=== PATIENT | male | born 1935 | race Caucasian/White ===

== ENCOUNTER 2019-03-30 21:35 | Inpatient (IN) | payer OTHER, MEDICARE ==
--- NOTE | 2019-03-30 22:06 | PDOC ---
History of Present Illness - General Chief Complaint: Coffee Ground Emesis Stated Complaint: VOMITTING Time Seen by Provider: 03/30/19 21:59 - History of Present Illness Initial Comments: 03/30/19 22:47 83M with pmh of CABG, ESRD s/p nephrostomy tubes, chronic anemia, Dm, pna, sent from [facility] found producing large amount of coffee ground emesis. EMS weas immediately called. Patient is tetraplegic and trached, non verbal. [place] Vitals: BP 151/97 103 98.2 100% Vent set up A/C mode 12 BPM, TV 400 Peep 5 FiO2 40% Patient is DNR Past History - Past Medical History Allergies/Adverse Reactions: Allergies Allergy/AdvReac Type Severity Reaction Status Date / Time chlorhexidine Allergy Verified 05/17/19 22:30 Home Medications: Ambulatory Orders Finasteride 5 mg GT DAILY 03/31/19 Latanoprost/Pf [Latanoprost 0.005% Eye Drop] 1 drop OP HS 03/31/19 Bimatoprost [Lumigan] 1 drop OU DAILY 04/26/19 Acetylcysteine Po/INH 20% [Mucomyst 20 Oral / INH Use Only*] 400 mg NEB RBID vial 05/06/19 Albuterol 0.083% Nebulizer Jossie [Ventolin 0.083% Nebulizer Soln -] 1 amp NEB RQ4H amp 05/06/19 Amino Acids/Protein Hydrolys [Prosource No Carb Liquid Pkt] 30 ml GT BID@0800, 1730 packet 05/06/19 Ascorbic Acid [Vitamin C -] 500 mg GT BID tablet 05/06/19 Bacitracin - [Bacitracin Topical Ointment -] 1 applic TP BID tube 05/06/19 Buspirone HCl [Buspar -] 5 mg PO TID PRN tablet 05/06/19 Diltiazem [Cardizem -] 60 mg PO BID tablet 05/06/19 FENTANYL 12mcg PATCH [DURAGESIC 12mcg PATCH -] 1 patch TD Q72H #0 patch.td72 MDD 1 05/06/19 Fentanyl Patch Waste [Duragesic Patch Waste] 1 each MC PRN PRN each 05/06/19 Metoclopramide Oral Soln [Reglan Oral Solution -] 5 mg PEG TIDAC udc 05/06/19 Metoprolol Tartrate [Lopressor -] 100 mg PO BID tablet 05/06/19 Multivit-Minerals [Certavite-Antioxidant Liquid] 15 ml PEG DAILY cup 05/06/19 Nystatin Powder [Nystop Powder -] 1 applic TP TID applic 05/06/19 Pantoprazole Suspension [Protonix Packets For Oral Suspension -] 40 mg NGT DAILY packet 05/06/19 Polyvinyl Alcohol [Artificial Tears] 1 drop OU QID drops 05/06/19 Sodium Bicarbonate - 650 mg GT DAILY tablet 05/06/19 Sodium Chloride Inhalation [Normal Saline For Inhalation -] 3 ml IH Q6H PRN vial.neb 05/06/19 Aa/Hydrolyzed Collagen, Whey [Lps 15-30 Liquid] 30 ml GT BID 05/08/19 Acetaminophen Oral Solution [Tylenol Oral Solution -] 650 mg GT Q4H PRN Oxycodone HCl 5 mg GT DAILY 05/08/19 Acetylcysteine Po/INH 20% [Mucomyst 20 Oral / INH Use Only*] 400 mg NEB RBID vial 05/13/19 Amox-Tr/K Cl [Augmentin 500-125mg Tablet -] 1 tab PO BID #14 tab 05/13/19 Furosemide Oral Solution [Lasix Oral Solution -] 40 mg GT BID@0600,1400 udc Heparin - 5,000 unit SQ BID vial 05/13/19 Levalbuterol HCl [Xopenex] 0.31 mg IH Q8H PRN vial.neb 05/13/19 Mupirocin Ointment [Bactroban Ointment (For Decolonization) -] 1 applic NS BID applic 05/13/19 Verapamil HCl [Calan -] 80 mg PEG TID tablet 05/13/19 Anemia: Yes COPD: Yes (trach) Diabetes: Yes HTN: Yes Hypercholesterolemia: Yes Psychiatric Problems: Yes Other medical history: c. diff - Psycho Social/Smoking Cessation Hx Smoking History: Unknown if ever smoked Review of Systems - Review of Systems Able to Perform ROS?: No (trached, non verbal) *Physical Exam - Vital Signs Last Vital Signs Temp Pulse Resp BP Pulse Ox 137 H 36 H 141/93 98 03/30/19 21:40 03/30/19 21:40 03/30/19 21:40 03/30/19 21:40 - Physical Exam General Appearance: Yes: Appropriately Dressed, Moderate Distress HEENT: positive: EOMI, ANDREA, Normal ENT Inspection Neck: positive: Other (trached) Respiratory/Chest: positive: Other (mechanically vented). negative: Chest Tender Cardiovascular: positive: Regular Rhythm, Regular Rate, S1, S2 Gastrointestinal/Abdominal: positive: Protuberent, Distended, Other (Rigid abdomen, PEG tube in place) Musculoskeletal: positive: Normal Inspection. negative: CVA Tenderness Extremity: positive: Normal Capillary Refill Integumentary: positive: Ecchymosis, Bruising Neurologic: positive: Respond to painful stimul, Responsive ED Treatment Course - LABORATORY CBC & Chemistry Diagram: 05/06/19 15:15 05/06/19 15:15 - RADIOLOGY Radiology Studies Ordered: Category Date Time Status CHEST X-RAY PORTABLE* [RAD] Stat Radiology 03/30/19 21:57 Ordered Medical Decision Making - Medical Decision Making 03/30/19 23:01 83M with pmh of CABG, ESRD s/p nephrostomy tubes, chronic anemia, Dm, pna, sent from [facility] found producing large amount of coffee ground emesis. EMS weas immediately called. Patient is tetraplegic and trached, non verbal. Patient is hemodynamically stable, will r/o anemia and assess the need for transfusion. Additionally due to distended abdomen we will scan abd/pelv, as well as chest to r/o aspiration. No suspicion for sepsis at this time, will defer blood culture, abx. 03/31/19 01:24 Small pleural effusions, 4.6 aneurysm of the ascending aorta, 5.0 infrarenal AAA s/p aortoiliac stent graft, moderate ascites extending into b/l inguinal hernias Patient to be admitted to ICU for upper gi bleed and respiratory failure Discharge - Discharge Information Problems reviewed: Yes Clinical Impression/Diagnosis: Coffee ground emesis, COPD (chronic obstructive pulmonary disease), Functional quadriplegia, Ascites Condition: Stable - Admission Yes - Follow up/Referral - Patient Discharge Instructions - Post Discharge Activity
[2019-03-30 22:49] LABS: BASO % 0.4 % (0-2.0); EOS % 1.8 % (0-4.5); HEMATOCRIT 25.4 % (35.4-49); HEMOGLOBIN 7.9 GM/dL (11.7-16.9); LYMPH % 3.7 % (8-40); MCH 31.4 pg (25.7-33.7); MCHC 30.9 g/dl (32.0-35.9); MEAN CELL VOLUME 101.6 fl (80-96); NEUT % 88.1 % (42.8-82.8); PLATELET COUNT 270 K/MM3 (134-434); RDW 20.8 % (11.9-15.9); WHITE BLOOD COUNT 12.4 K/mm3 (4.0-10.0)
[2019-03-30 22:50] LABS: EPI CELLS 0.9 /HPF (0-5/HPF); HYALINE CASTS 19 /lpf (0-8); PH,URINE 7.5 (5.0-8.0); URINE APPEARANCE CLOUDY; URINE BACTERIA 8341.5 /hpf (NEGATIVE); URINE BILIRUBIN NEGATIVE (NEGATIVE); URINE COLOR YELLOW; URINE GLUCOSE (UA) NEGATIVE (NEGATIVE); URINE KETONE NEGATIVE (NEGATIVE); URINE LEUK ESTERASE 3+ (NEGATIVE); URINE NITRITE NEGATIVE (NEGATIVE); URINE PROTEIN 2+ (NEGATIVE); URINE RBC 40 /hpf (0-4); URINE UROBILINOGEN 0.2 mg/dL (0.2-1.0); URINE WBC 213 /hpf (0-5)
[2019-03-30 23:17] LABS: ALBUMIN 1.9 g/dl (3.4-5.0); BILIRUBIN,TOTAL 0.6 mg/dL (0.2-1); BLOOD UREA NITROGEN 47.8 mg/dL (7-18); CALCIUM 8.4 mg/dL (8.5-10.1); CREATININE 1.1 mg/dL (0.55-1.3); POTASSIUM 4.5 mmol/L (3.5-5.1); TOT PROT 8.3 g/dl (6.4-8.2)
[2019-03-31] MEDS ORDERED: PIPERACILLIN/TAZOB 3.375 GM 3.375 GM in DEXTROSE 5%-WATER - 50 ML IVPB ONE ×2 (01:14→09:30)
--- NOTE | 2019-03-31 01:15 | PDOC ---
Documentation entered by Wellington Sauer SCRIBE, acting as scribe for Shahla Zelaya MD. Shahla Zelaya MD: This documentation has been prepared by the Camacho boyd Daniel, SCRIBE, under my direction and personally reviewed by me in its entirety. I confirm that the documentation accurately reflects all work, treatment, procedures, and medical decision making performed by me. Attending Attestation - Resident Resident Name: Brady George - ED Attending Attestation I have performed the following: I have examined & evaluated the patient, The case was reviewed & discussed with the resident, I agree w/resident's findings & plan, Exceptions are as noted - HPI HPI: 03/30/19 23:04 The patient is an 83 year old male with a past medical history of CABG, ESRD s/ p nephrostomy tubes, pneumonia, tracheotomy, PEG tube, diabetes, and anemia here today from [facility] for evaluation of coffee ground emesis. As per EMS, the patient had coffee ground emesis today while in the shelter. Patient is non verbal and unable to contribute to history. Allergies: chlorhexidine PCP: D[facility] - Physicial Exam PE: 03/31/19 00:49 GENERAL: 83-year-old male with an intact trach and multiple medical problems HEENT: Tracheostomy intact NECK: +trach CARDIOVASCULAR: +tachycardic. PULMONARY: No wheezing, rales ABDOMINAL: +hard. +distended. EXTREMITIES: + 3+ pitting edema in all extremities. , Scattered purpura on chronic skin changes noted No cyanosis. No clubbing. No calf tenderness. SKIN: +diffuse ecchymosis. Warm and dry NEUROLOGICAL:Patient is alert and tracks with his eyes Cooperative. Good eye contact. 03/31/19 01:11 - Medical Decision Making 03/31/19 01:14 Patient admitted for UTI, infiltrates Antibiotics started 03/31/19 01:15 His labs showed leukocytosis and also significant anemia with a hemoglobin less than 8 03/31/19 01:22 CAT scan of the abdomen pelvis shows nephrostomy tubes, CAT scan of the abdomen is no small bowel obstruction, ascites and some subcutaneous edema, no free air, liver spleen pancreas are unremarkable -prior graft for aorta noted 03/31/19 01:50 pt needs to be admitted to chronic vent unit or ICU
[2019-03-31] MEDS ORDERED: PIPERACILLIN/TAZOB 3.375 GM 3.375 GM/50 ML BAG IVPB ONE ×3 (01:18→18:35)
--- NOTE | 2019-03-31 03:20 | HP ---
Admitting History and Physical - Primary Care Physician PCP: Kelly Zhang ([facility]) - Admission Chief Complaint: Respiratory Distress, Coffee Ground Emesis History of Present Illness: This is an 83 y/o man from [facility] with a PMHx of CABG, ESRD s/p nephrostomy tubes, Pneumonia, Chronic Respiratory Failure s/p Tracheotomy/ Vent dependent, PEG tube, Diabetes Mellitus, Anemia. Who presents to the ED for evaluation of coffee ground emesis and respiratory distress, per [place] paperwork. Per ED record: As per EMS, the patient had coffee ground emesis today while in the intermediate. Patient is non verbal and unable to contribute to history. ED course was noted for: (1) (2) (3) History Source: Transfer Record Limitations to Obtaining History: Clinical Condition - Past Medical History Cardiovascular: Yes: Aneurysm, CAD, HTN, Hyperlipdemia Pulmonary: Yes: COPD, Pneumonia, Other (trach/vent dependent) Renal/: Yes: Renal Failure Heme/Onc: Yes: Anemia Endocrine: Yes: Diabetes Mellitus - Past Surgical History Past Surgical History: Yes: AAA Repair, CABG Additional Past Surgical History: Trach PEG Nephrostomy Tubes - Advance Directives Advance Directives: Yes: DNR - Smoking History Smoking history: Unknown if ever smoked Have you smoked in the past 12 months: No - Alcohol/Substance Use Hx Alcohol Use: No History of Substance Use: reports: None - Social History Usual Living Arrangement: Yes: [facility] ADL: Support Services History of Recent Travel: No Home Medications - Allergies Allergies/Adverse Reactions: Allergies Allergy/AdvReac Type Severity Reaction Status Date / Time chlorhexidine Allergy Verified 03/30/19 21:38 - Home Medications Home Medications: Ambulatory Orders Acetaminophen 325 mg PO BID 03/31/19 Cyanocobalamin Vit B-12 Inj. [Redisol] 1,000 mcg IM DAILY 03/31/19 Diltiazem [Cardizem -] 30 mg PO QID 03/31/19 Escitalopram Oxalate [Lexapro -] 20 mg PO ONCE 03/31/19 Ferrous Sulfate [Feosol] 300 mg GT ONCE 03/31/19 Finasteride 5 mg PO DAILY 03/31/19 Insulin Lispro [Humalog] 100 unit SQ DAILY 03/31/19 Latanoprost/Pf [Latanoprost 0.005% Eye Drop] 7.5 ml OP ONCE 03/31/19 Lisinopril 5 mg PO ONCE 03/31/19 Metoprolol Tartrate 50 mg PO Q6H 03/31/19 Risperidone 0.5 mg PO TID 03/31/19 Family Medical History Family History: Unable to Obtain Review of Systems Unable to obtain ROS, reason: Clinical Condition Physical Examination Vital Signs: Vital Signs Temperature 99.2 F 03/30/19 22:34 Pulse Rate 137 H 03/31/19 02:15 Respiratory Rate 20 03/31/19 02:15 Blood Pressure 134/89 03/31/19 02:15 O2 Sat by Pulse Oximetry (%) 100 03/31/19 02:15 Constitutional: Yes: Mild Distress, Pallor Eyes: Yes: Conjunctiva Clear (pale), PERRL HENT: Yes: WNL, Atraumatic, Normocephalic Neck: Yes: Supple, Other (trach-vent dependent) Cardiovascular: Yes: Regular Rate and Rhythm, S1, S2 Respiratory: Yes: Diminished, Rhonchi, Tachypnea, Other (trach- vent dependent thick brownish secretions noted around trach) Gastrointestinal: Yes: Normal Bowel Sounds, Abdomen, Obese, Ascites, Other (PEG - intact) ...Rectal Exam: Yes: Guaiac Negative Renal/: Yes: Other (s/p Nephrosotomy tubes with drainage bag) Edema: Yes Edema: LLE: 3+, RLE: 3+ Peripheral Pulses WNL: Yes Integumentary: Yes: Other (purpura) Neurological: Yes: Alert ...Motor Strength: WNL Psychiatric: Yes: Alert Labs: CBC, BMP 03/30/19 22:35 03/30/19 22:35 Imaging - Results Chest X-ray: Image Reviewed Cat Scan: Report Reviewed, Image Reviewed EKG: Image Reviewed Problem List - Problems (1) GI bleed Assessment/Plan: Continue cardiac monitoring Requires ICU 2/2 Trach- Vent dependent Appreciate GI consult Appreciate [employer] consult HGB 7.9, HCT 47.8 PRBC- pending Monitor CBC, BMP closely Stool Occult neg Protonix Code(s): K92.2 - GASTROINTESTINAL HEMORRHAGE, UNSPECIFIED (2) Acute and chronic respiratory failure Assessment/Plan: Chronic Trach/Vent dependent Appreciate Pulmonology consult Monitor Spo2 Duonebs Continue home meds Code(s): J96.20 - ACUTE AND CHR RESP FAILURE, UNSP W HYPOXIA OR HYPERCAPNIA (3) ESRD (end stage renal disease) Assessment/Plan: Chronic Will continue to monitor an treat with interventions accordingly Consider Nephrology consult Avoid Nephrotoxic drugs Code(s): N18.6 - END STAGE RENAL DISEASE (4) Diabetes mellitus Assessment/Plan: Controlled BGMs Hold ISS until feeding is continued Monitor BMP Code(s): E11.9 - TYPE 2 DIABETES MELLITUS WITHOUT COMPLICATIONS (5) Anemia Assessment/Plan: Likely secondary to ESRD vs GIB PRBCs pending Monitor CBC closely Monitor vitals closely Appreciate Hematology consult Ferritin, FE, TIBC Stool Occult- neg Code(s): D64.9 - ANEMIA, UNSPECIFIED (6) Status post tracheostomy Assessment/Plan: Vent Settings, per [place] Appreciate Pulmonology consult Code(s): Z93.0 - TRACHEOSTOMY STATUS (7) COPD (chronic obstructive pulmonary disease) Assessment/Plan: Continue home meds O2 Code(s): J44.9 - CHRONIC OBSTRUCTIVE PULMONARY DISEASE, UNSPECIFIED (8) HTN (hypertension) Assessment/Plan: Stable Monitor BP No current meds, treat accordingly Code(s): I10 - ESSENTIAL (PRIMARY) HYPERTENSION (9) HLD (hyperlipidemia) Code(s): E78.5 - HYPERLIPIDEMIA, UNSPECIFIED Assessment/Plan This is a 83 y/o man from [facility] with a PMHx of CABG, HTN, HLD, ESRD s/p Nephrostomy Tubes, COPD s/p Trach/Vent Dependent, Pneumonia, PEG Placement, DM, Anemia. Admitted to ICU for Sepsis, UTI, GI Bleed, Acute on Chronic Respiratory Failure, ESRD for further evaluation of their emergent condition. Plan: See Problem List FEN Replete lytes prn NPO DVT ppx TEDs Hold AC secondary to GI Bleed Code Status: MOLST, DNR Dispo: Requires Inpatient Care Visit type - Emergency Visit Emergency Visit: Yes ED Registration Date: 03/30/19 Care time: The patient presented to the Emergency Department on the above date and was hospitalized for further evaluation of their emergent condition. - New Patient This patient is new to me today: Yes Date on this admission: 03/31/19 - Critical Care Critical Care patient: Yes Total Critical Care Time (in minutes): 40 Critical Care Statement: The care of this patient involved high complexity decision making to prevent further life threatening deterioration of the patient 's condition and/or to evaluate & treat vital organ system(s) failure or risk of failure.
--- NOTE | 2019-03-31 04:56 | CONSULT ---
Consultation: REQUESTING PROVIDER: CONSULT REQUEST: We have been asked to medically evaluate this patient for ICU admission. HISTORY OF PRESENT ILLNESS: 83 y/o/m from [facility] with PMHx of CABG, HTN, HLD, ESRD s/p Nephrostomy Tubes, COPD s/p Trach/Vent Dependent, Pneumonia, PEG Placement, DM, Anemia presenting for coffee ground emesis from alf. As per alf patient had 4 episodes coffee ground emesis at alf after which EMS was called and patient was brought to the hospital. As per alf patient does have a labile heart rate which fluctuates from the 70s-110s. Patient non-verbal and unable to contribute to history. Patient to be admitted for UTI, pulmonary infiltrates, GI bleed. CT chest, abd, pelvis showing small pleural effusions, 4.6 aneurysm of the ascending aorta, 5.0 infrarenal AAA s/p aortoiliac stent graft, moderate ascites extending into b/l inguinal hernias. REVIEW OF SYSTEMS: unable to obtain 2/2 patient status PHYSICAL EXAMINATION Vital Signs - 24 hr 03/30/19 03/30/19 03/30/19 21:40 22:07 22:34 Temperature 99.2 F Pulse Rate 137 H Pulse Rate [ Right] Respiratory 36 H 37 H Rate Blood Pressure 141/93 Blood Pressure [Right Arm] O2 Sat by Pulse 98 Oximetry (%) 03/31/19 03/31/19 01:59 02:15 Temperature Pulse Rate Pulse Rate [ 137 H Right] Respiratory 32 H 20 Rate Blood Pressure Blood Pressure 134/89 [Right Arm] O2 Sat by Pulse 100 Oximetry (%) GENERAL: Awake, alert HEAD: Normal with no signs of trauma. EYES: EOMI, no scleral icterus EARS, NOSE, THROAT: Dry mucous membranes NECK: trachesotomy in place LUNGS: Diminished breath sounds bilaterally, tracheostomy vent sounds on auscultation. No wheezes, and no crackles. No accessory muscle use HEART: Tachycardic ABDOMEN: distended, hard abdomen. not tender to palpation. PEG tube in place MUSCULOSKELETAL: Normal range of motion at all joints. No bony deformities or tenderness. No CVA tenderness. EXTREMITIES: 2+ pulses, warm. 2+ edema non pitting NEUROLOGICAL: alert, tracks PSYCHIATRIC: Cooperative. Good eye contact SKIN: Warm, dry Laboratory Results - last 24 hr 03/30/19 03/30/1919 22:35 22:35 22:35 WBC 12.4 H RBC 2.50 L Hgb 7.9 L Hct 25.4 L MCV 101.6 H MCH 31.4 MCHC 30.9 L RDW 20.8 H Plt Count 270 MPV 9.0 Absolute Neuts (auto) 10.9 H Neutrophils % 88.1 H Lymphocytes % 3.7 L Monocytes % 6.0 Eosinophils % 1.8 Basophils % 0.4 Nucleated RBC % 0 Retic Count Sodium 147 H Potassium 4.5 Chloride 113 H Carbon Dioxide 26 Anion Gap 8 BUN 47.8 H Creatinine 1.1 Est GFR (CKD-EPI)AfAm 72.07 Est GFR (CKD-EPI)NonAf 62.19 Random Glucose 96 Lactic Acid Calcium 8.4 L Total Bilirubin 0.6 AST 22 ALT 23 Alkaline Phosphatase 223 H Creatine Kinase 26 Troponin I < 0.02 Total Protein 8.3 H Albumin 1.9 L Urine Color Urine Appearance Urine pH Ur Specific [place] Urine Protein Urine Glucose (UA) Urine Ketones Urine Blood Urine Nitrite Urine Bilirubin Urine Urobilinogen Ur Leukocyte Esterase Urine WBC (Auto) Urine RBC (Auto) Urine Casts (Auto) U Epithel Cells (Auto) Urine Bacteria (Auto) Stool Occult Blood Blood Type Antibody Screen 03/30/19 03/30/19 03/30/19 22:35 22:35 22:35 WBC RBC Hgb Hct MCV MCH MCHC RDW Plt Count MPV Absolute Neuts (auto) Neutrophils % Lymphocytes % Monocytes % Eosinophils % Basophils % Nucleated RBC % Retic Count 4.82 H Sodium Potassium Chloride Carbon Dioxide Anion Gap BUN Creatinine Est GFR (CKD-EPI)AfAm Est GFR (CKD-EPI)NonAf Random Glucose Lactic Acid Calcium Total Bilirubin AST ALT Alkaline Phosphatase Creatine Kinase Troponin I Total Protein Albumin Urine Color Urine Appearance Urine pH Ur Specific [place] Urine Protein Urine Glucose (UA) Urine Ketones Urine Blood Urine Nitrite Urine Bilirubin Urine Urobilinogen Ur Leukocyte Esterase Urine WBC (Auto) Urine RBC (Auto) Urine Casts (Auto) U Epithel Cells (Auto) Urine Bacteria (Auto) Stool Occult Blood Negative Blood Type O NEGATIVE Antibody Screen Negative 03/30/19 03/31/19 22:35 01:27 WBC RBC Hgb Hct MCV MCH MCHC RDW Plt Count MPV Absolute Neuts (auto) Neutrophils % Lymphocytes % Monocytes % Eosinophils % Basophils % Nucleated RBC % Retic Count Sodium Potassium Chloride Carbon Dioxide Anion Gap BUN Creatinine Est GFR (CKD-EPI)AfAm Est GFR (CKD-EPI)NonAf Random Glucose Lactic Acid 2.1 H Calcium Total Bilirubin AST ALT Alkaline Phosphatase Creatine Kinase Troponin I Total Protein Albumin Urine Color Yellow Urine Appearance Cloudy Urine pH 7.5 Ur Specific [place] 1.017 Urine Protein 2+ H Urine Glucose (UA) Negative Urine Ketones Negative Urine Blood 2+ H Urine Nitrite Negative Urine Bilirubin Negative Urine Urobilinogen 0.2 Ur Leukocyte Esterase 3+ H Urine WBC (Auto) 213 Urine RBC (Auto) 40 Urine Casts (Auto) 19 U Epithel Cells (Auto) 0.9 Urine Bacteria (Auto) 8341.5 Stool Occult Blood Blood Type Antibody Screen Active Medications Generic Name Dose Route Start Last Admin Trade Name Freq PRN Reason Stop Dose Admin Mupirocin 1 applic 03/31/19 10:00 Bactroban Ointment (For Decolonization) - NS 04/05/19 09:59 BID [facility] ASSESSMENT/PLAN: 83 y/o/m from [facility] with PMHx of CABG, HTN, HLD, ESRD s/p Nephrostomy Tubes, COPD s/p Trach/Vent Dependent, Pneumonia, PEG Placement, DM, Anemia presenting for coffee ground emesis from alf. Patient to be admitted for UTI, pulmonary infiltrates, GI bleed. #Neuro - alert, tracks movement - Continue home medications as per primary team #Cardiac - Hx of CABG, HTN, HLD - Chest CT showing 4.6 aneurysm of the ascending aorta, 5.0 infrarenal AAA s/p aortoiliac stent graft. Can monitor for signs of enlargement #Pulm - hx COPD s/p tracheostomy placement. On vent - Consider ABGs as needed to adjust vent settings appropriately - pleural effusions seen on Chest CT - maintain SpO2 >90% #GI - patient with multiple episodes of coffee ground emesis in [place] as per MI staff - recommend GI consult - Stool for occult blood test negative - monitor H&H with serial CBCs - consider blood transfusion to reach Hgb level of 8 due to cardiac history - H&H - 7.01/13.4 #ID - UA positive for UTI - Given zosyn in ED, will give 2nd dose 8hrs after initial dose - Lactic Acid at 2.1, trend to normal - WBC at 12.4, afebrile. monitor - Consider ID consult #Endo - Hx of DM - BGMs - ISS #Renal - hx of ESRD s/p nephrostomy tubes - BUN/Cr 47.8/1.1 - monitor urine output, BUN/Cr #Prophylaxis - hold chemical AC due to concern for GI bleed #FEN - hold IVF as patient has edema of extremities, pleural effusions on CXR - con consider PEG tube feeds #Disposition - Stable for monitoring on vent floor - Will monitor patient closely, can re-consult in morning if patient's condition is worsening - Patient is DNR Visit type - Emergency Visit Emergency Visit: Yes ED Registration Date: 03/31/19 Care time: The patient presented to the Emergency Department on the above date and was hospitalized for further evaluation of their emergent condition. - New Patient This patient is new to me today: Yes Date on this admission: 03/31/19 - Critical Care Critical Care patient: No ATTENDING PHYSICIAN STATEMENT I saw and evaluated the patient. I reviewed the resident's note and discussed the case with the resident. I agree with the resident's findings and plan as documented. SUBJECTIVE: OBJECTIVE: ASSESSMENT AND PLAN:
[2019-03-31] MEDS ORDERED: METOPROLOL TARTRATE 50 MG TABLET (FP) ONE ×4 (06:11→18:51)
[2019-03-31] MEDS: METOPROLOL TARTRATE 50 MG TABLET (FP) PEG SCH ×3 (06:16→18:30)
[2019-03-31 07:33] LABS: BASO % 0.3 % (0-2.0); EOS % 0.9 % (0-4.5); HEMATOCRIT 22.9 % (35.4-49); HEMOGLOBIN 7.3 GM/dL (11.7-16.9); LYMPH % 3.5 % (8-40); MCH 32.4 pg (25.7-33.7); MCHC 31.9 g/dl (32.0-35.9); MEAN CELL VOLUME 101.5 fl (80-96); MEAN PLT VOLUME 8.8 fl (7.5-11.1); NEUT % 88.3 % (42.8-82.8); PLATELET COUNT 238 K/MM3 (134-434); RBC 2.26 M/mm3 (4.00-5.60); RDW 21.4 % (11.9-15.9); WHITE BLOOD COUNT 12.7 K/mm3 (4.0-10.0)
[2019-03-31 07:56] LABS: BLOOD UREA NITROGEN 49.4 mg/dL (7-18); CALCIUM 7.8 mg/dL (8.5-10.1); CREATININE 1.1 mg/dL (0.55-1.3); MAGNESIUM 2.5 mg/dL (1.8-2.4); PHOSPHOROUS 3.8 mg/dL (2.5-4.9); POTASSIUM 4.1 mmol/L (3.5-5.1)
--- NOTE | 2019-03-31 08:40 | CON.GI ---
Consult Consult Specialty:: Gastroenterology Referred by:: Dr. Waters - History of Present Illness Chief Complaint: Coffee ground emesis History of Present Illness: 83yo male h/o Prostate ca s/p radiation, CAD s/p CABG (05/2018), DM, HTN, ESRD s/ p Nephrostomy Tubes, COPD s/p Trach/Vent Dependent, PEG presenting from senior living with coffee ground emesis. Pt awake/alert, attempts to verbalize though unable to provide history. Notes reviewed and spoke with pts son by phone, pt noted to have episodes of coffee ground emesis at senior living. Pt denies abdominal pain or nausea. No vomiting reported in ED. Brown bm noted per nursing staff. Taking iron supplementation. Per pts son pt had complicated hospital course following CABG at [facility], also had GI and bleeding, underwent endoscopy without obvious source found. No previous records available and unclear Hb baseline. Also states they had difficulty controlled HR in setting of recent onset A fib. CT chest/abd/pelvis: Bilateral pleural effusions, consolidation, moderate to large ascites - History Source History Provided By: Family Member, Medical Record - Past Medical History Cardio/Vascular: Yes: Aneurysm, CAD, HTN, Hyperlipdemia Pulmonary: Yes: COPD, Pneumonia, Other (trach/vent dependent) Renal/: Yes: Renal Failure Endocrine: Yes: Diabetes Mellitus - Past Surgical History Past Surgical History: Yes: AAA Repair, CABG - Alcohol/Substance Use Hx Alcohol Use: No History of Substance Use: reports: None - Smoking History Smoking history: Unknown if ever smoked Have you smoked in the past 12 months: No - Social History ADL: Support Services History of Recent Travel: No Home Medications - Allergies Allergies/Adverse Reactions: Allergies Allergy/AdvReac Type Severity Reaction Status Date / Time chlorhexidine Allergy Verified 03/30/19 21:38 - Home Medications Home Medications: Ambulatory Orders Acetaminophen 325 mg PO BID 03/31/19 Cyanocobalamin Vit B-12 Inj. [Redisol] 1,000 mcg IM DAILY 03/31/19 Diltiazem [Cardizem -] 30 mg PO QID 03/31/19 Escitalopram Oxalate [Lexapro -] 20 mg PO ONCE 03/31/19 Ferrous Sulfate [Feosol] 300 mg GT ONCE 03/31/19 Finasteride 5 mg PO DAILY 03/31/19 Insulin Lispro [Humalog] 100 unit SQ DAILY 03/31/19 Latanoprost/Pf [Latanoprost 0.005% Eye Drop] 7.5 ml OP ONCE 03/31/19 Lisinopril 5 mg PO ONCE 03/31/19 Metoprolol Tartrate 50 mg PO Q6H 03/31/19 Risperidone 0.5 mg PO TID 03/31/19 Family Medical History Family History: Unable to Obtain Review of Systems Unable to obtain ROS, reason: Pt minimally verbal Physical Exam-GI Vital Signs: Vital Signs Temperature 99.2 F 03/30/19 22:34 Pulse Rate 138 H 03/31/19 06:14 Respiratory Rate 24 H 03/31/19 06:14 Blood Pressure 123/72 03/31/19 06:14 O2 Sat by Pulse Oximetry (%) 100 03/31/19 06:14 Constitutional: Yes: No Distress, Calm, Other (tracheostomy in place on vent) Cardiovascular: Yes: Tachycardia Respiratory: Yes: Mechanically Ventilated ...Palpate: Yes: Other (Abd softly distended, nontender, +PEG in place, flushed with greenish secretions, scant coffee grounds material) Labs: CBC, BMP 03/31/19 06:50 03/31/19 06:50 Imaging - Results Cat Scan: Report Reviewed, Image Reviewed Problem List - Problems (1) Coffee ground emesis Assessment/Plan: 83yo male h/o CABG, HTN, ESRD s/p Nephrostomy Tubes, COPD s/p Trach/Vent Dependent, PEG, DM presenting from senior living with coffee ground emesis with macrocytic anemia. CT revealing bilateral pleural effusions, consolidation and ascites. Azotemia noted however brown stool and scant coffee grounds mostly greenish secretions via PEG. Unclear Hb baseline. May have gastritis/gastropathy , PUD, esophagitis, avms in setting of possible ileus/delayed emptying however pt tachycardic with leucocytosis and underlying infection to be excluded. Pt DNR. -No urgency for endoscopy in absence of overt or ongoing GI bleed and considering pts age/comorbidities risks/benefits need to be carefully weighed. Spoke with pts son and discussed risks/benefits of endoscopy, states he would be agreeable to endoscopy if needed to exclude a source of bleeding. -Continue to monitor Hb (try to obtain prior labs if possible to determine baseline) -NPO for now -PPI daily -Try to obtain endoscopy reports from [facility] if possible ( within 6-8 months per pts son) -Check iron studies/ferritin -Continue optimization from cardiorespiratory standpoint, needs HR control and infection excluded -Recommend RUQ US to further assess liver parenchyma and for ascites and consider diagnostic paracentesis though possibly cardiac in origin -Follow up cultures -If overt bleeding with drop in Hb or hemodynamic instability please notify GI for possible more urgent intervention otherwise would reassess and consider EGD once optimized Code(s): K92.0 - HEMATEMESIS
[2019-03-31] MEDS ORDERED: dilTIAZem HCL 30 MG TABLET (FP) NR SCH ×2 (09:15→10:00)
[2019-03-31 09:16] LABS: INR 1.49 (0.83-1.09); PROTHROMBIN TIME (PATIENT) 17.7 SEC (9.7-13.0)
[2019-03-31 09:19] LABS: ACTIVATED PTT 33.6 SECONDS (25.2-36.5)
[2019-03-31] MEDS ORDERED: dilTIAZem HCL 30 MG TABLET (FP) ONE ×4 (09:19→16:10)
[2019-03-31] MEDS ORDERED: LISINOPRIL 5 MG TABLET (FP) ONE ×2 (09:19→09:30)
[2019-03-31] MEDS: LISINOPRIL 5 MG TABLET (FP) PEG SCH (09:30)
[2019-03-31] MEDS: dilTIAZem HCL 30 MG TABLET (FP) NR SCH ×3 (09:42→21:54)
[2019-03-31] MEDS: PIPERACILLIN/TAZOB 3.375 GM 3.375 GM in DEXTROSE 5%-WATER - 50 ML IVPB SCH ×2 (09:42→18:30)
--- NOTE | 2019-03-31 09:42 | PN ---
Progress Note, Physician History of Present Illness: 83 y/o/m from [facility] with PMHx of CABG, HTN, HLD, ESRD s/p Nephrostomy Tubes, COPD s/p Trach/Vent Dependent, Pneumonia, PEG Placement, DM, Anemia [facility] - Current Medication List Current Medications: Active Medications Diltiazem HCl (Cardizem -) 30 mg NR Q6H [facility]SEM Last Admin: 03/31/19 09:42 Dose: Not Given Piperacillin Sod/Tazobactam (Sod 3.375 gm/ Dextrose) 50 mls @ 100 mls/hr IVPB ONCE ONE; Protocol Stop: 03/31/19 09:59 Last Admin: 03/31/19 09:30 Dose: 100 mls/hr Piperacillin Sod/Tazobactam (Sod 3.375 gm/ Dextrose) 50 mls @ 100 mls/hr IVPB Q8H-IV BASSEM; Protocol Stop: 03/31/19 18:29 Last Admin: 03/31/19 09:42 Dose: Not Given Piperacillin Sod/Tazobactam (Sod 3.375 gm/ Dextrose) 50 mls @ 100 mls/hr IVPB Q8H-IV BASSEM; Protocol Lisinopril (Prinivil) 5 mg PEG DAILY [facility] Last Admin: 03/31/19 09:30 Dose: 5 mg Metoprolol Tartrate (Lopressor -) 50 mg PEG Q6HPO [facility] Last Admin: 03/31/19 06:16 Dose: 50 mg Mupirocin (Bactroban Ointment (For Decolonization) -) 1 applic NS BID BASSEM Stop: 04/05/19 09:59 - Objective Vital Signs: Vital Signs Temperature 99.2 F 03/30/19 22:34 Pulse Rate 138 H 03/31/19 06:14 Respiratory Rate 24 H 03/31/19 06:14 Blood Pressure 123/72 03/31/19 06:14 O2 Sat by Pulse Oximetry (%) 100 03/31/19 06:14 Cardiovascular: Yes: Tachycardia, Pulse Irregular, S1, S2 Respiratory: Yes: Mechanically Ventilated, Rhonchi Gastrointestinal: Yes: Normal Bowel Sounds, Soft Edema: Yes Labs: CBC, BMP 03/31/19 06:50 03/31/19 06:50 INR, PTT INR 1.49 (0.83-1.09) H 03/31/19 08:50 Problem List - Problems (1) Coffee ground emesis Assessment/Plan: TRANSFUSE PRBC GI CONSULT FOLLOW LABS Code(s): K92.0 - HEMATEMESIS (2) Anemia Assessment/Plan: ABOVE Code(s): D64.9 - ANEMIA, UNSPECIFIED (3) Sepsis Assessment/Plan: R/O UTI -PNA CULTURES FOLLOW CXR ABX ID CONSULT Code(s): A41.9 - SEPSIS, UNSPECIFIED ORGANISM (4) Acute and chronic respiratory failure Assessment/Plan: NEBS PULM CONSULT VENT Code(s): J96.20 - ACUTE AND CHR RESP FAILURE, UNSP W HYPOXIA OR HYPERCAPNIA (5) COPD (chronic obstructive pulmonary disease) Assessment/Plan: ABOVE Code(s): J44.9 - CHRONIC OBSTRUCTIVE PULMONARY DISEASE, UNSPECIFIED (6) Diabetes mellitus Assessment/Plan: BGM Code(s): E11.9 - TYPE 2 DIABETES MELLITUS WITHOUT COMPLICATIONS (7) HTN (hypertension) Code(s): I10 - ESSENTIAL (PRIMARY) HYPERTENSION
--- NOTE | 2019-03-31 10:12 | EKG ---
Test Reason : Blood Pressure : / mmHG Vent. Rate : 136 BPM Atrial Rate : 136 BPM P-R Int : 152 ms QRS Dur : 156 ms QT Int : 296 ms P-R-T Axes : 000 -47 149 degrees QTc Int : 445 ms a trial tachycardia with 2;1 block LEFT AXIS DEVIATION NON-SPECIFIC INTRA-VENTRICULAR CONDUCTION BLOCK ABNORMAL ECG NO PREVIOUS ECGS AVAILABLE Confirmed by CLARENCE TELLO MD ([id number]) on 03/31/2019 10:11:36 AM Referred By: Confirmed By:CLARENCE TELLO MD
--- NOTE | 2019-03-31 10:40 | PN ---
Progress Note (short form) - Note Progress Note: ID consult dictated imp/reccd 83 yo man chronic resp failure trach , recently admitted 03/17 to [facility]- details not known- vre noted sent for coffee ground emesis noted to be anemic and tachycardic no hypotension lactic acid 2.1 wbc 12.4 no fever alert follows commands- is able to move his hands and feet has bilateral PCN tubes further details not known ct scans with ascites/anasarca/bilateral pleural effusions with consolidation/ atelectasis of the lower lobes I doubt he has infection but given perisistent tachycardia will continue zosyn pending cultures blood transfusion has been ordered GI eval- he has an elevated retic count contact isolation for VRE
--- NOTE | 2019-03-31 12:49 | PN ---
Teaching Attending Note Name of Resident: Sabrina Schultz ATTENDING PHYSICIAN STATEMENT I saw and evaluated the patient. I reviewed the resident's note and discussed the case with the resident. I agree with the resident's findings and plan as documented. SUBJECTIVE: Pt seen and examined in the ED. Remains tachycardic in rapid atrial flutter, about to receive PRBC transfusion. OBJECTIVE: Vital Signs Period Temp Pulse Resp BP Sys/Kang Pulse Ox Last 24 Hr 98.5 F-99.2 F 137-140 12-37 103-141/65-93 98-100 Intake & Output 03/28/19 03/29/19 03/30/19 03/31/19 23:59 23:59 23:59 23:59 Output Total 200 Balance -200 Weight 79.379 kg Gen: vented, awake Heart: tachycardic, regular Lung: decreased breath sounds at the bases Abd: soft, nontender, bilateral nephrostomy tubes Ext: no edema CBC, BMP 03/31/19 06:50 03/31/19 06:50 Active Medications Diltiazem HCl (Cardizem -) 30 mg NR Q6H [facility] Last Admin: 03/31/19 09:42 Dose: Not Given Piperacillin Sod/Tazobactam (Sod 3.375 gm/ Dextrose) 50 mls @ 100 mls/hr IVPB Q8H-IV BASSEM; Protocol Stop: 03/31/19 18:29 Last Admin: 03/31/19 09:42 Dose: Not Given Lisinopril (Prinivil) 5 mg PEG DAILY [facility] Last Admin: 03/31/19 09:30 Dose: 5 mg Metoprolol Tartrate (Lopressor -) 50 mg PEG Q6HPO [facility] Last Admin: 03/31/19 06:16 Dose: 50 mg Mupirocin (Bactroban Ointment (For Decolonization) -) 1 applic NS BID [facility] Stop: 04/05/19 09:59 ASSESSMENT AND PLAN: Chronic Respiratory Failure r/o UTI/Pneumonia/Sepsis Lactic Acidosis Atrial Flutter with RVR r/o GI Bleed Anemia CAD s/p CABG COPD HTN Hyperlipidemia - continue antibiotics - f/u cultures - transfuse PRBC - protonix - monitor H/H - rate control - hold anticoagulation - IVF - hold feeds - will need ICU monitoring if heart rates remain rapid
[2019-03-31] MEDS ORDERED: DIGOXIN 0.5 MG/2 ML AMPUL IVPUSH ONE (13:19)
--- NOTE | 2019-03-31 16:37 | CON.CARD ---
Consult Consult Specialty:: Cardiology Referred by:: kamron Pratt Reason for Consultation:: Aflutter - History of Present Illness Chief Complaint: coffee ground emesis History of Present Illness: 83 year old male with a pmhx of prostate CA s/p radiation, CAD s/p CABG 05/2018, dm, htn, esrd, copd, and s/p Trach/vent/peg sent from [facility] for coffee ground emesis. Patient cannot give history. Hgb 7.3 EKG: atach/flutter with VR 136bpm, NIVCD CT chest/abd/pelvis: Bilateral pleural effusions, consolidation, moderate to large ascites - History Source History Provided By: Medical Record - Past Medical History Cardio/Vascular: Yes: Aneurysm, CAD, HTN, Hyperlipdemia Pulmonary: Yes: COPD, Pneumonia, Other (trach/vent dependent) Renal/: Yes: Renal Failure Endocrine: Yes: Diabetes Mellitus - Past Surgical History Past Surgical History: Yes: AAA Repair, CABG - Alcohol/Substance Use Hx Alcohol Use: No History of Substance Use: reports: None - Smoking History Smoking history: Unknown if ever smoked Have you smoked in the past 12 months: No - Social History ADL: Support Services History of Recent Travel: No Home Medications - Allergies Allergies/Adverse Reactions: Allergies Allergy/AdvReac Type Severity Reaction Status Date / Time chlorhexidine Allergy Verified 03/30/19 21:38 - Home Medications Home Medications: Ambulatory Orders Acetaminophen 325 mg PO BID 03/31/19 Cyanocobalamin Vit B-12 Inj. [Redisol] 1,000 mcg IM DAILY 03/31/19 Diltiazem [Cardizem -] 30 mg PO QID 03/31/19 Escitalopram Oxalate [Lexapro -] 20 mg PO ONCE 03/31/19 Ferrous Sulfate [Feosol] 300 mg GT ONCE 03/31/19 Finasteride 5 mg PO DAILY 03/31/19 Insulin Lispro [Humalog] 100 unit SQ DAILY 03/31/19 Latanoprost/Pf [Latanoprost 0.005% Eye Drop] 7.5 ml OP ONCE 03/31/19 Lisinopril 5 mg PO ONCE 03/31/19 Metoprolol Tartrate 50 mg PO Q6H 03/31/19 Risperidone 0.5 mg PO TID 03/31/19 Vital Signs: Vital Signs Temperature 98.3 F 03/31/19 12:45 Pulse Rate 139 H 03/31/19 12:45 Respiratory Rate 23 H 03/31/19 14:10 Blood Pressure 111/72 03/31/19 12:45 O2 Sat by Pulse Oximetry (%) 100 03/31/19 11:07 Constitutional: Yes: Other (trach/vent) Neck: Yes: Supple Respiratory: Yes: Diminished Gastrointestinal: Yes: Soft Cardiovascular: Yes: Regular Rate and Rhythm JVD: No Carotid Bruit: No Heart Sounds: Yes: S1, S2 Edema: LLE: 1+, RLE: 1+ - Other Data Labs, Other Data: CBC, BMP 03/31/19 06:50 03/31/19 06:50 INR, PTT INR 1.49 (0.83-1.09) H 03/31/19 08:50 Troponin, BNP 03/30/19 22:35 Troponin I < 0.02 Troponin, BNP 03/30/19 22:35 Troponin I < 0.02 Imaging - Results Chest X-ray: Report Reviewed EKG: Image Reviewed Assessment/Plan 83 year old male with a pmhx of prostate CA s/p radiation, CAD s/p CABG 05/2018, dm, htn, esrd, copd, and s/p Trach/vent/peg sent from [facility] for coffee ground emesis. Patient cannot give history. Hgb 7.3 WBC 12 EKG: atach/flutter with VR 136bpm, NIVCD CT chest/abd/pelvis: Bilateral pleural effusions, consolidation, moderate to large ascites 4.6cm Throacic anuerysm 1) CV -No intervention for TAA 4.6cm. BP control and beta filippo -Abx as per primary team. HR uncontrolled in setting of anemia and possible infection. Tx underlying infection if indicated. F/u GI regarding anemia and any GI work up indicated. Restart home metoprolol and diltiazem. HR now controlled around 90bpm. If becomes uncontrolled on regimen will adjust home meds. As per chart arrhythmia occured in past but patient not on AC. Would not start AC yet, but if no contraindication found by primary team and as per GI in the future than consider AC in future.
[2019-03-31] MEDS: MUPIROCIN 2% TOPICAL OINTMENT FOR DECOLONIZATION NS SCH (21:55)
[2019-03-31] MEDS ORDERED: PNEUMOC 13-VAL CONJ-DIP CRM/PF 0.5 ML DISP.SYRIN IM ONE (22:16)
[2019-04-01] MEDS ORDERED: PIPERACILLIN/TAZOBACTAM 3.375 GM VIAL IVPB ONE ×2 (01:33→17:59)
[2019-04-01] MEDS ORDERED: DEXTROSE 5%-WATER - 50 ML IVPB ONE (01:33)
[2019-04-01] MEDS ORDERED: PIPERACILLIN/TAZOB 3.375 GM 3.375 GM in DEXTROSE 5%-WATER - 50 ML IVPB SCH (02:00)
[2019-04-01] MEDS: dilTIAZem HCL 30 MG TABLET (FP) NR SCH ×4 (02:56→21:27)
[2019-04-01] MEDS: METOPROLOL TARTRATE 50 MG TABLET (FP) PEG SCH ×4 (06:12→18:32)
--- NOTE | 2019-04-01 07:14 | PN ---
Physical Exam: SUBJECTIVE: Patient seen and examined. Unable to talk due to trach but able to nod and shake head in answer in questions. Spoke with son over the phone who states that patient was recently in a LTAC and needed blood transfusions every 10 days or so. Patient's heart rate is now controlled ~91. OBJECTIVE: Vital Signs Period Temp Pulse Resp BP Sys/Kang Pulse Ox Last 24 Hr 98.3 F-98.5 F 89-140 10-24 103-137/63-83 99-100 GENERAL: Awake, alert HEAD: Normal with no signs of trauma. EYES: EOMI, no scleral icterus ENT: Dry mucous membranes NECK: trachesotomy in place LUNGS: Diminished breath sounds bilaterally. No wheezes, and no crackles. No accessory muscle use HEART: RRR, no murmur noted ABDOMEN: distended, tense abdomen. not tender to palpation. PEG tube in place EXTREMITIES: 2+ pulses, warm. 2+ edema non pitting NEUROLOGICAL: alert, tracks with eye movement, able to answer questions by nodding/shaking head PSYCHIATRIC: Cooperative. Good eye contact SKIN: Warm, dry Laboratory Results - last 24 hr 03/30/19 03/31/19 03/31/19 22:35 06:50 06:50 WBC 12.7 H RBC 2.26 L Hgb 7.3 L Hct 22.9 L MCV 101.5 H MCH 32.4 MCHC 31.9 L RDW 21.4 H Plt Count 238 MPV 8.8 Absolute Neuts (auto) 11.2 H Neutrophils % 88.3 H Lymphocytes % 3.5 L Monocytes % 7.0 Eosinophils % 0.9 Basophils % 0.3 Nucleated RBC % 0 PT with INR INR PTT (Actin FS) Sodium Potassium Chloride Carbon Dioxide Anion Gap BUN Creatinine Est GFR (CKD-EPI)AfAm Est GFR (CKD-EPI)NonAf POC Glucometer Random Glucose Lactic Acid Calcium Phosphorus Magnesium Blood Type O NEGATIVE O NEGATIVE Antibody Screen Negative Crossmatch See Detail 03/31/19 03/31/19 03/31/19 06:50 06:55 08:50 WBC RBC Hgb Hct MCV MCH MCHC RDW Plt Count MPV Absolute Neuts (auto) Neutrophils % Lymphocytes % Monocytes % Eosinophils % Basophils % Nucleated RBC % PT with INR 17.70 H INR 1.49 H PTT (Actin FS) 33.6 Sodium 146 H Potassium 4.1 Chloride 113 H Carbon Dioxide 25 Anion Gap 8 BUN 49.4 H Creatinine 1.1 Est GFR (CKD-EPI)AfAm 72.07 Est GFR (CKD-EPI)NonAf 62.19 POC Glucometer Random Glucose 89 Lactic Acid 1.3 Calcium 7.8 L Phosphorus 3.8 Magnesium 2.5 H Blood Type Antibody Screen Crossmatch 03/31/19 21:41 WBC RBC Hgb Hct MCV MCH MCHC RDW Plt Count MPV Absolute Neuts (auto) Neutrophils % Lymphocytes % Monocytes % Eosinophils % Basophils % Nucleated RBC % PT with INR INR PTT (Actin FS) Sodium Potassium Chloride Carbon Dioxide Anion Gap BUN Creatinine Est GFR (CKD-EPI)AfAm Est GFR (CKD-EPI)NonAf POC Glucometer 88 Random Glucose Lactic Acid Calcium Phosphorus Magnesium Blood Type Antibody Screen Crossmatch Active Medications Generic Name Dose Route Start Last Admin Trade Name Freq PRN Reason Stop Dose Admin Diltiazem HCl 30 mg 03/31/19 09:15 04/01/19 02:56 Cardizem - NR 30 mg Q6H [facility] Administration Piperacillin Sod/Tazobactam 50 mls @ 100 mls/hr 04/01/19 02:00 04/01/19 01:41 Sod 3.375 gm/ Dextrose IVPB 04/01/19 18:29 100 mls/hr Q8H-IV [facility] Administration Protocol Piperacillin Sod/Tazobactam 50 mls @ 100 mls/hr 04/02/19 02:00 Sod 3.375 gm/ Dextrose IVPB Q8H-IV [facility] Protocol Lisinopril 5 mg 03/31/19 10:00 03/31/19 09:30 Prinivil PEG 5 mg DAILY [facility] Administration Metoprolol Tartrate 50 mg 03/31/19 06:00 04/01/19 06:12 Lopressor - PEG 50 mg Q6HPO [facility] Administration Mupirocin 1 applic 03/31/19 22:00 03/31/19 21:55 Bactroban Ointment (For Decolonization) - NS 04/05/19 21:59 1 applic BID [facility] Administration ASSESSMENT/PLAN: 83 y/o/m from [facility] with PMHx of CABG, HTN, HLD, ESRD s/p Nephrostomy Tubes, COPD s/p Trach/Vent Dependent, Pneumonia, PEG Placement, DM, Anemia presenting for coffee ground emesis from [facility]. Patient to be admitted for UTI, pulmonary infiltrates, GI bleed. #Neuro - alert, tracks movement, able to shake and nod head in answer to questions - Continue home medications as per primary team #Cardiac - Hx of CABG, HTN, HLD - Chest CT showing 4.6 aneurysm of the ascending aorta, 5.0 infrarenal AAA s/p aortoiliac stent graft. Can monitor for signs of enlargement - As per Cardio: No intervention for TAA 4.6cm. BP control and beta filippo - Heart rate control with home meds, Lopressor 50mg Q6hr, Diltiazem 30mg Q6hr #Pulm - hx COPD s/p tracheostomy placement. On vent - Consider ABGs as needed to adjust vent settings appropriately - pleural effusions seen on Chest CT - maintain SpO2 >90% #GI - patient with multiple episodes of coffee ground emesis in [place] as per [place] staff - Stool for occult blood test negative - monitor H&H with serial CBCs - H&H - 9.3/28.2, goal Hgb of 8 - Transfused 2 units PRBCs - As per GI - No urgency for endoscopy in absence of overt or ongoing GI bleed and considering pts age/comorbidities risks/benefits need to be carefully weighed. Spoke with pts son and discussed risks/benefits of endoscopy, states he would be agreeable to endoscopy if needed to exclude a source of bleeding. - RUQ U/S showing biliary sludge with small calculi, moderate ascites, hepatomegaly, possible right nephrolithiasis w/no evidence of hydronephrosis #ID - UA positive for UTI - Zosyn 3.375 IV Q8hr - Lactic Acid at 2.1 on admission, now normalized - WBC at 12.2, afebrile. monitor - ID on board, recs appreciated #Endo - Hx of DM - BGMs - ISS #Renal - hx of ESRD s/p nephrostomy tubes - BUN/Cr 40.8/1.0 - monitor urine output, BUN/Cr #Prophylaxis - hold chemical AC due to concern for GI bleed #FEN - hold IVF due to volume overloaded status - NPO for now, clear with GI before starting feeds #Disposition - Stable for monitoring on vent floor - Patient is DNR, MOLST form in chart Visit type - Emergency Visit Emergency Visit: Yes ED Registration Date: 03/31/19 Care time: The patient presented to the Emergency Department on the above date and was hospitalized for further evaluation of their emergent condition. - New Patient This patient is new to me today: No - Critical Care Critical Care patient: Yes Total Critical Care Time (in minutes): 36 Critical Care Statement: The care of this patient involved high complexity decision making to prevent further life threatening deterioration of the patient's condition and/or to evaluate & treat vital organ system(s) failure or risk of failure. ATTENDING PHYSICIAN STATEMENT I saw and evaluated the patient. I reviewed the resident's note and discussed the case with the resident. I agree with the resident's findings and plan as documented. SUBJECTIVE: OBJECTIVE: ASSESSMENT AND PLAN:
[2019-04-01 07:43] LABS: BASO % 0.5 % (0-2.0); EOS % 1.6 % (0-4.5); HEMATOCRIT 28.2 % (35.4-49); HEMOGLOBIN 9.3 GM/dL (11.7-16.9); LYMPH % 3.8 % (8-40); MCH 31.9 pg (25.7-33.7); MEAN CELL VOLUME 96.8 fl (80-96); MEAN PLT VOLUME 8.6 fl (7.5-11.1); MONO % 6.1 % (3.8-10.2); PLATELET COUNT 219 K/MM3 (134-434); RBC 2.91 M/mm3 (4.00-5.60); RDW 22.2 % (11.9-15.9); WHITE BLOOD COUNT 12.2 K/mm3 (4.0-10.0)
[2019-04-01 08:15] LABS: IRON SERUM 35 ug/dL (50-175); TOTAL IRON BINDING CAPACITY 184 ug/dL (250-450)
[2019-04-01 08:31] LABS: ALBUMIN 1.7 g/dl (3.4-5.0); BILIRUBIN,TOTAL 1.2 mg/dL (0.2-1); BLOOD UREA NITROGEN 40.8 mg/dL (7-18); CALCIUM 8.2 mg/dL (8.5-10.1); POTASSIUM 4.1 mmol/L (3.5-5.1); TOT PROT 7.3 g/dl (6.4-8.2)
--- NOTE | 2019-04-01 09:57 | PN ---
Progress Note, Physician Chief Complaint: EVENTS AND NOTES REVIEWED PATIENT IN ICU VENTED AWAKE - Current Medication List Current Medications: Active Medications Diltiazem HCl (Cardizem -) 30 mg NR Q6H [facility] Last Admin: 04/01/19 09:26 Dose: 30 mg Piperacillin Sod/Tazobactam (Sod 3.375 gm/ Dextrose) 50 mls @ 100 mls/hr IVPB Q8H-IV [facility]; Protocol Lisinopril (Prinivil) 5 mg PEG DAILY [facility] Last Admin: 03/31/19 09:30 Dose: 5 mg Metoprolol Tartrate (Lopressor -) 50 mg PEG Q6HPO [facility] Last Admin: 04/01/19 06:12 Dose: 50 mg Mupirocin (Bactroban Ointment (For Decolonization) -) 1 applic NS BID [facility] Stop: 04/05/19 21:59 Last Admin: 03/31/19 21:55 Dose: 1 applic - Objective Vital Signs: Vital Signs Temperature 98.2 F 04/01/19 07:00 Pulse Rate 90 04/01/19 09:00 Respiratory Rate 16 04/01/19 09:00 Blood Pressure 136/82 04/01/19 09:00 O2 Sat by Pulse Oximetry (%) 100 04/01/19 09:00 Constitutional: Yes: Mild Distress Cardiovascular: Yes: Pulse Irregular Respiratory: Yes: Mechanically Ventilated Gastrointestinal: Yes: Soft Genitourinary: Yes: Incontinence Musculoskeletal: Yes: Muscle Weakness Neurological: Yes: Pre-Existing Deficit Labs: CBC, BMP 04/01/19 07:20 04/01/19 07:20 INR, PTT INR 1.49 (0.83-1.09) H 03/31/19 08:50 Problem List - Problems (1) Acute and chronic respiratory failure Code(s): J96.20 - ACUTE AND CHR RESP FAILURE, UNSP W HYPOXIA OR HYPERCAPNIA (2) Anemia Code(s): D64.9 - ANEMIA, UNSPECIFIED (3) COPD (chronic obstructive pulmonary disease) Code(s): J44.9 - CHRONIC OBSTRUCTIVE PULMONARY DISEASE, UNSPECIFIED (4) Coffee ground emesis Code(s): K92.0 - HEMATEMESIS (5) Diabetes mellitus Code(s): E11.9 - TYPE 2 DIABETES MELLITUS WITHOUT COMPLICATIONS (6) ESRD (end stage renal disease) Code(s): N18.6 - END STAGE RENAL DISEASE (7) GI bleed Code(s): K92.2 - GASTROINTESTINAL HEMORRHAGE, UNSPECIFIED (8) HLD (hyperlipidemia) Code(s): E78.5 - HYPERLIPIDEMIA, UNSPECIFIED (9) HTN (hypertension) Code(s): I10 - ESSENTIAL (PRIMARY) HYPERTENSION (10) Sepsis Code(s): A41.9 - SEPSIS, UNSPECIFIED ORGANISM (11) Status post tracheostomy Code(s): Z93.0 - TRACHEOSTOMY STATUS Assessment/Plan VENT SUPPORT IN ICU PULM/CARDIO EVAL APPRECIATED PROTONIX IV GI EVAL APPRECIATED MONITOR LABS/H/H TRANSFUSE PRBC NEEDED DVT VENODYNES IV ABX CHECK CULTURES
[2019-04-01] MEDS ORDERED: PT OWN MED DRAWER 7, Y5N ONE (11:02)
[2019-04-01] MEDS: MUPIROCIN 2% TOPICAL OINTMENT FOR DECOLONIZATION NS SCH ×2 (11:03→21:28)
[2019-04-01] MEDS: LISINOPRIL 5 MG TABLET (FP) PEG SCH (11:03)
--- NOTE | 2019-04-01 11:29 | PN ---
Teaching Attending Note Name of Resident: Sabrina Schultz ATTENDING PHYSICIAN STATEMENT I saw and evaluated the patient. I reviewed the resident's note and discussed the case with the resident. I agree with the resident's findings and plan as documented. SUBJECTIVE: Pt seen and examined in the ICU. Vented, awake. Heart rates improved. OBJECTIVE: Vital Signs Period Temp Pulse Resp BP Sys/Kang Pulse Ox Last 24 Hr 98.1 F-98.4 F 89-139 10-24 111-137/63-83 100-100 Intake & Output 03/29/19 03/30/19 03/31/19 04/01/19 23:59 23:59 23:59 23:59 Intake Total 700 50 Output Total 750 100 Balance -50 -50 Weight 79.379 kg 79.379 kg 105.404 kg Gen: vented, awake Heart: RRR Lung: decreased breath sounds at the bases Abd: soft, nontender Ext: + edema CBC, BMP 04/01/19 07:20 04/01/19 07:20 Active Medications Diltiazem HCl (Cardizem -) 30 mg NR Q6H [facility] Last Admin: 04/01/19 09:26 Dose: 30 mg Piperacillin Sod/Tazobactam (Sod 3.375 gm/ Dextrose) 50 mls @ 100 mls/hr IVPB Q8H-IV [facility]; Protocol Lisinopril (Prinivil) 5 mg PEG DAILY [facility] Last Admin: 04/01/19 11:03 Dose: 5 mg Metoprolol Tartrate (Lopressor -) 50 mg PEG Q6HPO [facility] Last Admin: 04/01/19 06:12 Dose: 50 mg Mupirocin (Bactroban Ointment (For Decolonization) -) 1 applic NS BID [facility] Stop: 04/05/19 21:59 Last Admin: 04/01/19 11:03 Dose: 1 applic ASSESSMENT AND PLAN: Chronic Respiratory Failure r/o UTI/Pneumonia/Sepsis Lactic Acidosis Atrial Flutter with RVR r/o GI Bleed Anemia CAD s/p CABG COPD HTN Hyperlipidemia - continue antibiotics - f/u cultures - protonix - monitor H/H - rate control - holding anticoagulation - holding feeds - GI f/u - heart rates improved, can monitor on vent floor
--- NOTE | 2019-04-01 15:04 | PN ---
Progress Note, Physician Chief Complaint: Vent/trach Aflutter rate controlled on tele History of Present Illness: 83 year old male with a pmhx of prostate CA s/p radiation, CAD s/p CABG 05/2018, dm, htn, esrd, copd, and s/p Trach/vent/peg sent from assisted for coffee ground emesis. Patient cannot give history. Hgb 7.3 EKG: atach/flutter with VR 136bpm, NIVCD CT chest/abd/pelvis: Bilateral pleural effusions, consolidation, moderate to large ascites - Current Medication List Current Medications: Active Medications Diltiazem HCl (Cardizem -) 30 mg NR Q6H [facility] Last Admin: 04/01/19 09:26 Dose: 30 mg Piperacillin Sod/Tazobactam (Sod 3.375 gm/ Dextrose) 50 mls @ 100 mls/hr IVPB Q8H-IV [facility]; Protocol Lisinopril (Prinivil) 5 mg PEG DAILY [facility] Last Admin: 04/01/19 11:03 Dose: 5 mg Metoprolol Tartrate (Lopressor -) 50 mg PEG Q6HPO [facility] Last Admin: 04/01/19 12:23 Dose: 50 mg Mupirocin (Bactroban Ointment (For Decolonization) -) 1 applic NS BID [facility] Stop: 04/05/19 21:59 Last Admin: 04/01/19 11:03 Dose: 1 applic - Objective Vital Signs: Vital Signs Temperature 98.0 F 04/01/19 14:00 Pulse Rate 92 H 04/01/19 14:00 Respiratory Rate 32 H 04/01/19 14:00 Blood Pressure 121/76 04/01/19 14:00 O2 Sat by Pulse Oximetry (%) 100 04/01/19 09:00 Neck: Yes: Supple Cardiovascular: Yes: Regular Rate and Rhythm, S1, S2 Respiratory: Yes: Diminished Gastrointestinal: Yes: Soft Edema: LLE: 1+, RLE: 1+ Labs: CBC, BMP 04/01/19 07:20 04/01/19 07:20 INR, PTT INR 1.49 (0.83-1.09) H 03/31/19 08:50 Assessment/Plan 83 year old male with a pmhx of prostate CA s/p radiation, CAD s/p CABG 05/2018, dm, htn, esrd, copd, and s/p Trach/vent/peg sent from assisted for coffee ground emesis. Patient cannot give history. Hgb 7.3 WBC 12 EKG: atach/flutter with VR 136bpm, NIVCD CT chest/abd/pelvis: Bilateral pleural effusions, consolidation, moderate to large ascites 4.6cm Throacic anuerysm 1) CV -No intervention for TAA 4.6cm. BP control and beta filippo -Abx as per primary team. HR is well controlled on home diltiazem and metoprolol F/u GI regarding anemia and any GI work up indicated. As per chart arrhythmia occured in past but patient not on AC. Would not start AC yet, but if no contraindication found by primary team and as per GI in the future than consider AC in future. Will sign off at this time.
[2019-04-01] MEDS ORDERED: PHYTONADIONE 10 MG/1 ML AMP SQ ONE (16:03)
--- NOTE | 2019-04-01 17:03 | PN.GI ---
GI Progress Note Subjective: No overt bleeding since admission No acute events heart rate improved Abdominal US revealed moderate ascites 2 U PRBC transfused - Objective Vital Signs: Vital Signs Temperature 98.0 F 04/01/19 14:00 Pulse Rate 92 H 04/01/19 14:00 Respiratory Rate 19 04/01/19 16:29 Blood Pressure 121/76 04/01/19 14:00 O2 Sat by Pulse Oximetry (%) 100 04/01/19 09:00 Constitutional: Calm Eyes: No: Sclera Icterus Cardiovascular: Yes: Pulse Irregular Respiratory: Yes: Diminished (at bases bilaterally) Gastrointestinal Inspection: Yes: Scars (mid upper abdominal surgical scar), Other (G-tube in place in LUQ with some excoriated skin on the caudad border of the external bolster.). No: Distention ...Auscultate: Yes: Normoactive Bowel Sounds ...Palpate: Yes: Soft. No: Tenderness (No grimacing upon palpation) ...Percussion: No: Tympanitic Edema: Yes Edema: LLE: 2+, RLE: 2+ Neurological: Yes: Alert Labs: CBC, BMP 04/01/19 07:20 04/01/19 07:20 INR, PTT INR 1.49 (0.83-1.09) H 03/31/19 08:50 Problem List - Problems (1) Coffee ground emesis Assessment/Plan: No further vomiting. No melena or gross rectal bleeding Had long discussion w/ his daughter this evening via telephone. Explained that while there could have been other causes of the coffee ground vomiting and anemia including infection / sepsis , we Discussed upper endoscopy to evaluate for potential upper GI source, prior to anticoagulation being initiated. We discussed potential risks of the procedure like but not limited to bleeding, perforation requiring surgery to repair, infection, sedation medication effects all of which could be potentially life threatening. She went on to explain that just prior to CABG, in 05/09, he had GI work-up to evaluate for bleeding. This included EGD and colonoscopy. She stated that she would discuss things with her brother and come to a decision regarding this. For now: Protonix 40mg IVPB daily ordered Monitor for overt bleeding Resume tube feeds per primary team Macrocytosis: no prexisting liver disease. Consider hematology evaluation Consider IR guided diagnostic paracentesis with fluid sent for cell count with diff, culture, cytology, albumin, total protein. Would need hepatic panel drawn same day as paracentesis Vitamin K 10mg SC x 1 ordered Will await decision regarding EGD Code(s): K92.0 - HEMATEMESIS
[2019-04-01] MEDS ORDERED: PIPERACILLIN/TAZOB 3.375 GM 3.375 GM in DEXTROSE 5%-WATER - 50 ML IVPB ONE (17:55)
[2019-04-01] MEDS ORDERED: DEXTROSE 5%-WATER - 100 ML IVPB ONE (18:00)
[2019-04-01] MEDS ORDERED: DEXTROSE 50%-WATER - 25 GM/50 ML VIAL IVPUSH ONE (21:28)
[2019-04-02] MEDS: METOPROLOL TARTRATE 50 MG TABLET (FP) PEG SCH ×6 (01:04→23:59)
[2019-04-02] MEDS ORDERED: DEXTROSE 5%-WATER - 50 ML IVPB ONE ×2 (01:13→10:34)
[2019-04-02] MEDS ORDERED: PIPERACILLIN/TAZOBACTAM 3.375 GM VIAL IVPB ONE ×2 (01:13→10:33)
[2019-04-02] MEDS: PIPERACILLIN/TAZOB 3.375 GM 3.375 GM in DEXTROSE 5%-WATER - 50 ML IVPB SCH ×2 (01:26→10:49)
[2019-04-02] MEDS ORDERED: DEXTROSE 50%-WATER - 25 GM/50 ML VIAL IVPUSH ONE (02:21)
[2019-04-02] MEDS ORDERED: SODIUM CHLORIDE FOR INHALATION 3 ML VIAL.NEB IH PRN (02:23)
[2019-04-02] MEDS ORDERED: DEXTROSE 50%-WATER - 25 GM/50 ML VIAL ONE (02:50)
[2019-04-02] MEDS: dilTIAZem HCL 30 MG TABLET (FP) NR SCH ×3 (06:48→17:41)
[2019-04-02 08:53] LABS: HEMATOCRIT 30.2 % (35.4-49); HEMOGLOBIN 9.8 GM/dL (11.7-16.9); MCHC 32.4 g/dl (32.0-35.9); MEAN CELL VOLUME 95.8 fl (80-96); MEAN PLT VOLUME 8.4 fl (7.5-11.1); PLATELET COUNT 230 K/MM3 (134-434); RBC 3.16 M/mm3 (4.00-5.60); RDW 21.9 % (11.9-15.9); WHITE BLOOD COUNT 13.4 K/mm3 (4.0-10.0)
[2019-04-02 09:13] LABS: ALBUMIN 1.8 g/dl (3.4-5.0); BLOOD UREA NITROGEN 36.5 mg/dL (7-18); MAGNESIUM 2.4 mg/dL (1.8-2.4); POTASSIUM 3.6 mmol/L (3.5-5.1); TOT PROT 7.2 g/dl (6.4-8.2)
[2019-04-02] MEDS ORDERED: PIPERACILLIN/TAZOB 3.375 GM 3.375 GM in DEXTROSE 5%-WATER - 50 ML IVPB SCH (10:00)
[2019-04-02] MEDS: LISINOPRIL 5 MG TABLET (FP) PEG SCH (10:48)
[2019-04-02] MEDS ORDERED: PT OWN MED DRAWER 7, Y5N ONE (12:01)
--- NOTE | 2019-04-02 12:19 | PN ---
Progress Note, Physician History of Present Illness: pulmonary awake alert on vent support,ac mode,-resp distress - Current Medication List Current Medications: Active Medications Diltiazem HCl (Cardizem -) 30 mg NR Q6HPO [facility] Last Admin: 04/02/19 12:14 Dose: 30 mg Piperacillin Sod/Tazobactam (Sod 3.375 gm/ Dextrose) 50 mls @ 100 mls/hr IVPB Q8H-IV [facility]; Protocol Last Admin: 04/02/19 10:49 Dose: 100 mls/hr Lisinopril (Prinivil) 5 mg PEG DAILY [facility] Last Admin: 04/02/19 10:48 Dose: 5 mg Metoprolol Tartrate (Lopressor -) 50 mg PEG Q6HPO [facility] Last Admin: 04/02/19 12:13 Dose: 50 mg Sodium Chloride (Normal Saline For Inhalation -) 3 ml IH Q6H PRN PRN Reason: COUGH - Objective Vital Signs: Vital Signs Temperature 98.3 F 04/02/19 10:43 Pulse Rate 92 H 04/02/19 10:43 Respiratory Rate 22 H 04/02/19 10:43 Blood Pressure 148/89 04/02/19 10:43 O2 Sat by Pulse Oximetry (%) 100 04/01/19 19:57 Constitutional: Yes: Well Nourished, Calm Eyes: Yes: WNL HENT: Yes: WNL Neck: Yes: WNL Cardiovascular: Yes: Pulse Irregular, S1, S2 Respiratory: Yes: Diminished Gastrointestinal: Yes: Normal Bowel Sounds, Abdomen, Obese, Ascites Extremities: Yes: WNL Edema: Yes Labs: CBC, BMP 04/02/19 08:05 04/02/19 08:05 INR, PTT INR 1.49 (0.83-1.09) H 03/31/19 08:50 Assessment/Plan ASSESSMENT AND PLAN: Chronic Respiratory Failure r/o UTI/Pneumonia/Sepsis Lactic Acidosis Atrial Flutter with RVR r/o GI Bleed Anemia CAD s/p CABG COPD HTN Hyperlipidemia Ascites - antibiotics - normal tranfusion threshold - protonix - monitor H/H - rate control - hold anticoagulation - IVF - paracentesis DR MENA
--- NOTE | 2019-04-02 12:36 | PN ---
Progress Note, Physician Chief Complaint: patient seen and examined - Current Medication List Current Medications: Active Medications Diltiazem HCl (Cardizem -) 30 mg NR Q6HPO [facility] Last Admin: 04/02/19 12:14 Dose: 30 mg Piperacillin Sod/Tazobactam (Sod 3.375 gm/ Dextrose) 50 mls @ 100 mls/hr IVPB Q8H-IV [facility]; Protocol Last Admin: 04/02/19 10:49 Dose: 100 mls/hr Lisinopril (Prinivil) 5 mg PEG DAILY [facility] Last Admin: 04/02/19 10:48 Dose: 5 mg Metoprolol Tartrate (Lopressor -) 50 mg PEG Q6HPO [facility] Last Admin: 04/02/19 12:13 Dose: 50 mg Sodium Chloride (Normal Saline For Inhalation -) 3 ml IH Q6H PRN PRN Reason: COUGH - Objective Vital Signs: Vital Signs Temperature 98.3 F 04/02/19 10:43 Pulse Rate 92 H 04/02/19 10:43 Respiratory Rate 22 H 04/02/19 10:43 Blood Pressure 148/89 04/02/19 10:43 O2 Sat by Pulse Oximetry (%) 100 04/01/19 19:57 Labs: CBC, BMP 04/02/19 08:05 04/02/19 08:05 INR, PTT INR 1.49 (0.83-1.09) H 03/31/19 08:50
--- NOTE | 2019-04-02 12:41 | PN ---
Progress Note, Physician Chief Complaint: patinent seen and examined - Current Medication List Current Medications: Active Medications Diltiazem HCl (Cardizem -) 30 mg NR Q6HPO [facility] Last Admin: 04/02/19 12:14 Dose: 30 mg Piperacillin Sod/Tazobactam (Sod 3.375 gm/ Dextrose) 50 mls @ 100 mls/hr IVPB Q8H-IV [facility]; Protocol Last Admin: 04/02/19 10:49 Dose: 100 mls/hr Lisinopril (Prinivil) 5 mg PEG DAILY [facility] Last Admin: 04/02/19 10:48 Dose: 5 mg Metoprolol Tartrate (Lopressor -) 50 mg PEG Q6HPO [facility] Last Admin: 04/02/19 12:13 Dose: 50 mg Sodium Chloride (Normal Saline For Inhalation -) 3 ml IH Q6H PRN PRN Reason: COUGH - Objective Vital Signs: Vital Signs Temperature 98.3 F 04/02/19 10:43 Pulse Rate 92 H 04/02/19 10:43 Respiratory Rate 22 H 04/02/19 10:43 Blood Pressure 148/89 04/02/19 10:43 O2 Sat by Pulse Oximetry (%) 100 04/01/19 19:57 Constitutional: Yes: Calm Neck: Yes: Other (trach) Cardiovascular: Yes: Regular Rate and Rhythm, S1, S2 Respiratory: Yes: Mechanically Ventilated Gastrointestinal: Yes: Normal Bowel Sounds, Soft Genitourinary: Yes: Other (nephrostomy tube) Labs: CBC, BMP 04/02/19 08:05 04/02/19 08:05 INR, PTT INR 1.49 (0.83-1.09) H 03/31/19 08:50 Problem List - Problems (1) Acute and chronic respiratory failure Assessment/Plan: iv abx pleural effusion and bibasilar consolidatin on chest CT Code(s): J96.20 - ACUTE AND CHR RESP FAILURE, UNSP W HYPOXIA OR HYPERCAPNIA (2) UTI (urinary tract infection) Assessment/Plan: Microbiology 03/31/19 02:17 Urine - Urine Nephrostomy Tube Left Urine Culture - Preliminary Klebsiella Pneumoniae - Esbl ID eval contact isolation Code(s): N39.0 - URINARY TRACT INFECTION, SITE NOT SPECIFIED (3) Ascites Assessment/Plan: to get paracentesis and send fluid for cytology and LDh, fluid analysis also vitamin K ordered repeat coags Code(s): R18.8 - OTHER ASCITES (4) Atrial flutter Assessment/Plan: control on metoprolol and diltiazem Code(s): I48.92 - UNSPECIFIED ATRIAL FLUTTER
--- NOTE | 2019-04-02 13:24 | PN ---
Progress Note (short form) - Note Progress Note: alert trach to vent tachycardia improved with transfusion Vital Signs Period Temp Pulse Resp BP Sys/Kang Pulse Ox Last 24 Hr 98 F-98.3 F 92-101 16-32 115-148/69-90 100-100 cor-rrr lungs decreased bs at bases abd soft, +ascites ext traced edema CBC, BMP 04/02/19 08:05 04/02/19 08:05 Microbiology 03/31/19 02:17 Urine - Urine Nephrostomy Tube Left Urine Culture - Preliminary Klebsiella Pneumoniae - Esbl 03/31/19 01:27 Blood - Peripheral Venous Blood Culture - Preliminary NO GROWTH OBTAINED AFTER 48 HOURS, INCUBATION TO CONTINUE FOR 3 DAYS. 03/31/19 01:27 Blood - Peripheral Venous Blood Culture - Preliminary NO GROWTH OBTAINED AFTER 48 HOURS, INCUBATION TO CONTINUE FOR 3 DAYS. has bilateral PCN tubes ct scans with ascites/anasarca/bilateral pleural effusions with consolidation/ atelectasis of the lower lobes a/p anemia ascites chronic respiratory failure doubt infection nephrostomy urine with CRE- STRICT CONTACT ISOLATION with dedicated equiment will d/c antibioitics at this time contact isolation for CRE
[2019-04-02 20:55] LABS: BF WBC & OTHER NUCLEATED CELLS 184 /mm3; BODY FLUID MACROPHAGES 66 %; BODY FLUID MESOTHELIAL 10 %
[2019-04-03] MEDS: METOPROLOL TARTRATE 50 MG TABLET (FP) PEG SCH ×4 (06:30→23:07)
[2019-04-03] MEDS: dilTIAZem HCL 30 MG TABLET (FP) NR SCH ×5 (06:31→23:07)
--- NOTE | 2019-04-03 08:57 | PN ---
Progress Note (short form) - Note Progress Note: Abdomen soft, nontender, active bowel sounds. Chemistries pending on ascitic fluid. Note albumin of 1.8 with elevated globulins; also 2+ proteinuria, macrocytic anemia -> raise suspicion of hematologic malignancy. SPEP and serum VIGNESH ordered.
[2019-04-03] MEDS: LISINOPRIL 5 MG TABLET (FP) PEG SCH (11:01)
[2019-04-03] MEDS ORDERED: DEXTROSE 50%-WATER - 25 GM/50 ML VIAL IVPUSH ONE ×2 (12:12→18:32)
--- NOTE | 2019-04-03 12:32 | PN ---
Progress Note, Physician - Current Medication List Current Medications: Active Medications Dextrose (D50w (Vial) -) 25 gm IVPUSH NOW ONE Stop: 04/03/19 12:13 Diltiazem HCl (Cardizem -) 30 mg NR Q6HPO [facility] Last Admin: 04/03/19 06:31 Dose: 30 mg Lisinopril (Prinivil) 5 mg PEG DAILY [facility] Last Admin: 04/03/19 11:01 Dose: 5 mg Metoprolol Tartrate (Lopressor -) 50 mg PEG Q6HPO [facility] Last Admin: 04/03/19 11:01 Dose: 50 mg Sodium Chloride (Normal Saline For Inhalation -) 3 ml IH Q6H PRN PRN Reason: COUGH - Objective Vital Signs: Vital Signs Temperature 97.7 F 04/03/19 05:00 Pulse Rate 90 04/03/19 08:09 Respiratory Rate 25 H 04/03/19 11:48 Blood Pressure 132/78 04/03/19 05:00 O2 Sat by Pulse Oximetry (%) 99 04/03/19 08:09 Cardiovascular: Yes: S1, S2 Respiratory: Yes: Mechanically Ventilated Gastrointestinal: Yes: Normal Bowel Sounds, Soft Labs: CBC, BMP 04/02/19 08:05 04/02/19 08:05 INR, PTT INR 1.49 (0.83-1.09) H 03/31/19 08:50 Problem List - Problems (1) Ascites Assessment/Plan: paracentesis GI Noted Chemistries pending on ascitic fluid. Note albumin of 1.8 with elevated globulins; also 2+ proteinuria, macrocytic anemia -> raise suspicion of hematologic malignancy. SPEP and serum VIGNESH ordered. Code(s): R18.8 - OTHER ASCITES (2) Anemia Assessment/Plan: -Gi consult noted -Hem consult Code(s): D64.9 - ANEMIA, UNSPECIFIED (3) Sepsis Assessment/Plan: 03/31/19 02:17 Urine - Urine Nephrostomy Tube Left Urine Culture - Preliminary Klebsiella Pneumoniae - Esbl ID eval noted--Off Abx contact isolation Code(s): A41.9 - SEPSIS, UNSPECIFIED ORGANISM (4) Acute and chronic respiratory failure Assessment/Plan: off iv abx per id pleural effusion and bibasilar consolidatin on chest CT pulm on case Code(s): J96.20 - ACUTE AND CHR RESP FAILURE, UNSP W HYPOXIA OR HYPERCAPNIA (5) COPD (chronic obstructive pulmonary disease) Code(s): J44.9 - CHRONIC OBSTRUCTIVE PULMONARY DISEASE, UNSPECIFIED (6) Diabetes mellitus Code(s): E11.9 - TYPE 2 DIABETES MELLITUS WITHOUT COMPLICATIONS (7) HTN (hypertension) Assessment/Plan: Vital Signs Period Temp Pulse Resp BP Sys/Kang Pulse Ox Last 24 Hr 97.7 F-98.2 F 90-95 20-26 130-140/78-81 99-100 Code(s): I10 - ESSENTIAL (PRIMARY) HYPERTENSION (8) Atrial flutter Assessment/Plan: control on metoprolol and diltiazem Code(s): I48.92 - UNSPECIFIED ATRIAL FLUTTER
--- NOTE | 2019-04-03 12:38 | PN ---
Progress Note, Physician History of Present Illness: pulmonary awake,alert,on vent support ac mode,-resp distress - Current Medication List Current Medications: Active Medications Dextrose (D50w (Vial) -) 25 gm IVPUSH NOW ONE Stop: 04/03/19 12:13 Diltiazem HCl (Cardizem -) 30 mg NR Q6HPO [facility] Lisinopril (Prinivil) 5 mg PEG DAILY [facility] Last Admin: 04/03/19 11:01 Dose: 5 mg Metoprolol Tartrate (Lopressor -) 50 mg PEG Q6HPO [facility] Last Admin: 04/03/19 11:01 Dose: 50 mg Sodium Chloride (Normal Saline For Inhalation -) 3 ml IH Q6H PRN PRN Reason: COUGH - Objective Vital Signs: Vital Signs Temperature 97.7 F 04/03/19 05:00 Pulse Rate 90 04/03/19 08:09 Respiratory Rate 25 H 04/03/19 11:48 Blood Pressure 132/78 04/03/19 05:00 O2 Sat by Pulse Oximetry (%) 99 04/03/19 08:09 Constitutional: Yes: Well Nourished, Calm Eyes: Yes: WNL HENT: Yes: WNL Neck: Yes: WNL (trach) Cardiovascular: Yes: Pulse Irregular, S1, S2 Respiratory: Yes: Diminished Gastrointestinal: Yes: Soft, Abdomen, Obese Extremities: Yes: WNL Edema: No Labs: Problem List - Problems (1) Acute and chronic respiratory failure Code(s): J96.20 - ACUTE AND CHR RESP FAILURE, UNSP W HYPOXIA OR HYPERCAPNIA (2) Anemia Code(s): D64.9 - ANEMIA, UNSPECIFIED (3) Ascites Code(s): R18.8 - OTHER ASCITES (4) Atrial flutter Code(s): I48.92 - UNSPECIFIED ATRIAL FLUTTER (5) COPD (chronic obstructive pulmonary disease) Code(s): J44.9 - CHRONIC OBSTRUCTIVE PULMONARY DISEASE, UNSPECIFIED (6) GI bleed Code(s): K92.2 - GASTROINTESTINAL HEMORRHAGE, UNSPECIFIED (7) HLD (hyperlipidemia) Code(s): E78.5 - HYPERLIPIDEMIA, UNSPECIFIED (8) HTN (hypertension) Code(s): I10 - ESSENTIAL (PRIMARY) HYPERTENSION (9) Status post tracheostomy Code(s): Z93.0 - TRACHEOSTOMY STATUS Assessment/Plan ASSESSMENT AND PLAN: Chronic Respiratory Failure r/o UTI/Pneumonia/Sepsis Lactic Acidosis Atrial Flutter with RVR r/o GI Bleed Anemia CAD s/p CABG COPD HTN Hyperlipidemia Ascites - antibiotics - normal tranfusion threshold - protonix - monitor H/H - rate control - hold anticoagulation - IVF DR MENA
[2019-04-03] MEDS ORDERED: DEXTROSE 50%-WATER - 25 GM/50 ML VIAL ONE (12:45)
--- NOTE | 2019-04-03 16:56 | CONSULT ---
Consult Consult Specialty:: Hematology Reason for Consultation:: R/O Hematologic Malignancy - History of Present Illness History of Present Illness: 83 year old gentleman with a pmhx of prostate CA s/p radiation, CAD s/p CABG 2018, dm, htn, esrd, copd, and s/p Trach/vent/peg sent from alf for coffee ground emesis. Patient unable to provide medical history. Hematology was consulted for possible hematologic malignancies - History Source History Provided By: Medical Record Limitations to Obtaining History: Clinical Condition - Past Medical History Cardio/Vascular: Yes: Aneurysm, CAD, HTN, Hyperlipdemia Pulmonary: Yes: COPD, Pneumonia, Other (trach/vent dependent) Renal/: Yes: Renal Failure Endocrine: Yes: Diabetes Mellitus - Past Surgical History Past Surgical History: Yes: AAA Repair, CABG - Alcohol/Substance Use Hx Alcohol Use: No History of Substance Use: reports: None - Smoking History Smoking history: Unknown if ever smoked Have you smoked in the past 12 months: No - Social History ADL: Support Services History of Recent Travel: No Home Medications - Allergies Allergies/Adverse Reactions: Allergies Allergy/AdvReac Type Severity Reaction Status Date / Time chlorhexidine Allergy Verified 03/30/19 21:38 - Home Medications Home Medications: Ambulatory Orders Acetaminophen 325 mg PO BID 03/31/19 Cyanocobalamin Vit B-12 Inj. [Redisol] 1,000 mcg IM DAILY 03/31/19 Diltiazem [Cardizem -] 30 mg PO QID 03/31/19 Escitalopram Oxalate [Lexapro -] 20 mg PO ONCE 03/31/19 Ferrous Sulfate [Feosol] 300 mg GT ONCE 03/31/19 Finasteride 5 mg PO DAILY 03/31/19 Insulin Lispro [Humalog] 100 unit SQ DAILY 03/31/19 Latanoprost/Pf [Latanoprost 0.005% Eye Drop] 7.5 ml OP ONCE 03/31/19 Lisinopril 5 mg PO ONCE 03/31/19 Metoprolol Tartrate 50 mg PO Q6H 03/31/19 Risperidone 0.5 mg PO TID 03/31/19 Physical Exam Vital Signs: Vital Signs Temperature 98.2 F 04/03/19 15:28 Pulse Rate 92 H 04/03/19 12:50 Respiratory Rate 24 H 04/03/19 12:50 Blood Pressure 160/80 04/03/19 12:50 O2 Sat by Pulse Oximetry (%) 100 04/03/19 09:00 Constitutional: Yes: No Distress Eyes: Yes: WNL, Conjunctiva Clear HENT: Yes: WNL Neck: Yes: WNL Cardiovascular: Yes: WNL Respiratory: Yes: WNL Gastrointestinal: Yes: Normal Bowel Sounds Integumentary: Yes: WNL, Bruising Neurological: Yes: Alert Labs: CBC, BMP 04/02/19 08:05 04/02/19 08:05 Assessment/Plan 83 y/o gentleman with a pmhx of prostate CA s/p radiation, CAD s/p CABG 05/2018, dm, htn, esrd, copd, and s/p Trach/vent/peg sent from alf for coffee ground emesis. Patient unable to provide history. Team suspicious for hematologic malignancies Recommend: 1) SPEP/UPEP ordered by team. Consider adding FLC , Beta 2 microglobulin 2) Given several red blood cell transfusions unlikely that lab determinations will be accurate now, but in the future VitB12, MMA, Folic Acid, Iron profile should be determined as well 3) May consider bone marrow examination in the future if no vitamin deficits are present 4) Thank you for this consult
[2019-04-04] MEDS: dilTIAZem HCL 30 MG TABLET (FP) NR SCH ×4 (07:06→23:11)
[2019-04-04] MEDS: METOPROLOL TARTRATE 50 MG TABLET (FP) PEG SCH ×4 (07:06→23:11)
[2019-04-04] MEDS ORDERED: PT OWN MED DRAWER 7, Y5N ONE (10:02)
[2019-04-04] MEDS: LISINOPRIL 5 MG TABLET (FP) PEG SCH (10:45)
--- NOTE | 2019-04-04 11:01 | PN ---
Progress Note, Physician - Current Medication List Current Medications: Active Medications Diltiazem HCl (Cardizem -) 30 mg NR Q6HPO [facility] Last Admin: 04/04/19 07:06 Dose: 30 mg Lisinopril (Prinivil) 5 mg PEG DAILY [facility] Last Admin: 04/04/19 10:45 Dose: 5 mg Metoprolol Tartrate (Lopressor -) 50 mg PEG Q6HPO [facility] Last Admin: 04/04/19 07:06 Dose: 50 mg Sodium Chloride (Normal Saline For Inhalation -) 3 ml IH Q6H PRN PRN Reason: COUGH - Objective Vital Signs: Vital Signs Temperature 97.5 F L 04/03/19 23:15 Pulse Rate 78 04/04/19 08:05 Respiratory Rate 18 04/04/19 08:05 Blood Pressure 160/78 04/03/19 23:15 O2 Sat by Pulse Oximetry (%) 98 04/04/19 08:05 Cardiovascular: Yes: S1, S2 Respiratory: Yes: Mechanically Ventilated Gastrointestinal: Yes: Normal Bowel Sounds, Soft Labs: CBC, BMP 04/02/19 08:05 04/02/19 08:05 INR, PTT INR 1.49 (0.83-1.09) H 03/31/19 08:50 Problem List - Problems (1) Ascites Assessment/Plan: paracentesis GI Noted Chemistries pending on ascitic fluid. Note albumin of 1.8 with elevated globulins; also 2+ proteinuria, macrocytic anemia -> raise suspicion of hematologic malignancy. SPEP and serum VIGNESH ordered. Hem noted Code(s): R18.8 - OTHER ASCITES (2) Anemia Assessment/Plan: -Gi consult noted -Hem consult Code(s): D64.9 - ANEMIA, UNSPECIFIED (3) Sepsis Assessment/Plan: 03/31/19 02:17 Urine - Urine Nephrostomy Tube Left Urine Culture - Preliminary Klebsiella Pneumoniae - Esbl ID eval noted--Off Abx contact isolation Code(s): A41.9 - SEPSIS, UNSPECIFIED ORGANISM (4) Acute and chronic respiratory failure Assessment/Plan: off iv abx per id pleural effusion and bibasilar consolidatin on chest CT pulm on case Code(s): J96.20 - ACUTE AND CHR RESP FAILURE, UNSP W HYPOXIA OR HYPERCAPNIA (5) COPD (chronic obstructive pulmonary disease) Assessment/Plan: ABOVE Code(s): J44.9 - CHRONIC OBSTRUCTIVE PULMONARY DISEASE, UNSPECIFIED (6) Diabetes mellitus Assessment/Plan: BGM Code(s): E11.9 - TYPE 2 DIABETES MELLITUS WITHOUT COMPLICATIONS (7) HTN (hypertension) Assessment/Plan: Vital Signs Period Temp Pulse Resp BP Sys/Kang Pulse Ox Last 24 Hr 97.7 F-98.2 F 90-95 20-26 130-140/78-81 99-100 Code(s): I10 - ESSENTIAL (PRIMARY) HYPERTENSION (8) Atrial flutter Assessment/Plan: controlled on metoprolol and diltiazem Code(s): I48.92 - UNSPECIFIED ATRIAL FLUTTER
--- NOTE | 2019-04-04 14:23 | PN ---
Progress Note, Physician History of Present Illness: pulmonary alert,comfortable on vent support,ac mode ,-resp distress - Current Medication List Current Medications: Active Medications Diltiazem HCl (Cardizem -) 30 mg NR Q6HPO [facility] Last Admin: 04/04/19 12:32 Dose: 30 mg Lisinopril (Prinivil) 5 mg PEG DAILY [facility] Last Admin: 04/04/19 10:45 Dose: 5 mg Metoprolol Tartrate (Lopressor -) 50 mg PEG Q6HPO [facility] Last Admin: 04/04/19 12:32 Dose: 50 mg Sodium Chloride (Normal Saline For Inhalation -) 3 ml IH Q6H PRN PRN Reason: COUGH - Objective Vital Signs: Vital Signs Temperature 97.5 F L 04/03/19 23:15 Pulse Rate 92 H 04/04/19 12:30 Respiratory Rate 26 H 04/04/19 12:30 Blood Pressure 128/70 04/04/19 12:30 O2 Sat by Pulse Oximetry (%) 100 04/04/19 12:10 Constitutional: Yes: Well Nourished, Calm Eyes: Yes: WNL HENT: Yes: WNL Neck: Yes: Supple (trach) Cardiovascular: Yes: Regular Rate and Rhythm, S1, S2 Respiratory: Yes: Rhonchi (few rhonchi) Gastrointestinal: Yes: Soft, Abdomen, Obese Extremities: Yes: WNL Labs: CBC, BMP 04/02/19 08:05 04/02/19 08:05 INR, PTT INR 1.49 (0.83-1.09) H 03/31/19 08:50 Problem List - Problems (1) Acute and chronic respiratory failure Code(s): J96.20 - ACUTE AND CHR RESP FAILURE, UNSP W HYPOXIA OR HYPERCAPNIA (2) Anemia Code(s): D64.9 - ANEMIA, UNSPECIFIED (3) Ascites Code(s): R18.8 - OTHER ASCITES (4) Atrial flutter Code(s): I48.92 - UNSPECIFIED ATRIAL FLUTTER (5) COPD (chronic obstructive pulmonary disease) Code(s): J44.9 - CHRONIC OBSTRUCTIVE PULMONARY DISEASE, UNSPECIFIED (6) GI bleed Code(s): K92.2 - GASTROINTESTINAL HEMORRHAGE, UNSPECIFIED (7) HLD (hyperlipidemia) Code(s): E78.5 - HYPERLIPIDEMIA, UNSPECIFIED (8) HTN (hypertension) Code(s): I10 - ESSENTIAL (PRIMARY) HYPERTENSION (9) Status post tracheostomy Code(s): Z93.0 - TRACHEOSTOMY STATUS Assessment/Plan ASSESSMENT AND PLAN: Chronic Respiratory Failure r/o UTI/Pneumonia/Sepsis Lactic Acidosis Atrial Flutter with RVR r/o GI Bleed Anemia CAD s/p CABG COPD HTN Hyperlipidemia Ascites - antibiotics completed - normal tranfusion threshold - protonix - monitor H/H - rate control DR MENA
--- NOTE | 2019-04-04 16:58 | PN ---
Progress Note (short form) - Note Progress Note: Consult Specialty:: Hematology Reason for Consultation:: R/O Hematologic Malignancy - History of Present Illness 83 year old gentleman with a pmhx of prostate CA s/p radiation, CAD s/p CABG 2018, dm, htn, esrd, copd, and s/p Trach/vent/peg sent from senior care for coffee ground emesis. Patient unable to provide medical history. Hematology was consulted for possible hematologic malignancies Visit 04/04: Looks better. Denies pain or discomfort - History Source History Provided By: Medical Record Limitations to Obtaining History: Clinical Condition - Past Medical History Cardio/Vascular: Yes: Aneurysm, CAD, HTN, Hyperlipdemia Pulmonary: Yes: COPD, Pneumonia, Other (trach/vent dependent) Renal/: Yes: Renal Failure Endocrine: Yes: Diabetes Mellitus - Past Surgical History Past Surgical History: Yes: AAA Repair, CABG - Alcohol/Substance Use Hx Alcohol Use: No History of Substance Use: reports: None - Smoking History Smoking history: Unknown if ever smoked Have you smoked in the past 12 months: No - Social History ADL: Support Services History of Recent Travel: No Home Medications - Allergies Allergies/Adverse Reactions: Allergies Allergy/AdvReac Type Severity Reaction Status Date / Time chlorhexidine Allergy Verified 03/30/19 21:38 Current Medications Diltiazem HCl (Cardizem -) 30 mg NR Q6HPO [facility] Last Admin: 04/04/19 12:32 Dose: 30 mg Lisinopril (Prinivil) 5 mg PEG DAILY [facility] Last Admin: 04/04/19 10:45 Dose: 5 mg Metoprolol Tartrate (Lopressor -) 50 mg PEG Q6HPO [facility] Last Admin: 04/04/19 12:32 Dose: 50 mg Sodium Chloride (Normal Saline For Inhalation -) 3 ml IH Q6H PRN PRN Reason: COUGH Physical Exam Last Vital Signs Temp Pulse Resp BP Pulse Ox 97.3 F L 86 22 H 107/63 98 04/04/19 15:07 04/04/19 15:45 04/04/19 15:45 04/04/19 15:07 04/04/19 15:45 Constitutional: Yes: No Distress Eyes: Yes: WNL, Conjunctiva Clear HENT: Yes: WNL Neck: Yes: WNL Cardiovascular: Yes: WNL Respiratory: Yes: WNL Gastrointestinal: Yes: Normal Bowel Sounds Integumentary: Yes: WNL, Bruising Neurological: Yes: Alert Labs: 04/02/19 08:05 04/02/19 08:05 Assessment/Plan 83 y/o gentleman with a pmhx of prostate CA s/p radiation, CAD s/p CABG 05/2018, dm, htn, esrd, copd, and s/p Trach/vent/peg sent from senior care for coffee ground emesis. Patient unable to provide history. Team suspicious for hematologic malignancies Recommend: 1) SPEP/UPEP ordered by team. Consider adding FLC , Beta 2 microglobulin 2) Given several red blood cell transfusions unlikely that lab determinations will be accurate now, but in the future VitB12, MMA, Folic Acid, Iron profile should be determined as well 3) May consider bone marrow examination in the future if no vitamin deficits are present
[2019-04-05] MEDS: dilTIAZem HCL 30 MG TABLET (FP) NR SCH ×4 (06:18→23:43)
[2019-04-05] MEDS: METOPROLOL TARTRATE 50 MG TABLET (FP) PEG SCH ×4 (06:18→23:43)
[2019-04-05] MEDS: LISINOPRIL 5 MG TABLET (FP) PEG SCH (10:36)
[2019-04-05] MEDS ORDERED: MINERAL OIL ENEMA 133 ML ENEMA PR ONE (11:49)
--- NOTE | 2019-04-05 11:58 | PN ---
Progress Note, Physician Chief Complaint: patient vomitted earlier today TF held small BM yesterday and prior to that no BM for 3 days per nursing records - Current Medication List Current Medications: Active Medications Diltiazem HCl (Cardizem -) 30 mg NR Q6HPO [facility] Last Admin: 04/05/19 06:18 Dose: 30 mg Lisinopril (Prinivil) 5 mg PEG DAILY [facility] Last Admin: 04/05/19 10:36 Dose: 5 mg Metoprolol Tartrate (Lopressor -) 50 mg PEG Q6HPO [facility] Last Admin: 04/05/19 06:18 Dose: 50 mg Sodium Chloride (Normal Saline For Inhalation -) 3 ml IH Q6H PRN PRN Reason: COUGH - Objective Vital Signs: Vital Signs Temperature 98.4 F 04/05/19 06:00 Pulse Rate 101 H 04/05/19 08:39 Respiratory Rate 22 H 04/05/19 08:39 Blood Pressure 140/90 04/05/19 06:00 O2 Sat by Pulse Oximetry (%) 100 04/05/19 08:39 Constitutional: Yes: Calm Cardiovascular: Yes: Regular Rate and Rhythm, S1, S2 Respiratory: Yes: Mechanically Ventilated Gastrointestinal: Yes: Normal Bowel Sounds, Soft Edema: Yes Labs: CBC, BMP 04/02/19 08:05 04/02/19 08:05 INR, PTT INR 1.49 (0.83-1.09) H 03/31/19 08:50 Problem List - Problems (1) Acute and chronic respiratory failure Assessment/Plan: iv abx completed on vent support dvt ppx Code(s): J96.20 - ACUTE AND CHR RESP FAILURE, UNSP W HYPOXIA OR HYPERCAPNIA (2) UTI (urinary tract infection) Assessment/Plan: Microbiology 03/31/19 02:17 Urine - Urine Nephrostomy Tube Left Urine Culture - Preliminary Klebsiella Pneumoniae - Esbl ID eval noted contact isolation Code(s): N39.0 - URINARY TRACT INFECTION, SITE NOT SPECIFIED (3) Ascites Assessment/Plan: 4 litres of fluid removed- s/p paracentesis- fluid analysis pending Code(s): R18.8 - OTHER ASCITES (4) Atrial flutter Assessment/Plan: control on metoprolol and diltiazem Code(s): I48.92 - UNSPECIFIED ATRIAL FLUTTER (5) Constipation Assessment/Plan: enema TF held for now till Code(s): K59.00 - CONSTIPATION, UNSPECIFIED
--- NOTE | 2019-04-05 12:30 | PN ---
Progress Note (short form) - Note Progress Note: PULMONARY Vented, awake. No fevers recorded. Vital Signs Period Temp Pulse Resp BP Sys/Kang Pulse Ox Last 24 Hr 97.3 F-99.2 F 86-110 20-26 107-150/61-90 98-100 Gen: vented, awake Heart: RRR Lung: decreased breath sounds at the bases Abd: soft, nontender Ext: + edema CBC, BMP 04/02/19 08:05 04/02/19 08:05 Active Medications Diltiazem HCl (Cardizem -) 30 mg NR Q6HPO [facility] Last Admin: 04/05/19 06:18 Dose: 30 mg Lisinopril (Prinivil) 5 mg PEG DAILY [facility] Last Admin: 04/05/19 10:36 Dose: 5 mg Metoprolol Tartrate (Lopressor -) 50 mg PEG Q6HPO [facility] Last Admin: 04/05/19 06:18 Dose: 50 mg Sodium Chloride (Normal Saline For Inhalation -) 3 ml IH Q6H PRN PRN Reason: COUGH A/P Chronic Respiratory Failure r/o UTI/Pneumonia/Sepsis Lactic Acidosis Atrial Flutter with RVR r/o GI Bleed Anemia CAD s/p CABG COPD HTN Hyperlipidemia Ascites - antibiotics completed - protonix - monitor H/H - rate control - enteral feeds as tolerated - DVT/GI prophylaxis
--- NOTE | 2019-04-05 13:04 | PN ---
Progress Note (short form) - Note Progress Note: PT vomited this am so TF held Only small bm yesterday, may be constipated IV abx complete Vital Signs Temp 98.4 F 04/05/19 06:00 Pulse 101 H 04/05/19 08:39 Resp 22 H 04/05/19 12:29 BP 140/90 04/05/19 06:00 Pulse Ox 100 04/05/19 08:39 NAD soft NT ND, PEG c/d/i CBC, BMP 04/02/19 08:05 04/02/19 08:05 Receiving mineral oil enema per PMD Can trial Miralax per PEG for constipation
[2019-04-05] MEDS ORDERED: PT OWN MED DRAWER 7, Y5N ONE ×3 (13:53→23:40)
[2019-04-05 15:07] LABS: BODY FLUID ALBUMIN 1.5 g/dL (Not Estab.)
[2019-04-05] MEDS ORDERED: BISACODYL 10 MG SUPP.RECT PR ONE (23:51)
--- NOTE | 2019-04-06 01:49 | RAPID ---
Physical Examination Vital Signs: Vital Signs Temperature 98.5 F 04/05/19 22:00 Pulse Rate 100 H 04/05/19 22:00 Respiratory Rate 24 H 04/06/19 00:37 Blood Pressure 144/80 04/05/19 22:00 O2 Sat by Pulse Oximetry (%) 99 04/05/19 09:00 Labs: CBC, BMP 04/02/19 08:05 04/02/19 08:05 Rapid Response - Rapid Response Assessment: Rapid response called to 5S at 01:45. Rapid response team arrived and per nurse , pt was tachycardic at 148. Pt is nonverbal. Vital signs: HR: 120 BP: 130/94 Temp: 98.9 PE: Heart: Tachycardic, S1, S2 Lungs: CTAB Abd: Edematous, mildly guarded Ext: 2+ edema up to waist >>Give 1 push 20mg cardizem >>Order CBC, CMP, Mg, Phos, trop, EKG, and KUB to r/o SBO CBC, BMP 04/06/19 02:20 04/06/19 02:20 Trop: neg x1 KUB: possible bowel obstruction or ileus. BL pleural effusions and possible pna >>Care deferred to Diego Mendoza, DELICIA
[2019-04-06] MEDS ORDERED: dilTIAZem HCL 25 MG/5 ML - 5 ML VIAL IVPUSH ONE (02:00)
[2019-04-06] MEDS ORDERED: ONDANSETRON 4 MG/2 ML VIAL IVPUSH PRN (02:10)
[2019-04-06 02:36] LABS: BASO % 0.1 % (0-2.0); EOS % 0.1 % (0-4.5); HEMATOCRIT 31.8 % (35.4-49); LYMPH % 2.3 % (8-40); MCH 31.3 pg (25.7-33.7); MCHC 31.4 g/dl (32.0-35.9); MEAN CELL VOLUME 99.6 fl (80-96); MEAN PLT VOLUME 8.9 fl (7.5-11.1); MONO % 4.2 % (3.8-10.2); NEUT % 93.3 % (42.8-82.8); PLATELET COUNT 191 K/MM3 (134-434); RBC 3.19 M/mm3 (4.00-5.60); RDW 21.9 % (11.9-15.9); WHITE BLOOD COUNT 28.9 K/mm3 (4.0-10.0)
[2019-04-06 03:09] LABS: ALBUMIN 1.7 g/dl (3.4-5.0); BILIRUBIN,TOTAL 1.1 mg/dL (0.2-1); BLOOD UREA NITROGEN 26.2 mg/dL (7-18); CALCIUM 8.2 mg/dL (8.5-10.1); CREATININE 0.9 mg/dL (0.55-1.3); MAGNESIUM 2.1 mg/dL (1.8-2.4); PHOSPHOROUS 2.6 mg/dL (2.5-4.9); POTASSIUM 3.7 mmol/L (3.5-5.1); TOT PROT 7.5 g/dl (6.4-8.2)
[2019-04-06 03:45] LABS: ANISOCYTOSIS 2+; MACROCYTOSIS 0
--- NOTE | 2019-04-06 05:34 | HOSP ---
Subjective - Review of Symptoms Events since last encounter: RN called hospitalist service as patient vomited x1 greenich color with abd distention, patient had also voimt x1 in AM, tube feeding on hold since 3 pm, fleet enema was given at 3pm no BM noted. KUB was ordered STAT, Ducalox suppository ordered. RN called Rapid response 01:45 as patient was tachycardic at 148. Pt is nonverbal, trach at basline. Vital signs: HR: 120 BP: 130/94 Temp: 98.9 GEN: NAD Heart: Tachycardic, S1, S2 Lungs: right side wheezing Abd: slight distended, Bs + Ext: 2+ edema b/l LE Trop: neg x1 KUB: possible bowel obstruction or ileus. BL pleural effusions and possible pna wbc: 28.9, Na+:151 A/P # Ileus vs obstruction # ? Aspiration pneumonia - patient had BM X1 -- resident gave x1 push 20mg cardizem with cardiac monitoring -- pending CT abd STAT r/o obstruction -- repeat cbc, bmp -- will start zosyn -- follow up ID CBC, BMP 04/06/19 02:20 04/06/19 02:20 Physical Examination Vital Signs: Vital Signs Temperature 98.9 F 04/06/19 02:00 Pulse Rate 148 H 04/06/19 02:00 Respiratory Rate 25 H 04/06/19 04:33 Blood Pressure 130/94 04/06/19 02:00 O2 Sat by Pulse Oximetry (%) 98 04/05/19 21:00 Labs: CBC, BMP 04/06/19 02:20 04/06/19 02:20
[2019-04-06] MEDS: dilTIAZem HCL 30 MG TABLET (FP) NR SCH ×4 (06:20→23:26)
[2019-04-06] MEDS: METOPROLOL TARTRATE 50 MG TABLET (FP) PEG SCH ×4 (06:20→23:26)
--- NOTE | 2019-04-06 09:00 | PN ---
Progress Note, Physician - Current Medication List Current Medications: Active Medications Diltiazem HCl (Cardizem -) 30 mg NR Q6HPO [facility] Last Admin: 04/06/19 06:20 Dose: 30 mg Piperacillin Sod/Tazobactam (Sod 3.375 gm/ Dextrose) 50 mls @ 100 mls/hr IVPB Q8H-IV [facility]; Protocol Potassium Chloride/Dextrose/Sod Cl (D5-1/2ns+20 Meq Kcl -) 20 meq in 1,000 mls @ 83 mls/hr IV ASDIR [facility] Lisinopril (Prinivil) 5 mg PEG DAILY [facility] Last Admin: 04/05/19 10:36 Dose: 5 mg Metoprolol Tartrate (Lopressor -) 50 mg PEG Q6HPO [facility] Last Admin: 04/06/19 06:20 Dose: 50 mg Ondansetron HCl (Zofran Injection) 4 mg IVPUSH Q6H PRN PRN Reason: NAUSEA AND/OR VOMITING Sodium Chloride (Normal Saline For Inhalation -) 3 ml IH Q6H PRN PRN Reason: COUGH - Objective Vital Signs: Vital Signs Temperature 99.4 F 04/06/19 06:00 Pulse Rate 118 H 04/06/19 06:00 Respiratory Rate 22 H 04/06/19 06:00 Blood Pressure 143/92 04/06/19 06:00 O2 Sat by Pulse Oximetry (%) 98 04/05/19 21:00 Cardiovascular: Yes: Pulse Irregular, S1, S2 Respiratory: Yes: Mechanically Ventilated, Rhonchi Gastrointestinal: Yes: Soft, Distention Labs: INR, PTT INR 1.49 (0.83-1.09) H 03/31/19 08:50 Problem List - Problems (1) Ascites Assessment/Plan: paracentesis GI Noted Chemistries pending on ascitic fluid. Note albumin of 1.8 with elevated globulins; also 2+ proteinuria, macrocytic anemia -> raise suspicion of hematologic malignancy. SPEP and serum VIGNESH ordered. Hem noted Now more Distension-R/O SBO CT Abd-Pelv GI f/u NPO Code(s): R18.8 - OTHER ASCITES (2) Anemia Assessment/Plan: -Gi consult noted -Hem consult noted Code(s): D64.9 - ANEMIA, UNSPECIFIED (3) Sepsis Assessment/Plan: 03/31/19 02:17 Urine - Urine Nephrostomy Tube Left Urine Culture - Preliminary Klebsiella Pneumoniae - Esbl ID eval noted--Follow up for rising wbc--28 contact isolation Code(s): A41.9 - SEPSIS, UNSPECIFIED ORGANISM (4) Acute and chronic respiratory failure Assessment/Plan: off iv abx per id pleural effusion and bibasilar consolidatin on chest CT pulm on case Code(s): J96.20 - ACUTE AND CHR RESP FAILURE, UNSP W HYPOXIA OR HYPERCAPNIA (5) COPD (chronic obstructive pulmonary disease) Assessment/Plan: ABOVE Code(s): J44.9 - CHRONIC OBSTRUCTIVE PULMONARY DISEASE, UNSPECIFIED (6) Diabetes mellitus Assessment/Plan: BGM Code(s): E11.9 - TYPE 2 DIABETES MELLITUS WITHOUT COMPLICATIONS (7) HTN (hypertension) Assessment/Plan: Vital Signs Period Temp Pulse Resp BP Sys/Kang Pulse Ox Last 24 Hr 97.7 F-98.2 F 90-95 20-26 130-140/78-81 99-100 Code(s): I10 - ESSENTIAL (PRIMARY) HYPERTENSION (8) Atrial flutter Assessment/Plan: controlled on metoprolol and diltiazem--tachy last night-given cardizem maybe due to vomiting cardio follow up ekg Code(s): I48.92 - UNSPECIFIED ATRIAL FLUTTER (9) SBO (small bowel obstruction) Assessment/Plan: CT SCAN GI npo \ivf Code(s): K56.609 - UNSP INTESTNL OBST, UNSP TO PARTIAL VERSUS COMPLETE OBST
[2019-04-06 09:39] LABS: ALBUMIN 1.6 g/dl (3.4-5.0); BILIRUBIN,TOTAL 1.2 mg/dL (0.2-1); BLOOD UREA NITROGEN 26.8 mg/dL (7-18); CALCIUM 8.3 mg/dL (8.5-10.1); CREATININE 0.9 mg/dL (0.55-1.3); POTASSIUM 3.8 mmol/L (3.5-5.1); TOT PROT 7.2 g/dl (6.4-8.2)
--- NOTE | 2019-04-06 10:03 | PN ---
Progress Note, Physician Chief Complaint: asked to see patient for episode of tachycardia last night vomiting, pallor History of Present Illness: 83 year old male with a pmhx of prostate CA s/p radiation, CAD s/p CABG 05/2018, dm, htn, esrd, copd, and s/p Trach/vent/peg sent from retirement for coffee ground emesis. Patient cannot give history. EKG: atach/flutter with VR 136bpm, NIVCD CT chest/abd/pelvis: Bilateral pleural effusions, consolidation, moderate to large ascites 4.6cm Throacic anuerysm had episode of vomiting and tachycardia last night. ECG showed aflutter with 2:1 block, given IV dilt. CXR done result pending. HR now controlled. - Current Medication List Current Medications: Active Medications Diltiazem HCl (Cardizem -) 30 mg NR Q6HPO [facility] Last Admin: 04/06/19 06:20 Dose: 30 mg Piperacillin Sod/Tazobactam (Sod 3.375 gm/ Dextrose) 50 mls @ 100 mls/hr IVPB Q8H-IV [facility]; Protocol Potassium Chloride/Dextrose/Sod Cl (D5-1/2ns+20 Meq Kcl -) 20 meq in 1,000 mls @ 83 mls/hr IV ASDIR [facility] Lisinopril (Prinivil) 5 mg PEG DAILY [facility] Last Admin: 04/05/19 10:36 Dose: 5 mg Metoprolol Tartrate (Lopressor -) 50 mg PEG Q6HPO [facility] Last Admin: 04/06/19 06:20 Dose: 50 mg Ondansetron HCl (Zofran Injection) 4 mg IVPUSH Q6H PRN PRN Reason: NAUSEA AND/OR VOMITING Sodium Chloride (Normal Saline For Inhalation -) 3 ml IH Q6H PRN PRN Reason: COUGH - Objective Vital Signs: Vital Signs Temperature 99.1 F 04/06/19 09:12 Pulse Rate 100 H 04/06/19 09:12 Respiratory Rate 20 04/06/19 09:12 Blood Pressure 156/93 04/06/19 09:12 O2 Sat by Pulse Oximetry (%) 98 04/05/19 21:00 Constitutional: Yes: No Distress Eyes: Yes: EOM Intact HENT: Yes: Normocephalic Neck: Yes: Trachea Midline (+tracheostomy) Cardiovascular: Yes: Pulse Irregular, S1, S2 Respiratory: Yes: Mechanically Ventilated Gastrointestinal: Yes: Normal Bowel Sounds, Soft Musculoskeletal: Yes: WNL Extremities: Yes: WNL Edema: No Labs: CBC, BMP 04/06/19 07:48 04/06/19 07:48 INR, PTT INR 1.49 (0.83-1.09) H 03/31/19 08:50 Assessment/Plan 83 year old male with a pmhx of prostate CA s/p radiation, CAD s/p CABG 05/2018, dm, htn, esrd, copd, and s/p Trach/vent/peg sent from retirement for coffee ground emesis. Patient cannot give history. EKG: atach/flutter with VR 136bpm, NIVCD CT chest/abd/pelvis: Bilateral pleural effusions, consolidation, moderate to large ascites 4.6cm Throacic anuerysm had episode of vomiting and tachycardia 04/06/19. no evidence of obstruction. 1) CV -No intervention for TAA 4.6cm. BP control and beta filippo -Abx as per primary team. -he is in rate controlled atach/aflutter. -would start Eliquis if there are no GI contraindications. -not a cardiac workup candidate. -likely tachycardia was due to vomiting and likely aspiration with brief hypoxia. -continue current regimen. -call us as needed.
[2019-04-06] MEDS: D5-1/2NS+20 MEQ KCL - 20 MEQ/1,000 ML INFUS.BAG IV SCH (10:14)
--- NOTE | 2019-04-06 10:18 | EKG ---
Test Reason : Blood Pressure : / mmHG Vent. Rate : 099 BPM Atrial Rate : 099 BPM P-R Int : 182 ms QRS Dur : 116 ms QT Int : 388 ms P-R-T Axes : 267 -43 169 degrees QTc Int : 497 ms ATRIAL TACHYCARDIA LEFT AXIS DEVIATION POSSIBLE ANTERIOR INFARCT , AGE UNDETERMINED T WAVE ABNORMALITY, CONSIDER LATERAL ISCHEMIA ABNORMAL ECG Confirmed by Ross Rousseau MD ([id number]) on 04/06/2019 10:18:17 AM Referred By: Rey SOTELO Confirmed By:Ross Rousseau MD
[2019-04-06] MEDS: LISINOPRIL 5 MG TABLET (FP) PEG SCH (10:54)
[2019-04-06 11:10] LABS: HEMATOCRIT 30.6 % (35.4-49); HEMOGLOBIN 9.6 GM/dL (11.7-16.9); MCH 30.7 pg (25.7-33.7); MCHC 31.4 g/dl (32.0-35.9); MEAN CELL VOLUME 97.8 fl (80-96); PLATELET COUNT 170 K/MM3 (134-434); RBC 3.13 M/mm3 (4.00-5.60); RDW 21.7 % (11.9-15.9)
--- NOTE | 2019-04-06 11:27 | PN ---
Progress Note (short form) - Note Progress Note: PULMONARY Overnight events noted. Vented, awake. No fevers recorded. Vital Signs Period Temp Pulse Resp BP Sys/Kang Pulse Ox Last 24 Hr 97.8 F-99.4 F 100-148 16-25 130-156/79-94 98 Gen: vented, awake Heart: RRR Lung: decreased breath sounds at the bases Abd: soft, nontender Ext: + edema CBC, BMP 04/06/19 10:28 04/06/19 07:48 Active Medications Diltiazem HCl (Cardizem -) 30 mg NR Q6HPO [facility] Last Admin: 04/06/19 06:20 Dose: 30 mg Piperacillin Sod/Tazobactam (Sod 3.375 gm/ Dextrose) 50 mls @ 100 mls/hr IVPB Q8H-IV [facility]; Protocol Potassium Chloride/Dextrose/Sod Cl (D5-1/2ns+20 Meq Kcl -) 20 meq in 1,000 mls @ 83 mls/hr IV ASDIR [facility] Last Admin: 04/06/19 10:14 Dose: 83 mls/hr Lisinopril (Prinivil) 5 mg PEG DAILY [facility] Last Admin: 04/06/19 10:54 Dose: 5 mg Metoprolol Tartrate (Lopressor -) 50 mg PEG Q6HPO [facility] Last Admin: 04/06/19 06:20 Dose: 50 mg Ondansetron HCl (Zofran Injection) 4 mg IVPUSH Q6H PRN PRN Reason: NAUSEA AND/OR VOMITING Sodium Chloride (Normal Saline For Inhalation -) 3 ml IH Q6H PRN PRN Reason: COUGH A/P Chronic Respiratory Failure r/o UTI/Pneumonia/Sepsis Lactic Acidosis Atrial Flutter with RVR r/o GI Bleed Anemia CAD s/p CABG COPD HTN Hyperlipidemia Ascites - continue antibiotics - protonix - monitor H/H - rate control - anticoagulation if no contraindications - enteral feeds as tolerated - DVT/GI prophylaxis
[2019-04-06] MEDS ORDERED: PT OWN MED DRAWER 7, Y5N ONE ×3 (11:54→21:13)
--- NOTE | 2019-04-06 15:56 | PN ---
Progress Note (short form) - Note Progress Note: off antibiotics since 04/02 developed vomiting yesterday with tachycardia noted today to have elevated WBC ct abd/pelvis pending history of prostate cancer Vital Signs Period Temp Pulse Resp BP Sys/Kang Pulse Ox Last 24 Hr 98.5 F-99.4 F 96-148 16-25 128-156/73-94 98 he is alert trach to vent cor-rrr lungs decreased bs at bases abd soft, mildly distended +GT ext no edema +bilateral PCN CBC, BMP 04/06/19 10:28 04/06/19 07:48 Microbiology 04/02/19 14:54 Peritoneal Fluid Gram Stain - Final 04/02/19 14:54 Peritoneal Fluid Body Fluid Culture - Final NO GROWTH OF AEROBIC ORGANISMS AFTER 48 HOURS INCUBATION 04/02/19 14:54 Peritoneal Fluid Anaerobic Culture - Final NO ANAEROBES WERE ISOLATED 04/02/19 14:54 Peritoneal Fluid AFB Smear Concentration - Preliminary 04/02/19 14:54 Peritoneal Fluid Mycobacterial Culture - Preliminary 03/31/19 01:27 Blood - Peripheral Venous Blood Culture - Final NO GROWTH AFTER 5 DAYS INCUBATION 03/31/19 01:27 Blood - Peripheral Venous Blood Culture - Final NO GROWTH AFTER 5 DAYS INCUBATION 04/02/19 14:54 Peritoneal Fluid ROB Preparation - Preliminary 04/02/19 14:54 Peritoneal Fluid Fungal Culture - Preliminary 03/31/19 02:17 Urine - Urine Nephrostomy Tube Left Urine Culture - Final Klebsiella Pneumoniae - Esbl a/p leukocytosis- no fevers- f/u ct scan of abd/pelvis repeat blood cultures stat ?reactive to vomiting ?aspiration, colonized with resistant klebsiella (CRE) zosyn/gentamicin contact isolation for VRE overall prognosis is poor
[2019-04-06] MEDS ORDERED: SODIUM CHLORIDE IVPB ONE (16:05)
[2019-04-06] MEDS ORDERED: GENTAMICIN IVPB ONE (16:05)
--- NOTE | 2019-04-06 17:07 | PN ---
Progress Note (short form) - Note Progress Note: Patient seen and examined Awake Last Vital Signs Temp Pulse Resp BP Pulse Ox 99 F 99 H 20 156/78 98 04/06/19 15:00 04/06/19 15:00 04/06/19 15:00 04/06/19 15:00 04/05/19 21:00 HEENT: TREVA, EOM Intact Oropharynx: No thrush, No mucositis, oxygen Neck: trach - oxygen Cor: RSR, No murmurs, No gallops Lungs: diminished Abd: distended , ascites,PEG Ext:LE edema edema Skin: petechiae CBC, BMP 04/06/19 10:28 04/06/19 07:48 Current Medications Generic Name Dose Route Start Last Admin Trade Name Freq PRN Reason Stop Dose Admin Diltiazem HCl 30 mg 04/03/19 12:32 04/06/19 11:58 Cardizem - NR 30 mg Q6HPO [facility] Administration Piperacillin Sod/Tazobactam 50 mls @ 100 mls/hr 04/06/19 18:00 Sod 3.375 gm/ Dextrose IVPB Q8H-IV [facility] Protocol Potassium Chloride/Dextrose/Sod Cl 20 meq in 1,000 mls @ 83 mls/hr 04/06/19 08 :45 04/06/19 10:14 D5-1/2ns+20 Meq Kcl - IV 83 mls/hr ASDIR [facility] Administration Gentamicin Sulfate 140 mg/ 103.5 mls @ 100 mls/hr 04/06/19 16:05 Sodium Chloride IVPB 04/06/19 17:07 ONCE ONE Protocol Lisinopril 5 mg 04/02/19 10:00 04/06/19 10:54 Prinivil PEG 5 mg DAILY [facility] Administration Metoprolol Tartrate 50 mg 04/02/19 01:00 04/06/19 11:58 Lopressor - PEG 50 mg Q6HPO [facility] Administration Ondansetron HCl 4 mg 04/06/19 02:10 Zofran Injection IVPUSH Q6H PRN NAUSEA AND/OR VOMITING Sodium Chloride 3 ml 04/02/19 02:23 Normal Saline For Inhalation - IH Q6H PRN COUGH Microbiology 04/02/19 14:54 Peritoneal Fluid Gram Stain - Final 04/02/19 14:54 Peritoneal Fluid Body Fluid Culture - Final NO GROWTH OF AEROBIC ORGANISMS AFTER 48 HOURS INCUBATION 04/02/19 14:54 Peritoneal Fluid Anaerobic Culture - Final NO ANAEROBES WERE ISOLATED 04/02/19 14:54 Peritoneal Fluid AFB Smear Concentration - Preliminary 04/02/19 14:54 Peritoneal Fluid Mycobacterial Culture - Preliminary 03/31/19 01:27 Blood - Peripheral Venous Blood Culture - Final NO GROWTH AFTER 5 DAYS INCUBATION 03/31/19 01:27 Blood - Peripheral Venous Blood Culture - Final NO GROWTH AFTER 5 DAYS INCUBATION 04/02/19 14:54 Peritoneal Fluid ROB Preparation - Preliminary 04/02/19 14:54 Peritoneal Fluid Fungal Culture - Preliminary 03/31/19 02:17 Urine - Urine Nephrostomy Tube Left Urine Culture - Final Klebsiella Pneumoniae - Esbl Impression: Chronic respiratory failure Pneumonia ESBL UTI Anemia COPD Low iron and TIBC compatible with chronic disease anemia, although cannot exclude componenat of blood loss Polyclonal gammopathy
[2019-04-06] MEDS ORDERED: PIPERACILLIN/TAZOBACTAM 3.375 GM VIAL IVPB ONE (17:35)
[2019-04-06] MEDS ORDERED: DEXTROSE 5%-WATER - 50 ML IVPB ONE (17:35)
[2019-04-06] MEDS: PIPERACILLIN/TAZOB 3.375 GM 3.375 GM in DEXTROSE 5%-WATER - 50 ML IVPB SCH (17:36)
[2019-04-07] MEDS ORDERED: DEXTROSE 5%-WATER - 50 ML IVPB ONE ×3 (00:56→15:50)
[2019-04-07] MEDS ORDERED: PIPERACILLIN/TAZOBACTAM 3.375 GM VIAL IVPB ONE ×3 (00:56→15:50)
[2019-04-07] MEDS: PIPERACILLIN/TAZOB 3.375 GM 3.375 GM in DEXTROSE 5%-WATER - 50 ML IVPB SCH ×3 (01:06→17:27)
[2019-04-07] MEDS: D5-1/2NS+20 MEQ KCL - 20 MEQ/1,000 ML INFUS.BAG IV SCH ×3 (01:06→17:27)
[2019-04-07] MEDS: dilTIAZem HCL 30 MG TABLET (FP) NR SCH ×4 (06:21→23:58)
[2019-04-07] MEDS: METOPROLOL TARTRATE 50 MG TABLET (FP) PEG SCH ×4 (06:21→23:58)
--- NOTE | 2019-04-07 09:40 | CONS ---
INFECTIOUS DISEASE CONSULTATION DATE OF CONSULTATION: DATE OF DICTATION: 04/06/2019 HISTORY OF PRESENT ILLNESS: This is an 83-year-old man who I saw on March 31. He had been admitted, but overnight on March 30, I saw him in the emergency room with coffee-ground emesis from the [facility]. He had a history of chronic respiratory failure and was recently admitted on the to [facility]. At that point, no details were known. He was noted to be anemic and tachycardic. There was no hypotension. He had a lactic acid of 2.1 and a white count of 12.4 and no fevers. He was alert. He had bilateral percutaneous nephrostomy tubes. Further details were not known. He had CAT scans of his abdomen and pelvis done that showed ascites, anasarca, bilateral pleural effusions, with consolidation and atelectasis of the lower lobes. ALLERGIES: He is allergic to CHLORHEXIDINE. PAST MEDICAL HISTORY: Notable for aortic aneurysm, coronary artery disease, hypertension, hyperlipidemia, chronic respiratory failure, he has a tracheostomy , COPD, pneumonia, he is ventilator dependent, history of CKD, anemia, and diabetes. SURGICAL HISTORY: Notable for aneurysm repair and CABG. There is no referral to his bilateral nephrostomy tubes. He has a history of prostate cancer, as well. He has a tracheostomy and a PEG. ADVANCE DIRECTIVE: He is DNR. SOCIAL HISTORY: Not available. He is currently living at the [facility]. MEDICATIONS: On the time of admission included vitamin B12, Cardizem, Lexapro, iron, finasteride, lisinopril, metoprolol, and risperidone. FAMILY HISTORY: Not obtainable. REVIEW OF SYSTEMS: Not obtainable. PHYSICAL EXAMINATION: General: Awake and alert. There is no distress. Vital Signs: He had no fever , tracheostomy to ventilator. HEENT: He is normocephalic. His eyes are anicteric. Neck: Supple. Abdomen: Soft. He has a G-tube site which is clean. He has bilateral percutaneous tubes, draining clear urine. Extremities: Without edema. LABORATORIES: Notable on admission for a white count of 12.7, hemoglobin 7.3, platelets of 238. His BUN and Cr were 47 and 1.1. He was admitted to the ICU for the tachycardia. His blood cultures were negative. There are no clear signs of pneumonia. He was started on broad spectrum. At that point, given the persistent tachycardia, continued the Zosyn, pending cultures. Blood transfusion had been ordered and he was being evaluated by GI. 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 Further recommendations to follow. CELIO DAO M.D. RIAN/[id number] MTDD
--- NOTE | 2019-04-07 09:49 | PN ---
Progress Note, Physician - Current Medication List Current Medications: Active Medications Diltiazem HCl (Cardizem -) 30 mg NR Q6HPO [facility] Last Admin: 04/07/19 06:21 Dose: 30 mg Piperacillin Sod/Tazobactam (Sod 3.375 gm/ Dextrose) 50 mls @ 100 mls/hr IVPB Q8H-IV [facility]; Protocol Last Admin: 04/07/19 01:06 Dose: 100 mls/hr Potassium Chloride/Dextrose/Sod Cl (D5-1/2ns+20 Meq Kcl -) 20 meq in 1,000 mls @ 83 mls/hr IV ASDIR [facility] Last Admin: 04/07/19 01:06 Dose: 83 mls/hr Lisinopril (Prinivil) 5 mg PEG DAILY [facility] Last Admin: 04/06/19 10:54 Dose: 5 mg Metoprolol Tartrate (Lopressor -) 50 mg PEG Q6HPO [facility] Last Admin: 04/07/19 06:21 Dose: 50 mg Ondansetron HCl (Zofran Injection) 4 mg IVPUSH Q6H PRN PRN Reason: NAUSEA AND/OR VOMITING Sodium Chloride (Normal Saline For Inhalation -) 3 ml IH Q6H PRN PRN Reason: COUGH - Objective Vital Signs: Vital Signs Temperature 98.8 F 04/07/19 06:00 Pulse Rate 96 H 04/07/19 06:00 Respiratory Rate 22 H 04/07/19 06:00 Blood Pressure 137/62 04/07/19 06:00 O2 Sat by Pulse Oximetry (%) 100 04/06/19 21:00 Cardiovascular: Yes: S1, S2 Respiratory: Yes: Mechanically Ventilated, Rhonchi Gastrointestinal: Yes: Normal Bowel Sounds, Soft, Distention Edema: No Labs: CBC, BMP 04/06/19 10:28 04/06/19 07:48 INR, PTT INR 1.49 (0.83-1.09) H 03/31/19 08:50 Problem List - Problems (1) Ascites Assessment/Plan: paracentesis GI Noted Chemistries pending on ascitic fluid. Note albumin of 1.8 with elevated globulins; also 2+ proteinuria, macrocytic anemia -> raise suspicion of hematologic malignancy. SPEP and serum VIGNESH ordered. Hem noted Now more Distension-R/O SBO CT Abd-Pelv--no obstruction GI f/u noted diet per GI Code(s): R18.8 - OTHER ASCITES (2) Anemia Assessment/Plan: -Gi consult noted -Hem consult noted Code(s): D64.9 - ANEMIA, UNSPECIFIED (3) Sepsis Assessment/Plan: 03/31/19 02:17 Urine - Urine Nephrostomy Tube Left Urine Culture - Preliminary Klebsiella Pneumoniae - Esbl ID eval noted--Follow up for rising wbc--28--25--follow up noted-observe off abx contact isolation Code(s): A41.9 - SEPSIS, UNSPECIFIED ORGANISM (4) Acute and chronic respiratory failure Assessment/Plan: off iv abx per id pleural effusion and bibasilar consolidatin on chest CT pulm on case Code(s): J96.20 - ACUTE AND CHR RESP FAILURE, UNSP W HYPOXIA OR HYPERCAPNIA (5) COPD (chronic obstructive pulmonary disease) Assessment/Plan: ABOVE Code(s): J44.9 - CHRONIC OBSTRUCTIVE PULMONARY DISEASE, UNSPECIFIED (6) Diabetes mellitus Assessment/Plan: BGM Code(s): E11.9 - TYPE 2 DIABETES MELLITUS WITHOUT COMPLICATIONS (7) HTN (hypertension) Assessment/Plan: Vital Signs Period Temp Pulse Resp BP Sys/Kang Pulse Ox Last 24 Hr 97.7 F-98.2 F 90-95 20-26 130-140/78-81 99-100 Code(s): I10 - ESSENTIAL (PRIMARY) HYPERTENSION (8) Atrial flutter Assessment/Plan: controlled on metoprolol and diltiazem--tachy last night-given cardizem maybe due to vomiting cardio follow up noted--monitor ekg Code(s): I48.92 - UNSPECIFIED ATRIAL FLUTTER (9) SBO (small bowel obstruction) Assessment/Plan: CT SCAN noted-no obstruction GI npo--per gI \ivf Code(s): K56.609 - UNSP INTESTNL OBST, UNSP TO PARTIAL VERSUS COMPLETE OBST
[2019-04-07 10:32] LABS: BASO % 0.2 % (0-2.0); EOS % 0.6 % (0-4.5); HEMATOCRIT 27.8 % (35.4-49); HEMOGLOBIN 8.8 GM/dL (11.7-16.9); LYMPH % 2.3 % (8-40); MCH 31.3 pg (25.7-33.7); MCHC 31.8 g/dl (32.0-35.9); MEAN CELL VOLUME 98.4 fl (80-96); MEAN PLT VOLUME 9.5 fl (7.5-11.1); MONO % 3.8 % (3.8-10.2); NEUT % 93.1 % (42.8-82.8); PLATELET COUNT 161 K/MM3 (134-434); RBC 2.83 M/mm3 (4.00-5.60); RDW 21.2 % (11.9-15.9)
[2019-04-07] MEDS: LISINOPRIL 5 MG TABLET (FP) PEG SCH (10:53)
[2019-04-07 11:04] LABS: ALBUMIN 1.4 g/dl (3.4-5.0); BLOOD UREA NITROGEN 25.8 mg/dL (7-18); CALCIUM 7.6 mg/dL (8.5-10.1); CREATININE 0.9 mg/dL (0.55-1.3); POTASSIUM 4.1 mmol/L (3.5-5.1); TOT PROT 6.3 g/dl (6.4-8.2)
--- NOTE | 2019-04-07 11:44 | PN.GI ---
GI Progress Note Subjective: Pt seen/examined at bedside, nonverbal, nods yes/no, denies pain or nausea currently. No further vomiting per nursing staff. Small bm noted. - Objective Vital Signs: Vital Signs Temperature 98.8 F 04/07/19 06:00 Pulse Rate 96 H 04/07/19 06:00 Respiratory Rate 22 H 04/07/19 06:00 Blood Pressure 137/62 04/07/19 06:00 O2 Sat by Pulse Oximetry (%) 100 04/06/19 21:00 Constitutional: No Distress, Calm Cardiovascular: Yes: WNL, Regular Rate and Rhythm Respiratory: Yes: Mechanically Ventilated ...Palpate: Yes: Other (Abd softly distended, no tenderness elicited, PEG in place) Labs: CBC, BMP 04/07/19 10:00 04/07/19 10:00 INR, PTT INR 1.49 (0.83-1.09) H 03/31/19 08:50 Problem List - Problems (1) Coffee ground emesis Assessment/Plan: 83yo male h/o CABG, HTN, ESRD s/p Nephrostomy Tubes, COPD s/p Trach/Vent Dependent, PEG, DM presenting from alf with coffee ground emesis with macrocytic anemia. CT revealing bilateral pleural effusions, consolidation and ascites. No acute findings on repeat scan, no evidence of obstruction. No further vomiting. Hb stable with no overt bleeding. Anemia likely multifactorial , appears more consistent with AOCD though cannot exclude component of iron deficiency. -Detailed discussion taken place with pts daughter regarding risks/benefits of endoscopic evaluation, as was also explained by Dr. Cee. Discussed risks/ benefits including not limited to bleeding, infection, cardiorespiratory compromise, and potential for missed lesions if endoscop not pursued and potential risk for bleeding without identifying source if anticoagulation initiated. -At this pts daughter would like to avoid endoscopy though if signs of bleeding would be willing to re-consider. -Await endoscopy reports from [facility] to confirm findings -PPI daily -Could start trickle feeds and advance as tolerated -Recommend continued optimization from cardiorespiratory standpoint -Antibiotics per ID -Anticoagulation per cardiology as risks/benefits need to be weighed with no plan for endoscopy currently as discussed with pts daughter -Attempted to contact Dr. Waters to discuss above, await call back Code(s): K92.0 - HEMATEMESIS (2) Ascites Assessment/Plan: No evidence of SBP, not consistent with portal HTN. Total protein elevated suggestive of cardiac etiology. Cytology pending (spoke with lab). Code(s): R18.8 - OTHER ASCITES
[2019-04-07 12:19] LABS: ANISOCYTOSIS 3+; MACROCYTOSIS 0; PLATELET ESTIMATE NORMAL; TARGET CELLS 1+
--- NOTE | 2019-04-07 14:01 | PN ---
Progress Note, Physician History of Present Illness: PULMONARY COMFORTABLE,NO DISTRESS,ON VENT SUPPORT AC MODE - Current Medication List Current Medications: Active Medications Diltiazem HCl (Cardizem -) 30 mg NR Q6HPO [facility] Last Admin: 04/07/19 11:42 Dose: 30 mg Piperacillin Sod/Tazobactam (Sod 3.375 gm/ Dextrose) 50 mls @ 100 mls/hr IVPB Q8H-IV [facility]; Protocol Last Admin: 04/07/19 10:52 Dose: 100 mls/hr Potassium Chloride/Dextrose/Sod Cl (D5-1/2ns+20 Meq Kcl -) 20 meq in 1,000 mls @ 83 mls/hr IV ASDIR [facility] Last Admin: 04/07/19 10:54 Dose: Not Given Lisinopril (Prinivil) 5 mg PEG DAILY [facility] Last Admin: 04/07/19 10:53 Dose: 5 mg Metoprolol Tartrate (Lopressor -) 50 mg PEG Q6HPO [facility] Last Admin: 04/07/19 11:42 Dose: 50 mg Ondansetron HCl (Zofran Injection) 4 mg IVPUSH Q6H PRN PRN Reason: NAUSEA AND/OR VOMITING Pantoprazole Sodium (Protonix Iv) 40 mg IVPUSH DAILY [facility] Sodium Chloride (Normal Saline For Inhalation -) 3 ml IH Q6H PRN PRN Reason: COUGH - Objective Vital Signs: Vital Signs Temperature 98.8 F 04/07/19 06:00 Pulse Rate 96 H 04/07/19 10:00 Respiratory Rate 18 04/07/19 10:00 Blood Pressure 130/70 04/07/19 10:00 O2 Sat by Pulse Oximetry (%) 100 04/07/19 09:00 Constitutional: Yes: Well Nourished, Calm Eyes: Yes: WNL HENT: Yes: WNL Neck: Yes: Supple Cardiovascular: Yes: Regular Rate and Rhythm, S1, S2 Respiratory: Yes: Rhonchi (FEW SCATTERED RHONCHI) Gastrointestinal: Yes: Normal Bowel Sounds, Soft Extremities: Yes: WNL Edema: Yes Labs: CBC, BMP 04/07/19 10:00 04/07/19 10:00 INR, PTT INR 1.49 (0.83-1.09) H 03/31/19 08:50 Problem List - Problems (1) Acute and chronic respiratory failure Code(s): J96.20 - ACUTE AND CHR RESP FAILURE, UNSP W HYPOXIA OR HYPERCAPNIA (2) Anemia Code(s): D64.9 - ANEMIA, UNSPECIFIED (3) Ascites Code(s): R18.8 - OTHER ASCITES (4) Atrial flutter Code(s): I48.92 - UNSPECIFIED ATRIAL FLUTTER (5) COPD (chronic obstructive pulmonary disease) Code(s): J44.9 - CHRONIC OBSTRUCTIVE PULMONARY DISEASE, UNSPECIFIED (6) GI bleed Code(s): K92.2 - GASTROINTESTINAL HEMORRHAGE, UNSPECIFIED (7) HLD (hyperlipidemia) Code(s): E78.5 - HYPERLIPIDEMIA, UNSPECIFIED (8) HTN (hypertension) Code(s): I10 - ESSENTIAL (PRIMARY) HYPERTENSION (9) Status post tracheostomy Code(s): Z93.0 - TRACHEOSTOMY STATUS Assessment/Plan ASSESSMENT AND PLAN: Chronic Respiratory Failure r/o UTI/Pneumonia/Sepsis Lactic Acidosis Atrial Flutter with RVR r/o GI Bleed Anemia CAD s/p CABG COPD HTN Hyperlipidemia Ascites - antibiotics - normal transfusion threshold - protonix - monitor H/H - rate control DR MENA
--- NOTE | 2019-04-07 17:03 | PATH ---
Cytology Non-Gynecological Report Patient Name: TOMI BUSTOS [facility]. Rec. #: [id number] /Age/Gender: 1935 (Age: 83) / M Account: [id number] Location: [address] [place] [address] Taken: 04/02/2019 Received: 04/05/2019 Reported: 04/07/2019 Physicians: Raisa Villalpando M.D. Specimen(s) Received A: ABDOMINAL FLUID B: ABDOMINAL FLUID Clinical History Ascites Final Diagnosis A-B. ABDOMINAL FLUID, PARACENTESIS: SATISFACTORY FOR EVALUATION. NO MALIGNANT CELLS IDENTIFIED. MESOTHELIAL CELLS AND MACROPHAGES PRESENT. Comment: Findings are best represented on the cell block material. Recommend correlation with clinical findings and follow up as clinically indicated. Electronically Signed Regina Escobar M.D. Gross Description A. Approximately 60 cc of yellow fluid received fixed in 50% alcohol. One cytofunnel prepared and Pap stained. One cellblock prepared. B. Approximately 1100 cc of yellow fluid received fresh. One cytofunnel prepared and Pap stained. One cellblock prepared.
--- NOTE | 2019-04-07 17:40 | PN ---
Progress Note (short form) - Note Progress Note: off antibiotics since 04/02 developed vomiting yesterday with tachycardia no vomiting today alert, no distress Vital Signs Period Temp Pulse Resp BP Sys/Kang Pulse Ox Last 24 Hr 98.8 F-99.0 F 96-98 18-23 127-137/62-72 100-100 trach to vent cor-rrr lungs decreased bs at bases abd soft,nt ext no edema +GT CBC, BMP 04/07/19 10:00 04/07/19 10:00 Microbiology 04/02/19 14:54 Peritoneal Fluid Gram Stain - Final 04/02/19 14:54 Peritoneal Fluid Body Fluid Culture - Final NO GROWTH OF AEROBIC ORGANISMS AFTER 48 HOURS INCUBATION 04/02/19 14:54 Peritoneal Fluid Anaerobic Culture - Final NO ANAEROBES WERE ISOLATED 04/02/19 14:54 Peritoneal Fluid AFB Smear Concentration - Preliminary 04/02/19 14:54 Peritoneal Fluid Mycobacterial Culture - Preliminary 03/31/19 01:27 Blood - Peripheral Venous Blood Culture - Final NO GROWTH AFTER 5 DAYS INCUBATION 03/31/19 01:27 Blood - Peripheral Venous Blood Culture - Final NO GROWTH AFTER 5 DAYS INCUBATION 04/02/19 14:54 Peritoneal Fluid ROB Preparation - Preliminary 04/02/19 14:54 Peritoneal Fluid Fungal Culture - Preliminary 03/31/19 02:17 Urine - Urine Nephrostomy Tube Left Urine Culture - Final Klebsiella Pneumoniae - Esbl ct scan bilateral effusions, lower lobe consolidations, ascites, no hydronephrosis a/p leukocytosis- no fevers- repeat blood cultures stat, sputum culture ?reactive to vomiting ?aspiration, colonized with resistant klebsiella (CRE) in urine zosyn/gentamicin to continue contact isolation for VRE overall prognosis is poor
[2019-04-07] MEDS ORDERED: GENTAMICIN INJECTION 300 MG in SODIUM CHLORIDE 100 ML IVPB SCH (22:00)
[2019-04-07] MEDS ORDERED: GENTAMICIN SO4 80 MG/2 ML VIAL IVPB SCH (22:00)
[2019-04-08] MEDS ORDERED: PIPERACILLIN/TAZOBACTAM 3.375 GM VIAL IVPB ONE ×2 (02:32→09:01)
[2019-04-08] MEDS ORDERED: DEXTROSE 5%-WATER - 50 ML IVPB ONE ×2 (02:32→09:01)
[2019-04-08] MEDS: PIPERACILLIN/TAZOB 3.375 GM 3.375 GM in DEXTROSE 5%-WATER - 50 ML IVPB SCH ×2 (02:46→09:51)
[2019-04-08] MEDS: dilTIAZem HCL 30 MG TABLET (FP) NR SCH ×4 (06:31→23:36)
[2019-04-08] MEDS: METOPROLOL TARTRATE 50 MG TABLET (FP) PEG SCH ×4 (06:31→23:35)
[2019-04-08] MEDS: D5-1/2NS+20 MEQ KCL - 20 MEQ/1,000 ML INFUS.BAG IV SCH ×2 (06:32→11:17)
--- NOTE | 2019-04-08 08:30 | PN ---
Progress Note, Physician - Current Medication List Current Medications: Active Medications Diltiazem HCl (Cardizem -) 30 mg NR Q6HPO [facility] Last Admin: 04/08/19 06:31 Dose: 30 mg Piperacillin Sod/Tazobactam (Sod 3.375 gm/ Dextrose) 50 mls @ 100 mls/hr IVPB Q8H-IV [facility]; Protocol Last Admin: 04/08/19 02:46 Dose: 100 mls/hr Potassium Chloride/Dextrose/Sod Cl (D5-1/2ns+20 Meq Kcl -) 20 meq in 1,000 mls @ 83 mls/hr IV ASDIR [facility] Last Admin: 04/08/19 06:32 Dose: 83 mls/hr Gentamicin Sulfate 300 mg/ (Sodium Chloride) 107.5 mls @ 107.5 mls/hr IVPB HS [facility] Lisinopril (Prinivil) 5 mg PEG DAILY [facility] Last Admin: 04/07/19 10:53 Dose: 5 mg Metoprolol Tartrate (Lopressor -) 50 mg PEG Q6HPO [facility] Last Admin: 04/08/19 06:31 Dose: 50 mg Ondansetron HCl (Zofran Injection) 4 mg IVPUSH Q6H PRN PRN Reason: NAUSEA AND/OR VOMITING Pantoprazole Sodium (Protonix Iv) 40 mg IVPUSH DAILY [facility] Sodium Chloride (Normal Saline For Inhalation -) 3 ml IH Q6H PRN PRN Reason: COUGH - Objective Vital Signs: Vital Signs Temperature 98.8 F 04/07/19 06:00 Pulse Rate 98 H 04/08/19 05:30 Respiratory Rate 24 H 04/08/19 05:30 Blood Pressure 100/70 04/08/19 05:30 O2 Sat by Pulse Oximetry (%) 98 04/07/19 21:00 Cardiovascular: Yes: Regular Rate and Rhythm Respiratory: Yes: Regular, CTA Bilaterally Gastrointestinal: Yes: Normal Bowel Sounds, Soft. No: Tenderness Labs: CBC, BMP 04/07/19 10:00 04/07/19 10:00 INR, PTT INR 1.49 (0.83-1.09) H 03/31/19 08:50 Problem List - Problems (1) Ascites Assessment/Plan: paracentesis GI Noted Chemistries pending on ascitic fluid. Note albumin of 1.8 with elevated globulins; also 2+ proteinuria, macrocytic anemia -> raise suspicion of hematologic malignancy. SPEP and serum VIGNESH ordered. Hem noted Now more Distension-R/O SBO CT Abd-Pelv--no obstruction GI f/u noted diet per GI Code(s): R18.8 - OTHER ASCITES (2) Anemia Assessment/Plan: -Gi consult noted -Hem consult noted Code(s): D64.9 - ANEMIA, UNSPECIFIED (3) Sepsis Assessment/Plan: 03/31/19 02:17 Urine - Urine Nephrostomy Tube Left Urine Culture - Preliminary Klebsiella Pneumoniae - Esbl ID eval noted--Follow up for rising wbc--28--25--follow up noted-observe on abx contact isolation Orders 04/08/19 22:00 Gentamicin Injection [Garamycin Injection -] 300 mg Sodium Chloride [Normal Saline 100 ml Mini Bag] 100 ml IVPB HS Orders 04/06/19 18:00 Piperacillin/Tazob 3.375 gm [Zosyn -] 3.375 gm Dextrose 5%-Water - [D5w 50 ml Mini Bag] 50 ml IVPB Q8H-IV Code(s): A41.9 - SEPSIS, UNSPECIFIED ORGANISM (4) Acute and chronic respiratory failure Assessment/Plan: off iv abx per id pleural effusion and bibasilar consolidatin on chest CT pulm on case Code(s): J96.20 - ACUTE AND CHR RESP FAILURE, UNSP W HYPOXIA OR HYPERCAPNIA (5) COPD (chronic obstructive pulmonary disease) Assessment/Plan: ABOVE Code(s): J44.9 - CHRONIC OBSTRUCTIVE PULMONARY DISEASE, UNSPECIFIED (6) Diabetes mellitus Assessment/Plan: BGM Code(s): E11.9 - TYPE 2 DIABETES MELLITUS WITHOUT COMPLICATIONS (7) HTN (hypertension) Assessment/Plan: Vital Signs Period Temp Pulse Resp BP Sys/Kang Pulse Ox Last 24 Hr 97.7 F-98.2 F 90-95 20-26 130-140/78-81 99-100 Code(s): I10 - ESSENTIAL (PRIMARY) HYPERTENSION (8) Atrial flutter Assessment/Plan: controlled on metoprolol and diltiazem--tac cardio follow up noted--monitor Code(s): I48.92 - UNSPECIFIED ATRIAL FLUTTER (9) SBO (small bowel obstruction) Assessment/Plan: CT SCAN noted-no obstruction GI npo--per gI \ivf Code(s): K56.609 - UNSP INTESTNL OBST, UNSP TO PARTIAL VERSUS COMPLETE OBST
[2019-04-08] MEDS: PANTOPRAZOLE SODIUM 40 MG VIAL IVPUSH SCH (09:50)
[2019-04-08] MEDS: LISINOPRIL 5 MG TABLET (FP) PEG SCH (10:10)
--- NOTE | 2019-04-08 12:19 | PN ---
Progress Note (short form) - Note Progress Note: PULMONARY Vented, awake. No fevers recorded. Vital Signs Period Temp Pulse Resp BP Sys/Kang Pulse Ox Last 24 Hr 89-100 18-30 100-134/66-70 98-99 Gen: vented, awake Heart: RRR Lung: decreased breath sounds at the bases Abd: soft, nontender Ext: + edema CBC, BMP 04/07/19 10:00 04/07/19 10:00 Active Medications Diltiazem HCl (Cardizem -) 30 mg NR Q6HPO [facility] Last Admin: 04/08/19 11:16 Dose: 30 mg Piperacillin Sod/Tazobactam (Sod 3.375 gm/ Dextrose) 50 mls @ 100 mls/hr IVPB Q8H-IV [facility]; Protocol Last Admin: 04/08/19 09:51 Dose: 100 mls/hr Potassium Chloride/Dextrose/Sod Cl (D5-1/2ns+20 Meq Kcl -) 20 meq in 1,000 mls @ 83 mls/hr IV ASDIR [facility] Last Admin: 04/08/19 11:17 Dose: Not Given Gentamicin Sulfate 300 mg/ (Sodium Chloride) 107.5 mls @ 107.5 mls/hr IVPB HS [facility] Lisinopril (Prinivil) 5 mg PEG DAILY [facility] Last Admin: 04/08/19 10:10 Dose: 5 mg Metoprolol Tartrate (Lopressor -) 50 mg PEG Q6HPO [facility] Last Admin: 04/08/19 11:16 Dose: 50 mg Ondansetron HCl (Zofran Injection) 4 mg IVPUSH Q6H PRN PRN Reason: NAUSEA AND/OR VOMITING Pantoprazole Sodium (Protonix Iv) 40 mg IVPUSH DAILY [facility] Last Admin: 04/08/19 09:50 Dose: 40 mg Sodium Chloride (Normal Saline For Inhalation -) 3 ml IH Q6H PRN PRN Reason: COUGH A/P Chronic Respiratory Failure r/o UTI/Pneumonia/Sepsis Lactic Acidosis Atrial Flutter with RVR Anemia CAD s/p CABG COPD HTN Hyperlipidemia Ascites - continue antibiotics - protonix - monitor H/H - rate control - anticoagulation if no contraindications - enteral feeds as tolerated - DVT/GI prophylaxis
--- NOTE | 2019-04-08 14:50 | PN ---
Progress Note (short form) - Note Progress Note: afebrile no vomiting Vital Signs Period Temp Pulse Resp BP Sys/Kang Pulse Ox Last 24 Hr 89-100 18-30 100-130/68-80 98-100 cor-rrr lungs decreased bsa t bases abd soft,+gt bilateral PCN ext no edema CBC, BMP 04/07/19 10:00 04/07/19 10:00 Microbiology 04/08/19 07:50 Sputum - Endotrachea Suction/Ventilator Gram Stain - Final 04/06/19 19:30 Blood - Peripheral Venous Blood Culture - Preliminary NO GROWTH OBTAINED AFTER 24 HOURS, INCUBATION TO CONTINUE FOR 4 DAYS. 04/06/19 19:30 Blood - Peripheral Venous Blood Culture - Preliminary NO GROWTH OBTAINED AFTER 24 HOURS, INCUBATION TO CONTINUE FOR 4 DAYS. 04/02/19 14:54 Peritoneal Fluid Gram Stain - Final 04/02/19 14:54 Peritoneal Fluid Body Fluid Culture - Final NO GROWTH OF AEROBIC ORGANISMS AFTER 48 HOURS INCUBATION 04/02/19 14:54 Peritoneal Fluid Anaerobic Culture - Final NO ANAEROBES WERE ISOLATED 04/02/19 14:54 Peritoneal Fluid AFB Smear Concentration - Preliminary 04/02/19 14:54 Peritoneal Fluid Mycobacterial Culture - Preliminary 03/31/19 01:27 Blood - Peripheral Venous Blood Culture - Final NO GROWTH AFTER 5 DAYS INCUBATION 03/31/19 01:27 Blood - Peripheral Venous Blood Culture - Final NO GROWTH AFTER 5 DAYS INCUBATION 04/02/19 14:54 Peritoneal Fluid ROB Preparation - Preliminary 04/02/19 14:54 Peritoneal Fluid Fungal Culture - Preliminary 03/31/19 02:17 Urine - Urine Nephrostomy Tube Left Urine Culture - Final Klebsiella Pneumoniae - Esbl-CRE ct scan bilateral effusions, lower lobe consolidations, ascites, no hydronephrosis a/p ?aspiration pneumonia ?aspiration, colonized with resistant klebsiella (CRE) in urine zosyn/gentamicin to continue -day #3 check labs in am contact isolation for VRE overall prognosis is poor
[2019-04-08] MEDS ORDERED: DEXTROSE 5%-WATER 100 ML IVPB ONE (16:51)
[2019-04-08] MEDS ORDERED: PIPERACILLIN/TAZOBACTAM 4.5 GM VIAL IVPB ONE (16:51)
[2019-04-08] MEDS: PIPERACILLIN/TAZOB 4.5 GM 4.5 GM in DEXTROSE 5%-WATER 100 ML IVPB SCH (17:45)
--- NOTE | 2019-04-08 20:23 | PN.GI ---
GI Progress Note Subjective: No acute events Awake on vent Nods head no when asked about abdominal pain No vomiting reported today - Objective Vital Signs: Vital Signs Temperature 98.8 F 04/07/19 06:00 Pulse Rate 96 H 04/08/19 17:59 Respiratory Rate 22 H 04/08/19 17:59 Blood Pressure 124/74 04/08/19 17:59 O2 Sat by Pulse Oximetry (%) 100 04/08/19 09:00 Constitutional: Calm Eyes: No: Sclera Icterus Cardiovascular: Yes: Regular Rate and Rhythm Respiratory: Yes: Diminished (at bases bilaterally) Gastrointestinal Inspection: Yes: Scars (midline vertical surgical scar, G-Tube in midabdomen, no grimacing upon palpation) ...Auscultate: Yes: Normoactive Bowel Sounds Edema: Yes (B/L LE edema) Labs: CBC, BMP 04/07/19 10:00 04/07/19 10:00 INR, PTT INR 1.49 (0.83-1.09) H 03/31/19 08:50 Problem List - Problems (1) Coffee ground emesis Assessment/Plan: No further vomiting. Last GI note from Dr. Salazar did not say NPO, stated to resume tube feeds at low rate and advance as tolerated Awaiting previous endoscopic records from [facility] Code(s): K92.0 - HEMATEMESIS
[2019-04-08] MEDS: GENTAMICIN INJECTION 300 MG in SODIUM CHLORIDE 100 ML IVPB SCH (21:58)
[2019-04-09] MEDS ORDERED: PIPERACILLIN/TAZOBACTAM 4.5 GM VIAL IVPB ONE ×3 (01:53→17:30)
[2019-04-09] MEDS ORDERED: DEXTROSE 5%-WATER 100 ML IVPB ONE ×3 (01:53→17:30)
[2019-04-09] MEDS: D5-1/2NS+20 MEQ KCL - 20 MEQ/1,000 ML INFUS.BAG IV SCH ×2 (02:37→10:54)
[2019-04-09] MEDS: PIPERACILLIN/TAZOB 4.5 GM 4.5 GM in DEXTROSE 5%-WATER 100 ML IVPB SCH ×3 (02:37→17:58)
[2019-04-09] MEDS: dilTIAZem HCL 30 MG TABLET (FP) NR SCH ×3 (06:01→17:59)
[2019-04-09] MEDS: METOPROLOL TARTRATE 50 MG TABLET (FP) PEG SCH ×3 (06:02→17:59)
[2019-04-09 08:33] LABS: BASO % 0.1 % (0-2.0); EOS % 0.7 % (0-4.5); HEMATOCRIT 29.6 % (35.4-49); HEMOGLOBIN 9.3 GM/dL (11.7-16.9); LYMPH % 2.8 % (8-40); MCH 31.1 pg (25.7-33.7); MCHC 31.3 g/dl (32.0-35.9); MEAN CELL VOLUME 99.4 fl (80-96); MEAN PLT VOLUME 9.5 fl (7.5-11.1); MONO % 4.3 % (3.8-10.2); NEUT % 92.1 % (42.8-82.8); PLATELET COUNT 175 K/MM3 (134-434); RBC 2.98 M/mm3 (4.00-5.60); RDW 20.8 % (11.9-15.9); WHITE BLOOD COUNT 19.1 K/mm3 (4.0-10.0)
[2019-04-09 08:45] LABS: BLOOD UREA NITROGEN 21.4 mg/dL (7-18); CALCIUM 7.6 mg/dL (8.5-10.1); POTASSIUM 4.2 mmol/L (3.5-5.1)
--- NOTE | 2019-04-09 09:31 | PN ---
Progress Note, Physician Chief Complaint: Acute on Chronic Respiratory Failure UTI Ascites History of Present Illness: Previous notes and events reviewed awake and alert NAD no further reports of vomiting able to answer yes/no questions denies chest pain - Current Medication List Current Medications: Active Medications Diltiazem HCl (Cardizem -) 30 mg NR Q6HPO [facility] Last Admin: 04/09/19 06:01 Dose: 30 mg Potassium Chloride/Dextrose/Sod Cl (D5-1/2ns+20 Meq Kcl -) 20 meq in 1,000 mls @ 83 mls/hr IV ASDIR [facility] Last Admin: 04/09/19 02:37 Dose: 83 mls/hr Gentamicin Sulfate 300 mg/ (Sodium Chloride) 107.5 mls @ 107.5 mls/hr IVPB HS [facility] Last Admin: 04/08/19 21:58 Dose: 107.5 mls/hr Piperacillin Sod/Tazobactam (Sod 4.5 gm/ Dextrose) 100 mls @ 200 mls/hr IVPB Q8H-IV [facility]; Protocol Last Admin: 04/09/19 02:37 Dose: 200 mls/hr Lisinopril (Prinivil) 5 mg PEG DAILY [facility] Last Admin: 04/08/19 10:10 Dose: 5 mg Metoprolol Tartrate (Lopressor -) 50 mg PEG Q6HPO [facility] Last Admin: 04/09/19 06:02 Dose: 50 mg Ondansetron HCl (Zofran Injection) 4 mg IVPUSH Q6H PRN PRN Reason: NAUSEA AND/OR VOMITING Pantoprazole Sodium (Protonix Iv) 40 mg IVPUSH DAILY [facility] Last Admin: 04/08/19 09:50 Dose: 40 mg Sodium Chloride (Normal Saline For Inhalation -) 3 ml IH Q6H PRN PRN Reason: COUGH - Objective Vital Signs: Vital Signs Temperature 98.8 F 04/07/19 06:00 Pulse Rate 92 H 04/09/19 08:26 Respiratory Rate 22 H 04/09/19 08:24 Blood Pressure 110/60 04/09/19 05:20 O2 Sat by Pulse Oximetry (%) 99 04/09/19 08:26 Constitutional: Yes: No Distress, Calm Eyes: Yes: Conjunctiva Clear HENT: Yes: Atraumatic Neck: Yes: Other (trach) Cardiovascular: Yes: Tachycardia Respiratory: Yes: Regular, Mechanically Ventilated, Wheezes Gastrointestinal: Yes: Normal Bowel Sounds, Soft, Other (G tube) Genitourinary: Yes: Other (B/L nephrostomy tube) Musculoskeletal: Yes: Muscle Weakness Edema: Yes (b/l upper extremity) Edema: LLE: 2+, RLE: 2+ Integumentary: Yes: Pressure Ulcer Neurological: Yes: Alert, Pre-Existing Deficit Psychiatric: Yes: Alert Labs: CBC, BMP 04/09/19 07:40 04/09/19 06:00 INR, PTT INR 1.49 (0.83-1.09) H 03/31/19 08:50 Microbiology 04/08/19 07:50 Sputum - Endotrachea Suction/Ventilator Gram Stain - Final 04/08/19 07:50 Sputum - Endotrachea Suction/Ventilator Sputum Culture - Preliminary Presumptive Ps Aeruginosa Presumptive Mrsa (Pbp2a Pos) 04/06/19 19:30 Blood - Peripheral Venous Blood Culture - Preliminary NO GROWTH OBTAINED AFTER 48 HOURS, INCUBATION TO CONTINUE FOR 3 DAYS. 04/06/19 19:30 Blood - Peripheral Venous Blood Culture - Preliminary NO GROWTH OBTAINED AFTER 48 HOURS, INCUBATION TO CONTINUE FOR 3 DAYS. 04/02/19 14:54 Peritoneal Fluid Gram Stain - Final 04/02/19 14:54 Peritoneal Fluid Body Fluid Culture - Final NO GROWTH OF AEROBIC ORGANISMS AFTER 48 HOURS INCUBATION 04/02/19 14:54 Peritoneal Fluid Anaerobic Culture - Final NO ANAEROBES WERE ISOLATED 04/02/19 14:54 Peritoneal Fluid AFB Smear Concentration - Preliminary 04/02/19 14:54 Peritoneal Fluid Mycobacterial Culture - Preliminary 03/31/19 01:27 Blood - Peripheral Venous Blood Culture - Final NO GROWTH AFTER 5 DAYS INCUBATION 03/31/19 01:27 Blood - Peripheral Venous Blood Culture - Final NO GROWTH AFTER 5 DAYS INCUBATION 04/02/19 14:54 Peritoneal Fluid ROB Preparation - Preliminary 04/02/19 14:54 Peritoneal Fluid Fungal Culture - Preliminary 03/31/19 02:17 Urine - Urine Nephrostomy Tube Left Urine Culture - Final Klebsiella Pneumoniae - Esbl Problem List - Problems (1) Acute and chronic respiratory failure Assessment/Plan: -Pulm on board -Mechanically Ventilated -keep SpO2 >90% -CXR shows cardiomegaly, left basilar compressive atelectasis, left pleural effusion, right pleural effusion -Sputum Culture positive for MRSA Code(s): J96.20 - ACUTE AND CHR RESP FAILURE, UNSP W HYPOXIA OR HYPERCAPNIA (2) Anemia Assessment/Plan: -Hg 9.3 -monitor Hg daily and transfuse for Hg <7.0 to avoid fluid overload -GI and Hematology on board -Anemia profile shows low Iron, low TIBC, high Ferritin Code(s): D64.9 - ANEMIA, UNSPECIFIED (3) Atrial flutter Assessment/Plan: -Metoprolol and Cardizem -Cardiology on board Code(s): I48.92 - UNSPECIFIED ATRIAL FLUTTER (4) COPD (chronic obstructive pulmonary disease) Assessment/Plan: -Pulm on board -Mechanically Ventilated -keep SpO2 >90% -CXR shows cardiomegaly, left basilar compressive atelectasis, left pleural effusion, right pleural effusion Code(s): J44.9 - CHRONIC OBSTRUCTIVE PULMONARY DISEASE, UNSPECIFIED (5) Diabetes mellitus Assessment/Plan: -[facility] ACHS -ISS Code(s): E11.9 - TYPE 2 DIABETES MELLITUS WITHOUT COMPLICATIONS (6) GI bleed Assessment/Plan: -Hg 9.3 -GI on board -no reports of hematemesis or melena -Pantoprazole -as per GI note patient family states patient had EGD within year, no reports to review Code(s): K92.2 - GASTROINTESTINAL HEMORRHAGE, UNSPECIFIED (7) HTN (hypertension) Assessment/Plan: -Lisinopril Code(s): I10 - ESSENTIAL (PRIMARY) HYPERTENSION (8) SBO (small bowel obstruction) Assessment/Plan: -CTAP shows no evidence of bowel obstruction -GI on board Code(s): K56.609 - UNSP INTESTNL OBST, UNSP TO PARTIAL VERSUS COMPLETE OBST (9) Ascites Assessment/Plan: -s/p paracentesis -Ascites Fluid specimen noted albumin 1.8 with elevated globulins, 2+ proteinuria, macrocytic anemia raise suspicion for hematologic malingnancy -Hematology on board Code(s): R18.8 - OTHER ASCITES (10) Sepsis Assessment/Plan: -ID on board -Leukocytosis -afebrile -Sputum Culture positive for MRSA -BC neg -UC positive ESBL, Klebsiella -Gentamicin and Zosyn -CXR shows cardiomegaly, left basilar compressive atelectasis, left pleural effusion, right pleural effusion Code(s): A41.9 - SEPSIS, UNSPECIFIED ORGANISM Assessment/Plan see problem list dvt ppx
[2019-04-09] MEDS: PANTOPRAZOLE SODIUM 40 MG VIAL IVPUSH SCH (10:54)
[2019-04-09] MEDS: LISINOPRIL 5 MG TABLET (FP) PEG SCH (10:54)
--- NOTE | 2019-04-09 11:30 | PN ---
Progress Note (short form) - Note Progress Note: Vented, awake in NAD. No fevers recorded. Intake & Output 04/06/19 04/07/19 04/08/19 04/09/19 23:59 23:59 23:59 23:59 Intake Total 1810 100 0 1000 Output Total 500 725 575 250 Balance 8129 -843 -953 750 Last Vital Signs Temp Pulse Resp BP Pulse Ox 98.8 F 92 H 22 H 110/60 99 04/07/19 06:00 04/09/19 08:26 04/09/19 08:24 04/09/19 05:20 04/09/19 08:26 Active Medications Diltiazem HCl (Cardizem -) 30 mg NR Q6HPO [facility] Last Admin: 04/09/19 06:01 Dose: 30 mg Potassium Chloride/Dextrose/Sod Cl (D5-1/2ns+20 Meq Kcl -) 20 meq in 1,000 mls @ 83 mls/hr IV ASDIR [facility] Last Admin: 04/09/19 10:54 Dose: 83 mls/hr Gentamicin Sulfate 300 mg/ (Sodium Chloride) 107.5 mls @ 107.5 mls/hr IVPB HS [facility] Last Admin: 04/08/19 21:58 Dose: 107.5 mls/hr Piperacillin Sod/Tazobactam (Sod 4.5 gm/ Dextrose) 100 mls @ 200 mls/hr IVPB Q8H-IV [facility]; Protocol Last Admin: 04/09/19 10:54 Dose: 200 mls/hr Insulin Aspart (Novolog Vial Sliding Scale -) 1 vial SQ ACHS [facility]; Protocol Lisinopril (Prinivil) 5 mg PEG DAILY [facility] Last Admin: 04/09/19 10:54 Dose: 5 mg Metoprolol Tartrate (Lopressor -) 50 mg PEG Q6HPO [facility] Last Admin: 04/09/19 06:02 Dose: 50 mg Ondansetron HCl (Zofran Injection) 4 mg IVPUSH Q6H PRN PRN Reason: NAUSEA AND/OR VOMITING Pantoprazole Sodium (Protonix Iv) 40 mg IVPUSH DAILY [facility] Last Admin: 04/09/19 10:54 Dose: 40 mg Sodium Chloride (Normal Saline For Inhalation -) 3 ml IH Q6H PRN PRN Reason: COUGH Gen: vented, awake Heart: RRR Lung: decreased breath sounds at the bases Abd: soft, nontender Ext: + edema Laboratory Results - last 24 hr 04/08/19 04/08/19 04/08/19 12:53 17:48 23:00 WBC RBC Hgb Hct MCV MCH MCHC RDW Plt Count MPV Absolute Neuts (auto) Neutrophils % Lymphocytes % Monocytes % Eosinophils % Basophils % Nucleated RBC % Sodium Potassium Chloride Carbon Dioxide Anion Gap BUN Creatinine Est GFR (CKD-EPI)AfAm Est GFR (CKD-EPI)NonAf POC Glucometer 97 95 86 Random Glucose Calcium 04/09/19 04/09/19 04/09/19 06:00 06:04 07:40 WBC 19.1 H RBC 2.98 L Hgb 9.3 L Hct 29.6 L MCV 99.4 H MCH 31.1 MCHC 31.3 L RDW 20.8 H Plt Count 175 MPV 9.5 Absolute Neuts (auto) 17.6 H Neutrophils % 92.1 H Lymphocytes % 2.8 L D Monocytes % 4.3 Eosinophils % 0.7 Basophils % 0.1 Nucleated RBC % 0 Sodium 147 H Potassium 4.2 Chloride 116 H Carbon Dioxide 25 Anion Gap 5 L BUN 21.4 H Creatinine 1.0 Est GFR (CKD-EPI)AfAm 80.88 Est GFR (CKD-EPI)NonAf 69.78 POC Glucometer 101 Random Glucose 92 Calcium 7.6 L A/P Chronic Respiratory Failure r/o UTI/Pneumonia/Sepsis Lactic Acidosis Atrial Flutter with RVR Anemia CAD s/p CABG COPD HTN Hyperlipidemia Ascites - continue antibiotics - protonix - monitor H/H - rate control - anticoagulation if no contraindications - enteral feeds as tolerated - DVT/GI prophylaxis Dr Castro
[2019-04-09 11:34] LABS: ANISOCYTOSIS 1+; MACROCYTOSIS 1+; PLATELET ESTIMATE NORMAL
[2019-04-09] MEDS: INSULIN SLIDING SCALE (NOVOLOG) 1 VIAL SQ SCH ×3 (12:22→22:18)
[2019-04-09] MEDS ORDERED: PT OWN MED DRAWER 7, Y5N ONE (22:19)
[2019-04-09] MEDS: GENTAMICIN INJECTION 300 MG in SODIUM CHLORIDE 100 ML IVPB SCH (22:22)
[2019-04-10] MEDS ORDERED: PIPERACILLIN/TAZOBACTAM 4.5 GM VIAL IVPB ONE ×3 (00:58→17:40)
[2019-04-10] MEDS ORDERED: PT OWN MED DRAWER 7, Y5N ONE ×7 (00:58→21:32)
[2019-04-10] MEDS ORDERED: DEXTROSE 5%-WATER 100 ML IVPB ONE ×3 (00:58→17:40)
[2019-04-10] MEDS: METOPROLOL TARTRATE 50 MG TABLET (FP) PEG SCH ×5 (01:04→23:06)
[2019-04-10] MEDS: dilTIAZem HCL 30 MG TABLET (FP) NR SCH ×5 (01:04→23:03)
[2019-04-10] MEDS: PIPERACILLIN/TAZOB 4.5 GM 4.5 GM in DEXTROSE 5%-WATER 100 ML IVPB SCH ×3 (01:10→17:48)
[2019-04-10] MEDS: D5-1/2NS+20 MEQ KCL - 20 MEQ/1,000 ML INFUS.BAG IV SCH ×2 (03:30→12:20)
[2019-04-10] MEDS: INSULIN SLIDING SCALE (NOVOLOG) 1 VIAL SQ SCH ×4 (07:50→22:56)
[2019-04-10 08:58] LABS: HEMATOCRIT 26.6 % (35.4-49); HEMOGLOBIN 8.3 GM/dL (11.7-16.9); MCH 30.9 pg (25.7-33.7); MEAN CELL VOLUME 99.5 fl (80-96); MEAN PLT VOLUME 9.6 fl (7.5-11.1); PLATELET COUNT 172 K/MM3 (134-434); RBC 2.68 M/mm3 (4.00-5.60); RDW 21.2 % (11.9-15.9); WHITE BLOOD COUNT 19.7 K/mm3 (4.0-10.0)
[2019-04-10 09:36] LABS: ALBUMIN 1.2 g/dl (3.4-5.0); BILIRUBIN,TOTAL 0.6 mg/dL (0.2-1); CALCIUM 7.2 mg/dL (8.5-10.1); POTASSIUM 4.1 mmol/L (3.5-5.1); TOT PROT 5.8 g/dl (6.4-8.2)
--- NOTE | 2019-04-10 11:51 | PN ---
Progress Note, Physician Chief Complaint: Acute on Chronic Respiratory Failure UTI Ascites - Current Medication List Current Medications: Active Medications Diltiazem HCl (Cardizem -) 30 mg NR Q6HPO [facility] Last Admin: 04/10/19 05:54 Dose: 30 mg Potassium Chloride/Dextrose/Sod Cl (D5-1/2ns+20 Meq Kcl -) 20 meq in 1,000 mls @ 83 mls/hr IV ASDIR [facility] Last Admin: 04/10/19 03:30 Dose: 83 mls/hr Gentamicin Sulfate 300 mg/ (Sodium Chloride) 107.5 mls @ 107.5 mls/hr IVPB HS [facility] Last Admin: 04/09/19 22:22 Dose: 107.5 mls/hr Piperacillin Sod/Tazobactam (Sod 4.5 gm/ Dextrose) 100 mls @ 200 mls/hr IVPB Q8H-IV [facility]; Protocol Last Admin: 04/10/19 01:10 Dose: 200 mls/hr Insulin Aspart (Novolog Vial Sliding Scale -) 1 vial SQ ACHS [facility]; Protocol Last Admin: 04/10/19 07:50 Dose: Not Given Lisinopril (Prinivil) 5 mg PEG DAILY [facility] Last Admin: 04/09/19 10:54 Dose: 5 mg Metoprolol Tartrate (Lopressor -) 50 mg PEG Q6HPO [facility] Last Admin: 04/10/19 05:54 Dose: 50 mg Ondansetron HCl (Zofran Injection) 4 mg IVPUSH Q6H PRN PRN Reason: NAUSEA AND/OR VOMITING Pantoprazole Sodium (Protonix Iv) 40 mg IVPUSH DAILY [facility] Last Admin: 04/09/19 10:54 Dose: 40 mg Sodium Chloride (Normal Saline For Inhalation -) 3 ml IH Q6H PRN PRN Reason: COUGH Last Admin: 04/10/19 04:00 Dose: 3 ml - Objective Vital Signs: Vital Signs Temperature 98.7 F 04/10/19 09:00 Pulse Rate 90 04/10/19 09:00 Respiratory Rate 22 H 04/10/19 09:00 Blood Pressure 110/65 04/10/19 09:00 O2 Sat by Pulse Oximetry (%) 100 04/10/19 09:00 Constitutional: Yes: Well Nourished, No Distress, Calm Cardiovascular: Yes: Regular Rate and Rhythm Respiratory: Yes: Mechanically Ventilated, Rhonchi (diffuse) Gastrointestinal: Yes: WNL Musculoskeletal: Yes: Muscle Weakness Extremities: Yes: WNL Edema: Yes Edema: LLE: 2+, RLE: 2+ Peripheral Pulses WNL: Yes Neurological: Yes: Alert, Pre-Existing Deficit Psychiatric: Yes: Alert Labs: CBC, BMP 04/10/19 08:03 04/10/19 08:03 INR, PTT INR 1.49 (0.83-1.09) H 03/31/19 08:50 Assessment/Plan (1) Acute and chronic respiratory failure Assessment/Plan: -Pulm on board -Mechanically Ventilated -keep SpO2 >90% -CXR shows cardiomegaly, left basilar compressive atelectasis, left pleural effusion, right pleural effusion -Sputum Culture positive for MRSA Code(s): J96.20 - ACUTE AND CHR RESP FAILURE, UNSP W HYPOXIA OR HYPERCAPNIA (2) Anemia Assessment/Plan: -monitor Hg daily and transfuse for Hg <7.0 to avoid fluid overload -GI and Hematology on board -Anemia profile shows low Iron, low TIBC, high Ferritin Code(s): D64.9 - ANEMIA, UNSPECIFIED (3) Atrial flutter Assessment/Plan: -Metoprolol and Cardizem -Cardiology on board Code(s): I48.92 - UNSPECIFIED ATRIAL FLUTTER (4) COPD (chronic obstructive pulmonary disease) Assessment/Plan: -Pulm on board -Mechanically Ventilated -keep SpO2 >90% -CXR shows cardiomegaly, left basilar compressive atelectasis, left pleural effusion, right pleural effusion Code(s): J44.9 - CHRONIC OBSTRUCTIVE PULMONARY DISEASE, UNSPECIFIED (5) Diabetes mellitus Assessment/Plan: -[facility] ACHS -ISS Code(s): E11.9 - TYPE 2 DIABETES MELLITUS WITHOUT COMPLICATIONS (6) GI bleed Assessment/Plan: -GI on board -no reports of hematemesis or melena -Pantoprazole -as per GI note patient family states patient had EGD within year, no reports to review Code(s): K92.2 - GASTROINTESTINAL HEMORRHAGE, UNSPECIFIED (7) HTN (hypertension) Assessment/Plan: -Lisinopril Code(s): I10 - ESSENTIAL (PRIMARY) HYPERTENSION (8) SBO (small bowel obstruction) Assessment/Plan: -CTAP shows no evidence of bowel obstruction -GI on board Code(s): K56.609 - UNSP INTESTNL OBST, UNSP TO PARTIAL VERSUS COMPLETE OBST (9) Ascites Assessment/Plan: -s/p paracentesis -Ascites Fluid specimen noted albumin 1.8 with elevated globulins, 2+ proteinuria, macrocytic anemia raise suspicion for hematologic malingnancy -Hematology on board Code(s): R18.8 - OTHER ASCITES (10) Sepsis Assessment/Plan: -ID on board -Leukocytosis -afebrile -Sputum Culture positive for MRSA -BC neg -UC positive ESBL, Klebsiella -Gentamicin and Zosyn -CXR shows cardiomegaly, left basilar compressive atelectasis, left pleural effusion, right pleural effusion Code(s): A41.9 - SEPSIS, UNSPECIFIED ORGANISM Assessment/Plan see problem list dvt ppx
[2019-04-10] MEDS: PANTOPRAZOLE SODIUM 40 MG VIAL IVPUSH SCH (12:20)
[2019-04-10] MEDS: LISINOPRIL 5 MG TABLET (FP) PEG SCH (12:20)
--- NOTE | 2019-04-10 14:00 | PN ---
Progress Note (short form) - Note Progress Note: PULMONARY Vented, awake. No fevers recorded. Vital Signs Period Temp Pulse Resp BP Sys/Kang Pulse Ox Last 24 Hr 98.4 F-98.7 F 88-96 17-33 105-145/60-81 99-100 Gen: vented, awake Heart: RRR Lung: decreased breath sounds at the bases Abd: soft, nontender Ext: + edema CBC, BMP 04/10/19 08:03 04/10/19 08:03 Active Medications Diltiazem HCl (Cardizem -) 30 mg NR Q6HPO [facility] Last Admin: 04/10/19 13:51 Dose: 30 mg Potassium Chloride/Dextrose/Sod Cl (D5-1/2ns+20 Meq Kcl -) 20 meq in 1,000 mls @ 83 mls/hr IV ASDIR [facility] Last Admin: 04/10/19 12:20 Dose: 83 mls/hr Gentamicin Sulfate 300 mg/ (Sodium Chloride) 107.5 mls @ 107.5 mls/hr IVPB HS [facility] Last Admin: 04/09/19 22:22 Dose: 107.5 mls/hr Piperacillin Sod/Tazobactam (Sod 4.5 gm/ Dextrose) 100 mls @ 200 mls/hr IVPB Q8H-IV [facility]; Protocol Last Admin: 04/10/19 12:20 Dose: 200 mls/hr Insulin Aspart (Novolog Vial Sliding Scale -) 1 vial SQ ACHS [facility]; Protocol Last Admin: 04/10/19 12:35 Dose: Not Given Lisinopril (Prinivil) 5 mg PEG DAILY [facility] Last Admin: 04/10/19 12:20 Dose: 5 mg Metoprolol Tartrate (Lopressor -) 50 mg PEG Q6HPO [facility] Last Admin: 04/10/19 13:51 Dose: 50 mg Ondansetron HCl (Zofran Injection) 4 mg IVPUSH Q6H PRN PRN Reason: NAUSEA AND/OR VOMITING Pantoprazole Sodium (Protonix Iv) 40 mg IVPUSH DAILY [facility] Last Admin: 04/10/19 12:20 Dose: 40 mg Sodium Chloride (Normal Saline For Inhalation -) 3 ml IH Q6H PRN PRN Reason: COUGH Last Admin: 04/10/19 04:00 Dose: 3 ml A/P Chronic Respiratory Failure r/o UTI/Pneumonia/Sepsis Lactic Acidosis Atrial Flutter with RVR Anemia CAD s/p CABG COPD HTN Hyperlipidemia Ascites - continue antibiotics - protonix - monitor H/H - rate control - anticoagulation if no contraindications - enteral feeds as tolerated - DVT/GI prophylaxis
[2019-04-10] MEDS: GENTAMICIN INJECTION 300 MG in SODIUM CHLORIDE 100 ML IVPB SCH (22:56)
[2019-04-11] MEDS ORDERED: DEXTROSE 5%-WATER 100 ML IVPB ONE ×3 (01:22→17:06)
[2019-04-11] MEDS ORDERED: PIPERACILLIN/TAZOBACTAM 4.5 GM VIAL IVPB ONE ×3 (01:22→17:06)
[2019-04-11] MEDS: PIPERACILLIN/TAZOB 4.5 GM 4.5 GM in DEXTROSE 5%-WATER 100 ML IVPB SCH ×3 (01:34→17:24)
[2019-04-11] MEDS: D5-1/2NS+20 MEQ KCL - 20 MEQ/1,000 ML INFUS.BAG IV SCH ×2 (02:45→10:59)
[2019-04-11] MEDS: dilTIAZem HCL 30 MG TABLET (FP) NR SCH ×4 (06:26→23:10)
[2019-04-11] MEDS: METOPROLOL TARTRATE 50 MG TABLET (FP) PEG SCH ×4 (06:27→23:10)
[2019-04-11] MEDS: INSULIN SLIDING SCALE (NOVOLOG) 1 VIAL SQ SCH ×4 (06:43→23:40)
[2019-04-11] MEDS ORDERED: PT OWN MED DRAWER 7, Y5N ONE (07:23)
--- NOTE | 2019-04-11 10:05 | PN ---
Progress Note, Physician Chief Complaint: Acute on Chronic Respiratory Failure UTI Ascites History of Present Illness: NAD mechanical vent - Current Medication List Current Medications: Active Medications Diltiazem HCl (Cardizem -) 30 mg NR Q6HPO [facility] Last Admin: 04/11/19 06:26 Dose: 30 mg Potassium Chloride/Dextrose/Sod Cl (D5-1/2ns+20 Meq Kcl -) 20 meq in 1,000 mls @ 83 mls/hr IV ASDIR [facility] Last Admin: 04/11/19 02:45 Dose: 83 mls/hr Gentamicin Sulfate 300 mg/ (Sodium Chloride) 107.5 mls @ 107.5 mls/hr IVPB HS [facility] Last Admin: 04/10/19 22:56 Dose: 107.5 mls/hr Piperacillin Sod/Tazobactam (Sod 4.5 gm/ Dextrose) 100 mls @ 200 mls/hr IVPB Q8H-IV [facility]; Protocol Last Admin: 04/11/19 01:34 Dose: 200 mls/hr Insulin Aspart (Novolog Vial Sliding Scale -) 1 vial SQ ACHS [facility]; Protocol Last Admin: 04/11/19 06:43 Dose: Not Given Lisinopril (Prinivil) 5 mg PEG DAILY [facility] Last Admin: 04/10/19 12:20 Dose: 5 mg Metoprolol Tartrate (Lopressor -) 50 mg PEG Q6HPO [facility] Last Admin: 04/11/19 06:27 Dose: 50 mg Ondansetron HCl (Zofran Injection) 4 mg IVPUSH Q6H PRN PRN Reason: NAUSEA AND/OR VOMITING Pantoprazole Sodium (Protonix Iv) 40 mg IVPUSH DAILY [facility] Last Admin: 04/10/19 12:20 Dose: 40 mg Sodium Chloride (Normal Saline For Inhalation -) 3 ml IH Q6H PRN PRN Reason: COUGH Last Admin: 04/10/19 04:00 Dose: 3 ml - Objective Vital Signs: Vital Signs Temperature 98.5 F 04/10/19 22:30 Pulse Rate 92 H 04/10/19 22:30 Respiratory Rate 22 H 04/11/19 04:30 Blood Pressure 110/70 04/10/19 22:30 O2 Sat by Pulse Oximetry (%) 100 04/10/19 21:00 Constitutional: Yes: Well Nourished, No Distress, Calm Cardiovascular: Yes: Regular Rate and Rhythm Respiratory: Yes: Mechanically Ventilated, Rhonchi (diffuse) Gastrointestinal: Yes: Normal Bowel Sounds, Soft Genitourinary: Yes: Incontinence Musculoskeletal: Yes: Other (generalized atrophy) Extremities: Yes: WNL Edema: No Peripheral Pulses WNL: Yes Neurological: Yes: Pre-Existing Deficit Labs: CBC, BMP 04/10/19 08:03 04/10/19 08:03 INR, PTT INR 1.49 (0.83-1.09) H 03/31/19 08:50 Assessment/Plan (1) Acute and chronic respiratory failure Assessment/Plan: -Pulm on board -Mechanically Ventilated -keep SpO2 >90% -CXR shows cardiomegaly, left basilar compressive atelectasis, left pleural effusion, right pleural effusion -Sputum Culture positive for MRSA Code(s): J96.20 - ACUTE AND CHR RESP FAILURE, UNSP W HYPOXIA OR HYPERCAPNIA (2) Anemia Assessment/Plan: -monitor Hg daily and transfuse for Hg <7.0 to avoid fluid overload -GI and Hematology on board -Anemia profile shows low Iron, low TIBC, high Ferritin Code(s): D64.9 - ANEMIA, UNSPECIFIED (3) Atrial flutter Assessment/Plan: -Metoprolol and Cardizem -Cardiology on board Code(s): I48.92 - UNSPECIFIED ATRIAL FLUTTER (4) COPD (chronic obstructive pulmonary disease) Assessment/Plan: -Pulm on board -Mechanically Ventilated -keep SpO2 >90% -CXR shows cardiomegaly, left basilar compressive atelectasis, left pleural effusion, right pleural effusion Code(s): J44.9 - CHRONIC OBSTRUCTIVE PULMONARY DISEASE, UNSPECIFIED (5) Diabetes mellitus Assessment/Plan: -[facility] ACHS -ISS Code(s): E11.9 - TYPE 2 DIABETES MELLITUS WITHOUT COMPLICATIONS (6) GI bleed Assessment/Plan: -GI on board -no reports of hematemesis or melena -Pantoprazole -as per GI note patient family states patient had EGD within year, no reports to review Code(s): K92.2 - GASTROINTESTINAL HEMORRHAGE, UNSPECIFIED (7) HTN (hypertension) Assessment/Plan: -Lisinopril Code(s): I10 - ESSENTIAL (PRIMARY) HYPERTENSION (8) SBO (small bowel obstruction) Assessment/Plan: -CTAP shows no evidence of bowel obstruction -GI on board Code(s): K56.609 - UNSP INTESTNL OBST, UNSP TO PARTIAL VERSUS COMPLETE OBST (9) Ascites Assessment/Plan: -s/p paracentesis -Ascites Fluid specimen noted albumin 1.8 with elevated globulins, 2+ proteinuria, macrocytic anemia raise suspicion for hematologic malingnancy -Hematology on board Code(s): R18.8 - OTHER ASCITES (10) Sepsis Assessment/Plan: -ID on board -Leukocytosis -afebrile -Sputum Culture positive for MRSA -BC neg -UC positive ESBL, Klebsiella -Gentamicin and Zosyn -CXR shows cardiomegaly, left basilar compressive atelectasis, left pleural effusion, right pleural effusion Code(s): A41.9 - SEPSIS, UNSPECIFIED ORGANISM Assessment/Plan see problem list dvt ppx
[2019-04-11] MEDS: PANTOPRAZOLE SODIUM 40 MG VIAL IVPUSH SCH (11:00)
[2019-04-11] MEDS: LISINOPRIL 5 MG TABLET (FP) PEG SCH (11:00)
[2019-04-11 11:17] LABS: BASO % 0.2 % (0-2.0); EOS % 1.9 % (0-4.5); HEMATOCRIT 28.5 % (35.4-49); HEMOGLOBIN 8.6 GM/dL (11.7-16.9); LYMPH % 3.3 % (8-40); MCH 30.8 pg (25.7-33.7); MCHC 30.3 g/dl (32.0-35.9); MEAN CELL VOLUME 101.6 fl (80-96); MEAN PLT VOLUME 9.3 fl (7.5-11.1); MONO % 4.2 % (3.8-10.2); NEUT % 90.4 % (42.8-82.8); PLATELET COUNT 191 K/MM3 (134-434); RDW 20.8 % (11.9-15.9)
[2019-04-11 11:41] LABS: ALBUMIN 1.2 g/dl (3.4-5.0); BILIRUBIN,TOTAL 0.6 mg/dL (0.2-1); BLOOD UREA NITROGEN 19.3 mg/dL (7-18); CALCIUM 7.3 mg/dL (8.5-10.1); TOT PROT 6.2 g/dl (6.4-8.2)
--- NOTE | 2019-04-11 12:24 | PN ---
Progress Note (short form) - Note Progress Note: PULMONARY Vented, awake. No fevers recorded. Vital Signs Period Temp Pulse Resp BP Sys/Kang Pulse Ox Last 24 Hr 98.4 F-98.7 F 87-98 20-24 110-139/62-83 100-100 Gen: vented, awake Heart: RRR Lung: decreased breath sounds at the bases Abd: soft, nontender Ext: + edema CBC, BMP 04/11/19 10:30 04/11/19 10:30 Active Medications Diltiazem HCl (Cardizem -) 30 mg NR Q6HPO [facility] Last Admin: 04/11/19 11:01 Dose: 30 mg Potassium Chloride/Dextrose/Sod Cl (D5-1/2ns+20 Meq Kcl -) 20 meq in 1,000 mls @ 83 mls/hr IV ASDIR [facility] Last Admin: 04/11/19 10:59 Dose: 83 mls/hr Gentamicin Sulfate 300 mg/ (Sodium Chloride) 107.5 mls @ 107.5 mls/hr IVPB HS [facility] Last Admin: 04/10/19 22:56 Dose: 107.5 mls/hr Piperacillin Sod/Tazobactam (Sod 4.5 gm/ Dextrose) 100 mls @ 200 mls/hr IVPB Q8H-IV [facility]; Protocol Last Admin: 04/11/19 10:59 Dose: 200 mls/hr Insulin Aspart (Novolog Vial Sliding Scale -) 1 vial SQ ACHS [facility]; Protocol Last Admin: 04/11/19 10:59 Dose: Not Given Lisinopril (Prinivil) 5 mg PEG DAILY [facility] Last Admin: 04/11/19 11:00 Dose: 5 mg Metoprolol Tartrate (Lopressor -) 50 mg PEG Q6HPO [facility] Last Admin: 04/11/19 11:04 Dose: 50 mg Ondansetron HCl (Zofran Injection) 4 mg IVPUSH Q6H PRN PRN Reason: NAUSEA AND/OR VOMITING Pantoprazole Sodium (Protonix Iv) 40 mg IVPUSH DAILY [facility] Last Admin: 04/11/19 11:00 Dose: 40 mg Sodium Chloride (Normal Saline For Inhalation -) 3 ml IH Q6H PRN PRN Reason: COUGH Last Admin: 04/10/19 04:00 Dose: 3 ml A/P Chronic Respiratory Failure r/o UTI/Pneumonia/Sepsis Lactic Acidosis Atrial Flutter with RVR Anemia CAD s/p CABG COPD HTN Hyperlipidemia Ascites - continue antibiotics - protonix - monitor H/H - rate control - anticoagulation if no contraindications - enteral feeds as tolerated - DVT/GI prophylaxis
[2019-04-11 12:25] LABS: ANISOCYTOSIS 1+; MACROCYTOSIS 0; PLATELET ESTIMATE NORMAL
[2019-04-11] MEDS: GENTAMICIN INJECTION 300 MG in SODIUM CHLORIDE 100 ML IVPB SCH (23:08)
[2019-04-12] MEDS ORDERED: DEXTROSE 5%-WATER 100 ML IVPB ONE ×3 (02:31→17:30)
[2019-04-12] MEDS ORDERED: PIPERACILLIN/TAZOBACTAM 4.5 GM VIAL IVPB ONE ×3 (02:31→17:30)
[2019-04-12] MEDS: PIPERACILLIN/TAZOB 4.5 GM 4.5 GM in DEXTROSE 5%-WATER 100 ML IVPB SCH ×3 (02:39→17:52)
[2019-04-12] MEDS ORDERED: PT OWN MED DRAWER 7, Y5N ONE (05:44)
[2019-04-12] MEDS: dilTIAZem HCL 30 MG TABLET (FP) NR SCH ×3 (05:48→17:52)
[2019-04-12] MEDS: METOPROLOL TARTRATE 50 MG TABLET (FP) PEG SCH ×3 (05:48→17:52)
[2019-04-12] MEDS: INSULIN SLIDING SCALE (NOVOLOG) 1 VIAL SQ SCH ×4 (06:09→22:35)
[2019-04-12 07:46] LABS: BASO % 0.2 % (0-2.0); EOS % 1.8 % (0-4.5); HEMATOCRIT 28.7 % (35.4-49); HEMOGLOBIN 8.9 GM/dL (11.7-16.9); LYMPH % 3.6 % (8-40); MCH 31.4 pg (25.7-33.7); MCHC 31.1 g/dl (32.0-35.9); MEAN CELL VOLUME 100.8 fl (80-96); MEAN PLT VOLUME 9.6 fl (7.5-11.1); NEUT % 89.4 % (42.8-82.8); PLATELET COUNT 213 K/MM3 (134-434); RBC 2.85 M/mm3 (4.00-5.60); RDW 20.8 % (11.9-15.9); WHITE BLOOD COUNT 15.3 K/mm3 (4.0-10.0)
[2019-04-12 08:05] LABS: ALBUMIN 1.3 g/dl (3.4-5.0); BILIRUBIN,TOTAL 0.9 mg/dL (0.2-1); BLOOD UREA NITROGEN 21.7 mg/dL (7-18); CALCIUM 7.8 mg/dL (8.5-10.1); CREATININE 1.1 mg/dL (0.55-1.3); POTASSIUM 3.9 mmol/L (3.5-5.1); TOT PROT 6.3 g/dl (6.4-8.2)
--- NOTE | 2019-04-12 10:03 | PN ---
Progress Note, Physician Chief Complaint: Acute on Chronic Respiratory Failure UTI Ascites History of Present Illness: Previous notes and events reviewed awake and alert mechanically ventilated NAD abdomen appears more distended erythema noted to flank of bilateral nephrostomy R>L~re-consult ID Leukocytosis trending down WBC 17.0 - Current Medication List Current Medications: Active Medications Diltiazem HCl (Cardizem -) 30 mg NR Q6HPO [facility] Last Admin: 04/12/19 05:48 Dose: 30 mg Gentamicin Sulfate 300 mg/ (Sodium Chloride) 107.5 mls @ 107.5 mls/hr IVPB HS [facility] Last Admin: 04/11/19 23:08 Dose: 107.5 mls/hr Piperacillin Sod/Tazobactam (Sod 4.5 gm/ Dextrose) 100 mls @ 200 mls/hr IVPB Q8H-IV [facility]; Protocol Last Admin: 04/12/19 02:39 Dose: 200 mls/hr Insulin Aspart (Novolog Vial Sliding Scale -) 1 vial SQ ACHS [facility]; Protocol Last Admin: 04/12/19 06:09 Dose: Not Given Lisinopril (Prinivil) 5 mg PEG DAILY [facility] Last Admin: 04/11/19 11:00 Dose: 5 mg Metoprolol Tartrate (Lopressor -) 50 mg PEG Q6HPO [facility] Last Admin: 04/12/19 05:48 Dose: 50 mg Ondansetron HCl (Zofran Injection) 4 mg IVPUSH Q6H PRN PRN Reason: NAUSEA AND/OR VOMITING Pantoprazole Sodium (Protonix Iv) 40 mg IVPUSH DAILY [facility] Last Admin: 04/11/19 11:00 Dose: 40 mg Sodium Chloride (Normal Saline For Inhalation -) 3 ml IH Q6H PRN PRN Reason: COUGH Last Admin: 04/10/19 04:00 Dose: 3 ml - Objective Vital Signs: Vital Signs Temperature 98.5 F 04/12/19 06:00 Pulse Rate 93 H 04/12/19 06:00 Respiratory Rate 24 H 04/12/19 08:18 Blood Pressure 110/60 04/12/19 06:00 O2 Sat by Pulse Oximetry (%) 100 04/11/19 21:00 Constitutional: Yes: No Distress, Calm Eyes: Yes: Conjunctiva Clear HENT: Yes: Atraumatic Neck: Yes: Other (trach) Cardiovascular: Yes: Regular Rate and Rhythm Respiratory: Yes: Regular, Mechanically Ventilated, Rhonchi Gastrointestinal: Yes: Normal Bowel Sounds, Soft, Ascites Genitourinary: Yes: Huebr Present, Other (B/L nephrostomy tube) Musculoskeletal: Yes: Muscle Weakness Extremities: Yes: WNL Edema: Yes Edema: LUE: 2+, RUE: 2+, LLE: 2+, RLE: 2+ Integumentary: Yes: Bruising (b/l upper extremity), Erythema (B/L flank R>L), Pressure Ulcer Neurological: Yes: Alert, Pre-Existing Deficit Psychiatric: Yes: Alert Labs: CBC, BMP 04/12/19 06:45 04/12/19 06:45 INR, PTT INR 1.49 (0.83-1.09) H 03/31/19 08:50 Microbiology 04/06/19 19:30 Blood - Peripheral Venous Blood Culture - Final NO GROWTH AFTER 5 DAYS INCUBATION 04/06/19 19:30 Blood - Peripheral Venous Blood Culture - Final NO GROWTH AFTER 5 DAYS INCUBATION 04/08/19 07:50 Sputum - Endotrachea Suction/Ventilator Gram Stain - Final 04/08/19 07:50 Sputum - Endotrachea Suction/Ventilator Sputum Culture - Final Pseudomonas Aeruginosa Mr S Aureus 04/02/19 14:54 Peritoneal Fluid Gram Stain - Final 04/02/19 14:54 Peritoneal Fluid Body Fluid Culture - Final NO GROWTH OF AEROBIC ORGANISMS AFTER 48 HOURS INCUBATION 04/02/19 14:54 Peritoneal Fluid Anaerobic Culture - Final NO ANAEROBES WERE ISOLATED 04/02/19 14:54 Peritoneal Fluid AFB Smear Concentration - Preliminary 04/02/19 14:54 Peritoneal Fluid Mycobacterial Culture - Preliminary 03/31/19 01:27 Blood - Peripheral Venous Blood Culture - Final NO GROWTH AFTER 5 DAYS INCUBATION 03/31/19 01:27 Blood - Peripheral Venous Blood Culture - Final NO GROWTH AFTER 5 DAYS INCUBATION 04/02/19 14:54 Peritoneal Fluid ROB Preparation - Preliminary 04/02/19 14:54 Peritoneal Fluid Fungal Culture - Preliminary 03/31/19 02:17 Urine - Urine Nephrostomy Tube Left Urine Culture - Final Klebsiella Pneumoniae - Esbl Problem List - Problems (1) Acute and chronic respiratory failure Assessment/Plan: -Pulm on board -Mechanically Ventilated -keep SpO2 >90% -CXR shows cardiomegaly, left basilar compressive atelectasis, left pleural effusion, right pleural effusion -Sputum Culture positive for MRSA Code(s): J96.20 - ACUTE AND CHR RESP FAILURE, UNSP W HYPOXIA OR HYPERCAPNIA (2) Anemia Assessment/Plan: -Hg 8.9 -monitor Hg daily and transfuse for Hg <7.0 to avoid fluid overload -GI and Hematology on board -Anemia profile shows low Iron, low TIBC, high Ferritin Code(s): D64.9 - ANEMIA, UNSPECIFIED (3) Atrial flutter Assessment/Plan: -Metoprolol and Cardizem -Cardiology on board Code(s): I48.92 - UNSPECIFIED ATRIAL FLUTTER (4) COPD (chronic obstructive pulmonary disease) Assessment/Plan: -Pulm on board -Mechanically Ventilated -keep SpO2 >90% -CXR shows cardiomegaly, left basilar compressive atelectasis, left pleural effusion, right pleural effusion Code(s): J44.9 - CHRONIC OBSTRUCTIVE PULMONARY DISEASE, UNSPECIFIED (5) Diabetes mellitus Assessment/Plan: -BGM ACHS -ISS Code(s): E11.9 - TYPE 2 DIABETES MELLITUS WITHOUT COMPLICATIONS (6) GI bleed Assessment/Plan: -Hg 8.9 -GI on board -no reports of hematemesis or melena -Pantoprazole -as per GI note patient family states patient had EGD within year, no reports to review Code(s): K92.2 - GASTROINTESTINAL HEMORRHAGE, UNSPECIFIED (7) HTN (hypertension) Assessment/Plan: -Lisinopril Code(s): I10 - ESSENTIAL (PRIMARY) HYPERTENSION (8) SBO (small bowel obstruction) Assessment/Plan: -CTAP shows no evidence of bowel obstruction -GI on board Code(s): K56.609 - UNSP INTESTNL OBST, UNSP TO PARTIAL VERSUS COMPLETE OBST (9) Ascites Assessment/Plan: -s/p paracentesis -Ascites Fluid specimen noted albumin 1.8 with elevated globulins, 2+ proteinuria, macrocytic anemia raise suspicion for hematologic malingnancy -Hematology on board -re-order Abdominal US -reconsult IR for possible paracentesis Code(s): R18.8 - OTHER ASCITES (10) Sepsis Assessment/Plan: -ID on board -Leukocytosis -afebrile -Sputum Culture positive for MRSA -BC neg -UC positive ESBL, Klebsiella -Gentamicin and Zosyn -CXR shows cardiomegaly, left basilar compressive atelectasis, left pleural effusion, right pleural effusion -LA 2.1~1.3 Code(s): A41.9 - SEPSIS, UNSPECIFIED ORGANISM Assessment/Plan see problem list dvt ppx
[2019-04-12 10:33] LABS: ANISOCYTOSIS 2+; MACROCYTOSIS 0; PLATELET ESTIMATE NORMAL
--- NOTE | 2019-04-12 11:07 | PN ---
Progress Note (short form) - Note Progress Note: Vented. Awake on AC Mode. No fevers recorded. No acute events overnight. Intake & Output 04/09/19 04/10/19 04/11/19 04/12/19 23:59 23:59 23:59 23:59 Intake Total 1432 1250 835 0 Output Total 615 650 500 100 Balance 817 600 335 -100 Last Vital Signs Temp Pulse Resp BP Pulse Ox 98.5 F 93 H 24 H 110/60 100 04/12/19 06:00 04/12/19 06:00 04/12/19 08:18 04/12/19 06:00 04/11/19 21:00 Active Medications Diltiazem HCl (Cardizem -) 30 mg NR Q6HPO [facility] Last Admin: 04/12/19 05:48 Dose: 30 mg Gentamicin Sulfate 300 mg/ (Sodium Chloride) 107.5 mls @ 107.5 mls/hr IVPB HS [facility] Last Admin: 04/11/19 23:08 Dose: 107.5 mls/hr Piperacillin Sod/Tazobactam (Sod 4.5 gm/ Dextrose) 100 mls @ 200 mls/hr IVPB Q8H-IV [facility]; Protocol Last Admin: 04/12/19 02:39 Dose: 200 mls/hr Insulin Aspart (Novolog Vial Sliding Scale -) 1 vial SQ ACHS [facility]; Protocol Last Admin: 04/12/19 06:09 Dose: Not Given Lisinopril (Prinivil) 5 mg PEG DAILY [facility] Last Admin: 04/11/19 11:00 Dose: 5 mg Metoprolol Tartrate (Lopressor -) 50 mg PEG Q6HPO [facility] Last Admin: 04/12/19 05:48 Dose: 50 mg Ondansetron HCl (Zofran Injection) 4 mg IVPUSH Q6H PRN PRN Reason: NAUSEA AND/OR VOMITING Pantoprazole Sodium (Protonix Iv) 40 mg IVPUSH DAILY [facility] Last Admin: 04/11/19 11:00 Dose: 40 mg Sodium Chloride (Normal Saline For Inhalation -) 3 ml IH Q6H PRN PRN Reason: COUGH Last Admin: 04/10/19 04:00 Dose: 3 ml Gen: vented, awake Heart: RRR Lung: decreased breath sounds at the bases Abd: soft, nontender Ext: + edema Laboratory Results - last 24 hr 04/11/19 04/11/19 04/11/19 10:30 10:30 16:34 WBC 17.0 H RBC 2.80 L Hgb 8.6 L Hct 28.5 L MCV 101.6 H MCH 30.8 MCHC 30.3 L RDW 20.8 H Plt Count 191 MPV 9.3 Absolute Neuts (auto) 15.4 H Neutrophils % 90.4 H Neutrophils % (Manual) 92.1 H Band Neutrophils % 0.0 Lymphocytes % 3.3 L Lymphocytes % (Manual) 3.9 L D Monocytes % 4.2 Monocytes % (Manual) 3 L Eosinophils % 1.9 D Eosinophils % (Manual) 0.0 D Basophils % 0.2 Basophils % (Manual) 0.0 Myelocytes % (Man) 0 Promyelocytes % (Man) 0 Blast Cells % (Manual) 0 Nucleated RBC % 0 Metamyelocytes 0 Hypochromia 1+ Platelet Estimate Normal Polychromasia 0 Poikilocytosis 0 Basophilic Stippling Anisocytosis 1+ Microcytosis 1+ Macrocytosis 0 Spherocytes 1+ Sodium 145 Potassium 4.0 Chloride 114 H Carbon Dioxide 26 Anion Gap 5 L BUN 19.3 H Creatinine 1.0 Est GFR (CKD-EPI)AfAm 80.88 Est GFR (CKD-EPI)NonAf 69.78 POC Glucometer 72 Random Glucose 103 Calcium 7.3 L Total Bilirubin 0.6 AST 39 H ALT 28 Alkaline Phosphatase 190 H Total Protein 6.2 L Albumin 1.2 L 04/11/19 04/12/19 04/12/19 23:13 05:56 06:45 WBC 15.3 H RBC 2.85 L Hgb 8.9 L Hct 28.7 L MCV 100.8 H MCH 31.4 MCHC 31.1 L RDW 20.8 H Plt Count 213 MPV 9.6 Absolute Neuts (auto) 13.7 H Neutrophils % 89.4 H Neutrophils % (Manual) 91.0 H Band Neutrophils % 0.0 Lymphocytes % 3.6 L Lymphocytes % (Manual) 2.0 L D Monocytes % 5.0 Monocytes % (Manual) 2 L Eosinophils % 1.8 Eosinophils % (Manual) 3.0 D Basophils % 0.2 Basophils % (Manual) 0.0 Myelocytes % (Man) 1 D Promyelocytes % (Man) 1 D Blast Cells % (Manual) 0 Nucleated RBC % 0 Metamyelocytes 0 Hypochromia 1+ Platelet Estimate Normal Polychromasia 1+ Poikilocytosis 0 Basophilic Stippling 1+ Anisocytosis 2+ Microcytosis 2+ Macrocytosis 0 Spherocytes Sodium Potassium Chloride Carbon Dioxide Anion Gap BUN Creatinine Est GFR (CKD-EPI)AfAm Est GFR (CKD-EPI)NonAf POC Glucometer 82 85 Random Glucose Calcium Total Bilirubin AST ALT Alkaline Phosphatase Total Protein Albumin 04/12/19 06:45 WBC RBC Hgb Hct MCV MCH MCHC RDW Plt Count MPV Absolute Neuts (auto) Neutrophils % Neutrophils % (Manual) Band Neutrophils % Lymphocytes % Lymphocytes % (Manual) Monocytes % Monocytes % (Manual) Eosinophils % Eosinophils % (Manual) Basophils % Basophils % (Manual) Myelocytes % (Man) Promyelocytes % (Man) Blast Cells % (Manual) Nucleated RBC % Metamyelocytes Hypochromia Platelet Estimate Polychromasia Poikilocytosis Basophilic Stippling Anisocytosis Microcytosis Macrocytosis Spherocytes Sodium 145 Potassium 3.9 Chloride 113 H Carbon Dioxide 23 Anion Gap 9 BUN 21.7 H Creatinine 1.1 Est GFR (CKD-EPI)AfAm 72.07 Est GFR (CKD-EPI)NonAf 62.19 POC Glucometer Random Glucose 81 Calcium 7.8 L Total Bilirubin 0.9 AST 38 H ALT 28 Alkaline Phosphatase 189 H Total Protein 6.3 L Albumin 1.3 L A/P Chronic Respiratory Failure r/o UTI/Pneumonia/Sepsis Lactic Acidosis Atrial Flutter with RVR Anemia CAD s/p CABG COPD HTN Hyperlipidemia Ascites - ABX Per ID - protonix - monitor H/H - Rate control - Resume anticoagulation if no contraindications and cleared - enteral feeds as tolerated - DVT/GI prophylaxis Dr Castro
[2019-04-12] MEDS: PANTOPRAZOLE SODIUM 40 MG VIAL IVPUSH SCH (11:34)
[2019-04-12] MEDS: LISINOPRIL 5 MG TABLET (FP) PEG SCH (11:34)
[2019-04-12] MEDS ORDERED: dilTIAZem HCL 25 MG/5 ML - 5 ML VIAL IVPUSH ONE (20:01)
--- NOTE | 2019-04-12 20:01 | RAPID ---
Physical Examination Vital Signs: Vital Signs Temperature 98.2 F 04/12/19 18:00 Pulse Rate 94 H 04/12/19 18:00 Respiratory Rate 20 04/12/19 18:00 Blood Pressure 125/67 04/12/19 18:00 O2 Sat by Pulse Oximetry (%) 100 04/12/19 12:08 Labs: CBC, BMP 04/12/19 06:45 04/12/19 06:45 Rapid Response - Rapid Response Assessment: rapid response called overhead Vitals on arrival: 131/89, pulse 143 EKG performed showing aflutter/ afib - pt appears overloaded, crackles b/l , very edematous -cardiac enzymes, BMP, Mg ordered -CXR - cardizem 10 mg IVP administered, rate improved ~90 bpm. rpt EKG shows Afib rate 109 - will stagger timing of lopressor/ cardizem , with hopes of better rate control - cardiac re-consultation appreciated - on review, organism in sputum culture is resistant to gentamycin, please address - consider other sources for break through Afib - if tach / Afib RVR persist consider tele monitoring
[2019-04-12 21:12] LABS: ALBUMIN 1.4 g/dl (3.4-5.0); ALK PHOS 196 U/L (45-117); ANION GAP 8 MMOL/L (8-16); BILIRUBIN,TOTAL 0.7 mg/dL (0.2-1); CALCIUM 7.5 mg/dL (8.5-10.1); CHLORIDE 115 mmol/L (98-107); CO2 22 mmol/L (21-32); CREATININE 1.1 mg/dL (0.55-1.3); GLUCOSE,RANDOM 82 mg/dL (74-106); SGOT/AST 32 U/L (15-37); SGPT/ALT 26 U/L (13-61); SODIUM 145 mmol/L (136-145); TOT PROT 6.6 g/dl (6.4-8.2)
[2019-04-12] MEDS ORDERED: INSULIN (NOVOLOG) ASPART 100 UNITS/ML 10ML VIAL ONE (22:06)
[2019-04-12] MEDS: SODIUM CHLORIDE IVPB SCH (22:35)
[2019-04-12] MEDS: GENTAMICIN IVPB SCH (22:35)
[2019-04-13] MEDS ORDERED: PIPERACILLIN/TAZOBACTAM 4.5 GM VIAL IVPB ONE ×3 (01:17→17:09)
[2019-04-13] MEDS ORDERED: DEXTROSE 5%-WATER 100 ML IVPB ONE ×3 (01:17→17:09)
[2019-04-13] MEDS: METOPROLOL TARTRATE 50 MG TABLET (FP) PEG SCH ×4 (01:42→17:07)
[2019-04-13] MEDS: dilTIAZem HCL 30 MG TABLET (FP) NR SCH ×4 (01:42→17:07)
[2019-04-13] MEDS: PIPERACILLIN/TAZOB 4.5 GM 4.5 GM in DEXTROSE 5%-WATER 100 ML IVPB SCH ×3 (01:43→18:00)
[2019-04-13] MEDS ORDERED: dilTIAZem HCL 30 MG TABLET (FP) NR ONE (04:44)
[2019-04-13] MEDS: INSULIN SLIDING SCALE (NOVOLOG) 1 VIAL SQ SCH ×4 (06:07→22:50)
[2019-04-13 07:50] LABS: HEMATOCRIT 24.9 % (35.4-49); HEMOGLOBIN 7.8 GM/dL (11.7-16.9); MCHC 31.2 g/dl (32.0-35.9); MEAN CELL VOLUME 99.4 fl (80-96); MEAN PLT VOLUME 9.1 fl (7.5-11.1); PLATELET COUNT 236 K/MM3 (134-434); RBC 2.51 M/mm3 (4.00-5.60); WHITE BLOOD COUNT 17.2 K/mm3 (4.0-10.0)
[2019-04-13 08:17] LABS: ALBUMIN 1.3 g/dl (3.4-5.0); BILIRUBIN,TOTAL 0.7 mg/dL (0.2-1); BLOOD UREA NITROGEN 30.3 mg/dL (7-18); CALCIUM 7.4 mg/dL (8.5-10.1); CREATININE 1.2 mg/dL (0.55-1.3); TOT PROT 6.6 g/dl (6.4-8.2)
[2019-04-13] MEDS: LISINOPRIL 5 MG TABLET (FP) PEG SCH (09:44)
--- NOTE | 2019-04-13 09:51 | PN ---
Progress Note, Physician Chief Complaint: called to see patient for RVR. 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 Now having melena. History of Present Illness: 83 year old male with a pmhx of prostate CA s/p radiation, CAD s/p CABG 05/2018, dm, htn, esrd, copd, and s/p Trach/vent/peg sent from assisted for coffee ground emesis. Patient cannot give history. EKG: atach/flutter with VR 136bpm, NIVCD CT chest/abd/pelvis: Bilateral pleural effusions, consolidation, moderate to large ascites 4.6cm Throacic anuerysm had episode of vomiting and tachycardia last night. ECG showed aflutter with 2:1 block, given IV dilt. CXR done result pending. HR now elevated last night, again this AM. - Current Medication List Current Medications: Active Medications Diltiazem HCl (Cardizem -) 30 mg NR Q6HPO [facility] Last Admin: 04/13/19 05:09 Dose: Not Given Piperacillin Sod/Tazobactam (Sod 4.5 gm/ Dextrose) 100 mls @ 200 mls/hr IVPB Q8H-IV [facility]; Protocol Last Admin: 04/13/19 01:43 Dose: 200 mls/hr Gentamicin Sulfate 300 mg/ (Sodium Chloride) 257.5 mls @ 128.75 mls/hr IVPB HS [facility] Last Admin: 04/12/19 22:35 Dose: 128.75 mls/hr Insulin Aspart (Novolog Vial Sliding Scale -) 1 vial SQ ACHS [facility]; Protocol Last Admin: 04/13/19 06:07 Dose: Not Given Lisinopril (Prinivil) 5 mg PEG DAILY [facility] Last Admin: 04/12/19 11:34 Dose: 5 mg Metoprolol Tartrate (Lopressor -) 50 mg PEG Q6HPO [facility] Last Admin: 04/13/19 06:12 Dose: 50 mg Ondansetron HCl (Zofran Injection) 4 mg IVPUSH Q6H PRN PRN Reason: NAUSEA AND/OR VOMITING Pantoprazole Sodium (Protonix Iv) 40 mg IVPUSH DAILY [facility] Last Admin: 04/12/19 11:34 Dose: 40 mg Sodium Chloride (Normal Saline For Inhalation -) 3 ml IH Q6H PRN PRN Reason: COUGH Last Admin: 04/10/19 04:00 Dose: 3 ml - Objective Vital Signs: Vital Signs Temperature 98.1 F 04/13/19 06:00 Pulse Rate 112 H 04/13/19 06:00 Respiratory Rate 23 H 04/13/19 08:28 Blood Pressure 155/53 L 04/13/19 06:00 O2 Sat by Pulse Oximetry (%) 100 04/12/19 21:00 Constitutional: Yes: Calm Eyes: Yes: EOM Intact HENT: Yes: Normocephalic Neck: Yes: Trachea Midline (tracheostomy) Cardiovascular: Yes: Pulse Irregular Respiratory: Yes: Mechanically Ventilated Gastrointestinal: Yes: Soft Extremities: Yes: WNL Edema: No Labs: CBC, BMP 04/13/19 07:10 04/13/19 07:10 INR, PTT INR 1.49 (0.83-1.09) H 03/31/19 08:50 Assessment/Plan 83 year old male with a pmhx of prostate CA s/p radiation, CAD s/p CABG 05/2018, dm, htn, esrd, copd, and s/p Trach/vent/peg sent from assisted for coffee ground emesis. Patient cannot give history. EKG: atach/flutter with VR 136bpm, NIVCD CT chest/abd/pelvis: Bilateral pleural effusions, consolidation, moderate to large ascites 4.6cm Throacic anuerysm had episode of vomiting and tachycardia 04/06/19. no evidence of obstruction. 1) CV -No intervention for TAA 4.6cm. BP control and beta filippo -Abx as per primary team. -he is in rapid atach/aflutter. -Would defer AC at this time H/H seems to be dropping. Transfuse PRN. -not a cardiac workup candidate. -likely tachycardia was due to aspiration/secretions with hypoxia, sepsis and melena. Would continue current BB and dilt. Hold ACEI. -will follow with you.
--- NOTE | 2019-04-13 10:03 | PN ---
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 Ordered 1U PRBC for transfusion. ICU consult placed. - Current Medication List Current Medications: Active Medications Diltiazem HCl (Cardizem -) 30 mg NR Q6HPO [facility] Last Admin: 04/13/19 05:09 Dose: Not Given Piperacillin Sod/Tazobactam (Sod 4.5 gm/ Dextrose) 100 mls @ 200 mls/hr IVPB Q8H-IV [facility]; Protocol Last Admin: 04/13/19 01:43 Dose: 200 mls/hr Gentamicin Sulfate 300 mg/ (Sodium Chloride) 257.5 mls @ 128.75 mls/hr IVPB HS [facility] Last Admin: 04/12/19 22:35 Dose: 128.75 mls/hr Insulin Aspart (Novolog Vial Sliding Scale -) 1 vial SQ ACHS [facility]; Protocol Last Admin: 04/13/19 06:07 Dose: Not Given Lisinopril (Prinivil) 5 mg PEG DAILY [facility] Last Admin: 04/12/19 11:34 Dose: 5 mg Metoprolol Tartrate (Lopressor -) 50 mg PEG Q6HPO [facility] 234 [facility] Last Admin: 04/13/19 06:12 Dose: 50 mg Ondansetron HCl (Zofran Injection) 4 mg IVPUSH Q6H PRN PRN Reason: NAUSEA AND/OR VOMITING Pantoprazole Sodium (Protonix Iv) 40 mg IVPUSH DAILY [facility] Last Admin: 04/12/19 11:34 Dose: 40 mg Sodium Chloride (Normal Saline For Inhalation -) 3 ml IH Q6H PRN PRN Reason: COUGH Last Admin: 04/10/19 04:00 Dose: 3 ml - Objective Vital Signs: Vital Signs Temperature 98.1 F 04/13/19 06:00 Pulse Rate 112 H 04/13/19 06:00 Respiratory Rate 23 H 04/13/19 08:28 Blood Pressure 155/53 L 04/13/19 06:00 O2 Sat by Pulse Oximetry (%) 100 04/12/19 21:00 Constitutional: Yes: No Distress, Calm Eyes: Yes: Conjunctiva Clear HENT: Yes: Atraumatic Neck: Yes: Other (neck) Cardiovascular: Yes: Tachycardia, Pulse Irregular Respiratory: Yes: Regular, Diminished, Mechanically Ventilated Gastrointestinal: Yes: Normal Bowel Sounds, Soft, Ascites, Other (G tube) Genitourinary: Yes: Other (nephrostomy tube b/l) Musculoskeletal: Yes: Muscle Weakness Extremities: Yes: WNL Edema: Yes (upper extremity edema) Edema: LLE: 2+, RLE: 2+ Neurological: Yes: Alert, Pre-Existing Deficit Psychiatric: Yes: Alert Labs: CBC, BMP 04/13/19 07:10 04/13/19 07:10 INR, PTT INR 1.49 (0.83-1.09) H 03/31/19 08:50 Microbiology 04/06/19 19:30 Blood - Peripheral Venous Blood Culture - Final NO GROWTH AFTER 5 DAYS INCUBATION 04/06/19 19:30 Blood - Peripheral Venous Blood Culture - Final NO GROWTH AFTER 5 DAYS INCUBATION 04/08/19 07:50 Sputum - Endotrachea Suction/Ventilator Gram Stain - Final 04/08/19 07:50 Sputum - Endotrachea Suction/Ventilator Sputum Culture - Final Pseudomonas Aeruginosa Mr S Aureus 04/02/19 14:54 Peritoneal Fluid Gram Stain - Final 04/02/19 14:54 Peritoneal Fluid Body Fluid Culture - Final NO GROWTH OF AEROBIC ORGANISMS AFTER 48 HOURS INCUBATION 04/02/19 14:54 Peritoneal Fluid Anaerobic Culture - Final NO ANAEROBES WERE ISOLATED 04/02/19 14:54 Peritoneal Fluid AFB Smear Concentration - Preliminary 04/02/19 14:54 Peritoneal Fluid Mycobacterial Culture - Preliminary 03/31/19 01:27 Blood - Peripheral Venous Blood Culture - Final NO GROWTH AFTER 5 DAYS INCUBATION 03/31/19 01:27 Blood - Peripheral Venous Blood Culture - Final NO GROWTH AFTER 5 DAYS INCUBATION 04/02/19 14:54 Peritoneal Fluid ROB Preparation - Preliminary 04/02/19 14:54 Peritoneal Fluid Fungal Culture - Preliminary 03/31/19 02:17 Urine - Urine Nephrostomy Tube Left Urine Culture - Final Klebsiella Pneumoniae - Esbl Problem List - Problems (1) Acute and chronic respiratory failure Assessment/Plan: -Pulm on board -Mechanically Ventilated -keep SpO2 >90% -CXR shows cardiomegaly, left basilar compressive atelectasis, left pleural effusion, right pleural effusion -Sputum Culture positive for MRSA Code(s): J96.20 - ACUTE AND CHR RESP FAILURE, UNSP W HYPOXIA OR HYPERCAPNIA (2) Anemia Assessment/Plan: -Hg 7.8 -1U PRBC ordered for transfusion -monitor Hg daily and transfuse for Hg <7.0 to avoid fluid overload -GI and Hematology on board -Anemia profile shows low Iron, low TIBC, high Ferritin Code(s): D64.9 - ANEMIA, UNSPECIFIED (3) Atrial flutter Assessment/Plan: -Metoprolol and Cardizem -Cardiology on board -HR 130s, recalled cardiology Code(s): I48.92 - UNSPECIFIED ATRIAL FLUTTER (4) COPD (chronic obstructive pulmonary disease) Assessment/Plan: -Pulm on board -Mechanically Ventilated -keep SpO2 >90% -CXR shows cardiomegaly, left basilar compressive atelectasis, left pleural effusion, right pleural effusion Code(s): J44.9 - CHRONIC OBSTRUCTIVE PULMONARY DISEASE, UNSPECIFIED (5) Diabetes mellitus Assessment/Plan: -BGM ACHS -ISS Code(s): E11.9 - TYPE 2 DIABETES MELLITUS WITHOUT COMPLICATIONS (6) GI bleed Assessment/Plan: -Hg 7.8 -GI on board -episode of Melena -1U PRBC ordered for transfusion -Pantoprazole -as per GI note patient family states patient had EGD within year, no reports to review -ICU consult placed Code(s): K92.2 - GASTROINTESTINAL HEMORRHAGE, UNSPECIFIED (7) HTN (hypertension) Assessment/Plan: -Lisinopril Code(s): I10 - ESSENTIAL (PRIMARY) HYPERTENSION (8) SBO (small bowel obstruction) Assessment/Plan: -CTAP shows no evidence of bowel obstruction -GI on board Code(s): K56.609 - UNSP INTESTNL OBST, UNSP TO PARTIAL VERSUS COMPLETE OBST (9) Ascites Assessment/Plan: -s/p paracentesis -Ascites Fluid specimen noted albumin 1.8 with elevated globulins, 2+ proteinuria, macrocytic anemia raise suspicion for hematologic malingnancy -Hematology on board -re-order Abdominal US -reconsult IR for possible paracentesis Code(s): R18.8 - OTHER ASCITES (10) Sepsis Assessment/Plan: -ID on board -Leukocytosis -afebrile -Sputum Culture positive for MRSA -BC neg -UC positive ESBL, Klebsiella -Gentamicin and Zosyn -CXR shows cardiomegaly, left basilar compressive atelectasis, left pleural effusion, right pleural effusion -LA 2.1~1.3 Code(s): A41.9 - SEPSIS, UNSPECIFIED ORGANISM Assessment/Plan see problem list dvt ppx
--- NOTE | 2019-04-13 10:44 | PN.GI ---
GI Progress Note Subjective: Called to reevaluate. Rapid response called last night as he went into RVR. Melena was noted as well. Per nurse this morning, he has had liquid black bowel movements this morning. Hgb 7.8 this morning. Patient with a small bore IV in hand currently. Plan is for transfer to ICU, IV access and transfusion of blood. Tube feeds have been continued. - Objective Vital Signs: Vital Signs Temperature 98.1 F 04/13/19 06:00 Pulse Rate 140 H 04/13/19 10:00 Respiratory Rate 20 04/13/19 09:30 Blood Pressure 116/60 04/13/19 09:30 O2 Sat by Pulse Oximetry (%) 100 04/12/19 21:00 Constitutional: Calm, Other (opens eyes, non verbal) Eyes: No: Sclera Icterus Cardiovascular: Yes: Tachycardia, Pulse Irregular Respiratory: Yes: Diminished (at bases bilaterally) Gastrointestinal Inspection: Yes: Distention, Other (G Tube lavaged. Tube feeds , no blood) ...Auscultate: Yes: Normoactive Bowel Sounds ...Palpate: Yes: Soft. No: Tenderness (No grimacing upon palpation) ...Percussion: No: Tympanitic Edema: Yes Neurological: Yes: Other (Opens eyes) Labs: CBC, BMP 04/13/19 07:10 04/13/19 07:10 INR, PTT INR 1.49 (0.83-1.09) H 03/31/19 08:50 Problem List - Problems (1) Melena Assessment/Plan: Discussed clinical situation with Ms. Kilpatrick's daughter Beulah. Explained that once Mr. Kilpatrick has adequate IV access and is resuscitated, heart rate better controlled, upper endoscopy can be performed to exclude a source of significant upper GI bleeding. Discussed potential risks of the procedure like but not limited to bleeding, perforation requiiring surgery to repair, infection, sedation medication effects all of which could be potentially life threatening. She has agreed to the procedure if it was felt to be clinically necessary. She does not want DNR suspended during the procedure. For now: Transfer to ICU Hold tube feeds Change to PPI drip Check repeat coags and correct coagulopathy Adequate IV access Transfuse as needed to keep hgb 8 Code(s): K92.1 - MELENA
[2019-04-13] MEDS ORDERED: METOPROLOL TARTRATE 5 MG/5 ML VIAL IVPUSH ONE (11:11)
--- NOTE | 2019-04-13 11:13 | PN ---
<Kassandra Concepcion - Last Filed: 04/13/19 12:44> Physical Exam: SUBJECTIVE: Patient seen and examined OBJECTIVE: Vital Signs Period Temp Pulse Resp BP Sys/Kang Pulse Ox Last 24 Hr 97.5 F-98.2 F 92-140 18-35 96-155/48-77 100-100 GENERAL: The patient is awake, alert, and fully oriented, in no acute distress. HEAD: Normal with no signs of trauma. EYES: PERRL, extraocular movements intact, sclera anicteric, conjunctiva clear. No ptosis. ENT: Ears normal, nares patent, oropharynx clear without exudates, moist mucous membranes. NECK: Trachea midline, full range of motion, supple. LUNGS: Breath sounds equal, clear to auscultation bilaterally, no wheezes, no crackles, no accessory muscle use. HEART: Regular rate and rhythm, S1, S2 without murmur, rub or gallop. ABDOMEN: Soft, nontender, nondistended, normoactive bowel sounds, no guarding, no rebound, no hepatosplenomegaly, no masses. EXTREMITIES: 2+ pulses, warm, well-perfused, no edema. NEUROLOGICAL: Cranial nerves II through XII grossly intact. Normal speech, gait not observed. PSYCH: Normal mood, normal affect. SKIN: Warm, dry, normal turgor, no rashes or lesions noted Laboratory Results - last 24 hr 04/12/19 04/12/19 04/12/19 11:44 17:56 20:25 WBC RBC Hgb Hct MCV MCH MCHC RDW Plt Count MPV Sodium 145 Potassium 4.0 Chloride 115 H Carbon Dioxide 22 Anion Gap 8 BUN 27.0 H Creatinine 1.1 Est GFR (CKD-EPI)AfAm 72.07 Est GFR (CKD-EPI)NonAf 62.19 POC Glucometer 82 84 Random Glucose 82 Calcium 7.5 L Magnesium 2.0 Total Bilirubin 0.7 AST 32 ALT 26 Alkaline Phosphatase 196 H Creatine Kinase 12 L Troponin I < 0.02 Total Protein 6.6 Albumin 1.4 L 04/12/19 04/13/19 04/13/19 22:12 05:43 07:10 WBC 17.2 H RBC 2.51 L Hgb 7.8 L Hct 24.9 L MCV 99.4 H MCH 31.0 MCHC 31.2 L RDW 21.0 H Plt Count 236 MPV 9.1 Sodium Potassium Chloride Carbon Dioxide Anion Gap BUN Creatinine Est GFR (CKD-EPI)AfAm Est GFR (CKD-EPI)NonAf POC Glucometer 100 92 Random Glucose Calcium Magnesium Total Bilirubin AST ALT Alkaline Phosphatase Creatine Kinase Troponin I Total Protein Albumin 04/13/19 07:10 WBC RBC Hgb Hct MCV MCH MCHC RDW Plt Count MPV Sodium 144 Potassium 4.0 Chloride 114 H Carbon Dioxide 23 Anion Gap 7 L BUN 30.3 H Creatinine 1.2 Est GFR (CKD-EPI)AfAm 64.88 Est GFR (CKD-EPI)NonAf 55.98 POC Glucometer Random Glucose 85 Calcium 7.4 L Magnesium Total Bilirubin 0.7 AST 28 ALT 25 Alkaline Phosphatase 189 H Creatine Kinase Troponin I Total Protein 6.6 Albumin 1.3 L Active Medications Generic Name Dose Route Start Last Admin Trade Name Freq PRN Reason Stop Dose Admin Diltiazem HCl 30 mg 04/13/19 04:31 04/13/19 05:09 Cardizem - NR Not Given Q6HPO [facility] Piperacillin Sod/Tazobactam 100 mls @ 200 mls/hr 04/08/19 18:00 04/13/19 01: 43 Sod 4.5 gm/ Dextrose IVPB 200 mls/hr Q8H-IV [facility] Administration Protocol Gentamicin Sulfate 300 mg/ 257.5 mls @ 128.75 mls/hr 04/12/19 13:41 04/12/19 22:35 Sodium Chloride IVPB 128.75 mls/hr HS [facility] Administration Sodium Chloride 1,000 mls @ 75 mls/hr 04/13/19 11:15 Normal Saline - IV ASDIR [facility] Insulin Aspart 1 vial 04/09/19 11:00 04/13/19 06:07 Novolog Vial Sliding Scale - SQ Not Given ACHS [facility] Protocol Lisinopril 5 mg 04/02/19 10:00 04/13/19 09:44 Prinivil PEG Not Given DAILY [facility] Metoprolol Tartrate 50 mg 04/02/19 01:00 04/13/19 06:12 Lopressor - PEG 50 mg Q6HPO [facility] Administration Ondansetron HCl 4 mg 04/06/19 02:10 Zofran Injection IVPUSH Q6H PRN NAUSEA AND/OR VOMITING Pantoprazole Sodium 40 mg 04/08/19 10:00 04/12/19 11:34 Protonix Iv IVPUSH 40 mg DAILY [facility] Administration Sodium Chloride 3 ml 04/02/19 02:23 04/10/19 04:00 Normal Saline For Inhalation - IH 3 ml Q6H PRN Administration COUGH ASSESSMENT/PLAN: 83 y/o male with PMH of CABG, ESRD s/p nephrostomy tubes, Pneumonia, Chronic Respiratory Failure s/p Tracheotomy/ Vent dependent, PEG tube, Diabetes Mellitus , Anemia who initally presented to the hospital with complaints of coffee ground emesis, is now back in ICU for due to tachycardia secondary to GI bleed #Neuro alert; no issues c/w home medications #Cardio PMH of CABG, Afib -patient remains tachycardic in the 140's; will give cardizem/lopressor pushes pending hemodynamics -will hold BP meds in light of soft pressures and GI bleed -transfusion threshold if Hgb <8 given cardiac history -central line placed given hemodynamic instability and no IV access #Endocrine Diabetes Mellitus -ISS ACHS -BGMS ACHS #GI patient currently having melena -GI on board -PPI drip -transfusion threshold Hgb <8 -NS @75mls -will need endoscopy once hemodynamically stable #Heme patient currently having episodes of melena with most recent Hgb of 7.8 -type and screen then transfuse -serial CBC's q6H -NS@75mls #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 I reviewed the resident's note and discussed the case with the resident. I agree with the resident's findings and plan as documented. SUBJECTIVE: OBJECTIVE: ASSESSMENT AND PLAN: <JuanComfort I - Last Filed: 04/13/19 12:49> Physical Exam: SUBJECTIVE: Patient seen and examined OBJECTIVE: Vital Signs Period Temp Pulse Resp BP Sys/Kang Pulse Ox Last 24 Hr 97.5 F-98.2 F 92-140 18-35 96-155/48-77 100-100 GENERAL: The patient is awake, alert, and fully oriented, in no acute distress. HEAD: Normal with no signs of trauma. EYES: PERRL, extraocular movements intact, sclera anicteric, conjunctiva clear. No ptosis. ENT: Ears normal, nares patent, oropharynx clear without exudates, moist mucous membranes. NECK: Trachea midline, full range of motion, supple. LUNGS: Breath sounds equal, clear to auscultation bilaterally, no wheezes, no crackles, no accessory muscle use. HEART: Regular rate and rhythm, S1, S2 without murmur, rub or gallop. ABDOMEN: Soft, nontender, nondistended, normoactive bowel sounds, no guarding, no rebound, no hepatosplenomegaly, no masses. EXTREMITIES: 2+ pulses, warm, well-perfused, no edema. NEUROLOGICAL: Cranial nerves II through XII grossly intact. Normal speech, gait not observed. PSYCH: Normal mood, normal affect. SKIN: Warm, dry, normal turgor, no rashes or lesions noted Laboratory Results - last 24 hr 04/12/19 04/12/19 04/12/19 11:44 17:56 20:25 WBC RBC Hgb Hct MCV MCH MCHC RDW Plt Count MPV Sodium 145 Potassium 4.0 Chloride 115 H Carbon Dioxide 22 Anion Gap 8 BUN 27.0 H Creatinine 1.1 Est GFR (CKD-EPI)AfAm 72.07 Est GFR (CKD-EPI)NonAf 62.19 POC Glucometer 82 84 Random Glucose 82 Calcium 7.5 L Magnesium 2.0 Total Bilirubin 0.7 AST 32 ALT 26 Alkaline Phosphatase 196 H Creatine Kinase 12 L Troponin I < 0.02 Total Protein 6.6 Albumin 1.4 L 04/12/19 04/13/19 04/13/19 22:12 05:43 07:10 WBC 17.2 H RBC 2.51 L Hgb 7.8 L Hct 24.9 L MCV 99.4 H MCH 31.0 MCHC 31.2 L RDW 21.0 H Plt Count 236 MPV 9.1 Sodium Potassium Chloride Carbon Dioxide Anion Gap BUN Creatinine Est GFR (CKD-EPI)AfAm Est GFR (CKD-EPI)NonAf POC Glucometer 100 92 Random Glucose Calcium Magnesium Total Bilirubin AST ALT Alkaline Phosphatase Creatine Kinase Troponin I Total Protein Albumin 04/13/19 07:10 WBC RBC Hgb Hct MCV MCH MCHC RDW Plt Count MPV Sodium 144 Potassium 4.0 Chloride 114 H Carbon Dioxide 23 Anion Gap 7 L BUN 30.3 H Creatinine 1.2 Est GFR (CKD-EPI)AfAm 64.88 Est GFR (CKD-EPI)NonAf 55.98 POC Glucometer Random Glucose 85 Calcium 7.4 L Magnesium Total Bilirubin 0.7 AST 28 ALT 25 Alkaline Phosphatase 189 H Creatine Kinase Troponin I Total Protein 6.6 Albumin 1.3 L Active Medications Generic Name Dose Route Start Last Admin Trade Name Freq PRN Reason Stop Dose Admin Diltiazem HCl 30 mg 04/13/19 04:31 04/13/19 05:09 Cardizem - NR Not Given Q6HPO [facility] Piperacillin Sod/Tazobactam 100 mls @ 200 mls/hr 04/08/19 18:00 04/13/19 01: 43 Sod 4.5 gm/ Dextrose IVPB 200 mls/hr Q8H-IV [facility] Administration Protocol Gentamicin Sulfate 300 mg/ 257.5 mls @ 128.75 mls/hr 04/12/19 13:41 04/12/19 22:35 Sodium Chloride IVPB 128.75 mls/hr HS [facility] Administration Sodium Chloride 1,000 mls @ 75 mls/hr 04/13/19 11:15 Normal Saline - IV ASDIR [facility] Insulin Aspart 1 vial 04/09/19 11:00 04/13/19 06:07 Novolog Vial Sliding Scale - SQ Not Given ACHS [facility] Protocol Lisinopril 5 mg 04/02/19 10:00 04/13/19 09:44 Prinivil PEG Not Given DAILY [facility] Metoprolol Tartrate 50 mg 04/02/19 01:00 04/13/19 06:12 Lopressor - PEG 50 mg Q6HPO [facility] Administration Metoprolol Tartrate 10 mg 04/13/19 11:11 Lopressor Injection - IVPUSH 04/13/19 11:12 ONCE ONE Ondansetron HCl 4 mg 04/06/19 02:10 Zofran Injection IVPUSH Q6H PRN NAUSEA AND/OR VOMITING Pantoprazole Sodium 40 mg 04/08/19 10:00 04/12/19 11:34 Protonix Iv IVPUSH 40 mg DAILY [facility] Administration Sodium Chloride 3 ml 04/02/19 02:23 04/10/19 04:00 Normal Saline For Inhalation - IH 3 ml Q6H PRN Administration COUGH ASSESSMENT/PLAN: ATTENDING PHYSICIAN STATEMENT I saw and evaluated the patient. I reviewed the resident's note and discussed the case with the resident. I agree with the resident's findings and plan as documented. SUBJECTIVE: OBJECTIVE: ASSESSMENT AND PLAN:
[2019-04-13] MEDS ORDERED: ACETAMINOPHEN 1000 MG/100 ML VIAL (NON FORMULARY) IVPB ONE (11:22)
[2019-04-13] MEDS ORDERED: MORPHINE SULFATE 2 MG/ML VIAL IM ONE (11:40)
[2019-04-13] MEDS ORDERED: MIDAZOLAM HCL 2 MG/2 ML SINGLE DOSE VIAL ONE (11:51)
--- NOTE | 2019-04-13 12:17 | PN ---
Teaching Attending Note Name of Resident: Lynette Martinez ATTENDING PHYSICIAN STATEMENT I saw and evaluated the patient. I reviewed the resident's note and discussed the case with the resident. I agree with the resident's findings and plan as documented. SUBJECTIVE: Pt seen and examined in the ICU. Transferred down for rapid atrial fibrillation and melena. Pt unable to provide further history at this time. No fevers recorded. OBJECTIVE: Vital Signs Period Temp Pulse Resp BP Sys/Kang Pulse Ox Last 24 Hr 97.5 F-98.2 F 94-140 18-35 96-155/48-77 100-100 Intake & Output 04/10/19 04/11/19 04/12/19 04/13/19 23:59 23:59 23:59 23:59 Intake Total 1250 835 0 360 Output Total 650 500 700 10 Balance 600 335 -700 350 Gen: vented, awake Heart: tachycardic, irregular Lung: scattered rhonchi Abd: soft, nontender Ext: no edema CBC, BMP 04/13/19 07:10 04/13/19 07:10 Active Medications Diltiazem HCl (Cardizem -) 30 mg NR Q6HPO [facility] Last Admin: 04/13/19 05:09 Dose: Not Given Piperacillin Sod/Tazobactam (Sod 4.5 gm/ Dextrose) 100 mls @ 200 mls/hr IVPB Q8H-IV [facility]; Protocol Last Admin: 04/13/19 01:43 Dose: 200 mls/hr Gentamicin Sulfate 300 mg/ (Sodium Chloride) 257.5 mls @ 128.75 mls/hr IVPB HS [facility] Last Admin: 04/12/19 22:35 Dose: 128.75 mls/hr Sodium Chloride (Normal Saline -) 1,000 mls @ 75 mls/hr IV ASDIR [facility] Insulin Aspart (Novolog Vial Sliding Scale -) 1 vial SQ ACHS [facility]; Protocol Last Admin: 04/13/19 06:07 Dose: Not Given Lisinopril (Prinivil) 5 mg PEG DAILY [facility] Last Admin: 04/13/19 09:44 Dose: Not Given Metoprolol Tartrate (Lopressor -) 50 mg PEG Q6HPO [facility] Last Admin: 04/13/19 06:12 Dose: 50 mg Ondansetron HCl (Zofran Injection) 4 mg IVPUSH Q6H PRN PRN Reason: NAUSEA AND/OR VOMITING Pantoprazole Sodium (Protonix Iv) 40 mg IVPUSH DAILY [facility] Last Admin: 04/12/19 11:34 Dose: 40 mg Sodium Chloride (Normal Saline For Inhalation -) 3 ml IH Q6H PRN PRN Reason: COUGH Last Admin: 04/10/19 04:00 Dose: 3 ml ASSESSMENT AND PLAN: Atrial Flutter with RVR GI Bleed Anemia Chronic Respiratory Failure UTI/Pneumonia/Sepsis Lactic Acidosis CAD s/p CABG COPD HTN Hyperlipidemia Ascites - continue antibiotics - protonix - monitor H/H - transfuse as needed - rate control - holding anticoagulation - GI eval - NPO - DVT/GI prophylaxis - continue ICU monitoring for now
--- NOTE | 2019-04-13 12:32 | PROC ---
<Cordelia Holman - Last Filed: 04/13/19 12:30> Central Line Insertion Indication: Poor Venous Access Risks and Benefits Explained: Yes Consent on Chart: Yes Central Line: Triple Lumen Catheter Anesthesia: 1% Lidocaine Sterile Technique: Yes Ultrasound Guided Assistance: Yes Position: Left Internal Jugular Post Insertion: Yes: Bilateral Breath Sounds Sterile Dressing Applied: Yes <Evert Moreno MD - Last Filed: 04/13/19 13:14> Procedure Note Procedure: I supervised and was present during the entire procedure. Evert Moreno MD
[2019-04-13] MEDS: SODIUM CHLORIDE 1,000 ML IV SCH (12:47)
[2019-04-13] MEDS ORDERED: MIDAZOLAM HCL 2 MG/2 ML SINGLE DOSE VIAL IVPUSH ONE (12:49)
--- NOTE | 2019-04-13 12:50 | PN ---
Physical Exam: SUBJECTIVE: Patient seen and examined OBJECTIVE: Vital Signs Period Temp Pulse Resp BP Sys/Kang Pulse Ox Last 24 Hr 97.5 F-98.2 F 94-141 18-35 96-155/48-86 100-100 GENERAL: The patient is awake, agitated in mild acute distress. EYES: PEERLA: EOMI ENT: michael mucous membranes; no obvious bleeding form orifice NECK: trach in place; no surrounding erythema LUNGS: rhonchi appreciated bibasilar . HEART: tahcycardic, S1, S2 ABDOMEN: 2 nephrosotomy tubes R (uncovered; no erythema/pus/blood) L surgical dressing in place- G tube in place, cystostomy tube (paraumbilical) YASH: melanotic stool present . EXTREMITIES: 2+ pulses, warm, well-perfused, no edema. NEUROLOGICAL: awake, alert- nonverbal at baseline; responding with head nods ; moving all extremities PSYCH: Normal mood, normal affect. SKIN: 4x6 stage 4 decubital ulcer no obvious pus , with uribe base- no surrounding erythema Laboratory Results - last 24 hr 04/12/19 04/12/19 04/12/19 17:56 20:25 22:12 WBC RBC Hgb Hct MCV MCH MCHC RDW Plt Count MPV Sodium 145 Potassium 4.0 Chloride 115 H Carbon Dioxide 22 Anion Gap 8 BUN 27.0 H Creatinine 1.1 Est GFR (CKD-EPI)AfAm 72.07 Est GFR (CKD-EPI)NonAf 62.19 POC Glucometer 84 100 Random Glucose 82 Calcium 7.5 L Magnesium 2.0 Total Bilirubin 0.7 AST 32 ALT 26 Alkaline Phosphatase 196 H Creatine Kinase 12 L Troponin I < 0.02 Total Protein 6.6 Albumin 1.4 L 04/13/19 04/13/19 04/13/19 05:43 07:10 07:10 WBC 17.2 H RBC 2.51 L Hgb 7.8 L Hct 24.9 L MCV 99.4 H MCH 31.0 MCHC 31.2 L RDW 21.0 H Plt Count 236 MPV 9.1 Sodium 144 Potassium 4.0 Chloride 114 H Carbon Dioxide 23 Anion Gap 7 L BUN 30.3 H Creatinine 1.2 Est GFR (CKD-EPI)AfAm 64.88 Est GFR (CKD-EPI)NonAf 55.98 POC Glucometer 92 Random Glucose 85 Calcium 7.4 L Magnesium Total Bilirubin 0.7 AST 28 ALT 25 Alkaline Phosphatase 189 H Creatine Kinase Troponin I Total Protein 6.6 Albumin 1.3 L Active Medications Generic Name Dose Route Start Last Admin Trade Name Freq PRN Reason Stop Dose Admin Diltiazem HCl 30 mg 04/13/19 04:31 04/13/19 12:48 Cardizem - NR Not Given Q6HPO [facility] Piperacillin Sod/Tazobactam 100 mls @ 200 mls/hr 04/08/19 18:00 04/13/19 12:43 Sod 4.5 gm/ Dextrose IVPB 200 mls/hr Q8H-IV [facility] Administration Protocol Gentamicin Sulfate 300 mg/ 257.5 mls @ 128.75 mls/hr 04/12/19 13:41 04/12/19 22:35 Sodium Chloride IVPB 128.75 mls/hr HS [facility] Administration Sodium Chloride 1,000 mls @ 75 mls/hr 04/13/19 11:15 04/13/19 12:47 Normal Saline - IV 75 mls/hr ASDIR [facility] Administration Pantoprazole Sodium 80 mg/ 100 mls @ 10 mls/hr 04/13/19 12:45 Sodium Chloride IVPB Q10H [facility] 8 MG/HR Insulin Aspart 1 vial 04/09/19 11:00 04/13/19 06:07 Novolog Vial Sliding Scale - SQ Not Given ACHS [facility] Protocol Lisinopril 5 mg 04/02/19 10:00 04/13/19 09:44 Prinivil PEG Not Given DAILY [facility] Metoprolol Tartrate 50 mg 04/02/19 01:00 04/13/19 12:48 Lopressor - PEG Not Given Q6HPO [facility] Midazolam HCl 2 mg 04/13/19 12:49 Versed - IVPUSH 04/13/19 12:50 ONCE ONE Ondansetron HCl 4 mg 04/06/19 02:10 Zofran Injection IVPUSH Q6H PRN NAUSEA AND/OR VOMITING Sodium Chloride 3 ml 04/02/19 02:23 04/10/19 04:00 Normal Saline For Inhalation - IH 3 ml Q6H PRN Administration COUGH ASSESSMENT/PLAN: 83 y/o male with PMH of CABG, ESRD s/p nephrostomy tubes, Pneumonia, Chronic Respiratory Failure s/p Tracheotomy/ Vent dependent, PEG tube, Diabetes Mellitus, Anemia who initally presented to the hospital with complaints of coffee ground emesis, is now back in ICU for due to tachycardia secondary to GI bleed #Neuro alert; no issues c/w home medications #Cardio PMH of CABG, Afib -patient remains tachycardic in the 140's; will give cardizem/lopressor pushes pending hemodynamics -will hold BP meds in light of soft pressures and GI bleed -transfusion threshold if Hgb <8 given cardiac history -central line placed given hemodynamic instability and no IV access #Endocrine Diabetes Mellitus -ISS ACHS -BGMS ACHS #GI patient currently having melena -GI on board -PPI drip -transfusion threshold Hgb <8 -NS @75mls -will need endoscopy once hemodynamically stable #Heme patient currently having episodes of melena with most recent Hgb of 7.8 -type and screen then transfuse -serial CBC's q6H -NS@75mls #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 in sputum; - c/w zosyn and gentamycin #Pulm Chronic Respiratory Failure; pneumonia -vent dependent; CXR B/L effusions L>R w/ atelectasis -sputum cx growing MRSA -c/w zosyn and gentamycin -monitor 02 sats F/E/N NS @75mls/hr monitor electrolytes NPO in light of GI bleed dvt ppx: SCDS in light of GI bleed Problem List - Problems (1) Acute and chronic respiratory failure Code(s): J96.20 - ACUTE AND CHR RESP FAILURE, UNSP W HYPOXIA OR HYPERCAPNIA (2) Anemia Code(s): D64.9 - ANEMIA, UNSPECIFIED (3) Atrial flutter Code(s): I48.92 - UNSPECIFIED ATRIAL FLUTTER (4) Diabetes mellitus Code(s): E11.9 - TYPE 2 DIABETES MELLITUS WITHOUT COMPLICATIONS (5) GI bleed Code(s): K92.2 - GASTROINTESTINAL HEMORRHAGE, UNSPECIFIED (6) HTN (hypertension) Code(s): I10 - ESSENTIAL (PRIMARY) HYPERTENSION Visit type - Emergency Visit Emergency Visit: Yes ED Registration Date: 03/31/19 Care time: The patient presented to the Emergency Department on the above date and was hospitalized for further evaluation of their emergent condition. - New Patient This patient is new to me today: Yes Date on this admission: 04/13/19 - Critical Care Critical Care patient: Yes Total Critical Care Time (in minutes): 35 Critical Care Statement: The care of this patient involved high complexity decision making to prevent further life threatening deterioration of the patient's condition and/or to evaluate & treat vital organ system(s) failure or risk of failure. ATTENDING PHYSICIAN STATEMENT I saw and evaluated the patient. I reviewed the resident's note and discussed the case with the resident. I agree with the resident's findings and plan as documented. SUBJECTIVE: OBJECTIVE: ASSESSMENT AND PLAN:
[2019-04-13] MEDS: PANTOPRAZOLE SODIUM 40 MG VIAL IVPUSH SCH (13:00)
[2019-04-13] MEDS ORDERED: METOPROLOL TARTRATE 5 MG/5 ML VIAL IVPUSH PRN (13:01)
[2019-04-13 13:27] LABS: INR 1.76 (0.83-1.09); PROTHROMBIN TIME (PATIENT) 20.9 SEC (9.7-13.0)
[2019-04-13 13:30] LABS: ACTIVATED PTT 38.3 SECONDS (25.2-36.5)
--- NOTE | 2019-04-13 13:42 | PN ---
Progress Note (short form) - Note Progress Note: Patient just typed and crossed. copious liquid dark brown BM, strongly guaiac + . no gross blood. Sons were present at bedside. Consent obtained for procedure. Want DNR upheld Advised nurse to send stool for C. Diff Advised ICU resident to correct coagulopathy with FFP in setting of suspected bleeding Awaiting PRBC's PPI drip Timing of procedure to be based on clinical course. Problem List - Problems (1) Melena Code(s): K92.1 - MELENA
[2019-04-13] MEDS ORDERED: PT OWN MED DRAWER 7, Y5N ONE (14:26)
[2019-04-13] MEDS: PANTOPRAZOLE SODIUM 80 MG in SODIUM CHLORIDE 100 ML IVPB SCH ×2 (14:30→23:11)
[2019-04-13] MEDS: GENTAMICIN IVPB SCH (21:21)
[2019-04-13] MEDS: SODIUM CHLORIDE IVPB SCH (21:21)
[2019-04-13] MEDS ORDERED: PANTOPRAZOLE SODIUM 40 MG VIAL IVPUSH SCH (22:00)
[2019-04-14] MEDS: dilTIAZem HCL 30 MG TABLET (FP) NR SCH ×4 (00:02→18:27)
[2019-04-14] MEDS: METOPROLOL TARTRATE 50 MG TABLET (FP) PEG SCH ×4 (00:02→18:27)
[2019-04-14] MEDS ORDERED: DEXTROSE 5%-WATER 100 ML IVPB ONE ×3 (01:58→17:35)
[2019-04-14] MEDS ORDERED: PIPERACILLIN/TAZOBACTAM 4.5 GM VIAL IVPB ONE ×3 (01:58→17:35)
[2019-04-14] MEDS: PIPERACILLIN/TAZOB 4.5 GM 4.5 GM in DEXTROSE 5%-WATER 100 ML IVPB SCH ×3 (02:17→17:37)
[2019-04-14] MEDS: METOPROLOL TARTRATE 5 MG/5 ML VIAL IVPUSH PRN ×3 (03:31→22:06)
[2019-04-14 05:51] LABS: INR 1.39 (0.83-1.09); PROTHROMBIN TIME (PATIENT) 16.4 SEC (9.7-13.0)
[2019-04-14 06:02] LABS: HEMATOCRIT 18.9 % (35.4-49); MCH 30.9 pg (25.7-33.7); MCHC 32.1 g/dl (32.0-35.9); MEAN CELL VOLUME 96.3 fl (80-96); MEAN PLT VOLUME 8.6 fl (7.5-11.1); PLATELET COUNT 192 K/MM3 (134-434); RBC 1.96 M/mm3 (4.00-5.60); RDW 20.1 % (11.9-15.9); WHITE BLOOD COUNT 14.2 K/mm3 (4.0-10.0)
[2019-04-14 06:25] LABS: HEMOGLOBIN 6.1 GM/dL (11.7-16.9)
[2019-04-14 06:48] LABS: ALBUMIN 1.2 g/dl (3.4-5.0); BILIRUBIN,TOTAL 0.7 mg/dL (0.2-1); CALCIUM 7.1 mg/dL (8.5-10.1); CREATININE 1.1 mg/dL (0.55-1.3); MAGNESIUM 1.8 mg/dL (1.8-2.4); PHOSPHOROUS 2.6 mg/dL (2.5-4.9); POTASSIUM 3.7 mmol/L (3.5-5.1); TOT PROT 5.4 g/dl (6.4-8.2)
[2019-04-14] MEDS: INSULIN SLIDING SCALE (NOVOLOG) 1 VIAL SQ SCH ×4 (07:45→22:50)
[2019-04-14] MEDS ORDERED: PT OWN MED DRAWER 7, Y5N ONE ×3 (08:07→18:44)
--- NOTE | 2019-04-14 09:56 | PN ---
Progress Note (short form) - Note Progress Note: transferred to ICU for GI bleed febrile to 102 continues to have melena sputum culture with pseudomonas and MRSA Vital Signs Period Temp Pulse Resp BP Sys/Kang Pulse Ox Last 24 Hr 89-100 18-30 100-130/68-80 98-100 cor-rrr lungs decreased bsa t bases abd soft,+gt bilateral PCN ext no edema CBC, BMP 04/14/19 05:00 04/14/19 05:00 Microbiology 04/13/19 13:50 Stool Clostridioides difficile Antigen - Final 04/13/19 13:50 Stool Clostridioides difficile Toxin Assay - Final 04/06/19 19:30 Blood - Peripheral Venous Blood Culture - Final NO GROWTH AFTER 5 DAYS INCUBATION 04/06/19 19:30 Blood - Peripheral Venous Blood Culture - Final NO GROWTH AFTER 5 DAYS INCUBATION 04/08/19 07:50 Sputum - Endotrachea Suction/Ventilator Gram Stain - Final 04/08/19 07:50 Sputum - Endotrachea Suction/Ventilator Sputum Culture - Final Pseudomonas Aeruginosa Mr S Aureus 04/02/19 14:54 Peritoneal Fluid Gram Stain - Final 04/02/19 14:54 Peritoneal Fluid Body Fluid Culture - Final NO GROWTH OF AEROBIC ORGANISMS AFTER 48 HOURS INCUBATION 04/02/19 14:54 Peritoneal Fluid Anaerobic Culture - Final NO ANAEROBES WERE ISOLATED 04/02/19 14:54 Peritoneal Fluid AFB Smear Concentration - Preliminary 04/02/19 14:54 Peritoneal Fluid Mycobacterial Culture - Preliminary 03/31/19 01:27 Blood - Peripheral Venous Blood Culture - Final NO GROWTH AFTER 5 DAYS INCUBATION 03/31/19 01:27 Blood - Peripheral Venous Blood Culture - Final NO GROWTH AFTER 5 DAYS INCUBATION 04/02/19 14:54 Peritoneal Fluid ROB Preparation - Preliminary 04/02/19 14:54 Peritoneal Fluid Fungal Culture - Preliminary 03/31/19 02:17 Urine - Urine Nephrostomy Tube Left Urine Culture - Final Klebsiella Pneumoniae - Esbl ct scan bilateral effusions, lower lobe consolidations, ascites, no hydronephrosis a/p GI bleed- per GI ?aspiration pneumonia ?aspiration, colonized with resistant klebsiella (CRE) in urine has completed 7 days of gentamicin - will d/c continue zosyn reculture for fever 102 add vancomycin contact isolation for CRE overall prognosis is poor d/w ICU resident
--- NOTE | 2019-04-14 10:07 | PN ---
Teaching Attending Note Name of Resident: Lynette Martinez ATTENDING PHYSICIAN STATEMENT I saw and evaluated the patient. I reviewed the resident's note and discussed the case with the resident. I agree with the resident's findings and plan as documented. SUBJECTIVE: Pt seen and examined in the ICU. Vented, continues to have dark bowel movements. Anemic this AM. Heart rates variable. OBJECTIVE: Vital Signs Period Temp Pulse Resp BP Sys/Kang Pulse Ox Last 24 Hr 97.5 F-99.0 F 92-142 18-230 88-127/60-86 100-100 Intake & Output 04/11/19 04/12/19 04/13/19 04/14/19 23:59 23:59 23:59 23:59 Intake Total 835 0 1310 350 Output Total 500 700 320 100 Balance 335 -700 990 250 Weight 97.25 kg Gen: vented, arousable Heart: tachycardic, irregular Lung: decreased breath sounds at the bases Abd: soft, nontender Ext: no edema CBC, BMP 04/14/19 05:00 04/14/19 05:00 Active Medications Diltiazem HCl (Cardizem -) 30 mg NR Q6HPO [facility] Last Admin: 04/14/19 06:30 Dose: Not Given Piperacillin Sod/Tazobactam (Sod 4.5 gm/ Dextrose) 100 mls @ 200 mls/hr IVPB Q8H-IV [facility]; Protocol Last Admin: 04/14/19 02:17 Dose: 200 mls/hr Sodium Chloride (Normal Saline -) 1,000 mls @ 75 mls/hr IV ASDIR [facility] Last Admin: 04/13/19 12:47 Dose: 75 mls/hr Pantoprazole Sodium 80 mg/ (Sodium Chloride) 100 mls @ 10 mls/hr IVPB Q10H [facility] Last Admin: 04/13/19 23:11 Dose: 10 mls/hr Vancomycin HCl 1,250 mg/ (Dextrose) 250 mls @ 250 mls/2 hr IVPB DAILY [facility]; Protocol Insulin Aspart (Novolog Vial Sliding Scale -) 1 vial SQ ACHS [facility]; Protocol Last Admin: 04/14/19 07:45 Dose: Not Given Lisinopril (Prinivil) 5 mg PEG DAILY [facility] Last Admin: 04/13/19 09:44 Dose: Not Given Metoprolol Tartrate (Lopressor -) 50 mg PEG Q6HPO [facility] Last Admin: 04/14/19 06:30 Dose: Not Given Metoprolol Tartrate (Lopressor Injection -) 10 mg IVPUSH Q4H PRN PRN Reason: TACHYCARDIA Last Admin: 04/14/19 03:31 Dose: 10 mg Ondansetron HCl (Zofran Injection) 4 mg IVPUSH Q6H PRN PRN Reason: NAUSEA AND/OR VOMITING Sodium Chloride (Normal Saline For Inhalation -) 3 ml IH Q6H PRN PRN Reason: COUGH Last Admin: 04/10/19 04:00 Dose: 3 ml ASSESSMENT AND PLAN: Atrial Flutter with RVR GI Bleed Acute Blood Loss Anemia Chronic Respiratory Failure UTI/Pneumonia/Sepsis Lactic Acidosis CAD s/p CABG COPD HTN Hyperlipidemia Ascites - continue antibiotics - protonix gtt - monitor H/H - transfuse as needed - rate control - holding anticoagulation - GI f/u - NPO - DVT/GI prophylaxis - continue ICU monitoring for now
--- NOTE | 2019-04-14 10:25 | PN.GI ---
GI Progress Note Subjective: GI NOte ( covering Dr Vazquez): Hb down to 6. Melena overnight. G tube lavaged repeatedly and only bile stained fluid is obtained. No beckie blood. - Objective Vital Signs: Vital Signs Temperature 97.5 F L 04/14/19 06:00 Pulse Rate 130 H 04/14/19 06:00 Respiratory Rate 21 H 04/14/19 09:00 Blood Pressure 99/69 04/14/19 06:00 O2 Sat by Pulse Oximetry (%) 100 04/14/19 09:00 Laboratory Tests 04/12/19 04/13/19 04/14/19 06:45 07:10 05:00 Hgb 8.9 L 7.8 L 6.1 L* Laboratory Tests 03/31/19 04/13/19 04/14/19 08:50 12:00 05:00 PT with INR 17.70 H 20.90 H 16.40 H INR 1.49 H 1.76 H 1.39 H Constitutional: Other (Ventilated, noncommunicative) ...Auscultate: Yes: Normoactive Bowel Sounds ...Palpate: Yes: Soft, Other (nontender) Labs: CBC, BMP 04/14/19 05:00 04/14/19 05:00 INR, PTT INR 1.39 (0.83-1.09) H 04/14/19 05:00 Assessment/Plan Impression: - GI bleeding of undetermined etiology. Lack of blood in aspirated suggest it is distal to the reach of a routine upper endoscopy. Plan: -- Transfuse 2 units PRBCs -- Correct coagulopathy wth more FFP -- Will give Vitamin K -- If bleeding become more brisk will order CTA. If the G tube aspirate reveals blood then will undertake EGD/ Will discuss enteroscopy with Dr Vazquez when Ankit is adequately resuscitated Problem List - Problems (1) Acute and chronic respiratory failure Code(s): J96.20 - ACUTE AND CHR RESP FAILURE, UNSP W HYPOXIA OR HYPERCAPNIA (2) COPD (chronic obstructive pulmonary disease) Code(s): J44.9 - CHRONIC OBSTRUCTIVE PULMONARY DISEASE, UNSPECIFIED (3) Coffee ground emesis Code(s): K92.0 - HEMATEMESIS (4) GI bleed Code(s): K92.2 - GASTROINTESTINAL HEMORRHAGE, UNSPECIFIED (5) Melena Code(s): K92.1 - MELENA
[2019-04-14] MEDS: PANTOPRAZOLE SODIUM 80 MG in SODIUM CHLORIDE 100 ML IVPB SCH ×2 (10:37→20:45)
[2019-04-14] MEDS: LISINOPRIL 5 MG TABLET (FP) PEG SCH (10:38)
--- NOTE | 2019-04-14 11:17 | PN ---
Physical Exam: SUBJECTIVE: Patient seen and examined. Still with black, liquid stools overnight, up to about 200mls. Draining Urine up to 250mls from R nephrostomy tube, left no drainage. Received 1 dose of iv labetalol this am. Had maintained HR <120s. Appears to have had a temperature up to 102.2 on the machine not noted in chart. OBJECTIVE: Vital Signs Period Temp Pulse Resp BP Sys/Kang Pulse Ox Last 24 Hr 97.5 F-99.0 F 92-142 18-28 88-116/60-85 100-100 Vital Signs Temp 97.8 F 04/14/19 08:00 Pulse 141 H 04/14/19 11:15 Resp 24 H 04/14/19 10:00 BP 116/81 04/14/19 11:15 Pulse Ox 100 04/14/19 09:00 Intake & Output 04/13/19 04/14/19 04/14/19 23:59 11:59 23:59 Intake Total 950 350 Output Total 310 100 Balance 640 250 Weight 97.25 kg Intake: IV 150 Normal Saline - 1,000 ml 150 @ 75 mls/hr IV ASDIR [facility] Rx#:[id number] IVPB 450 350 Packed Cells 350 Output: Urine 310 100 Left Nephrostomy 10 Right Nephrostomy 300 100 Other: Voiding Method Indwelling Catheter Indwelling Catheter Bowel Movement No Yes # Bowel Movements 2 Weight Measurement Method Built in [facility] GENERAL: The patient is awake, alert, non verbal, in some distress while being changed in the am EYES: Spontaneous eye opening ENT: Trach to vent-Ac NECK: Trach to vent-Ac LUNGS: Rnonchi HEART: Tachycardic S1, S2 ABDOMEN: Gtube, b/l nephrostomy tubes, R draining clear urine EXTREMITIES: 2+ pulses, warm, well-perfused, no edema. NEUROLOGICAL: Non verbal moves extremities KIMI: 4x 6cm saccral ulcer, clean base, no erythema CBC, BMP 04/14/19 05:00 04/14/19 05:00 Laboratory Results - last 24 hr 04/13/19 04/13/19 04/13/19 12:00 12:00 12:57 WBC RBC Hgb Hct MCV MCH MCHC RDW Plt Count MPV PT with INR 20.90 H INR 1.76 H PTT (Actin FS) 38.3 H Sodium Potassium Chloride Carbon Dioxide Anion Gap BUN Creatinine Est GFR (CKD-EPI)AfAm Est GFR (CKD-EPI)NonAf POC Glucometer 87 Random Glucose Calcium Phosphorus Magnesium Total Bilirubin AST ALT Alkaline Phosphatase Total Protein Albumin Stool Occult Blood Blood Type O NEGATIVE Antibody Screen Negative Crossmatch See Detail 04/13/19 04/13/19 04/14/19 12:57 22:03 05:00 WBC 14.2 H RBC 1.96 L Hgb 6.1 L* Hct 18.9 L D MCV 96.3 H MCH 30.9 MCHC 32.1 RDW 20.1 H Plt Count 192 MPV 8.6 PT with INR INR PTT (Actin FS) Sodium Potassium Chloride Carbon Dioxide Anion Gap BUN Creatinine Est GFR (CKD-EPI)AfAm Est GFR (CKD-EPI)NonAf POC Glucometer 77 Random Glucose Calcium Phosphorus Magnesium Total Bilirubin AST ALT Alkaline Phosphatase Total Protein Albumin Stool Occult Blood Positive Blood Type Antibody Screen Crossmatch 04/14/19 04/14/19 04/14/19 05:00 05:00 11:01 WBC RBC Hgb Hct MCV MCH MCHC RDW Plt Count MPV PT with INR 16.40 H INR 1.39 H PTT (Actin FS) Sodium 145 Potassium 3.7 Chloride 116 H Carbon Dioxide 24 Anion Gap 5 L BUN 38.0 H Creatinine 1.1 Est GFR (CKD-EPI)AfAm 72.07 Est GFR (CKD-EPI)NonAf 62.19 POC Glucometer 77 Random Glucose 79 Calcium 7.1 L Phosphorus 2.6 Magnesium 1.8 Total Bilirubin 0.7 AST 19 ALT 19 Alkaline Phosphatase 142 H Total Protein 5.4 L Albumin 1.2 L Stool Occult Blood Blood Type Antibody Screen Crossmatch Active Medications Generic Name Dose Route Start Last Admin Trade Name Freq PRN Reason Stop Dose Admin Diltiazem HCl 30 mg 04/13/19 04:31 04/14/19 11:14 Cardizem - NR Not Given Q6HPO BASSEM Piperacillin Sod/Tazobactam 100 mls @ 200 mls/hr 04/08/19 18:00 04/14/19 10:37 Sod 4.5 gm/ Dextrose IVPB 200 mls/hr Q8H-IV BASSEM Administration Protocol Sodium Chloride 1,000 mls @ 75 mls/hr 04/13/19 11:15 04/13/19 12:47 Normal Saline - IV 75 mls/hr ASDIR BASSEM Administration Pantoprazole Sodium 80 mg/ 100 mls @ 10 mls/hr 04/13/19 12:45 04/14/19 10:37 Sodium Chloride IVPB 10 mls/hr Q10H BASSEM Administration 8 MG/HR Vancomycin HCl 1,250 mg/ 250 mls @ 250 mls/2 hr 04/14/19 11:00 Dextrose IVPB DAILY BASSEM Protocol Insulin Aspart 1 vial 04/09/19 11:00 04/14/19 11:03 Novolog Vial Sliding Scale - SQ Not Given ACHS [facility] Protocol Lisinopril 5 mg 04/02/19 10:00 04/14/19 10:38 Prinivil PEG Not Given DAILY [facility] Metoprolol Tartrate 50 mg 04/02/19 01:00 04/14/19 06:30 Lopressor - PEG Not Given Q6HPO BASSEM Metoprolol Tartrate 10 mg 04/13/19 13:12 04/14/19 11:15 Lopressor Injection - IVPUSH 10 mg Q4H PRN Administration TACHYCARDIA Ondansetron HCl 4 mg 04/06/19 02:10 Zofran Injection IVPUSH Q6H PRN NAUSEA AND/OR VOMITING Sodium Chloride 3 ml 04/02/19 02:23 04/10/19 04:00 Normal Saline For Inhalation - IH 3 ml Q6H PRN Administration COUGH Current Medications Diltiazem HCl (Cardizem -) 30 mg NR Q6HPO BASSEM Last Admin: 04/14/19 11:14 Dose: Not Given Piperacillin Sod/Tazobactam (Sod 4.5 gm/ Dextrose) 100 mls @ 200 mls/hr IVPB Q8H-IV BASSEM; Protocol Last Admin: 04/14/19 10:37 Dose: 200 mls/hr Sodium Chloride (Normal Saline -) 1,000 mls @ 75 mls/hr IV ASDIR BASSEM Last Admin: 04/13/19 12:47 Dose: 75 mls/hr Pantoprazole Sodium 80 mg/ (Sodium Chloride) 100 mls @ 10 mls/hr IVPB Q10H BASSEM Last Admin: 04/14/19 10:37 Dose: 10 mls/hr Vancomycin HCl 1,250 mg/ (Dextrose) 250 mls @ 250 mls/2 hr IVPB DAILY BASSEM; Prot ocol Insulin Aspart (Novolog Vial Sliding Scale -) 1 vial SQ ACHS [facility]; Protocol Last Admin: 04/14/19 11:03 Dose: Not Given Lisinopril (Prinivil) 5 mg PEG DAILY [facility] Last Admin: 04/14/19 10:38 Dose: Not Given Metoprolol Tartrate (Lopressor -) 50 mg PEG Q6HPO [facility] Last Admin: 04/14/19 06:30 Dose: Not Given Metoprolol Tartrate (Lopressor Injection -) 10 mg IVPUSH Q4H PRN PRN Reason: TACHYCARDIA Last Admin: 04/14/19 11:15 Dose: 10 mg Ondansetron HCl (Zofran Injection) 4 mg IVPUSH Q6H PRN PRN Reason: NAUSEA AND/OR VOMITING Sodium Chloride (Normal Saline For Inhalation -) 3 ml IH Q6H PRN PRN Reason: COUGH Last Admin: 04/10/19 04:00 Dose: 3 ml Records obtained from [facility] on 04/14/19 shows: Medlist-05/28/18 ASA-81mg Dilt 180mg daily Eliquis 5mg bid Fish oil 1200/360mg Lasix-40mg daily Klor-Con 20meq- 0.5tablet Labetalol 200mg bid preservision AREDs-Vit A,C, E, Zinc-Cu Ramipril 10mg bid ASSESSMENT/PLAN: 83 y/o male with PMH of CABG, ESRD s/p nephrostomy tubes, Pneumonia, Chronic Respiratory Failure s/p Tracheotomy/ Vent dependent, PEG tube, Diabetes Mellitus, Anemia who initally presented to the hospital with complaints of coffee ground emesis, is now back in ICU for due to tachycardia secondary to GI bleed #Neuro alert; no issues NPO for GI bleed #Cardio PMH of CABG, Afib -GT meds on hold as PO due to GI bleed -Cont lopressor pushes for tachycardia HR>120/hr 5mg), 10mg for tachycardia>140/hr -BP meds ion hold (NPO) -transfusion threshold if Hgb <8 given cardiac history #Endocrine Diabetes Mellitus -ISS ACHS -BGMS ACHS #GI patient currently having melena -GI on board -PPI drip -transfusion threshold Hgb <8 -NS @75mls -will need endoscopy once hemodynamically stable #Heme Received 1PRBC and 1 FFP yesterday Still with black stool Dr Ortiz aspirated GT which showed greenish tinged flyuid, no beckie blood noted, (per Dr Ortiz, bleeding may either be a trickle or distal to GT point and may not benefit from endoscopy at this time) Hgb back down to 6.1, will receive 2PRBCs and 1 FFP post transfusion CBC pending #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 in sputum; Presumed temp to 102.2 (not in chart), blood cultures pending, Vanc/zosyn [address] Sanders #Pulm On trach to vent Chronic Respiratory Failure; pneumonia vent dependent; CXR B/L effusions L>R w/ atelectasis sputum cx growing MRSA zosyn and gentamycin d/cd (per Dr Sanders, pt is colonized) monitor 02 sats F/E/N Cont transfusion monitor electrolytes NPO in light of GI bleed dvt ppx: SCDS in light of GI bleed Dispo: For stabilization of hemodynamics, to reevaluate after transfusions Visit type - Emergency Visit Emergency Visit: Yes ED Registration Date: 03/31/19 Care time: The patient presented to the Emergency Department on the above date and was hospitalized for further evaluation of their emergent condition. - New Patient This patient is new to me today: No - Critical Care Critical Care patient: Yes Total Critical Care Time (in minutes): 40 Critical Care Statement: The care of this patient involved high complexity decision making to prevent further life threatening deterioration of the patient's condition and/or to evaluate & treat vital organ system(s) failure or risk of failure. - Discharge Referral Referred to [facility] Med P.C.: No ATTENDING PHYSICIAN STATEMENT I saw and evaluated the patient. I reviewed the resident's note and discussed the case with the resident. I agree with the resident's findings and plan as documented. SUBJECTIVE: OBJECTIVE: ASSESSMENT AND PLAN:
[2019-04-14] MEDS ORDERED: METOPROLOL TARTRATE 5 MG/5 ML VIAL IVPUSH PRN (13:12)
[2019-04-14] MEDS: SODIUM CHLORIDE 1,000 ML IV SCH (13:27)
[2019-04-14] MEDS: VANCOMYCIN HCL 1,250 MG in DEXTROSE 5%-WATER - 250 ML IVPB SCH (13:27)
[2019-04-14] MEDS ORDERED: PHYTONADIONE 10 MG/1 ML AMP IVPB ONE (14:00)
[2019-04-14] MEDS ORDERED: MORPHINE SULFATE 2 MG/ML VIAL ONE (14:09)
[2019-04-14] MEDS: MORPHINE SULFATE 2 MG/ML VIAL IVPUSH PRN (14:11)
--- NOTE | 2019-04-14 14:34 | PN ---
Progress Note, Physician Chief Complaint: Acute on Chronic Respiratory Failure UTI Ascites History of Present Illness: NAD mechanical vent Daughter at bedside - Current Medication List Current Medications: Active Medications Diltiazem HCl (Cardizem -) 30 mg NR Q6HPO BASSEM Last Admin: 04/14/19 11:14 Dose: Not Given Piperacillin Sod/Tazobactam (Sod 4.5 gm/ Dextrose) 100 mls @ 200 mls/hr IVPB Q8H-IV BASSEM; Protocol Last Admin: 04/14/19 10:37 Dose: 200 mls/hr Sodium Chloride (Normal Saline -) 1,000 mls @ 75 mls/hr IV ASDIR BASSEM Last Admin: 04/14/19 13:27 Dose: 75 mls/hr Pantoprazole Sodium 80 mg/ (Sodium Chloride) 100 mls @ 10 mls/hr IVPB Q10H BASSEM Last Admin: 04/14/19 10:37 Dose: 10 mls/hr Vancomycin HCl 1,250 mg/ (Dextrose) 250 mls @ 250 mls/2 hr IVPB DAILY [facility]; Protocol Last Admin: 04/14/19 13:27 Dose: 250 mls/2 hr Insulin Aspart (Novolog Vial Sliding Scale -) 1 vial SQ ACHS [facility]; Protocol Last Admin: 04/14/19 11:03 Dose: Not Given Lisinopril (Prinivil) 5 mg PEG DAILY [facility] Last Admin: 04/14/19 10:38 Dose: Not Given Metoprolol Tartrate (Lopressor -) 50 mg PEG Q6HPO [facility] Last Admin: 04/14/19 12:39 Dose: Not Given Metoprolol Tartrate (Lopressor Injection -) 5 mg IVPUSH Q4H PRN PRN Reason: HYPERTENSION Metoprolol Tartrate (Lopressor Injection -) 10 mg IVPUSH Q4H PRN PRN Reason: TACHYCARDIA Morphine Sulfate (Morphine Sulfate) 2 mg IVPUSH Q4H PRN PRN Reason: PAIN LEVEL 6-10 Last Admin: 04/14/19 14:11 Dose: 2 mg Ondansetron HCl (Zofran Injection) 4 mg IVPUSH Q6H PRN PRN Reason: NAUSEA AND/OR VOMITING Sodium Chloride (Normal Saline For Inhalation -) 3 ml IH Q6H PRN PRN Reason: COUGH Last Admin: 04/10/19 04:00 Dose: 3 ml - Objective Vital Signs: Vital Signs Temperature 97.8 F 04/14/19 08:00 Pulse Rate 141 H 04/14/19 11:15 Respiratory Rate 26 H 04/14/19 13:00 Blood Pressure 116/81 04/14/19 11:15 O2 Sat by Pulse Oximetry (%) 100 04/14/19 09:00 Constitutional: Yes: Well Nourished, No Distress, Calm Cardiovascular: Yes: Regular Rate and Rhythm Respiratory: Yes: Mechanically Ventilated, Rhonchi (diffuse) Gastrointestinal: Yes: Normal Bowel Sounds, Soft, Distention Genitourinary: Yes: Huber Present Musculoskeletal: Yes: Other (generalized atrophy) Extremities: Yes: WNL Edema: Yes Edema: LLE: 1+, RLE: 1+ Peripheral Pulses WNL: Yes Neurological: Yes: Alert, Pre-Existing Deficit Psychiatric: Yes: Alert Labs: CBC, BMP 04/14/19 05:00 04/14/19 05:00 INR, PTT INR 1.39 (0.83-1.09) H 04/14/19 05:00 Assessment/Plan (1) Acute and chronic respiratory failure Assessment/Plan: -Pulm on board -Mechanically Ventilated -keep SpO2 >90% -CXR shows cardiomegaly, left basilar compressive atelectasis, left pleural effusion, right pleural effusion -Sputum Culture positive for MRSA Code(s): J96.20 - ACUTE AND CHR RESP FAILURE, UNSP W HYPOXIA OR HYPERCAPNIA (2) Anemia Assessment/Plan: -received 1 unit of PRBC+ 1 unit FFP, awaitng 2nd unit of PRBC today -monitor Hg daily and transfuse for Hg <7.0 to avoid fluid overload -GI and Hematology on board Code(s): D64.9 - ANEMIA, UNSPECIFIED (3) Atrial flutter Assessment/Plan: -Metoprolol and Cardizem -Cardiology on board Code(s): I48.92 - UNSPECIFIED ATRIAL FLUTTER (4) COPD (chronic obstructive pulmonary disease) Assessment/Plan: -Pulm on board -Mechanically Ventilated -keep SpO2 >90% -CXR shows cardiomegaly, left basilar compressive atelectasis, left pleural effusion, right pleural effusion Code(s): J44.9 - CHRONIC OBSTRUCTIVE PULMONARY DISEASE, UNSPECIFIED (5) Diabetes mellitus Assessment/Plan: -BGM ACHS -ISS Code(s): E11.9 - TYPE 2 DIABETES MELLITUS WITHOUT COMPLICATIONS (6) GI bleed Assessment/Plan: -GI on board -no reports of hematemesis or melena -Pantoprazole -GT aspiration shows no bleeding -GI to decide whether to do EGD or colonoscopy Code(s): K92.2 - GASTROINTESTINAL HEMORRHAGE, UNSPECIFIED (7) HTN (hypertension) Assessment/Plan: -Lisinopril Code(s): I10 - ESSENTIAL (PRIMARY) HYPERTENSION (8) SBO (small bowel obstruction) Assessment/Plan: -CTAP shows no evidence of bowel obstruction -GI on board Code(s): K56.609 - UNSP INTESTNL OBST, UNSP TO PARTIAL VERSUS COMPLETE OBST (9) Ascites Assessment/Plan: -s/p paracentesis -Ascites Fluid specimen noted albumin 1.8 with elevated globulins, 2+ proteinuria, macrocytic anemia raise suspicion for hematologic malingnancy -Hematology on board Code(s): R18.8 - OTHER ASCITES (10) Sepsis Assessment/Plan: -ID on board -Leukocytosis -afebrile -Sputum Culture positive for MRSA -BC neg -UC positive ESBL, Klebsiella -Vanco and Zosyn -CXR shows cardiomegaly, left basilar compressive atelectasis, left pleural effusion, right pleural effusion Code(s): A41.9 - SEPSIS, UNSPECIFIED ORGANISM Assessment/Plan see problem list dvt ppx
--- NOTE | 2019-04-14 16:46 | PN ---
Progress Note (short form) - Note Progress Note: Per records from [facility] -Echocardiogram 06/10/2018 -EF of 45-50% mild AVR, MVR and TVR boderline reduction in right ventricular systolic function -pt had respiratory arrest due to mucus plug s/p tacheostomy and PEG on 06/11 ad 06/25 admitted for purulent drainage from sternal wound. course complicated with MRSA and pseudomonas aeruginosa bacteremia. 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
[2019-04-14 16:57] LABS: INR 1.47 (0.83-1.09); PROTHROMBIN TIME (PATIENT) 17.4 SEC (9.7-13.0)
[2019-04-14] MEDS ORDERED: DEXTROSE 50%-WATER - 25 GM/50 ML VIAL IVPUSH ONE (16:57)
[2019-04-14] MEDS ORDERED: DEXTROSE 50%-WATER 25 GM/50 ML DISP.SYRIN ONE (17:35)
[2019-04-14] MEDS: DEXTROSE 5%-LACTATED RINGERS 1,000 ML IV SCH (17:42)
[2019-04-14 20:08] LABS: BASO % 0.3 % (0-2.0); EOS % 1.4 % (0-4.5); HEMATOCRIT 22.5 % (35.4-49); HEMOGLOBIN 7.2 GM/dL (11.7-16.9); LYMPH % 5.2 % (8-40); MCH 29.8 pg (25.7-33.7); MCHC 32.2 g/dl (32.0-35.9); MEAN CELL VOLUME 92.4 fl (80-96); MEAN PLT VOLUME 8.4 fl (7.5-11.1); MONO % 4.5 % (3.8-10.2); NEUT % 88.6 % (42.8-82.8); PLATELET COUNT 176 K/MM3 (134-434); RBC 2.43 M/mm3 (4.00-5.60); RDW 20.4 % (11.9-15.9); WHITE BLOOD COUNT 15.4 K/mm3 (4.0-10.0)
[2019-04-14 20:22] LABS: INR 1.44 (0.83-1.09); PROTHROMBIN TIME (PATIENT) 17.1 SEC (9.7-13.0)
[2019-04-14 21:53] LABS: ANISOCYTOSIS 1+; PLATELET ESTIMATE ADEQUATE
--- NOTE | 2019-04-14 22:23 | PN ---
Progress Note (short form) - Note Progress Note: Pt refused 2PRBCs and 1FFP with iv vitamin K 10mg and Hgb went from 6.1>>7.2 Pt passed significant amounts of black colored liquid stools earlier in the day. When I aspirated the GT it showed reddish colored fluid with clots. Plan: 2PRBCs re-ordered D/W Pt's daughter Beulah- still waqnted blood given but updates in am as to whether or not there was appropriate response, willing to discuss with GI tomorrow about next steps forward D/W Dr Ortiz- due to clots in the tube, CTA will not be appropriate, will continue resuscitation overnight for GI eval tomorrow for possible endoscopy
--- NOTE | 2019-04-14 23:29 | PN ---
Progress Note (short form) - Note Progress Note: GI NOte; Contacted by resident that blood clots were obtained on G tube lavage. The Hb is 7.2 and vital sins are stable. A small black BM was noted on my arrival. Abd: G tube lavaged=no clots, only a small volume diluted blood was obtained at present. I contacted Ankit's daughter to discuss his situation. She wants full measures to be undertaken. Will resuscitate with blood tonight and reassess in the AM Problem List - Problems (1) Acute and chronic respiratory failure Code(s): J96.20 - ACUTE AND CHR RESP FAILURE, UNSP W HYPOXIA OR HYPERCAPNIA (2) COPD (chronic obstructive pulmonary disease) Code(s): J44.9 - CHRONIC OBSTRUCTIVE PULMONARY DISEASE, UNSPECIFIED (3) Coffee ground emesis Code(s): K92.0 - HEMATEMESIS (4) GI bleed Code(s): K92.2 - GASTROINTESTINAL HEMORRHAGE, UNSPECIFIED (5) Melena Code(s): K92.1 - MELENA
[2019-04-15] MEDS ORDERED: OCTREOTIDE ACETATE 50 MCG/1 ML - 1 ML VIAL IVPUSH ONE
[2019-04-15] MEDS: OCTREOTIDE ACETATE 200 MCG, OCTREOTIDE ACETATE 1,000 MCG in DEXTROSE 5%-WATER - 496 ML IVPB SCH ×2 (00:17→23:22)
[2019-04-15] MEDS: dilTIAZem HCL 30 MG TABLET (FP) NR SCH ×4 (00:18→19:01)
[2019-04-15] MEDS: METOPROLOL TARTRATE 50 MG TABLET (FP) PEG SCH ×4 (00:18→17:02)
[2019-04-15] MEDS ORDERED: DEXTROSE 5%-WATER 100 ML IVPB ONE ×3 (01:12→17:08)
[2019-04-15] MEDS ORDERED: PIPERACILLIN/TAZOBACTAM 4.5 GM VIAL IVPB ONE ×3 (01:12→17:08)
[2019-04-15] MEDS: PIPERACILLIN/TAZOB 4.5 GM 4.5 GM in DEXTROSE 5%-WATER 100 ML IVPB SCH ×3 (01:30→17:27)
[2019-04-15] MEDS: METOPROLOL TARTRATE 5 MG/5 ML VIAL IVPUSH PRN ×6 (02:16→23:01)
[2019-04-15] MEDS: INSULIN SLIDING SCALE (NOVOLOG) 1 VIAL SQ SCH ×4 (06:55→21:15)
[2019-04-15 07:08] LABS: BASO % 0.2 % (0-2.0); EOS % 1.9 % (0-4.5); HEMATOCRIT 26.7 % (35.4-49); HEMOGLOBIN 8.9 GM/dL (11.7-16.9); LYMPH % 4.5 % (8-40); MCHC 33.5 g/dl (32.0-35.9); MEAN CELL VOLUME 89.6 fl (80-96); MEAN PLT VOLUME 8.7 fl (7.5-11.1); MONO % 4.1 % (3.8-10.2); NEUT % 89.3 % (42.8-82.8); PLATELET COUNT 160 K/MM3 (134-434); RBC 2.98 M/mm3 (4.00-5.60); RDW 18.6 % (11.9-15.9); WHITE BLOOD COUNT 14.7 K/mm3 (4.0-10.0)
[2019-04-15 07:15] LABS: ALBUMIN 1.3 g/dl (3.4-5.0); BILIRUBIN,TOTAL 1.8 mg/dL (0.2-1); BLOOD UREA NITROGEN 38.2 mg/dL (7-18); CALCIUM 7.2 mg/dL (8.5-10.1); CREATININE 1.2 mg/dL (0.55-1.3); MAGNESIUM 1.9 mg/dL (1.8-2.4); PHOSPHOROUS 2.8 mg/dL (2.5-4.9); POTASSIUM 3.7 mmol/L (3.5-5.1); TOT PROT 5.6 g/dl (6.4-8.2)
[2019-04-15 07:28] LABS: INR 1.36 (0.83-1.09); PROTHROMBIN TIME (PATIENT) 16.1 SEC (9.7-13.0)
[2019-04-15] MEDS ORDERED: PT OWN MED DRAWER 7, Y5N ONE (08:08)
[2019-04-15] MEDS ORDERED: EPINEPHrine 1:10,000 (P-F SYR) 1 MG/10 ML DISP.SYRIN IVPUSH ONE (09:40)
[2019-04-15 09:49] LABS: ANISOCYTOSIS 1+; MACROCYTOSIS 0; PLATELET ESTIMATE NORMAL
--- NOTE | 2019-04-15 10:02 | PN ---
Physical Exam: SUBJECTIVE: Patient seen and examined in the morning. Overnight patient was continuing to have melena, and was transfused 2 units of PRBC. In the morning patient was having a large episode of melena and was taken to endoscopy. On cardiac monitoring patient has episodes of sinus tachycardia throughout the night, with no episodes of SVT, Vfib, Vtach. OBJECTIVE: Vital Signs Period Temp Pulse Resp BP Sys/Kang Pulse Ox Last 24 Hr 97.2 F-97.8 F 94-143 14-30 99-125/60-86 100-100 GENERAL: The patient is awake, alert. HEAD: Normal with no signs of trauma. NECK: Tracheostomy in plac.e LUNGS: Breath sounds equal, clear to auscultation bilaterally. HEART: Tachycardic, s1 s2 present, no murmurs. ABDOMEN: Soft, nontender, nondistended, normoactive bowel sounds, gastrostomy tube in place with no erythema around site. Nephrostomy tubes in place with no erythema. EXTREMITIES: 2+ pulses, warm, well-perfused, no edema. SKIN: 4x 6cm saccral ulcer, clean base, no erythema Laboratory Results - last 24 hr 04/13/19 04/14/19 04/14/19 12:00 11:01 15:45 WBC RBC Hgb Hct MCV MCH MCHC RDW Plt Count MPV Absolute Neuts (auto) Total Counted Neutrophils % Neutrophils % (Manual) Band Neutrophils % Lymphocytes % Lymphocytes % (Manual) Monocytes % Monocytes % (Manual) Eosinophils % Basophils % Nucleated RBC % Metamyelocytes Hypochromia Platelet Estimate Platelet Comment Polychromasia Anisocytosis Microcytosis PT with INR 17.40 H INR 1.47 H Sodium Potassium Chloride Carbon Dioxide Anion Gap BUN Creatinine Est GFR (CKD-EPI)AfAm Est GFR (CKD-EPI)NonAf POC Glucometer 77 Random Glucose Calcium Phosphorus Magnesium Total Bilirubin AST ALT Alkaline Phosphatase Total Protein Albumin Blood Type O NEGATIVE Antibody Screen Negative Crossmatch See Detail 04/14/19 04/14/19 04/14/19 16:53 19:45 19:45 WBC 15.4 H RBC 2.43 L Hgb 7.2 L Hct 22.5 L D MCV 92.4 MCH 29.8 MCHC 32.2 RDW 20.4 H Plt Count 176 MPV 8.4 Absolute Neuts (auto) 13.6 H Total Counted 100 Neutrophils % 88.6 H Neutrophils % (Manual) 85.0 H Band Neutrophils % 1.0 Lymphocytes % 5.2 L D Lymphocytes % (Manual) 5.0 L D Monocytes % 4.5 Monocytes % (Manual) 6 D Eosinophils % 1.4 Basophils % 0.3 Nucleated RBC % 0 Metamyelocytes 3 H D Hypochromia 1+ Platelet Estimate Adequate Platelet Comment No clumping noted Polychromasia 1+ Anisocytosis 1+ Microcytosis 1+ PT with INR 17.10 H INR 1.44 H Sodium Potassium Chloride Carbon Dioxide Anion Gap BUN Creatinine Est GFR (CKD-EPI)AfAm Est GFR (CKD-EPI)NonAf POC Glucometer 71 Random Glucose Calcium Phosphorus Magnesium Total Bilirubin AST ALT Alkaline Phosphatase Total Protein Albumin Blood Type Antibody Screen Crossmatch 04/14/19 04/15/19 04/15/19 22:18 06:10 06:10 WBC 14.7 H RBC 2.98 L Hgb 8.9 L Hct 26.7 L D MCV 89.6 MCH 30.0 MCHC 33.5 RDW 18.6 H Plt Count 160 MPV 8.7 Absolute Neuts (auto) 13.2 H Total Counted Neutrophils % 89.3 H Neutrophils % (Manual) Band Neutrophils % Lymphocytes % 4.5 L Lymphocytes % (Manual) Monocytes % 4.1 Monocytes % (Manual) Eosinophils % 1.9 Basophils % 0.2 Nucleated RBC % 0 Metamyelocytes Hypochromia Platelet Estimate Platelet Comment Polychromasia Anisocytosis Microcytosis PT with INR INR Sodium 147 H Potassium 3.7 Chloride 118 H Carbon Dioxide 22 Anion Gap 6 L BUN 38.2 H Creatinine 1.2 Est GFR (CKD-EPI)AfAm 64.88 Est GFR (CKD-EPI)NonAf 55.98 POC Glucometer 76 Random Glucose 88 Calcium 7.2 L Phosphorus 2.8 Magnesium 1.9 Total Bilirubin 1.8 H AST 24 ALT 15 Alkaline Phosphatase 131 H Total Protein 5.6 L Albumin 1.3 L Blood Type Antibody Screen Crossmatch 04/15/19 04/15/19 06:10 06:48 WBC RBC Hgb Hct MCV MCH MCHC RDW Plt Count MPV Absolute Neuts (auto) Total Counted Neutrophils % Neutrophils % (Manual) Band Neutrophils % Lymphocytes % Lymphocytes % (Manual) Monocytes % Monocytes % (Manual) Eosinophils % Basophils % Nucleated RBC % Metamyelocytes Hypochromia Platelet Estimate Platelet Comment Polychromasia Anisocytosis Microcytosis PT with INR 16.10 H INR 1.36 H Sodium Potassium Chloride Carbon Dioxide Anion Gap BUN Creatinine Est GFR (CKD-EPI)AfAm Est GFR (CKD-EPI)NonAf POC Glucometer 94 Random Glucose Calcium Phosphorus Magnesium Total Bilirubin AST ALT Alkaline Phosphatase Total Protein Albumin Blood Type Antibody Screen Crossmatch Active Medications Generic Name Dose Route Start Last Admin Trade Name Freq PRN Reason Stop Dose Admin Diltiazem HCl 30 mg 04/13/19 04:31 04/15/19 06:54 Cardizem - NR Not Given Q6HPO BASSEM Piperacillin Sod/Tazobactam 100 mls @ 200 mls/hr 04/08/19 18:00 04/15/19 08:59 Sod 4.5 gm/ Dextrose IVPB 200 mls/hr Q8H-IV BASSEM Administration Protocol Pantoprazole Sodium 80 mg/ 100 mls @ 10 mls/hr 04/13/19 12:45 04/14/19 20:45 Sodium Chloride IVPB 10 mls/hr Q10H BASSEM Administration 8 MG/HR Vancomycin HCl 1,250 mg/ 250 mls @ 250 mls/2 hr 04/14/19 11:00 04/14/19 13:27 Dextrose IVPB 250 mls/2 hr DAILY BASSEM Administration Protocol Dextrose/Lactated Ringer's 1,000 mls @ 42 mls/hr 04/14/19 17:15 04/14/19 17:42 D5-Lr - IV 42 mls/hr ASDIR BASSEM Administration Octreotide Acetate 200 mcg/ 500 mls @ 20.833 mls/hr 04/15/19 00:15 04/15/19 00:17 Octreotide Acetate 1,000 mcg/ IVPB 20.833 mls/hr Dextrose ASDIR BASSEM Administration Insulin Aspart 1 vial 04/09/19 11:00 04/15/19 06:55 Novolog Vial Sliding Scale - SQ Not Given ACHS BASSEM Protocol Lisinopril 5 mg 04/02/19 10:00 04/14/19 10:38 Prinivil PEG Not Given DAILY BASSEM Metoprolol Tartrate 50 mg 04/02/19 01:00 04/15/19 06:55 Lopressor - PEG Not Given Q6HPO BASSEM Metoprolol Tartrate 5 mg 04/14/19 13:38 04/15/19 08:23 Lopressor Injection - IVPUSH 5 mg Q4H PRN Administration HYPERTENSION Metoprolol Tartrate 10 mg 04/14/19 13:38 04/15/19 04:49 Lopressor Injection - IVPUSH 10 mg Q4H PRN Administration TACHYCARDIA Morphine Sulfate 2 mg 04/14/19 14:03 04/14/19 14:11 Morphine Sulfate IVPUSH 2 mg Q4H PRN Administration PAIN LEVEL 6-10 Ondansetron HCl 4 mg 04/06/19 02:10 Zofran Injection IVPUSH Q6H PRN NAUSEA AND/OR VOMITING Sodium Chloride 3 ml 04/02/19 02:23 04/10/19 04:00 Normal Saline For Inhalation - IH 3 ml Q6H PRN Administration COUGH ASSESSMENT/PLAN: 83 M with PMH of CABG, ESRD s/p nephrosotomy tubes, PNA, Chronic respiratory failure s/p tracheotomy, PEG tube, DM, anemia who is under care of ICU for tachycardia 2/2 to ongoing GI bleed. Neuro -Patient is alert. Will continue to monitor Cardiovascular -Patient has PMH of CABG, Afib. -Has been tachycardic likely 2/2 to anemia and having home medications held -Lopressor 10mg Q4H PRN for tachycardia >140, 5 mg if tachycarida: 120-139. -Transfusion threshold < 8 Pulm -Tracheostomy to vent; Vent settings VC/AC: VT of 400, RR 12, PEEP 5, FiO2 of 40 -Sputum culture growing MRSA -Vanc/Zoysn GI -Patient having multiple episodes of melena. Had BRBPR in the afternoon. Hemodynamically stable. -Was taken for endoscopy in the morning. Endoscopy did not show clear source of bleed -Patient was stable for CTA Abdomen/Pelvis. Imaging showed no extravasation and IR procedure was not performed. -GI consulted, appreciate recs Endocrine -Patient has hx of DM -ISS -BGMS ACHS Heme -Patient has been anemic throughout stay -Continues to have episodes of melena -Hgb of 8.9 in the AM after 2 units of PRBC. -GT aspirated which showed clots but no beckie blood ID -Patient has MRSA in sputum, and colonized with Klebsiella in urine -Started on Vanc/Zoysn by ID -ID consulted, appreciate recs F: D5/LR @42 ml/hr E: Monitor CMP N: NPO in GI bleed DVT: SCDs Dispo: ICU continuing following Visit type - Emergency Visit Emergency Visit: Yes ED Registration Date: 03/31/19 Care time: The patient presented to the Emergency Department on the above date and was hospitalized for further evaluation of their emergent condition. - New Patient This patient is new to me today: Yes Date on this admission: 04/15/19 - Critical Care Critical Care patient: Yes Total Critical Care Time (in minutes): 45 Critical Care Statement: The care of this patient involved high complexity decision making to prevent further life threatening deterioration of the patient's condition and/or to evaluate & treat vital organ system(s) failure or risk of failure. ATTENDING PHYSICIAN STATEMENT I saw and evaluated the patient. I reviewed the resident's note and discussed the case with the resident. I agree with the resident's findings and plan as documented. SUBJECTIVE: OBJECTIVE: ASSESSMENT AND PLAN:
[2019-04-15] MEDS ORDERED: EPINEPHrine 1:10,000 (P-F SYR) 1 MG/10 ML DISP.SYRIN ONE ×2 (10:12→11:00)
--- NOTE | 2019-04-15 11:18 | PN ---
Progress Note, Physician Chief Complaint: Acute on Chronic Respiratory Failure UTI Ascites History of Present Illness: NAD mechanical vent H/H much improved returned from EGD- source of bleeding still unidentifiable + melena/hematochezia Family frustrated of not being able to understand the source of emerging chronic and acute issues, mainly bleeding Has had bleeding from bladder in the past at [facility]-records reviewed Had rectal bleed in 04/2018, went to [facility] in [place], await records Awaiting records from [facility] and [facility] - Current Medication List Current Medications: Active Medications Diltiazem HCl (Cardizem -) 30 mg NR Q6HPO BASSEM Last Admin: 04/15/19 06:54 Dose: Not Given Piperacillin Sod/Tazobactam (Sod 4.5 gm/ Dextrose) 100 mls @ 200 mls/hr IVPB Q8H-IV BASSEM; Protocol Last Admin: 04/15/19 08:59 Dose: 200 mls/hr Pantoprazole Sodium 80 mg/ (Sodium Chloride) 100 mls @ 10 mls/hr IVPB Q10H BASSEM Last Admin: 04/14/19 20:45 Dose: 10 mls/hr Vancomycin HCl 1,250 mg/ (Dextrose) 250 mls @ 250 mls/2 hr IVPB DAILY BASSEM; Protocol Last Admin: 04/14/19 13:27 Dose: 250 mls/2 hr Dextrose/Lactated Ringer's (D5-Lr -) 1,000 mls @ 42 mls/hr IV ASDIR BASSEM Last Admin: 04/14/19 17:42 Dose: 42 mls/hr Octreotide Acetate 200 mcg/Octreotide Acetate 1,000 mcg/Dextrose 500 mls @ 20.833 mls/hr IVPB ASDIR BASSEM Last Admin: 04/15/19 00:17 Dose: 20.833 mls/hr Insulin Aspart (Novolog Vial Sliding Scale -) 1 vial SQ ACHS BASSEM; Protocol Last Admin: 04/15/19 06:55 Dose: Not Given Lisinopril (Prinivil) 5 mg PEG DAILY BASSEM Last Admin: 04/14/19 10:38 Dose: Not Given Metoprolol Tartrate (Lopressor -) 50 mg PEG Q6HPO BASSEM Last Admin: 04/15/19 06:55 Dose: Not Given Metoprolol Tartrate (Lopressor Injection -) 5 mg IVPUSH Q4H PRN PRN Reason: HYPERTENSION Last Admin: 04/15/19 08:23 Dose: 5 mg Metoprolol Tartrate (Lopressor Injection -) 10 mg IVPUSH Q4H PRN PRN Reason: TACHYCARDIA Last Admin: 04/15/19 04:49 Dose: 10 mg Morphine Sulfate (Morphine Sulfate) 2 mg IVPUSH Q4H PRN PRN Reason: PAIN LEVEL 6-10 Last Admin: 04/14/19 14:11 Dose: 2 mg Ondansetron HCl (Zofran Injection) 4 mg IVPUSH Q6H PRN PRN Reason: NAUSEA AND/OR VOMITING Sodium Chloride (Normal Saline For Inhalation -) 3 ml IH Q6H PRN PRN Reason: COUGH Last Admin: 04/10/19 04:00 Dose: 3 ml - Objective Vital Signs: Vital Signs Temperature 98.4 F 04/15/19 11:10 Pulse Rate 118 H 04/15/19 11:10 Respiratory Rate 25 H 04/15/19 11:10 Blood Pressure 106/65 04/15/19 11:10 O2 Sat by Pulse Oximetry (%) 100 04/15/19 09:00 Constitutional: Yes: Well Nourished, No Distress, Calm Cardiovascular: Yes: Regular Rate and Rhythm Respiratory: Yes: Mechanically Ventilated, Rhonchi (diffuse) Gastrointestinal: Yes: Normal Bowel Sounds, Soft, Distention, Melena Genitourinary: Yes: Huber Present Musculoskeletal: Yes: Other (generalized atrophy) Extremities: Yes: WNL Edema: Yes Edema: LUE: 1+, RUE: 1+ Peripheral Pulses WNL: Yes Neurological: Yes: Alert, Pre-Existing Deficit Labs: CBC, BMP 04/15/19 06:10 04/15/19 06:10 INR, PTT INR 1.36 (0.83-1.09) H 04/15/19 06:10 Assessment/Plan (1) Acute and chronic respiratory failure Assessment/Plan: -Pulm on board -Mechanically Ventilated -keep SpO2 >90% -CXR shows cardiomegaly, left basilar compressive atelectasis, left pleural effusion, right pleural effusion -Sputum Culture positive for MRSA Code(s): J96.20 - ACUTE AND CHR RESP FAILURE, UNSP W HYPOXIA OR HYPERCAPNIA (2) Anemia Assessment/Plan: -Another 3 units of PRBC today -monitor Hg daily and transfuse for Hg <7.0 to avoid fluid overload -GI and Hematology on board Code(s): D64.9 - ANEMIA, UNSPECIFIED (3) Atrial flutter Assessment/Plan: -Metoprolol and Cardizem -Cardiology on board Code(s): I48.92 - UNSPECIFIED ATRIAL FLUTTER (4) COPD (chronic obstructive pulmonary disease) Assessment/Plan: -Pulm on board -Mechanically Ventilated -keep SpO2 >90% -CXR shows cardiomegaly, left basilar compressive atelectasis, left pleural effusion, right pleural effusion Code(s): J44.9 - CHRONIC OBSTRUCTIVE PULMONARY DISEASE, UNSPECIFIED (5) Diabetes mellitus Assessment/Plan: -BGM ACHS -ISS Code(s): E11.9 - TYPE 2 DIABETES MELLITUS WITHOUT COMPLICATIONS (6) GI bleed Assessment/Plan: -GI on board -+melena -Pantoprazole + octreotide drip -GT + bleeding -EGD-unable to identify the source of bleeding -CTA Abd/pelvis Code(s): K92.2 - GASTROINTESTINAL HEMORRHAGE, UNSPECIFIED (7) HTN (hypertension) Assessment/Plan: -Lisinopril Code(s): I10 - ESSENTIAL (PRIMARY) HYPERTENSION (8) SBO (small bowel obstruction) Assessment/Plan: -CTAP shows no evidence of bowel obstruction -GI on board Code(s): K56.609 - UNSP INTESTNL OBST, UNSP TO PARTIAL VERSUS COMPLETE OBST (9) Ascites Assessment/Plan: -s/p paracentesis -Ascites Fluid specimen noted albumin 1.8 with elevated globulins, 2+ proteinuria, macrocytic anemia raise suspicion for hematologic malingnancy -Hematology on board Code(s): R18.8 - OTHER ASCITES (10) Sepsis Assessment/Plan: -ID on board -Leukocytosis -afebrile -Sputum Culture positive for MRSA -BC neg -UC positive ESBL, Klebsiella -Vanco and Zosyn -CXR shows cardiomegaly, left basilar compressive atelectasis, left pleural effusion, right pleural effusion Code(s): A41.9 - SEPSIS, UNSPECIFIED ORGANISM Assessment/Plan see problem list dvt ppx
--- NOTE | 2019-04-15 11:32 | PN ---
Teaching Attending Note Name of Resident: Kenroy Johnson ATTENDING PHYSICIAN STATEMENT I saw and evaluated the patient. I reviewed the resident's note and discussed the case with the resident. I agree with the resident's findings and plan as documented. SUBJECTIVE: Pt seen and examined in the ICU. s/p EGD showing blood but without obvious source of bleeding s/p epinephrine injections. OBJECTIVE: Vital Signs Period Temp Pulse Resp BP Sys/Kang Pulse Ox Last 24 Hr 97.2 F-98.4 F 94-143 14-30 99-125/60-86 100-100 Intake & Output 04/12/19 04/13/19 04/14/19 04/15/19 23:59 23:59 23:59 23:59 Intake Total 0 1310 1936 964 Output Total 700 320 250 450 Balance -208 722 3488 514 Weight 97.25 kg 98.157 kg Gen: vented, awake Heart: tachycardic, regular Lung: decreased breath sounds at the bases Abd: soft, nontender Ext: + edema CBC, BMP 04/15/19 06:10 04/15/19 06:10 Active Medications Diltiazem HCl (Cardizem -) 30 mg NR Q6HPO BASSEM Last Admin: 04/15/19 06:54 Dose: Not Given Piperacillin Sod/Tazobactam (Sod 4.5 gm/ Dextrose) 100 mls @ 200 mls/hr IVPB Q8H-IV BASSEM; Protocol Last Admin: 04/15/19 08:59 Dose: 200 mls/hr Pantoprazole Sodium 80 mg/ (Sodium Chloride) 100 mls @ 10 mls/hr IVPB Q10H BASSEM Last Admin: 04/14/19 20:45 Dose: 10 mls/hr Vancomycin HCl 1,250 mg/ (Dextrose) 250 mls @ 250 mls/2 hr IVPB DAILY BASSEM; Protocol Last Admin: 04/14/19 13:27 Dose: 250 mls/2 hr Dextrose/Lactated Ringer's (D5-Lr -) 1,000 mls @ 42 mls/hr IV ASDIR BASSEM Last Admin: 04/14/19 17:42 Dose: 42 mls/hr Octreotide Acetate 200 mcg/Octreotide Acetate 1,000 mcg/Dextrose 500 mls @ 20.833 mls/hr IVPB ASDIR BASSEM Last Admin: 04/15/19 00:17 Dose: 20.833 mls/hr Insulin Aspart (Novolog Vial Sliding Scale -) 1 vial SQ ACHS [facility]; Protocol Last Admin: 04/15/19 06:55 Dose: Not Given Lisinopril (Prinivil) 5 mg PEG DAILY [facility] Last Admin: 04/14/19 10:38 Dose: Not Given Metoprolol Tartrate (Lopressor -) 50 mg PEG Q6HPO [facility] Last Admin: 04/15/19 06:55 Dose: Not Given Metoprolol Tartrate (Lopressor Injection -) 5 mg IVPUSH Q4H PRN PRN Reason: HYPERTENSION Last Admin: 04/15/19 08:23 Dose: 5 mg Metoprolol Tartrate (Lopressor Injection -) 10 mg IVPUSH Q4H PRN PRN Reason: TACHYCARDIA Last Admin: 04/15/19 04:49 Dose: 10 mg Morphine Sulfate (Morphine Sulfate) 2 mg IVPUSH Q4H PRN PRN Reason: PAIN LEVEL 6-10 Last Admin: 04/14/19 14:11 Dose: 2 mg Ondansetron HCl (Zofran Injection) 4 mg IVPUSH Q6H PRN PRN Reason: NAUSEA AND/OR VOMITING Sodium Chloride (Normal Saline For Inhalation -) 3 ml IH Q6H PRN PRN Reason: COUGH Last Admin: 04/10/19 04:00 Dose: 3 ml ASSESSMENT AND PLAN: Atrial Flutter with RVR GI Bleed Acute Blood Loss Anemia Chronic Respiratory Failure UTI/Pneumonia/Sepsis Lactic Acidosis CAD s/p CABG COPD HTN Hyperlipidemia Ascites - continue antibiotics - protonix, octreotide gtts - monitor H/H - transfuse as needed - rate control - holding anticoagulation - CTA A/P - NPO - DVT/GI prophylaxis - continue ICU monitoring
--- NOTE | 2019-04-15 11:34 | PN ---
Progress Note (short form) - Note Progress Note: EGD complete. Report to beplaced in physical chart and will be scanned into [employer]. Findings discussed with family, ICU resident and Dr. Zhang. Problem List - Problems (1) Abigail Code(s): K92.1 Alis SOL
[2019-04-15] MEDS: LISINOPRIL 5 MG TABLET (FP) PEG SCH (11:58)
[2019-04-15] MEDS: PANTOPRAZOLE SODIUM 80 MG in SODIUM CHLORIDE 100 ML IVPB SCH ×3 (11:58→23:23)
[2019-04-15] MEDS: VANCOMYCIN HCL 1,250 MG in DEXTROSE 5%-WATER - 250 ML IVPB SCH (12:00)
[2019-04-15 13:24] LABS: HEMATOCRIT 30.8 % (35.4-49); HEMOGLOBIN 10.2 GM/dL (11.7-16.9); MCH 29.4 pg (25.7-33.7); MCHC 32.9 g/dl (32.0-35.9); MEAN CELL VOLUME 89.3 fl (80-96); MEAN PLT VOLUME 8.5 fl (7.5-11.1); PLATELET COUNT 171 K/MM3 (134-434); RBC 3.45 M/mm3 (4.00-5.60); RDW 17.9 % (11.9-15.9); WHITE BLOOD COUNT 19.5 K/mm3 (4.0-10.0)
--- NOTE | 2019-04-15 13:43 | PN ---
Progress Note (short form) - Note Progress Note: s/p egd today apparently with continued bleeding CTA scheduled for later today Vital Signs Period Temp Pulse Resp BP Sys/Kang Pulse Ox Last 24 Hr 97.2 F-98.4 F 102-143 14-30 99-125/60-91 100-100 trach to vent awake cor-rrr lungs decreased bs at bases abd soft, distended, +GT ext multiple ecchymoses bilateral PCN CBC, BMP 04/15/19 13:10 04/15/19 06:10 ct scan bilateral effusions, lower lobe consolidations, ascites, no hydronephrosis Microbiology 04/13/19 13:50 Stool Clostridioides difficile Antigen - Final 04/13/19 13:50 Stool Clostridioides difficile Toxin Assay - Final 04/06/19 19:30 Blood - Peripheral Venous Blood Culture - Final NO GROWTH AFTER 5 DAYS INCUBATION 04/06/19 19:30 Blood - Peripheral Venous Blood Culture - Final NO GROWTH AFTER 5 DAYS INCUBATION 04/08/19 07:50 Sputum - Endotrachea Suction/Ventilator Gram Stain - Final 04/08/19 07:50 Sputum - Endotrachea Suction/Ventilator Sputum Culture - Final Pseudomonas Aeruginosa Mr S Aureus 04/02/19 14:54 Peritoneal Fluid Gram Stain - Final 04/02/19 14:54 Peritoneal Fluid Body Fluid Culture - Final NO GROWTH OF AEROBIC ORGANISMS AFTER 48 HOURS INCUBATION 04/02/19 14:54 Peritoneal Fluid Anaerobic Culture - Final NO ANAEROBES WERE ISOLATED 04/02/19 14:54 Peritoneal Fluid AFB Smear Concentration - Preliminary 04/02/19 14:54 Peritoneal Fluid Mycobacterial Culture - Preliminary 03/31/19 01:27 Blood - Peripheral Venous Blood Culture - Final NO GROWTH AFTER 5 DAYS INCUBATION 03/31/19 01:27 Blood - Peripheral Venous Blood Culture - Final NO GROWTH AFTER 5 DAYS INCUBATION 04/02/19 14:54 Peritoneal Fluid ROB Preparation - Preliminary 04/02/19 14:54 Peritoneal Fluid Fungal Culture - Preliminary 03/31/19 02:17 Urine - Urine Nephrostomy Tube Left Urine Culture - Final Klebsiella Pneumoniae - Esbl a/p GI bleed- per GI ?aspiration pneumonia ?aspiration, colonized with resistant klebsiella (CRE) in urine has completed 7 days of gentamicin - now off continue zosyn/vancomycin contact isolation for CRE overall prognosis is poor d/w son at bedside
--- NOTE | 2019-04-15 15:22 | PN ---
Physical Exam: SUBJECTIVE: Patient seen and examined had EGD today and CTA cont to bleed family at bed side OBJECTIVE: Vital Signs Period Temp Pulse Resp BP Sys/Kang Pulse Ox Last 24 Hr 97.2 F-98.4 F 102-143 14-30 100-125/65-91 100-100 GENERAL: awake, alert.follow commands HEAD:NC/AT NECK: Tracheostomy in plac. LUNGS:decrease breath sound at the bases HEART: Tachycardic, s1 s2 present, no murmurs. ABDOMEN: Soft, diffuse tenderness , mild distended , normoactive bowel sounds, gastrostomy tube in place clean and dry . Nephrostomy tubes in place with no erythema. EXTREMITIES: 2+ pulses, warm, well-perfused, no edema. SKIN: 4x 6cm saccral ulcer, clean base, no erythema diffuse pupura all over Laboratory Results - last 24 hr 04/13/19 04/14/19 04/14/19 12:00 15:45 16:53 WBC RBC Hgb Hct MCV MCH MCHC RDW Plt Count MPV Absolute Neuts (auto) Total Counted Neutrophils % Neutrophils % (Manual) Band Neutrophils % Lymphocytes % Lymphocytes % (Manual) Monocytes % Monocytes % (Manual) Eosinophils % Eosinophils % (Manual) Basophils % Basophils % (Manual) Myelocytes % (Man) Promyelocytes % (Man) Blast Cells % (Manual) Nucleated RBC % Metamyelocytes Hypochromia Platelet Estimate Platelet Comment Polychromasia Poikilocytosis Anisocytosis Microcytosis Macrocytosis Schistocytes PT with INR 17.40 H INR 1.47 H Sodium Potassium Chloride Carbon Dioxide Anion Gap BUN Creatinine Est GFR (CKD-EPI)AfAm Est GFR (CKD-EPI)NonAf POC Glucometer 71 Random Glucose Calcium Phosphorus Magnesium Total Bilirubin AST ALT Alkaline Phosphatase Total Protein Albumin Blood Type O NEGATIVE Antibody Screen Negative Crossmatch See Detail 04/14/19 04/14/19 04/14/19 19:45 19:45 22:18 WBC 15.4 H RBC 2.43 L Hgb 7.2 L Hct 22.5 L D MCV 92.4 MCH 29.8 MCHC 32.2 RDW 20.4 H Plt Count 176 MPV 8.4 Absolute Neuts (auto) 13.6 H Total Counted 100 Neutrophils % 88.6 H Neutrophils % (Manual) 85.0 H Band Neutrophils % 1.0 Lymphocytes % 5.2 L D Lymphocytes % (Manual) 5.0 L D Monocytes % 4.5 Monocytes % (Manual) 6 D Eosinophils % 1.4 Eosinophils % (Manual) Basophils % 0.3 Basophils % (Manual) Myelocytes % (Man) Promyelocytes % (Man) Blast Cells % (Manual) Nucleated RBC % 0 Metamyelocytes 3 H D Hypochromia 1+ Platelet Estimate Adequate Platelet Comment No clumping noted Polychromasia 1+ Poikilocytosis Anisocytosis 1+ Microcytosis 1+ Macrocytosis Schistocytes PT with INR 17.10 H INR 1.44 H Sodium Potassium Chloride Carbon Dioxide Anion Gap BUN Creatinine Est GFR (CKD-EPI)AfAm Est GFR (CKD-EPI)NonAf POC Glucometer 76 Random Glucose Calcium Phosphorus Magnesium Total Bilirubin AST ALT Alkaline Phosphatase Total Protein Albumin Blood Type Antibody Screen Crossmatch 04/15/19 04/15/19 04/15/19 06:10 06:10 06:10 WBC 14.7 H RBC 2.98 L Hgb 8.9 L Hct 26.7 L D MCV 89.6 MCH 30.0 MCHC 33.5 RDW 18.6 H Plt Count 160 MPV 8.7 Absolute Neuts (auto) 13.2 H Total Counted Neutrophils % 89.3 H Neutrophils % (Manual) 80.0 Band Neutrophils % 8.0 Lymphocytes % 4.5 L Lymphocytes % (Manual) 5.0 L Monocytes % 4.1 Monocytes % (Manual) 4 Eosinophils % 1.9 Eosinophils % (Manual) 1.0 Basophils % 0.2 Basophils % (Manual) 0.0 Myelocytes % (Man) 1 Promyelocytes % (Man) 0 D Blast Cells % (Manual) 0 Nucleated RBC % 0 Metamyelocytes 1 D Hypochromia 1+ Platelet Estimate Normal Platelet Comment Polychromasia 1+ Poikilocytosis 1+ Anisocytosis 1+ Microcytosis 1+ Macrocytosis 0 Schistocytes 1+ PT with INR 16.10 H INR 1.36 H Sodium 147 H Potassium 3.7 Chloride 118 H Carbon Dioxide 22 Anion Gap 6 L BUN 38.2 H Creatinine 1.2 Est GFR (CKD-EPI)AfAm 64.88 Est GFR (CKD-EPI)NonAf 55.98 POC Glucometer Random Glucose 88 Calcium 7.2 L Phosphorus 2.8 Magnesium 1.9 Total Bilirubin 1.8 H AST 24 ALT 15 Alkaline Phosphatase 131 H Total Protein 5.6 L Albumin 1.3 L Blood Type Antibody Screen Crossmatch 04/15/19 04/15/19 04/15/19 06:48 12:44 13:10 WBC 19.5 H RBC 3.45 L Hgb 10.2 L Hct 30.8 L D MCV 89.3 MCH 29.4 MCHC 32.9 RDW 17.9 H Plt Count 171 MPV 8.5 Absolute Neuts (auto) Total Counted Neutrophils % Neutrophils % (Manual) Band Neutrophils % Lymphocytes % Lymphocytes % (Manual) Monocytes % Monocytes % (Manual) Eosinophils % Eosinophils % (Manual) Basophils % Basophils % (Manual) Myelocytes % (Man) Promyelocytes % (Man) Blast Cells % (Manual) Nucleated RBC % Metamyelocytes Hypochromia Platelet Estimate Platelet Comment Polychromasia Poikilocytosis Anisocytosis Microcytosis Macrocytosis Schistocytes PT with INR INR Sodium Potassium Chloride Carbon Dioxide Anion Gap BUN Creatinine Est GFR (CKD-EPI)AfAm Est GFR (CKD-EPI)NonAf POC Glucometer 94 180 Random Glucose Calcium Phosphorus Magnesium Total Bilirubin AST ALT Alkaline Phosphatase Total Protein Albumin Blood Type Antibody Screen Crossmatch Active Medications Generic Name Dose Route Start Last Admin Trade Name Freq PRN Reason Stop Dose Admin Diltiazem HCl 30 mg 04/13/19 04:31 04/15/19 12:01 Cardizem - NR Not Given Q6HPO [facility] Piperacillin Sod/Tazobactam 100 mls @ 200 mls/hr 04/08/19 18:00 04/15/19 08: 59 Sod 4.5 gm/ Dextrose IVPB 200 mls/hr Q8H-IV [facility] Administration Protocol Pantoprazole Sodium 80 mg/ 100 mls @ 10 mls/hr 04/13/19 12:45 04/15/19 11:58 Sodium Chloride IVPB 10 mls/hr Q10H [facility] Administration 8 MG/HR Vancomycin HCl 1,250 mg/ 250 mls @ 250 mls/2 hr 04/14/19 11:00 04/15/19 12:00 Dextrose IVPB 250 mls/2 hr DAILY [facility] Administration Protocol Dextrose/Lactated Ringer's 1,000 mls @ 42 mls/hr 04/14/19 17:15 04/14/19 17: 42 D5-Lr - IV 42 mls/hr ASDIR [facility] Administration Octreotide Acetate 200 mcg/ 500 mls @ 20.833 mls/hr 04/15/19 00:15 04/15/19 00:17 Octreotide Acetate 1,000 mcg/ IVPB 20.833 mls/hr Dextrose ASDIR [facility] Administration Insulin Aspart 1 vial 04/09/19 11:00 04/15/19 12:48 Novolog Vial Sliding Scale - SQ Not Given ACHS [facility] Protocol Lisinopril 5 mg 04/02/19 10:00 04/15/19 11:58 Prinivil PEG Not Given DAILY [facility] Metoprolol Tartrate 50 mg 04/02/19 01:00 04/15/19 12:01 Lopressor - PEG Not Given Q6HPO [facility] Metoprolol Tartrate 5 mg 04/14/19 13:38 04/15/19 12:39 Lopressor Injection - IVPUSH 5 mg Q4H PRN Administration HYPERTENSION Metoprolol Tartrate 10 mg 04/14/19 13:38 04/15/19 04:49 Lopressor Injection - IVPUSH 10 mg Q4H PRN Administration TACHYCARDIA Morphine Sulfate 2 mg 04/14/19 14:03 04/14/19 14:11 Morphine Sulfate IVPUSH 2 mg Q4H PRN Administration PAIN LEVEL 6-10 Ondansetron HCl 4 mg 04/06/19 02:10 Zofran Injection IVPUSH Q6H PRN NAUSEA AND/OR VOMITING Sodium Chloride 3 ml 04/02/19 02:23 04/10/19 04:00 Normal Saline For Inhalation - IH 3 ml Q6H PRN Administration COUGH CBC, BMP 04/15/19 13:10 04/15/19 06:10 Microbiology 04/13/19 13:50 Stool Clostridioides difficile Antigen - Final 04/13/19 13:50 Stool Clostridioides difficile Toxin Assay - Final 04/06/19 19:30 Blood - Peripheral Venous Blood Culture - Final NO GROWTH AFTER 5 DAYS INCUBATION 04/06/19 19:30 Blood - Peripheral Venous Blood Culture - Final NO GROWTH AFTER 5 DAYS INCUBATION 04/08/19 07:50 Sputum - Endotrachea Suction/Ventilator Gram Stain - Final 04/08/19 07:50 Sputum - Endotrachea Suction/Ventilator Sputum Culture - Final Pseudomonas Aeruginosa Mr S Aureus 04/02/19 14:54 Peritoneal Fluid Gram Stain - Final 04/02/19 14:54 Peritoneal Fluid Body Fluid Culture - Final NO GROWTH OF AEROBIC ORGANISMS AFTER 48 HOURS INCUBATION 04/02/19 14:54 Peritoneal Fluid Anaerobic Culture - Final NO ANAEROBES WERE ISOLATED 04/02/19 14:54 Peritoneal Fluid AFB Smear Concentration - Preliminary 04/02/19 14:54 Peritoneal Fluid Mycobacterial Culture - Preliminary 03/31/19 01:27 Blood - Peripheral Venous Blood Culture - Final NO GROWTH AFTER 5 DAYS INCUBATION 03/31/19 01:27 Blood - Peripheral Venous Blood Culture - Final NO GROWTH AFTER 5 DAYS INCUBATION 04/02/19 14:54 Peritoneal Fluid ROB Preparation - Preliminary 04/02/19 14:54 Peritoneal Fluid Fungal Culture - Preliminary 03/31/19 02:17 Urine - Urine Nephrostomy Tube Left Urine Culture - Final Klebsiella Pneumoniae - Esbl ASSESSMENT/PLAN: we were consulted to R/O DIC #Atrial Flutter with RVR #GI Bleed #Acute Blood Loss Anemia #Chronic Respiratory Failure #UTI/Pneumonia/Sepsis #Lactic Acidosis #CAD s/p CABG #COPD #HTN #Hyperlipidemia #Ascites # hypernatremia # leucocytosis * continue antibiotics * protonix gtt, octeriotide gtt , monitor H/H, transfuse as needed maintain HgB > 9 * holding anticoagulation * GI f/u, NPO * DVT/GI prophylaxis * PT, PTT, fibrinogen , fibrin degradation products , peripheral smear , left , cmp * CTA abdomen with no active bleeding * follow EGD reports Visit type - Emergency Visit Emergency Visit: Yes ED Registration Date: 03/31/19 Care time: The patient presented to the Emergency Department on the above date and was hospitalized for further evaluation of their emergent condition. - New Patient This patient is new to me today: No - Critical Care Critical Care patient: Yes Total Critical Care Time (in minutes): 45 Critical Care Statement: The care of this patient involved high complexity decision making to prevent further life threatening deterioration of the patient 's condition and/or to evaluate & treat vital organ system(s) failure or risk of failure. - Discharge Referral Referred to [facility] No ATTENDING PHYSICIAN STATEMENT I saw and evaluated the patient. I reviewed the resident's note and discussed the case with the resident. I agree with the resident's findings and plan as documented. SUBJECTIVE: OBJECTIVE: ASSESSMENT AND PLAN:
[2019-04-15] MEDS: DEXTROSE 5%-LACTATED RINGERS 1,000 ML IV SCH (17:57)
--- NOTE | 2019-04-15 19:07 | PN ---
Progress Note (short form) - Note Progress Note: Consult Specialty:: Hematology Reason for Consultation:: R/O Hematologic Malignancy - History of Present Illness 83 year old gentleman with a pmhx of prostate CA s/p radiation, CAD s/p CABG 2018, dm, htn, esrd, copd, and s/p Trach/vent/peg sent from long-term for coffee ground emesis. Patient unable to provide medical history. Hematology was consulted for possible hematologic malignancies Visit 04/15: + Trach, + PEG. Denies pain with his head when asked - History Source History Provided By: Medical Record Limitations to Obtaining History: Clinical Condition - Past Medical History Cardio/Vascular: Yes: Aneurysm, CAD, HTN, Hyperlipdemia Pulmonary: Yes: COPD, Pneumonia, Other (trach/vent dependent) Renal/: Yes: Renal Failure Endocrine: Yes: Diabetes Mellitus - Past Surgical History Past Surgical History: Yes: AAA Repair, CABG - Alcohol/Substance Use Hx Alcohol Use: No History of Substance Use: reports: None - Smoking History Smoking history: Unknown if ever smoked Have you smoked in the past 12 months: No - Social History ADL: Support Services History of Recent Travel: No Home Medications - Allergies Allergies/Adverse Reactions: Allergies Allergy/AdvReac Type Severity Reaction Status Date / Time chlorhexidine Allergy Verified 03/30/19 21:38 Current Medications Diltiazem HCl (Cardizem -) 30 mg NR Q6HPO [facility] Last Admin: 04/04/19 12:32 Dose: 30 mg Lisinopril (Prinivil) 5 mg PEG DAILY [facility] Last Admin: 04/04/19 10:45 Dose: 5 mg Metoprolol Tartrate (Lopressor -) 50 mg PEG Q6HPO [facility] Last Admin: 04/04/19 12:32 Dose: 50 mg Sodium Chloride (Normal Saline For Inhalation -) 3 ml IH Q6H PRN PRN Reason: COUGH Physical Exam Last Vital Signs Temp Pulse Resp BP Pulse Ox 97.5 F L 136 H 18 113/74 100 04/15/19 18:00 04/15/19 19:01 04/15/19 18:00 04/15/19 19:01 04/15/19 09:00 Constitutional: Yes: No Distress Eyes: Yes: WNL, Conjunctiva Clear HENT: Yes: WNL Neck: Yes: WNL Cardiovascular: Yes: WNL Respiratory: Yes: WNL Gastrointestinal: Yes: Normal Bowel Sounds Integumentary: Yes: WNL, Bruising Neurological: Yes: Alert Labs: 04/15/19 13:10 04/15/19 06:10 Current Medications Diltiazem HCl (Cardizem -) 30 mg NR Q6HPO [facility] Last Admin: 04/15/19 19:01 Dose: Not Given Piperacillin Sod/Tazobactam (Sod 4.5 gm/ Dextrose) 100 mls @ 200 mls/hr IVPB Q8H-IV [facility]; Protocol Last Admin: 04/15/19 17:27 Dose: 200 mls/hr Pantoprazole Sodium 80 mg/ (Sodium Chloride) 100 mls @ 10 mls/hr IVPB Q10H [facility] Last Admin: 04/15/19 15:51 Dose: 10 mls/hr Vancomycin HCl 1,250 mg/ (Dextrose) 250 mls @ 250 mls/2 hr IVPB DAILY [facility]; Protocol Last Admin: 04/15/19 12:00 Dose: 250 mls/2 hr Dextrose/Lactated Ringer's (D5-Lr -) 1,000 mls @ 42 mls/hr IV ASDIR [facility] Last Admin: 04/15/19 17:57 Dose: 42 mls/hr Octreotide Acetate 200 mcg/Octreotide Acetate 1,000 mcg/Dextrose 500 mls @ 20.833 mls/hr IVPB ASDIR [facility] Last Admin: 04/15/19 00:17 Dose: 20.833 mls/hr Insulin Aspart (Novolog Vial Sliding Scale -) 1 vial SQ ACHS [facility]; Protocol Last Admin: 04/15/19 17:02 Dose: Not Given Lisinopril (Prinivil) 5 mg PEG DAILY [facility] Last Admin: 04/15/19 11:58 Dose: Not Given Metoprolol Tartrate (Lopressor -) 50 mg PEG Q6HPO [facility] Last Admin: 04/15/19 17:02 Dose: Not Given Metoprolol Tartrate (Lopressor Injection -) 5 mg IVPUSH Q4H PRN PRN Reason: HYPERTENSION Last Admin: 04/15/19 19:01 Dose: 5 mg Metoprolol Tartrate (Lopressor Injection -) 10 mg IVPUSH Q4H PRN PRN Reason: TACHYCARDIA Last Admin: 04/15/19 04:49 Dose: 10 mg Morphine Sulfate (Morphine Sulfate) 2 mg IVPUSH Q4H PRN PRN Reason: PAIN LEVEL 6-10 Last Admin: 04/14/19 14:11 Dose: 2 mg Ondansetron HCl (Zofran Injection) 4 mg IVPUSH Q6H PRN PRN Reason: NAUSEA AND/OR VOMITING Sodium Chloride (Normal Saline For Inhalation -) 3 ml IH Q6H PRN PRN Reason: COUGH Last Admin: 04/10/19 04:00 Dose: 3 ml Assessment/Plan 83 y/o gentleman with a pmhx of prostate CA s/p radiation, CAD s/p CABG 05/2018, dm, htn, esrd, copd, and s/p Trach/vent/peg sent from long-term for coffee ground emesis. Patient unable to provide history. Team suspicious for DIC Recommend: 1) PT/INR, PTT, D-Dimer, FDP and Fibrinogen. Consider peripheral blood smear 2) Protnix drip. Octreotide drip. H/H monitor. Hb above 9 3) GI F/U 4) CT Abdomen negative
[2019-04-16] MEDS: METOPROLOL TARTRATE 50 MG TABLET (FP) PEG SCH ×4 (00:07→17:27)
[2019-04-16] MEDS: dilTIAZem HCL 30 MG TABLET (FP) NR SCH ×4 (00:07→17:27)
[2019-04-16] MEDS ORDERED: DEXTROSE 5%-WATER 100 ML IVPB ONE ×3 (02:06→18:25)
[2019-04-16] MEDS ORDERED: PIPERACILLIN/TAZOBACTAM 4.5 GM VIAL IVPB ONE ×3 (02:06→18:25)
[2019-04-16] MEDS: PIPERACILLIN/TAZOB 4.5 GM 4.5 GM in DEXTROSE 5%-WATER 100 ML IVPB SCH ×3 (02:30→18:32)
[2019-04-16] MEDS: METOPROLOL TARTRATE 5 MG/5 ML VIAL IVPUSH PRN ×4 (05:43→21:51)
[2019-04-16] MEDS: DEXTROSE 5%-LACTATED RINGERS 1,000 ML IV SCH ×2 (05:45→14:00)
[2019-04-16 06:32] LABS: BASO % 0.4 % (0-2.0); EOS % 1.2 % (0-4.5); HEMATOCRIT 26.2 % (35.4-49); HEMOGLOBIN 8.7 GM/dL (11.7-16.9); LYMPH % 4.2 % (8-40); MCH 29.7 pg (25.7-33.7); MCHC 33.2 g/dl (32.0-35.9); MEAN CELL VOLUME 89.6 fl (80-96); MEAN PLT VOLUME 8.8 fl (7.5-11.1); MONO % 4.5 % (3.8-10.2); NEUT % 89.7 % (42.8-82.8); PLATELET COUNT 167 K/MM3 (134-434); RBC 2.92 M/mm3 (4.00-5.60); RDW 18.7 % (11.9-15.9); WHITE BLOOD COUNT 15.9 K/mm3 (4.0-10.0)
[2019-04-16 06:43] LABS: INR 1.27 (0.83-1.09)
[2019-04-16 06:46] LABS: ACTIVATED PTT 34.4 SECONDS (25.2-36.5)
[2019-04-16 07:06] LABS: ALBUMIN 1.4 g/dl (3.4-5.0); BILIRUBIN,TOTAL 1.2 mg/dL (0.2-1); BLOOD UREA NITROGEN 40.1 mg/dL (7-18); CALCIUM 7.4 mg/dL (8.5-10.1); CREATININE 1.4 mg/dL (0.55-1.3); MAGNESIUM 1.8 mg/dL (1.8-2.4); PHOSPHOROUS 3.4 mg/dL (2.5-4.9); POTASSIUM 3.7 mmol/L (3.5-5.1); TOT PROT 5.8 g/dl (6.4-8.2)
[2019-04-16] MEDS: INSULIN SLIDING SCALE (NOVOLOG) 1 VIAL SQ SCH ×4 (07:09→22:05)
[2019-04-16] MEDS ORDERED: INSULIN (NOVOLOG) ASPART 100 UNITS/ML 10ML VIAL ONE ×2 (07:43→13:34)
[2019-04-16] MEDS ORDERED: dilTIAZem HCL 50 MG/10 ML - 10 ML VIAL IVPUSH ONE (07:52)
[2019-04-16] MEDS: PANTOPRAZOLE SODIUM 80 MG in SODIUM CHLORIDE 100 ML IVPB SCH ×4 (08:09→21:51)
[2019-04-16] MEDS: MORPHINE SULFATE 2 MG/ML VIAL IVPUSH PRN (08:15)
--- NOTE | 2019-04-16 09:43 | PN.GI ---
GI Progress Note Subjective: Blood mixed BM this morning Received 2 U PRBC yesterday, 1 during EGD - Objective Vital Signs: Vital Signs Temperature 97.7 F 04/16/19 05:11 Pulse Rate 102 H 04/16/19 06:34 Respiratory Rate 20 04/16/19 08:15 Blood Pressure 132/101 H 04/16/19 06:34 O2 Sat by Pulse Oximetry (%) 100 04/15/19 09:00 Constitutional: Calm Cardiovascular: Yes: Pulse Irregular Respiratory: Yes: Diminished (at bases bilaterally) Gastrointestinal Inspection: Yes: Distention ...Auscultate: Yes: Normoactive Bowel Sounds ...Percussion: No: Tympanitic ...Rectal Exam: Yes: Other (blood tinged BM) Labs: CBC, BMP 04/16/19 05:30 04/16/19 05:30 INR, PTT INR 1.27 (0.83-1.09) H 04/16/19 05:30 Fibrinogen 295.0 mg/dL (238-498) 04/16/19 05:30 Problem List - Problems (1) Melena Assessment/Plan: Discussed clinical course with his daughter Beulah this morning via telephone. Discussed 2nd look upper endoscopy in setting of suspected continued bleeding. She was amenable to this, however, wanted to discuss things with her sibling For now: NPO Monitor vitals Keep Hbg >8 PPI drip Patient needs IV access. Central line was dislodged yesterday Code(s): K92.1 - MELENA
--- NOTE | 2019-04-16 09:44 | PN ---
Progress Note, Physician - Current Medication List Current Medications: Active Medications Diltiazem HCl (Cardizem -) 30 mg NR Q6HPO [facility] Last Admin: 04/16/19 05:40 Dose: Not Given Piperacillin Sod/Tazobactam (Sod 4.5 gm/ Dextrose) 100 mls @ 200 mls/hr IVPB Q8H-IV [facility]; Protocol Last Admin: 04/16/19 02:30 Dose: 200 mls/hr Pantoprazole Sodium 80 mg/ (Sodium Chloride) 100 mls @ 10 mls/hr IVPB Q10H [facility] Last Admin: 04/16/19 08:09 Dose: 10 mls/hr Vancomycin HCl 1,250 mg/ (Dextrose) 250 mls @ 250 mls/2 hr IVPB DAILY [facility]; Protocol Last Admin: 04/15/19 12:00 Dose: 250 mls/2 hr Dextrose/Lactated Ringer's (D5-Lr -) 1,000 mls @ 42 mls/hr IV ASDIR [facility] Last Admin: 04/16/19 05:45 Dose: 42 mls/hr Octreotide Acetate 200 mcg/Octreotide Acetate 1,000 mcg/Dextrose 500 mls @ 20.833 mls/hr IVPB ASDIR [facility] Last Admin: 04/15/19 23:22 Dose: 20.833 mls/hr Insulin Aspart (Novolog Vial Sliding Scale -) 1 vial SQ ACHS [facility]; Protocol Last Admin: 04/16/19 07:09 Dose: Not Given Lisinopril (Prinivil) 5 mg PEG DAILY [facility] Last Admin: 04/15/19 11:58 Dose: Not Given Metoprolol Tartrate (Lopressor -) 50 mg PEG Q6HPO [facility] Last Admin: 04/16/19 05:40 Dose: Not Given Metoprolol Tartrate (Lopressor Injection -) 5 mg IVPUSH Q4H PRN PRN Reason: HYPERTENSION Last Admin: 04/16/19 05:43 Dose: 5 mg Metoprolol Tartrate (Lopressor Injection -) 10 mg IVPUSH Q4H PRN PRN Reason: TACHYCARDIA Last Admin: 04/15/19 23:01 Dose: 10 mg Morphine Sulfate (Morphine Sulfate) 2 mg IVPUSH Q4H PRN PRN Reason: PAIN LEVEL 6-10 Last Admin: 04/16/19 08:15 Dose: 2 mg Ondansetron HCl (Zofran Injection) 4 mg IVPUSH Q6H PRN PRN Reason: NAUSEA AND/OR VOMITING Sodium Chloride (Normal Saline For Inhalation -) 3 ml IH Q6H PRN PRN Reason: COUGH Last Admin: 04/10/19 04:00 Dose: 3 ml - Objective Vital Signs: Vital Signs Temperature 97.7 F 04/16/19 05:11 Pulse Rate 102 H 04/16/19 06:34 Respiratory Rate 20 04/16/19 08:15 Blood Pressure 132/101 H 04/16/19 06:34 O2 Sat by Pulse Oximetry (%) 100 04/15/19 09:00 Cardiovascular: Yes: S1 Respiratory: Yes: Rhonchi, Other (trach) Gastrointestinal: Yes: Normal Bowel Sounds, Soft, Distention, Melena Neurological: Yes: Alert Labs: CBC, BMP 04/16/19 05:30 04/16/19 05:30 INR, PTT INR 1.27 (0.83-1.09) H 04/16/19 05:30 Fibrinogen 295.0 mg/dL (238-498) 04/16/19 05:30 Problem List - Problems (1) Ascites Code(s): R18.8 - OTHER ASCITES (2) Anemia Code(s): D64.9 - ANEMIA, UNSPECIFIED (3) Sepsis Code(s): A41.9 - SEPSIS, UNSPECIFIED ORGANISM (4) Acute and chronic respiratory failure Code(s): J96.20 - ACUTE AND CHR RESP FAILURE, UNSP W HYPOXIA OR HYPERCAPNIA (5) COPD (chronic obstructive pulmonary disease) Code(s): J44.9 - CHRONIC OBSTRUCTIVE PULMONARY DISEASE, UNSPECIFIED (6) Diabetes mellitus Code(s): E11.9 - TYPE 2 DIABETES MELLITUS WITHOUT COMPLICATIONS (7) HTN (hypertension) Code(s): I10 - ESSENTIAL (PRIMARY) HYPERTENSION (8) Atrial flutter Code(s): I48.92 - UNSPECIFIED ATRIAL FLUTTER (9) SBO (small bowel obstruction) Code(s): K56.609 - UNSP INTESTNL OBST, UNSP TO PARTIAL VERSUS COMPLETE OBST Assessment/Plan (1) Acute and chronic respiratory failure Assessment/Plan: -Pulm on board -Mechanically Ventilated -keep SpO2 >90% -CXR shows cardiomegaly, left basilar compressive atelectasis, left pleural effusion, right pleural effusion -Sputum Culture positive for MRSA Code(s): J96.20 - ACUTE AND CHR RESP FAILURE, UNSP W HYPOXIA OR HYPERCAPNIA (2) Anemia Assessment/Plan: -Another 2 units of PRBC today -monitor Hg daily and transfuse for Hg <7.0 to avoid fluid overload -GI and Hematology on board -noted -on ppi drip -on octreotide drip Code(s): D64.9 - ANEMIA, UNSPECIFIED (3) Atrial flutter Assessment/Plan: -Metoprolol and Cardizem -Cardiology on board -no AC due to bleeding Code(s): I48.92 - UNSPECIFIED ATRIAL FLUTTER (4) COPD (chronic obstructive pulmonary disease) Assessment/Plan: -Pulm on board -Mechanically Ventilated -keep SpO2 >90% -CXR shows cardiomegaly, left basilar compressive atelectasis, left pleural effusion, right pleural effusion Code(s): J44.9 - CHRONIC OBSTRUCTIVE PULMONARY DISEASE, UNSPECIFIED (5) Diabetes mellitus Assessment/Plan: -BGM ACHS -ISS Code(s): E11.9 - TYPE 2 DIABETES MELLITUS WITHOUT COMPLICATIONS (6) GI bleed Assessment/Plan: -GI on board -+melena -Pantoprazole + octreotide drip -GT + bleeding -EGD-unable to identify the source of bleeding -CTA Abd/pelvis Code(s): K92.2 - GASTROINTESTINAL HEMORRHAGE, UNSPECIFIED (7) HTN (hypertension) Assessment/Plan: -Lisinopril Code(s): I10 - ESSENTIAL (PRIMARY) HYPERTENSION (8) SBO (small bowel obstruction) Assessment/Plan: -CTAP shows no evidence of bowel obstruction -GI on board Code(s): K56.609 - UNSP INTESTNL OBST, UNSP TO PARTIAL VERSUS COMPLETE OBST (9) Ascites Assessment/Plan: -s/p paracentesis -Ascites Fluid specimen noted albumin 1.8 with elevated globulins, 2+ proteinuria, macrocytic anemia raise suspicion for hematologic malingnancy -Hematology on board Code(s): R18.8 - OTHER ASCITES (10) Sepsis Assessment/Plan: -ID on board -Leukocytosis -afebrile -Sputum Culture positive for MRSA -BC neg -UC positive ESBL, Klebsiella -Vanco and Zosyn -CXR shows cardiomegaly, left basilar compressive atelectasis, left pleural effusion, right pleural effusion Code(s): A41.9 - SEPSIS, UNSPECIFIED ORGANISM
[2019-04-16 10:24] LABS: ANISOCYTOSIS 1+; MACROCYTOSIS 0; PLATELET ESTIMATE NORMAL
[2019-04-16] MEDS: LISINOPRIL 5 MG TABLET (FP) PEG SCH (10:29)
[2019-04-16] MEDS ORDERED: MIDAZOLAM HCL 2 MG/2 ML SINGLE DOSE VIAL IVPUSH ONE ×2 (10:59→13:00)
[2019-04-16] MEDS ORDERED: PT OWN MED DRAWER 7, Y5N ONE (11:15)
--- NOTE | 2019-04-16 11:15 | PN ---
Teaching Attending Note Name of Resident: Cordelia Holman ATTENDING PHYSICIAN STATEMENT I saw and evaluated the patient. I reviewed the resident's note and discussed the case with the resident. I agree with the resident's findings and plan as documented. SUBJECTIVE: Patient seen and examined in the ICU. Awake and responsive. AC Mode of vent. Bloody BM overnight and 2 units of pRBCs were ordered. OBJECTIVE: Intake & Output 04/13/19 04/14/19 04/15/19 04/16/19 23:59 23:59 23:59 23:59 Intake Total 1310 1936 2174 504 Output Total 320 250 550 100 Balance 990 1686 1624 404 Weight 214 lb 6.4 oz 216 lb 6.4 oz 218 lb Last Vital Signs Temp Pulse Resp BP Pulse Ox 97.4 F L 96 H 26 H 106/93 100 04/16/19 09:30 04/16/19 09:30 04/16/19 10:00 04/16/19 09:30 04/16/19 10:00 Active Medications Diltiazem HCl (Cardizem -) 30 mg NR Q6HPO BASSEM Last Admin: 04/16/19 05:40 Dose: Not Given Piperacillin Sod/Tazobactam (Sod 4.5 gm/ Dextrose) 100 mls @ 200 mls/hr IVPB Q8H-IV [facility]; Protocol Last Admin: 04/16/19 09:45 Dose: 200 mls/hr Pantoprazole Sodium 80 mg/ (Sodium Chloride) 100 mls @ 10 mls/hr IVPB Q10H [facility] Last Admin: 04/16/19 08:09 Dose: 10 mls/hr Vancomycin HCl 1,250 mg/ (Dextrose) 250 mls @ 250 mls/2 hr IVPB DAILY [facility]; Protocol Last Admin: 04/15/19 12:00 Dose: 250 mls/2 hr Dextrose/Lactated Ringer's (D5-Lr -) 1,000 mls @ 42 mls/hr IV ASDIR BASSEM Last Admin: 04/16/19 05:45 Dose: 42 mls/hr Octreotide Acetate 200 mcg/Octreotide Acetate 1,000 mcg/Dextrose 500 mls @ 20.833 mls/hr IVPB ASDIR BASSEM Last Admin: 04/15/19 23:22 Dose: 20.833 mls/hr Insulin Aspart (Novolog Vial Sliding Scale -) 1 vial SQ ACHS [facility]; Protocol Last Admin: 04/16/19 07:09 Dose: Not Given Lisinopril (Prinivil) 5 mg PEG DAILY [facility] Last Admin: 04/15/19 11:58 Dose: Not Given Metoprolol Tartrate (Lopressor -) 50 mg PEG Q6HPO [facility] Last Admin: 04/16/19 05:40 Dose: Not Given Metoprolol Tartrate (Lopressor Injection -) 5 mg IVPUSH Q4H PRN PRN Reason: HYPERTENSION Last Admin: 04/16/19 05:43 Dose: 5 mg Metoprolol Tartrate (Lopressor Injection -) 10 mg IVPUSH Q4H PRN PRN Reason: TACHYCARDIA Last Admin: 04/15/19 23:01 Dose: 10 mg Morphine Sulfate (Morphine Sulfate) 2 mg IVPUSH Q4H PRN PRN Reason: PAIN LEVEL 6-10 Last Admin: 04/16/19 08:15 Dose: 2 mg Ondansetron HCl (Zofran Injection) 4 mg IVPUSH Q6H PRN PRN Reason: NAUSEA AND/OR VOMITING Sodium Chloride (Normal Saline For Inhalation -) 3 ml IH Q6H PRN PRN Reason: COUGH Last Admin: 04/10/19 04:00 Dose: 3 ml Gen: vented, awake Heart: tachycardic, regular Lung: decreased breath sounds at the bases Abd: soft, nontender Ext: + edema Laboratory Results - last 24 hr 04/15/19 04/15/19 04/15/19 06:10 12:44 13:10 WBC 19.5 H RBC 3.45 L Hgb 10.2 L Hct 30.8 L D MCV 89.3 MCH 29.4 MCHC 32.9 RDW 17.9 H Plt Count 171 MPV 8.5 Absolute Neuts (auto) Neutrophils % Neutrophils % (Manual) Band Neutrophils % Lymphocytes % Lymphocytes % (Manual) Monocytes % Monocytes % (Manual) Eosinophils % Eosinophils % (Manual) Basophils % Basophils % (Manual) Myelocytes % (Man) Promyelocytes % (Man) Blast Cells % (Manual) Nucleated RBC % Metamyelocytes Hypochromia Platelet Estimate Polychromasia Anisocytosis Microcytosis Macrocytosis PT with INR INR PTT (Actin FS) Fibrinogen Sodium Potassium Chloride Carbon Dioxide Anion Gap BUN Creatinine Est GFR (CKD-EPI)AfAm Est GFR (CKD-EPI)NonAf POC Glucometer 180 Random Glucose Calcium Phosphorus Magnesium Total Bilirubin AST ALT Alkaline Phosphatase Total Protein Albumin Hep A IgM Ab Confirm Negative Hep Bs Antigen Negative Hep B Core IgM Ab Negative Hepatitis C Ab (EIA) <0.1 Blood Type Antibody Screen Crossmatch 04/15/19 04/16/19 04/16/19 21:13 05:30 05:30 WBC RBC Hgb Hct MCV MCH MCHC RDW Plt Count MPV Absolute Neuts (auto) Neutrophils % Neutrophils % (Manual) Band Neutrophils % Lymphocytes % Lymphocytes % (Manual) Monocytes % Monocytes % (Manual) Eosinophils % Eosinophils % (Manual) Basophils % Basophils % (Manual) Myelocytes % (Man) Promyelocytes % (Man) Blast Cells % (Manual) Nucleated RBC % Metamyelocytes Hypochromia Platelet Estimate Polychromasia Anisocytosis Microcytosis Macrocytosis PT with INR 15.00 H INR 1.27 H PTT (Actin FS) 34.4 Fibrinogen 295.0 Sodium Potassium Chloride Carbon Dioxide Anion Gap BUN Creatinine Est GFR (CKD-EPI)AfAm Est GFR (CKD-EPI)NonAf POC Glucometer 150 Random Glucose Calcium Phosphorus Magnesium Total Bilirubin AST ALT Alkaline Phosphatase Total Protein Albumin Hep A IgM Ab Confirm Hep Bs Antigen Hep B Core IgM Ab Hepatitis C Ab (EIA) Blood Type Antibody Screen Crossmatch 04/16/19 04/16/19 04/16/19 05:30 05:30 05:30 WBC 15.9 H RBC 2.92 L Hgb 8.7 L Hct 26.2 L MCV 89.6 MCH 29.7 MCHC 33.2 RDW 18.7 H Plt Count 167 MPV 8.8 Absolute Neuts (auto) 14.3 H Neutrophils % 89.7 H Neutrophils % (Manual) 91.0 H Band Neutrophils % 1.0 Lymphocytes % 4.2 L Lymphocytes % (Manual) 1.0 L D Monocytes % 4.5 Monocytes % (Manual) 3 L Eosinophils % 1.2 Eosinophils % (Manual) 1.0 Basophils % 0.4 Basophils % (Manual) 1.0 D Myelocytes % (Man) 1 Promyelocytes % (Man) 0 Blast Cells % (Manual) 0 Nucleated RBC % 0 Metamyelocytes 1 Hypochromia 0 Platelet Estimate Normal Polychromasia 1+ Anisocytosis 1+ Microcytosis 1+ Macrocytosis 0 PT with INR INR PTT (Actin FS) Fibrinogen Sodium 145 Potassium 3.7 Chloride 117 H Carbon Dioxide 20 L Anion Gap 8 BUN 40.1 H Creatinine 1.4 H Est GFR (CKD-EPI)AfAm 53.85 Est GFR (CKD-EPI)NonAf 46.46 POC Glucometer Random Glucose 138 H Calcium 7.4 L Phosphorus 3.4 Magnesium 1.8 Total Bilirubin 1.2 H AST 20 ALT 16 Alkaline Phosphatase 107 Total Protein 5.8 L Albumin 1.4 L Hep A IgM Ab Confirm Hep Bs Antigen Hep B Core IgM Ab Hepatitis C Ab (EIA) Blood Type O NEGATIVE Antibody Screen Negative Crossmatch See Detail 04/16/19 05:41 WBC RBC Hgb Hct MCV MCH MCHC RDW Plt Count MPV Absolute Neuts (auto) Neutrophils % Neutrophils % (Manual) Band Neutrophils % Lymphocytes % Lymphocytes % (Manual) Monocytes % Monocytes % (Manual) Eosinophils % Eosinophils % (Manual) Basophils % Basophils % (Manual) Myelocytes % (Man) Promyelocytes % (Man) Blast Cells % (Manual) Nucleated RBC % Metamyelocytes Hypochromia Platelet Estimate Polychromasia Anisocytosis Microcytosis Macrocytosis PT with INR INR PTT (Actin FS) Fibrinogen Sodium Potassium Chloride Carbon Dioxide Anion Gap BUN Creatinine Est GFR (CKD-EPI)AfAm Est GFR (CKD-EPI)NonAf POC Glucometer 145 Random Glucose Calcium Phosphorus Magnesium Total Bilirubin AST ALT Alkaline Phosphatase Total Protein Albumin Hep A IgM Ab Confirm Hep Bs Antigen Hep B Core IgM Ab Hepatitis C Ab (EIA) Blood Type Antibody Screen Crossmatch ASSESSMENT AND PLAN: Atrial Flutter with RVR GI Bleed Acute Blood Loss Anemia Chronic Respiratory Failure UTI/Pneumonia/Sepsis Lactic Acidosis CAD s/p CABG COPD HTN Hyperlipidemia Ascites - ABX Per ID - protonix - monitor H/H - Normal transfusion thresholds - rate control - holding anticoagulation - NPO - DVT/GI prophylaxis - Will need IV Access - continue ICU monitoring for tenuous overall status Dr Castro
[2019-04-16] MEDS ORDERED: MIDAZOLAM HCL 2 MG/2 ML SINGLE DOSE VIAL ONE ×2 (11:37→15:00)
--- NOTE | 2019-04-16 11:42 | PN ---
Progress Note (short form) - Note Progress Note: 83 multiple medical problems, s/p EGD. Bleeding source not found. Continued bloody BM per ICU documentation. CVC placement in progress. Vital Signs Period Temp Pulse Resp BP Sys/Kang Pulse Ox Last 24 Hr 97.3 F-97.7 F 96-136 14-32 105-136/49-112 100-100 CBC, BMP 04/16/19 05:30 04/16/19 05:30 Intake & Output 04/15/19 04/16/19 04/16/19 23:59 07:59 15:59 Intake Total 910 504 Output Total 100 100 Balance 810 404 Weight 218 lb - No anesthetic complications - Pending plan for repeat EGD - Care per ICU staff
--- NOTE | 2019-04-16 12:35 | PROC ---
Central Line Insertion Indication: Poor Venous Access Risks and Benefits Explained: Yes Consent on Chart: Yes Central Line: Triple Lumen Catheter Anesthesia: 1% Lidocaine Sterile Technique: Yes Ultrasound Guided Assistance: Yes Position: Left Internal Jugular Post Insertion: Yes: Chest X-Ray Ordered Sterile Dressing Applied: Yes
--- NOTE | 2019-04-16 13:06 | CONSULT ---
Admitting History and Physical - Admission History of Present Illness: This is an 83 y/o man from [facility] with a PMHx of CABG, ESRD s/p nephrostomy tubes, Pneumonia, Chronic Respiratory Failure s/p Tracheotomy/ Vent dependent, PEG tube, Diabetes Mellitus, Anemia, who presented to the ED for evaluation of coffee ground emesis and respiratory distress. Passy Thais evaluation has been ordered. Upon review of paper medicatal chart from [facility] and [facility], pt with h/o Dysphagia. Pt was using PMV and had started pleasure PO trials months ago at [facility] but this needed to be terminated as he was unstable sec to recurrent infections. PMV trials again started at [facility], with fair tolerance but intermittent increase in HR and desaturation, especially with attempt to wean. Info obtained from RT at [facility] and family members. PO trials /swallowing evaluation not attempted. RT reported voice was good and pt tolerated PMV. Pt has size 6 Shiley tracheostomy tube. - Past Medical History Cardiovascular: Yes: Aneurysm, CAD, HTN, Hyperlipdemia Pulmonary: Yes: COPD, Pneumonia, Other (trach/vent dependent) Renal/: Yes: Renal Failure Heme/Onc: Yes: Anemia Endocrine: Yes: Diabetes Mellitus - Past Surgical History Past Surgical History: Yes: AAA Repair, CABG Additional Past Surgical History: Trach PEG Nephrostomy Tubes - Advance Directives Advance Directives: Yes: DNR - Smoking History Smoking history: Unknown if ever smoked Have you smoked in the past 12 months: No - Alcohol/Substance Use Hx Alcohol Use: No History of Substance Use: reports: None - Social History ADL: Support Services History of Recent Travel: No History - Admission Reason For Visit: URINARY TRACT INFECTION, GENERALIZES EDEMA, UPPER - General Mental Status: Alert and Oriented, Awake and Alert, Able to Follow Commands Attention: Intact - Hearing Hearing: Normal Speech Evaluation - Communication Primary Language: FIJIAN - Swallow Evaluation/Bedside Assessment Current Nutritional Intake: NPO Facial Symmetry at Rest: Symmetrical Facial Symmetry on Retraction: Symmetrical Facial Movement: Controlled Against Resistance Opening: Normal Against Resistance Closing: Normal Pucker Lips: Normal Lingual Movement: Normal, Symmetric Lingual Speed of Movement: Normal Lingual Movement Strgth Against Opposition: Normal Lingual Movement Characteristics: Normal Recommendations - Speech Evaluation, Impression/Plan Impression: Pt pending EGD today. Chart reviewed. Pt/family interviewed. PMV deferred until Friday, if medically stable. Recommendations: Passy [place] Valve, Other (Plan is for PMV, to enable verbal communication and facilitate weaning from ventilator, if possible. Possibly donaldo garcia to follow.)
--- NOTE | 2019-04-16 13:37 | PN ---
Progress Note (short form) - Note Progress Note: cta no bleeding noted now with central line Vital Signs Period Temp Pulse Resp BP Sys/Kang Pulse Ox Last 24 Hr 97.3 F-97.7 F 90-136 14-32 101-136/49-112 97-100 alert trach to vent cor-rrr lungs decreased bs at bases abd soft,nt +GT ext no edema CBC, BMP 04/16/19 05:30 04/16/19 05:30 Microbiology 04/13/19 13:50 Stool Clostridioides difficile Antigen - Final 04/13/19 13:50 Stool Clostridioides difficile Toxin Assay - Final 04/06/19 19:30 Blood - Peripheral Venous Blood Culture - Final NO GROWTH AFTER 5 DAYS INCUBATION 04/06/19 19:30 Blood - Peripheral Venous Blood Culture - Final NO GROWTH AFTER 5 DAYS INCUBATION 04/08/19 07:50 Sputum - Endotrachea Suction/Ventilator Gram Stain - Final 04/08/19 07:50 Sputum - Endotrachea Suction/Ventilator Sputum Culture - Final Pseudomonas Aeruginosa Mr S Aureus 04/02/19 14:54 Peritoneal Fluid Gram Stain - Final 04/02/19 14:54 Peritoneal Fluid Body Fluid Culture - Final NO GROWTH OF AEROBIC ORGANISMS AFTER 48 HOURS INCUBATION 04/02/19 14:54 Peritoneal Fluid Anaerobic Culture - Final NO ANAEROBES WERE ISOLATED 04/02/19 14:54 Peritoneal Fluid AFB Smear Concentration - Preliminary 04/02/19 14:54 Peritoneal Fluid Mycobacterial Culture - Preliminary 03/31/19 01:27 Blood - Peripheral Venous Blood Culture - Final NO GROWTH AFTER 5 DAYS INCUBATION 03/31/19 01:27 Blood - Peripheral Venous Blood Culture - Final NO GROWTH AFTER 5 DAYS INCUBATION 04/02/19 14:54 Peritoneal Fluid ROB Preparation - Preliminary 04/02/19 14:54 Peritoneal Fluid Fungal Culture - Preliminary 03/31/19 02:17 Urine - Urine Nephrostomy Tube Left Urine Culture - Final Klebsiella Pneumoniae - Esbl cxray dense retrocardiac area a/p GI bleed- per GI ?aspiration pneumonia ?aspiration, 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
[2019-04-16] MEDS: VANCOMYCIN HCL 1,250 MG in DEXTROSE 5%-WATER - 250 ML IVPB SCH (13:45)
[2019-04-16] MEDS: OCTREOTIDE ACETATE 200 MCG, OCTREOTIDE ACETATE 1,000 MCG in DEXTROSE 5%-WATER - 496 ML IVPB SCH (14:00)
--- NOTE | 2019-04-16 14:51 | PN ---
Physical Exam: SUBJECTIVE: Patient seen and examined. Lying in bed, trached to vent. Central line placed today. Receiving 2 units pRBC's d/t hgb drop 10.2--> 8.7. OBJECTIVE: Vital Signs Period Temp Pulse Resp BP Sys/Kang Pulse Ox Last 24 Hr 97.3 F-97.7 F 90-136 14-32 101-136/49-112 97-100 GENERAL: Lying in bed NAD HEENT: NCAT. Conjunctiva clear. Left IJ central line in place. Trached to vent. LUNGS: clear to auscultation + vent sounds HEART: RRR, S1, S2 without murmurs ABDOMEN: Soft NTND. G- tube, b/l nephrostomy tubes in place; all C/D/I no signs of infection EXTREMITIES: 2+ pulses palpated b/l, 1+ edema LE's SKIN: 4x 6cm sacral ulcer present. Base is clean, non-erythematous. Multiple healing ecchymoses present to upper extremities. Laboratory Results - last 24 hr 04/15/19 04/15/19 04/15/19 06:10 06:10 21:13 WBC RBC Hgb Hct MCV MCH MCHC RDW Plt Count MPV Absolute Neuts (auto) Neutrophils % Neutrophils % (Manual) Band Neutrophils % Lymphocytes % Lymphocytes % (Manual) Monocytes % Monocytes % (Manual) Eosinophils % Eosinophils % (Manual) Basophils % Basophils % (Manual) Myelocytes % (Man) Promyelocytes % (Man) Blast Cells % (Manual) Nucleated RBC % Metamyelocytes Hypochromia Platelet Estimate Polychromasia Anisocytosis Microcytosis Macrocytosis PT with INR INR PTT (Actin FS) Fibrinogen Sodium Potassium Chloride Carbon Dioxide Anion Gap BUN Creatinine Est GFR (CKD-EPI)AfAm Est GFR (CKD-EPI)NonAf POC Glucometer 150 Random Glucose Calcium Ionized Calcium 4.7 Phosphorus Magnesium Total Bilirubin AST ALT Alkaline Phosphatase Total Protein Albumin Hep A IgM Ab Confirm Negative Hep Bs Antigen Negative Hep B Core IgM Ab Negative Hepatitis C Ab (EIA) <0.1 Blood Type Antibody Screen Crossmatch 04/16/19 04/16/19 04/16/19 05:30 05:30 05:30 WBC RBC Hgb Hct MCV MCH MCHC RDW Plt Count MPV Absolute Neuts (auto) Neutrophils % Neutrophils % (Manual) Band Neutrophils % Lymphocytes % Lymphocytes % (Manual) Monocytes % Monocytes % (Manual) Eosinophils % Eosinophils % (Manual) Basophils % Basophils % (Manual) Myelocytes % (Man) Promyelocytes % (Man) Blast Cells % (Manual) Nucleated RBC % Metamyelocytes Hypochromia Platelet Estimate Polychromasia Anisocytosis Microcytosis Macrocytosis PT with INR 15.00 H INR 1.27 H PTT (Actin FS) 34.4 Fibrinogen 295.0 Sodium Potassium Chloride Carbon Dioxide Anion Gap BUN Creatinine Est GFR (CKD-EPI)AfAm Est GFR (CKD-EPI)NonAf POC Glucometer Random Glucose Calcium Ionized Calcium Phosphorus Magnesium Total Bilirubin AST ALT Alkaline Phosphatase Total Protein Albumin Hep A IgM Ab Confirm Hep Bs Antigen Hep B Core IgM Ab Hepatitis C Ab (EIA) Blood Type O NEGATIVE Antibody Screen Negative Crossmatch See Detail 04/16/19 04/16/19 04/16/19 05:30 05:30 05:41 WBC 15.9 H RBC 2.92 L Hgb 8.7 L Hct 26.2 L MCV 89.6 MCH 29.7 MCHC 33.2 RDW 18.7 H Plt Count 167 MPV 8.8 Absolute Neuts (auto) 14.3 H Neutrophils % 89.7 H Neutrophils % (Manual) 91.0 H Band Neutrophils % 1.0 Lymphocytes % 4.2 L Lymphocytes % (Manual) 1.0 L D Monocytes % 4.5 Monocytes % (Manual) 3 L Eosinophils % 1.2 Eosinophils % (Manual) 1.0 Basophils % 0.4 Basophils % (Manual) 1.0 D Myelocytes % (Man) 1 Promyelocytes % (Man) 0 Blast Cells % (Manual) 0 Nucleated RBC % 0 Metamyelocytes 1 Hypochromia 0 Platelet Estimate Normal Polychromasia 1+ Anisocytosis 1+ Microcytosis 1+ Macrocytosis 0 PT with INR INR PTT (Actin FS) Fibrinogen Sodium 145 Potassium 3.7 Chloride 117 H Carbon Dioxide 20 L Anion Gap 8 BUN 40.1 H Creatinine 1.4 H Est GFR (CKD-EPI)AfAm 53.85 Est GFR (CKD-EPI)NonAf 46.46 POC Glucometer 145 Random Glucose 138 H Calcium 7.4 L Ionized Calcium Phosphorus 3.4 Magnesium 1.8 Total Bilirubin 1.2 H AST 20 ALT 16 Alkaline Phosphatase 107 Total Protein 5.8 L Albumin 1.4 L Hep A IgM Ab Confirm Hep Bs Antigen Hep B Core IgM Ab Hepatitis C Ab (EIA) Blood Type Antibody Screen Crossmatch Active Medications Generic Name Dose Route Start Last Admin Trade Name Freq PRN Reason Stop Dose Admin Diltiazem HCl 30 mg 04/13/19 04:31 04/16/19 05:40 Cardizem - NR Not Given Q6HPO BASSEM Piperacillin Sod/Tazobactam 100 mls @ 200 mls/hr 04/08/19 18:00 04/16/19 09: 45 Sod 4.5 gm/ Dextrose IVPB 200 mls/hr Q8H-IV BASSEM Administration Protocol Pantoprazole Sodium 80 mg/ 100 mls @ 10 mls/hr 04/13/19 12:45 04/16/19 11:30 Sodium Chloride IVPB 10 mls/hr Q10H BASSEM Administration 8 MG/HR Vancomycin HCl 1,250 mg/ 250 mls @ 250 mls/2 hr 04/14/19 11:00 04/15/19 12:00 Dextrose IVPB 250 mls/2 hr DAILY BASSEM Administration Protocol Dextrose/Lactated Ringer's 1,000 mls @ 42 mls/hr 04/14/19 17:15 04/16/19 05: 45 D5-Lr - IV 42 mls/hr ASDIR BASSEM Administration Octreotide Acetate 200 mcg/ 500 mls @ 20.833 mls/hr 04/15/19 00:15 04/15/19 23:22 Octreotide Acetate 1,000 mcg/ IVPB 20.833 mls/hr Dextrose ASDIR BASSEM Administration Insulin Aspart 1 vial 04/09/19 11:00 04/16/19 07:09 Novolog Vial Sliding Scale - SQ Not Given ACHS BASSEM Protocol Lisinopril 5 mg 04/02/19 10:00 04/16/19 10:29 Prinivil PEG Not Given DAILY BASSEM Metoprolol Tartrate 50 mg 04/02/19 01:00 04/16/19 05:40 Lopressor - PEG Not Given Q6HPO BASSEM Metoprolol Tartrate 5 mg 04/14/19 13:38 04/16/19 05:43 Lopressor Injection - IVPUSH 5 mg Q4H PRN Administration HYPERTENSION Metoprolol Tartrate 10 mg 04/14/19 13:38 04/15/19 23:01 Lopressor Injection - IVPUSH 10 mg Q4H PRN Administration TACHYCARDIA Morphine Sulfate 2 mg 04/14/19 14:03 04/16/19 08:15 Morphine Sulfate IVPUSH 2 mg Q4H PRN Administration PAIN LEVEL 6-10 Ondansetron HCl 4 mg 04/06/19 02:10 Zofran Injection IVPUSH Q6H PRN NAUSEA AND/OR VOMITING Sodium Chloride 3 ml 04/02/19 02:23 04/10/19 04:00 Normal Saline For Inhalation - IH 3 ml Q6H PRN Administration COUGH ASSESSMENT/PLAN: 83 M with PMH of CABG, ESRD with b/l nephrosotomy tubes, PNA, chronic respiratory failure s/p trach, PEG tube, DM, anemia who is under ICU management for tachycardia 2/2 to ongoing GI bleed. Neuro -Alert -No sedation Cardiovascular -Hx of CABG, Afib. -Tachycardic, likely in setting of GI bleed -continue lopressor 10mg Q4H PRN for tachycardia >140, 5 mg if tachy 120-139bpm -c/w cardizem, lisinopril via G-tube -Maintain hgb >8, transfuse prn; receiving 2 units pRBCs today, f/u cbc post- transfusion -cardio following Pulm -Tracheostomy to vent; Vent settings VC/AC: VT of 400, RR 12, PEEP 5, FiO2 40% -Sputum culture + for MRSA -Continue abx Vanc (day #3) & Zoysn (day #10) GI -This morning had bloody bowel movement; hgb 8.7; transfusing 2 units prbc -EGD difficult to visualize, GI to repeat EGD today -CTA a/p: no extravasation, no IR procedure performed S/p paracentesis for ascitic fluid -C/w Octreotide drip, ppi -Zofran prn -GI following Endocrine -Patient has hx of DM -ISS -BGMS ACHS Heme -Anemia -F/u post transfusion cbc -trend H&H; transfusion threshold <8 Renal -Cr 1.4 today -C/w IVF -trend Cr ID -Sputum + MRSA, urine cx + Klebsiella ESBL -S/p 7 days gentamicin -Continue Vanc/Zosyn-- f/u vanc trough -Continue contact isolation for CRE -ID following patient PPX -SCD's; hold chemical AC in setting of GI bleed -PPI drip, octreotide drip F: gentle hydration D5/LR @42 ml/hr E: trend CMP replete lytes prn N: NPO in setting of GI bleed-- evaluated by speech & swallow, Passy Thais evaluation ordered #Dispo Continue to monitor under ICU care Visit type - Emergency Visit Emergency Visit: No - New Patient This patient is new to me today: No - Critical Care Critical Care patient: Yes Total Critical Care Time (in minutes): 36 Critical Care Statement: The care of this patient involved high complexity decision making to prevent further life threatening deterioration of the patient 's condition and/or to evaluate & treat vital organ system(s) failure or risk of failure. ATTENDING PHYSICIAN STATEMENT I saw and evaluated the patient. I reviewed the resident's note and discussed the case with the resident. I agree with the resident's findings and plan as documented. SUBJECTIVE: OBJECTIVE: ASSESSMENT AND PLAN:
--- NOTE | 2019-04-16 15:00 | PN ---
Physical Exam: SUBJECTIVE: Patient seen and examined for another EGD today CTA did not show source of bleeding cont to bleed 2 units PRBC today giving OBJECTIVE: Vital Signs Period Temp Pulse Resp BP Sys/Kang Pulse Ox Last 24 Hr 97.3 F-97.7 F 90-136 14-32 101-136/49-112 97-100 GENERAL: awake, alert.follow commands HEAD:NC/AT NECK: Tracheostomy in plac. LUNGS:decrease breath sound at the bases HEART: Tachycardic, s1 s2 present, no murmurs. ABDOMEN: Soft, diffuse tenderness , mild distended , normoactive bowel sounds, gastrostomy tube in place clean and dry . Nephrostomy tubes in place with no erythema. EXTREMITIES: 2+ pulses, warm, well-perfused, no edema. SKIN: 4x 6cm saccral ulcer, clean base, no erythema diffuse pupura all over Laboratory Results - last 24 hr 04/13/19 04/15/19 04/15/19 12:00 06:10 06:10 WBC RBC Hgb Hct MCV MCH MCHC RDW Plt Count MPV Absolute Neuts (auto) Neutrophils % Neutrophils % (Manual) Band Neutrophils % Lymphocytes % Lymphocytes % (Manual) Monocytes % Monocytes % (Manual) Eosinophils % Eosinophils % (Manual) Basophils % Basophils % (Manual) Myelocytes % (Man) Promyelocytes % (Man) Blast Cells % (Manual) Nucleated RBC % Metamyelocytes Hypochromia Platelet Estimate Polychromasia Anisocytosis Microcytosis Macrocytosis PT with INR INR PTT (Actin FS) Fibrinogen Sodium Potassium Chloride Carbon Dioxide Anion Gap BUN Creatinine Est GFR (CKD-EPI)AfAm Est GFR (CKD-EPI)NonAf POC Glucometer Random Glucose Calcium Ionized Calcium 4.7 Phosphorus Magnesium Total Bilirubin AST ALT Alkaline Phosphatase Total Protein Albumin Hep A IgM Ab Confirm Negative Hep Bs Antigen Negative Hep B Core IgM Ab Negative Hepatitis C Ab (EIA) <0.1 Blood Type O NEGATIVE Antibody Screen Negative Crossmatch See Detail 04/15/19 04/16/19 04/16/19 21:13 05:30 05:30 WBC RBC Hgb Hct MCV MCH MCHC RDW Plt Count MPV Absolute Neuts (auto) Neutrophils % Neutrophils % (Manual) Band Neutrophils % Lymphocytes % Lymphocytes % (Manual) Monocytes % Monocytes % (Manual) Eosinophils % Eosinophils % (Manual) Basophils % Basophils % (Manual) Myelocytes % (Man) Promyelocytes % (Man) Blast Cells % (Manual) Nucleated RBC % Metamyelocytes Hypochromia Platelet Estimate Polychromasia Anisocytosis Microcytosis Macrocytosis PT with INR 15.00 H INR 1.27 H PTT (Actin FS) 34.4 Fibrinogen 295.0 Sodium Potassium Chloride Carbon Dioxide Anion Gap BUN Creatinine Est GFR (CKD-EPI)AfAm Est GFR (CKD-EPI)NonAf POC Glucometer 150 Random Glucose Calcium Ionized Calcium Phosphorus Magnesium Total Bilirubin AST ALT Alkaline Phosphatase Total Protein Albumin Hep A IgM Ab Confirm Hep Bs Antigen Hep B Core IgM Ab Hepatitis C Ab (EIA) Blood Type Antibody Screen Crossmatch 04/16/19 04/16/19 04/16/19 05:30 05:30 05:30 WBC 15.9 H RBC 2.92 L Hgb 8.7 L Hct 26.2 L MCV 89.6 MCH 29.7 MCHC 33.2 RDW 18.7 H Plt Count 167 MPV 8.8 Absolute Neuts (auto) 14.3 H Neutrophils % 89.7 H Neutrophils % (Manual) 91.0 H Band Neutrophils % 1.0 Lymphocytes % 4.2 L Lymphocytes % (Manual) 1.0 L D Monocytes % 4.5 Monocytes % (Manual) 3 L Eosinophils % 1.2 Eosinophils % (Manual) 1.0 Basophils % 0.4 Basophils % (Manual) 1.0 D Myelocytes % (Man) 1 Promyelocytes % (Man) 0 Blast Cells % (Manual) 0 Nucleated RBC % 0 Metamyelocytes 1 Hypochromia 0 Platelet Estimate Normal Polychromasia 1+ Anisocytosis 1+ Microcytosis 1+ Macrocytosis 0 PT with INR INR PTT (Actin FS) Fibrinogen Sodium 145 Potassium 3.7 Chloride 117 H Carbon Dioxide 20 L Anion Gap 8 BUN 40.1 H Creatinine 1.4 H Est GFR (CKD-EPI)AfAm 53.85 Est GFR (CKD-EPI)NonAf 46.46 POC Glucometer Random Glucose 138 H Calcium 7.4 L Ionized Calcium Phosphorus 3.4 Magnesium 1.8 Total Bilirubin 1.2 H AST 20 ALT 16 Alkaline Phosphatase 107 Total Protein 5.8 L Albumin 1.4 L Hep A IgM Ab Confirm Hep Bs Antigen Hep B Core IgM Ab Hepatitis C Ab (EIA) Blood Type O NEGATIVE Antibody Screen Negative Crossmatch See Detail 04/16/19 05:41 WBC RBC Hgb Hct MCV MCH MCHC RDW Plt Count MPV Absolute Neuts (auto) Neutrophils % Neutrophils % (Manual) Band Neutrophils % Lymphocytes % Lymphocytes % (Manual) Monocytes % Monocytes % (Manual) Eosinophils % Eosinophils % (Manual) Basophils % Basophils % (Manual) Myelocytes % (Man) Promyelocytes % (Man) Blast Cells % (Manual) Nucleated RBC % Metamyelocytes Hypochromia Platelet Estimate Polychromasia Anisocytosis Microcytosis Macrocytosis PT with INR INR PTT (Actin FS) Fibrinogen Sodium Potassium Chloride Carbon Dioxide Anion Gap BUN Creatinine Est GFR (CKD-EPI)AfAm Est GFR (CKD-EPI)NonAf POC Glucometer 145 Random Glucose Calcium Ionized Calcium Phosphorus Magnesium Total Bilirubin AST ALT Alkaline Phosphatase Total Protein Albumin Hep A IgM Ab Confirm Hep Bs Antigen Hep B Core IgM Ab Hepatitis C Ab (EIA) Blood Type Antibody Screen Crossmatch Active Medications Generic Name Dose Route Start Last Admin Trade Name Freq PRN Reason Stop Dose Admin Diltiazem HCl 30 mg 04/13/19 04:31 04/16/19 05:40 Cardizem - NR Not Given Q6HPO [facility] Piperacillin Sod/Tazobactam 100 mls @ 200 mls/hr 04/08/19 18:00 04/16/19 09: 45 Sod 4.5 gm/ Dextrose IVPB 200 mls/hr Q8H-IV [facility] Administration Protocol Pantoprazole Sodium 80 mg/ 100 mls @ 10 mls/hr 04/13/19 12:45 04/16/19 11:30 Sodium Chloride IVPB 10 mls/hr Q10H [facility] Administration 8 MG/HR Vancomycin HCl 1,250 mg/ 250 mls @ 250 mls/2 hr 04/14/19 11:00 04/15/19 12:00 Dextrose IVPB 250 mls/2 hr DAILY [facility] Administration Protocol Dextrose/Lactated Ringer's 1,000 mls @ 42 mls/hr 04/14/19 17:15 04/16/19 05: 45 D5-Lr - IV 42 mls/hr ASDIR [facility] Administration Octreotide Acetate 200 mcg/ 500 mls @ 20.833 mls/hr 04/15/19 00:15 04/15/19 23:22 Octreotide Acetate 1,000 mcg/ IVPB 20.833 mls/hr Dextrose ASDIR [facility] Administration Insulin Aspart 1 vial 04/09/19 11:00 04/16/19 07:09 Novolog Vial Sliding Scale - SQ Not Given ACHS [facility] Protocol Lisinopril 5 mg 04/02/19 10:00 04/16/19 10:29 Prinivil PEG Not Given DAILY [facility] Metoprolol Tartrate 50 mg 04/02/19 01:00 04/16/19 05:40 Lopressor - PEG Not Given Q6HPO [facility] Metoprolol Tartrate 5 mg 04/14/19 13:38 04/16/19 05:43 Lopressor Injection - IVPUSH 5 mg Q4H PRN Administration HYPERTENSION Metoprolol Tartrate 10 mg 04/14/19 13:38 04/15/19 23:01 Lopressor Injection - IVPUSH 10 mg Q4H PRN Administration TACHYCARDIA Morphine Sulfate 2 mg 04/14/19 14:03 04/16/19 08:15 Morphine Sulfate IVPUSH 2 mg Q4H PRN Administration PAIN LEVEL 6-10 Ondansetron HCl 4 mg 04/06/19 02:10 Zofran Injection IVPUSH Q6H PRN NAUSEA AND/OR VOMITING Sodium Chloride 3 ml 04/02/19 02:23 04/10/19 04:00 Normal Saline For Inhalation - IH 3 ml Q6H PRN Administration COUGH CBC, BMP 04/16/19 05:30 04/16/19 05:30 ASSESSMENT/PLAN: #Atrial Flutter with RVR #GI Bleed #Acute Blood Loss Anemia #Chronic Respiratory Failure #UTI/Pneumonia/Sepsis #Lactic Acidosis #CAD s/p CABG #COPD #HTN #Hyperlipidemia #Ascites # hypernatremia # leucocytosis * continue antibiotics * protonix gtt, octeriotide gtt , monitor H/H, transfuse as needed maintain HgB > 9 * holding anticoagulation * GI f/u, NPO * DVT/GI prophylaxis * PT, PTT, fibrinogen , fibrin degradation products , peripheral smear , left , cmp * CTA abdomen with no active bleeding * follow EGD reports Visit type - Emergency Visit Emergency Visit: Yes ED Registration Date: 03/31/19 Care time: The patient presented to the Emergency Department on the above date and was hospitalized for further evaluation of their emergent condition. - New Patient This patient is new to me today: No - Critical Care Critical Care patient: Yes Total Critical Care Time (in minutes): 45 Critical Care Statement: The care of this patient involved high complexity decision making to prevent further life threatening deterioration of the patient 's condition and/or to evaluate & treat vital organ system(s) failure or risk of failure. ATTENDING PHYSICIAN STATEMENT I saw and evaluated the patient. I reviewed the resident's note and discussed the case with the resident. I agree with the resident's findings and plan as documented. SUBJECTIVE: OBJECTIVE: ASSESSMENT AND PLAN:
--- NOTE | 2019-04-16 15:53 | PN ---
Progress Note (short form) - Note Progress Note: Repeat EGD complete. Report left in procedural section of physical chart and will be scanned into [facility]. No active bleeding noted this time. Problem List - Problems (1) Melena Code(s): K92.1 - MELENA
--- NOTE | 2019-04-16 16:50 | PN ---
Progress Note, Physician Chief Complaint: Tachycardia History of Present Illness: This is an 83 year old male with a pmhx of prostate CA s/p radiation, CAD s/p CABG 05/2018, dm, htn, esrd, copd, and s/p Trach/vent/peg sent from halfway for coffee ground emesis. Patient cannot give history. EKG: atach/flutter with VR 136bpm, NIVCD CT chest/abd/pelvis: Bilateral pleural effusions, consolidation, moderate to large ascites 4.6cm Throacic anuerysm Noted to have episodes of vomiting and tachycardia ECG showed aflutter with 2:1 block, given IV dilt. 83 year old male with a pmhx of prostate CA s/p radiation, CAD s/p CABG 05/2018, dm, htn, esrd, copd, and s/p Trach/vent/peg sent from halfway for coffee ground emesis. Patient cannot give history. EKG: atach/flutter with VR 136bpm, NIVCD . - Current Medication List Current Medications: Active Medications Diltiazem HCl (Cardizem -) 30 mg NR Q6HPO [facility] Last Admin: 04/16/19 05:40 Dose: Not Given Piperacillin Sod/Tazobactam (Sod 4.5 gm/ Dextrose) 100 mls @ 200 mls/hr IVPB Q8H-IV [facility]; Protocol Last Admin: 04/16/19 09:45 Dose: 200 mls/hr Pantoprazole Sodium 80 mg/ (Sodium Chloride) 100 mls @ 10 mls/hr IVPB Q10H [facility] Last Admin: 04/16/19 11:30 Dose: 10 mls/hr Vancomycin HCl 1,250 mg/ (Dextrose) 250 mls @ 250 mls/2 hr IVPB DAILY [facility]; Protocol Last Admin: 04/15/19 12:00 Dose: 250 mls/2 hr Dextrose/Lactated Ringer's (D5-Lr -) 1,000 mls @ 42 mls/hr IV ASDIR [facility] Last Admin: 04/16/19 05:45 Dose: 42 mls/hr Octreotide Acetate 200 mcg/Octreotide Acetate 1,000 mcg/Dextrose 500 mls @ 20.833 mls/hr IVPB ASDIR [facility] Last Admin: 04/15/19 23:22 Dose: 20.833 mls/hr Insulin Aspart (Novolog Vial Sliding Scale -) 1 vial SQ ACHS [facility]; Protocol Last Admin: 04/16/19 07:09 Dose: Not Given Lisinopril (Prinivil) 5 mg PEG DAILY [facility] Last Admin: 04/16/19 10:29 Dose: Not Given Metoprolol Tartrate (Lopressor -) 50 mg PEG Q6HPO [facility] Last Admin: 04/16/19 05:40 Dose: Not Given Metoprolol Tartrate (Lopressor Injection -) 5 mg IVPUSH Q4H PRN PRN Reason: HYPERTENSION Last Admin: 04/16/19 05:43 Dose: 5 mg Metoprolol Tartrate (Lopressor Injection -) 10 mg IVPUSH Q4H PRN PRN Reason: TACHYCARDIA Last Admin: 04/15/19 23:01 Dose: 10 mg Morphine Sulfate (Morphine Sulfate) 2 mg IVPUSH Q4H PRN PRN Reason: PAIN LEVEL 6-10 Last Admin: 04/16/19 08:15 Dose: 2 mg Ondansetron HCl (Zofran Injection) 4 mg IVPUSH Q6H PRN PRN Reason: NAUSEA AND/OR VOMITING Sodium Chloride (Normal Saline For Inhalation -) 3 ml IH Q6H PRN PRN Reason: COUGH Last Admin: 04/10/19 04:00 Dose: 3 ml - Objective Vital Signs: Vital Signs Temperature 98 F 04/16/19 14:30 Pulse Rate 120 H 04/16/19 14:45 Respiratory Rate 23 H 04/16/19 16:10 Blood Pressure 127/100 04/16/19 14:45 O2 Sat by Pulse Oximetry (%) 97 04/16/19 10:40 Constitutional: Yes: Mild Distress HENT: Yes: WNL Neck: Yes: WNL Cardiovascular: Yes: Tachycardia, S1 Respiratory: Yes: Other (Trach) Gastrointestinal: Yes: Soft (PEG) Edema: No Neurological: Yes: Alert Labs: CBC, BMP 04/16/19 05:30 04/16/19 05:30 INR, PTT INR 1.27 (0.83-1.09) H 04/16/19 05:30 Fibrinogen 295.0 mg/dL (238-498) 04/16/19 05:30 Assessment/Plan 83 year old male with a pmhx of prostate CA s/p radiation, CAD s/p CABG 05/2018, dm, htn, esrd, copd, and s/p Trach/vent/peg sent from halfway for coffee ground emesis. GIB. EKG: atach/flutter with VR 136bpm, NIVCD CT chest/abd/pelvis: Bilateral pleural effusions, consolidation, moderate to large ascites 4.6cm Throacic anuerysm had episode of vomiting and tachycardia 04/06/19. no evidence of obstruction. Evidence of ongoing GI bleeding. 1) CV -No intervention for TAA 4.6cm. BP control and beta filippo -Abx as per primary team. -he is in rapid atach/aflutter. -No AC given GI bleending -Continue rate control with Dilt and metoprolol -Heart rates may improve after PRBC Tx
[2019-04-16 17:42] LABS: HEMATOCRIT 27.9 % (35.4-49); HEMOGLOBIN 9.1 GM/dL (11.7-16.9); MCHC 32.8 g/dl (32.0-35.9); MEAN CELL VOLUME 91.5 fl (80-96); MEAN PLT VOLUME 8.6 fl (7.5-11.1); PLATELET COUNT 158 K/MM3 (134-434); RBC 3.05 M/mm3 (4.00-5.60); RDW 17.6 % (11.9-15.9); WHITE BLOOD COUNT 15.1 K/mm3 (4.0-10.0)
[2019-04-17] MEDS ORDERED: PIPERACILLIN/TAZOBACTAM 4.5 GM VIAL IVPB ONE ×2 (00:01→09:35)
[2019-04-17] MEDS ORDERED: DEXTROSE 5%-WATER 100 ML IVPB ONE ×2 (00:01→09:35)
[2019-04-17] MEDS: dilTIAZem HCL 30 MG TABLET (FP) NR SCH ×4 (00:11→17:36)
[2019-04-17] MEDS: METOPROLOL TARTRATE 50 MG TABLET (FP) PEG SCH ×4 (00:11→17:36)
[2019-04-17] MEDS: PIPERACILLIN/TAZOB 4.5 GM 4.5 GM in DEXTROSE 5%-WATER 100 ML IVPB SCH (01:06)
[2019-04-17] MEDS: MORPHINE SULFATE 2 MG/ML VIAL IVPUSH PRN (01:33)
[2019-04-17] MEDS: METOPROLOL TARTRATE 5 MG/5 ML VIAL IVPUSH PRN ×3 (02:04→21:52)
[2019-04-17] MEDS: INSULIN SLIDING SCALE (NOVOLOG) 1 VIAL SQ SCH ×4 (07:00→21:10)
[2019-04-17 07:28] LABS: BASO % 0.4 % (0-2.0); EOS % 1.9 % (0-4.5); HEMATOCRIT 28.8 % (35.4-49); HEMOGLOBIN 9.6 GM/dL (11.7-16.9); LYMPH % 4.5 % (8-40); MCH 30.2 pg (25.7-33.7); MCHC 33.2 g/dl (32.0-35.9); MEAN CELL VOLUME 91.1 fl (80-96); MONO % 3.4 % (3.8-10.2); NEUT % 89.8 % (42.8-82.8); PLATELET COUNT 167 K/MM3 (134-434); RBC 3.17 M/mm3 (4.00-5.60); RDW 17.5 % (11.9-15.9); WHITE BLOOD COUNT 15.1 K/mm3 (4.0-10.0)
--- NOTE | 2019-04-17 07:48 | PN ---
Progress Note (short form) - Note Progress Note: PULM/CCM Patient seen and examined in the ICU. CA+OX3, Resting comfortably trached on AC mode of vent. Hgb stable 9.1 --> 9.6 s/p repeat EGD yesterday. Pt is Tachycardic --> 140's but in NAD. Active Medications Dextrose/Lactated Ringer's (D5-Lr -) 1,000 mls @ 42 mls/hr IV ASDIR [facility] Last Admin: 04/16/19 14:00 Dose: 42 mls/hr Potassium Chloride (Potassium Chloride 10 Meq Premix Ivpb -) 10 meq in 100 mls @ 100 mls/hr IVPB Q60M [facility] Stop: 04/17/19 12:44 Vancomycin HCl 1,000 mg/ (Dextrose) 250 mls @ 200 mls/hr IVPB Q24H [facility]; Protocol Piperacillin Sod/Tazobactam (Sod 3.375 gm/ Dextrose) 50 mls @ 100 mls/hr IVPB Q8H-IV [facility]; Protocol Insulin Aspart (Novolog Vial Sliding Scale -) 1 vial SQ ACHS [facility]; Protocol Last Admin: 04/17/19 07:00 Dose: Not Given Lisinopril (Prinivil) 5 mg PEG DAILY [facility] Last Admin: 04/16/19 10:29 Dose: Not Given Metoprolol Tartrate (Lopressor -) 50 mg PEG Q6HPO [facility] Last Admin: 04/17/19 05:52 Dose: Not Given Metoprolol Tartrate (Lopressor Injection -) 5 mg IVPUSH Q4H PRN PRN Reason: HYPERTENSION Last Admin: 04/17/19 02:04 Dose: 5 mg Metoprolol Tartrate (Lopressor Injection -) 10 mg IVPUSH Q4H PRN PRN Reason: TACHYCARDIA Last Admin: 04/15/19 23:01 Dose: 10 mg Morphine Sulfate (Morphine Sulfate) 2 mg IVPUSH Q4H PRN PRN Reason: PAIN LEVEL 6-10 Last Admin: 04/17/19 01:33 Dose: 2 mg Ondansetron HCl (Zofran Injection) 4 mg IVPUSH Q6H PRN PRN Reason: NAUSEA AND/OR VOMITING Pantoprazole Sodium (Protonix Iv) 40 mg IVPUSH BID [facility] Sodium Chloride (Normal Saline For Inhalation -) 3 ml IH Q6H PRN PRN Reason: COUGH Last Admin: 04/10/19 04:00 Dose: 3 ml Vital Signs Period Temp Pulse Resp BP Sys/Kang Pulse Ox Last 24 Hr 97 F-98 F 88-142 8-27 95-141/57-102 97-100 Intake & Output 04/14/19 04/15/19 04/16/19 04/17/19 23:59 23:59 23:59 23:59 Intake Total 1936 2174 1650 Output Total 250 550 250 0 Balance 1686 1624 1400 0 Weight 97.25 kg 98.157 kg 98.883 kg Gen: vented, awake Heart: tachycardic, regular Lung: decreased breath sounds at the bases Abd: +BS, PEG, S/S N/T X4Q Ext: + edema CBC, BMP 04/17/19 06:00 04/17/19 06:00 Microbiology 04/13/19 13:50 Stool Clostridioides difficile Antigen - Final 04/13/19 13:50 Stool Clostridioides difficile Toxin Assay - Final 04/06/19 19:30 Blood - Peripheral Venous Blood Culture - Final NO GROWTH AFTER 5 DAYS INCUBATION 04/06/19 19:30 Blood - Peripheral Venous Blood Culture - Final NO GROWTH AFTER 5 DAYS INCUBATION 04/08/19 07:50 Sputum - Endotrachea Suction/Ventilator Gram Stain - Final 04/08/19 07:50 Sputum - Endotrachea Suction/Ventilator Sputum Culture - Final Pseudomonas Aeruginosa Mr S Aureus 04/02/19 14:54 Peritoneal Fluid Gram Stain - Final 04/02/19 14:54 Peritoneal Fluid Body Fluid Culture - Final NO GROWTH OF AEROBIC ORGANISMS AFTER 48 HOURS INCUBATION 04/02/19 14:54 Peritoneal Fluid Anaerobic Culture - Final NO ANAEROBES WERE ISOLATED 04/02/19 14:54 Peritoneal Fluid AFB Smear Concentration - Preliminary 04/02/19 14:54 Peritoneal Fluid Mycobacterial Culture - Preliminary 03/31/19 01:27 Blood - Peripheral Venous Blood Culture - Final NO GROWTH AFTER 5 DAYS INCUBATION 03/31/19 01:27 Blood - Peripheral Venous Blood Culture - Final NO GROWTH AFTER 5 DAYS INCUBATION 04/02/19 14:54 Peritoneal Fluid ROB Preparation - Preliminary 04/02/19 14:54 Peritoneal Fluid Fungal Culture - Preliminary 03/31/19 02:17 Urine - Urine Nephrostomy Tube Left Urine Culture - Final Klebsiella Pneumoniae - Esbl CXR 04/17: A single view of the chest is been submitted. Since the prior study of 04/16/2019 at 1313 hours the tracheostomy tube, previous mediastinal hardware and congestive changes are again noted. The bibasilar findings remain stable on the right and have increased on the left. The patient is rotated to the left. Correlation recommended CTAP 04/15: No evidence of active extravasation of contrast media into the GI tract as discussed above. Endovascular repair of the abdominal aorta as delineated above with occlusion of the MALIK. SMA and celiac are patent with extensive atherosclerotic changes as discussed above which was also noted in iliofemoral systems bilaterally. Moderate ascites. Atelectasis/infiltration present at the bases more prominent on the left with bilateral pleural effusions larger on the left as discussed above. Bilateral nephrostomy tubes with direct access into the renal pelvis bilaterally as discussed above. Probable renal cysts. Gastrostomy tube was discussed above. ASSESS: Atrial Flutter with RVR GI Bleed Acute Blood Loss Anemia Chronic Respiratory Failure UTI/Pneumonia/Sepsis Lactic Acidosis CAD s/p CABG COPD HTN Hyperlipidemia Ascites PLAN: - NPO - protonix - octreotide - monitor H/H - Normal transfusion thresholds - rate control - holding anticoagulation - ABX Per ID - DVT/GI prophylaxis - continue ICU monitoring for tenuous overall status - [facility] ICU PULM/[facility] [id number]
[2019-04-17 07:50] LABS: ALBUMIN 1.2 g/dl (3.4-5.0); BILIRUBIN,TOTAL 0.9 mg/dL (0.2-1); BLOOD UREA NITROGEN 37.2 mg/dL (7-18); CALCIUM 7.1 mg/dL (8.5-10.1); CREATININE 1.6 mg/dL (0.55-1.3); MAGNESIUM 1.8 mg/dL (1.8-2.4); PHOSPHOROUS 3.1 mg/dL (2.5-4.9); POTASSIUM 3.3 mmol/L (3.5-5.1); TOT PROT 5.6 g/dl (6.4-8.2)
[2019-04-17 08:03] LABS: INR 1.25 (0.83-1.09); PROTHROMBIN TIME (PATIENT) 14.8 SEC (9.7-13.0)
[2019-04-17 08:05] LABS: ACTIVATED PTT 36.1 SECONDS (25.2-36.5)
[2019-04-17] MEDS: PANTOPRAZOLE SODIUM 80 MG in SODIUM CHLORIDE 100 ML IVPB SCH (09:14)
--- NOTE | 2019-04-17 09:14 | PN ---
Progress Note, Physician Chief Complaint: AWAKE ALERT PATIENT IS TACHYCARDIC 140'S EVENTS AND NOTES REVIEWED EXAMINED WITH DR Jay Jay LI FROM [facility] - Current Medication List Current Medications: Active Medications Diltiazem HCl (Cardizem -) 30 mg NR Q6HPO [facility] Last Admin: 04/17/19 05:52 Dose: Not Given Piperacillin Sod/Tazobactam (Sod 4.5 gm/ Dextrose) 100 mls @ 200 mls/hr IVPB Q8H-IV [facility]; Protocol Last Admin: 04/17/19 01:06 Dose: 200 mls/hr Pantoprazole Sodium 80 mg/ (Sodium Chloride) 100 mls @ 10 mls/hr IVPB Q10H [facility] Last Admin: 04/16/19 21:51 Dose: 10 mls/hr Vancomycin HCl 1,250 mg/ (Dextrose) 250 mls @ 250 mls/2 hr IVPB DAILY [facility]; Protocol Last Admin: 04/16/19 13:45 Dose: 250 mls/2 hr Dextrose/Lactated Ringer's (D5-Lr -) 1,000 mls @ 42 mls/hr IV ASDIR [facility] Last Admin: 04/16/19 14:00 Dose: 42 mls/hr Octreotide Acetate 200 mcg/Octreotide Acetate 1,000 mcg/Dextrose 500 mls @ 20.833 mls/hr IVPB ASDIR [facility] Last Admin: 04/16/19 14:00 Dose: 20.833 mls/hr Insulin Aspart (Novolog Vial Sliding Scale -) 1 vial SQ ACHS [facility]; Protocol Last Admin: 04/16/19 22:05 Dose: Not Given Lisinopril (Prinivil) 5 mg PEG DAILY [facility] Last Admin: 04/16/19 10:29 Dose: Not Given Metoprolol Tartrate (Lopressor -) 50 mg PEG Q6HPO [facility] Last Admin: 04/17/19 05:52 Dose: Not Given Metoprolol Tartrate (Lopressor Injection -) 5 mg IVPUSH Q4H PRN PRN Reason: HYPERTENSION Last Admin: 04/17/19 02:04 Dose: 5 mg Metoprolol Tartrate (Lopressor Injection -) 10 mg IVPUSH Q4H PRN PRN Reason: TACHYCARDIA Last Admin: 04/15/19 23:01 Dose: 10 mg Morphine Sulfate (Morphine Sulfate) 2 mg IVPUSH Q4H PRN PRN Reason: PAIN LEVEL 6-10 Last Admin: 04/17/19 01:33 Dose: 2 mg Ondansetron HCl (Zofran Injection) 4 mg IVPUSH Q6H PRN PRN Reason: NAUSEA AND/OR VOMITING Sodium Chloride (Normal Saline For Inhalation -) 3 ml IH Q6H PRN PRN Reason: COUGH Last Admin: 04/10/19 04:00 Dose: 3 ml - Objective Vital Signs: Vital Signs Temperature 97 F L 04/17/19 09:00 Pulse Rate 142 H 04/17/19 09:00 Respiratory Rate 16 04/17/19 09:00 Blood Pressure 100/78 04/17/19 09:00 O2 Sat by Pulse Oximetry (%) 100 04/17/19 08:23 Constitutional: Yes: Mild Distress Neck: Yes: Other (TRACHEOSTOMY) Cardiovascular: Yes: Tachycardia Respiratory: Yes: Mechanically Ventilated Gastrointestinal: Yes: Soft, Ascites, Distention Genitourinary: Yes: Incontinence Edema: Yes Integumentary: Yes: Bruising, Erythema, Rash Wound/Incision: Yes: Open to air Neurological: Yes: Pre-Existing Deficit ...Motor Strength: LUE, LLE, RUE, RLE Psychiatric: Yes: Other Labs: CBC, BMP 04/17/19 06:00 04/17/19 06:00 INR, PTT INR 1.25 (0.83-1.09) H 04/17/19 06:00 Fibrinogen 295.0 mg/dL (238-498) 04/16/19 05:30 Problem List - Problems (1) Acute and chronic respiratory failure Code(s): J96.20 - ACUTE AND CHR RESP FAILURE, UNSP W HYPOXIA OR HYPERCAPNIA (2) Anemia Code(s): D64.9 - ANEMIA, UNSPECIFIED (3) COPD (chronic obstructive pulmonary disease) Code(s): J44.9 - CHRONIC OBSTRUCTIVE PULMONARY DISEASE, UNSPECIFIED (4) Coffee ground emesis Code(s): K92.0 - HEMATEMESIS (5) Diabetes mellitus Code(s): E11.9 - TYPE 2 DIABETES MELLITUS WITHOUT COMPLICATIONS (6) ESRD (end stage renal disease) Code(s): N18.6 - END STAGE RENAL DISEASE (7) GI bleed Code(s): K92.2 - GASTROINTESTINAL HEMORRHAGE, UNSPECIFIED (8) HLD (hyperlipidemia) Code(s): E78.5 - HYPERLIPIDEMIA, UNSPECIFIED (9) HTN (hypertension) Code(s): I10 - ESSENTIAL (PRIMARY) HYPERTENSION (10) Sepsis Code(s): A41.9 - SEPSIS, UNSPECIFIED ORGANISM (11) Status post tracheostomy Code(s): Z93.0 - TRACHEOSTOMY STATUS (12) Atrial flutter Code(s): I48.92 - UNSPECIFIED ATRIAL FLUTTER Assessment/Plan S/P EGD WITH DUEDENAL BULB BLEED DISCUSSED WITH GI DR LI ON PPI AND OCTREOTIDE TACHYCARDIA WORKUP IN PROGRESS, CHECKING EKG/ABG/CARDIAC ENZYMES MONITOR LABS, REPLETE KCL, TRANSFUSE NEEDED PRBC KEEP HEMOGLOBIN ABOVE 8. CARDIZEM AND TROPONIN IV FOR RATE CONTROL CAN ADD AMIODARONE VS DIGOXIN IF BLOOD PRESSURE IS TO LOW TRACHEOSOTMY ON VENT CHECKING ABG
[2019-04-17] MEDS ORDERED: KCL 10 MEQ IVPB 10 MEQ/100 ML INFUS.BAG IVPB SCH (09:30)
--- NOTE | 2019-04-17 09:32 | PN.GI ---
GI Progress Note Subjective: 1 dark BM overnight Hgb 9.6 this AM. No transfusions given - Objective Vital Signs: Vital Signs Temperature 97 F L 04/17/19 09:00 Pulse Rate 142 H 04/17/19 09:00 Respiratory Rate 16 04/17/19 09:00 Blood Pressure 100/78 04/17/19 09:00 O2 Sat by Pulse Oximetry (%) 100 04/17/19 08:23 Constitutional: Calm Eyes: No: Sclera Icterus Cardiovascular: Yes: Tachycardia Gastrointestinal Inspection: Yes: Distention ...Auscultate: Yes: Normoactive Bowel Sounds ...Palpate: Yes: Soft. No: Hepatomegaly, Splenomegaly, Tenderness ...Percussion: No: Tympanitic Edema: Yes Edema: LLE: Trace, RLE: Trace Neurological: Yes: Alert Labs: CBC, BMP 04/17/19 06:00 04/17/19 06:00 INR, PTT INR 1.25 (0.83-1.09) H 04/17/19 06:00 Fibrinogen 295.0 mg/dL (238-498) 04/16/19 05:30 Hepatic Panel Total Bilirubin 0.9 mg/dL (0.2-1) 04/17/19 06:00 AST 17 U/L (15-37) 04/17/19 06:00 ALT 15 U/L (13-61) 04/17/19 06:00 Alkaline Phosphatase 97 U/L (45-117) 04/17/19 06:00 Albumin 1.2 g/dl (3.4-5.0) L 04/17/19 06:00 Problem List - Problems (1) Melena Assessment/Plan: Repeat EGD yesterday failed to reveal an active bleeding source. There was clotted blood in the fundus of the stomach that was cleared, howeber no obvious bleeding source seen in proximal stomach. The duodenal bulb, in which active bleeding was seen during initial EGD, appeared normal. ? if diffuse mucosal oozing or intermittent dieulafoy bleed. Continue to monitor: CBC BID If no further bleeding today, resume tube feeds in AM Change PPI drip to 40mg IVPB BID Discontinue Octreotide Left messages yesterday to discuss EGD findings with Mr. Kilpatrick's daughter and son Code(s): K92.1 - MELENA
[2019-04-17] MEDS: KCL 10 MEQ IVPB 10 MEQ/100 ML INFUS.BAG IVPB SCH ×3 (09:50→12:32)
[2019-04-17] MEDS: dilTIAZem HCL 50 MG/10 ML - 10 ML VIAL IVPUSH PRN ×4 (09:53→21:59)
--- NOTE | 2019-04-17 09:56 | PN ---
Progress Note (short form) - Note Progress Note: remains tachycardic trach to vent repeat egd yesterday noted Vital Signs Period Temp Pulse Resp BP Sys/Kang Pulse Ox Last 24 Hr 97 F-98 F 88-142 8-27 95-141/57-102 97-100 cor-rrr lungs decreased bs at bases abd soft,nt +GT ext trace edema CBC, BMP 04/17/19 06:00 04/17/19 06:00 cxray dense retrocardiac area Laboratory Tests 04/16/19 13:30 Vancomycin Pre-Dose 18.1 Microbiology 04/13/19 13:50 Stool Clostridioides difficile Antigen - Final 04/13/19 13:50 Stool Clostridioides difficile Toxin Assay - Final 04/06/19 19:30 Blood - Peripheral Venous Blood Culture - Final NO GROWTH AFTER 5 DAYS INCUBATION 04/06/19 19:30 Blood - Peripheral Venous Blood Culture - Final NO GROWTH AFTER 5 DAYS INCUBATION 04/08/19 07:50 Sputum - Endotrachea Suction/Ventilator Gram Stain - Final 04/08/19 07:50 Sputum - Endotrachea Suction/Ventilator Sputum Culture - Final Pseudomonas Aeruginosa Mr S Aureus 04/02/19 14:54 Peritoneal Fluid Gram Stain - Final 04/02/19 14:54 Peritoneal Fluid Body Fluid Culture - Final NO GROWTH OF AEROBIC ORGANISMS AFTER 48 HOURS INCUBATION 04/02/19 14:54 Peritoneal Fluid Anaerobic Culture - Final NO ANAEROBES WERE ISOLATED 04/02/19 14:54 Peritoneal Fluid AFB Smear Concentration - Preliminary 04/02/19 14:54 Peritoneal Fluid Mycobacterial Culture - Preliminary 03/31/19 01:27 Blood - Peripheral Venous Blood Culture - Final NO GROWTH AFTER 5 DAYS INCUBATION 03/31/19 01:27 Blood - Peripheral Venous Blood Culture - Final NO GROWTH AFTER 5 DAYS INCUBATION 04/02/19 14:54 Peritoneal Fluid ROB Preparation - Preliminary 04/02/19 14:54 Peritoneal Fluid Fungal Culture - Preliminary 03/31/19 02:17 Urine - Urine Nephrostomy Tube Left Urine Culture - Final Klebsiella Pneumoniae - Esbl a/p GI bleed- per GI chronic respiratory failure ?aspiration pneumonia ?aspiration, 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
[2019-04-17] MEDS: LISINOPRIL 5 MG TABLET (FP) PEG SCH (10:13)
--- NOTE | 2019-04-17 10:29 | PN ---
Progress Note (short form) - Note Progress Note: remains tachycardic trach to vent repeat egd-- no active bleed AFVSS cor-rrr lungs decreased bs at bases abd soft,nt +GT ext trace edema labs/meds reviewed a/p GI bleed- per GI chronic respiratory failure ?aspiration pneumonia ?aspiration, colonized with resistant klebsiella (CRE) in urine worsening renal function Platelts/PT/PTT/fibrinogen-- within normal limits. Doubt DIC overall prognosis is poor
[2019-04-17] MEDS ORDERED: PIPERACILLIN/TAZOBACTAM 3.375 GM VIAL IVPB ONE ×3 (10:49→20:54)
[2019-04-17] MEDS ORDERED: DEXTROSE 5%-WATER - 50 ML IVPB ONE ×3 (10:49→20:55)
[2019-04-17] MEDS: PIPERACILLIN/TAZOB 3.375 GM 3.375 GM in DEXTROSE 5%-WATER - 50 ML IVPB SCH ×2 (10:50→17:36)
[2019-04-17] MEDS: PANTOPRAZOLE SODIUM 40 MG VIAL IVPUSH SCH ×2 (11:00→21:10)
[2019-04-17 12:02] LABS: ANISOCYTOSIS 1+; MACROCYTOSIS 1+; PLATELET ESTIMATE NORMAL
--- NOTE | 2019-04-17 13:28 | EKG ---
Test Reason : Blood Pressure : / mmHG Vent. Rate : 142 BPM Atrial Rate : 284 BPM P-R Int : 000 ms QRS Dur : 110 ms QT Int : 306 ms P-R-T Axes : 000 -55 163 degrees QTc Int : 470 ms ATRIAL FLUTTER WITH VARIABLE A-V BLOCK WITH PREMATURE VENTRICULAR OR ABERRANTLY CONDUCTED COMPLEXES LEFT AXIS DEVIATION POSSIBLE ANTERIOR INFARCT , AGE UNDETERMINED ABNORMAL ECG WHEN COMPARED WITH ECG OF 12-APR-2019 20:26, NO SIGNIFICANT CHANGE WAS FOUND Confirmed by MD BAMBI, PHU ([id number]) on 04/17/2019 1:28:39 PM Referred By: Rey SOTELO Confirmed By:PHU LACY MD
[2019-04-17] MEDS ORDERED: VANCOMYCIN 1 GRAM (PRE-DOCKED) 1,000 MG/250 ML BAG IVPB SCH (13:30)
[2019-04-17] MEDS: DEXTROSE 5%-LACTATED RINGERS 1,000 ML IV SCH (17:36)
--- NOTE | 2019-04-17 19:12 | PN ---
Progress Note, Physician Chief Complaint: The patient is awake and alert, ventilated through trach. No acute distress. Tele shows atrial flutter with variable AV block, VR around 100 bpm. History of Present Illness: 83 year old male with a PMHx of HTN, DM, CAD s/p CABG 05/2018, ESRD, COPD, prostate cancer, s/p radiation, and s/p trach/vent/peg admitted from shelter for coffee ground emesis. EGD 04/16/19 showed no source of active bleeding. But clotted blood seen in fundus. EKG: atach/flutter with VR 136bpm, NIVCD CT chest/abd/pelvis: Bilateral pleural effusions, consolidation, moderate to large ascites 4.6cm Throacic anuerysm - Current Medication List Current Medications: Active Medications Diltiazem HCl (Cardizem -) 30 mg NR Q6HPO [facility] Last Admin: 04/17/19 17:36 Dose: Not Given Diltiazem HCl (Cardizem Injection -) 5 mg IVPUSH Q4H PRN PRN Reason: TACHYCARDIA Last Admin: 04/17/19 18:52 Dose: 5 mg Dextrose/Lactated Ringer's (D5-Lr -) 1,000 mls @ 42 mls/hr IV ASDIR [facility] Last Admin: 04/17/19 17:36 Dose: 42 mls/hr Vancomycin HCl (Vancomycin (Pre-Docked)) 1,000 mg in 250 mls @ 166.667 mls/hr IVPB Q24H [facility]; Protocol Last Admin: 04/17/19 14:11 Dose: Not Given Piperacillin Sod/Tazobactam (Sod 3.375 gm/ Dextrose) 50 mls @ 100 mls/hr IVPB Q8H-IV [facility]; Protocol Last Admin: 04/17/19 17:36 Dose: 100 mls/hr Insulin Aspart (Novolog Vial Sliding Scale -) 1 vial SQ ACHS [facility]; Protocol Last Admin: 04/17/19 17:06 Dose: Not Given Lisinopril (Prinivil) 5 mg PEG DAILY [facility] Last Admin: 04/17/19 10:13 Dose: Not Given Metoprolol Tartrate (Lopressor -) 50 mg PEG Q6HPO [facility] Last Admin: 04/17/19 17:36 Dose: Not Given Metoprolol Tartrate (Lopressor Injection -) 5 mg IVPUSH Q4H PRN PRN Reason: HYPERTENSION Last Admin: 04/17/19 15:38 Dose: 5 mg Metoprolol Tartrate (Lopressor Injection -) 10 mg IVPUSH Q4H PRN PRN Reason: TACHYCARDIA Last Admin: 04/15/19 23:01 Dose: 10 mg Ondansetron HCl (Zofran Injection) 4 mg IVPUSH Q6H PRN PRN Reason: NAUSEA AND/OR VOMITING Pantoprazole Sodium (Protonix Iv) 40 mg IVPUSH BID [facility] Last Admin: 04/17/19 11:00 Dose: 40 mg Sodium Chloride (Normal Saline For Inhalation -) 3 ml IH Q6H PRN PRN Reason: COUGH Last Admin: 04/10/19 04:00 Dose: 3 ml - Objective Vital Signs: Vital Signs Temperature 98.4 F 04/17/19 17:00 Pulse Rate 118 H 04/17/19 18:59 Respiratory Rate 22 H 04/17/19 18:59 Blood Pressure 109/97 04/17/19 18:59 O2 Sat by Pulse Oximetry (%) 100 04/17/19 11:00 General: Well developed. Chronic ill and frail. No acute distress. Head: Normocephalic. Atraumatic, Eyes: PERRLA, EOMI. Sclerae anicteric. Conjunctivae clear. Neck: Trach in place. Heart: Normal S1, S2: Irregular rhythm and rate. Lungs: Symmetrical coarse BS with rhonchi. Abdomen: Soft. Bowel sound positive. Non tender. No masses. Extremities: + edema. No clubbing or cyanosis. PD 2+, equal bilaterally. Labs: CBC, BMP 04/17/19 06:00 04/17/19 06:00 INR, PTT INR 1.25 (0.83-1.09) H 04/17/19 06:00 Fibrinogen 295.0 mg/dL (238-498) 04/16/19 05:30 Assessment/Plan 83 year old male with a PMHx of HTN, DM, CAD s/p CABG 05/2018, ESRD, COPD, prostate cancer, s/p radiation, and s/p trach/vent/peg admitted from shelter for coffee ground emesis. EGD 04/16/19 showed no source of active bleeding. But clotted blood seen in fundus. EKG: atach/flutter with VR 136bpm, NIVCD CT chest/abd/pelvis: Bilateral pleural effusions, consolidation, moderate to large ascites 4.6cm Throacic anuerysm 1) Atrial flutter with variable AV block: VR control improving. -Add digoxin 0.125 mg every other day. First dose 0.25 mg today. -No AC given GI bleending 2) No intervention for TAA 4.6cm. BP control and beta filippo 3) Abx as per primary team.
[2019-04-18] MEDS: dilTIAZem HCL 30 MG TABLET (FP) NR SCH ×4 (00:11→17:11)
[2019-04-18] MEDS: METOPROLOL TARTRATE 50 MG TABLET (FP) PEG SCH ×4 (00:11→17:11)
[2019-04-18] MEDS ORDERED: PIPERACILLIN/TAZOBACTAM 3.375 GM VIAL IVPB ONE ×3 (02:32→16:43)
[2019-04-18] MEDS ORDERED: DEXTROSE 5%-WATER - 50 ML IVPB ONE ×3 (02:33→16:43)
[2019-04-18] MEDS: dilTIAZem HCL 50 MG/10 ML - 10 ML VIAL IVPUSH PRN ×2 (02:36→11:35)
[2019-04-18] MEDS: PIPERACILLIN/TAZOB 3.375 GM 3.375 GM in DEXTROSE 5%-WATER - 50 ML IVPB SCH ×3 (02:46→17:10)
[2019-04-18] MEDS: METOPROLOL TARTRATE 5 MG/5 ML VIAL IVPUSH PRN (03:42)
[2019-04-18] MEDS: INSULIN SLIDING SCALE (NOVOLOG) 1 VIAL SQ SCH ×4 (06:01→22:46)
[2019-04-18 06:08] LABS: HEMATOCRIT 27.9 % (35.4-49); HEMOGLOBIN 9.2 GM/dL (11.7-16.9); MCH 30.1 pg (25.7-33.7); MEAN CELL VOLUME 91.1 fl (80-96); MEAN PLT VOLUME 8.8 fl (7.5-11.1); PLATELET COUNT 164 K/MM3 (134-434); RBC 3.06 M/mm3 (4.00-5.60); RDW 18.3 % (11.9-15.9); WHITE BLOOD COUNT 23.7 K/mm3 (4.0-10.0)
[2019-04-18 06:18] LABS: INR 1.43 (0.83-1.09); PROTHROMBIN TIME (PATIENT) 16.9 SEC (9.7-13.0)
[2019-04-18 06:19] LABS: BLOOD UREA NITROGEN 35.3 mg/dL (7-18); CALCIUM 7.2 mg/dL (8.5-10.1); CREATININE 1.6 mg/dL (0.55-1.3); MAGNESIUM 1.7 mg/dL (1.8-2.4); PHOSPHOROUS 2.9 mg/dL (2.5-4.9); POTASSIUM 3.3 mmol/L (3.5-5.1)
--- NOTE | 2019-04-18 09:17 | PN ---
Progress Note (short form) - Note Progress Note: tachycardic improved Vital Signs Period Temp Pulse Resp BP Sys/Kang Pulse Ox Last 24 Hr 96.8 F-98.4 F 94-144 14-30 90-130/59-97 99-100 cor-rrr lungs decreased bs at bases abd soft,nt ext +edema, +ecchymosis, +skin tears CBC, BMP 04/18/19 05:20 04/18/19 05:20 Microbiology 04/13/19 13:50 Stool Clostridioides difficile Antigen - Final 04/13/19 13:50 Stool Clostridioides difficile Toxin Assay - Final 04/06/19 19:30 Blood - Peripheral Venous Blood Culture - Final NO GROWTH AFTER 5 DAYS INCUBATION 04/06/19 19:30 Blood - Peripheral Venous Blood Culture - Final NO GROWTH AFTER 5 DAYS INCUBATION 04/08/19 07:50 Sputum - Endotrachea Suction/Ventilator Gram Stain - Final 04/08/19 07:50 Sputum - Endotrachea Suction/Ventilator Sputum Culture - Final Pseudomonas Aeruginosa Mr S Aureus 04/02/19 14:54 Peritoneal Fluid Gram Stain - Final 04/02/19 14:54 Peritoneal Fluid Body Fluid Culture - Final NO GROWTH OF AEROBIC ORGANISMS AFTER 48 HOURS INCUBATION 04/02/19 14:54 Peritoneal Fluid Anaerobic Culture - Final NO ANAEROBES WERE ISOLATED 04/02/19 14:54 Peritoneal Fluid AFB Smear Concentration - Preliminary 04/02/19 14:54 Peritoneal Fluid Mycobacterial Culture - Preliminary 03/31/19 01:27 Blood - Peripheral Venous Blood Culture - Final NO GROWTH AFTER 5 DAYS INCUBATION 03/31/19 01:27 Blood - Peripheral Venous Blood Culture - Final NO GROWTH AFTER 5 DAYS INCUBATION 04/02/19 14:54 Peritoneal Fluid ROB Preparation - Preliminary 04/02/19 14:54 Peritoneal Fluid Fungal Culture - Preliminary 03/31/19 02:17 Urine - Urine Nephrostomy Tube Left Urine Culture - Final Klebsiella Pneumoniae - Esbl vanco trough 25 a/p GI bleed- per GI chronic respiratory failure ?aspiration pneumonia ?aspiration, colonized with resistant klebsiella (CRE) in urine has completed 7 days of gentamicin - now off hold vanco, check trough in am continue zosyn contact isolation for CRE overall prognosis is poor
--- NOTE | 2019-04-18 09:25 | PN.GI ---
GI Progress Note Subjective: No acute events No BM overnight Patient awake, denies abdominal pain - Objective Vital Signs: Vital Signs Temperature 98 F 04/18/19 04:00 Pulse Rate 106 H 04/18/19 08:15 Respiratory Rate 20 04/18/19 08:15 Blood Pressure 106/61 04/18/19 08:00 O2 Sat by Pulse Oximetry (%) 100 04/18/19 08:15 Constitutional: Calm Eyes: No: Sclera Icterus Cardiovascular: Yes: Tachycardia Respiratory: Yes: Diminished Gastrointestinal Inspection: Yes: Distention ...Auscultate: Yes: Normoactive Bowel Sounds ...Palpate: Yes: Soft. No: Tenderness Edema: Yes Labs: CBC, BMP 04/18/19 05:20 04/18/19 05:20 INR, PTT INR 1.43 (0.83-1.09) H 04/18/19 05:20 Fibrinogen 295.0 mg/dL (238-498) 04/16/19 05:30 Problem List - Problems (1) Melena Assessment/Plan: No further overt bleeding Octreotide has been discontinued Protonix 40mg IVPB BID Correction of lytes per PMD Monitor H/H and for signs of overt bleeding Resume tube feeds Code(s): K92.1 - MELENA
[2019-04-18] MEDS: PANTOPRAZOLE SODIUM 40 MG VIAL IVPUSH SCH (09:33)
[2019-04-18] MEDS: LISINOPRIL 5 MG TABLET (FP) PEG SCH ×2 (09:35→11:14)
--- NOTE | 2019-04-18 09:43 | PN ---
Progress Note, Physician Chief Complaint: AWAKE ALERT EVENTS REVIEWED - Current Medication List Current Medications: Active Medications Diltiazem HCl (Cardizem -) 30 mg NR Q6HPO [facility] Last Admin: 04/18/19 05:36 Dose: Not Given Diltiazem HCl (Cardizem Injection -) 5 mg IVPUSH Q4H PRN PRN Reason: TACHYCARDIA Last Admin: 04/18/19 02:36 Dose: 5 mg Escitalopram Oxalate (Lexapro -) 20 mg PO DAILY [facility] Ferrous Sulfate (Feosol) 300 mg GT BID [facility] Finasteride (Proscar -) 5 mg PO DAILY [facility] Dextrose/Lactated Ringer's (D5-Lr -) 1,000 mls @ 42 mls/hr IV ASDIR [facility] Last Admin: 04/17/19 17:36 Dose: 42 mls/hr Piperacillin Sod/Tazobactam (Sod 3.375 gm/ Dextrose) 50 mls @ 100 mls/hr IVPB Q8H-IV [facility]; Protocol Last Admin: 04/18/19 09:33 Dose: 100 mls/hr Insulin Aspart (Novolog Vial Sliding Scale -) 1 vial SQ ACHS [facility]; Protocol Last Admin: 04/18/19 06:01 Dose: Not Given Lisinopril (Prinivil) 5 mg PEG DAILY [facility] Last Admin: 04/18/19 09:35 Dose: Not Given Metoprolol Tartrate (Lopressor -) 50 mg PEG Q6HPO [facility] Last Admin: 04/18/19 05:36 Dose: Not Given Metoprolol Tartrate (Lopressor Injection -) 5 mg IVPUSH Q4H PRN PRN Reason: HYPERTENSION Last Admin: 04/18/19 03:42 Dose: 5 mg Metoprolol Tartrate (Lopressor Injection -) 10 mg IVPUSH Q4H PRN PRN Reason: TACHYCARDIA Last Admin: 04/15/19 23:01 Dose: 10 mg Ondansetron HCl (Zofran Injection) 4 mg IVPUSH Q6H PRN PRN Reason: NAUSEA AND/OR VOMITING Pantoprazole Sodium (Protonix Iv) 40 mg IVPUSH BID [facility] Last Admin: 04/18/19 09:33 Dose: 40 mg Pantoprazole Sodium (Protonix -) 40 mg PO BID [facility] Sodium Chloride (Normal Saline For Inhalation -) 3 ml IH Q6H PRN PRN Reason: COUGH Last Admin: 04/10/19 04:00 Dose: 3 ml - Objective Vital Signs: Vital Signs Temperature 98 F 04/18/19 04:00 Pulse Rate 106 H 04/18/19 08:15 Respiratory Rate 20 04/18/19 08:15 Blood Pressure 106/61 04/18/19 08:00 O2 Sat by Pulse Oximetry (%) 100 04/18/19 08:15 Constitutional: Yes: Mild Distress HENT: Yes: Other (TRACHEOSTOMY) Cardiovascular: Yes: Tachycardia, Pulse Irregular Respiratory: Yes: Mechanically Ventilated Gastrointestinal: Yes: Soft, Other (PEG PLACED) Genitourinary: Yes: Incontinence Musculoskeletal: Yes: Muscle Weakness Edema: Yes Neurological: Yes: Pre-Existing Deficit ...Motor Strength: LLE, RLE Psychiatric: Yes: Other Labs: CBC, BMP 04/18/19 05:20 04/18/19 05:20 INR, PTT INR 1.43 (0.83-1.09) H 04/18/19 05:20 Fibrinogen 295.0 mg/dL (238-498) 04/16/19 05:30 Problem List - Problems (1) Acute and chronic respiratory failure Code(s): J96.20 - ACUTE AND CHR RESP FAILURE, UNSP W HYPOXIA OR HYPERCAPNIA (2) Anemia Code(s): D64.9 - ANEMIA, UNSPECIFIED (3) COPD (chronic obstructive pulmonary disease) Code(s): J44.9 - CHRONIC OBSTRUCTIVE PULMONARY DISEASE, UNSPECIFIED (4) Coffee ground emesis Code(s): K92.0 - HEMATEMESIS (5) Diabetes mellitus Code(s): E11.9 - TYPE 2 DIABETES MELLITUS WITHOUT COMPLICATIONS (6) ESRD (end stage renal disease) Code(s): N18.6 - END STAGE RENAL DISEASE (7) GI bleed Code(s): K92.2 - GASTROINTESTINAL HEMORRHAGE, UNSPECIFIED (8) HLD (hyperlipidemia) Code(s): E78.5 - HYPERLIPIDEMIA, UNSPECIFIED (9) HTN (hypertension) Code(s): I10 - ESSENTIAL (PRIMARY) HYPERTENSION (10) Sepsis Code(s): A41.9 - SEPSIS, UNSPECIFIED ORGANISM (11) Status post tracheostomy Code(s): Z93.0 - TRACHEOSTOMY STATUS (12) Atrial flutter Code(s): I48.92 - UNSPECIFIED ATRIAL FLUTTER Assessment/Plan PEG FUNCTIONING TUBE FEEDS RESTARTED MEDS CHANGED TO PEG IV ABX PRESSURE SUPPORT VENT SUPPORT VIA TRACHEOSTOMY LABS REVIEWED KCL REPLETED CARDIZEM/LOPRESSOR PEG FOR RATE CONTROL
[2019-04-18] MEDS ORDERED: POTASSIUM CHLORIDE ORAL LIQUID 20 MEQ/15 ML PO ONE (10:30)
[2019-04-18] MEDS: FINASTERIDE 5 MG TABLET (FP) PO SCH (11:14)
[2019-04-18] MEDS: FERROUS SO4 300 MG/5 ML ORAL SOLN UNIT DOSE CUPS GT SCH ×2 (11:14→21:12)
[2019-04-18] MEDS: ESCITALOPRAM OXALATE 20 MG TABLET PO SCH (11:15)
[2019-04-18] MEDS: PANTOPRAZOLE 40 MG TABLET PO SCH ×2 (11:15→21:11)
--- NOTE | 2019-04-18 12:31 | PN ---
Progress Note (short form) - Note Progress Note: Progress Note Pulm/CCM I saw and examined the pt in the ICU. Awake and responsive , comfortable, no c/ o pain. No melena as yet today. Hgb stable. Tachycardia improved with cardizem. Tube feeds restarted. Active Medications Active Medications Amino Acids (Prosource No Carb Liquid Pkt) 30 ml GT BID@0800,1730 [facility] Diltiazem HCl (Cardizem -) 30 mg NR Q6HPO [facility] Last Admin: 04/18/19 11:14 Dose: 30 mg Diltiazem HCl (Cardizem Injection -) 5 mg IVPUSH Q4H PRN PRN Reason: TACHYCARDIA Last Admin: 04/18/19 11:35 Dose: 5 mg Escitalopram Oxalate (Lexapro -) 20 mg PO DAILY [facility] Last Admin: 04/18/19 11:15 Dose: 20 mg Ferrous Sulfate (Feosol) 300 mg GT BID [facility] Last Admin: 04/18/19 11:14 Dose: 300 mg Finasteride (Proscar -) 5 mg PO DAILY [facility] Last Admin: 04/18/19 11:14 Dose: 5 mg Dextrose/Lactated Ringer's (D5-Lr -) 1,000 mls @ 42 mls/hr IV ASDIR [facility] Last Admin: 04/17/19 17:36 Dose: 42 mls/hr Piperacillin Sod/Tazobactam (Sod 3.375 gm/ Dextrose) 50 mls @ 100 mls/hr IVPB Q8H-IV [facility]; Protocol Last Admin: 04/18/19 09:33 Dose: 100 mls/hr Insulin Aspart (Novolog Vial Sliding Scale -) 1 vial SQ ACHS [facility]; Protocol Last Admin: 04/18/19 12:00 Dose: Not Given Lisinopril (Prinivil) 5 mg PEG DAILY [facility] Last Admin: 04/18/19 11:14 Dose: 5 mg Metoprolol Tartrate (Lopressor -) 50 mg PEG Q6HPO [facility] Last Admin: 04/18/19 11:15 Dose: 50 mg Metoprolol Tartrate (Lopressor Injection -) 5 mg IVPUSH Q4H PRN PRN Reason: HYPERTENSION Last Admin: 04/18/19 03:42 Dose: 5 mg Metoprolol Tartrate (Lopressor Injection -) 10 mg IVPUSH Q4H PRN PRN Reason: TACHYCARDIA Last Admin: 04/15/19 23:01 Dose: 10 mg Ondansetron HCl (Zofran Injection) 4 mg IVPUSH Q6H PRN PRN Reason: NAUSEA AND/OR VOMITING Pantoprazole Sodium (Protonix -) 40 mg PO BID [facility] Last Admin: 04/18/19 11:15 Dose: Not Given Potassium Chloride (Potassium Chloride Oral Liquid) 20 meq PO DAILY [facility] Sodium Chloride (Normal Saline For Inhalation -) 3 ml IH Q6H PRN PRN Reason: COUGH Last Admin: 04/10/19 04:00 Dose: 3 ml Vital Signs Period Temp Pulse Resp BP Sys/Kang Pulse Ox Last 24 Hr 97 F-98 F 88-142 8-27 95-141/57-102 97-100 Intake & Output 04/14/19 04/15/19 04/16/19 04/17/19 23:59 23:59 23:59 23:59 Intake Total 1936 2174 1650 Output Total 250 550 250 0 Balance 1686 1624 1400 0 Weight 97.25 kg 98.157 kg 98.883 kg Gen: vented, awake Heart: tachycardic, regular Lung: decreased breath sounds at the bases Abd: +BS, PEG, S/S N/T X4Q Ext: + edema, weeping, ecchymoses and skin tears : Nephrostomy tube to bag drainage intact Vital Signs Period Temp Pulse Resp BP Sys/Kang Pulse Ox Last 24 Hr 97.4 F-98.4 F 94-144 14-30 90-130/59-97 99-100 Intake & Output 04/15/19 04/16/19 04/17/19 04/18/19 23:59 23:59 23:59 23:59 Intake Total 2174 1650 1028 344 Output Total 550 250 400 300 Balance 1624 1400 628 44 Weight 98.157 kg 98.883 kg 98.883 kg CBC, BMP 04/18/19 05:20 04/18/19 05:20 Microbiology 04/13/19 13:50 Stool Clostridioides difficile Antigen - Final 04/13/19 13:50 Stool Clostridioides difficile Toxin Assay - Final 04/06/19 19:30 Blood - Peripheral Venous Blood Culture - Final NO GROWTH AFTER 5 DAYS INCUBATION 04/06/19 19:30 Blood - Peripheral Venous Blood Culture - Final NO GROWTH AFTER 5 DAYS INCUBATION 04/08/19 07:50 Sputum - Endotrachea Suction/Ventilator Gram Stain - Final 04/08/19 07:50 Sputum - Endotrachea Suction/Ventilator Sputum Culture - Final Pseudomonas Aeruginosa Mr S Aureus 04/02/19 14:54 Peritoneal Fluid Gram Stain - Final 04/02/19 14:54 Peritoneal Fluid Body Fluid Culture - Final NO GROWTH OF AEROBIC ORGANISMS AFTER 48 HOURS INCUBATION 04/02/19 14:54 Peritoneal Fluid Anaerobic Culture - Final NO ANAEROBES WERE ISOLATED 04/02/19 14:54 Peritoneal Fluid AFB Smear Concentration - Preliminary 04/02/19 14:54 Peritoneal Fluid Mycobacterial Culture - Preliminary 03/31/19 01:27 Blood - Peripheral Venous Blood Culture - Final NO GROWTH AFTER 5 DAYS INCUBATION 03/31/19 01:27 Blood - Peripheral Venous Blood Culture - Final NO GROWTH AFTER 5 DAYS INCUBATION 04/02/19 14:54 Peritoneal Fluid ROB Preparation - Preliminary 04/02/19 14:54 Peritoneal Fluid Fungal Culture - Preliminary 03/31/19 02:17 Urine - Urine Nephrostomy Tube Left Urine Culture - Final Klebsiella Pneumoniae - Esbl CXR 04/17: A single view of the chest is been submitted. Since the prior study of 04/16/2019 at 1313 hours the tracheostomy tube, previous mediastinal hardware and congestive changes are again noted. The bibasilar findings remain stable on the right and have increased on the left. The patient is rotated to the left. Correlation recommended CTAP 04/15: No evidence of active extravasation of contrast media into the GI tract as discussed above. Endovascular repair of the abdominal aorta as delineated above with occlusion of the MALIK. SMA and celiac are patent with extensive atherosclerotic changes as discussed above which was also noted in iliofemoral systems bilaterally. Moderate ascites. Atelectasis/infiltration present at the bases more prominent on the left with bilateral pleural effusions larger on the left as discussed above. Bilateral nephrostomy tubes with direct access into the renal pelvis bilaterally as discussed above. Probable renal cysts. Gastrostomy tube was discussed above. ASSESS: Atrial Flutter with RVR GI Bleed Acute Blood Loss Anemia Chronic Respiratory Failure UTI/Pneumonia/Sepsis Lactic Acidosis CAD s/p CABG COPD HTN Hyperlipidemia Ascites PLAN: - Restart tube feeds - Cont protonix - monitor H/H - Normal transfusion thresholds - rate control with Cardizem - holding anticoagulation - ABX Per ID - DVT/GI prophylaxis - continue ICU monitoring for tenuous overall status - DNR Gauri Delgado, ACNP-BC PULM/CCM Additional CC's: Agustin Castro
[2019-04-18] MEDS: DEXTROSE 5%-LACTATED RINGERS 1,000 ML IV SCH (17:10)
[2019-04-18] MEDS: AMINO ACIDS/PROTEIN HYDROLYS 30 ML LIQUID.PKT GT SCH (17:12)
[2019-04-18] MEDS ORDERED: ARTIFICIAL TEARS (POLYVINYL ALCOHOL) OPTH DROPS OU STA (18:46)
[2019-04-18] MEDS ORDERED: PT OWN MED DRAWER 7, Y5N ONE (20:21)
[2019-04-18] MEDS: ARTIFICIAL TEARS (POLYVINYL ALCOHOL) OPTH DROPS OU SCH (21:12)
[2019-04-19] MEDS: dilTIAZem HCL 30 MG TABLET (FP) NR SCH ×2 (00:15→06:45)
[2019-04-19] MEDS: METOPROLOL TARTRATE 50 MG TABLET (FP) PEG SCH ×4 (00:55→17:12)
[2019-04-19] MEDS ORDERED: DEXTROSE 5%-WATER - 50 ML IVPB ONE ×3 (02:00→16:41)
[2019-04-19] MEDS ORDERED: PIPERACILLIN/TAZOBACTAM 3.375 GM VIAL IVPB ONE ×3 (02:00→16:41)
[2019-04-19] MEDS: PIPERACILLIN/TAZOB 3.375 GM 3.375 GM in DEXTROSE 5%-WATER - 50 ML IVPB SCH ×3 (02:11→17:00)
[2019-04-19] MEDS: INSULIN SLIDING SCALE (NOVOLOG) 1 VIAL SQ SCH ×4 (06:46→21:56)
[2019-04-19 08:05] LABS: BASO % 0.3 % (0-2.0); EOS % 1.4 % (0-4.5); HEMATOCRIT 27.8 % (35.4-49); LYMPH % 3.3 % (8-40); MCH 30.1 pg (25.7-33.7); MCHC 32.3 g/dl (32.0-35.9); MEAN CELL VOLUME 93.3 fl (80-96); MEAN PLT VOLUME 9.2 fl (7.5-11.1); MONO % 4.4 % (3.8-10.2); NEUT % 90.6 % (42.8-82.8); PLATELET COUNT 169 K/MM3 (134-434); RBC 2.98 M/mm3 (4.00-5.60); RDW 18.5 % (11.9-15.9); WHITE BLOOD COUNT 17.9 K/mm3 (4.0-10.0)
[2019-04-19] MEDS ORDERED: PT OWN MED DRAWER 7, Y5N ONE ×4 (08:27→23:28)
[2019-04-19 08:34] LABS: ALBUMIN 1.2 g/dl (3.4-5.0); BILIRUBIN,TOTAL 0.7 mg/dL (0.2-1); BLOOD UREA NITROGEN 36.5 mg/dL (7-18); CALCIUM 7.4 mg/dL (8.5-10.1); CREATININE 1.7 mg/dL (0.55-1.3); MAGNESIUM 1.8 mg/dL (1.8-2.4); POTASSIUM 3.5 mmol/L (3.5-5.1)
[2019-04-19] MEDS: AMINO ACIDS/PROTEIN HYDROLYS 30 ML LIQUID.PKT GT SCH ×2 (08:35→16:51)
[2019-04-19] MEDS: ARTIFICIAL TEARS (POLYVINYL ALCOHOL) OPTH DROPS OU SCH ×4 (09:00→21:56)
[2019-04-19] MEDS: ESCITALOPRAM OXALATE 20 MG TABLET PO SCH (09:01)
[2019-04-19] MEDS: FINASTERIDE 5 MG TABLET (FP) PO SCH (09:01)
[2019-04-19] MEDS: POTASSIUM CHLORIDE ORAL LIQUID 20 MEQ/15 ML PO SCH (09:01)
[2019-04-19] MEDS: LISINOPRIL 5 MG TABLET (FP) PEG SCH (09:01)
[2019-04-19] MEDS: PANTOPRAZOLE SODIUM 40 MG VIAL IVPUSH SCH ×2 (09:01→21:56)
[2019-04-19] MEDS: FERROUS SO4 300 MG/5 ML ORAL SOLN UNIT DOSE CUPS GT SCH ×2 (09:26→21:56)
--- NOTE | 2019-04-19 09:40 | PN ---
Progress Note, MANAGER ANIMAL - Note Progress Note: Selected Entries 04/19/19 04/19/19 04/19/19 02:00 04:00 06:00 Breakfast Temperature 97.4 F L 97.2 F L 97.4 F L 04/19/19 08:00 Breakfast NPO Temperature 97.4 F L Laboratory Tests 04/17/19 04/18/19 04/19/19 06:00 05:20 07:30 WBC 15.1 H 23.7 H 17.9 H EGD 04/16/19 showed no source of active bleeding. But clotted blood seen in fundus. CT chest/abd/pelvis: Bilateral pleural effusions, consolidation, moderate to large ascites 4.6cm Throacic anuerysm
[2019-04-19] MEDS ORDERED: DEXTROSE 5%-LACTATED RINGERS 1,000 ML IV SCH (10:47)
--- NOTE | 2019-04-19 10:57 | PN ---
Progress Note (short form) - Note Progress Note: Last BM last evening, dark brown. Tolerating TF's. Still with mild tachycardia, no change. Abd with PEG in place, thickened abd wall but no tenderness. Hgb stable (9.2 g/dl yesterday; 9.0 today). No evidence for rebleeding and doing well with TF's off of Octreotide and on oral PPI Continue with current plans.
--- NOTE | 2019-04-19 11:14 | PN ---
Progress Note (short form) - Note Progress Note: alert trach to vent Vital Signs Period Temp Pulse Resp BP Sys/Kang Pulse Ox Last 24 Hr 97.2 F-97.9 F 72-107 12-30 95-106/54-71 98-98 cor-rrr lungs decreased bs at bases abd soft,nt ext +edema, skin tears, ecchymosis CBC, BMP 04/19/19 07:30 04/19/19 07:30 Microbiology 04/13/19 13:50 Stool Clostridioides difficile Antigen - Final 04/13/19 13:50 Stool Clostridioides difficile Toxin Assay - Final 04/06/19 19:30 Blood - Peripheral Venous Blood Culture - Final NO GROWTH AFTER 5 DAYS INCUBATION 04/06/19 19:30 Blood - Peripheral Venous Blood Culture - Final NO GROWTH AFTER 5 DAYS INCUBATION 04/08/19 07:50 Sputum - Endotrachea Suction/Ventilator Gram Stain - Final 04/08/19 07:50 Sputum - Endotrachea Suction/Ventilator Sputum Culture - Final Pseudomonas Aeruginosa Mr S Aureus 04/02/19 14:54 Peritoneal Fluid Gram Stain - Final 04/02/19 14:54 Peritoneal Fluid Body Fluid Culture - Final NO GROWTH OF AEROBIC ORGANISMS AFTER 48 HOURS INCUBATION 04/02/19 14:54 Peritoneal Fluid Anaerobic Culture - Final NO ANAEROBES WERE ISOLATED 04/02/19 14:54 Peritoneal Fluid AFB Smear Concentration - Preliminary 04/02/19 14:54 Peritoneal Fluid Mycobacterial Culture - Preliminary 03/31/19 01:27 Blood - Peripheral Venous Blood Culture - Final NO GROWTH AFTER 5 DAYS INCUBATION 03/31/19 01:27 Blood - Peripheral Venous Blood Culture - Final NO GROWTH AFTER 5 DAYS INCUBATION 04/02/19 14:54 Peritoneal Fluid ROB Preparation - Preliminary 04/02/19 14:54 Peritoneal Fluid Fungal Culture - Preliminary 03/31/19 02:17 Urine - Urine Nephrostomy Tube Left Urine Culture - Final Klebsiella Pneumoniae - Esbl a/p GI bleed- per GI chronic respiratory failure ?aspiration pneumonia ?aspiration, colonized with resistant klebsiella (CRE) in urine has completed 7 days of gentamicin - now off hold vancomycin- trough is high-19 continue zosyn elevated creatinine- management per icu team contact isolation for CRE overall prognosis is poor
--- NOTE | 2019-04-19 11:20 | PN ---
Progress Note, Physician Chief Complaint: Acute on Chronic Respiratory Failure UTI Ascites History of Present Illness: mechanical vent H/H much improved returned from EGD- source of bleeding still unidentifiable + melena/hematochezia Family frustrated of not being able to understand the source of emerging chronic and acute issues, mainly bleeding Has had bleeding from bladder in the past at [facility]-records reviewed Had rectal bleed in 04/2018, went to [facility] in [place], await records Awaiting records from [facility] and [facility] 04/19/19: No more overt bleeding Awake and alert Daughter Kari at bedside Trial of PMV today and Palliative care consult. - Current Medication List Current Medications: Active Medications Amino Acids (Prosource No Carb Liquid Pkt) 30 ml GT BID@0800,1730 [facility] Last Admin: 04/19/19 08:35 Dose: 30 ml Artificial Tears (Artificial Tears) 1 drop OU QID [facility] Last Admin: 04/19/19 09:00 Dose: 1 drop Diltiazem HCl (Cardizem Injection -) 5 mg IVPUSH Q4H PRN PRN Reason: TACHYCARDIA Last Admin: 04/18/19 11:35 Dose: 5 mg Diltiazem HCl (Cardizem -) 30 mg PO Q6HPO [facility] Escitalopram Oxalate (Lexapro -) 20 mg PO DAILY [facility] Last Admin: 04/19/19 09:01 Dose: 20 mg Ferrous Sulfate (Feosol) 300 mg GT BID [facility] Last Admin: 04/19/19 09:26 Dose: 300 mg Finasteride (Proscar -) 5 mg PO DAILY [facility] Last Admin: 04/19/19 09:01 Dose: 5 mg Piperacillin Sod/Tazobactam (Sod 3.375 gm/ Dextrose) 50 mls @ 100 mls/hr IVPB Q8H-IV [facility]; Protocol Last Admin: 04/19/19 09:01 Dose: 100 mls/hr Dextrose/Lactated Ringer's (D5-Lr -) 1,000 mls @ 75 mls/hr IV ASDIR [facility] Last Admin: 04/19/19 10:59 Dose: 75 mls/hr Insulin Aspart (Novolog Vial Sliding Scale -) 1 vial SQ ACHS [facility]; Protocol Last Admin: 04/19/19 10:58 Dose: Not Given Metoprolol Tartrate (Lopressor -) 50 mg PEG Q6HPO [facility] Last Admin: 04/19/19 06:45 Dose: Not Given Metoprolol Tartrate (Lopressor Injection -) 5 mg IVPUSH Q4H PRN PRN Reason: HYPERTENSION Last Admin: 04/18/19 03:42 Dose: 5 mg Metoprolol Tartrate (Lopressor Injection -) 10 mg IVPUSH Q4H PRN PRN Reason: TACHYCARDIA Last Admin: 04/15/19 23:01 Dose: 10 mg Ondansetron HCl (Zofran Injection) 4 mg IVPUSH Q6H PRN PRN Reason: NAUSEA AND/OR VOMITING Pantoprazole Sodium (Protonix Iv) 40 mg IVPUSH BID [facility] Last Admin: 04/19/19 09:01 Dose: 40 mg Potassium Chloride (Potassium Chloride Oral Liquid) 20 meq PO DAILY [facility] Last Admin: 04/19/19 09:01 Dose: 20 meq Sodium Chloride (Normal Saline For Inhalation -) 3 ml IH Q6H PRN PRN Reason: COUGH Last Admin: 04/10/19 04:00 Dose: 3 ml - Objective Vital Signs: Vital Signs Temperature 97.3 F L 04/19/19 10:00 Pulse Rate 93 H 04/19/19 10:00 Respiratory Rate 16 04/19/19 10:00 Blood Pressure 95/71 04/19/19 10:00 O2 Sat by Pulse Oximetry (%) 98 04/19/19 08:00 Constitutional: Yes: Well Nourished, No Distress, Calm Cardiovascular: Yes: Regular Rate and Rhythm Respiratory: Yes: Mechanically Ventilated, Rhonchi Gastrointestinal: Yes: Normal Bowel Sounds, Soft Genitourinary: Yes: WNL Musculoskeletal: Yes: WNL Extremities: Yes: WNL Edema: Yes Peripheral Pulses WNL: No Integumentary: Yes: Pressure Ulcer (sacral) Wound/Incision: Yes: Dressing Dry and Intact Neurological: Yes: Alert, Oriented Psychiatric: Yes: Alert, Oriented Labs: CBC, BMP 04/19/19 07:30 04/19/19 07:30 INR, PTT INR 1.43 (0.83-1.09) H 04/18/19 05:20 Fibrinogen 295.0 mg/dL (238-498) 04/16/19 05:30 Assessment/Plan (1) Acute and chronic respiratory failure Assessment/Plan: -Pulm on board -Mechanically Ventilated -keep SpO2 >90% -CXR shows cardiomegaly, left basilar compressive atelectasis, left pleural effusion, right pleural effusion -Sputum Culture positive for MRSA Code(s): J96.20 - ACUTE AND CHR RESP FAILURE, UNSP W HYPOXIA OR HYPERCAPNIA (2) Anemia Assessment/Plan: -monitor Hg daily and transfuse for Hg <7.0 to avoid fluid overload -GI and Hematology on board Code(s): D64.9 - ANEMIA, UNSPECIFIED (3) Atrial flutter Assessment/Plan: -Metoprolol and Cardizem -Cardiology on board -Rate controlled now Code(s): I48.92 - UNSPECIFIED ATRIAL FLUTTER (4) COPD (chronic obstructive pulmonary disease) Assessment/Plan: -Pulm on board -Mechanically Ventilated -keep SpO2 >90% -CXR shows cardiomegaly, left basilar compressive atelectasis, left pleural effusion, right pleural effusion Code(s): J44.9 - CHRONIC OBSTRUCTIVE PULMONARY DISEASE, UNSPECIFIED (5) Diabetes mellitus Assessment/Plan: -BGM ACHS -ISS Code(s): E11.9 - TYPE 2 DIABETES MELLITUS WITHOUT COMPLICATIONS (6) GI bleed Assessment/Plan: -GI on board -Pantoprazole + octreotide drip discontinued -Tolerating Protonix IVP BID -EGD-unable to identify the source of bleeding -CTA Abd/pelvis was negative Code(s): K92.2 - GASTROINTESTINAL HEMORRHAGE, UNSPECIFIED (7) HTN (hypertension) Assessment/Plan: -Metoprolol + Cardizem Code(s): I10 - ESSENTIAL (PRIMARY) HYPERTENSION (8) SBO (small bowel obstruction) Assessment/Plan: -CTAP shows no evidence of bowel obstruction -GI on board Code(s): K56.609 - UNSP INTESTNL OBST, UNSP TO PARTIAL VERSUS COMPLETE OBST (9) Ascites Assessment/Plan: -s/p paracentesis -Ascites Fluid specimen noted albumin 1.8 with elevated globulins, 2+ proteinuria, macrocytic anemia raise suspicion for hematologic malingnancy -Hematology on board Code(s): R18.8 - OTHER ASCITES (10) Sepsis Assessment/Plan: -ID on board -Leukocytosis -afebrile -Sputum Culture positive for MRSA -BC neg -UC positive ESBL, Klebsiella -Continue Zosyn -CXR shows cardiomegaly, left basilar compressive atelectasis, left pleural effusion, right pleural effusion Code(s): A41.9 - SEPSIS, UNSPECIFIED ORGANISM Assessment/Plan see problem list dvt ppx
--- NOTE | 2019-04-19 12:26 | PN ---
Teaching Attending Note Name of Resident: Josy Price ATTENDING PHYSICIAN STATEMENT I saw and evaluated the patient. I reviewed the resident's note and discussed the case with the resident. I agree with the resident's findings and plan as documented. SUBJECTIVE: Patient seen and examined in the ICU. Awake and responsive. Some dark stool noted overnight. Tolerating enteral feeds. Tachycardia improved with Cardizem. Intake & Output 04/16/19 04/17/19 04/18/19 04/19/19 23:59 23:59 23:59 23:59 Intake Total 1650 1028 1154 1135 Output Total 250 400 400 125 Balance 1400 429 257 1631 Weight 218 lb 218 lb 214 lb 8.156 oz Last Vital Signs Temp Pulse Resp BP Pulse Ox 97.3 F L 93 H 16 95/71 98 04/19/19 10:00 04/19/19 10:00 04/19/19 10:00 04/19/19 10:00 04/19/19 08:00 Active Medications Amino Acids (Prosource No Carb Liquid Pkt) 30 ml GT BID@0800,1730 [facility] Last Admin: 04/19/19 08:35 Dose: 30 ml Artificial Tears (Artificial Tears) 1 drop OU QID [facility] Last Admin: 04/19/19 09:00 Dose: 1 drop Diltiazem HCl (Cardizem Injection -) 5 mg IVPUSH Q4H PRN PRN Reason: TACHYCARDIA Last Admin: 04/18/19 11:35 Dose: 5 mg Diltiazem HCl (Cardizem -) 30 mg PO Q6HPO [facility] Escitalopram Oxalate (Lexapro -) 20 mg PO DAILY [facility] Last Admin: 04/19/19 09:01 Dose: 20 mg Ferrous Sulfate (Feosol) 300 mg GT BID [facility] Last Admin: 04/19/19 09:26 Dose: 300 mg Finasteride (Proscar -) 5 mg PO DAILY [facility] Last Admin: 04/19/19 09:01 Dose: 5 mg Piperacillin Sod/Tazobactam (Sod 3.375 gm/ Dextrose) 50 mls @ 100 mls/hr IVPB Q8H-IV [facility]; Protocol Last Admin: 04/19/19 09:01 Dose: 100 mls/hr Dextrose/Lactated Ringer's (D5-Lr -) 1,000 mls @ 75 mls/hr IV ASDIR [facility] Last Admin: 04/19/19 10:59 Dose: 75 mls/hr Insulin Aspart (Novolog Vial Sliding Scale -) 1 vial SQ ACHS [facility]; Protocol Last Admin: 04/19/19 10:58 Dose: Not Given Metoprolol Tartrate (Lopressor -) 50 mg PEG Q6HPO [facility] Last Admin: 04/19/19 06:45 Dose: Not Given Metoprolol Tartrate (Lopressor Injection -) 5 mg IVPUSH Q4H PRN PRN Reason: HYPERTENSION Last Admin: 04/18/19 03:42 Dose: 5 mg Metoprolol Tartrate (Lopressor Injection -) 10 mg IVPUSH Q4H PRN PRN Reason: TACHYCARDIA Last Admin: 04/15/19 23:01 Dose: 10 mg Ondansetron HCl (Zofran Injection) 4 mg IVPUSH Q6H PRN PRN Reason: NAUSEA AND/OR VOMITING Pantoprazole Sodium (Protonix Iv) 40 mg IVPUSH BID [facility] Last Admin: 04/19/19 09:01 Dose: 40 mg Potassium Chloride (Potassium Chloride Oral Liquid) 20 meq PO DAILY [facility] Last Admin: 04/19/19 09:01 Dose: 20 meq Sodium Chloride (Normal Saline For Inhalation -) 3 ml IH Q6H PRN PRN Reason: COUGH Last Admin: 04/10/19 04:00 Dose: 3 ml Gen: vented, awake Heart: S1S2, regular Lung: Bilateral scattered rhonchi, decreased breath sounds at the bases Abd: +BS, PEG, S/S N/T X4Q Ext: + edema, weeping, ecchymoses and skin tears : Nephrostomy tube to bag drainage intact ASSESS: Atrial Flutter with RVR GI Bleed Acute Blood Loss Anemia Chronic Respiratory Failure UTI/Pneumonia/Sepsis Lactic Acidosis CAD s/p CABG COPD HTN Hyperlipidemia Ascites PLAN: Tube feeds as tolerated AC Mode of vent PPI Normal transfusion thresholds Rate control with Cardizem Holding anticoagulation ABX Per ID DVT/GI prophylaxis DNR Vent floor monitoring Dr Castro
[2019-04-19] MEDS: dilTIAZem HCL 30 MG TABLET (FP) PO SCH ×3 (12:39→23:36)
--- NOTE | 2019-04-19 12:45 | PN ---
Physical Exam: SUBJECTIVE: Patient seen and examined Pt developed aflutter with RVR 2 days ago. rhythm resolved with cardizem 1 episode of small black stools yesterday tube feeds restarted yesterday as well. OBJECTIVE: Vital Signs Period Temp Pulse Resp BP Sys/Kang Pulse Ox Last 24 Hr 97.2 F-97.9 F 72-94 12-30 95-110/54-74 98-98 O GEN: alert, can communicate. non-verbal HEENT: NC/AT, EOMI, PERRLA. No facial asymmetry. Moist mucous membranes. tracheostomy CV: S1/S2, RRR, no m/r/g LUNG: coarse breath sounds on inspiration. GI: distended abdomen. PEG tube in place.non-tender to palpation EXTREMITIES: 2+ distal pulses. SKIN: warm, dry, normal turgor PSYCH: normal mood and affect NEURO: Moving all extremities Laboratory Results - last 24 hr 04/18/19 04/18/19 04/19/19 17:29 22:30 06:38 WBC RBC Hgb Hct MCV MCH MCHC RDW Plt Count MPV Absolute Neuts (auto) Neutrophils % Lymphocytes % Monocytes % Eosinophils % Basophils % Nucleated RBC % Sodium Potassium Chloride Carbon Dioxide Anion Gap BUN Creatinine Est GFR (CKD-EPI)AfAm Est GFR (CKD-EPI)NonAf POC Glucometer 117 118 104 Random Glucose Calcium Phosphorus Magnesium Total Bilirubin AST ALT Alkaline Phosphatase Total Protein Albumin Vancomycin Pre-Dose 04/19/19 04/19/19 04/19/19 07:30 07:30 07:30 WBC 17.9 H RBC 2.98 L Hgb 9.0 L Hct 27.8 L MCV 93.3 MCH 30.1 MCHC 32.3 RDW 18.5 H Plt Count 169 MPV 9.2 Absolute Neuts (auto) 16.2 H Neutrophils % 90.6 H Lymphocytes % 3.3 L D Monocytes % 4.4 Eosinophils % 1.4 Basophils % 0.3 Nucleated RBC % 0 Sodium 147 H Potassium 3.5 Chloride 118 H Carbon Dioxide 21 Anion Gap 7 L BUN 36.5 H Creatinine 1.7 H Est GFR (CKD-EPI)AfAm 42.58 Est GFR (CKD-EPI)NonAf 36.74 POC Glucometer Random Glucose 106 Calcium 7.4 L Phosphorus 3.0 Magnesium 1.8 Total Bilirubin 0.7 AST 20 ALT 15 Alkaline Phosphatase 106 Total Protein 6.0 L Albumin 1.2 L Vancomycin Pre-Dose 19.5 04/19/19 10:51 WBC RBC Hgb Hct MCV MCH MCHC RDW Plt Count MPV Absolute Neuts (auto) Neutrophils % Lymphocytes % Monocytes % Eosinophils % Basophils % Nucleated RBC % Sodium Potassium Chloride Carbon Dioxide Anion Gap BUN Creatinine Est GFR (CKD-EPI)AfAm Est GFR (CKD-EPI)NonAf POC Glucometer 113 Random Glucose Calcium Phosphorus Magnesium Total Bilirubin AST ALT Alkaline Phosphatase Total Protein Albumin Vancomycin Pre-Dose Active Medications Generic Name Dose Route Start Last Admin Trade Name Freq PRN Reason Stop Dose Admin Amino Acids 30 ml 04/18/19 17:30 04/19/19 08:35 Prosource No Carb Liquid Pkt GT 30 ml BID@0800,1730 [facility] Administration Artificial Tears 1 drop 04/18/19 22:00 04/19/19 09:00 Artificial Tears OU 1 drop QID [facility] Administration Diltiazem HCl 5 mg 04/17/19 09:40 04/18/19 11:35 Cardizem Injection - IVPUSH 5 mg Q4H PRN Administration TACHYCARDIA Diltiazem HCl 30 mg 04/19/19 12:00 04/19/19 12:39 Cardizem - PO Not Given Q6HPO [facility] Escitalopram Oxalate 20 mg 04/18/19 10:00 04/19/19 09:01 Lexapro - PO 20 mg DAILY [facility] Administration Ferrous Sulfate 300 mg 04/18/19 10:00 04/19/19 09:26 Feosol GT 300 mg BID [facility] Administration Finasteride 5 mg 04/18/19 10:00 04/19/19 09:01 Proscar - PO 5 mg DAILY [facility] Administration Piperacillin Sod/Tazobactam 50 mls @ 100 mls/hr 04/17/19 10:45 04/19/19 09:01 Sod 3.375 gm/ Dextrose IVPB 100 mls/hr Q8H-IV [facility] Administration Protocol Dextrose/Lactated Ringer's 1,000 mls @ 75 mls/hr 04/19/19 10:47 04/19/19 10: 59 D5-Lr - IV 75 mls/hr ASDIR [facility] Administration Insulin Aspart 1 vial 04/09/19 11:00 04/19/19 10:58 Novolog Vial Sliding Scale - SQ Not Given ACHS [facility] Protocol Metoprolol Tartrate 50 mg 04/02/19 01:00 04/19/19 12:39 Lopressor - PEG Not Given Q6HPO [facility] Metoprolol Tartrate 5 mg 04/14/19 13:38 04/18/19 03:42 Lopressor Injection - IVPUSH 5 mg Q4H PRN Administration HYPERTENSION Metoprolol Tartrate 10 mg 04/14/19 13:38 04/15/19 23:01 Lopressor Injection - IVPUSH 10 mg Q4H PRN Administration TACHYCARDIA Ondansetron HCl 4 mg 04/06/19 02:10 Zofran Injection IVPUSH Q6H PRN NAUSEA AND/OR VOMITING Pantoprazole Sodium 40 mg 04/19/19 10:00 04/19/19 09:01 Protonix Iv IVPUSH 40 mg BID [facility] Administration Potassium Chloride 20 meq 04/19/19 10:00 04/19/19 09:01 Potassium Chloride Oral Liquid PO 20 meq DAILY [facility] Administration Sodium Chloride 3 ml 04/02/19 02:23 04/10/19 04:00 Normal Saline For Inhalation - IH 3 ml Q6H PRN Administration COUGH ASSESSMENT/PLAN: 83 M with PMH of CABG, ESRD with b/l nephrosotomy tubes, PNA, chronic respiratory failure s/p trach, PEG tube, DM, anemia who is under ICU management for tachycardia 2/2 to ongoing GI bleed. Neuro -Alert can follow commands Cardiovascular -Hx of CABG, Afib. -Tachycardic, likely in setting of GI bleed - episode of A.flutter with RVR requiring cardizem IV -continue on cardizem PO for rate control Pulm -Tracheostomy to vent; -Sputum culture + for MRSA -Continue antibiotics GI -had 1 small bloody bowel movement yesterday (dark stools) -repeat EGD from 04/16 showed clotted blood in the fundus and no evidence of bleeding site or ulcer -CTA a/p: moderate ascites and renal cysts S/p paracentesis for ascitic fluid -per GI d/c octreotide. give protonix 40mg IV -Zofran prn -GI following Endocrine -Patient has hx of DM -ISS -BGMS ACHS Heme -current Hb 9.o -maintain Hgb above 8 -trend H&H; transfusion threshold <8 Renal -Cr 1.7 today has been increasing - Give fluids (LR) -d/c Lisinopril ID -Sputum + MRSA, urine cx + Klebsiella ESBL -gentamicin treatment completed. -Continue Vanc/Zosyn-- f/u vanc trough -Continue contact isolation for CRE -ID following patient PPX -SCD's; hold chemical AC in setting of GI bleed F: gentle hydration with LR E: trend CMP replete lytes prn N: enteral feeds resumed #Dispo transfer to med-surg Visit type - Emergency Visit Emergency Visit: Yes ED Registration Date: 03/31/19 Care time: The patient presented to the Emergency Department on the above date and was hospitalized for further evaluation of their emergent condition. - New Patient This patient is new to me today: No - Critical Care Critical Care patient: No - Discharge Referral Referred to [facility] Med P.C.: No ATTENDING PHYSICIAN STATEMENT I saw and evaluated the patient. I reviewed the resident's note and discussed the case with the resident. I agree with the resident's findings and plan as documented. SUBJECTIVE: OBJECTIVE: ASSESSMENT AND PLAN:
[2019-04-19] MEDS: LACTATED RINGERS SOLUTION 1,000 ML/1,000 ML INFUS.BAG IV SCH ×2 (13:34→23:55)
--- NOTE | 2019-04-19 13:52 | PN ---
Progress Note, [employer] [facility] - Note Progress Note: PMV evaluation and swallowing evaluation performed. Voicing (vocal quality,volume, coordination of pulmonary with phonation and articulation) improved significantly during session. Pt was better able to cough and expectorate secretions with practice. Swallow reflex was reduced in excursion. Stasis/aspiration could not be r/o reliably at bedside. O2 sat was 100% for 1/2 I was there and then pt continued to use PMV with family /palliative care once I left. PMV daily, as tolerated, increasing time as able to improve communication,voice , volume, pulmonary control and function, swallowing and to facilitate weaning from Ventilator/PEG MBS once using PMV for a couple of days.
--- NOTE | 2019-04-19 14:05 | PN ---
Progress Note, Physician Chief Complaint: Fluid overload, Tachy History of Present Illness: 83 year old male with a PMHx of HTN, DM, CAD s/p CABG 05/2018, ESRD, COPD, prostate cancer, s/p radiation, and s/p trach/vent/peg admitted [facility] [place] [facility] for coffee ground emesis. EGD 04/16/19 showed no source of active bleeding. But clotted blood seen in fundus. EKG: atach/flutter with VR 136bpm, NIVCD CT chest/abd/pelvis: Bilateral pleural effusions, consolidation, moderate to large ascites 4.6cm Throacic anuerysm - Current Medication List Current Medications: Active Medications Amino Acids (Prosource No Carb Liquid Pkt) 30 ml GT BID@0800,1730 [facility] Last Admin: 04/19/19 08:35 Dose: 30 ml Artificial Tears (Artificial Tears) 1 drop OU QID [facility] Last Admin: 04/19/19 09:00 Dose: 1 drop Diltiazem HCl (Cardizem Injection -) 5 mg IVPUSH Q4H PRN PRN Reason: TACHYCARDIA Last Admin: 04/18/19 11:35 Dose: 5 mg Diltiazem HCl (Cardizem -) 30 mg PO Q6HPO [facility] Last Admin: 04/19/19 12:39 Dose: Not Given Escitalopram Oxalate (Lexapro -) 20 mg PO DAILY [facility] Last Admin: 04/19/19 09:01 Dose: 20 mg Ferrous Sulfate (Feosol) 300 mg GT BID [facility] Last Admin: 04/19/19 09:26 Dose: 300 mg Finasteride (Proscar -) 5 mg PO DAILY [facility] Last Admin: 04/19/19 09:01 Dose: 5 mg Piperacillin Sod/Tazobactam (Sod 3.375 gm/ Dextrose) 50 mls @ 100 mls/hr IVPB Q8H-IV [facility]; Protocol Last Admin: 04/19/19 09:01 Dose: 100 mls/hr Lactated Ringer's (Lactated Ringers Solution) 1,000 ml in 1,000 mls @ 100 mls/ hr IV ASDIR [facility] Last Admin: 04/19/19 13:34 Dose: 100 mls/hr Insulin Aspart (Novolog Vial Sliding Scale -) 1 vial SQ ACHS [facility]; Protocol Last Admin: 04/19/19 10:58 Dose: Not Given Metoprolol Tartrate (Lopressor -) 50 mg PEG Q6HPO [facility] Last Admin: 04/19/19 12:39 Dose: Not Given Metoprolol Tartrate (Lopressor Injection -) 5 mg IVPUSH Q4H PRN PRN Reason: HYPERTENSION Last Admin: 04/18/19 03:42 Dose: 5 mg Metoprolol Tartrate (Lopressor Injection -) 10 mg IVPUSH Q4H PRN PRN Reason: TACHYCARDIA Last Admin: 04/15/19 23:01 Dose: 10 mg Ondansetron HCl (Zofran Injection) 4 mg IVPUSH Q6H PRN PRN Reason: NAUSEA AND/OR VOMITING Pantoprazole Sodium (Protonix Iv) 40 mg IVPUSH BID [facility] Last Admin: 04/19/19 09:01 Dose: 40 mg Potassium Chloride (Potassium Chloride Oral Liquid) 20 meq PO DAILY [facility] Last Admin: 04/19/19 09:01 Dose: 20 meq Sodium Chloride (Normal Saline For Inhalation -) 3 ml IH Q6H PRN PRN Reason: COUGH Last Admin: 04/10/19 04:00 Dose: 3 ml - Objective Vital Signs: Vital Signs Temperature 97.5 F L 04/19/19 12:00 Pulse Rate 94 H 04/19/19 12:00 Respiratory Rate 17 04/19/19 12:00 Blood Pressure 110/74 04/19/19 12:00 O2 Sat by Pulse Oximetry (%) 98 04/19/19 08:00 Constitutional: Yes: No Distress, Calm Eyes: Yes: EOM Intact HENT: Yes: WNL, Atraumatic, Normocephalic Neck: Yes: WNL, Supple, Trachea Midline Cardiovascular: Yes: Pulse Irregular, S1, S2 (Tracheostomy) Respiratory: Yes: Regular Gastrointestinal: Yes: WNL, Normal Bowel Sounds, Soft ...Rectal Exam: Yes: Deferred Musculoskeletal: Yes: WNL Edema: Yes Edema: LLE: 1+, RLE: 1+ Peripheral Pulses WNL: No Peripheral Pulses: Left Radial: 1+, Right Radial: 1+, Left Doralis Pedis: 1+, Right Dorsalis Pedis: 1+, Left Femoral: 1+, Right Femoral: 1+ Integumentary: Yes: WNL Neurological: Yes: WNL, Alert, Oriented Psychiatric: Yes: WNL, Alert, Oriented Labs: CBC, BMP 04/19/19 07:30 04/19/19 07:30 INR, PTT INR 1.43 (0.83-1.09) H 04/18/19 05:20 Fibrinogen 295.0 mg/dL (238-498) 04/16/19 05:30 Assessment/Plan 83 year old male with a PMHx of HTN, DM, CAD s/p CABG 05/2018, ESRD, COPD, prostate cancer, s/p radiation, and s/p trach/vent/peg admitted [place] [facility] for coffee ground emesis. EGD 04/16/19 showed no source of active bleeding. But clotted blood seen in fundus. EKG: atach/flutter with VR 136bpm, NIVCD CT chest/abd/pelvis: Bilateral pleural effusions, consolidation, moderate to large ascites 4.6cm Throacic anuerysm Please apply compression stockings. Iv lasix 40mg BID. Increase metropolol if BP ALLOWS. SAT/FLUID RESTRICTIONS.
[2019-04-20] MEDS ORDERED: PIPERACILLIN/TAZOBACTAM 3.375 GM VIAL IVPB ONE ×2 (02:37→08:50)
[2019-04-20] MEDS ORDERED: DEXTROSE 5%-WATER - 50 ML IVPB ONE ×2 (02:38→08:50)
[2019-04-20] MEDS: METOPROLOL TARTRATE 5 MG/5 ML VIAL IVPUSH PRN (02:40)
[2019-04-20] MEDS: PIPERACILLIN/TAZOB 3.375 GM 3.375 GM in DEXTROSE 5%-WATER - 50 ML IVPB SCH ×2 (02:41→09:05)
[2019-04-20] MEDS: dilTIAZem HCL 30 MG TABLET (FP) PO SCH ×4 (05:54→23:44)
[2019-04-20] MEDS: METOPROLOL TARTRATE 50 MG TABLET (FP) PEG SCH ×5 (05:54→23:43)
[2019-04-20] MEDS: INSULIN SLIDING SCALE (NOVOLOG) 1 VIAL SQ SCH ×4 (06:07→21:15)
[2019-04-20] MEDS ORDERED: DEXTROSE 5%-LACTATED RINGERS 1,000 ML IV SCH ×2 (06:15→21:15)
--- NOTE | 2019-04-20 08:34 | PN ---
Progress Note, Physician Chief Complaint: MAITE, SEEN IN ICU PATIENT IS COMMUNICATING WITH WRITING AND HEAD GESTURES. EVENTS AND NOTES REVIEWED - Current Medication List Current Medications: Active Medications Amino Acids (Prosource No Carb Liquid Pkt) 30 ml GT BID@0800,1730 [facility] Last Admin: 04/19/19 16:51 Dose: 30 ml Artificial Tears (Artificial Tears) 1 drop OU QID [facility] Last Admin: 04/19/19 21:56 Dose: 1 drop Diltiazem HCl (Cardizem Injection -) 5 mg IVPUSH Q4H PRN PRN Reason: TACHYCARDIA Last Admin: 04/18/19 11:35 Dose: 5 mg Diltiazem HCl (Cardizem -) 30 mg PO Q6HPO [facility] Last Admin: 04/20/19 05:54 Dose: 30 mg Escitalopram Oxalate (Lexapro -) 20 mg PO DAILY [facility] Last Admin: 04/19/19 09:01 Dose: 20 mg Ferrous Sulfate (Feosol) 300 mg GT BID [facility] Last Admin: 04/19/19 21:56 Dose: 300 mg Finasteride (Proscar -) 5 mg PO DAILY [facility] Last Admin: 04/19/19 09:01 Dose: 5 mg Piperacillin Sod/Tazobactam (Sod 3.375 gm/ Dextrose) 50 mls @ 100 mls/hr IVPB Q8H-IV [facility]; Protocol Last Admin: 04/20/19 02:41 Dose: 100 mls/hr Dextrose/Lactated Ringer's (D5-Lr -) 1,000 mls @ 75 mls/hr IV ASDIR [facility] Insulin Aspart (Novolog Vial Sliding Scale -) 1 vial SQ ACHS [facility]; Protocol Last Admin: 04/20/19 06:07 Dose: Not Given Metoprolol Tartrate (Lopressor -) 50 mg PEG Q6HPO [facility] Last Admin: 04/20/19 05:54 Dose: 50 mg Metoprolol Tartrate (Lopressor Injection -) 5 mg IVPUSH Q4H PRN PRN Reason: HYPERTENSION Last Admin: 04/20/19 02:40 Dose: 5 mg Metoprolol Tartrate (Lopressor Injection -) 10 mg IVPUSH Q4H PRN PRN Reason: TACHYCARDIA Last Admin: 04/15/19 23:01 Dose: 10 mg Ondansetron HCl (Zofran Injection) 4 mg IVPUSH Q6H PRN PRN Reason: NAUSEA AND/OR VOMITING Pantoprazole Sodium (Protonix Iv) 40 mg IVPUSH BID [facility] Last Admin: 04/19/19 21:56 Dose: 40 mg Potassium Chloride (Potassium Chloride Oral Liquid) 20 meq PO DAILY [facility] Last Admin: 04/19/19 09:01 Dose: 20 meq Sodium Chloride (Normal Saline For Inhalation -) 3 ml IH Q6H PRN PRN Reason: COUGH Last Admin: 04/10/19 04:00 Dose: 3 ml - Objective Vital Signs: Vital Signs Temperature 97.5 F L 04/20/19 06:00 Pulse Rate 93 H 04/20/19 08:00 Respiratory Rate 31 H 04/20/19 08:14 Blood Pressure 105/76 04/20/19 08:00 O2 Sat by Pulse Oximetry (%) 99 04/19/19 20:32 Constitutional: Yes: Mild Distress Cardiovascular: Yes: Pulse Irregular Respiratory: Yes: Diminished, Mechanically Ventilated (TRACHEOSTOMY) Gastrointestinal: Yes: Soft Genitourinary: Yes: Huber Present Musculoskeletal: Yes: Muscle Weakness Integumentary: Yes: Bruising, Erythema, Pressure Ulcer, Venous Stasis Changes Wound/Incision: Yes: Open to air, Dressing Dry and Intact, Excoriated, Unapproximated Neurological: Yes: Pre-Existing Deficit ...Motor Strength: LLE, RLE Psychiatric: Yes: Other Labs: INR, PTT INR 1.43 (0.83-1.09) H 04/18/19 05:20 Fibrinogen 295.0 mg/dL (238-498) 04/16/19 05:30 Problem List - Problems (1) Acute and chronic respiratory failure Code(s): J96.20 - ACUTE AND CHR RESP FAILURE, UNSP W HYPOXIA OR HYPERCAPNIA (2) Anemia Code(s): D64.9 - ANEMIA, UNSPECIFIED (3) COPD (chronic obstructive pulmonary disease) Code(s): J44.9 - CHRONIC OBSTRUCTIVE PULMONARY DISEASE, UNSPECIFIED (4) Coffee ground emesis Code(s): K92.0 - HEMATEMESIS (5) Diabetes mellitus Code(s): E11.9 - TYPE 2 DIABETES MELLITUS WITHOUT COMPLICATIONS (6) ESRD (end stage renal disease) Code(s): N18.6 - END STAGE RENAL DISEASE (7) GI bleed Code(s): K92.2 - GASTROINTESTINAL HEMORRHAGE, UNSPECIFIED (8) HLD (hyperlipidemia) Code(s): E78.5 - HYPERLIPIDEMIA, UNSPECIFIED (9) HTN (hypertension) Code(s): I10 - ESSENTIAL (PRIMARY) HYPERTENSION (10) Sepsis Code(s): A41.9 - SEPSIS, UNSPECIFIED ORGANISM (11) Status post tracheostomy Code(s): Z93.0 - TRACHEOSTOMY STATUS (12) Atrial flutter Code(s): I48.92 - UNSPECIFIED ATRIAL FLUTTER Assessment/Plan PEG FUNCTIONING TUBE FEEDS RESTARTED TODAY DECREASE H20 VIA PEG TO 25CC/HR MEDS CHANGED TO PEG IV ABX PRESSURE SUPPORT VENT SUPPORT VIA TRACHEOSTOMY LABS REVIEWED KCL REPLETED CARDIZEM/LOPRESSOR PEG FOR RATE CONTROL FAMILY TO DISCUSS WITH PALLIATIVE CARE AND PATIENT ABOUT ADVANCED DIRECTIVES.
[2019-04-20 08:40] LABS: HEMATOCRIT 28.2 % (35.4-49); HEMOGLOBIN 9.1 GM/dL (11.7-16.9); MCH 30.1 pg (25.7-33.7); MCHC 32.2 g/dl (32.0-35.9); MEAN CELL VOLUME 93.3 fl (80-96); MEAN PLT VOLUME 9.2 fl (7.5-11.1); PLATELET COUNT 177 K/MM3 (134-434); RBC 3.03 M/mm3 (4.00-5.60); WHITE BLOOD COUNT 15.4 K/mm3 (4.0-10.0)
[2019-04-20] MEDS ORDERED: PT OWN MED DRAWER 7, Y5N ONE (08:49)
[2019-04-20] MEDS: AMINO ACIDS/PROTEIN HYDROLYS 30 ML LIQUID.PKT GT SCH (08:52)
[2019-04-20 08:57] LABS: ALBUMIN 1.2 g/dl (3.4-5.0); BILIRUBIN,TOTAL 0.8 mg/dL (0.2-1); BLOOD UREA NITROGEN 36.8 mg/dL (7-18); CALCIUM 7.3 mg/dL (8.5-10.1); CREATININE 1.7 mg/dL (0.55-1.3); MAGNESIUM 1.8 mg/dL (1.8-2.4); PHOSPHOROUS 3.3 mg/dL (2.5-4.9); POTASSIUM 3.7 mmol/L (3.5-5.1); TOT PROT 6.2 g/dl (6.4-8.2)
[2019-04-20] MEDS: FINASTERIDE 5 MG TABLET (FP) PO SCH (09:05)
[2019-04-20] MEDS: POTASSIUM CHLORIDE ORAL LIQUID 20 MEQ/15 ML PO SCH (09:05)
[2019-04-20] MEDS: PANTOPRAZOLE SODIUM 40 MG VIAL IVPUSH SCH (09:05)
[2019-04-20] MEDS: ESCITALOPRAM OXALATE 20 MG TABLET PO SCH (09:05)
[2019-04-20] MEDS: FERROUS SO4 300 MG/5 ML ORAL SOLN UNIT DOSE CUPS GT SCH ×2 (09:05→23:45)
--- NOTE | 2019-04-20 09:50 | PN ---
Progress Note, Physician History of Present Illness: seen and examined today in nad. no overnight events. no new complaints. - Current Medication List Current Medications: Active Medications Amino Acids (Prosource No Carb Liquid Pkt) 30 ml GT BID@0800,1730 [facility] Last Admin: 04/20/19 08:52 Dose: 30 ml Artificial Tears (Artificial Tears) 1 drop OU QID [facility] Last Admin: 04/19/19 21:56 Dose: 1 drop Diltiazem HCl (Cardizem Injection -) 5 mg IVPUSH Q4H PRN PRN Reason: TACHYCARDIA Last Admin: 04/18/19 11:35 Dose: 5 mg Diltiazem HCl (Cardizem -) 30 mg PO Q6HPO [facility] Last Admin: 04/20/19 05:54 Dose: 30 mg Escitalopram Oxalate (Lexapro -) 20 mg PO DAILY [facility] Last Admin: 04/20/19 09:05 Dose: 20 mg Ferrous Sulfate (Feosol) 300 mg GT BID [facility] Last Admin: 04/20/19 09:05 Dose: 300 mg Finasteride (Proscar -) 5 mg PO DAILY [facility] Last Admin: 04/20/19 09:05 Dose: 5 mg Piperacillin Sod/Tazobactam (Sod 3.375 gm/ Dextrose) 50 mls @ 100 mls/hr IVPB Q8H-IV [facility]; Protocol Last Admin: 04/20/19 09:05 Dose: 100 mls/hr Insulin Aspart (Novolog Vial Sliding Scale -) 1 vial SQ ACHS [facility]; Protocol Last Admin: 04/20/19 06:07 Dose: Not Given Metoprolol Tartrate (Lopressor -) 50 mg PEG Q6HPO [facility] Last Admin: 04/20/19 05:54 Dose: 50 mg Metoprolol Tartrate (Lopressor Injection -) 5 mg IVPUSH Q4H PRN PRN Reason: HYPERTENSION Last Admin: 04/20/19 02:40 Dose: 5 mg Metoprolol Tartrate (Lopressor Injection -) 10 mg IVPUSH Q4H PRN PRN Reason: TACHYCARDIA Last Admin: 04/15/19 23:01 Dose: 10 mg Ondansetron HCl (Zofran Injection) 4 mg IVPUSH Q6H PRN PRN Reason: NAUSEA AND/OR VOMITING Pantoprazole Sodium (Protonix Iv) 40 mg IVPUSH BID [facility] Last Admin: 04/20/19 09:05 Dose: 40 mg Potassium Chloride (Potassium Chloride Oral Liquid) 20 meq PO DAILY [facility] Last Admin: 04/20/19 09:05 Dose: 20 meq Sodium Chloride (Normal Saline For Inhalation -) 3 ml IH Q6H PRN PRN Reason: COUGH Last Admin: 04/10/19 04:00 Dose: 3 ml - Objective Vital Signs: Vital Signs Temperature 97.5 F L 04/20/19 06:00 Pulse Rate 93 H 04/20/19 08:00 Respiratory Rate 13 04/20/19 08:34 Blood Pressure 105/76 04/20/19 08:00 O2 Sat by Pulse Oximetry (%) 100 04/20/19 08:34 Constitutional: Yes: No Distress, Calm Eyes: Yes: Conjunctiva Clear, EOM Intact HENT: Yes: Atraumatic, Normocephalic Neck: Yes: Supple, Trachea Midline Cardiovascular: Yes: S1, S2. No: Pulse Irregular, Bruit, JVD, Gallop, Murmur, Rub, S3, S4, Varicosities Respiratory: Yes: Regular, Mechanically Ventilated. No: Rales, Rhonchi, Wheezes Gastrointestinal: Yes: Normal Bowel Sounds, Soft. No: Distention, Tenderness Extremities: Yes: WNL Edema: No Peripheral Pulses WNL: Yes Peripheral Pulses: Left Doralis Pedis: 2+, Right Dorsalis Pedis: 2+ Neurological: Yes: Alert Psychiatric: Yes: Alert Labs: CBC, BMP 04/20/19 06:00 04/20/19 06:00 INR, PTT INR 1.43 (0.83-1.09) H 04/18/19 05:20 Fibrinogen 295.0 mg/dL (238-498) 04/16/19 05:30 - ....Imaging Chest X-ray: Report Reviewed, Image Reviewed EKG: Report Reviewed, Image Reviewed Other: Report Reviewed, Image Reviewed (tele-HR currently adequate, paflutter) Assessment/Plan 83 year old male with a PMHx of HTN, DM, CAD s/p CABG 05/2018, ESRD, COPD, prostate cancer, s/p radiation, and s/p trach/vent/peg admitted from half-way for coffee ground emesis. EGD 04/16/19 showed no source of active bleeding. But clotted blood seen in fundus. EKG: atach/flutter with VR 136bpm, NIVCD CT chest/abd/pelvis: Bilateral pleural effusions, consolidation, moderate to large ascites 4.6cm Throacic anuerysm Arrhythmia -HR currently well controlled -cont current diltiazem and metoprolol -not on AC due to bleed
--- NOTE | 2019-04-20 10:38 | PN ---
Teaching Attending Note Name of Resident: Josy Price ATTENDING PHYSICIAN STATEMENT I saw and evaluated the patient. I reviewed the resident's note and discussed the case with the resident. I agree with the resident's findings and plan as documented. SUBJECTIVE: Patient seen and examined in the ICU. Awake and responsive. AC Mode of vent. Tolerating enteral feeds. CVC appears dislodged. Intake & Output 04/17/19 04/18/19 04/19/19 04/20/19 23:59 23:59 23:59 23:59 Intake Total 1028 1154 3270.5 1975 Output Total 400 400 195 450 Balance 908 778 5291.5 1525 Weight 218 lb 214 lb 8.156 oz 222 lb 9 oz Last Vital Signs Temp Pulse Resp BP Pulse Ox 97.5 F L 93 H 13 105/76 100 04/20/19 09:58 04/20/19 08:00 04/20/19 08:34 04/20/19 08:00 04/20/19 08:34 Active Medications Amino Acids (Prosource No Carb Liquid Pkt) 30 ml GT BID@0800,1730 [facility] Last Admin: 04/20/19 08:52 Dose: 30 ml Artificial Tears (Artificial Tears) 1 drop OU QID [facility] Last Admin: 04/19/19 21:56 Dose: 1 drop Diltiazem HCl (Cardizem Injection -) 5 mg IVPUSH Q4H PRN PRN Reason: TACHYCARDIA Last Admin: 04/18/19 11:35 Dose: 5 mg Diltiazem HCl (Cardizem -) 30 mg PO Q6HPO [facility] Last Admin: 04/20/19 05:54 Dose: 30 mg Escitalopram Oxalate (Lexapro -) 20 mg PO DAILY [facility] Last Admin: 04/20/19 09:05 Dose: 20 mg Ferrous Sulfate (Feosol) 300 mg GT BID [facility] Last Admin: 04/20/19 09:05 Dose: 300 mg Finasteride (Proscar -) 5 mg PO DAILY [facility] Last Admin: 04/20/19 09:05 Dose: 5 mg Piperacillin Sod/Tazobactam (Sod 3.375 gm/ Dextrose) 50 mls @ 100 mls/hr IVPB Q8H-IV [facility]; Protocol Last Admin: 04/20/19 09:05 Dose: 100 mls/hr Insulin Aspart (Novolog Vial Sliding Scale -) 1 vial SQ ACHS [facility]; Protocol Last Admin: 04/20/19 06:07 Dose: Not Given Metoprolol Tartrate (Lopressor -) 50 mg PEG Q6HPO [facility] Last Admin: 04/20/19 05:54 Dose: 50 mg Metoprolol Tartrate (Lopressor Injection -) 5 mg IVPUSH Q4H PRN PRN Reason: HYPERTENSION Last Admin: 04/20/19 02:40 Dose: 5 mg Metoprolol Tartrate (Lopressor Injection -) 10 mg IVPUSH Q4H PRN PRN Reason: TACHYCARDIA Last Admin: 04/15/19 23:01 Dose: 10 mg Ondansetron HCl (Zofran Injection) 4 mg IVPUSH Q6H PRN PRN Reason: NAUSEA AND/OR VOMITING Pantoprazole Sodium (Protonix Iv) 40 mg IVPUSH BID [facility] Last Admin: 04/20/19 09:05 Dose: 40 mg Potassium Chloride (Potassium Chloride Oral Liquid) 20 meq PO DAILY [facility] Last Admin: 04/20/19 09:05 Dose: 20 meq Sodium Chloride (Normal Saline For Inhalation -) 3 ml IH Q6H PRN PRN Reason: COUGH Last Admin: 04/10/19 04:00 Dose: 3 ml Gen: vented, awake Heart: S1S2, regular Lung: Bilateral scattered rhonchi, decreased breath sounds at the bases Abd: +BS, PEG, S/S N/T X4Q Ext: + edema, weeping, ecchymoses and skin tears : Nephrostomy tube to bag drainage intact Laboratory Results - last 24 hr 04/16/19 04/16/19 04/19/19 05:30 05:30 10:51 WBC RBC Hgb Hct MCV MCH MCHC RDW Plt Count MPV Fibrin Degrad Products 5 H Sodium Potassium Chloride Carbon Dioxide Anion Gap BUN Creatinine Est GFR (CKD-EPI)AfAm Est GFR (CKD-EPI)NonAf POC Glucometer 113 Random Glucose Calcium Phosphorus Magnesium Total Bilirubin AST ALT Alkaline Phosphatase Total Protein Albumin Random Vancomycin Blood Type O NEGATIVE Antibody Screen Negative Crossmatch See Detail 04/19/19 04/19/19 04/20/19 16:56 21:53 05:51 WBC RBC Hgb Hct MCV MCH MCHC RDW Plt Count MPV Fibrin Degrad Products Sodium Potassium Chloride Carbon Dioxide Anion Gap BUN Creatinine Est GFR (CKD-EPI)AfAm Est GFR (CKD-EPI)NonAf POC Glucometer 94 96 76 Random Glucose Calcium Phosphorus Magnesium Total Bilirubin AST ALT Alkaline Phosphatase Total Protein Albumin Random Vancomycin Blood Type Antibody Screen Crossmatch 04/20/19 04/20/19 04/20/19 06:00 06:00 06:00 WBC 15.4 H RBC 3.03 L Hgb 9.1 L Hct 28.2 L MCV 93.3 MCH 30.1 MCHC 32.2 RDW 20.0 H Plt Count 177 MPV 9.2 Fibrin Degrad Products Sodium 143 Potassium 3.7 Chloride 114 H Carbon Dioxide 22 Anion Gap 8 BUN 36.8 H Creatinine 1.7 H Est GFR (CKD-EPI)AfAm 42.58 Est GFR (CKD-EPI)NonAf 36.74 POC Glucometer Random Glucose 77 Calcium 7.3 L Phosphorus 3.3 Magnesium 1.8 Total Bilirubin 0.8 AST 19 ALT 14 Alkaline Phosphatase 111 Total Protein 6.2 L Albumin 1.2 L Random Vancomycin 18.9 Blood Type Antibody Screen Crossmatch ASSESS: Atrial Flutter with RVR GI Bleed Acute Blood Loss Anemia Chronic Respiratory Failure UTI/Pneumonia/Sepsis Lactic Acidosis CAD s/p CABG COPD HTN Hyperlipidemia Ascites PLAN: Tube feeds as tolerated AC Mode of vent PPI Normal transfusion thresholds Rate control with Cardizem Holding anticoagulation ABX Per ID DVT/GI prophylaxis DNR Obtain peripheral access Vent floor monitoring Dr Castro
--- NOTE | 2019-04-20 11:02 | PN ---
Progress Note, [employer] - Note Progress Note: Pt tolerated [place] speaking valve for first time yesterday for 2 1/2 hours , speaking to family,stadd, palliative care nurse. PMV not used yet this morning. Suggest daily use, increasing time throughout the day. Pt may need to use and then take breaks, putting it on again, as tolerated. Pt was able to cough and expectorate phlegm yesterday. PMV hattie enable communication, improve upper airway function, swallowing function and expedite weaning from vemtilator. MBS on 04/22, once PMV used daily
[2019-04-20] MEDS ORDERED: MULTIVITAMINS (DAILY MVI) TABLET (FP) PO SCH (11:30)
[2019-04-20] MEDS ORDERED: MULTIVIT-MINERALS ORAL LIQUID GT SCH (11:45)
--- NOTE | 2019-04-20 11:46 | PN ---
Physical Exam: SUBJECTIVE: Patient seen and examined 1 episode of non-bloody emesis yesterdAY no bloody stools reported OBJECTIVE: Vital Signs Period Temp Pulse Resp BP Sys/Kang Pulse Ox Last 24 Hr 96.8 F-97.9 F 93-144 04-20 103-142/68-106 98-100 GENERAL: The patient is awake and alert. HEAD: Normal with no signs of trauma. EYES: PERRL, extraocular movements intact, sclera anicteric, conjunctiva clear. No ptosis. ENT: Ears normal, nares patent, oropharynx clear without exudates, moist mucous membranes. NECK: trach +vent LUNGS: +rhonchi HEART: Regular rate and rhythm, S1, S2 without murmur, rub or gallop. ABDOMEN: mildly distended. BS+ no tenderness to palpation EXTREMITIES: 1+ peripheral pulses, warm, +edema bilaterally NEUROLOGICAL: Cranial nerves II through XII grossly intact. PSYCH: Normal mood, normal affect. SKIN: Warm, dry, multiple areas of ecchymosis (since admission) Laboratory Results - last 24 hr 04/16/19 04/16/19 04/19/19 05:30 05:30 16:56 WBC RBC Hgb Hct MCV MCH MCHC RDW Plt Count MPV Fibrin Degrad Products 5 H Sodium Potassium Chloride Carbon Dioxide Anion Gap BUN Creatinine Est GFR (CKD-EPI)AfAm Est GFR (CKD-EPI)NonAf POC Glucometer 94 Random Glucose Calcium Phosphorus Magnesium Total Bilirubin AST ALT Alkaline Phosphatase Total Protein Albumin Random Vancomycin Blood Type O NEGATIVE Antibody Screen Negative Crossmatch See Detail 04/19/19 04/20/19 04/20/19 21:53 05:51 06:00 WBC RBC Hgb Hct MCV MCH MCHC RDW Plt Count MPV Fibrin Degrad Products Sodium Potassium Chloride Carbon Dioxide Anion Gap BUN Creatinine Est GFR (CKD-EPI)AfAm Est GFR (CKD-EPI)NonAf POC Glucometer 96 76 Random Glucose Calcium Phosphorus Magnesium Total Bilirubin AST ALT Alkaline Phosphatase Total Protein Albumin Random Vancomycin 18.9 Blood Type Antibody Screen Crossmatch 04/20/19 04/20/19 06:00 06:00 WBC 15.4 H RBC 3.03 L Hgb 9.1 L Hct 28.2 L MCV 93.3 MCH 30.1 MCHC 32.2 RDW 20.0 H Plt Count 177 MPV 9.2 Fibrin Degrad Products Sodium 143 Potassium 3.7 Chloride 114 H Carbon Dioxide 22 Anion Gap 8 BUN 36.8 H Creatinine 1.7 H Est GFR (CKD-EPI)AfAm 42.58 Est GFR (CKD-EPI)NonAf 36.74 POC Glucometer Random Glucose 77 Calcium 7.3 L Phosphorus 3.3 Magnesium 1.8 Total Bilirubin 0.8 AST 19 ALT 14 Alkaline Phosphatase 111 Total Protein 6.2 L Albumin 1.2 L Random Vancomycin Blood Type Antibody Screen Crossmatch Active Medications Generic Name Dose Route Start Last Admin Trade Name Freq PRN Reason Stop Dose Admin Artificial Tears 1 drop 04/18/19 22:00 04/19/19 21:56 Artificial Tears OU 1 drop QID [facility] Administration Diltiazem HCl 5 mg 04/17/19 09:40 04/18/19 11:35 Cardizem Injection - IVPUSH 5 mg Q4H PRN Administration TACHYCARDIA Diltiazem HCl 30 mg 04/19/19 12:00 04/20/19 05:54 Cardizem - PO 30 mg Q6HPO [facility] Administration Escitalopram Oxalate 20 mg 04/18/19 10:00 04/20/19 09:05 Lexapro - PO 20 mg DAILY [facility] Administration Ferrous Sulfate 300 mg 04/18/19 10:00 04/20/19 09:05 Feosol GT 300 mg BID [facility] Administration Finasteride 5 mg 04/18/19 10:00 04/20/19 09:05 Proscar - PO 5 mg DAILY [facility] Administration Piperacillin Sod/Tazobactam 50 mls @ 100 mls/hr 04/17/19 10:45 04/20/19 09:05 Sod 3.375 gm/ Dextrose IVPB 100 mls/hr Q8H-IV [facility] Administration Protocol Insulin Aspart 1 vial 04/09/19 11:00 04/20/19 06:07 Novolog Vial Sliding Scale - SQ Not Given ACHS [facility] Protocol Metoprolol Tartrate 50 mg 04/02/19 01:00 04/20/19 05:54 Lopressor - PEG 50 mg Q6HPO [facility] Administration Metoprolol Tartrate 5 mg 04/14/19 13:38 04/20/19 02:40 Lopressor Injection - IVPUSH 5 mg Q4H PRN Administration HYPERTENSION Metoprolol Tartrate 10 mg 04/14/19 13:38 04/15/19 23:01 Lopressor Injection - IVPUSH 10 mg Q4H PRN Administration TACHYCARDIA Multivitamins/Minerals/Vitamin C 1 tab 04/20/19 11:30 Tab-A-Vit - PO DAILY [facility] Ondansetron HCl 4 mg 04/06/19 02:10 Zofran Injection IVPUSH Q6H PRN NAUSEA AND/OR VOMITING Pantoprazole Sodium 40 mg 04/19/19 10:00 04/20/19 09:05 Protonix Iv IVPUSH 40 mg BID [facility] Administration Potassium Chloride 20 meq 04/19/19 10:00 04/20/19 09:05 Potassium Chloride Oral Liquid PO 20 meq DAILY [facility] Administration Sodium Chloride 3 ml 04/02/19 02:23 04/10/19 04:00 Normal Saline For Inhalation - IH 3 ml Q6H PRN Administration COUGH ASSESSMENT/PLAN: 83 M with PMH of CABG, ESRD with b/l nephrosotomy tubes, PNA, chronic respiratory failure s/p trach, PEG tube, DM, anemia who is under ICU management for tachycardia 2/2 to ongoing GI bleed. Neuro -Alert can follow commands Cardiovascular -Hx of CABG, Afib. -Tachycardic, likely in setting of GI bleed - episode of A.flutter with RVR requiring cardizem IV -continue on cardizem PO for rate control -Echo recommended by cardiology Pulm -Tracheostomy to vent; -Sputum culture + for MRSA -Continue antibiotics GI -repeat EGD from 04/16 showed clotted blood in the fundus and no evidence of bleeding site or ulcer -CTA a/p: moderate ascites and renal cysts S/p paracentesis for ascitic fluid -per GI d/c octreotide. give protonix 40mg IV -Zofran prn -GI recommends abdominal x-ray to evaluate for SBO and CT with oral contrast through G-tube if x-ray is positive. Endocrine -Patient has hx of DM -ISS -BGMS ACHS Heme -current Hb 9.1 -maintain Hgb above 8 -trend H&H; transfusion threshold <8 Renal -Cr 1.7 the same as yesterday - Give fluids (LR) -d/c Lisinopril ID -Sputum + MRSA, urine cx + Klebsiella ESBL -gentamicin treatment completed. -Continue Vanc/Zosyn-- f/u vanc trough -Continue contact isolation for CRE -ID following patient PPX -SCD's; hold chemical AC in setting of GI bleed F: d/c LR E: trend CMP replete lytes prn N: enteral feeds resumed #Dispo transfer to med-surg Visit type - Emergency Visit Emergency Visit: Yes ED Registration Date: 03/31/19 Care time: The patient presented to the Emergency Department on the above date and was hospitalized for further evaluation of their emergent condition. - New Patient This patient is new to me today: No - Critical Care Critical Care patient: No - Discharge Referral Referred to [facility] Med [facility] No ATTENDING PHYSICIAN STATEMENT I saw and evaluated the patient. I reviewed the resident's note and discussed the case with the resident. I agree with the resident's findings and plan as documented. SUBJECTIVE: OBJECTIVE: ASSESSMENT AND PLAN:
[2019-04-20] MEDS: ARTIFICIAL TEARS (POLYVINYL ALCOHOL) OPTH DROPS OU SCH ×4 (12:18→21:12)
--- NOTE | 2019-04-20 12:33 | PN.GI ---
GI Progress Note Subjective: No bleeding reported Vomiting yesterday with 300cc residual reported. Tube feeds held No evidence of gastric outlet obstruction on the two upper endoscopies that he had - Objective Vital Signs: Vital Signs Temperature 97.5 F L 04/20/19 09:58 Pulse Rate 88 04/20/19 12:09 Respiratory Rate 26 H 04/20/19 12:09 Blood Pressure 120/75 04/20/19 12:09 O2 Sat by Pulse Oximetry (%) 100 04/20/19 10:00 Constitutional: Calm Eyes: No: Sclera Icterus Cardiovascular: Yes: Regular Rate and Rhythm Respiratory: Yes: Diminished (at bases bilaterally) Gastrointestinal Inspection: Yes: Distention ...Auscultate: Yes: Normoactive Bowel Sounds ...Palpate: No: Tenderness ...Percussion: Yes: Tympanitic (Mild tympany. G tube removed from toomy syringe. Some air expelled from tube. bilious residual in tube.) Edema: Yes Neurological: Yes: Alert Labs: CBC, BMP 04/20/19 06:00 04/20/19 06:00 INR, PTT INR 1.43 (0.83-1.09) H 04/18/19 05:20 Fibrinogen 295.0 mg/dL (238-498) 04/16/19 05:30 Problem List - Problems (1) Melena Assessment/Plan: No further bleeding Protonix 40mg IVPB daily Code(s): K92.1 - MELENA (2) Vomiting Assessment/Plan: Ordered FUA to evaluate for ileus / SBO pattern. If so, repeat CT scan of the abdomen with PO contrast through G-Tube to assess further If no evidence of obstruction, trial of reglan 5mg IVPB q 8 hours for 4 doses if no contraindication Code(s): R11.10 - VOMITING, UNSPECIFIED
--- NOTE | 2019-04-20 13:29 | ECHO ---
Version: 1 Name: TOMI BUSTOS Exam: Adult Echocardiogram Study Date: 04/20/2019, 11:14 AM Age: 83 Years MMode/2D Measurements & Calculations IVSd: 1.53 cm LVIDs: 3.1 cm LVIDd: 4.0 cm LVPWd: 0.97 cm ACS: 1.00 cm Ao root diam: 4.7 cm LA dimension: 4.5 cm Doppler Measurements & Calculations Lat Peak E' Hawk: 9.8 cm/sec Med Peak E' Hawk: 6.8 cm/sec MR max P.4 mmHg Ao max P.3 mmHg LV V1 mean: 39.4 cm/sec Ao mean P.6 mmHg LV V1 mean P.72 mmHg Ao V2 max: 135.0 cm/sec AI P1/2t: 563.5 msec PI end-d hawk: 122.2 cm/sec TR max hawk: 304.4 cm/sec TR max P.1 mmHg Procedure Images were not obtained from all of the standard acoustic windows due to the limited scope of the s tudy. Left Ventricle The left ventricular size, thickness and function are normal. Ejection Fraction = 55%. Right Ventricle The right ventricle is normal in size and function. Atria The left atrium is moderately dilated. The right atrium is moderately dilated. Mitral Valve There is moderate mitral annular calcification. There is mild mitral regurgitation. Tricuspid Valve The tricuspid valve is not well visualized, but is grossly normal. There is mild tricuspid regurgita tion. Aortic Valve There is moderate to severe aortic sclerosis.;. Pulmonic Valve The pulmonic valve is not well visualized. Great Vessels Mild aortic root dilatation. Moderately dilated ascending aorta. Pericardium/Pleura There is no pericardial effusion. Summary Statements Images were not obtained from all of the standard acoustic windows due to the limited scope of the s tudy. The left ventricular size, thickness and function are normal Ejection Fraction = 55%. The right ventricle is normal in size and function. The left atrium is moderately dilated. The right atrium is moderately dilated. There is moderate mitral annular calcification. There is mild mitral regurgitation. The tricuspid valve is not well visualized, but is grossly normal. There is mild tricuspid regurgitation. There is moderate to severe aortic sclerosis.; The pulmonic valve is not well visualized. Mild aortic root dilatation. Moderately dilated ascending aorta. There is no pericardial effusion. Wesley Donald 04/20/2019, 1:29 PM Ordering Physician: Lynette Martinez I Performed By: Fannie Phillips
--- NOTE | 2019-04-20 13:50 | PN ---
Progress Note (short form) - Note Progress Note: alert trach to vent day #14 zosyn no melena noted Vital Signs Period Temp Pulse Resp BP Sys/Kang Pulse Ox Last 24 Hr 96.8 F-97.9 F 88-144 12- 103-142/68-106 98-100 cor-rrr llungs decreased bs at bases abd soft,nt +GT ext multiple skin tears and ecchymoses CBC, BMP 04/20/19 06:00 04/20/19 06:00 Microbiology 04/13/19 13:50 Stool Clostridioides difficile Antigen - Final 04/13/19 13:50 Stool Clostridioides difficile Toxin Assay - Final 04/06/19 19:30 Blood - Peripheral Venous Blood Culture - Final NO GROWTH AFTER 5 DAYS INCUBATION 04/06/19 19:30 Blood - Peripheral Venous Blood Culture - Final NO GROWTH AFTER 5 DAYS INCUBATION 04/08/19 07:50 Sputum - Endotrachea Suction/Ventilator Gram Stain - Final 04/08/19 07:50 Sputum - Endotrachea Suction/Ventilator Sputum Culture - Final Pseudomonas Aeruginosa Mr S Aureus 04/02/19 14:54 Peritoneal Fluid Gram Stain - Final 04/02/19 14:54 Peritoneal Fluid Body Fluid Culture - Final NO GROWTH OF AEROBIC ORGANISMS AFTER 48 HOURS INCUBATION 04/02/19 14:54 Peritoneal Fluid Anaerobic Culture - Final NO ANAEROBES WERE ISOLATED 04/02/19 14:54 Peritoneal Fluid AFB Smear Concentration - Preliminary 04/02/19 14:54 Peritoneal Fluid Mycobacterial Culture - Preliminary 03/31/19 01:27 Blood - Peripheral Venous Blood Culture - Final NO GROWTH AFTER 5 DAYS INCUBATION 03/31/19 01:27 Blood - Peripheral Venous Blood Culture - Final NO GROWTH AFTER 5 DAYS INCUBATION 04/02/19 14:54 Peritoneal Fluid ROB Preparation - Preliminary 04/02/19 14:54 Peritoneal Fluid Fungal Culture - Preliminary 03/31/19 02:17 Urine - Urine Nephrostomy Tube Left Urine Culture - Final Klebsiella Pneumoniae - Esbl a/p GI bleed- per GI chronic respiratory failure ?aspiration pneumonia ?aspiration, 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
[2019-04-20] MEDS ORDERED: LACTATED RINGERS SOLUTION 1,000 ML/1,000 ML INFUS.BAG IV SCH (19:15)
[2019-04-21] MEDS ORDERED: dilTIAZem HCL 50 MG/10 ML - 10 ML VIAL IVPUSH PRN (01:16)
[2019-04-21] MEDS ORDERED: ONDANSETRON 4 MG/2 ML VIAL IVPUSH PRN (01:16)
[2019-04-21] MEDS ORDERED: METOPROLOL TARTRATE 5 MG/5 ML VIAL IVPUSH PRN ×2 (01:16)
[2019-04-21] MEDS: METOPROLOL TARTRATE 50 MG TABLET (FP) PEG SCH ×4 (06:37→23:08)
[2019-04-21] MEDS: dilTIAZem HCL 30 MG TABLET (FP) PO SCH ×5 (06:37→23:08)
[2019-04-21] MEDS: INSULIN SLIDING SCALE (NOVOLOG) 1 VIAL SQ SCH ×4 (06:46→23:01)
[2019-04-21 09:03] LABS: BASO % 0.4 % (0-2.0); EOS % 1.1 % (0-4.5); HEMATOCRIT 27.9 % (35.4-49); HEMOGLOBIN 8.9 GM/dL (11.7-16.9); LYMPH % 4.7 % (8-40); MCH 30.1 pg (25.7-33.7); MCHC 32.1 g/dl (32.0-35.9); MEAN CELL VOLUME 93.8 fl (80-96); MEAN PLT VOLUME 9.3 fl (7.5-11.1); MONO % 5.7 % (3.8-10.2); NEUT % 88.1 % (42.8-82.8); PLATELET COUNT 195 K/MM3 (134-434); RBC 2.97 M/mm3 (4.00-5.60); RDW 19.6 % (11.9-15.9); WHITE BLOOD COUNT 12.1 K/mm3 (4.0-10.0)
[2019-04-21 09:21] LABS: ALBUMIN 1.2 g/dl (3.4-5.0); BILIRUBIN,TOTAL 0.9 mg/dL (0.2-1); BLOOD UREA NITROGEN 38.6 mg/dL (7-18); CALCIUM 7.5 mg/dL (8.5-10.1); CREATININE 1.8 mg/dL (0.55-1.3); MAGNESIUM 1.8 mg/dL (1.8-2.4); PHOSPHOROUS 3.4 mg/dL (2.5-4.9); POTASSIUM 3.6 mmol/L (3.5-5.1); TOT PROT 6.3 g/dl (6.4-8.2)
[2019-04-21] MEDS ORDERED: ESCITALOPRAM OXALATE 20 MG TABLET PO SCH (10:00)
[2019-04-21] MEDS ORDERED: PT OWN MED DRAWER 7, Y5N ONE (10:13)
[2019-04-21] MEDS: FERROUS SO4 300 MG/5 ML ORAL SOLN UNIT DOSE CUPS GT SCH ×2 (10:42→22:58)
[2019-04-21] MEDS: PANTOPRAZOLE SODIUM 40 MG VIAL IVPUSH SCH (10:43)
[2019-04-21] MEDS: POTASSIUM CHLORIDE ORAL LIQUID 20 MEQ/15 ML PO SCH (10:43)
[2019-04-21] MEDS: FINASTERIDE 5 MG TABLET (FP) PO SCH (10:43)
[2019-04-21] MEDS: ARTIFICIAL TEARS (POLYVINYL ALCOHOL) OPTH DROPS OU SCH ×4 (10:44→22:58)
--- NOTE | 2019-04-21 11:52 | PN ---
Progress Note (short form) - Note Progress Note: Vented. Awake on AC Mode. No fevers recorded. No acute events overnight. Intake & Output 04/18/19 04/19/19 04/20/19 04/21/19 23:59 23:59 23:59 23:59 Intake Total 1154 3270.5 2745 750 Output Total 400 195 450 Balance 754 3075.5 2295 750 Weight 218 lb 214 lb 8.156 oz 222 lb 9 oz Last Vital Signs Temp Pulse Resp BP Pulse Ox 98.9 F 99 H 20 115/68 99 04/21/19 10:00 04/21/19 10:00 04/21/19 10:00 04/21/19 10:00 04/21/19 09:00 Active Medications Artificial Tears (Artificial Tears) 1 drop OU QID [facility] Last Admin: 04/21/19 10:44 Dose: 1 drop Diltiazem HCl (Cardizem -) 30 mg PO Q6HPO [facility] Last Admin: 04/21/19 06:37 Dose: 30 mg Diltiazem HCl (Cardizem Injection -) 5 mg IVPUSH Q4H PRN PRN Reason: TACHYCARDIA Escitalopram Oxalate (Lexapro -) 20 mg PO DAILY [facility] Last Admin: 04/21/19 10:43 Dose: 20 mg Ferrous Sulfate (Feosol) 300 mg GT BID [facility] Last Admin: 04/21/19 10:42 Dose: 300 mg Finasteride (Proscar -) 5 mg PO DAILY [facility] Last Admin: 04/21/19 10:43 Dose: 5 mg Insulin Aspart (Novolog Vial Sliding Scale -) 1 vial SQ [facility]; Protocol Last Admin: 04/21/19 11:18 Dose: Not Given Metoprolol Tartrate (Lopressor -) 50 mg PEG Q6HPO [facility] Last Admin: 04/21/19 06:37 Dose: 50 mg Metoprolol Tartrate (Lopressor Injection -) 5 mg IVPUSH Q4H PRN PRN Reason: HYPERTENSION Metoprolol Tartrate (Lopressor Injection -) 10 mg IVPUSH Q4H PRN PRN Reason: TACHYCARDIA Multivitamins/Minerals (Certavite-Antioxidant Liquid) 15 ml PEG DAILY [facility] Ondansetron HCl (Zofran Injection) 4 mg IVPUSH Q6H PRN PRN Reason: NAUSEA AND/OR VOMITING Pantoprazole Sodium (Protonix Iv) 40 mg IVPUSH DAILY [facility] Last Admin: 04/21/19 10:43 Dose: 40 mg Potassium Chloride (Potassium Chloride Oral Liquid) 20 meq PO DAILY [facility] Last Admin: 04/21/19 10:43 Dose: 20 meq Sodium Chloride (Normal Saline For Inhalation -) 3 ml IH Q6H PRN PRN Reason: COUGH Gen: vented, awake Heart: RRR Lung: decreased breath sounds at the bases Abd: soft, nontender Ext: + edema Laboratory Results - last 24 hr 04/20/19 04/20/19 04/20/19 12:07 17:26 21:15 WBC RBC Hgb Hct MCV MCH MCHC RDW Plt Count MPV Absolute Neuts (auto) Neutrophils % Lymphocytes % Monocytes % Eosinophils % Basophils % Nucleated RBC % Sodium Potassium Chloride Carbon Dioxide Anion Gap BUN Creatinine Est GFR (CKD-EPI)AfAm Est GFR (CKD-EPI)NonAf POC Glucometer 110 97 99 Random Glucose Calcium Phosphorus Magnesium Total Bilirubin AST ALT Alkaline Phosphatase Total Protein Albumin 04/21/19 04/21/19 04/21/19 06:40 06:45 06:45 WBC 12.1 H RBC 2.97 L Hgb 8.9 L Hct 27.9 L MCV 93.8 MCH 30.1 MCHC 32.1 RDW 19.6 H Plt Count 195 MPV 9.3 Absolute Neuts (auto) 10.6 H Neutrophils % 88.1 H Lymphocytes % 4.7 L D Monocytes % 5.7 Eosinophils % 1.1 Basophils % 0.4 Nucleated RBC % 0 Sodium 147 H Potassium 3.6 Chloride 116 H Carbon Dioxide 21 Anion Gap 10 BUN 38.6 H Creatinine 1.8 H Est GFR (CKD-EPI)AfAm 39.74 Est GFR (CKD-EPI)NonAf 34.29 POC Glucometer 90 Random Glucose 80 Calcium 7.5 L Phosphorus 3.4 Magnesium 1.8 Total Bilirubin 0.9 AST 19 ALT 15 Alkaline Phosphatase 106 Total Protein 6.3 L Albumin 1.2 L 04/21/19 11:13 WBC RBC Hgb Hct MCV MCH MCHC RDW Plt Count MPV Absolute Neuts (auto) Neutrophils % Lymphocytes % Monocytes % Eosinophils % Basophils % Nucleated RBC % Sodium Potassium Chloride Carbon Dioxide Anion Gap BUN Creatinine Est GFR (CKD-EPI)AfAm Est GFR (CKD-EPI)NonAf POC Glucometer 90 Random Glucose Calcium Phosphorus Magnesium Total Bilirubin AST ALT Alkaline Phosphatase Total Protein Albumin A/P Acute on Chronic Respiratory Failure Suspected UTI/Pneumonia/Sepsis Lactic Acidosis Atrial Flutter with RVR Anemia CAD s/p CABG COPD HTN Hyperlipidemia Ascites - Off ABX Per ID - protonix - monitor H/H - Rate control - enteral feeds as tolerated - DVT/GI prophylaxis Dr Castro
[2019-04-21] MEDS ORDERED: METOCLOPRAMIDE HCL INJECTION 10 MG/2 ML VIAL IVPB PRN (11:59)
--- NOTE | 2019-04-21 12:12 | PN.GI ---
GI Progress Note Subjective: Patient examined No acute events CT scan failed to reveal SBO No vomiting overnight - Objective Vital Signs: Vital Signs Temperature 98.9 F 04/21/19 10:00 Pulse Rate 99 H 04/21/19 10:00 Respiratory Rate 28 H 04/21/19 11:54 Blood Pressure 115/68 04/21/19 10:00 O2 Sat by Pulse Oximetry (%) 99 04/21/19 09:00 Constitutional: Calm Eyes: No: Sclera Icterus Cardiovascular: Yes: Tachycardia Respiratory: Yes: Diminished (at bases bilaterally) Gastrointestinal Inspection: Yes: Distention (protuberant abdomen), Other ...Auscultate: Yes: Normoactive Bowel Sounds ...Palpate: Yes: Soft, Splenomegaly. No: Hepatomegaly, Tenderness ...Percussion: No: Tympanitic Edema: Yes Labs: CBC, BMP 04/21/19 06:45 04/21/19 06:45 INR, PTT INR 1.43 (0.83-1.09) H 04/18/19 05:20 Fibrinogen 295.0 mg/dL (238-498) 04/16/19 05:30 Hepatic Panel Total Bilirubin 0.9 mg/dL (0.2-1) 04/21/19 06:45 AST 19 U/L (15-37) 04/21/19 06:45 ALT 15 U/L (13-61) 04/21/19 06:45 Alkaline Phosphatase 106 U/L (45-117) 04/21/19 06:45 Albumin 1.2 g/dl (3.4-5.0) L 04/21/19 06:45 Problem List - Problems (1) Melena Assessment/Plan: No further bleeding. Bilious output from PEG Code(s): K92.1 - MELENA (2) Vomiting Assessment/Plan: Suctioned PEG out today, about 200cc bilious drainage. No SBO on CT scan. Ordered reglan 5mg IVPB q 8 hours, stopped SSRI while on reglan Resume low rate feeds Correction of lytes and fluid management per PMD Code(s): R11.10 - VOMITING, UNSPECIFIED
--- NOTE | 2019-04-21 14:20 | PN ---
Progress Note, Physician History of Present Illness: pt seen and examined today in nad. mechanically ventilated, alert, able to respond to questions. no new complaints. - Current Medication List Current Medications: Active Medications Artificial Tears (Artificial Tears) 1 drop OU QID [facility] Last Admin: 04/21/19 10:44 Dose: 1 drop Diltiazem HCl (Cardizem -) 30 mg PO Q6HPO [facility] Last Admin: 04/21/19 06:37 Dose: 30 mg Diltiazem HCl (Cardizem Injection -) 5 mg IVPUSH Q4H PRN PRN Reason: TACHYCARDIA Ferrous Sulfate (Feosol) 300 mg GT BID [facility] Last Admin: 04/21/19 10:42 Dose: 300 mg Finasteride (Proscar -) 5 mg PO DAILY [facility] Last Admin: 04/21/19 10:43 Dose: 5 mg Insulin Aspart (Novolog Vial Sliding Scale -) 1 vial SQ ACHS [facility]; Protocol Last Admin: 04/21/19 11:18 Dose: Not Given Metoclopramide HCl (Reglan Injection -) 5 mg IVPB Q8H PRN PRN Reason: NAUSEA AND/OR VOMITING Metoprolol Tartrate (Lopressor -) 50 mg PEG Q6HPO [facility] Last Admin: 04/21/19 06:37 Dose: 50 mg Metoprolol Tartrate (Lopressor Injection -) 5 mg IVPUSH Q4H PRN PRN Reason: HYPERTENSION Metoprolol Tartrate (Lopressor Injection -) 10 mg IVPUSH Q4H PRN PRN Reason: TACHYCARDIA Multivitamins/Minerals (Certavite-Antioxidant Liquid) 15 ml PEG DAILY [facility] Ondansetron HCl (Zofran Injection) 4 mg IVPUSH Q6H PRN PRN Reason: NAUSEA AND/OR VOMITING Pantoprazole Sodium (Protonix Iv) 40 mg IVPUSH DAILY [facility] Last Admin: 04/21/19 10:43 Dose: 40 mg Potassium Chloride (Potassium Chloride Oral Liquid) 20 meq PO DAILY [facility] Last Admin: 04/21/19 10:43 Dose: 20 meq Sodium Chloride (Normal Saline For Inhalation -) 3 ml IH Q6H PRN PRN Reason: COUGH - Objective Vital Signs: Vital Signs Temperature 98.9 F 04/21/19 10:00 Pulse Rate 99 H 04/21/19 10:00 Respiratory Rate 28 H 01/01/20 11:54 Blood Pressure 115/68 01/01/20 10:00 O2 Sat by Pulse Oximetry (%) 99 04/21/19 09:00 Constitutional: Yes: No Distress, Calm Eyes: Yes: Conjunctiva Clear, EOM Intact Cardiovascular: Yes: Regular Rate and Rhythm, S1, S2. No: Bradycardia, Tachycardia, Pulse Irregular, Bruit, JVD, Gallop, Murmur, Rub, S3, S4, Varicosities Respiratory: Yes: Regular, Diminished, Mechanically Ventilated. No: Rales, Rhonchi, SOB, Wheezes Gastrointestinal: Yes: Normal Bowel Sounds Edema: No Neurological: Yes: Alert Psychiatric: Yes: Alert Labs: CBC, BMP 04/21/19 06:45 04/21/19 06:45 INR, PTT INR 1.43 (0.83-1.09) H 04/18/19 05:20 Fibrinogen 295.0 mg/dL (238-498) 04/16/19 05:30 - ....Imaging Chest X-ray: Report Reviewed, Image Reviewed EKG: Report Reviewed, Image Reviewed Other: Report Reviewed, Image Reviewed Assessment/Plan 83 year old male with a PMHx of HTN, DM, CAD s/p CABG, ESRD, COPD, prostate cancer, s/p radiation, and s/p trach/vent/peg admitted from [facility] for coffee ground emesis. EGD 04/16/19 showed no source of active bleeding. But clotted blood seen in fundus. EKG: atach/flutter with VR 136bpm, NIVCD CT chest/abd/pelvis: Bilateral pleural effusions, consolidation, moderate to large ascites 4.6cm Throacic anuerysm Arrhythmia-aflutter vs atach -HR has remained adequately controlled on current regimen -cont current meds with diltiazem and metoprolol via PEG at current doses -not a candidate for AC due to bleed -echo 04/20/19 showed normal LVEF, mild valvular abnl, and stable moderately dilated TAA -BP adequately controlled No additional inpatient cardiac work up is needed at this time. Will see as needed. Please call with any questions.
[2019-04-21] MEDS: MULTIVIT-MINERALS ORAL LIQUID PEG SCH (14:35)
--- NOTE | 2019-04-21 14:46 | PN ---
Progress Note, Physician Chief Complaint: AWAKE, SEEN IN [facility] [place] PATIENT IS COMMUNICATING WITH WRITING AND HEAD GESTURES. EVENTS AND NOTES REVIEWED - Current Medication List Current Medications: Active Medications Artificial Tears (Artificial Tears) 1 drop OU QID [facility] Last Admin: 04/21/19 14:35 Dose: 1 drop Diltiazem HCl (Cardizem -) 30 mg PO Q6HPO [facility] Last Admin: 04/21/19 14:35 Dose: 30 mg Diltiazem HCl (Cardizem Injection -) 5 mg IVPUSH Q4H PRN PRN Reason: TACHYCARDIA Ferrous Sulfate (Feosol) 300 mg GT BID [facility] Last Admin: 04/21/19 10:42 Dose: 300 mg Finasteride (Proscar -) 5 mg PO DAILY [facility] Last Admin: 04/21/19 10:43 Dose: 5 mg Insulin Aspart (Novolog Vial Sliding Scale -) 1 vial SQ [facility]; Protocol Last Admin: 04/21/19 11:18 Dose: Not Given Metoclopramide HCl (Reglan Injection -) 5 mg IVPB Q8H PRN PRN Reason: NAUSEA AND/OR VOMITING Metoprolol Tartrate (Lopressor -) 50 mg PEG Q6HPO [facility] Last Admin: 04/21/19 14:34 Dose: 50 mg Metoprolol Tartrate (Lopressor Injection -) 5 mg IVPUSH Q4H PRN PRN Reason: HYPERTENSION Metoprolol Tartrate (Lopressor Injection -) 10 mg IVPUSH Q4H PRN PRN Reason: TACHYCARDIA Multivitamins/Minerals (Certavite-Antioxidant Liquid) 15 ml PEG DAILY [facility] Last Admin: 04/21/19 14:35 Dose: Not Given Ondansetron HCl (Zofran Injection) 4 mg IVPUSH Q6H PRN PRN Reason: NAUSEA AND/OR VOMITING Pantoprazole Sodium (Protonix Iv) 40 mg IVPUSH DAILY [facility] Last Admin: 04/21/19 10:43 Dose: 40 mg Potassium Chloride (Potassium Chloride Oral Liquid) 20 meq PO DAILY [facility] Last Admin: 04/21/19 10:43 Dose: 20 meq Sodium Chloride (Normal Saline For Inhalation -) 3 ml IH Q6H PRN PRN Reason: COUGH - Objective Vital Signs: Vital Signs Temperature 98.9 F 04/21/19 10:00 Pulse Rate 99 H 04/21/19 10:00 Respiratory Rate 28 H 04/21/19 11:54 Blood Pressure 115/68 04/21/19 10:00 O2 Sat by Pulse Oximetry (%) 99 04/21/19 09:00 Constitutional: Yes: Mild Distress Cardiovascular: Yes: Pulse Irregular Respiratory: Yes: Mechanically Ventilated Gastrointestinal: Yes: Soft Genitourinary: Yes: Huber Present Integumentary: Yes: Bruising, Erythema, Petechiae Wound/Incision: Yes: Dressing Dry and Intact Neurological: Yes: Pre-Existing Deficit Labs: CBC, BMP 04/21/19 06:45 04/21/19 06:45 INR, PTT INR 1.43 (0.83-1.09) H 04/18/19 05:20 Fibrinogen 295.0 mg/dL (238-498) 04/16/19 05:30 Problem List - Problems (1) Acute and chronic respiratory failure Code(s): J96.20 - ACUTE AND CHR RESP FAILURE, UNSP W HYPOXIA OR HYPERCAPNIA (2) Anemia Code(s): D64.9 - ANEMIA, UNSPECIFIED (3) COPD (chronic obstructive pulmonary disease) Code(s): J44.9 - CHRONIC OBSTRUCTIVE PULMONARY DISEASE, UNSPECIFIED (4) Coffee ground emesis Code(s): K92.0 - HEMATEMESIS (5) Diabetes mellitus Code(s): E11.9 - TYPE 2 DIABETES MELLITUS WITHOUT COMPLICATIONS (6) ESRD (end stage renal disease) Code(s): N18.6 - END STAGE RENAL DISEASE (7) GI bleed Code(s): K92.2 - GASTROINTESTINAL HEMORRHAGE, UNSPECIFIED (8) HLD (hyperlipidemia) Code(s): E78.5 - HYPERLIPIDEMIA, UNSPECIFIED (9) HTN (hypertension) Code(s): I10 - ESSENTIAL (PRIMARY) HYPERTENSION (10) Sepsis Code(s): A41.9 - SEPSIS, UNSPECIFIED ORGANISM (11) Status post tracheostomy Code(s): Z93.0 - TRACHEOSTOMY STATUS (12) Atrial flutter Code(s): I48.92 - UNSPECIFIED ATRIAL FLUTTER Assessment/Plan PEG FUNCTIONING TUBE FEEDS RESTARTED TODAY DECREASE H20 VIA PEG TO 25CC/HR MEDS CHANGED TO PEG IV ABX PRESSURE SUPPORT VENT SUPPORT VIA TRACHEOSTOMY LABS REVIEWED CARDIZEM/LOPRESSOR PEG FOR RATE CONTROL FAMILY TO DISCUSS WITH PALLIATIVE CARE AND PATIENT ABOUT ADVANCED DIRECTIVES.
[2019-04-22] MEDS: METOPROLOL TARTRATE 50 MG TABLET (FP) PEG SCH ×3 (06:10→18:12)
[2019-04-22] MEDS: dilTIAZem HCL 30 MG TABLET (FP) PO SCH ×3 (06:10→18:11)
[2019-04-22] MEDS: INSULIN SLIDING SCALE (NOVOLOG) 1 VIAL SQ SCH ×4 (06:10→21:49)
[2019-04-22] MEDS ORDERED: INSULIN (NOVOLOG) ASPART 100 UNITS/ML 10ML VIAL ONE ×2 (06:37→20:53)
[2019-04-22] MEDS ORDERED: INSULIN (LEVEMIR) 100 UNITS/ML UNITS SQ ONE (06:37)
[2019-04-22 08:05] LABS: HEMATOCRIT 28.3 % (35.4-49); HEMOGLOBIN 9.2 GM/dL (11.7-16.9); MCH 30.5 pg (25.7-33.7); MCHC 32.4 g/dl (32.0-35.9); MEAN CELL VOLUME 94.1 fl (80-96); MEAN PLT VOLUME 9.1 fl (7.5-11.1); PLATELET COUNT 220 K/MM3 (134-434); RBC 3.01 M/mm3 (4.00-5.60); RDW 20.3 % (11.9-15.9); WHITE BLOOD COUNT 14.7 K/mm3 (4.0-10.0)
[2019-04-22 08:30] LABS: BLOOD UREA NITROGEN 39.4 mg/dL (7-18); CALCIUM 7.7 mg/dL (8.5-10.1); CREATININE 1.9 mg/dL (0.55-1.3); POTASSIUM 3.6 mmol/L (3.5-5.1)
[2019-04-22] MEDS: PANTOPRAZOLE SODIUM 40 MG VIAL IVPUSH SCH (10:34)
[2019-04-22] MEDS: FINASTERIDE 5 MG TABLET (FP) PO SCH (10:34)
[2019-04-22] MEDS: POTASSIUM CHLORIDE ORAL LIQUID 20 MEQ/15 ML PO SCH (10:34)
[2019-04-22] MEDS: FERROUS SO4 300 MG/5 ML ORAL SOLN UNIT DOSE CUPS GT SCH ×2 (10:34→21:49)
[2019-04-22] MEDS: ARTIFICIAL TEARS (POLYVINYL ALCOHOL) OPTH DROPS OU SCH ×4 (10:36→21:48)
--- NOTE | 2019-04-22 11:10 | PN ---
Progress Note, Physician Chief Complaint: Acute on Chronic Respiratory Failure UTI Ascites History of Present Illness: mechanical vent H/H stable returned from EGD- source of bleeding still unidentifiable + melena/hematochezia Family frustrated of not being able to understand the source of emerging chronic and acute issues, mainly bleeding Has had bleeding from bladder in the past at [facility]-records reviewed Had rectal bleed in 04/2018, went to [facility] in [place], await records Awaiting records from [facility] and [facility] 04/22/18: Awake and alert Started on reglan SSRI discontinued due to interaction PEG residual 50 cc this AM - Current Medication List Current Medications: Active Medications Artificial Tears (Artificial Tears) 1 drop OU QID [facility] Last Admin: 04/22/19 10:36 Dose: 1 drop Diltiazem HCl (Cardizem -) 30 mg PO Q6HPO [facility] Last Admin: 04/22/19 06:10 Dose: 30 mg Diltiazem HCl (Cardizem Injection -) 5 mg IVPUSH Q4H PRN PRN Reason: TACHYCARDIA Ferrous Sulfate (Feosol) 300 mg GT BID [facility] Last Admin: 04/22/19 10:34 Dose: 300 mg Finasteride (Proscar -) 5 mg PO DAILY [facility] Last Admin: 04/22/19 10:34 Dose: 5 mg Insulin Aspart (Novolog Vial Sliding Scale -) 1 vial SQ ACHS [facility]; Protocol Last Admin: 04/22/19 06:10 Dose: Not Given Metoclopramide HCl (Reglan Injection -) 5 mg IVPB Q8H PRN PRN Reason: NAUSEA AND/OR VOMITING Metoprolol Tartrate (Lopressor -) 50 mg PEG Q6HPO [facility] Last Admin: 04/22/19 06:10 Dose: 50 mg Metoprolol Tartrate (Lopressor Injection -) 5 mg IVPUSH Q4H PRN PRN Reason: HYPERTENSION Metoprolol Tartrate (Lopressor Injection -) 10 mg IVPUSH Q4H PRN PRN Reason: TACHYCARDIA Multivitamins/Minerals (Certavite-Antioxidant Liquid) 15 ml PEG DAILY [facility] Last Admin: 04/21/19 14:35 Dose: Not Given Ondansetron HCl (Zofran Injection) 4 mg IVPUSH Q6H PRN PRN Reason: NAUSEA AND/OR VOMITING Pantoprazole Sodium (Protonix Iv) 40 mg IVPUSH DAILY [facility] Last Admin: 04/22/19 10:34 Dose: 40 mg Potassium Chloride (Potassium Chloride Oral Liquid) 20 meq PO DAILY [facility] Last Admin: 04/22/19 10:34 Dose: 20 meq Sodium Chloride (Normal Saline For Inhalation -) 3 ml IH Q6H PRN PRN Reason: COUGH - Objective Vital Signs: Vital Signs Temperature 97.9 F 04/22/19 06:00 Pulse Rate 96 H 04/22/19 06:00 Respiratory Rate 23 H 04/22/19 08:14 Blood Pressure 106/64 04/22/19 06:00 O2 Sat by Pulse Oximetry (%) 98 04/22/19 01:06 Constitutional: Yes: Well Nourished, No Distress, Calm Cardiovascular: Yes: Regular Rate and Rhythm Respiratory: Yes: Regular Gastrointestinal: Yes: Normal Bowel Sounds, Soft Genitourinary: Yes: Huber Present Musculoskeletal: Yes: Muscle Weakness Extremities: Yes: WNL Edema: Yes Edema: LUE: 2+, RUE: 2+ Peripheral Pulses WNL: Yes Integumentary: Yes: Pressure Ulcer (Stage 4 sacral ulcer) Wound/Incision: Yes: Dressing Dry and Intact Neurological: Yes: Alert, Oriented Psychiatric: Yes: Alert, Oriented Labs: CBC, BMP 04/22/19 06:45 04/22/19 06:45 INR, PTT INR 1.43 (0.83-1.09) H 04/18/19 05:20 Fibrinogen 295.0 mg/dL (238-498) 04/16/19 05:30 Problem List - Problems (1) PÉREZ (acute kidney injury) Assessment/Plan: -Nephrology consult -monitor trend Problems reviewed: Yes Code(s): N17.9 - ACUTE KIDNEY FAILURE, UNSPECIFIED Assessment/Plan (1) Acute and chronic respiratory failure Assessment/Plan: -Pulm on board -Mechanically Ventilated -keep SpO2 >90% -CXR shows cardiomegaly, left basilar compressive atelectasis, left pleural effusion, right pleural effusion -Sputum Culture positive for MRSA -Encourage use of passy berta valve daily Code(s): J96.20 - ACUTE AND CHR RESP FAILURE, UNSP W HYPOXIA OR HYPERCAPNIA (2) Anemia Assessment/Plan: -monitor Hg daily and transfuse for Hg <7.0 to avoid fluid overload -GI and Hematology on board Code(s): D64.9 - ANEMIA, UNSPECIFIED (3) Atrial flutter Assessment/Plan: -Metoprolol and Cardizem -Cardiology on board -Rate controlled now Code(s): I48.92 - UNSPECIFIED ATRIAL FLUTTER (4) COPD (chronic obstructive pulmonary disease) Assessment/Plan: -Pulm on board -Mechanically Ventilated -keep SpO2 >90% Code(s): J44.9 - CHRONIC OBSTRUCTIVE PULMONARY DISEASE, UNSPECIFIED (5) Diabetes mellitus Assessment/Plan: -BGM ACHS -ISS Code(s): E11.9 - TYPE 2 DIABETES MELLITUS WITHOUT COMPLICATIONS (6) GI bleed Assessment/Plan: -GI on board -Pantoprazole IVP daily -EGD-unable to identify the source of bleeding -CT Abd/pelvis was negative for SBO Code(s): K92.2 - GASTROINTESTINAL HEMORRHAGE, UNSPECIFIED (7) HTN (hypertension) Assessment/Plan: -Metoprolol + Cardizem Code(s): I10 - ESSENTIAL (PRIMARY) HYPERTENSION (8) SBO (small bowel obstruction) Assessment/Plan: -CTAP shows no evidence of bowel obstruction -GI on board Code(s): K56.609 - UNSP INTESTNL OBST, UNSP TO PARTIAL VERSUS COMPLETE OBST (9) Ascites Assessment/Plan: -s/p paracentesis tis admission -Ascites Fluid specimen noted albumin 1.8 with elevated globulins, 2+ proteinuria, macrocytic anemia raise suspicion for hematologic malingnancy -Hematology on board Code(s): R18.8 - OTHER ASCITES (10) Sepsis Assessment/Plan: -ID on board -Leukocytosis -afebrile -Sputum Culture positive for MRSA -BC neg -UC positive ESBL, Klebsiella -Completed course of Zosyn -Off IV abx Code(s): A41.9 - SEPSIS, UNSPECIFIED ORGANISM Assessment/Plan see problem list dvt ppx
--- NOTE | 2019-04-22 11:11 | PN ---
Progress Note (short form) - Note Progress Note: PULMONARY Vented, awake. No fevers recorded. Vital Signs Period Temp Pulse Resp BP Sys/Kang Pulse Ox Last 24 Hr 97.3 F-98.1 F 88-96 17-28 96-133/61-72 98-100 Gen: vented, awake Heart: RRR Lung: decreased breath sounds at the bases Abd: soft, nontender Ext: + edema CBC, BMP 04/22/19 06:45 04/22/19 06:45 Active Medications Artificial Tears (Artificial Tears) 1 drop OU QID [facility] Last Admin: 04/22/19 10:36 Dose: 1 drop Diltiazem HCl (Cardizem -) 30 mg PO Q6HPO [facility] Last Admin: 04/22/19 06:10 Dose: 30 mg Diltiazem HCl (Cardizem Injection -) 5 mg IVPUSH Q4H PRN PRN Reason: TACHYCARDIA Ferrous Sulfate (Feosol) 300 mg GT BID [facility] Last Admin: 04/22/19 10:34 Dose: 300 mg Finasteride (Proscar -) 5 mg PO DAILY [facility] Last Admin: 04/22/19 10:34 Dose: 5 mg Insulin Aspart (Novolog Vial Sliding Scale -) 1 vial SQ ACHS [facility]; Protocol Last Admin: 04/22/19 06:10 Dose: Not Given Metoclopramide HCl (Reglan Injection -) 5 mg IVPB Q8H PRN PRN Reason: NAUSEA AND/OR VOMITING Metoprolol Tartrate (Lopressor -) 50 mg PEG Q6HPO [facility] Last Admin: 04/22/19 06:10 Dose: 50 mg Metoprolol Tartrate (Lopressor Injection -) 5 mg IVPUSH Q4H PRN PRN Reason: HYPERTENSION Metoprolol Tartrate (Lopressor Injection -) 10 mg IVPUSH Q4H PRN PRN Reason: TACHYCARDIA Multivitamins/Minerals (Certavite-Antioxidant Liquid) 15 ml PEG DAILY [facility] Last Admin: 04/21/19 14:35 Dose: Not Given Ondansetron HCl (Zofran Injection) 4 mg IVPUSH Q6H PRN PRN Reason: NAUSEA AND/OR VOMITING Pantoprazole Sodium (Protonix Iv) 40 mg IVPUSH DAILY [facility] Last Admin: 04/22/19 10:34 Dose: 40 mg Potassium Chloride (Potassium Chloride Oral Liquid) 20 meq PO DAILY [facility] Last Admin: 04/22/19 10:34 Dose: 20 meq Sodium Chloride (Normal Saline For Inhalation -) 3 ml IH Q6H PRN PRN Reason: COUGH A/P Chronic Respiratory Failure UTI/Pneumonia/Sepsis Lactic Acidosis Atrial Flutter with RVR Anemia CAD s/p CABG COPD HTN Hyperlipidemia Ascites - completed antibiotics - protonix - monitor H/H - rate control - enteral feeds as tolerated - DVT/GI prophylaxis
--- NOTE | 2019-04-22 12:02 | CONSULT ---
Consult - text type - Consultation Consultation Note: Renal consult for acute kidney injury This is a 83 year old gentleman with history of respiratory failure on vent via trach, prostate cancer s/p radiation therapy, CAD s/p CABG, hypertension, DM who presented [place] with coffee ground emesis who has developed acute kidney injury during the hospital admission. Cr on admission was 1.1 and now has peaked to 1.9. s/p contrast exposure on 04/15 for CTA. Also noted to have slight hypotension during that same time period as well. no other nephrotoxic exposures noted. Making urine via penis > nephrostomy tubes. CT done on 04-20 showed no hydronephrosis. Pt is awake and alert but not able to provide history. PMHx: as above Allergies: NKDA Family Hx: [place] Social Hx: No T/A/D ROS: unable to obtain because of clinical status Home Medications Medication Instructions Recorded Acetaminophen 325 mg PO BID 03/31/19 Cyanocobalamin Vit B-12 Inj. 1,000 mcg IM DAILY 03/31/19 [Redisol] Diltiazem [Cardizem -] 30 mg PO QID 03/31/19 Escitalopram Oxalate [Lexapro -] 20 mg PO ONCE 03/31/19 Ferrous Sulfate [Feosol] 300 mg GT ONCE 03/31/19 Finasteride 5 mg PO DAILY 03/31/19 Insulin Lispro [Humalog] 100 unit SQ DAILY 03/31/19 Latanoprost/Pf [Latanoprost 0.005% 7.5 ml OP ONCE 03/31/19 Eye Drop] Lisinopril 5 mg PO ONCE 03/31/19 Metoprolol Tartrate 50 mg PO Q6H 03/31/19 Risperidone 0.5 mg PO TID 03/31/19 Vital Signs Temperature 97.9 F 04/22/19 06:00 Pulse Rate 96 H 04/22/19 06:00 Respiratory Rate 23 H 04/22/19 08:14 Blood Pressure 106/64 04/22/19 06:00 O2 Sat by Pulse Oximetry (%) 98 04/22/19 01:06 Intake & Output 04/19/19 04/20/19 04/21/19 04/22/19 23:59 23:59 23:59 23:59 Intake Total 3270.5 2745 750 Output Total 195 450 Balance 3075.5 2295 750 Weight 97.3 kg 100.953 kg NAD awake and alert neck supple RRR CTA soft NT/ND + upper and lower extremity edema CBC, BMP 04/22/19 06:45 04/22/19 06:45 Current Medications Artificial Tears (Artificial Tears) 1 drop OU QID [facility] Last Admin: 04/22/19 10:36 Dose: 1 drop Diltiazem HCl (Cardizem -) 30 mg PO Q6HPO [facility] Last Admin: 04/22/19 06:10 Dose: 30 mg Diltiazem HCl (Cardizem Injection -) 5 mg IVPUSH Q4H PRN PRN Reason: TACHYCARDIA Ferrous Sulfate (Feosol) 300 mg GT BID [facility] Last Admin: 04/22/19 10:34 Dose: 300 mg Finasteride (Proscar -) 5 mg PO DAILY [facility] Last Admin: 04/22/19 10:34 Dose: 5 mg Insulin Aspart (Novolog Vial Sliding Scale -) 1 vial SQ ACHS [facility]; Protocol Last Admin: 04/22/19 06:10 Dose: Not Given Metoclopramide HCl (Reglan Injection -) 5 mg IVPB Q8H PRN PRN Reason: NAUSEA AND/OR VOMITING Metoprolol Tartrate (Lopressor -) 50 mg PEG Q6HPO [facility] Last Admin: 04/22/19 06:10 Dose: 50 mg Metoprolol Tartrate (Lopressor Injection -) 5 mg IVPUSH Q4H PRN PRN Reason: HYPERTENSION Metoprolol Tartrate (Lopressor Injection -) 10 mg IVPUSH Q4H PRN PRN Reason: TACHYCARDIA Multivitamins/Minerals (Certavite-Antioxidant Liquid) 15 ml PEG DAILY [facility] Last Admin: 04/21/19 14:35 Dose: Not Given Ondansetron HCl (Zofran Injection) 4 mg IVPUSH Q6H PRN PRN Reason: NAUSEA AND/OR VOMITING Pantoprazole Sodium (Protonix Iv) 40 mg IVPUSH DAILY [facility] Last Admin: 04/22/19 10:34 Dose: 40 mg Potassium Chloride (Potassium Chloride Oral Liquid) 20 meq PO DAILY [facility] Last Admin: 04/22/19 10:34 Dose: 20 meq Sodium Chloride (Normal Saline For Inhalation -) 3 ml IH Q6H PRN PRN Reason: COUGH 83 year old gentleman with history of respiratory failure on vent via trach, prostate cancer s/p radiation therapy, CAD s/p CABG, hypertension, DM who presented [place] with coffee ground emesis who has developed acute kidney injury during the hospital admission. 1. Acute kidney injury secondary to pre-renal injury vs. contrast nephropathy vs. obstructive nephropathy vs. AIN 2. Hypernatremia 3. Acute on chornic anemia with suspected GI bleed 4. Chronic respiratory failure on vent 5. Leukocytoiss 6. BPH/Prostate cancer Check urine studies for FeNa, UPCR, Eosinophils No need for Renal US as CT of Abd/Pelvis from 04-20 showed no obstruction Would not start IVF given volume overload restart oral feeds and free water when possible if Renal function stable can start low dose diuretics to mange edema continue proscar continue vent support Trend H/H, no acute indication for transfusion Thank you Andrew Finney DO
--- NOTE | 2019-04-22 12:40 | PN ---
Progress Note, [employer] - Note Progress Note: Selected Entries 04/21/19 04/21/19 04/21/19 06:00 10:00 15:14 Supper NPO Temperature 98.5 F 98.9 F 97.7 F 04/21/19 04/21/19 04/21/19 17:30 18:00 22:00 Supper NPO Temperature 97.4 F L 97.3 F L 04/22/19 04/22/19 04/22/19 02:00 06:00 10:00 Supper Temperature 98.1 F 97.9 F 98 F Laboratory Tests 04/18/19 04/19/19 04/20/19 05:20 07:30 06:00 WBC 23.7 H 17.9 H 15.4 H 04/21/19 04/22/19 06:45 06:45 WBC 12.1 H 14.7 H Pt tolerated PMV for 2+ hours on 04/19 and . PMV only used for 5 min yesterday with RR documented as 44. I wonder if PEEP was turned off? Vent recycles with PEEP on with PMV, wich results in artificial reading of rapid RR. Was pt SOB? PMV not placed yet today. Discussed with today's RR who will attempt PMV again. Plan is for daily PMV, as tolerated, increasing time thropughout the day. MBS
[2019-04-22] MEDS: MULTIVIT-MINERALS ORAL LIQUID PEG SCH (14:00)
[2019-04-22 15:26] LABS: EPI CELLS 13.3 /HPF (0-5/HPF); HYALINE CASTS 61 /lpf (0-8); URINE APPEARANCE TURBID; URINE BACTERIA 207.6 /hpf (NEGATIVE); URINE BILIRUBIN NEGATIVE (NEGATIVE); URINE COLOR YELLOW; URINE GLUCOSE (UA) NEGATIVE (NEGATIVE); URINE KETONE NEGATIVE (NEGATIVE); URINE LEUK ESTERASE 3+ (NEGATIVE); URINE NITRITE NEGATIVE (NEGATIVE); URINE PROTEIN 2+ (NEGATIVE); URINE UROBILINOGEN 0.2 mg/dL (0.2-1.0); URINE WBC 2939 /hpf (0-5)
[2019-04-22] MEDS: SODIUM CHLORIDE FOR INHALATION 3 ML VIAL.NEB IH PRN (22:10)
[2019-04-23] MEDS: METOPROLOL TARTRATE 50 MG TABLET (FP) PEG SCH ×5 (00:06→23:04)
[2019-04-23] MEDS: dilTIAZem HCL 30 MG TABLET (FP) PO SCH ×5 (00:06→23:04)
[2019-04-23] MEDS: INSULIN SLIDING SCALE (NOVOLOG) 1 VIAL SQ SCH ×4 (06:40→23:13)
[2019-04-23 06:58] LABS: HEMATOCRIT 28.1 % (35.4-49); HEMOGLOBIN 9.1 GM/dL (11.7-16.9); MCH 30.5 pg (25.7-33.7); MCHC 32.2 g/dl (32.0-35.9); MEAN CELL VOLUME 94.6 fl (80-96); PLATELET COUNT 210 K/MM3 (134-434); RBC 2.97 M/mm3 (4.00-5.60); RDW 21.9 % (11.9-15.9); WHITE BLOOD COUNT 13.8 K/mm3 (4.0-10.0)
[2019-04-23 08:08] LABS: MAGNESIUM 1.8 mg/dL (1.8-2.4); PHOSPHOROUS 3.9 mg/dL (2.5-4.9)
--- NOTE | 2019-04-23 09:00 | PN ---
Progress Note, Physician - Current Medication List Current Medications: Active Medications Artificial Tears (Artificial Tears) 1 drop OU QID [facility] Last Admin: 04/22/19 21:48 Dose: 1 drop Diltiazem HCl (Cardizem -) 30 mg PO Q6HPO [facility] Last Admin: 04/23/19 06:40 Dose: 30 mg Diltiazem HCl (Cardizem Injection -) 5 mg IVPUSH Q4H PRN PRN Reason: TACHYCARDIA Ferrous Sulfate (Feosol) 300 mg GT BID [facility] Last Admin: 04/22/19 21:49 Dose: 300 mg Finasteride (Proscar -) 5 mg PO DAILY [facility] Last Admin: 04/22/19 10:34 Dose: 5 mg Insulin Aspart (Novolog Vial Sliding Scale -) 1 vial SQ [facility]; Protocol Last Admin: 04/23/19 06:40 Dose: Not Given Metoclopramide HCl (Reglan Injection -) 5 mg IVPB Q8H PRN PRN Reason: NAUSEA AND/OR VOMITING Metoprolol Tartrate (Lopressor -) 50 mg PEG Q6HPO [facility] Last Admin: 04/23/19 06:40 Dose: 50 mg Metoprolol Tartrate (Lopressor Injection -) 5 mg IVPUSH Q4H PRN PRN Reason: HYPERTENSION Metoprolol Tartrate (Lopressor Injection -) 10 mg IVPUSH Q4H PRN PRN Reason: TACHYCARDIA Multivitamins/Minerals (Certavite-Antioxidant Liquid) 15 ml PEG DAILY [facility] Last Admin: 04/22/19 14:00 Dose: 15 ml Ondansetron HCl (Zofran Injection) 4 mg IVPUSH Q6H PRN PRN Reason: NAUSEA AND/OR VOMITING Pantoprazole Sodium (Protonix Iv) 40 mg IVPUSH DAILY [facility] Last Admin: 04/22/19 10:34 Dose: 40 mg Potassium Chloride (Potassium Chloride Oral Liquid) 20 meq PO DAILY [facility] Last Admin: 04/22/19 10:34 Dose: 20 meq Sodium Chloride (Normal Saline For Inhalation -) 3 ml IH Q6H PRN PRN Reason: COUGH Last Admin: 04/22/19 22:10 Dose: 3 ml - Objective Vital Signs: Vital Signs Temperature 97.9 F 04/23/19 06:51 Pulse Rate 90 04/23/19 06:51 Respiratory Rate 31 H 04/23/19 08:07 Blood Pressure 110/65 04/23/19 06:51 O2 Sat by Pulse Oximetry (%) 100 04/22/19 21:00 Cardiovascular: Yes: Pulse Irregular, S1, S2 Respiratory: Yes: Mechanically Ventilated Gastrointestinal: Yes: Normal Bowel Sounds, Soft Labs: CBC, BMP 04/23/19 06:30 INR, PTT INR 1.43 (0.83-1.09) H 04/18/19 05:20 Fibrinogen 295.0 mg/dL (238-498) 04/16/19 05:30 Problem List - Problems (1) Ascites Code(s): R18.8 - OTHER ASCITES (2) Anemia Code(s): D64.9 - ANEMIA, UNSPECIFIED (3) Sepsis Code(s): A41.9 - SEPSIS, UNSPECIFIED ORGANISM (4) Acute and chronic respiratory failure Code(s): J96.20 - ACUTE AND CHR RESP FAILURE, UNSP W HYPOXIA OR HYPERCAPNIA (5) COPD (chronic obstructive pulmonary disease) Code(s): J44.9 - CHRONIC OBSTRUCTIVE PULMONARY DISEASE, UNSPECIFIED (6) Diabetes mellitus Code(s): E11.9 - TYPE 2 DIABETES MELLITUS WITHOUT COMPLICATIONS (7) HTN (hypertension) Code(s): I10 - ESSENTIAL (PRIMARY) HYPERTENSION (8) Atrial flutter Code(s): I48.92 - UNSPECIFIED ATRIAL FLUTTER (9) SBO (small bowel obstruction) Code(s): K56.609 - UNSP INTESTNL OBST, UNSP TO PARTIAL VERSUS COMPLETE OBST Assessment/Plan - Problems (1) PÉREZ (acute kidney injury) Assessment/Plan: -Nephrology consult -monitor trend Problems reviewed: Yes Code(s): N17.9 - ACUTE KIDNEY FAILURE, UNSPECIFIED Assessment/Plan (1) Acute and chronic respiratory failure Assessment/Plan: -Pulm on board -Mechanically Ventilated -keep SpO2 >90% -CXR shows cardiomegaly, left basilar compressive atelectasis, left pleural effusion, right pleural effusion -Sputum Culture positive for MRSA -Encourage use of passy berta valve daily Code(s): J96.20 - ACUTE AND CHR RESP FAILURE, UNSP W HYPOXIA OR HYPERCAPNIA (2) Anemia Assessment/Plan: -monitor Hg daily and transfuse for Hg <7.0 to avoid fluid overload -GI and Hematology on board Code(s): D64.9 - ANEMIA, UNSPECIFIED (3) Atrial flutter Assessment/Plan: -Metoprolol and Cardizem -Cardiology on board -Rate controlled now Code(s): I48.92 - UNSPECIFIED ATRIAL FLUTTER (4) COPD (chronic obstructive pulmonary disease) Assessment/Plan: -Pulm on board -Mechanically Ventilated -keep SpO2 >90% Code(s): J44.9 - CHRONIC OBSTRUCTIVE PULMONARY DISEASE, UNSPECIFIED (5) Diabetes mellitus Assessment/Plan: -BGM ACHS -ISS Code(s): E11.9 - TYPE 2 DIABETES MELLITUS WITHOUT COMPLICATIONS (6) GI bleed Assessment/Plan: -GI on board -Pantoprazole IVP daily -EGD-unable to identify the source of bleeding -CT Abd/pelvis was negative for SBO Code(s): K92.2 - GASTROINTESTINAL HEMORRHAGE, UNSPECIFIED (7) HTN (hypertension) Assessment/Plan: -Metoprolol + Cardizem Code(s): I10 - ESSENTIAL (PRIMARY) HYPERTENSION (8) SBO (small bowel obstruction) Assessment/Plan: -CTAP shows no evidence of bowel obstruction -GI on board Code(s): K56.609 - UNSP INTESTNL OBST, UNSP TO PARTIAL VERSUS COMPLETE OBST (9) Ascites Assessment/Plan: -s/p paracentesis tis admission -Ascites Fluid specimen noted albumin 1.8 with elevated globulins, 2+ proteinuria, macrocytic anemia raise suspicion for hematologic malingnancy -Hematology on board Code(s): R18.8 - OTHER ASCITES (10) Sepsis Assessment/Plan: -ID on board -Leukocytosis -afebrile -Sputum Culture positive for MRSA -BC neg -UC positive ESBL, Klebsiella -Completed course of Zosyn -Off IV abx Code(s): A41.9 - SEPSIS, UNSPECIFIED ORGANISM
[2019-04-23 09:13] LABS: BLOOD UREA NITROGEN 38.2 mg/dL (7-18); CALCIUM 7.4 mg/dL (8.5-10.1); POTASSIUM 3.6 mmol/L (3.5-5.1)
[2019-04-23] MEDS: FERROUS SO4 300 MG/5 ML ORAL SOLN UNIT DOSE CUPS GT SCH ×2 (11:26→23:04)
[2019-04-23] MEDS: FINASTERIDE 5 MG TABLET (FP) PO SCH (11:26)
[2019-04-23] MEDS: POTASSIUM CHLORIDE ORAL LIQUID 20 MEQ/15 ML PO SCH (11:26)
[2019-04-23] MEDS: PANTOPRAZOLE SODIUM 40 MG VIAL IVPUSH SCH (11:27)
[2019-04-23] MEDS: ARTIFICIAL TEARS (POLYVINYL ALCOHOL) OPTH DROPS OU SCH ×4 (11:28→23:03)
--- NOTE | 2019-04-23 12:18 | PN ---
Progress Note, [employer]OCIATE - Note Progress Note: PMV tolerated for over 3 hours yesterday per report, Vomited today. PMV/MBS deferred.
--- NOTE | 2019-04-23 13:17 | PN ---
Progress Note (short form) - Note Progress Note: PULMONARY 12/400/40/5 mvv a/c mode Vented, awake. Afebrile VSS Gen: vented, awake Heart: RRR Lung: decreased breath sounds at the bases Abd: soft, nontender Ext: + edema meds/notes/images/micro noted A/P Chronic Respiratory Failure UTI/Pneumonia/Sepsis Lactic Acidosis Atrial Flutter with RVR Anemia CAD s/p CABG COPD HTN Hyperlipidemia Ascites - completed antibiotics - protonix - monitor H/H - rate control - enteral feeds as tolerated - DVT/GI prophylaxis Homar MCLEOD MD
[2019-04-23] MEDS: MULTIVIT-MINERALS ORAL LIQUID PEG SCH (13:41)
--- NOTE | 2019-04-23 14:45 | PN ---
Progress Note (short form) - Note Progress Note: Renal follow up for ÉPREZ Seen and examined at the bedside awake and alert no overnight events Vital Signs Temperature 98.1 F 04/23/19 10:00 Pulse Rate 92 H 04/23/19 10:00 Respiratory Rate 23 H 04/23/19 12:25 Blood Pressure 117/69 04/23/19 10:00 O2 Sat by Pulse Oximetry (%) 100 04/22/19 21:00 Intake & Output 04/20/19 04/21/19 04/22/19 04/23/19 23:59 23:59 23:59 23:59 Intake Total 2745 750 450 0 Output Total 450 100 75 Balance 2295 750 350 -75 Weight 100.953 kg NAD awake and alert neck supple RRR CTA soft NT/ND + upper and lower extremity edema CBC, BMP 04/23/19 06:30 04/23/19 08:25 Current Medications Artificial Tears (Artificial Tears) 1 drop OU QID [facility] Last Admin: 04/23/19 13:54 Dose: 1 drop Diltiazem HCl (Cardizem -) 30 mg PO Q6HPO [facility] Last Admin: 04/23/19 13:55 Dose: 30 mg Diltiazem HCl (Cardizem Injection -) 5 mg IVPUSH Q4H PRN PRN Reason: TACHYCARDIA Ferrous Sulfate (Feosol) 300 mg GT BID [facility] Last Admin: 04/23/19 11:26 Dose: 300 mg Finasteride (Proscar -) 5 mg PO DAILY [facility] Last Admin: 04/23/19 11:26 Dose: 5 mg Insulin Aspart (Novolog Vial Sliding Scale -) 1 vial SQ [facility]; Protocol Last Admin: 04/23/19 13:41 Dose: Not Given Metoclopramide HCl (Reglan Injection -) 5 mg IVPB Q8H PRN PRN Reason: NAUSEA AND/OR VOMITING Metoprolol Tartrate (Lopressor -) 50 mg PEG Q6HPO [facility] Last Admin: 04/23/19 11:26 Dose: 50 mg Metoprolol Tartrate (Lopressor Injection -) 5 mg IVPUSH Q4H PRN PRN Reason: HYPERTENSION Metoprolol Tartrate (Lopressor Injection -) 10 mg IVPUSH Q4H PRN PRN Reason: TACHYCARDIA Multivitamins/Minerals (Certavite-Antioxidant Liquid) 15 ml PEG DAILY [facility] Last Admin: 04/23/19 13:41 Dose: 15 ml Ondansetron HCl (Zofran Injection) 4 mg IVPUSH Q6H PRN PRN Reason: NAUSEA AND/OR VOMITING Pantoprazole Sodium (Protonix Iv) 40 mg IVPUSH DAILY [facility] Last Admin: 04/23/19 11:27 Dose: 40 mg Potassium Chloride (Potassium Chloride Oral Liquid) 20 meq PO DAILY [facility] Last Admin: 04/23/19 11:26 Dose: 20 meq Sodium Chloride (Normal Saline For Inhalation -) 3 ml IH Q6H PRN PRN Reason: COUGH Last Admin: 04/22/19 22:10 Dose: 3 ml 83 year old gentleman with history of respiratory failure on vent via trach, prostate cancer s/p radiation therapy, CAD s/p CABG, hypertension, DM who [place] with coffee ground emesis who has developed acute kidney injury during the hospital admission. 1. Acute kidney injury secondary to pre-renal injury vs. contrast nephropathy 2. Hypernatremia 3. Acute on chornic anemia with suspected GI bleed 4. Chronic respiratory failure on vent 5. Leukocytoiss 6. BPH/Prostate cancer Urine studies show FeNa of 0.6% consistent with pre-renal vs. contrast nephropathy. Pt remains total body volume overloaded, defer IVF for now. No need for Renal US as CT of Abd/Pelvis from - showed no obstruction restart oral feeds and free water when possible may need to consider starting diuretics in nexst 24-48 hour for edema management. continue proscar continue vent support Thank you Andrew Finney DO
[2019-04-23 20:47] LABS: BASO % 0.4 % (0-2.0); HEMATOCRIT 28.4 % (35.4-49); LYMPH % 5.5 % (8-40); MCH 30.4 pg (25.7-33.7); MCHC 31.5 g/dl (32.0-35.9); MEAN CELL VOLUME 96.3 fl (80-96); MEAN PLT VOLUME 8.9 fl (7.5-11.1); MONO % 5.8 % (3.8-10.2); NEUT % 87.3 % (42.8-82.8); PLATELET COUNT 206 K/MM3 (134-434); RBC 2.95 M/mm3 (4.00-5.60); RDW 21.7 % (11.9-15.9)
[2019-04-23 21:32] LABS: ANISOCYTOSIS 1+
--- NOTE | 2019-04-23 21:59 | HOSP ---
Subjective - Review of Symptoms Events since last encounter: Hospitalist Encounter Was notified by the RN that the patient had an episode of coffee ground emesis noted on the patient's gown at 16:00 today. Per the RN the tube feeding was stopped, Pt placed on NPO. GI was paged, the PMD was made aware, the RN is awaiting a call back from GI. The night RN had concern's regarding patient's BB medication being given IV on M/S floor. Advised the RN to page the covering GI regarding resuming medications via PEG since patient has had no further episodes of coffee ground emesis. Subjective: Arrived to bedside, patient is alert and oriented to baseline, trach on ventilator, not in any acute respiratory distress. Patient denied any complaints via mouthing NO. PE performed see EMR. Per RN, Dr Hall called back and patient can have meds via PEG. Plan: Hold Tube Feedings, per GI recommendation Continue meds via Peg Continue current regimen Gastrointestinal: Yes: Vomiting (coffee ground emesis) Physical Examination Vital Signs: Vital Signs Temperature 98.3 F 04/23/19 18:00 Pulse Rate 90 04/23/19 20:41 Respiratory Rate 23 H 04/23/19 20:40 Blood Pressure 140/81 04/23/19 18:00 O2 Sat by Pulse Oximetry (%) 100 04/23/19 20:41 Constitutional: Yes: No Distress, Calm Eyes: Yes: Conjunctiva Clear, PERRL HENT: Yes: WNL, Atraumatic, Normocephalic Neck: Yes: Supple (trach- vent dependent), Other Cardiovascular: Yes: Pulse Irregular, S1, S2 (trach vent) Respiratory: Yes: Diminished, Other (trach- vent dependent) Gastrointestinal: Yes: Normal Bowel Sounds, Soft, Abdomen, Obese Renal/: Yes: Huber Present Breast(s): Yes: WNL Edema: Yes Integumentary: Yes: Pressure Ulcer, Rash Wound/Incision: Yes: Open to air Neurological: Yes: Alert, Confusion Psychiatric: Yes: Alert Labs: CBC, BMP 04/23/19 20:31 04/23/19 08:25
[2019-04-24] MEDS: INSULIN SLIDING SCALE (NOVOLOG) 1 VIAL SQ SCH ×4 (06:37→23:19)
[2019-04-24] MEDS: METOPROLOL TARTRATE 50 MG TABLET (FP) PEG SCH ×4 (06:44→23:44)
[2019-04-24] MEDS: dilTIAZem HCL 30 MG TABLET (FP) PO SCH ×4 (06:44→23:43)
[2019-04-24] MEDS ORDERED: PT OWN MED DRAWER 7, Y5N ONE ×3 (06:50→21:29)
[2019-04-24 09:05] LABS: ALBUMIN 1.2 g/dl (3.4-5.0); BILIRUBIN,TOTAL 1.3 mg/dL (0.2-1); BLOOD UREA NITROGEN 39.1 mg/dL (7-18); CALCIUM 7.5 mg/dL (8.5-10.1); CREATININE 2.1 mg/dL (0.55-1.3); MAGNESIUM 1.8 mg/dL (1.8-2.4); PHOSPHOROUS 3.8 mg/dL (2.5-4.9); TOT PROT 6.7 g/dl (6.4-8.2)
[2019-04-24] MEDS: POTASSIUM CHLORIDE ORAL LIQUID 20 MEQ/15 ML PO SCH (10:37)
[2019-04-24] MEDS: MULTIVIT-MINERALS ORAL LIQUID PEG SCH (10:37)
[2019-04-24] MEDS: FERROUS SO4 300 MG/5 ML ORAL SOLN UNIT DOSE CUPS GT SCH (10:37)
[2019-04-24] MEDS: PANTOPRAZOLE SODIUM 40 MG VIAL IVPUSH SCH (10:38)
[2019-04-24] MEDS: FINASTERIDE 5 MG TABLET (FP) PO SCH (10:38)
[2019-04-24] MEDS: ARTIFICIAL TEARS (POLYVINYL ALCOHOL) OPTH DROPS OU SCH ×4 (10:39→21:34)
[2019-04-24] MEDS ORDERED: SODIUM CHLORIDE 250 ML IV ONE (10:45)
[2019-04-24] MEDS ORDERED: FUROSEMIDE 40 MG/4 ML INJECTABLE VIAL IVPUSH ONE (10:53)
--- NOTE | 2019-04-24 10:58 | PN ---
Progress Note (short form) - Note Progress Note: Renal follow up for PÉREZ Seen and examined at the bedside awake and alert note to have coffree ground emesis last night respiratory status stable making urine from penis, not much from nephrosotmy tubes Vital Signs Temperature 97.4 F L 04/24/19 10:00 Pulse Rate 91 H 04/24/19 10:00 Respiratory Rate 22 H 04/24/19 10:00 Blood Pressure 103/63 04/24/19 10:00 O2 Sat by Pulse Oximetry (%) 100 04/23/19 21:00 Intake & Output 04/21/19 04/22/19 04/23/19 04/24/19 23:59 23:59 23:59 23:59 Intake Total 750 450 0 Output Total 100 875 Balance 750 350 -875 NAD awake and alert neck supple RRR CTA soft NT/ND + upper and lower extremity edema CBC, BMP 04/23/19 20:31 04/24/19 05:55 Current Medications Artificial Tears (Artificial Tears) 1 drop OU QID [facility] Last Admin: 04/24/19 10:39 Dose: 1 drop Diltiazem HCl (Cardizem -) 30 mg PO Q6HPO [facility] Last Admin: 04/24/19 06:44 Dose: 30 mg Diltiazem HCl (Cardizem Injection -) 5 mg IVPUSH Q4H PRN PRN Reason: TACHYCARDIA Ferrous Sulfate (Feosol) 300 mg GT BID [facility] Last Admin: 04/24/19 10:37 Dose: 300 mg Finasteride (Proscar -) 5 mg PO DAILY [facility] Last Admin: 04/24/19 10:38 Dose: 5 mg Furosemide (Lasix Injection -) 40 mg IVPUSH ONCE ONE Stop: 04/24/19 10:54 Sodium Chloride (Normal Saline -) 250 mls @ 250 mls/hr IV ONCE ONE Stop: 04/24/19 11:44 Dextrose/Sodium Chloride (D5-Ns -) 1,000 mls @ 80 mls/hr IV [facility] Insulin Aspart (Novolog Vial Sliding Scale -) 1 vial SQ ACHS [facility]; Protocol Last Admin: 04/24/19 06:37 Dose: Not Given Metoclopramide HCl (Reglan Injection -) 5 mg IVPB Q8H PRN PRN Reason: NAUSEA AND/OR VOMITING Metoprolol Tartrate (Lopressor -) 50 mg PEG Q6HPO [facility] Last Admin: 04/24/19 06:44 Dose: 50 mg Metoprolol Tartrate (Lopressor Injection -) 5 mg IVPUSH Q4H PRN PRN Reason: HYPERTENSION Metoprolol Tartrate (Lopressor Injection -) 10 mg IVPUSH Q4H PRN PRN Reason: TACHYCARDIA Multivitamins/Minerals (Certavite-Antioxidant Liquid) 15 ml PEG DAILY [facility] Last Admin: 04/24/19 10:37 Dose: 15 ml Ondansetron HCl (Zofran Injection) 4 mg IVPUSH Q6H PRN PRN Reason: NAUSEA AND/OR VOMITING Pantoprazole Sodium (Protonix Iv) 40 mg IVPUSH DAILY [facility] Last Admin: 04/24/19 10:38 Dose: 40 mg Potassium Chloride (Potassium Chloride Oral Liquid) 20 meq PO DAILY [facility] Last Admin: 04/24/19 10:37 Dose: 20 meq Sodium Bicarbonate (Sodium Bicarbonate -) 650 mg GT DAILY [facility] Sodium Chloride (Normal Saline For Inhalation -) 3 ml IH Q6H PRN PRN Reason: COUGH Last Admin: 04/22/19 22:10 Dose: 3 ml 83 year old gentleman with history of respiratory failure on vent via trach, prostate cancer s/p radiation therapy, CAD s/p CABG, hypertension, DM who presented [place] with coffee ground emesis who has developed acute kidney injury during the hospital admission. 1. Acute kidney injury secondary to pre-renal injury vs. contrast nephropathy 2. Hypernatremia 3. Acute on chornic anemia with suspected GI bleed 4. Chronic respiratory failure on vent 5. Leukocytoiss 6. BPH/Prostate cancer Urine studies show FeNa of 0.6% consistent with pre-renal vs. contrast nephropathy. Pt remains total body volume overloaded. Will give lasix 40mg IV x 1 today nephrostomy tubes w/o good output but doubt obstruction as his renal function is not worsening can consider US in 1-2 days restart oral feeds and free water when possible check CBC today continue proscar continue vent support Thank you Andrew Finney DO
[2019-04-24] MEDS: SODIUM BICARBONATE 650 MG TABLET GT SCH (11:14)
[2019-04-24] MEDS ORDERED: DEXTROSE 5%-NORMAL SALINE 1,000 ML IV SCH (11:45)
--- NOTE | 2019-04-24 12:13 | PN ---
Progress Note (short form) - Note Progress Note: Vented. Awake on AC Mode. No fevers recorded. No acute events overnight. Intake & Output 04/21/19 04/22/19 04/23/19 04/24/19 23:59 23:59 23:59 23:59 Intake Total 750 450 0 Output Total 100 875 Balance 750 350 -875 Last Vital Signs Temp Pulse Resp BP Pulse Ox 97.4 F L 91 H 22 H 103/63 100 04/24/19 10:00 04/24/19 10:00 04/24/19 10:00 04/24/19 10:00 04/23/19 21:00 Active Medications Artificial Tears (Artificial Tears) 1 drop OU QID [facility] Last Admin: 04/24/19 10:39 Dose: 1 drop Diltiazem HCl (Cardizem -) 30 mg PO Q6HPO [facility] Last Admin: 04/24/19 06:44 Dose: 30 mg Diltiazem HCl (Cardizem Injection -) 5 mg IVPUSH Q4H PRN PRN Reason: TACHYCARDIA Ferrous Sulfate (Feosol) 300 mg GT BID [facility] Last Admin: 04/24/19 10:37 Dose: 300 mg Finasteride (Proscar -) 5 mg PO DAILY [facility] Last Admin: 04/24/19 10:38 Dose: 5 mg Dextrose/Sodium Chloride (D5-Ns -) 1,000 mls @ 80 mls/hr IV ASDIR [facility] Last Admin: 04/24/19 11:16 Dose: 80 mls/hr Insulin Aspart (Novolog Vial Sliding Scale -) 1 vial SQ ACHS [facility]; Protocol Last Admin: 04/24/19 06:37 Dose: Not Given Metoclopramide HCl (Reglan Injection -) 5 mg IVPB Q8H PRN PRN Reason: NAUSEA AND/OR VOMITING Metoprolol Tartrate (Lopressor -) 50 mg PEG Q6HPO [facility] Last Admin: 04/24/19 11:14 Dose: 50 mg Metoprolol Tartrate (Lopressor Injection -) 5 mg IVPUSH Q4H PRN PRN Reason: HYPERTENSION Metoprolol Tartrate (Lopressor Injection -) 10 mg IVPUSH Q4H PRN PRN Reason: TACHYCARDIA Multivitamins/Minerals (Certavite-Antioxidant Liquid) 15 ml PEG DAILY [facility] Last Admin: 04/24/19 10:37 Dose: 15 ml Ondansetron HCl (Zofran Injection) 4 mg IVPUSH Q6H PRN PRN Reason: NAUSEA AND/OR VOMITING Pantoprazole Sodium (Protonix Iv) 40 mg IVPUSH DAILY [facility] Last Admin: 04/24/19 10:38 Dose: 40 mg Potassium Chloride (Potassium Chloride Oral Liquid) 20 meq PO DAILY [facility] Last Admin: 04/24/19 10:37 Dose: 20 meq Sodium Bicarbonate (Sodium Bicarbonate -) 650 mg GT DAILY [facility] Last Admin: 04/24/19 11:14 Dose: 650 mg Sodium Chloride (Normal Saline For Inhalation -) 3 ml IH Q6H PRN PRN Reason: COUGH Last Admin: 04/22/19 22:10 Dose: 3 ml Gen: vented, awake Heart: RRR Lung: decreased breath sounds at the bases Abd: soft, nontender Ext: + edema Laboratory Results - last 24 hr 04/22/19 04/23/19 04/23/19 14:00 13:39 17:57 WBC RBC Hgb Hct MCV MCH MCHC RDW Plt Count MPV Absolute Neuts (auto) Neutrophils % Lymphocytes % Monocytes % Eosinophils % Basophils % Nucleated RBC % Anisocytosis Sodium Potassium Chloride Carbon Dioxide Anion Gap BUN Creatinine Est GFR (CKD-EPI)AfAm Est GFR (CKD-EPI)NonAf POC Glucometer 111 116 Random Glucose Calcium Phosphorus Magnesium Total Bilirubin AST ALT Alkaline Phosphatase Total Protein Albumin Urine Eosinophils None seen 04/23/19 04/23/19 04/24/19 20:31 23:02 05:53 WBC 13.0 H RBC 2.95 L Hgb 9.0 L Hct 28.4 L MCV 96.3 H MCH 30.4 MCHC 31.5 L RDW 21.7 H Plt Count 206 MPV 8.9 Absolute Neuts (auto) 11.3 H Neutrophils % 87.3 H Lymphocytes % 5.5 L Monocytes % 5.8 Eosinophils % 1.0 Basophils % 0.4 Nucleated RBC % 0 Anisocytosis 1+ Sodium Potassium Chloride Carbon Dioxide Anion Gap BUN Creatinine Est GFR (CKD-EPI)AfAm Est GFR (CKD-EPI)NonAf POC Glucometer 96 88 Random Glucose Calcium Phosphorus Magnesium Total Bilirubin AST ALT Alkaline Phosphatase Total Protein Albumin Urine Eosinophils 04/24/19 04/24/19 05:55 08:11 WBC RBC Hgb Hct MCV MCH MCHC RDW Plt Count MPV Absolute Neuts (auto) Neutrophils % Lymphocytes % Monocytes % Eosinophils % Basophils % Nucleated RBC % Anisocytosis Sodium 144 Potassium 4.0 Chloride 116 H Carbon Dioxide 18 L Anion Gap 10 BUN 39.1 H Creatinine 2.1 H Est GFR (CKD-EPI)AfAm 32.98 Est GFR (CKD-EPI)NonAf 28.46 POC Glucometer 79 Random Glucose 75 Calcium 7.5 L Phosphorus 3.8 Magnesium 1.8 Total Bilirubin 1.3 H AST 23 ALT 14 Alkaline Phosphatase 124 H Total Protein 6.7 Albumin 1.2 L Urine Eosinophils A/P Acute on Chronic Respiratory Failure Suspected UTI/Pneumonia/Sepsis Lactic Acidosis Atrial Flutter with RVR Anemia CAD s/p CABG COPD HTN Hyperlipidemia Ascites - Off ABX Per ID - protonix - monitor H/H - Rate control - enteral feeds as tolerated - DVT/GI prophylaxis Dr Castro
--- NOTE | 2019-04-24 12:19 | PN ---
Progress Note (short form) - Note Progress Note: Pt apparently vomited again last evening. Tube feedings were held. No vomiting today; Hgb stable. Will d/c Feosol as that may be contributing to nausea/vomiting. Will begin tube feedings at low rate, increase as tolerated.
--- NOTE | 2019-04-24 12:30 | PN ---
Progress Note, Physician Chief Complaint: AWAK EVENTS AND NOTES REVIEWED TUBE FEEDS HELD DUE TO VOMITING BGM LOW - Current Medication List Current Medications: Active Medications Artificial Tears (Artificial Tears) 1 drop OU QID [facility] Last Admin: 04/24/19 10:39 Dose: 1 drop Diltiazem HCl (Cardizem -) 30 mg PO Q6HPO [facility] Last Admin: 04/24/19 06:44 Dose: 30 mg Diltiazem HCl (Cardizem Injection -) 5 mg IVPUSH Q4H PRN PRN Reason: TACHYCARDIA Finasteride (Proscar -) 5 mg PO DAILY [facility] Last Admin: 04/24/19 10:38 Dose: 5 mg Dextrose/Sodium Chloride (D5-Ns -) 1,000 mls @ 80 mls/hr IV ASDIR [facility] Last Admin: 04/24/19 11:16 Dose: 80 mls/hr Insulin Aspart (Novolog Vial Sliding Scale -) [address] [facility]; Protocol Last Admin: 04/24/19 06:37 Dose: Not Given Metoclopramide HCl (Reglan Injection -) 5 mg IVPB Q8H PRN PRN Reason: NAUSEA AND/OR VOMITING Metoprolol Tartrate (Lopressor -) 50 mg PEG Q6HPO [facility] Last Admin: 04/24/19 11:14 Dose: 50 mg Metoprolol Tartrate (Lopressor Injection -) 5 mg IVPUSH Q4H PRN PRN Reason: HYPERTENSION Metoprolol Tartrate (Lopressor Injection -) 10 mg IVPUSH Q4H PRN PRN Reason: TACHYCARDIA Multivitamins/Minerals (Certavite-Antioxidant Liquid) 15 ml PEG DAILY [facility] Last Admin: 04/24/19 10:37 Dose: 15 ml Ondansetron HCl (Zofran Injection) 4 mg IVPUSH Q6H PRN PRN Reason: NAUSEA AND/OR VOMITING Pantoprazole Sodium (Protonix Iv) 40 mg IVPUSH DAILY [facility] Last Admin: 04/24/19 10:38 Dose: 40 mg Potassium Chloride (Potassium Chloride Oral Liquid) 20 meq PO DAILY [facility] Last Admin: 04/24/19 10:37 Dose: 20 meq Sodium Bicarbonate (Sodium Bicarbonate -) 650 mg GT DAILY [facility] Last Admin: 04/24/19 11:14 Dose: 650 mg Sodium Chloride (Normal Saline For Inhalation -) 3 ml IH Q6H PRN PRN Reason: COUGH Last Admin: 04/22/19 22:10 Dose: 3 ml - Objective Vital Signs: Vital Signs Temperature 97.4 F L 04/24/19 10:00 Pulse Rate 91 H 04/24/19 10:00 Respiratory Rate 22 H 04/24/19 10:00 Blood Pressure 103/63 04/24/19 10:00 O2 Sat by Pulse Oximetry (%) 100 04/23/19 21:00 Constitutional: Yes: Mild Distress Cardiovascular: Yes: Tachycardia, Pulse Irregular Respiratory: Yes: Mechanically Ventilated Gastrointestinal: Yes: Normal Bowel Sounds, Distention Genitourinary: Yes: Huber Present Musculoskeletal: Yes: Muscle Weakness Extremities: Yes: Erythema Edema: Yes Integumentary: Yes: Pressure Ulcer, Rash, Venous Stasis Changes Wound/Incision: Yes: Open to air Neurological: Yes: Confusion, Pre-Existing Deficit, Weakness ...Motor Strength: LLE, RLE Labs: CBC, BMP 04/23/19 20:31 04/24/19 05:55 INR, PTT INR 1.43 (0.83-1.09) H 04/18/19 05:20 Fibrinogen 295.0 mg/dL (238-498) 04/16/19 05:30 Problem List - Problems (1) Acute and chronic respiratory failure Code(s): J96.20 - ACUTE AND CHR RESP FAILURE, UNSP W HYPOXIA OR HYPERCAPNIA (2) Anemia Code(s): D64.9 - ANEMIA, UNSPECIFIED (3) COPD (chronic obstructive pulmonary disease) Code(s): J44.9 - CHRONIC OBSTRUCTIVE PULMONARY DISEASE, UNSPECIFIED (4) Coffee ground emesis Code(s): K92.0 - HEMATEMESIS (5) Diabetes mellitus Code(s): E11.9 - TYPE 2 DIABETES MELLITUS WITHOUT COMPLICATIONS (6) ESRD (end stage renal disease) Code(s): N18.6 - END STAGE RENAL DISEASE (7) GI bleed Code(s): K92.2 - GASTROINTESTINAL HEMORRHAGE, UNSPECIFIED (8) HLD (hyperlipidemia) Code(s): E78.5 - HYPERLIPIDEMIA, UNSPECIFIED (9) HTN (hypertension) Code(s): I10 - ESSENTIAL (PRIMARY) HYPERTENSION (10) Sepsis Code(s): A41.9 - SEPSIS, UNSPECIFIED ORGANISM (11) Status post tracheostomy Code(s): Z93.0 - TRACHEOSTOMY STATUS (12) Atrial flutter Code(s): I48.92 - UNSPECIFIED ATRIAL FLUTTER Assessment/Plan RESTARTING TUBE FEEDS SLOWLY PER GI IVF 80 CC/HR X 1 LITER TRASNFUSE NEEDED IV ABX PER ID VENT DEPENDENT CAN NOT WEAN OFF AT THIS TIME PULMONARY FOLLOWING UP TRANSFER TO SNF WITH DNR/DNI PARAMETER OUTLINED SHOULD BE A DISCUSSION ON ADVANCED DIRECTIVES WITH FAMILY AND FUTURE HOSPITALIZATIONS
[2019-04-24 12:45] LABS: HEMATOCRIT 27.3 % (35.4-49); HEMOGLOBIN 8.5 GM/dL (11.7-16.9); MCH 30.2 pg (25.7-33.7); MCHC 31.2 g/dl (32.0-35.9); MEAN CELL VOLUME 96.9 fl (80-96); MEAN PLT VOLUME 9.7 fl (7.5-11.1); PLATELET COUNT 191 K/MM3 (134-434); RBC 2.81 M/mm3 (4.00-5.60); RDW 22.2 % (11.9-15.9); WHITE BLOOD COUNT 11.7 K/mm3 (4.0-10.0)
[2019-04-25] MEDS: METOPROLOL TARTRATE 50 MG TABLET (FP) PEG SCH ×3 (05:35→17:55)
[2019-04-25] MEDS: dilTIAZem HCL 30 MG TABLET (FP) PO SCH ×3 (05:36→17:55)
[2019-04-25] MEDS: INSULIN SLIDING SCALE (NOVOLOG) 1 VIAL SQ SCH ×4 (06:05→22:07)
--- NOTE | 2019-04-25 08:41 | PN ---
Progress Note, Physician Chief Complaint: CENTRAL LINE FROM LEFT SIDE OF NECK REMOVED DUE TO NON-FUNCTIONING DRAWS AND IV ACCESS STOPPED NO FEVER OR CHILLS - Current Medication List Current Medications: Active Medications Artificial Tears (Artificial Tears) 1 drop OU QID [facility] Last Admin: 04/24/19 21:34 Dose: 1 drop Diltiazem HCl (Cardizem -) 30 mg PO Q6HPO [facility] Last Admin: 04/25/19 05:36 Dose: 30 mg Diltiazem HCl (Cardizem Injection -) 5 mg IVPUSH Q4H PRN PRN Reason: TACHYCARDIA Finasteride (Proscar -) 5 mg PO DAILY [facility] Last Admin: 04/24/19 10:38 Dose: 5 mg Dextrose/Sodium Chloride (D5-Ns -) 1,000 mls @ 80 mls/hr IV ASDIR [facility] Last Admin: 04/24/19 11:16 Dose: 80 mls/hr Insulin Aspart (Novolog Vial Sliding Scale -) 1 vial SQ ACHS [facility]; Protocol Last Admin: 04/25/19 06:05 Dose: Not Given Metoclopramide HCl (Reglan Injection -) 5 mg IVPB Q8H PRN PRN Reason: NAUSEA AND/OR VOMITING Metoprolol Tartrate (Lopressor -) 50 mg PEG Q6HPO [facility] Last Admin: 04/25/19 05:35 Dose: 50 mg Metoprolol Tartrate (Lopressor Injection -) 5 mg IVPUSH Q4H PRN PRN Reason: HYPERTENSION Metoprolol Tartrate (Lopressor Injection -) 10 mg IVPUSH Q4H PRN PRN Reason: TACHYCARDIA Multivitamins/Minerals (Certavite-Antioxidant Liquid) 15 ml PEG DAILY [facility] Last Admin: 04/24/19 10:37 Dose: 15 ml Ondansetron HCl (Zofran Injection) 4 mg IVPUSH Q6H PRN PRN Reason: NAUSEA AND/OR VOMITING Pantoprazole Sodium (Protonix Iv) 40 mg IVPUSH DAILY [facility] Last Admin: 04/24/19 10:38 Dose: 40 mg Potassium Chloride (Potassium Chloride Oral Liquid) 20 meq PO DAILY [facility] Last Admin: 04/24/19 10:37 Dose: 20 meq Sodium Bicarbonate (Sodium Bicarbonate -) 650 mg GT DAILY [facility] Last Admin: 04/24/19 11:14 Dose: 650 mg Sodium Chloride (Normal Saline For Inhalation -) 3 ml IH Q6H PRN PRN Reason: COUGH Last Admin: 04/22/19 22:10 Dose: 3 ml - Objective Vital Signs: Vital Signs Temperature 98.5 F 04/24/19 18:20 Pulse Rate 92 H 04/24/19 18:20 Respiratory Rate 20 04/25/19 04:35 Blood Pressure 108/68 04/24/19 22:00 O2 Sat by Pulse Oximetry (%) 100 04/24/19 21:00 Constitutional: Yes: Mild Distress Cardiovascular: Yes: Pulse Irregular Respiratory: Yes: Mechanically Ventilated Gastrointestinal: Yes: Other (GTUBE FUNCTIONING) Genitourinary: Yes: Huber Present Musculoskeletal: Yes: Muscle Weakness Edema: Yes Integumentary: Yes: Petechiae, Rash, Venous Stasis Changes Neurological: Yes: Pre-Existing Deficit Labs: CBC, BMP 04/24/19 11:10 04/24/19 05:55 INR, PTT INR 1.43 (0.83-1.09) H 04/18/19 05:20 Fibrinogen 295.0 mg/dL (238-498) 04/16/19 05:30 Problem List - Problems (1) Acute and chronic respiratory failure Code(s): J96.20 - ACUTE AND CHR RESP FAILURE, UNSP W HYPOXIA OR HYPERCAPNIA (2) Anemia Code(s): D64.9 - ANEMIA, UNSPECIFIED (3) COPD (chronic obstructive pulmonary disease) Code(s): J44.9 - CHRONIC OBSTRUCTIVE PULMONARY DISEASE, UNSPECIFIED (4) Coffee ground emesis Code(s): K92.0 - HEMATEMESIS (5) Diabetes mellitus Code(s): E11.9 - TYPE 2 DIABETES MELLITUS WITHOUT COMPLICATIONS (6) ESRD (end stage renal disease) Code(s): N18.6 - END STAGE RENAL DISEASE (7) GI bleed Code(s): K92.2 - GASTROINTESTINAL HEMORRHAGE, UNSPECIFIED (8) HLD (hyperlipidemia) Code(s): E78.5 - HYPERLIPIDEMIA, UNSPECIFIED (9) HTN (hypertension) Code(s): I10 - ESSENTIAL (PRIMARY) HYPERTENSION (10) Sepsis Code(s): A41.9 - SEPSIS, UNSPECIFIED ORGANISM (11) Status post tracheostomy Code(s): Z93.0 - TRACHEOSTOMY STATUS (12) Atrial flutter Code(s): I48.92 - UNSPECIFIED ATRIAL FLUTTER Assessment/Plan DC PLANNING TO [facility] TLC REMOVED GTUBE FUNCTIONING MONITOR LABS REPLETE MAGNESIUM
--- NOTE | 2019-04-25 08:46 | PN ---
Progress Note (short form) - Note Progress Note: Tolerating tube feedings at 30 ml/hr (total of 1080 kcal/day). Will increase feedings to 45 ml/hr (1620 kcal/day). Would like to go a bit higher; 50-60 ml/hr should be adequate (50 -> 1800 kcal/day, 60 -> 2160 kcal/day )
[2019-04-25 09:11] LABS: BASO % 0.1 % (0-2.0); HEMATOCRIT 28.4 % (35.4-49); HEMOGLOBIN 9.1 GM/dL (11.7-16.9); LYMPH % 4.5 % (8-40); MCH 30.9 pg (25.7-33.7); MCHC 31.9 g/dl (32.0-35.9); MEAN CELL VOLUME 96.6 fl (80-96); MEAN PLT VOLUME 9.7 fl (7.5-11.1); NEUT % 89.4 % (42.8-82.8); PLATELET COUNT 167 K/MM3 (134-434); RBC 2.94 M/mm3 (4.00-5.60); RDW 23.8 % (11.9-15.9); WHITE BLOOD COUNT 11.2 K/mm3 (4.0-10.0)
[2019-04-25 09:41] LABS: CALCIUM 7.3 mg/dL (8.5-10.1); CREATININE 2.1 mg/dL (0.55-1.3); MAGNESIUM 1.7 mg/dL (1.8-2.4); PHOSPHOROUS 3.2 mg/dL (2.5-4.9); POTASSIUM 4.1 mmol/L (3.5-5.1)
[2019-04-25] MEDS: FINASTERIDE 5 MG TABLET (FP) PO SCH (11:11)
[2019-04-25] MEDS: POTASSIUM CHLORIDE ORAL LIQUID 20 MEQ/15 ML PO SCH (11:11)
[2019-04-25] MEDS: PANTOPRAZOLE SOD 40 MG SUSPENSION PACKET NGT SCH (11:12)
[2019-04-25] MEDS: SODIUM BICARBONATE 650 MG TABLET GT SCH (11:12)
[2019-04-25] MEDS: MULTIVIT-MINERALS ORAL LIQUID PEG SCH (11:13)
[2019-04-25] MEDS: ARTIFICIAL TEARS (POLYVINYL ALCOHOL) OPTH DROPS OU SCH ×4 (11:14→22:07)
[2019-04-25] MEDS ORDERED: MAGNESIUM OXIDE 400 MG TABLET (FP) GT ONE (11:17)
--- NOTE | 2019-04-25 11:19 | PN ---
Progress Note (short form) - Note Progress Note: Renal follow up for PÉREZ Seen and examined at the bedside sleeping no overnight events making urine Vital Signs Temperature 98.5 F 04/24/19 18:20 Pulse Rate 92 H 04/24/19 18:20 Respiratory Rate 17 04/25/19 09:03 Blood Pressure 108/68 04/24/19 22:00 O2 Sat by Pulse Oximetry (%) 100 04/24/19 21:00 Intake & Output 04/22/19 04/23/19 04/24/19 04/25/19 23:59 23:59 23:59 23:59 Intake Total 450 0 1230 0 Output Total 100 875 50 35 Balance 350 -875 1180 -35 NAD awake and alert neck supple RRR CTA soft NT/ND + upper and lower extremity edema CBC, BMP 04/25/19 08:19 04/25/19 08:19 Current Medications Artificial Tears (Artificial Tears) 1 drop OU QID [facility] Last Admin: 04/25/19 11:14 Dose: 1 drop Diltiazem HCl (Cardizem -) 30 mg PO Q6HPO [facility] Last Admin: 04/25/19 11:13 Dose: 30 mg Finasteride (Proscar -) 5 mg PO DAILY [facility] Last Admin: 04/25/19 11:11 Dose: 5 mg Furosemide (Lasix -) 20 mg GT DAILY [facility] Insulin Aspart (Novolog Vial Sliding Scale -) 1 vial SQ ACHS [facility]; Protocol Last Admin: 04/25/19 06:05 Dose: Not Given Magnesium Oxide (Mag-Ox -) 400 mg GT ONCE ONE Stop: 04/25/19 11:18 Metoprolol Tartrate (Lopressor -) 50 mg PEG Q6HPO [facility] Last Admin: 04/25/19 11:11 Dose: 50 mg Metoprolol Tartrate (Lopressor Injection -) 5 mg IVPUSH Q4H PRN PRN Reason: HYPERTENSION Metoprolol Tartrate (Lopressor Injection -) 10 mg IVPUSH Q4H PRN PRN Reason: TACHYCARDIA Multivitamins/Minerals (Certavite-Antioxidant Liquid) 15 ml PEG DAILY [facility] Last Admin: 04/25/19 11:13 Dose: 15 ml Pantoprazole Sodium (Protonix Packets For Oral Suspension -) 40 mg NGT DAILY [facility] Last Admin: 04/25/19 11:12 Dose: 40 mg Potassium Chloride (Potassium Chloride Oral Liquid) 20 meq PO DAILY [facility] Last Admin: 04/25/19 11:11 Dose: 20 meq Sodium Bicarbonate (Sodium Bicarbonate -) 650 mg GT DAILY [facility] Last Admin: 04/25/19 11:12 Dose: 650 mg Sodium Chloride (Normal Saline For Inhalation -) 3 ml IH Q6H PRN PRN Reason: COUGH Last Admin: 04/22/19 22:10 Dose: 3 ml 83 year old gentleman with history of respiratory failure on vent via trach, prostate cancer s/p radiation therapy, CAD s/p CABG, hypertension, DM who presented from [place] with coffee ground emesis who has developed acute kidney injury during the hospital admission. 1. Acute kidney injury secondary to pre-renal injury vs. contrast nephropathy 2. Hypernatremia 3. Acute on chornic anemia with suspected GI bleed 4. Chronic respiratory failure on vent 5. Leukocytoiss 6. BPH/Prostate cancer Renal function stable, no overt electrolyte abnormalities Urine studies show FeNa of 0.6% consistent with pre-renal vs. contrast nephropathy. Start PO Lasix 20mg daily for edema management nephrostomy tubes w/o good output but doubt obstruction as his renal function is not worsening check Renal US Continue oral feeds and free water continue proscar continue vent support Thank you Andrew Finney DO
--- NOTE | 2019-04-25 11:30 | PN ---
Progress Note (short form) - Note Progress Note: Vented. Awake on AC Mode. No fevers recorded. No acute events overnight. TLC removed. Intake & Output 04/22/19 04/23/19 04/24/19 04/25/19 23:59 23:59 23:59 23:59 Intake Total 450 0 1230 0 Output Total 100 875 50 35 Balance 350 -875 1180 -35 Last Vital Signs Temp Pulse Resp BP Pulse Ox 98.5 F 92 H 17 108/68 100 04/24/19 18:20 04/24/19 18:20 04/25/19 09:03 04/24/19 22:00 04/24/19 21:00 Active Medications Artificial Tears (Artificial Tears) 1 drop OU QID [facility] Last Admin: 04/25/19 11:14 Dose: 1 drop Diltiazem HCl (Cardizem -) 30 mg PO Q6HPO [facility] Last Admin: 04/25/19 11:13 Dose: 30 mg Finasteride (Proscar -) 5 mg PO DAILY [facility] Last Admin: 04/25/19 11:11 Dose: 5 mg Furosemide (Lasix -) 20 mg GT DAILY [facility] Insulin Aspart (Novolog Vial Sliding Scale -) 1 vial SQ [facility]; Protocol Last Admin: 04/25/19 06:05 Dose: Not Given Metoprolol Tartrate (Lopressor -) 50 mg PEG Q6HPO [facility] Last Admin: 04/25/19 11:11 Dose: 50 mg Metoprolol Tartrate (Lopressor Injection -) 5 mg IVPUSH Q4H PRN PRN Reason: HYPERTENSION Metoprolol Tartrate (Lopressor Injection -) 10 mg IVPUSH Q4H PRN PRN Reason: TACHYCARDIA Multivitamins/Minerals (Certavite-Antioxidant Liquid) 15 ml PEG DAILY [facility] Last Admin: 04/25/19 11:13 Dose: 15 ml Pantoprazole Sodium (Protonix Packets For Oral Suspension -) 40 mg NGT DAILY [facility] Last Admin: 04/25/19 11:12 Dose: 40 mg Potassium Chloride (Potassium Chloride Oral Liquid) 20 meq PO DAILY [facility] Last Admin: 04/25/19 11:11 Dose: 20 meq Sodium Bicarbonate (Sodium Bicarbonate -) 650 mg GT DAILY [facility] Last Admin: 04/25/19 11:12 Dose: 650 mg Sodium Chloride (Normal Saline For Inhalation -) 3 ml IH Q6H PRN PRN Reason: COUGH Last Admin: 04/22/19 22:10 Dose: 3 ml Gen: vented, awake Heart: RRR Lung: decreased breath sounds at the bases Abd: soft, nontender Ext: + edema Laboratory Results - last 24 hr 04/22/19 04/24/19 04/24/19 14:00 11:10 12:23 WBC 11.7 H RBC 2.81 L Hgb 8.5 L Hct 27.3 L MCV 96.9 H MCH 30.2 MCHC 31.2 L RDW 22.2 H Plt Count 191 MPV 9.7 Absolute Neuts (auto) Neutrophils % Lymphocytes % Monocytes % Eosinophils % Basophils % Nucleated RBC % Sodium Potassium Chloride Carbon Dioxide Anion Gap BUN Creatinine Est GFR (CKD-EPI)AfAm Est GFR (CKD-EPI)NonAf POC Glucometer 87 Random Glucose Calcium Phosphorus Magnesium Urine Eosinophils None seen 04/24/19 04/24/19 04/24/19 16:44 21:13 23:23 WBC RBC Hgb Hct MCV MCH MCHC RDW Plt Count MPV Absolute Neuts (auto) Neutrophils % Lymphocytes % Monocytes % Eosinophils % Basophils % Nucleated RBC % Sodium Potassium Chloride Carbon Dioxide Anion Gap BUN Creatinine Est GFR (CKD-EPI)AfAm Est GFR (CKD-EPI)NonAf POC Glucometer 82 83 78 Random Glucose Calcium Phosphorus Magnesium Urine Eosinophils 04/24/19 04/25/19 04/25/19 23:24 05:07 08:19 WBC RBC Hgb Hct MCV MCH MCHC RDW Plt Count MPV Absolute Neuts (auto) Neutrophils % Lymphocytes % Monocytes % Eosinophils % Basophils % Nucleated RBC % Sodium 144 Potassium 4.1 Chloride 115 H Carbon Dioxide 19 L Anion Gap 10 BUN 35.0 H Creatinine 2.1 H Est GFR (CKD-EPI)AfAm 32.98 Est GFR (CKD-EPI)NonAf 28.46 POC Glucometer 84 92 Random Glucose 87 Calcium 7.3 L Phosphorus 3.2 Magnesium 1.7 L Urine Eosinophils 04/25/19 04/25/19 08:19 11:21 WBC 11.2 H RBC 2.94 L Hgb 9.1 L Hct 28.4 L MCV 96.6 H MCH 30.9 MCHC 31.9 L RDW 23.8 H Plt Count 167 MPV 9.7 Absolute Neuts (auto) 10.1 H Neutrophils % 89.4 H Lymphocytes % 4.5 L Monocytes % 5.0 Eosinophils % 1.0 Basophils % 0.1 Nucleated RBC % 0 Sodium Potassium Chloride Carbon Dioxide Anion Gap BUN Creatinine Est GFR (CKD-EPI)AfAm Est GFR (CKD-EPI)NonAf POC Glucometer 94 Random Glucose Calcium Phosphorus Magnesium Urine Eosinophils A/P Acute on Chronic Respiratory Failure Suspected UTI/Pneumonia/Sepsis Lactic Acidosis Atrial Flutter with RVR Anemia CAD s/p CABG COPD HTN Hyperlipidemia Ascites - Off ABX Per ID - protonix - monitor H/H - Rate control - enteral feeds as tolerated - DVT/GI prophylaxis - DC planning Dr Castro
[2019-04-25] MEDS: FUROSEMIDE 20 MG TABLET (FP) GT SCH (12:14)
[2019-04-25] MEDS: DEXTROSE 5%-WATER - 1,000 ML IV SCH (16:57)
[2019-04-26] MEDS: METOPROLOL TARTRATE 50 MG TABLET (FP) PEG SCH ×5 (00:05→23:26)
[2019-04-26] MEDS: dilTIAZem HCL 30 MG TABLET (FP) PO SCH ×5 (00:05→23:26)
[2019-04-26] MEDS: DEXTROSE 5%-WATER - 1,000 ML IV SCH (06:28)
[2019-04-26] MEDS: INSULIN SLIDING SCALE (NOVOLOG) 1 VIAL SQ SCH ×4 (06:29→23:25)
--- NOTE | 2019-04-26 10:48 | PN ---
Progress Note, Physician Chief Complaint: Acute on Chronic Respiratory Failure UTI Ascites History of Present Illness: mechanical vent H/H stable returned from EGD- source of bleeding still unidentifiable + melena/hematochezia Family frustrated of not being able to understand the source of emerging chronic and acute issues, mainly bleeding Has had bleeding from bladder in the past at [facility]-records reviewed Had rectal bleed in 04/2018, went to [facility] in [place], await records Awaiting records from [facility] and [facility] 04/22/18: Awake and alert Started on reglan SSRI discontinued due to interaction PEG residual 50 cc this AM 04/26/19 Vomited yesterday Tube feeds held GI aware Was on IV reglan, was dc'd? - Current Medication List Current Medications: Active Medications Artificial Tears (Artificial Tears) 1 drop OU QID [facility] Last Admin: 04/25/19 22:07 Dose: 1 drop Diltiazem HCl (Cardizem -) 30 mg PO Q6HPO [facility] Last Admin: 04/26/19 06:28 Dose: 30 mg Finasteride (Proscar -) 5 mg PO DAILY [facility] Last Admin: 04/25/19 11:11 Dose: 5 mg Furosemide (Lasix -) 20 mg GT DAILY [facility] Last Admin: 04/25/19 12:14 Dose: 20 mg Dextrose (D5w -) 1,000 mls @ 80 mls/hr IV ASDIR [facility] Last Admin: 04/26/19 06:28 Dose: 80 mls/hr Insulin Aspart (Novolog Vial Sliding Scale -) 1 vial SQ [facility]; Protocol Last Admin: 04/26/19 06:29 Dose: Not Given Metoclopramide HCl (Reglan Oral Solution -) 10 mg PEG AC [facility] Metoprolol Tartrate (Lopressor -) 50 mg PEG Q6HPO [facility] Last Admin: 04/26/19 06:28 Dose: 50 mg Metoprolol Tartrate (Lopressor Injection -) 5 mg IVPUSH Q4H PRN PRN Reason: HYPERTENSION Metoprolol Tartrate (Lopressor Injection -) 10 mg IVPUSH Q4H PRN PRN Reason: TACHYCARDIA Multivitamins/Minerals (Certavite-Antioxidant Liquid) 15 ml PEG DAILY [facility] Last Admin: 04/25/19 11:13 Dose: 15 ml Pantoprazole Sodium (Protonix Packets For Oral Suspension -) 40 mg NGT DAILY [facility] Last Admin: 04/25/19 11:12 Dose: 40 mg Potassium Chloride (Potassium Chloride Oral Liquid) 20 meq PO DAILY [facility] Last Admin: 04/25/19 11:11 Dose: 20 meq Sodium Bicarbonate (Sodium Bicarbonate -) 650 mg GT DAILY [facility] Last Admin: 04/25/19 11:12 Dose: 650 mg Sodium Chloride (Normal Saline For Inhalation -) 3 ml IH Q6H PRN PRN Reason: COUGH Last Admin: 04/22/19 22:10 Dose: 3 ml - Objective Vital Signs: Vital Signs Temperature 97.6 F 04/26/19 06:00 Pulse Rate 67 04/26/19 08:18 Respiratory Rate 26 H 04/26/19 08:18 Blood Pressure 130/72 04/26/19 06:00 O2 Sat by Pulse Oximetry (%) 98 04/26/19 08:18 Constitutional: Yes: Well Nourished, No Distress, Calm Cardiovascular: Yes: Regular Rate and Rhythm Respiratory: Yes: Mechanically Ventilated, Rhonchi (diffuse) Gastrointestinal: Yes: Normal Bowel Sounds, Soft Musculoskeletal: Yes: Muscle Weakness Extremities: Yes: WNL Edema: Yes (generalized) Peripheral Pulses WNL: Yes Neurological: Yes: Alert, Oriented Psychiatric: Yes: Alert, Oriented Labs: INR, PTT INR 1.43 (0.83-1.09) H 04/18/19 05:20 Fibrinogen 295.0 mg/dL (238-498) 04/16/19 05:30 Problem List - Problems (1) PÉREZ (acute kidney injury) Assessment/Plan: -Nephrology consult -monitor trend -Cr stable -Renal U/S reviewed Problems reviewed: Yes Code(s): N17.9 - ACUTE KIDNEY FAILURE, UNSPECIFIED (2) Vomiting Assessment/Plan: -Start Reglan 10 mg AC -GI to re-evaluate -abd xray reviewed Problems reviewed: Yes Code(s): R11.10 - VOMITING, UNSPECIFIED Assessment/Plan (1) Acute and chronic respiratory failure Assessment/Plan: -Pulm on board -Mechanically Ventilated -keep SpO2 >90% -CXR shows cardiomegaly, left basilar compressive atelectasis, left pleural effusion, right pleural effusion -Sputum Culture positive for MRSA -Encourage use of passy berta valve daily Code(s): J96.20 - ACUTE AND CHR RESP FAILURE, UNSP W HYPOXIA OR HYPERCAPNIA (2) Anemia Assessment/Plan: -Stable -monitor Hg weekly outpatient and transfuse for Hg <7.0 to avoid fluid overload -GI and Hematology on board Code(s): D64.9 - ANEMIA, UNSPECIFIED (3) Atrial flutter Assessment/Plan: -Metoprolol and Cardizem -Cardiology on board -Rate controlled now Code(s): I48.92 - UNSPECIFIED ATRIAL FLUTTER (4) COPD (chronic obstructive pulmonary disease) Assessment/Plan: -Pulm on board -Mechanically Ventilated -keep SpO2 >90% Code(s): J44.9 - CHRONIC OBSTRUCTIVE PULMONARY DISEASE, UNSPECIFIED (5) Diabetes mellitus Assessment/Plan: -BGM ACHS -ISS Code(s): E11.9 - TYPE 2 DIABETES MELLITUS WITHOUT COMPLICATIONS (6) GI bleed Assessment/Plan: -GI on board -Pantoprazole GT -EGD-unable to identify the source of bleeding -CT Abd/pelvis was negative for SBO Code(s): K92.2 - GASTROINTESTINAL HEMORRHAGE, UNSPECIFIED (7) HTN (hypertension) Assessment/Plan: -Metoprolol + Cardizem Code(s): I10 - ESSENTIAL (PRIMARY) HYPERTENSION (8) SBO (small bowel obstruction) Assessment/Plan: -CTAP shows no evidence of bowel obstruction -GI on board Code(s): K56.609 - UNSP INTESTNL OBST, UNSP TO PARTIAL VERSUS COMPLETE OBST (9) Ascites Assessment/Plan: -s/p paracentesis tis admission -Ascites Fluid specimen noted albumin 1.8 with elevated globulins, 2+ proteinuria, macrocytic anemia raise suspicion for hematologic malingnancy -Hematology on board Code(s): R18.8 - OTHER ASCITES (10) Sepsis Assessment/Plan: -ID on board -Leukocytosis -afebrile -Sputum Culture positive for MRSA -BC neg -UC positive ESBL, Klebsiella -Completed course of Zosyn -Off IV abx Code(s): A41.9 - SEPSIS, UNSPECIFIED ORGANISM Assessment/Plan see problem list dvt ppx
[2019-04-26 10:50] LABS: BASO % 0.2 % (0-2.0); EOS % 1.5 % (0-4.5); HEMATOCRIT 26.9 % (35.4-49); HEMOGLOBIN 8.8 GM/dL (11.7-16.9); LYMPH % 6.6 % (8-40); MCH 31.4 pg (25.7-33.7); MCHC 32.6 g/dl (32.0-35.9); MEAN CELL VOLUME 96.1 fl (80-96); MEAN PLT VOLUME 9.2 fl (7.5-11.1); NEUT % 83.7 % (42.8-82.8); PLATELET COUNT 171 K/MM3 (134-434); RDW 23.8 % (11.9-15.9); WHITE BLOOD COUNT 8.7 K/mm3 (4.0-10.0)
[2019-04-26] MEDS ORDERED: METOCLOPRAMIDE HCL 5 MG/5 ML UNIT DOSE CUP PEG SCH (11:00)
--- NOTE | 2019-04-26 11:01 | PN ---
Progress Note (short form) - Note Progress Note: Vented. Awake on AC Mode. No fevers recorded. No acute events overnight. Intake & Output 04/23/19 04/24/19 04/25/19 04/26/19 23:59 23:59 23:59 23:59 Intake Total 0 1230 380 900 Output Total 875 50 35 Balance -875 1180 345 900 Last Vital Signs Temp Pulse Resp BP Pulse Ox 97.6 F 67 26 H 130/72 98 04/26/19 06:00 04/26/19 08:18 04/26/19 08:18 04/26/19 06:00 04/26/19 08:18 Active Medications Artificial Tears (Artificial Tears) 1 drop OU QID [facility] Last Admin: 04/25/19 22:07 Dose: 1 drop Diltiazem HCl (Cardizem -) 30 mg PO Q6HPO [facility] Last Admin: 04/26/19 06:28 Dose: 30 mg Finasteride (Proscar -) 5 mg PO DAILY [facility] Last Admin: 04/25/19 11:11 Dose: 5 mg Furosemide (Lasix -) 20 mg GT DAILY [facility] Last Admin: 04/25/19 12:14 Dose: 20 mg Dextrose (D5w -) 1,000 mls @ 80 mls/hr IV ASDIR [facility] Last Admin: 04/26/19 06:28 Dose: 80 mls/hr Insulin Aspart (Novolog Vial Sliding Scale -) 1 vial SQ ACHS [facility]; Protocol Last Admin: 04/26/19 06:29 Dose: Not Given Metoclopramide HCl (Reglan Oral Solution -) 10 mg PEG TIDAC [facility] Metoprolol Tartrate (Lopressor -) 50 mg PEG Q6HPO [facility] Last Admin: 04/26/19 06:28 Dose: 50 mg Metoprolol Tartrate (Lopressor Injection -) 5 mg IVPUSH Q4H PRN PRN Reason: HYPERTENSION Metoprolol Tartrate (Lopressor Injection -) 10 mg IVPUSH Q4H PRN PRN Reason: TACHYCARDIA Multivitamins/Minerals (Certavite-Antioxidant Liquid) 15 ml PEG DAILY [facility] Last Admin: 04/25/19 11:13 Dose: 15 ml Pantoprazole Sodium (Protonix Packets For Oral Suspension -) 40 mg NGT DAILY [facility] Last Admin: 04/25/19 11:12 Dose: 40 mg Potassium Chloride (Potassium Chloride Oral Liquid) 20 meq PO DAILY [facility] Last Admin: 04/25/19 11:11 Dose: 20 meq Sodium Bicarbonate (Sodium Bicarbonate -) 650 mg GT DAILY [facility] Last Admin: 04/25/19 11:12 Dose: 650 mg Sodium Chloride (Normal Saline For Inhalation -) 3 ml IH Q6H PRN PRN Reason: COUGH Last Admin: 04/22/19 22:10 Dose: 3 ml Gen: vented, awake Heart: RRR Lung: decreased breath sounds at the bases Abd: soft, nontender Ext: + edema Laboratory Results - last 24 hr 04/25/19 04/25/19 04/25/19 11:21 17:41 22:03 WBC RBC Hgb Hct MCV MCH MCHC RDW Plt Count MPV Absolute Neuts (auto) Neutrophils % Lymphocytes % Monocytes % Eosinophils % Basophils % Nucleated RBC % POC Glucometer 94 104 106 04/26/19 04/26/19 05:34 08:47 WBC 8.7 RBC 2.80 L Hgb 8.8 L Hct 26.9 L MCV 96.1 H MCH 31.4 MCHC 32.6 RDW 23.8 H Plt Count 171 MPV 9.2 Absolute Neuts (auto) 7.3 Neutrophils % 83.7 H Lymphocytes % 6.6 L D Monocytes % 8.0 Eosinophils % 1.5 Basophils % 0.2 Nucleated RBC % 0 POC Glucometer 116 A/P Acute on Chronic Respiratory Failure Suspected UTI/Pneumonia/Sepsis Lactic Acidosis Atrial Flutter with RVR Anemia CAD s/p CABG COPD HTN Hyperlipidemia Ascites - Off ABX Per ID - protonix - monitor H/H - Rate control - enteral feeds as tolerated - DVT/GI prophylaxis - DC planning Dr Castro
[2019-04-26] MEDS ORDERED: METOPROLOL TARTRATE 5 MG/5 ML VIAL IVPB PRN ×2 (11:02→11:03)
[2019-04-26 11:13] LABS: ALBUMIN 1.2 g/dl (3.4-5.0); BILIRUBIN,TOTAL 0.8 mg/dL (0.2-1); BLOOD UREA NITROGEN 37.2 mg/dL (7-18); CALCIUM 7.3 mg/dL (8.5-10.1); MAGNESIUM 1.8 mg/dL (1.8-2.4); PHOSPHOROUS 3.1 mg/dL (2.5-4.9); TOT PROT 6.4 g/dl (6.4-8.2)
--- NOTE | 2019-04-26 11:47 | PN ---
Progress Note, P[employer]AGE [employer]PER - Note Progress Note: Selected Entries 04/24/19 04/24/19 04/24/19 06:00 10:00 15:06 Supper Temperature 98.0 F 97.4 F L 97.9 F 04/24/19 04/25/19 04/25/19 18:20 11:32 15:24 Supper Temperature 98.5 F 98.8 F 98.7 F 04/25/19 04/25/19 04/26/19 18:28 22:00 02:00 Supper NPO Temperature 97.9 F 97.6 F 04/26/19 06:00 Supper Temperature 97.6 F Laboratory Tests 04/22/19 04/23/19 04/24/19 06:45 06:30 11:10 WBC 14.7 H 13.8 H 11.7 H 04/25/19 04/26/19 08:19 08:47 WBC 11.2 H 8.7 PMV performed last on 04/23 for 3 1/4 hours. It has been held as pt has been vomiting intermittently. Pt vomited moderate amount yesterday, per EMR. Plan- PMV/MBS once pt can tolerate TF without emesis.
[2019-04-26] MEDS: POTASSIUM CHLORIDE ORAL LIQUID 20 MEQ/15 ML PO SCH (12:36)
[2019-04-26] MEDS: FINASTERIDE 5 MG TABLET (FP) PO SCH (12:37)
[2019-04-26] MEDS: SODIUM BICARBONATE 650 MG TABLET GT SCH (12:37)
[2019-04-26] MEDS: MULTIVIT-MINERALS ORAL LIQUID PEG SCH (12:37)
[2019-04-26] MEDS: FUROSEMIDE 20 MG TABLET (FP) GT SCH (12:37)
[2019-04-26] MEDS: PANTOPRAZOLE SOD 40 MG SUSPENSION PACKET NGT SCH (12:37)
[2019-04-26] MEDS: ARTIFICIAL TEARS (POLYVINYL ALCOHOL) OPTH DROPS OU SCH ×4 (12:39→23:26)
--- NOTE | 2019-04-26 12:57 | PN ---
Progress Note (short form) - Note Progress Note: Renal follow up for PÉREZ Seen and examined at the bedside awake and alert off tube feeds making urine from penis and nephrostomy tubes no fevers Vital Signs Temperature 97.6 F 04/26/19 06:00 Pulse Rate 90 04/26/19 12:56 Respiratory Rate 25 H 04/26/19 12:56 Blood Pressure 115/75 04/26/19 12:56 O2 Sat by Pulse Oximetry (%) 98 04/26/19 12:18 Intake & Output 04/23/19 04/24/19 04/25/19 04/26/19 23:59 23:59 23:59 23:59 Intake Total 0 1230 380 900 Output Total 875 50 35 Balance -875 1180 345 900 NAD awake and alert neck supple RRR CTA soft NT/ND + upper and lower extremity edema CBC, BMP 04/26/19 08:47 04/26/19 08:47 Current Medications Artificial Tears (Artificial Tears) 1 drop OU QID [facility] Last Admin: 04/26/19 14:08 Dose: 1 drop Diltiazem HCl (Cardizem -) 30 mg PO Q6HPO [facility] Last Admin: 04/26/19 13:53 Dose: 30 mg Finasteride (Proscar -) 5 mg PO DAILY [facility] Last Admin: 04/26/19 12:37 Dose: 5 mg Furosemide (Lasix -) 20 mg GT DAILY [facility] Last Admin: 04/26/19 12:37 Dose: 20 mg Dextrose (D5w -) 1,000 mls @ 80 mls/hr IV ASDIR [facility] Last Admin: 04/26/19 06:28 Dose: 80 mls/hr Insulin Aspart (Novolog Vial Sliding Scale -) 1 vial SQ ACHS [facility]; Protocol Last Admin: 04/26/19 12:55 Dose: Not Given Metoclopramide HCl (Reglan Oral Solution -) 5 mg PEG TIDAC [facility] Metoprolol Tartrate (Lopressor -) 50 mg PEG Q6HPO [facility] Last Admin: 04/26/19 12:37 Dose: 50 mg Metoprolol Tartrate (Lopressor Injection -) 5 mg IVPB Q4H PRN PRN Reason: HYPERTENSION Metoprolol Tartrate (Lopressor Injection -) 10 mg IVPB Q4H PRN PRN Reason: TACHYCARDIA Multivitamins/Minerals (Certavite-Antioxidant Liquid) 15 ml PEG DAILY [facility] Last Admin: 04/26/19 12:37 Dose: 15 ml Pantoprazole Sodium (Protonix Packets For Oral Suspension -) 40 mg NGT DAILY [facility] Last Admin: 04/26/19 12:37 Dose: 40 mg Potassium Chloride (Potassium Chloride Oral Liquid) 20 meq PO DAILY [facility] Last Admin: 04/26/19 12:36 Dose: 20 meq Sodium Bicarbonate (Sodium Bicarbonate -) 650 mg GT DAILY [facility] Last Admin: 04/26/19 12:37 Dose: 650 mg Sodium Chloride (Normal Saline For Inhalation -) 3 ml IH Q6H PRN PRN Reason: COUGH Last Admin: 04/22/19 22:10 Dose: 3 ml 83 year old gentleman with history of respiratory failure on vent via trach, prostate cancer s/p radiation therapy, CAD s/p CABG, hypertension, DM who presented from [place] with coffee ground emesis who has developed acute kidney injury during the hospital admission. 1. Acute kidney injury secondary to pre-renal injury vs. contrast nephropathy 2. Hypernatremia 3. Acute on chornic anemia with suspected GI bleed 4. Chronic respiratory failure on vent 5. Leukocytoiss 6. BPH/Prostate cancer Renal function stable, no overt electrolyte abnormalities Urine studies show FeNa of 0.6% consistent with pre-renal vs. contrast nephropathy. Continue Laisx 20mg via GT daily Urology consult for possible nephrostomy tube removal Continue oral feeds and free water continue proscar continue vent support Thank you Andrew Finney DO
[2019-04-26] MEDS ORDERED: PT OWN MED DRAWER 7, Y5N ONE ×2 (13:38→23:12)
--- NOTE | 2019-04-26 14:58 | CON.GU ---
Consult Consult Specialty:: Reason for Consultation:: nephrostomy tube eval - History of Present Illness Chief Complaint: GI bleed History of Present Illness: 83 year old gentleman with history of respiratory failure on vent via trach, prostate cancer s/p radiation therapy, CAD s/p CABG, hypertension, DM who presented from [place] with coffee ground emesis who has developed acute kidney injury during the hospital admission. Cr on admission was 1.1 and now has peaked to 1.9. s/p contrast exposure on 04/15 for CTA. Also noted to have slight hypotension during that same time period as well. no other nephrotoxic exposures noted. Making urine via penis > nephrostomy tubes. CT done on 04-20 showed no hydronephrosis. Pt is awake and alert but not able to provide history. cons req. PMHx: as above Allergies: NKDA Family Hx: NC Social Hx: No T/A/D ROS: unable to obtain because of clinical status - Past Medical History Cardio/Vascular: Yes: Aneurysm, CAD, HTN, Hyperlipdemia Pulmonary: Yes: COPD, Pneumonia, Other (trach/vent dependent) Renal/: Yes: Renal Failure Endocrine: Yes: Diabetes Mellitus - Past Surgical History Past Surgical History: Yes: AAA Repair, CABG - Alcohol/Substance Use Hx Alcohol Use: No History of Substance Use: reports: None - Smoking History Smoking history: Unknown if ever smoked Have you smoked in the past 12 months: No - Social History ADL: Support Services History of Recent Travel: No Home Medications - Allergies Allergies/Adverse Reactions: Allergies Allergy/AdvReac Type Severity Reaction Status Date / Time chlorhexidine Allergy Verified 03/30/19 21:38 - Home Medications Home Medications: Ambulatory Orders Acetaminophen 325 mg PO BID 03/31/19 Cyanocobalamin Vit B-12 Inj. [Redisol] 1,000 mcg IM DAILY 03/31/19 Diltiazem [Cardizem -] 30 mg PO QID 03/31/19 Escitalopram Oxalate [Lexapro -] 20 mg PO ONCE 03/31/19 Ferrous Sulfate [Feosol] 300 mg GT ONCE 03/31/19 Finasteride 5 mg PO DAILY 03/31/19 Insulin Lispro [Humalog] 100 unit SQ DAILY 03/31/19 Latanoprost/Pf [Latanoprost 0.005% Eye Drop] 7.5 ml OP ONCE 03/31/19 Lisinopril 5 mg PO ONCE 03/31/19 Metoprolol Tartrate 50 mg PO Q6H 03/31/19 Risperidone 0.5 mg PO TID 03/31/19 Bimatoprost [Lumigan] 1 drop OU DAILY 04/26/19 Physical Exam- Vital Signs: Vital Signs Temperature 97.6 F 04/26/19 06:00 Pulse Rate 90 04/26/19 12:56 Respiratory Rate 25 H 04/26/19 12:56 Blood Pressure 115/75 04/26/19 12:56 O2 Sat by Pulse Oximetry (%) 98 04/26/19 12:18 Constitutional: Yes: No Distress Gastrointestinal: Yes: Soft Renal/: Yes: Other (bilat neph tubes) Kidneys: Yes: WNL Pelvis: Yes: WNL Testicles: Yes: WNL Scrotum: Yes: WNL Penis: Yes: WNL Prostate Exam: Yes: Swollen Labs: CBC, BMP 04/26/19 08:47 04/26/19 08:47 Imaging - Results X-ray: Image Reviewed Cat Scan: Image Reviewed Ultrasound: Report Reviewed Problem List - Problems (1) PÉREZ (acute kidney injury) Code(s): N17.9 - ACUTE KIDNEY FAILURE, UNSPECIFIED (2) Acute and chronic respiratory failure Code(s): J96.20 - ACUTE AND CHR RESP FAILURE, UNSP W HYPOXIA OR HYPERCAPNIA (3) Hydronephrosis Assessment/Plan: obtain bilat nephrostograms, if no obstruction would clamp neph tubes for 24 hrs and then remove if tolerates clamping w/o fever,flank pian or leakage of urine around neph tube sites. Code(s): N13.30 - UNSPECIFIED HYDRONEPHROSIS (4) ESRD (end stage renal disease) Code(s): N18.6 - END STAGE RENAL DISEASE (5) GI bleed Code(s): K92.2 - GASTROINTESTINAL HEMORRHAGE, UNSPECIFIED
[2019-04-26 15:07] VITALS: BMI 32.8
[2019-04-26] MEDS: METOCLOPRAMIDE HCL 5 MG/5 ML UNIT DOSE CUP PEG SCH (18:12)
[2019-04-27] MEDS: INSULIN SLIDING SCALE (NOVOLOG) 1 VIAL SQ SCH (06:40)
[2019-04-27] MEDS: METOPROLOL TARTRATE 50 MG TABLET (FP) PEG SCH ×4 (06:49→23:07)
[2019-04-27] MEDS: METOCLOPRAMIDE HCL 5 MG/5 ML UNIT DOSE CUP PEG SCH ×3 (06:49→17:52)
[2019-04-27] MEDS: dilTIAZem HCL 30 MG TABLET (FP) PO SCH ×4 (06:49→23:07)
[2019-04-27 10:20] LABS: BASO % 0.2 % (0-2.0); EOS % 1.7 % (0-4.5); HEMATOCRIT 27.6 % (35.4-49); HEMOGLOBIN 8.8 GM/dL (11.7-16.9); LYMPH % 4.3 % (8-40); MCH 31.1 pg (25.7-33.7); MEAN CELL VOLUME 97.1 fl (80-96); MEAN PLT VOLUME 9.5 fl (7.5-11.1); MONO % 4.1 % (3.8-10.2); NEUT % 89.7 % (42.8-82.8); PLATELET COUNT 175 K/MM3 (134-434); RBC 2.84 M/mm3 (4.00-5.60); RDW 23.8 % (11.9-15.9); WHITE BLOOD COUNT 11.3 K/mm3 (4.0-10.0)
[2019-04-27 10:37] LABS: CALCIUM 7.2 mg/dL (8.5-10.1); MAGNESIUM 1.8 mg/dL (1.8-2.4); PHOSPHOROUS 3.1 mg/dL (2.5-4.9); POTASSIUM 4.1 mmol/L (3.5-5.1)
--- NOTE | 2019-04-27 10:37 | PN ---
Progress Note, Physician Chief Complaint: Acute on Chronic Respiratory Failure UTI Ascites History of Present Illness: mechanical vent H/H stable returned from EGD- source of bleeding still unidentifiable + melena/hematochezia Family frustrated of not being able to understand the source of emerging chronic and acute issues, mainly bleeding Has had bleeding from bladder in the past at [facility]-records reviewed Had rectal bleed in 04/2018, went to [facility] in [place], await records Awaiting records from [facility] and [facility] 04/22/18: Awake and alert Started on reglan SSRI discontinued due to interaction PEG residual 50 cc this AM 04/26/19 Vomited yesterday Tube feeds held GI aware Was on IV reglan, was dc'd? : Tolerating feedings Seen by Urology Awaiting Nephrostogram to see if Nephrostomy tubes can be discontinued - Current Medication List Current Medications: Active Medications Artificial Tears (Artificial Tears) 1 drop OU QID [facility] Last Admin: 04/26/19 23:26 Dose: 1 drop Diltiazem HCl (Cardizem -) 30 mg PO Q6HPO [facility] Last Admin: 04/27/19 06:49 Dose: 30 mg Finasteride (Proscar -) 5 mg PO DAILY [facility] Last Admin: 04/26/19 12:37 Dose: 5 mg Furosemide (Lasix -) 20 mg GT DAILY [facility] Last Admin: 04/26/19 12:37 Dose: 20 mg Insulin Aspart (Novolog Vial Sliding Scale -) 1 vial SQ [facility]; Protocol Last Admin: 04/27/19 06:40 Dose: Not Given Metoclopramide HCl (Reglan Oral Solution -) 5 mg PEG TIDAC [facility] Last Admin: 04/27/19 06:49 Dose: 5 mg Metoprolol Tartrate (Lopressor -) 50 mg PEG Q6HPO [facility] Last Admin: 04/27/19 06:49 Dose: 50 mg Metoprolol Tartrate (Lopressor Injection -) 5 mg IVPB Q4H PRN PRN Reason: HYPERTENSION Metoprolol Tartrate (Lopressor Injection -) 10 mg IVPB Q4H PRN PRN Reason: TACHYCARDIA Multivitamins/Minerals (Certavite-Antioxidant Liquid) 15 ml PEG DAILY [facility] Last Admin: 04/26/19 12:37 Dose: 15 ml Pantoprazole Sodium (Protonix Packets For Oral Suspension -) 40 mg NGT DAILY [facility] Last Admin: 04/26/19 12:37 Dose: 40 mg Potassium Chloride (Potassium Chloride Oral Liquid) 20 meq PO DAILY [facility] Last Admin: 04/26/19 12:36 Dose: 20 meq Sodium Bicarbonate (Sodium Bicarbonate -) 650 mg GT DAILY [facility] Last Admin: 04/26/19 12:37 Dose: 650 mg Sodium Chloride (Normal Saline For Inhalation -) 3 ml IH Q6H PRN PRN Reason: COUGH Last Admin: 04/22/19 22:10 Dose: 3 ml - Objective Vital Signs: Vital Signs Temperature 98 F 04/26/19 22:00 Pulse Rate 92 H 04/26/19 22:00 Respiratory Rate 14 04/27/19 08:48 Blood Pressure 120/70 04/26/19 22:00 O2 Sat by Pulse Oximetry (%) 100 04/26/19 21:00 Constitutional: Yes: Well Nourished, No Distress, Calm Cardiovascular: Yes: Pulse Irregular Respiratory: Yes: Mechanically Ventilated Gastrointestinal: Yes: Normal Bowel Sounds, Soft, Abdomen, Obese Genitourinary: Yes: Incontinence Musculoskeletal: Yes: Muscle Weakness Extremities: Yes: WNL Edema: Yes (generalized) Peripheral Pulses WNL: Yes Integumentary: Yes: Pressure Ulcer (Stage 4 sacral) Wound/Incision: Yes: Dressing Dry and Intact Neurological: Yes: Alert, Oriented Psychiatric: Yes: Alert, Oriented Labs: CBC, BMP 04/27/19 09:42 INR, PTT INR 1.43 (0.83-1.09) H 04/18/19 05:20 Fibrinogen 295.0 mg/dL (238-498) 04/16/19 05:30 Problem List - Problems (1) PÉREZ (acute kidney injury) Assessment/Plan: -Nephrology consult -monitor trend -Cr stable -Renal U/S reviewed -Furosemide low dose 20 mg GT daily Problems reviewed: Yes Code(s): N17.9 - ACUTE KIDNEY FAILURE, UNSPECIFIED (2) Vomiting Assessment/Plan: -Continue Reglan 10 mg AC -GI on baord -abd xray reviewed -Tube feedings being titrated up to goal rate of 45 cc/hr, currently running at 40 cc/hr Problems reviewed: Yes Code(s): R11.10 - VOMITING, UNSPECIFIED (3) Nephrostomy status Assessment/Plan: -BL -Seen by Urology -Await Nephrostogram to d/c nephrostomy tubes Problems reviewed: Yes Code(s): Z93.6 - OTHER ARTIFICIAL OPENINGS OF URINARY TRACT STATUS (4) Macular degeneration Assessment/Plan: -Family's complaint of pt having macular degeneration - will get ophthalmology consult Problems reviewed: Yes Code(s): H35.30 - UNSPECIFIED MACULAR DEGENERATION Assessment/Plan (1) Acute and chronic respiratory failure Assessment/Plan: -Pulm on board -Mechanically Ventilated -keep SpO2 >90% -CXR shows cardiomegaly, left basilar compressive atelectasis, left pleural effusion, right pleural effusion -Sputum Culture positive for MRSA -Encourage use of passy berta valve daily Code(s): J96.20 - ACUTE AND CHR RESP FAILURE, UNSP W HYPOXIA OR HYPERCAPNIA (2) Anemia Assessment/Plan: -Stable -monitor Hg weekly outpatient and transfuse for Hg <7.0 to avoid fluid overload -GI and Hematology on board Code(s): D64.9 - ANEMIA, UNSPECIFIED (3) Atrial flutter Assessment/Plan: -Metoprolol and Cardizem -Cardiology on board -Rate controlled now Code(s): I48.92 - UNSPECIFIED ATRIAL FLUTTER (4) COPD (chronic obstructive pulmonary disease) Assessment/Plan: -Pulm on board -Mechanically Ventilated -keep SpO2 >90% Code(s): J44.9 - CHRONIC OBSTRUCTIVE PULMONARY DISEASE, UNSPECIFIED (5) Diabetes mellitus Assessment/Plan: -BGM ACHS -ISS Code(s): E11.9 - TYPE 2 DIABETES MELLITUS WITHOUT COMPLICATIONS (6) GI bleed Assessment/Plan: -GI on board -Pantoprazole GT -EGD-unable to identify the source of bleeding -CT Abd/pelvis was negative for SBO Code(s): K92.2 - GASTROINTESTINAL HEMORRHAGE, UNSPECIFIED (7) HTN (hypertension) Assessment/Plan: -Metoprolol + Cardizem Code(s): I10 - ESSENTIAL (PRIMARY) HYPERTENSION (8) SBO (small bowel obstruction) Assessment/Plan: -CTAP shows no evidence of bowel obstruction -GI on board Code(s): K56.609 - UNSP INTESTNL OBST, UNSP TO PARTIAL VERSUS COMPLETE OBST (9) Ascites Assessment/Plan: -s/p paracentesis tis admission -Ascites Fluid specimen noted albumin 1.8 with elevated globulins, 2+ proteinuria, macrocytic anemia raise suspicion for hematologic malingnancy -Hematology on board Code(s): R18.8 - OTHER ASCITES (10) Sepsis Assessment/Plan: -ID on board -Leukocytosis -afebrile -Sputum Culture positive for MRSA -BC neg -UC positive ESBL, Klebsiella -Completed course of Zosyn -Off IV abx Code(s): A41.9 - SEPSIS, UNSPECIFIED ORGANISM Assessment/Plan see problem list dvt ppx
[2019-04-27] MEDS ORDERED: PT OWN MED DRAWER 7, Y5N ONE ×2 (10:52→18:25)
[2019-04-27] MEDS: POTASSIUM CHLORIDE ORAL LIQUID 20 MEQ/15 ML PO SCH (11:12)
[2019-04-27] MEDS: MULTIVIT-MINERALS ORAL LIQUID PEG SCH (11:12)
[2019-04-27] MEDS: FUROSEMIDE 20 MG TABLET (FP) GT SCH ×3 (11:13→17:09)
[2019-04-27] MEDS: SODIUM BICARBONATE 650 MG TABLET GT SCH (11:13)
[2019-04-27] MEDS: PANTOPRAZOLE SOD 40 MG SUSPENSION PACKET NGT SCH (11:13)
[2019-04-27] MEDS: FINASTERIDE 5 MG TABLET (FP) PO SCH (11:13)
[2019-04-27] MEDS: ARTIFICIAL TEARS (POLYVINYL ALCOHOL) OPTH DROPS OU SCH ×4 (11:15→23:09)
--- NOTE | 2019-04-27 11:15 | PN ---
Progress Note (short form) - Note Progress Note: Vented. Awake on AC Mode. No fevers recorded. No acute events overnight. Intake & Output 04/24/19 04/25/19 04/26/19 04/27/19 23:59 23:59 23:59 23:59 Intake Total 1230 380 900 0 Output Total 50 35 Balance 1180 345 900 0 Last Vital Signs Temp Pulse Resp BP Pulse Ox 98 F 76 14 100/60 100 04/26/19 22:00 04/27/19 11:11 04/27/19 08:48 04/27/19 11:11 04/26/19 21:00 Active Medications Artificial Tears (Artificial Tears) 1 drop OU QID [facility] Last Admin: 04/26/19 23:26 Dose: 1 drop Diltiazem HCl (Cardizem -) 30 mg PO Q6HPO [facility] Last Admin: 04/27/19 06:49 Dose: 30 mg Finasteride (Proscar -) 5 mg PO DAILY [facility] Last Admin: 04/27/19 11:13 Dose: 5 mg Furosemide (Lasix -) 20 mg GT DAILY [facility] Last Admin: 04/27/19 11:13 Dose: Not Given Metoclopramide HCl (Reglan Oral Solution -) 5 mg PEG TIDAC [facility] Last Admin: 04/27/19 11:12 Dose: 5 mg Metoprolol Tartrate (Lopressor -) 50 mg PEG Q6HPO [facility] Last Admin: 04/27/19 06:49 Dose: 50 mg Metoprolol Tartrate (Lopressor Injection -) 5 mg IVPB Q4H PRN PRN Reason: HYPERTENSION Metoprolol Tartrate (Lopressor Injection -) 10 mg IVPB Q4H PRN PRN Reason: TACHYCARDIA Multivitamins/Minerals (Certavite-Antioxidant Liquid) 15 ml PEG DAILY [facility] Last Admin: 04/27/19 11:12 Dose: 15 ml Pantoprazole Sodium (Protonix Packets For Oral Suspension -) 40 mg NGT DAILY [facility] Last Admin: 04/27/19 11:13 Dose: 40 mg Potassium Chloride (Potassium Chloride Oral Liquid) 20 meq PO DAILY [facility] Last Admin: 04/27/19 11:12 Dose: 20 meq Sodium Bicarbonate (Sodium Bicarbonate -) 650 mg GT DAILY [facility] Last Admin: 04/27/19 11:13 Dose: 650 mg Sodium Chloride (Normal Saline For Inhalation -) 3 ml IH Q6H PRN PRN Reason: COUGH Last Admin: 04/22/19 22:10 Dose: 3 ml Gen: vented, awake Heart: RRR Lung: Vented, decreased breath sounds at the bases Abd: soft, nontender Ext: + edema Laboratory Results - last 24 hr 04/26/19 04/26/19 04/26/19 08:47 12:53 18:16 WBC RBC Hgb Hct MCV MCH MCHC RDW Plt Count MPV Absolute Neuts (auto) Neutrophils % Lymphocytes % Monocytes % Eosinophils % Basophils % Nucleated RBC % Sodium Potassium Chloride Carbon Dioxide Anion Gap BUN Creatinine Est GFR (CKD-EPI)AfAm Est GFR (CKD-EPI)NonAf POC Glucometer 92 85 Random Glucose Hemoglobin A1c % 4.8 Calcium Phosphorus Magnesium 04/26/19 04/27/19 04/27/19 23:23 06:39 09:42 WBC RBC Hgb Hct MCV MCH MCHC RDW Plt Count MPV Absolute Neuts (auto) Neutrophils % Lymphocytes % Monocytes % Eosinophils % Basophils % Nucleated RBC % Sodium 140 Potassium 4.1 Chloride 111 H Carbon Dioxide 21 Anion Gap 8 BUN 37.0 H Creatinine 2.0 H Est GFR (CKD-EPI)AfAm 34.98 Est GFR (CKD-EPI)NonAf 30.18 POC Glucometer 93 99 Random Glucose 108 H Hemoglobin A1c % Calcium 7.2 L Phosphorus 3.1 Magnesium 1.8 04/27/19 09:42 WBC 11.3 H RBC 2.84 L Hgb 8.8 L Hct 27.6 L MCV 97.1 H MCH 31.1 MCHC 32.0 RDW 23.8 H Plt Count 175 MPV 9.5 Absolute Neuts (auto) 10.1 H Neutrophils % 89.7 H Lymphocytes % 4.3 L D Monocytes % 4.1 Eosinophils % 1.7 Basophils % 0.2 Nucleated RBC % 0 Sodium Potassium Chloride Carbon Dioxide Anion Gap BUN Creatinine Est GFR (CKD-EPI)AfAm Est GFR (CKD-EPI)NonAf POC Glucometer Random Glucose Hemoglobin A1c % Calcium Phosphorus Magnesium A/P Acute on Chronic Respiratory Failure Suspected UTI/Pneumonia/Sepsis Lactic Acidosis Atrial Flutter with RVR Anemia CAD s/p CABG COPD HTN Hyperlipidemia Ascites - workup ongoing - Off ABX Per ID - protonix - monitor H/H - Rate control - enteral feeds as tolerated - DVT/GI prophylaxis - DC planning Dr Castro
[2019-04-27 14:22] LABS: ANISOCYTOSIS 1+; MACROCYTOSIS 1+; PLATELET ESTIMATE NORMAL
--- NOTE | 2019-04-27 14:45 | PN ---
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 No vomiting today. Suggest PMV/MBS if stable medically.
--- NOTE | 2019-04-27 16:27 | PN ---
Progress Note (short form) - Note Progress Note: Renal follow up for PÉREZ Seen and examined at the bedside awake and alert no acute complaints on Vent making urine on tube feeds remains swollen Vital Signs Temperature 98.4 F 04/27/19 14:00 Pulse Rate 68 04/27/19 15:00 Respiratory Rate 30 H 04/27/19 15:00 Blood Pressure 90/60 04/27/19 15:00 O2 Sat by Pulse Oximetry (%) 100 04/26/19 21:00 Intake & Output 04/24/19 04/25/19 04/26/19 04/27/19 23:59 23:59 23:59 23:59 Intake Total 1230 380 900 0 Output Total 50 35 33 Balance 1180 345 900 -33 NAD awake and alert neck supple RRR CTA soft NT/ND + upper and lower extremity edema CBC, BMP 04/27/19 09:42 04/27/19 09:42 Current Medications Artificial Tears (Artificial Tears) 1 drop OU QID [facility] Last Admin: 04/27/19 14:49 Dose: 1 drop Diltiazem HCl (Cardizem -) 30 mg PO Q6HPO [facility] Last Admin: 04/27/19 12:51 Dose: 30 mg Finasteride (Proscar -) 5 mg PO DAILY [facility] Last Admin: 04/27/19 11:13 Dose: 5 mg Furosemide (Lasix -) 20 mg GT BID [facility] Metoclopramide HCl (Reglan Oral Solution -) 5 mg PEG TIDAC [facility] Last Admin: 04/27/19 11:12 Dose: 5 mg Metoprolol Tartrate (Lopressor -) 50 mg PEG Q6HPO [facility] Last Admin: 04/27/19 12:51 Dose: 50 mg Metoprolol Tartrate (Lopressor Injection -) 5 mg IVPB Q4H PRN PRN Reason: HYPERTENSION Metoprolol Tartrate (Lopressor Injection -) 10 mg IVPB Q4H PRN PRN Reason: TACHYCARDIA Multivitamins/Minerals (Certavite-Antioxidant Liquid) 15 ml PEG DAILY [facility] Last Admin: 04/27/19 11:12 Dose: 15 ml Pantoprazole Sodium (Protonix Packets For Oral Suspension -) 40 mg NGT DAILY [facility] Last Admin: 04/27/19 11:13 Dose: 40 mg Potassium Chloride (Potassium Chloride Oral Liquid) 20 meq PO DAILY [facility] Last Admin: 04/27/19 11:12 Dose: 20 meq Sodium Bicarbonate (Sodium Bicarbonate -) 650 mg GT DAILY [facility] Last Admin: 04/27/19 11:13 Dose: 650 mg Sodium Chloride (Normal Saline For Inhalation -) 3 ml IH Q6H PRN PRN Reason: COUGH Last Admin: 04/22/19 22:10 Dose: 3 ml 83 year old gentleman with history of respiratory failure on vent via trach, prostate cancer s/p radiation therapy, CAD s/p CABG, hypertension, DM [place] with coffee ground emesis who has developed acute kidney injury during the hospital admission. 1. Acute kidney injury secondary to pre-renal injury vs. contrast nephropathy 2. Hypernatremia 3. Acute on chornic anemia with suspected GI bleed 4. Chronic respiratory failure on vent 5. Leukocytoiss 6. BPH/Prostate cancer Renal function stable, no overt electrolyte abnormalities Urine studies show FeNa of 0.6% consistent with pre-renal vs. contrast nephropathy. Increase Lasix to 20mg BID via GT Nephrostomy tube management as per Continue oral feeds and free water continue proscar continue vent support Thank you Andrew Finney DO
[2019-04-28] MEDS: METOPROLOL TARTRATE 50 MG TABLET (FP) PEG SCH ×5 (05:55→23:49)
[2019-04-28] MEDS: dilTIAZem HCL 30 MG TABLET (FP) PO SCH ×5 (05:55→23:49)
[2019-04-28] MEDS: FUROSEMIDE 20 MG TABLET (FP) GT SCH ×2 (05:55→14:51)
[2019-04-28] MEDS: METOCLOPRAMIDE HCL 5 MG/5 ML UNIT DOSE CUP PEG SCH ×3 (06:03→17:37)
--- NOTE | 2019-04-28 07:55 | PN ---
Progress Note (short form) - Note Progress Note: Vented. Awake on AC Mode. No fevers recorded. Apparently desaturated during the evening while being turned. Improved with suctioning. Now appears comfortable. Intake & Output 04/25/19 04/26/19 04/27/19 04/28/19 23:59 23:59 23:59 23:59 Intake Total 380 900 735 900 Output Total 35 33 Balance 345 900 702 900 Last Vital Signs Temp Pulse Resp BP Pulse Ox 98.7 F 94 H 25 H 140/93 100 04/28/19 05:00 04/28/19 05:00 04/28/19 05:00 04/28/19 05:00 04/27/19 20:35 Active Medications Artificial Tears (Artificial Tears) 1 drop OU QID [facility] Last Admin: 04/27/19 23:09 Dose: 1 drop Diltiazem HCl (Cardizem -) 30 mg PO Q6HPO [facility] Last Admin: 04/28/19 05:55 Dose: 30 mg Finasteride (Proscar -) 5 mg PO DAILY [facility] Last Admin: 04/27/19 11:13 Dose: 5 mg Furosemide (Lasix -) 20 mg GT BIDLASIX [facility] Last Admin: 04/28/19 05:55 Dose: 20 mg Metoclopramide HCl (Reglan Oral Solution -) 5 mg PEG TIDAC [facility] Last Admin: 04/28/19 06:03 Dose: 5 mg Metoprolol Tartrate (Lopressor -) 50 mg PEG Q6HPO [facility] Last Admin: 04/28/19 05:55 Dose: 50 mg Metoprolol Tartrate (Lopressor Injection -) 5 mg IVPB Q4H PRN PRN Reason: HYPERTENSION Metoprolol Tartrate (Lopressor Injection -) 10 mg IVPB Q4H PRN PRN Reason: TACHYCARDIA Multivitamins/Minerals (Certavite-Antioxidant Liquid) 15 ml PEG DAILY [facility] Last Admin: 04/27/19 11:12 Dose: 15 ml Pantoprazole Sodium (Protonix Packets For Oral Suspension -) 40 mg NGT DAILY [facility] Last Admin: 04/27/19 11:13 Dose: 40 mg Potassium Chloride (Potassium Chloride Oral Liquid) 20 meq PO DAILY [facility] Last Admin: 04/27/19 11:12 Dose: 20 meq Sodium Bicarbonate (Sodium Bicarbonate -) 650 mg GT DAILY [facility] Last Admin: 04/27/19 11:13 Dose: 650 mg Sodium Chloride (Normal Saline For Inhalation -) 3 ml IH Q6H PRN PRN Reason: COUGH Last Admin: 04/22/19 22:10 Dose: 3 ml Gen: vented, awake Heart: RRR Lung: Vented, decreased breath sounds at the bases Abd: soft, nontender Ext: + edema Laboratory Results - last 24 hr 04/27/19 04/27/19 04/27/19 09:42 09:42 11:59 WBC 11.3 H RBC 2.84 L Hgb 8.8 L Hct 27.6 L MCV 97.1 H MCH 31.1 MCHC 32.0 RDW 23.8 H Plt Count 175 MPV 9.5 Absolute Neuts (auto) 10.1 H Neutrophils % 89.7 H Lymphocytes % 4.3 L D Monocytes % 4.1 Eosinophils % 1.7 Basophils % 0.2 Nucleated RBC % 0 Hypochromia 0 Platelet Estimate Normal Polychromasia 1+ Poikilocytosis 0 Anisocytosis 1+ Microcytosis 1+ Macrocytosis 1+ Sodium 140 Potassium 4.1 Chloride 111 H Carbon Dioxide 21 Anion Gap 8 BUN 37.0 H Creatinine 2.0 H Est GFR (CKD-EPI)AfAm 34.98 Est GFR (CKD-EPI)NonAf 30.18 POC Glucometer 112 Random Glucose 108 H Calcium 7.2 L Phosphorus 3.1 Magnesium 1.8 A/P Acute on Chronic Respiratory Failure Suspected UTI/Pneumonia/Sepsis Lactic Acidosis Atrial Flutter with RVR Anemia CAD s/p CABG COPD HTN Hyperlipidemia Ascites - workup ongoing - Off ABX Per ID - protonix - monitor H/H - Rate control - enteral feeds as tolerated - DVT/GI prophylaxis Dr Castro
--- NOTE | 2019-04-28 10:07 | PN ---
Progress Note, Physician Chief Complaint: Acute on Chronic Respiratory Failure UTI Ascites History of Present Illness: mechanical vent H/H stable returned from EGD- source of bleeding still unidentifiable + melena/hematochezia Family frustrated of not being able to understand the source of emerging chronic and acute issues, mainly bleeding Has had bleeding from bladder in the past at [facility]-records reviewed Had rectal bleed in 04/2018, went to [facility] in [place], await records Awaiting records from LT and [facility] 04/22/18: Awake and alert Started on reglan SSRI discontinued due to interaction PEG residual 50 cc this AM 04/26/19 Vomited yesterday Tube feeds held GI aware Was on IV reglan, was dc'd? : Tolerating feedings Seen by Urology Nephrostogram done, awaiting final read - Current Medication List Current Medications: Active Medications Albuterol Sulfate (Ventolin 0.083% Nebulizer Soln -) 1 amp NEB Q4H PRN PRN Reason: SHORT OF BREATH/WHEEZING Artificial Tears (Artificial Tears) 1 drop OU QID [facility] Last Admin: 04/27/19 23:09 Dose: 1 drop Diltiazem HCl (Cardizem -) 30 mg PO Q6HPO [facility] Last Admin: 04/28/19 05:55 Dose: 30 mg Finasteride (Proscar -) 5 mg PO DAILY [facility] Last Admin: 04/27/19 11:13 Dose: 5 mg Furosemide (Lasix -) 20 mg GT BIDLASIX [facility] Last Admin: 04/28/19 05:55 Dose: 20 mg Metoclopramide HCl (Reglan Oral Solution -) 5 mg PEG TIDAC [facility] Last Admin: 04/28/19 06:03 Dose: 5 mg Metoprolol Tartrate (Lopressor -) 50 mg PEG Q6HPO [facility] Last Admin: 04/28/19 05:55 Dose: 50 mg Metoprolol Tartrate (Lopressor Injection -) 5 mg IVPB Q4H PRN PRN Reason: HYPERTENSION Metoprolol Tartrate (Lopressor Injection -) 10 mg IVPB Q4H PRN PRN Reason: TACHYCARDIA Multivitamins/Minerals (Certavite-Antioxidant Liquid) 15 ml PEG DAILY [facility] Last Admin: 04/27/19 11:12 Dose: 15 ml Pantoprazole Sodium (Protonix Packets For Oral Suspension -) 40 mg NGT DAILY [facility] Last Admin: 04/27/19 11:13 Dose: 40 mg Potassium Chloride (Potassium Chloride Oral Liquid) 20 meq PO DAILY [facility] Last Admin: 04/27/19 11:12 Dose: 20 meq Sodium Bicarbonate (Sodium Bicarbonate -) 650 mg GT DAILY [facility] Last Admin: 04/27/19 11:13 Dose: 650 mg Sodium Chloride (Normal Saline For Inhalation -) 3 ml IH Q6H PRN PRN Reason: COUGH Last Admin: 04/22/19 22:10 Dose: 3 ml - Objective Vital Signs: Vital Signs Temperature 98.7 F 04/28/19 05:00 Pulse Rate 78 04/28/19 08:25 Respiratory Rate 26 H 04/28/19 08:25 Blood Pressure 140/93 04/28/19 05:00 O2 Sat by Pulse Oximetry (%) 100 04/28/19 08:25 Constitutional: Yes: Well Nourished, No Distress, Calm Cardiovascular: Yes: Regular Rate and Rhythm Respiratory: Yes: Mechanically Ventilated, Rhonchi (diffuse) Gastrointestinal: Yes: Normal Bowel Sounds, Soft, Abdomen, Obese Musculoskeletal: Yes: Muscle Weakness Extremities: Yes: WNL Edema: Yes (generalized) Peripheral Pulses WNL: Yes Neurological: Yes: Alert, Oriented Psychiatric: Yes: Alert, Oriented Labs: CBC, BMP 04/27/19 09:42 INR, PTT INR 1.43 (0.83-1.09) H 04/18/19 05:20 Fibrinogen 295.0 mg/dL (238-498) 04/16/19 05:30 Problem List - Problems (1) PÉREZ (acute kidney injury) Assessment/Plan: -Nephrology consult -monitor trend -Cr stable -Renal U/S reviewed -Furosemide low dose 20 mg GT daily Problems reviewed: Yes Code(s): N17.9 - ACUTE KIDNEY FAILURE, UNSPECIFIED (2) Vomiting Assessment/Plan: -Continue Reglan 10 mg AC -GI on baord -abd xray reviewed -Tube feedings titrated up to goal rate of 45 cc/hr-tolerating well Problems reviewed: Yes Code(s): R11.10 - VOMITING, UNSPECIFIED (3) Nephrostomy status Assessment/Plan: -BL -Seen by Urology -Await Nephrostogram results to determine whether nephrostomy tubes can be discontinued Problems reviewed: Yes Code(s): Z93.6 - OTHER ARTIFICIAL OPENINGS OF URINARY TRACT STATUS (4) Macular degeneration Assessment/Plan: -Family's complaint of pt having macular degeneration - will get ophthalmology consult-still pending consult Problems reviewed: Yes Code(s): H35.30 - UNSPECIFIED MACULAR DEGENERATION Assessment/Plan (1) Acute and chronic respiratory failure Assessment/Plan: -Pulm on board -Mechanically Ventilated -keep SpO2 >90% -CXR shows cardiomegaly, left basilar compressive atelectasis, left pleural effusion, right pleural effusion -Sputum Culture positive for MRSA -Encourage use of passy berta valve daily -MBS when stable Code(s): J96.20 - ACUTE AND CHR RESP FAILURE, UNSP W HYPOXIA OR HYPERCAPNIA (2) Anemia Assessment/Plan: -Stable -monitor Hg weekly outpatient and transfuse for Hg <7.0 to avoid fluid overload -GI and Hematology on board Code(s): D64.9 - ANEMIA, UNSPECIFIED (3) Atrial flutter Assessment/Plan: -Metoprolol and Cardizem -Cardiology on board -Rate controlled now Code(s): I48.92 - UNSPECIFIED ATRIAL FLUTTER (4) COPD (chronic obstructive pulmonary disease) Assessment/Plan: -Pulm on board -Mechanically Ventilated -keep SpO2 >90% Code(s): J44.9 - CHRONIC OBSTRUCTIVE PULMONARY DISEASE, UNSPECIFIED (5) Diabetes mellitus Assessment/Plan: -BGM ACHS -ISS Code(s): E11.9 - TYPE 2 DIABETES MELLITUS WITHOUT COMPLICATIONS (6) GI bleed Assessment/Plan: -GI on board -Pantoprazole GT -EGD-unable to identify the source of bleeding -CT Abd/pelvis was negative for SBO Code(s): K92.2 - GASTROINTESTINAL HEMORRHAGE, UNSPECIFIED (7) HTN (hypertension) Assessment/Plan: -Metoprolol + Cardizem Code(s): I10 - ESSENTIAL (PRIMARY) HYPERTENSION (8) SBO (small bowel obstruction) Assessment/Plan: -CTAP shows no evidence of bowel obstruction -GI on board Code(s): K56.609 - UNSP INTESTNL OBST, UNSP TO PARTIAL VERSUS COMPLETE OBST (9) Ascites Assessment/Plan: -s/p paracentesis tis admission -Ascites Fluid specimen noted albumin 1.8 with elevated globulins, 2+ proteinuria, macrocytic anemia raise suspicion for hematologic malingnancy -Hematology on board Code(s): R18.8 - OTHER ASCITES (10) Sepsis Assessment/Plan: -ID on board -Leukocytosis -afebrile -Sputum Culture positive for MRSA -BC neg -UC positive ESBL, Klebsiella -Completed course of Zosyn -Off IV abx Code(s): A41.9 - SEPSIS, UNSPECIFIED ORGANISM Assessment/Plan see problem list dvt ppx
[2019-04-28 10:18] LABS: BLOOD UREA NITROGEN 37.5 mg/dL (7-18); CALCIUM 7.4 mg/dL (8.5-10.1); MAGNESIUM 1.8 mg/dL (1.8-2.4); PHOSPHOROUS 2.9 mg/dL (2.5-4.9); POTASSIUM 4.7 mmol/L (3.5-5.1)
[2019-04-28] MEDS ORDERED: PT OWN MED DRAWER 7, Y5N ONE ×2 (10:52→11:35)
[2019-04-28] MEDS: FINASTERIDE 5 MG TABLET (FP) PO SCH (11:01)
[2019-04-28] MEDS: SODIUM BICARBONATE 650 MG TABLET GT SCH (11:01)
[2019-04-28] MEDS: POTASSIUM CHLORIDE ORAL LIQUID 20 MEQ/15 ML PO SCH (11:01)
[2019-04-28] MEDS: PANTOPRAZOLE SOD 40 MG SUSPENSION PACKET NGT SCH (11:01)
[2019-04-28] MEDS: ARTIFICIAL TEARS (POLYVINYL ALCOHOL) OPTH DROPS OU SCH ×4 (11:02→23:26)
--- NOTE | 2019-04-28 13:39 | PN ---
ADRIANO Perez Note History of Present Illness: pt w/o c/o - Objective Vital Signs: Vital Signs Temperature 98.4 F 04/28/19 11:00 Pulse Rate 79 04/28/19 11:44 Respiratory Rate 24 H 04/28/19 11:44 Blood Pressure 140/70 04/28/19 11:44 O2 Sat by Pulse Oximetry (%) 100 04/28/19 08:25 Gastrointestinal: Yes: Normal Bowel Sounds, Soft Genitourinary: Yes: WNL Labs/Additional Data: CBC, BMP 04/27/19 09:42 04/28/19 09:20 INR, PTT INR 1.43 (0.83-1.09) H 04/18/19 05:20 Fibrinogen 295.0 mg/dL (238-498) 04/16/19 05:30 Blood Type Blood Type O NEGATIVE 04/16/19 05:30 Antibody Screen Negative 04/16/19 05:30 Imaging - Results Other: Image Reviewed, Other (bilat nephrostograms) Problem List - Problems (1) PÉREZ (acute kidney injury) Code(s): N17.9 - ACUTE KIDNEY FAILURE, UNSPECIFIED (2) Acute and chronic respiratory failure Code(s): J96.20 - ACUTE AND CHR RESP FAILURE, UNSP W HYPOXIA OR HYPERCAPNIA (3) Hydronephrosis Assessment/Plan: pt tolerated clamping of neph tubes overnight, therefore I removed them and 16 fr bryant inserted to monitor u/o. pls remove bryant when clinical condition improves Code(s): N13.30 - UNSPECIFIED HYDRONEPHROSIS (4) ESRD (end stage renal disease) Code(s): N18.6 - END STAGE RENAL DISEASE (5) GI bleed Code(s): K92.2 - GASTROINTESTINAL HEMORRHAGE, UNSPECIFIED
[2019-04-28] MEDS: NYSTATIN POWDER 100,000 UNITS/GM - 15 GM TOPICAL POWDER TP SCH ×2 (14:51→23:26)
[2019-04-28] MEDS: BACITRACIN 15 GM TUBE TOPICAL OINTMENT TP SCH ×2 (14:51→23:26)
[2019-04-28] MEDS: MULTIVIT-MINERALS ORAL LIQUID PEG SCH (14:51)
--- NOTE | 2019-04-28 15:09 | PN ---
Progress Note (short form) - Note Progress Note: Pt seen/examined at bedside, pts son present. Per nurse, pt tolerating tube feeds at 45cc/hr, no residuals or emesis noted. Had bm yesterday. No blood reported. On examination: Pt awake, appears comfortable Abd softly distended, no tenderness elicited +PEG in place Labs reviewed. Hb stable Recommend continue tube feeds, increase gradually as tolerated to goal per safety advisor Continue reglan 5mg tid Continue PPI daily Problem List - Problems (1) Coffee ground emesis Code(s): K92.0 - HEMATEMESIS (2) Ascites Code(s): R18.8 - OTHER ASCITES
--- NOTE | 2019-04-28 15:36 | PN ---
Progress Note (short form) - Note Progress Note: Renal follow up for PÉREZ Seen and examined at the bedside awake and alert no acute complaints Vital Signs Temperature 99.2 F 04/28/19 14:47 Pulse Rate 76 04/28/19 14:47 Respiratory Rate 27 H 04/28/19 14:47 Blood Pressure 128/74 04/28/19 14:47 O2 Sat by Pulse Oximetry (%) 100 04/28/19 08:25 Intake & Output 04/25/19 04/26/19 04/27/19 04/28/19 23:59 23:59 23:59 23:59 Intake Total 380 900 735 900 Output Total 35 33 Balance 345 900 702 900 NAD awake and alert neck supple RRR CTA soft NT/ND + upper and lower extremity edema CBC, BMP 04/27/19 09:42 04/28/19 09:20 Current Medications Albuterol Sulfate (Ventolin 0.083% Nebulizer Soln -) 1 amp NEB Q4H PRN PRN Reason: SHORT OF BREATH/WHEEZING Artificial Tears (Artificial Tears) 1 drop OU QID [facility] Last Admin: 04/28/19 14:52 Dose: 1 drop Bacitracin (Bacitracin -) 1 applic TP BID [facility] Last Admin: 04/28/19 14:51 Dose: 1 applic Diltiazem HCl (Cardizem -) 30 mg PO Q6HPO [facility] Last Admin: 04/28/19 11:46 Dose: 30 mg Finasteride (Proscar -) 5 mg PO DAILY [facility] Last Admin: 04/28/19 11:01 Dose: 5 mg Furosemide (Lasix -) 20 mg GT BIDLASIX [facility] Last Admin: 04/28/19 14:51 Dose: 20 mg Metoclopramide HCl (Reglan Oral Solution -) 5 mg PEG TIDAC [facility] Last Admin: 04/28/19 11:01 Dose: 5 mg Metoprolol Tartrate (Lopressor -) 50 mg PEG Q6HPO [facility] Last Admin: 04/28/19 11:46 Dose: 50 mg Metoprolol Tartrate (Lopressor Injection -) 5 mg IVPB Q4H PRN PRN Reason: HYPERTENSION Metoprolol Tartrate (Lopressor Injection -) 10 mg IVPB Q4H PRN PRN Reason: TACHYCARDIA Multivitamins/Minerals (Certavite-Antioxidant Liquid) 15 ml PEG DAILY [facility] Last Admin: 04/28/19 14:51 Dose: 15 ml Nystatin (Nystop Powder -) 1 applic TP TID [facility] Last Admin: 04/28/19 14:51 Dose: 1 applic Pantoprazole Sodium (Protonix Packets For Oral Suspension -) 40 mg NGT DAILY [facility] Last Admin: 04/28/19 11:01 Dose: 40 mg Potassium Chloride (Potassium Chloride Oral Liquid) 20 meq PO DAILY [facility] Last Admin: 04/28/19 11:01 Dose: 20 meq Sodium Bicarbonate (Sodium Bicarbonate -) 650 mg GT DAILY [facility] Last Admin: 04/28/19 11:01 Dose: 650 mg Sodium Chloride (Normal Saline For Inhalation -) 3 ml IH Q6H PRN PRN Reason: COUGH Last Admin: 04/22/19 22:10 Dose: 3 ml 83 year old gentleman with history of respiratory failure on vent via trach, prostate cancer s/p radiation therapy, CAD s/p CABG, hypertension, DM who presented from [place] with coffee ground emesis who has developed acute kidney injury during the hospital admission. 1. Acute kidney injury secondary to pre-renal injury vs. contrast nephropathy 2. Hypernatremia 3. Acute on chornic anemia with suspected GI bleed 4. Chronic respiratory failure on vent 5. Leukocytoiss 6. BPH/Prostate cancer Renal function stable, no overt electrolyte abnormalities Urine studies show FeNa of 0.6% consistent with pre-renal vs. contrast nephropathy. continue Lasix to 20mg BID via [facility] nephrostomy tubes removed by Continue oral feeds and free water continue proscar continue vent support Thank you Andrew Finney DO
[2019-04-28] MEDS ORDERED: ACETAMINOPHEN 650 MG/20.3 ML ORAL SOLUTION (CUPS) PO PRN (15:58)
[2019-04-28] MEDS: ALBUTEROL SO4 0.083% IH SOL 2.5 MG/3 ML VIAL.NEB. NEB PRN (20:26)
[2019-04-29] MEDS: FUROSEMIDE 20 MG TABLET (FP) GT SCH ×2 (05:39→15:38)
[2019-04-29] MEDS: METOPROLOL TARTRATE 50 MG TABLET (FP) PEG SCH ×4 (05:39→23:11)
[2019-04-29] MEDS: dilTIAZem HCL 30 MG TABLET (FP) PO SCH ×4 (05:39→23:11)
[2019-04-29] MEDS: METOCLOPRAMIDE HCL 5 MG/5 ML UNIT DOSE CUP PEG SCH ×3 (06:05→15:39)
[2019-04-29] MEDS: NYSTATIN POWDER 100,000 UNITS/GM - 15 GM TOPICAL POWDER TP SCH ×3 (06:07→22:50)
--- NOTE | 2019-04-29 10:27 | PN ---
Progress Note (short form) - Note Progress Note: Vented. Awake on AC Mode. No fevers recorded. No documented acute events overnight. Intake & Output 04/26/19 04/27/19 04/28/19 04/29/19 23:59 23:59 23:59 23:59 Intake Total 119 354 2417 900 Output Total 33 600 950 Balance 910 900 4447 -50 Last Vital Signs Temp Pulse Resp BP Pulse Ox 99 F 104 H 36 H 130/72 98 04/29/19 10:00 04/29/19 10:00 04/29/19 10:00 04/29/19 10:00 04/28/19 11:05 Active Medications Acetaminophen (Tylenol Oral Solution -) 650 mg PO Q4H PRN PRN Reason: FEVER Albuterol Sulfate (Ventolin 0.083% Nebulizer Soln -) 1 amp NEB Q4H PRN PRN Reason: SHORT OF BREATH/WHEEZING Last Admin: 04/28/19 20:26 Dose: 1 amp Artificial Tears (Artificial Tears) 1 drop OU QID [facility] Last Admin: 04/28/19 23:26 Dose: 1 drop Bacitracin (Bacitracin -) 1 applic TP BID [facility] Last Admin: 04/28/19 23:26 Dose: 1 applic Diltiazem HCl (Cardizem -) 30 mg PO Q6HPO [facility] Last Admin: 04/29/19 05:39 Dose: 30 mg Finasteride (Proscar -) 5 mg PO DAILY [facility] Last Admin: 04/28/19 11:01 Dose: 5 mg Furosemide (Lasix -) 20 mg GT BIDLASIX [facility] Last Admin: 04/29/19 05:39 Dose: 20 mg Metoclopramide HCl (Reglan Oral Solution -) 5 mg PEG TIDAC [facility] Last Admin: 04/29/19 06:05 Dose: 5 mg Metoprolol Tartrate (Lopressor -) 50 mg PEG Q6HPO [facility] Last Admin: 04/29/19 05:39 Dose: 50 mg Metoprolol Tartrate (Lopressor Injection -) 5 mg IVPB Q4H PRN PRN Reason: HYPERTENSION Metoprolol Tartrate (Lopressor Injection -) 10 mg IVPB Q4H PRN PRN Reason: TACHYCARDIA Multivitamins/Minerals (Certavite-Antioxidant Liquid) 15 ml PEG DAILY [facility] Last Admin: 04/28/19 14:51 Dose: 15 ml Nystatin (Nystop Powder -) 1 applic TP TID [facility] Last Admin: 04/29/19 06:07 Dose: 1 applic Pantoprazole Sodium (Protonix Packets For Oral Suspension -) 40 mg NGT DAILY [facility] Last Admin: 04/28/19 11:01 Dose: 40 mg Potassium Chloride (Potassium Chloride Oral Liquid) 20 meq PO DAILY [facility] Last Admin: 04/28/19 11:01 Dose: 20 meq Sodium Bicarbonate (Sodium Bicarbonate -) 650 mg GT DAILY [facility] Last Admin: 04/28/19 11:01 Dose: 650 mg Sodium Chloride (Normal Saline For Inhalation -) 3 ml IH Q6H PRN PRN Reason: COUGH Last Admin: 04/22/19 22:10 Dose: 3 ml Gen: vented, awake Heart: RRR Lung: Vented, decreased breath sounds at the bases Abd: soft, nontender Ext: + edema A/P Acute on Chronic Respiratory Failure Suspected UTI/Pneumonia/Sepsis Lactic Acidosis Atrial Flutter with RVR Anemia CAD s/p CABG COPD HTN Hyperlipidemia Ascites - Off ABX Per ID - protonix - monitor H/H - Rate control - enteral feeds as tolerated - DVT/GI prophylaxis Dr Castro
[2019-04-29] MEDS ORDERED: PT OWN MED DRAWER 7, Y5N ONE ×2 (11:55→17:55)
--- NOTE | 2019-04-29 11:55 | PN ---
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 On ventilator. Reported to be tolerating TF without vomiting. Case reviewed gunjan PNP. Suggest PMV/MBS as out pt, once medically stable and PMV used for longer periods. I believe pt has good potential for PO trials however MBS should be done first to r/o aspiration.
[2019-04-29] MEDS: PANTOPRAZOLE SOD 40 MG SUSPENSION PACKET NGT SCH (11:57)
[2019-04-29] MEDS: ARTIFICIAL TEARS (POLYVINYL ALCOHOL) OPTH DROPS OU SCH ×4 (11:57→22:49)
[2019-04-29] MEDS: FINASTERIDE 5 MG TABLET (FP) PO SCH (11:58)
[2019-04-29] MEDS: SODIUM BICARBONATE 650 MG TABLET GT SCH (11:58)
[2019-04-29] MEDS: POTASSIUM CHLORIDE ORAL LIQUID 20 MEQ/15 ML PO SCH (11:59)
[2019-04-29 12:23] LABS: BASO % 0.1 % (0-2.0); EOS % 0.7 % (0-4.5); HEMOGLOBIN 8.6 GM/dL (11.7-16.9); LYMPH % 3.6 % (8-40); MCH 31.4 pg (25.7-33.7); MCHC 31.8 g/dl (32.0-35.9); MEAN CELL VOLUME 98.7 fl (80-96); MEAN PLT VOLUME 9.8 fl (7.5-11.1); MONO % 4.6 % (3.8-10.2); PLATELET COUNT 134 K/MM3 (134-434); RBC 2.73 M/mm3 (4.00-5.60); WHITE BLOOD COUNT 13.2 K/mm3 (4.0-10.0)
[2019-04-29 12:59] LABS: ALBUMIN 1.1 g/dl (3.4-5.0); BILIRUBIN,TOTAL 0.5 mg/dL (0.2-1); BLOOD UREA NITROGEN 38.4 mg/dL (7-18); CALCIUM 7.2 mg/dL (8.5-10.1); CREATININE 1.9 mg/dL (0.55-1.3); MAGNESIUM 1.8 mg/dL (1.8-2.4); PHOSPHOROUS 2.4 mg/dL (2.5-4.9); TOT PROT 6.2 g/dl (6.4-8.2)
[2019-04-29 14:50] LABS: ANISOCYTOSIS 2+; MACROCYTOSIS 1+; PLATELET ESTIMATE DECREASED
[2019-04-29] MEDS: NAPH,MB-DB/K PH,MBDB POWDER PACKET GT SCH ×2 (15:39→22:50)
[2019-04-29] MEDS: MULTIVIT-MINERALS ORAL LIQUID PEG SCH (15:40)
[2019-04-29] MEDS: BACITRACIN 15 GM TUBE TOPICAL OINTMENT TP SCH ×2 (15:41→22:49)
--- NOTE | 2019-04-29 17:36 | PN ---
Progress Note (short form) - Note Progress Note: Renal follow up for PÉREZ Seen and examined at the bedside awake and alert no acute complaints no overnight events Vital Signs Temperature 97.5 F L 04/29/19 14:00 Pulse Rate 93 H 04/29/19 14:00 Respiratory Rate 25 H 04/29/19 14:00 Blood Pressure 137/94 04/29/19 14:00 O2 Sat by Pulse Oximetry (%) 98 04/28/19 11:05 Intake & Output 04/26/19 04/27/19 04/28/19 04/29/19 23:59 23:59 23:59 23:59 Intake Total 221 931 3980 900 Output Total 33 600 1250 Balance 351 568 1925 -350 NAD awake and alert neck supple RRR CTA soft NT/ND + upper and lower extremity edema CBC, BMP 04/29/19 11:40 04/29/19 11:40 Current Medications Acetaminophen (Tylenol Oral Solution -) 650 mg PO Q4H PRN PRN Reason: FEVER Albuterol Sulfate (Ventolin 0.083% Nebulizer Soln -) 1 amp NEB Q4H PRN PRN Reason: SHORT OF BREATH/WHEEZING Last Admin: 04/28/19 20:26 Dose: 1 amp Artificial Tears (Artificial Tears) 1 drop OU QID [facility] Last Admin: 04/29/19 15:40 Dose: 1 drop Bacitracin (Bacitracin -) 1 applic TP BID [facility] Last Admin: 04/29/19 15:41 Dose: 1 applic Diltiazem HCl (Cardizem -) 30 mg PO Q6HPO [facility] Last Admin: 04/29/19 12:00 Dose: 30 mg Finasteride (Proscar -) 5 mg PO DAILY [facility] Last Admin: 04/29/19 11:58 Dose: 5 mg Furosemide (Lasix -) 20 mg GT BIDLASIX [facility] Last Admin: 04/29/19 15:38 Dose: 20 mg Metoclopramide HCl (Reglan Oral Solution -) 5 mg PEG TIDAC [facility] Last Admin: 04/29/19 15:39 Dose: 5 mg Metoprolol Tartrate (Lopressor -) 50 mg PEG Q6HPO [facility] Last Admin: 04/29/19 12:00 Dose: 50 mg Metoprolol Tartrate (Lopressor Injection -) 5 mg IVPB Q4H PRN PRN Reason: HYPERTENSION Metoprolol Tartrate (Lopressor Injection -) 10 mg IVPB Q4H PRN PRN Reason: TACHYCARDIA Multivitamins/Minerals (Certavite-Antioxidant Liquid) 15 ml PEG DAILY [facility] Last Admin: 04/29/19 15:40 Dose: 15 ml Nystatin (Nystop Powder -) 1 applic TP TID [facility] Last Admin: 04/29/19 15:39 Dose: 1 applic Pantoprazole Sodium (Protonix Packets For Oral Suspension -) 40 mg NGT DAILY [facility] Last Admin: 04/29/19 11:57 Dose: 40 mg Potassium Phos/Sodium Phos (Phos-Nak Packet -) 1 packet GT BID [facility] Stop: 04/29/19 22:01 Last Admin: 04/29/19 15:39 Dose: 1 packet Sodium Bicarbonate (Sodium Bicarbonate -) 650 mg GT DAILY [facility] Last Admin: 04/29/19 11:58 Dose: 650 mg Sodium Chloride (Normal Saline For Inhalation -) 3 ml IH Q6H PRN PRN Reason: COUGH Last Admin: 04/22/19 22:10 Dose: 3 ml 83 year old gentleman with history of respiratory failure on vent via trach, prostate cancer s/p radiation therapy, CAD s/p CABG, hypertension, DM who presented from [place] with coffee ground emesis who has developed acute kidney injury during the hospital admission. 1. Acute kidney injury secondary to pre-renal injury vs. contrast nephropathy 2. Hypernatremia 3. Acute on chornic anemia with suspected GI bleed 4. Chronic respiratory failure on vent 5. Leukocytoiss 6. BPH/Prostate cancer Renal function stable, no overt electrolyte abnormalities Increase Lasix to 40mg PO BID given persistent edema nephrostomy tubes removed by Continue oral feeds and free water continue proscar continue vent support Thank you Andrew Finney DO
--- NOTE | 2019-04-29 18:10 | PN ---
Progress Note, Physician Chief Complaint: Acute on Chronic Respiratory Failure UTI Ascites History of Present Illness: mechanical vent H/H stable returned from EGD- source of bleeding still unidentifiable + melena/hematochezia Family frustrated of not being able to understand the source of emerging chronic and acute issues, mainly bleeding Has had bleeding from bladder in the past at [facility]-records reviewed Had rectal bleed in 04/2018, went to [facility] in [place], await records Awaiting records from LT and [facility] 04/22/18: Awake and alert Started on reglan SSRI discontinued due to interaction PEG residual 50 cc this AM 04/26/19 Vomited yesterday Tube feeds held GI aware Was on IV reglan, was dc'd? 04/29/19 Tolerating feedings Seen by Urology Nephrostomy tubes dc'd Awaiting consult from Wound care Dr Grijalva - Current Medication List Current Medications: Active Medications Acetaminophen (Tylenol Oral Solution -) 650 mg PO Q4H PRN PRN Reason: FEVER Albuterol Sulfate (Ventolin 0.083% Nebulizer Soln -) 1 amp NEB Q4H PRN PRN Reason: SHORT OF BREATH/WHEEZING Last Admin: 04/28/19 20:26 Dose: 1 amp Artificial Tears (Artificial Tears) 1 drop OU QID [facility] Last Admin: 04/29/19 15:40 Dose: 1 drop Bacitracin (Bacitracin -) 1 applic TP BID [facility] Last Admin: 04/29/19 15:41 Dose: 1 applic Diltiazem HCl (Cardizem -) 30 mg PO Q6HPO [facility] Last Admin: 04/29/19 12:00 Dose: 30 mg Finasteride (Proscar -) 5 mg PO DAILY [facility] Last Admin: 04/29/19 11:58 Dose: 5 mg Furosemide (Lasix Oral Solution -) 40 mg GT BIDLASIX [facility] Metoclopramide HCl (Reglan Oral Solution -) 5 mg PEG TIDAC [facility] Last Admin: 04/29/19 15:39 Dose: 5 mg Metoprolol Tartrate (Lopressor -) 50 mg PEG Q6HPO [facility] Last Admin: 04/29/19 12:00 Dose: 50 mg Metoprolol Tartrate (Lopressor Injection -) 5 mg IVPB Q4H PRN PRN Reason: HYPERTENSION Metoprolol Tartrate (Lopressor Injection -) 10 mg IVPB Q4H PRN PRN Reason: TACHYCARDIA Multivitamins/Minerals (Certavite-Antioxidant Liquid) 15 ml PEG DAILY [facility] Last Admin: 04/29/19 15:40 Dose: 15 ml Nystatin (Nystop Powder -) 1 applic TP TID [facility] Last Admin: 04/29/19 15:39 Dose: 1 applic Pantoprazole Sodium (Protonix Packets For Oral Suspension -) 40 mg NGT DAILY [facility] Last Admin: 04/29/19 11:57 Dose: 40 mg Potassium Phos/Sodium Phos (Phos-Nak Packet -) 1 packet GT BID [facility] Stop: 04/29/19 22:01 Last Admin: 04/29/19 15:39 Dose: 1 packet Sodium Bicarbonate (Sodium Bicarbonate -) 650 mg GT DAILY [facility] Last Admin: 04/29/19 11:58 Dose: 650 mg Sodium Chloride (Normal Saline For Inhalation -) 3 ml IH Q6H PRN PRN Reason: COUGH Last Admin: 04/22/19 22:10 Dose: 3 ml - Objective Vital Signs: Vital Signs Temperature 97.5 F L 04/29/19 14:00 Pulse Rate 93 H 04/29/19 14:00 Respiratory Rate 25 H 04/29/19 17:30 Blood Pressure 137/94 04/29/19 14:00 O2 Sat by Pulse Oximetry (%) 98 04/28/19 11:05 Constitutional: Yes: Well Nourished, No Distress, Moderate Distress Cardiovascular: Yes: Regular Rate and Rhythm Respiratory: Yes: Mechanically Ventilated Gastrointestinal: Yes: Normal Bowel Sounds, Soft, Abdomen, Obese Genitourinary: Yes: Incontinence Musculoskeletal: Yes: Muscle Weakness Extremities: Yes: WNL Edema: Yes (generalized) Peripheral Pulses WNL: Yes Integumentary: Yes: Pressure Ulcer, Rash (groin [place]ota) Wound/Incision: Yes: Dressing Dry and Intact Neurological: Yes: Alert, Oriented Psychiatric: Yes: Alert, Oriented Labs: CBC, BMP 04/29/19 11:40 04/29/19 11:40 INR, PTT INR 1.43 (0.83-1.09) H 04/18/19 05:20 Fibrinogen 295.0 mg/dL (238-498) 04/16/19 05:30 Problem List - Problems (1) PÉREZ (acute kidney injury) Assessment/Plan: -Nephrology consult -monitor trend -Cr stable -Renal U/S reviewed -Furosemide low dose 20 mg GT daily Problems reviewed: Yes Code(s): N17.9 - ACUTE KIDNEY FAILURE, UNSPECIFIED (2) Vomiting Assessment/Plan: -resolved -Continue Reglan 10 mg AC -GI on baord -abd xray reviewed -Tube feedings titrated up to goal rate of 45 cc/hr-tolerating well Problems reviewed: Yes Code(s): R11.10 - VOMITING, UNSPECIFIED (3) Nephrostomy status Assessment/Plan: -BL -Seen by Urology -nephrostomy tubes discontinued Problems reviewed: Yes Code(s): Z93.6 - OTHER ARTIFICIAL OPENINGS OF URINARY TRACT STATUS (4) Macular degeneration Assessment/Plan: -Family's complaint of pt having macular degeneration - will get ophthalmology consult-still pending consult Problems reviewed: Yes Code(s): H35.30 - UNSPECIFIED MACULAR DEGENERATION (5) Decubitus ulcer of sacral region, stage 4 Assessment/Plan: -Await Wound care consult -Continue wet to dry dressings -Offloading -T&P Q2H Problems reviewed: Yes Code(s): L89.154 - PRESSURE ULCER OF SACRAL REGION, STAGE 4 Assessment/Plan (1) Acute and chronic respiratory failure Assessment/Plan: -Pulm on board -Mechanically Ventilated -keep SpO2 >90% -CXR shows cardiomegaly, left basilar compressive atelectasis, left pleural effusion, right pleural effusion -Sputum Culture positive for MRSA -Encourage use of passy berta valve daily -MBS when stable Code(s): J96.20 - ACUTE AND CHR RESP FAILURE, UNSP W HYPOXIA OR HYPERCAPNIA (2) Anemia Assessment/Plan: -Stable -monitor Hg weekly outpatient and transfuse for Hg <7.0 to avoid fluid overload -GI and Hematology on board Code(s): D64.9 - ANEMIA, UNSPECIFIED (3) Atrial flutter Assessment/Plan: -Metoprolol and Cardizem -Cardiology on board -Rate controlled now Code(s): I48.92 - UNSPECIFIED ATRIAL FLUTTER (4) COPD (chronic obstructive pulmonary disease) Assessment/Plan: -Pulm on board -Mechanically Ventilated -keep SpO2 >90% Code(s): J44.9 - CHRONIC OBSTRUCTIVE PULMONARY DISEASE, UNSPECIFIED (5) Diabetes mellitus Assessment/Plan: -BGM ACHS -ISS Code(s): E11.9 - TYPE 2 DIABETES MELLITUS WITHOUT COMPLICATIONS (6) GI bleed Assessment/Plan: -GI on board -Pantoprazole GT -EGD-unable to identify the source of bleeding -CT Abd/pelvis was negative for SBO Code(s): K92.2 - GASTROINTESTINAL HEMORRHAGE, UNSPECIFIED (7) HTN (hypertension) Assessment/Plan: -Metoprolol + Cardizem Code(s): I10 - ESSENTIAL (PRIMARY) HYPERTENSION (8) SBO (small bowel obstruction) Assessment/Plan: -CTAP shows no evidence of bowel obstruction -GI on board Code(s): K56.609 - UNSP INTESTNL OBST, UNSP TO PARTIAL VERSUS COMPLETE OBST (9) Ascites Assessment/Plan: -s/p paracentesis tis admission -Ascites Fluid specimen noted albumin 1.8 with elevated globulins, 2+ proteinuria, macrocytic anemia raise suspicion for hematologic malingnancy -Hematology on board Code(s): R18.8 - OTHER ASCITES (10) Sepsis Assessment/Plan: -ID on board -Leukocytosis -afebrile -Sputum Culture positive for MRSA -BC neg -UC positive ESBL, Klebsiella -Completed course of Zosyn -Off IV abx Code(s): A41.9 - SEPSIS, UNSPECIFIED ORGANISM Assessment/Plan see problem list dvt ppx
--- NOTE | 2019-04-29 21:02 | PN ---
Progress Note (short form) - Note Progress Note: Consult Specialty:: Hematology Reason for Consultation:: R/O Hematologic Malignancy - History of Present Illness 83 year old gentleman with a pmhx of prostate CA s/p radiation, CAD s/p CABG 2018, dm, htn, esrd, copd, and s/p Trach/vent/peg sent from senior care for coffee ground emesis. Patient unable to provide medical history. Hematology was consulted for possible hematologic malignancies Visit 04/29/2019: + Trach, + PEG. Denies pain with his head when asked. No bleeding - History Source History Provided By: Medical Record Limitations to Obtaining History: Clinical Condition - Past Medical History Cardio/Vascular: Yes: Aneurysm, CAD, HTN, Hyperlipdemia Pulmonary: Yes: COPD, Pneumonia, Other (trach/vent dependent) Renal/: Yes: Renal Failure Endocrine: Yes: Diabetes Mellitus - Past Surgical History Past Surgical History: Yes: AAA Repair, CABG - Alcohol/Substance Use Hx Alcohol Use: No History of Substance Use: reports: None - Smoking History Smoking history: Unknown if ever smoked Have you smoked in the past 12 months: No - Social History ADL: Support Services History of Recent Travel: No Home Medications - Allergies Allergies/Adverse Reactions: Allergies Allergy/AdvReac Type Severity Reaction Status Date / Time chlorhexidine Allergy Verified 03/30/19 21:38 Physical Exam Last Vital Signs Temp Pulse Resp BP Pulse Ox 98.1 F 95 H 22 H 119/59 L 98 04/29/19 18:00 04/29/19 18:00 04/29/19 18:00 04/29/19 18:00 04/29/19 09:00 Constitutional: Yes: No Distress Eyes: Yes: WNL, Conjunctiva Clear HENT: Yes: WNL Neck: Yes: WNL Cardiovascular: Yes: WNL Respiratory: Yes: WNL Gastrointestinal: Yes: Normal Bowel Sounds Integumentary: Yes: WNL, Bruising Neurological: Yes: Alert Labs: 04/29/19 11:40 04/29/19 11:40 Current Medications Acetaminophen (Tylenol Oral Solution -) 650 mg PO Q4H PRN PRN Reason: FEVER Albuterol Sulfate (Ventolin 0.083% Nebulizer Soln -) 1 amp NEB Q4H PRN PRN Reason: SHORT OF BREATH/WHEEZING Last Admin: 04/28/19 20:26 Dose: 1 amp Amino Acids (Prosource No Carb Liquid Pkt) 30 ml GT BID@0800,1730 [facility] Artificial Tears (Artificial Tears) 1 drop OU QID [facility] Last Admin: 04/29/19 18:07 Dose: 1 drop Ascorbic Acid (Vitamin C -) 500 mg GT BID [facility] Bacitracin (Bacitracin -) 1 applic TP BID [facility] Last Admin: 04/29/19 15:41 Dose: 1 applic Diltiazem HCl (Cardizem -) 30 mg PO Q6HPO [facility] Last Admin: 04/29/19 18:07 Dose: 30 mg Finasteride (Proscar -) 5 mg PO DAILY [facility] Last Admin: 04/29/19 11:58 Dose: 5 mg Furosemide (Lasix Oral Solution -) 40 mg GT BIDLASIX [facility] Metoclopramide HCl (Reglan Oral Solution -) 5 mg PEG TIDAC [facility] Last Admin: 04/29/19 15:39 Dose: 5 mg Metoprolol Tartrate (Lopressor -) 50 mg PEG Q6HPO [facility] Last Admin: 04/29/19 18:07 Dose: 50 mg Metoprolol Tartrate (Lopressor Injection -) 5 mg IVPB Q4H PRN PRN Reason: HYPERTENSION Metoprolol Tartrate (Lopressor Injection -) 10 mg IVPB Q4H PRN PRN Reason: TACHYCARDIA Multivitamins/Minerals (Certavite-Antioxidant Liquid) 15 ml PEG DAILY [facility] Last Admin: 04/29/19 15:40 Dose: 15 ml Nystatin (Nystop Powder -) 1 applic TP TID [facility] Last Admin: 04/29/19 15:39 Dose: 1 applic Pantoprazole Sodium (Protonix Packets For Oral Suspension -) 40 mg NGT DAILY [facility] Last Admin: 04/29/19 11:57 Dose: 40 mg Potassium Phos/Sodium Phos (Phos-Nak Packet -) 1 packet GT BID [facility] Stop: 04/29/19 22:01 Last Admin: 04/29/19 15:39 Dose: 1 packet Sodium Bicarbonate (Sodium Bicarbonate -) 650 mg GT DAILY [facility] Last Admin: 04/29/19 11:58 Dose: 650 mg Sodium Chloride (Normal Saline For Inhalation -) 3 ml IH Q6H PRN PRN Reason: COUGH Last Admin: 04/22/19 22:10 Dose: 3 ml Assessment/Plan 83 y/o gentleman with a pmhx of prostate CA s/p radiation, CAD s/p CABG 05/2018, dm, htn, esrd, copd, and s/p Trach/vent/peg sent from senior care for coffee ground emesis. Patient unable to provide history. Recommend: 1) Monitor CBC with diff daily, CMP 2) PT/INR, PTT, reticulocytes 3) GI Bleeding per GI team 4) Thank you for this consultation
[2019-04-29] MEDS: ASCORBIC ACID 500 MG TABLET (FP) GT SCH (22:50)
[2019-04-30] MEDS: ALBUTEROL SO4 0.083% IH SOL 2.5 MG/3 ML VIAL.NEB. NEB PRN (06:07)
[2019-04-30] MEDS: dilTIAZem HCL 30 MG TABLET (FP) PO SCH ×3 (07:18→17:54)
[2019-04-30] MEDS: METOCLOPRAMIDE HCL 5 MG/5 ML UNIT DOSE CUP PEG SCH ×3 (07:18→16:57)
[2019-04-30] MEDS: METOPROLOL TARTRATE 50 MG TABLET (FP) PEG SCH ×3 (07:18→17:52)
[2019-04-30] MEDS: NYSTATIN POWDER 100,000 UNITS/GM - 15 GM TOPICAL POWDER TP SCH ×3 (07:20→22:56)
[2019-04-30] MEDS: FUROSEMIDE 40 MG/5 ML UNIT-DOSE CUP GT SCH ×2 (07:20→14:27)
[2019-04-30] MEDS ORDERED: AMINO ACIDS/PROTEIN HYDROLYS 30 ML LIQUID.PKT PO SCH (08:00)
--- NOTE | 2019-04-30 08:11 | PN ---
Progress Note, Physician Chief Complaint: Acute on Chronic Respiratory Failure UTI Ascites History of Present Illness: Previous notes and events reviewed awake and alert mechanically ventilated NAD Hg 8.6 Leukocytosis~reconsult ID no reports of melena or rectal bleeding reported - Current Medication List Current Medications: Active Medications Acetaminophen (Tylenol Oral Solution -) 650 mg PO Q4H PRN PRN Reason: FEVER Albuterol Sulfate (Ventolin 0.083% Nebulizer Soln -) 1 amp NEB Q4H PRN PRN Reason: SHORT OF BREATH/WHEEZING Last Admin: 04/30/19 06:07 Dose: 1 amp Amino Acids (Prosource No Carb Liquid Pkt) 30 ml GT BID@0800,1730 [facility] Artificial Tears (Artificial Tears) 1 drop OU QID [facility] Last Admin: 04/29/19 22:49 Dose: 1 drop Ascorbic Acid (Vitamin C -) 500 mg GT BID [facility] Last Admin: 04/29/19 22:50 Dose: 500 mg Bacitracin (Bacitracin -) 1 applic TP BID [facility] Last Admin: 04/29/19 22:49 Dose: 1 applic Diltiazem HCl (Cardizem -) 30 mg PO Q6HPO [facility] Last Admin: 04/30/19 07:18 Dose: 30 mg Finasteride (Proscar -) 5 mg PO DAILY [facility] Last Admin: 04/29/19 11:58 Dose: 5 mg Furosemide (Lasix Oral Solution -) 40 mg GT BIDLASIX [facility] Last Admin: 04/30/19 07:20 Dose: 40 mg Metoclopramide HCl (Reglan Oral Solution -) 5 mg PEG TIDAC [facility] Last Admin: 04/30/19 07:18 Dose: 5 mg Metoprolol Tartrate (Lopressor -) 50 mg PEG Q6HPO [facility] Last Admin: 04/30/19 07:18 Dose: 50 mg Metoprolol Tartrate (Lopressor Injection -) 5 mg IVPB Q4H PRN PRN Reason: HYPERTENSION Metoprolol Tartrate (Lopressor Injection -) 10 mg IVPB Q4H PRN PRN Reason: TACHYCARDIA Multivitamins/Minerals (Certavite-Antioxidant Liquid) 15 ml PEG DAILY [facility] Last Admin: 04/29/19 15:40 Dose: 15 ml Nystatin (Nystop Powder -) 1 applic TP TID [facility] Last Admin: 04/30/19 07:20 Dose: 1 applic Pantoprazole Sodium (Protonix Packets For Oral Suspension -) 40 mg NGT DAILY [facility] Last Admin: 04/29/19 11:57 Dose: 40 mg Sodium Bicarbonate (Sodium Bicarbonate -) 650 mg GT DAILY [facility] Last Admin: 04/29/19 11:58 Dose: 650 mg Sodium Chloride (Normal Saline For Inhalation -) 3 ml IH Q6H PRN PRN Reason: COUGH Last Admin: 04/22/19 22:10 Dose: 3 ml - Objective Vital Signs: Vital Signs Temperature 98.5 F 04/30/19 06:00 Pulse Rate 90 04/30/19 06:00 Respiratory Rate 25 H 04/30/19 06:00 Blood Pressure 127/66 04/30/19 06:00 O2 Sat by Pulse Oximetry (%) 99 04/29/19 21:00 Constitutional: Yes: No Distress, Calm Eyes: Yes: Conjunctiva Clear HENT: Yes: Atraumatic Neck: Yes: Other (trach) Cardiovascular: Yes: Pulse Irregular Respiratory: Yes: Regular, Mechanically Ventilated, Rhonchi Gastrointestinal: Yes: Normal Bowel Sounds, Soft, Other (gtube) Genitourinary: Yes: Huber Present Musculoskeletal: Yes: Muscle Weakness Extremities: Yes: WNL Edema: Yes Edema: LLE: 3+, RLE: 3+ Integumentary: Yes: Bruising, Pressure Ulcer Wound/Incision: Yes: Dressing Dry and Intact Neurological: Yes: Alert, Pre-Existing Deficit Psychiatric: Yes: Alert Labs: CBC, BMP 04/29/19 11:40 04/29/19 11:40 INR, PTT INR 1.43 (0.83-1.09) H 04/18/19 05:20 Fibrinogen 295.0 mg/dL (238-498) 04/16/19 05:30 Microbiology 04/13/19 13:50 Stool Clostridioides difficile Antigen - Final 04/13/19 13:50 Stool Clostridioides difficile Toxin Assay - Final 04/06/19 19:30 Blood - Peripheral Venous Blood Culture - Final NO GROWTH AFTER 5 DAYS INCUBATION 04/06/19 19:30 Blood - Peripheral Venous Blood Culture - Final NO GROWTH AFTER 5 DAYS INCUBATION 04/08/19 07:50 Sputum - Endotrachea Suction/Ventilator Gram Stain - Final 04/08/19 07:50 Sputum - Endotrachea Suction/Ventilator Sputum Culture - Final Pseudomonas Aeruginosa Mr S Aureus 04/02/19 14:54 Peritoneal Fluid Gram Stain - Final 04/02/19 14:54 Peritoneal Fluid Body Fluid Culture - Final NO GROWTH OF AEROBIC ORGANISMS AFTER 48 HOURS INCUBATION 04/02/19 14:54 Peritoneal Fluid Anaerobic Culture - Final NO ANAEROBES WERE ISOLATED 04/02/19 14:54 Peritoneal Fluid AFB Smear Concentration - Preliminary 04/02/19 14:54 Peritoneal Fluid Mycobacterial Culture - Preliminary 03/31/19 01:27 Blood - Peripheral Venous Blood Culture - Final NO GROWTH AFTER 5 DAYS INCUBATION 03/31/19 01:27 Blood - Peripheral Venous Blood Culture - Final NO GROWTH AFTER 5 DAYS INCUBATION 04/02/19 14:54 Peritoneal Fluid ROB Preparation - Preliminary 04/02/19 14:54 Peritoneal Fluid Fungal Culture - Preliminary 03/31/19 02:17 Urine - Urine Nephrostomy Tube Left Urine Culture - Final Klebsiella Pneumoniae - Esbl Problem List - Problems (1) Acute and chronic respiratory failure Assessment/Plan: -Pulm on board -Mechanically Ventilated -keep SpO2 >90% -CXR shows cardiomegaly, left basilar compressive atelectasis, left pleural effusion, right pleural effusion -Sputum Culture positive for MRSA -repeat CXR shows some atelectasis at the right base with right base blunting and dense left base compatible with fluid, atelectasis, or infiltrate Code(s): J96.20 - ACUTE AND CHR RESP FAILURE, UNSP W HYPOXIA OR HYPERCAPNIA (2) Anemia Assessment/Plan: -Hg 8.6 -monitor Hg daily and transfuse for Hg <7.0 to avoid fluid overload -GI and Hematology on board -Anemia profile shows low Iron, low TIBC, high Ferritin Code(s): D64.9 - ANEMIA, UNSPECIFIED (3) Atrial flutter Assessment/Plan: -Metoprolol and Cardizem -Cardiology on board Code(s): I48.92 - UNSPECIFIED ATRIAL FLUTTER (4) COPD (chronic obstructive pulmonary disease) Assessment/Plan: -Pulm on board -Mechanically Ventilated -keep SpO2 >90% -CXR shows cardiomegaly, left basilar compressive atelectasis, left pleural effusion, right pleural effusion -repeat CXR shows some atelectasis at the right base with right base blunting and dense left base compatible with fluid, atelectasis, or infiltrate Code(s): J44.9 - CHRONIC OBSTRUCTIVE PULMONARY DISEASE, UNSPECIFIED (5) Diabetes mellitus Assessment/Plan: -BGM ACHS -ISS Code(s): E11.9 - TYPE 2 DIABETES MELLITUS WITHOUT COMPLICATIONS (6) GI bleed Assessment/Plan: -Hg 7.8 -GI on board -EGD 04/19 shows normal esophageal mucosa, clot in the gastric fundus, no active bleeding, no abnormalities in duodenal mucosa -avoid NSAIDs -Pantoprazole -as per GI note patient family states patient had EGD within year, no reports to review Code(s): K92.2 - GASTROINTESTINAL HEMORRHAGE, UNSPECIFIED (7) HTN (hypertension) Assessment/Plan: -Lisinopril Code(s): I10 - ESSENTIAL (PRIMARY) HYPERTENSION (8) SBO (small bowel obstruction) Assessment/Plan: -CTAP shows no evidence of bowel obstruction -GI on board Code(s): K56.609 - UNSP INTESTNL OBST, UNSP TO PARTIAL VERSUS COMPLETE OBST (9) Ascites Assessment/Plan: -s/p paracentesis -Ascites Fluid specimen noted albumin 1.8 with elevated globulins, 2+ proteinuria, macrocytic anemia raise suspicion for hematologic malingnancy -Hematology on board Code(s): R18.8 - OTHER ASCITES (10) Sepsis Assessment/Plan: -ID on board -Leukocytosis -afebrile -Sputum Culture positive for MRSA -BC neg -UC positive ESBL, Klebsiella -Gentamicin and Zosyn -CXR shows cardiomegaly, left basilar compressive atelectasis, left pleural effusion, right pleural effusion -LA 2.1~1.3 Code(s): A41.9 - SEPSIS, UNSPECIFIED ORGANISM (11) Nephrostomy status Assessment/Plan: -Evaluated by Urology -Nephrostomy tube removed Code(s): Z93.6 - OTHER ARTIFICIAL OPENINGS OF URINARY TRACT STATUS (12) Decubitus ulcer of sacral region, stage 4 Assessment/Plan: -Plastic Surgery consult -turn q2h -offloading -daily dressing change Code(s): L89.154 - PRESSURE ULCER OF SACRAL REGION, STAGE 4 Assessment/Plan see problem list dvt ppx
[2019-04-30] MEDS ORDERED: PT OWN MED DRAWER 7, Y5N ONE ×2 (09:21→17:53)
[2019-04-30] MEDS: ASCORBIC ACID 500 MG TABLET (FP) GT SCH ×2 (09:24→22:56)
[2019-04-30] MEDS: SODIUM BICARBONATE 650 MG TABLET GT SCH (09:24)
[2019-04-30] MEDS: FINASTERIDE 5 MG TABLET (FP) PO SCH (09:24)
[2019-04-30] MEDS: PANTOPRAZOLE SOD 40 MG SUSPENSION PACKET NGT SCH (09:24)
[2019-04-30] MEDS: AMINO ACIDS/PROTEIN HYDROLYS 30 ML LIQUID.PKT GT SCH ×2 (09:24→17:54)
[2019-04-30] MEDS: ARTIFICIAL TEARS (POLYVINYL ALCOHOL) OPTH DROPS OU SCH ×4 (09:25→22:55)
--- NOTE | 2019-04-30 10:00 | PN ---
Progress Note, Physician Chief Complaint: Necrotic Large Grade IV decubitus Ulcer - Current Medication List Current Medications: Active Medications Acetaminophen (Tylenol Oral Solution -) 650 mg PO Q4H PRN PRN Reason: FEVER Albuterol Sulfate (Ventolin 0.083% Nebulizer Soln -) 1 amp NEB Q4H PRN PRN Reason: SHORT OF BREATH/WHEEZING Last Admin: 04/30/19 06:07 Dose: 1 amp Amino Acids (Prosource No Carb Liquid Pkt) 30 ml GT BID@0800,1730 [facility] BEDS AT THE [facility] Last Admin: 04/30/19 09:24 Dose: 30 ml Artificial Tears (Artificial Tears) 1 drop OU QID [facility] 234 BEDS AT [facility] Last Admin: 04/30/19 09:25 Dose: 1 drop Ascorbic Acid (Vitamin C -) 500 mg GT BID [facility]CLUDE 234 BEDS AT THE [facility] Last Admin: 04/30/19 09:24 Dose: 500 mg Bacitracin (Bacitracin -) 1 applic TP BID [facility] 234 BEDS AT [facility] Last Admin: 04/29/19 22:49 Dose: 1 applic Diltiazem HCl (Cardizem -) 30 mg PO Q6HPO [facility]CLUDE 234 BEDS AT [facility] Last Admin: 04/30/19 07:18 Dose: 30 mg Finasteride (Proscar -) 5 mg PO DAILY [facility] 234 BEDS AT [facility] Last Admin: 04/30/19 09:24 Dose: 5 mg Furosemide (Lasix Oral Solution -) 40 mg GT BIDLASIX [facility]CLUDE 234 BEDS AT [facility] Last Admin: 04/30/19 07:20 Dose: 40 mg Metoclopramide HCl (Reglan Oral Solution -) 5 mg PEG TIDAC [facility]CLUDE 234 BEDS AT THE [facility] Last Admin: 04/30/19 07:18 Dose: 5 mg Metoprolol Tartrate (Lopressor -) 50 mg PEG Q6HPO [facility]CLUDE 234 BEDS AT [facility] Last Admin: 04/30/19 07:18 Dose: 50 mg Metoprolol Tartrate (Lopressor Injection -) 5 mg IVPB Q4H PRN PRN Reason: HYPERTENSION Metoprolol Tartrate (Lopressor Injection -) 10 mg IVPB Q4H PRN PRN Reason: TACHYCARDIA Multivitamins/Minerals (Certavite-Antioxidant Liquid) 15 ml PEG DAILY [facility] 234 BEDS AT [facility] Last Admin: 04/29/19 15:40 Dose: 15 ml Nystatin (Nystop Powder -) 1 applic TP TID [facility]CLUDE 234 BEDS AT [facility] Last Admin: 04/30/19 07:20 Dose: 1 applic Pantoprazole Sodium (Protonix Packets For Oral Suspension -) 40 mg NGT DAILY [facility] 234 BEDS AT [facility] Last Admin: 04/30/19 09:24 Dose: 40 mg Sodium Bicarbonate (Sodium Bicarbonate -) 650 mg GT DAILY [facility]CLUDE 234 BEDS AT [facility] Last Admin: 04/30/19 09:24 Dose: 650 mg Sodium Chloride (Normal Saline For Inhalation -) 3 ml IH Q6H PRN PRN Reason: COUGH Last Admin: 04/22/19 22:10 Dose: 3 ml - Objective Vital Signs: Vital Signs Temperature 98.9 F 04/30/19 09:20 Pulse Rate 94 H 04/30/19 09:20 Respiratory Rate 36 H 04/30/19 09:20 Blood Pressure 134/8 L 04/30/19 09:20 O2 Sat by Pulse Oximetry (%) 99 04/30/19 09:03 Labs: CBC, BMP 04/29/19 11:40 04/29/19 11:40 INR, PTT INR 1.43 (0.83-1.09) H 04/18/19 05:20 Fibrinogen 295.0 mg/dL (238-498) 04/16/19 05:30 Assessment/Plan Re-evaluation Patient general condition has deteriorated Feels feverish, responding to touch, non verbal labored breathing Skin showing several areas of skin tears Requested to evaluate Sacral decubitus 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 Plan : Supportive care Wound care Keep wound clean Low Pressure mattress Medical management If patient general status stabilizes will re-evaluate Calls Made to [facility] 9.45AM [employer] Machine : Message could not be left .( FULL) Called second [facility] 9.50AM David Kilpatrick message left in machine , call office. phone number left
--- NOTE | 2019-04-30 10:13 | PN ---
Progress Note (short form) - Note Progress Note: Spoke with David Kilpatrick 10.14 Am Complete History Obtained Multiple Medical Condition and has been deteriorating .over 11 months S
--- NOTE | 2019-04-30 10:22 | PN ---
Progress Note, [employer]VISOR - Note Progress Note: Selected Entries 04/28/19 04/28/19 04/28/19 01:00 05:00 11:00 Supper Temperature 98.7 F 98.7 F 98.4 F 04/28/19 04/28/19 04/28/19 14:47 18:37 19:00 Supper NPO Temperature 99.2 F 98.2 F 04/28/19 04/28/19 04/29/19 22:00 23:04 02:00 Supper NPO Temperature 97.5 F L 98.5 F 04/29/19 04/29/19 06:00 10:00 Supper Temperature 98.4 F 99 F Selected Entries 04/30/19 04/30/19 04/30/19 02:00 06:00 09:20 Temperature 98.9 F 98.5 F 98.9 F Laboratory Tests 04/29/19 11:40 WBC 13.2 H Sleeping. On ventilator. Tolerating TF without vomiting. Reviewed case with PNP. PMV to be used once medically stable Once PMV used again consistently, I believe pt has good potential for PO trials , however, MBS should be done first to r/o aspiration.
[2019-04-30 11:10] LABS: BLOOD UREA NITROGEN 42.2 mg/dL (7-18); CALCIUM 7.4 mg/dL (8.5-10.1); CREATININE 1.9 mg/dL (0.55-1.3); MAGNESIUM 1.8 mg/dL (1.8-2.4); PHOSPHOROUS 2.6 mg/dL (2.5-4.9); POTASSIUM 5.4 mmol/L (3.5-5.1)
[2019-04-30] MEDS: BACITRACIN 15 GM TUBE TOPICAL OINTMENT TP SCH ×2 (12:00→22:56)
--- NOTE | 2019-04-30 13:54 | PN ---
Progress Note (short form) - Note Progress Note: off antibiotics since 04/20 no fevers alert trch to vent bilateral PCN removed by urology on 04/28 still with episodic vomiting Vital Signs Period Temp Pulse Resp BP Sys/Kang Pulse Ox Last 24 Hr 97.5 F-98.9 F 70-95 22-36 105-137/8-94 99-99 cor-rrr llungs decreased bs at bases abd soft, +GT ext +edema +skin tears +sacral ulcer CBC, BMP 04/29/19 11:40 04/30/19 10:02 a/p leukocytosis- observe for now - suspect multifactorial no fevers hemodynamics appear stable would send blood cultures if wbc continues to rise elevated creatinine- stable, s/p removal PCN tubes, has bryant catheter contact isolation for CRE overall prognosis is poor
[2019-04-30] MEDS: MULTIVIT-MINERALS ORAL LIQUID PEG SCH (14:17)
--- NOTE | 2019-04-30 15:55 | PN ---
Progress Note (short form) - Note Progress Note: Renal follow up for PÉREZ Seen and examined at the bedside awake and alert on vent via trach no overnight events making urine Vital Signs Temperature 98.5 F 04/30/19 15:46 Pulse Rate 94 H 04/30/19 09:20 Respiratory Rate 31 H 04/30/19 13:00 Blood Pressure 134/8 L 04/30/19 09:20 O2 Sat by Pulse Oximetry (%) 99 04/30/19 09:03 Intake & Output 04/27/19 04/28/19 04/29/19 04/30/19 23:59 23:59 23:59 23:59 Intake Total 735 1705 1760 Output Total 33 600 1600 300 Balance 702 1105 160 -300 NAD awake and alert neck supple RRR CTA soft NT/ND + upper and lower extremity edema CBC, BMP 04/29/19 11:40 04/30/19 10:02 Current Medications Acetaminophen (Tylenol Oral Solution -) 650 mg PO Q4H PRN PRN Reason: FEVER Albuterol Sulfate (Ventolin 0.083% Nebulizer Soln -) 1 amp NEB Q4H PRN PRN Reason: SHORT OF BREATH/WHEEZING Last Admin: 04/30/19 06:07 Dose: 1 amp Amino Acids (Prosource No Carb Liquid Pkt) 30 ml GT BID@0800,1730 [facility] Last Admin: 04/30/19 09:24 Dose: 30 ml Artificial Tears (Artificial Tears) 1 drop OU QID [facility] Last Admin: 04/30/19 14:28 Dose: 1 drop Ascorbic Acid (Vitamin C -) 500 mg GT BID [facility] Last Admin: 04/30/19 09:24 Dose: 500 mg Bacitracin (Bacitracin -) 1 applic TP BID [facility] Last Admin: 04/30/19 12:00 Dose: 1 applic Diltiazem HCl (Cardizem -) 30 mg PO Q6HPO [facility] Last Admin: 04/30/19 14:19 Dose: 30 mg Finasteride (Proscar -) 5 mg PO DAILY [facility] Last Admin: 04/30/19 09:24 Dose: 5 mg Furosemide (Lasix Oral Solution -) 40 mg GT BIDLASIX [facility] Last Admin: 04/30/19 14:27 Dose: 40 mg Metoclopramide HCl (Reglan Oral Solution -) 5 mg PEG TIDAC [facility] Last Admin: 04/30/19 12:18 Dose: 5 mg Metoprolol Tartrate (Lopressor -) 50 mg PEG Q6HPO [facility] Last Admin: 04/30/19 14:19 Dose: 50 mg Metoprolol Tartrate (Lopressor Injection -) 5 mg IVPB Q4H PRN PRN Reason: HYPERTENSION Metoprolol Tartrate (Lopressor Injection -) 10 mg IVPB Q4H PRN PRN Reason: TACHYCARDIA Multivitamins/Minerals (Certavite-Antioxidant Liquid) 15 ml PEG DAILY [facility] Last Admin: 04/30/19 14:17 Dose: 15 ml Nystatin (Nystop Powder -) 1 applic TP TID [facility] Last Admin: 04/30/19 14:29 Dose: 1 applic Pantoprazole Sodium (Protonix Packets For Oral Suspension -) 40 mg NGT DAILY [facility] Last Admin: 04/30/19 09:24 Dose: 40 mg Sodium Bicarbonate (Sodium Bicarbonate -) 650 mg GT DAILY [facility] Last Admin: 04/30/19 09:24 Dose: 650 mg Sodium Chloride (Normal Saline For Inhalation -) 3 ml IH Q6H PRN PRN Reason: COUGH Last Admin: 04/22/19 22:10 Dose: 3 ml 83 year old gentleman with history of respiratory failure on vent via trach, prostate cancer s/p radiation therapy, CAD s/p CABG, hypertension, DM who [place] with coffee ground emesis who has developed acute kidney injury during the hospital admission. 1. Acute kidney injury secondary to pre-renal injury vs. contrast nephropathy 2. Hypernatremia 3. Acute on chornic anemia with suspected GI bleed 4. Chronic respiratory failure on vent 5. Leukocytoiss 6. BPH/Prostate cancer 7. Mild hyperkalemia likely secondary to potassium/phos supplementation Renal function stable, not yet improved. no overt electrolyte abnormalities Continue Lasix 40mg PO BID given persistent edema nephrostomy tubes removed by Continue oral feeds and free water continue proscar continue vent support Trend K, no emergent indication for kayexalate/lokelma at this time Thank you Andrew Finney DO
[2019-04-30] MEDS ORDERED: KETOROLAC TROMETHAMINE 15 MG/ML VIAL IVPUSH ONE (17:11)
[2019-05-01] MEDS: dilTIAZem HCL 30 MG TABLET (FP) PO SCH ×6 (02:33→23:00)
[2019-05-01] MEDS: METOPROLOL TARTRATE 50 MG TABLET (FP) PEG SCH ×5 (02:33→23:00)
[2019-05-01] MEDS: NYSTATIN POWDER 100,000 UNITS/GM - 15 GM TOPICAL POWDER TP SCH ×3 (07:00→22:57)
[2019-05-01] MEDS: METOCLOPRAMIDE HCL 5 MG/5 ML UNIT DOSE CUP PEG SCH ×3 (07:00→17:36)
[2019-05-01] MEDS: FUROSEMIDE 40 MG/5 ML UNIT-DOSE CUP GT SCH ×3 (07:05→15:12)
[2019-05-01 08:20] LABS: HEMATOCRIT 25.2 % (35.4-49); HEMOGLOBIN 8.1 GM/dL (11.7-16.9); MCH 31.5 pg (25.7-33.7); MCHC 32.1 g/dl (32.0-35.9); MEAN PLT VOLUME 9.3 fl (7.5-11.1); PLATELET COUNT 108 K/MM3 (134-434); RBC 2.58 M/mm3 (4.00-5.60); RDW 23.9 % (11.9-15.9); WHITE BLOOD COUNT 11.2 K/mm3 (4.0-10.0)
[2019-05-01 08:45] LABS: ALBUMIN 1.1 g/dl (3.4-5.0); BILIRUBIN,TOTAL 0.6 mg/dL (0.2-1); BLOOD UREA NITROGEN 43.6 mg/dL (7-18); CALCIUM 7.2 mg/dL (8.5-10.1); CREATININE 1.8 mg/dL (0.55-1.3); POTASSIUM 5.1 mmol/L (3.5-5.1); TOT PROT 6.4 g/dl (6.4-8.2)
--- NOTE | 2019-05-01 08:48 | EKG ---
Test Reason : Blood Pressure : / mmHG Vent. Rate : 109 BPM Atrial Rate : 286 BPM P-R Int : 000 ms QRS Dur : 108 ms QT Int : 332 ms P-R-T Axes : 000 -39 156 degrees QTc Int : 447 ms ATRIAL FLUTTER WITH VARIABLE A-V BLOCK LEFT AXIS DEVIATION ABNORMAL ECG WHEN COMPARED WITH ECG OF 06-APR-2019 09:52, ATRIAL FLUTTER HAS REPLACED ECTOPIC ATRIAL RHYTHM T WAVE INVERSION NO LONGER EVIDENT IN ANTERIOR LEADS Confirmed by OMER SOLARES, CLARENCE ([id number]) on 05/01/2019 8:47:45 AM Referred By: Confirmed By:CLARENCE TELLO MD
[2019-05-01] MEDS: SODIUM BICARBONATE 650 MG TABLET GT SCH (09:43)
[2019-05-01] MEDS: AMINO ACIDS/PROTEIN HYDROLYS 30 ML LIQUID.PKT GT SCH ×2 (09:43→17:37)
[2019-05-01] MEDS: PANTOPRAZOLE SOD 40 MG SUSPENSION PACKET NGT SCH (09:43)
[2019-05-01] MEDS: FINASTERIDE 5 MG TABLET (FP) PO SCH (09:44)
[2019-05-01] MEDS: ASCORBIC ACID 500 MG TABLET (FP) GT SCH ×2 (09:44→22:59)
[2019-05-01] MEDS ORDERED: PT OWN MED DRAWER 7, Y5N ONE ×2 (11:13→15:06)
[2019-05-01] MEDS: ARTIFICIAL TEARS (POLYVINYL ALCOHOL) OPTH DROPS OU SCH ×4 (11:21→22:58)
[2019-05-01] MEDS: BACITRACIN 15 GM TUBE TOPICAL OINTMENT TP SCH ×2 (11:22→22:57)
--- NOTE | 2019-05-01 11:36 | PN ---
Progress Note, Physician - Current Medication List Current Medications: Active Medications Acetaminophen (Tylenol Oral Solution -) 650 mg PO Q4H PRN PRN Reason: FEVER Albuterol Sulfate (Ventolin 0.083% Nebulizer Soln -) 1 amp NEB Q4H PRN PRN Reason: SHORT OF BREATH/WHEEZING Last Admin: 04/30/19 06:07 Dose: 1 amp Amino Acids (Prosource No Carb Liquid Pkt) 30 ml GT BID@0800,1730 [facility] Last Admin: 05/01/19 09:43 Dose: 30 ml Artificial Tears (Artificial Tears) 1 drop OU QID [facility] Last Admin: 05/01/19 11:21 Dose: 1 drop Ascorbic Acid (Vitamin C -) 500 mg GT BID [facility] Last Admin: 05/01/19 09:44 Dose: 500 mg Bacitracin (Bacitracin -) 1 applic TP BID [facility] Last Admin: 05/01/19 11:22 Dose: 1 applic Diltiazem HCl (Cardizem -) 30 mg PO Q6HPO [facility] Last Admin: 05/01/19 11:15 Dose: Not Given Finasteride (Proscar -) 5 mg PO DAILY [facility] Last Admin: 05/01/19 09:44 Dose: 5 mg Furosemide (Lasix Oral Solution -) 40 mg GT BIDLASIX [facility] Last Admin: 05/01/19 09:51 Dose: 40 mg Metoclopramide HCl (Reglan Oral Solution -) 5 mg PEG TIDAC [facility] Last Admin: 05/01/19 11:11 Dose: 5 mg Metoprolol Tartrate (Lopressor -) 50 mg PEG Q6HPO [facility] Last Admin: 05/01/19 11:20 Dose: 50 mg Metoprolol Tartrate (Lopressor Injection -) 5 mg IVPB Q4H PRN PRN Reason: HYPERTENSION Metoprolol Tartrate (Lopressor Injection -) 10 mg IVPB Q4H PRN PRN Reason: TACHYCARDIA Multivitamins/Minerals (Certavite-Antioxidant Liquid) 15 ml PEG DAILY [facility] Last Admin: 04/30/19 14:17 Dose: 15 ml Nystatin (Nystop Powder -) 1 applic TP TID [facility] Last Admin: 05/01/19 07:00 Dose: 1 applic Pantoprazole Sodium (Protonix Packets For Oral Suspension -) 40 mg NGT DAILY [facility] Last Admin: 05/01/19 09:43 Dose: 40 mg Sodium Bicarbonate (Sodium Bicarbonate -) 650 mg GT DAILY [facility] Last Admin: 05/01/19 09:43 Dose: 650 mg Sodium Chloride (Normal Saline For Inhalation -) 3 ml IH Q6H PRN PRN Reason: COUGH Last Admin: 04/22/19 22:10 Dose: 3 ml - Objective Vital Signs: Vital Signs Temperature 97.2 F L 05/01/19 06:00 Pulse Rate 92 H 05/01/19 11:20 Respiratory Rate 18 05/01/19 11:20 Blood Pressure 110/60 05/01/19 11:20 O2 Sat by Pulse Oximetry (%) 100 05/01/19 10:04 Cardiovascular: Yes: S1, S2 Respiratory: Yes: Mechanically Ventilated Gastrointestinal: Yes: Normal Bowel Sounds, Soft Labs: CBC, BMP 05/01/19 07:30 05/01/19 06:00 INR, PTT INR 1.43 (0.83-1.09) H 04/18/19 05:20 Fibrinogen 295.0 mg/dL (238-498) 04/16/19 05:30 Problem List - Problems (1) Ascites Code(s): R18.8 - OTHER ASCITES (2) Anemia Code(s): D64.9 - ANEMIA, UNSPECIFIED (3) Sepsis Code(s): A41.9 - SEPSIS, UNSPECIFIED ORGANISM (4) Acute and chronic respiratory failure Code(s): J96.20 - ACUTE AND CHR RESP FAILURE, UNSP W HYPOXIA OR HYPERCAPNIA (5) COPD (chronic obstructive pulmonary disease) Code(s): J44.9 - CHRONIC OBSTRUCTIVE PULMONARY DISEASE, UNSPECIFIED (6) Diabetes mellitus Code(s): E11.9 - TYPE 2 DIABETES MELLITUS WITHOUT COMPLICATIONS (7) HTN (hypertension) Code(s): I10 - ESSENTIAL (PRIMARY) HYPERTENSION (8) Atrial flutter Code(s): I48.92 - UNSPECIFIED ATRIAL FLUTTER (9) SBO (small bowel obstruction) Code(s): K56.609 - UNSP INTESTNL OBST, UNSP TO PARTIAL VERSUS COMPLETE OBST Assessment/Plan - Problems (1) Acute and chronic respiratory failure Assessment/Plan: -Pulm on board -Mechanically Ventilated -keep SpO2 >90% -Sputum Culture positive for MRSA -repeat CXR shows some atelectasis at the right base with right base blunting and dense left base compatible with fluid, atelectasis, or infiltrate -CXR Repeat Code(s): J96.20 - ACUTE AND CHR RESP FAILURE, UNSP W HYPOXIA OR HYPERCAPNIA (2) Anemia Assessment/Plan: -Hg 8.6 -monitor Hg daily and transfuse for Hg <7.0 to avoid fluid overload -GI and Hematology on board -Anemia profile shows low Iron, low TIBC, high Ferritin Code(s): D64.9 - ANEMIA, UNSPECIFIED (3) Atrial flutter Assessment/Plan: -Metoprolol and Cardizem -Cardiology on board -ADD Midodrine to alllow meds to be given Code(s): I48.92 - UNSPECIFIED ATRIAL FLUTTER (4) COPD (chronic obstructive pulmonary disease) Assessment/Plan: -Pulm on board -Mechanically Ventilated -keep SpO2 >90% -CXR shows cardiomegaly, left basilar compressive atelectasis, left pleural effusion, right pleural effusion -repeat CXR shows some atelectasis at the right base with right base blunting and dense left base compatible with fluid, atelectasis, or infiltrate Code(s): J44.9 - CHRONIC OBSTRUCTIVE PULMONARY DISEASE, UNSPECIFIED (5) Diabetes mellitus Assessment/Plan: -M ACHS -ISS Code(s): E11.9 - TYPE 2 DIABETES MELLITUS WITHOUT COMPLICATIONS (6) GI bleed Assessment/Plan: -Hg 7.8 -GI on board -EGD 04/19 shows normal esophageal mucosa, clot in the gastric fundus, no active bleeding, no abnormalities in duodenal mucosa -avoid NSAIDs -Pantoprazole -as per GI note patient family states patient had EGD within year, no reports to review Code(s): K92.2 - GASTROINTESTINAL HEMORRHAGE, UNSPECIFIED (7) HTN (hypertension) Assessment/Plan: -Lisinopril Code(s): I10 - ESSENTIAL (PRIMARY) HYPERTENSION (8) SBO (small bowel obstruction) Assessment/Plan: -CTAP shows no evidence of bowel obstruction -GI on board Code(s): K56.609 - UNSP INTESTNL OBST, UNSP TO PARTIAL VERSUS COMPLETE OBST (9) Ascites Assessment/Plan: -s/p paracentesis -Ascites Fluid specimen noted albumin 1.8 with elevated globulins, 2+ proteinuria, macrocytic anemia raise suspicion for hematologic malingnancy -Hematology on board Code(s): R18.8 - OTHER ASCITES (10) Sepsis Assessment/Plan: -ID on board -Leukocytosis -afebrile -Sputum Culture positive for MRSA -BC neg -UC positive ESBL, Klebsiella -Gentamicin and Zosyn -CXR shows cardiomegaly, left basilar compressive atelectasis, left pleural effusion, right pleural effusion -LA 2.1~1.3 Code(s): A41.9 - SEPSIS, UNSPECIFIED ORGANISM (11) Nephrostomy status Assessment/Plan: -Evaluated by Urology -Nephrostomy tube removed Code(s): Z93.6 - OTHER ARTIFICIAL OPENINGS OF URINARY TRACT STATUS (12) Decubitus ulcer of sacral region, stage 4 Assessment/Plan: -Plastic Surgery consult -turn q2h -offloading -daily dressing change Code(s): L89.154 - PRESSURE ULCER OF [place]CR[place] REGION, STAGE 4
--- NOTE | 2019-05-01 12:25 | PN ---
Progress Note (short form) - Note Progress Note: PULMONARY 12/400/40/5 mvv a/c mode HR 140'S Vented, awake. Afebrile VSS Gen: vented, awake Heart: RRR Lung: decreased breath sounds at the bases/exp rhonchi diffuse Abd: soft, nontender Ext: + edema meds/notes/images/micro noted A/P Chronic Respiratory Failure UTI/Pneumonia/Sepsis Lactic Acidosis Atrial Flutter with RVR Anemia CAD s/p CABG COPD HTN Hyperlipidemia Ascites - completed antibiotics - protonix - monitor H/H - rate control - enteral feeds as tolerated - DVT/GI prophylaxis - Would opt for comfort care given clinical deterioration Homar MCLEOD MD
[2019-05-01] MEDS: MULTIVIT-MINERALS ORAL LIQUID PEG SCH (15:07)
[2019-05-01] MEDS: MIDODRINE HCL 2.5 MG TABLET PO SCH (18:11)
[2019-05-01] MEDS: ALBUTEROL SO4 0.083% IH SOL 2.5 MG/3 ML VIAL.NEB. NEB PRN (20:10)
[2019-05-02] MEDS: ALBUTEROL SO4 0.083% IH SOL 2.5 MG/3 ML VIAL.NEB. NEB PRN (00:41)
[2019-05-02] MEDS: dilTIAZem HCL 30 MG TABLET (FP) PO SCH ×4 (07:48→23:20)
[2019-05-02] MEDS: METOPROLOL TARTRATE 50 MG TABLET (FP) PEG SCH ×4 (07:48→23:19)
[2019-05-02] MEDS: FUROSEMIDE 40 MG/5 ML UNIT-DOSE CUP GT SCH ×2 (07:49→15:03)
[2019-05-02] MEDS: METOCLOPRAMIDE HCL 5 MG/5 ML UNIT DOSE CUP PEG SCH ×3 (07:51→17:45)
[2019-05-02] MEDS: NYSTATIN POWDER 100,000 UNITS/GM - 15 GM TOPICAL POWDER TP SCH ×3 (07:52→23:21)
[2019-05-02] MEDS: AMINO ACIDS/PROTEIN HYDROLYS 30 ML LIQUID.PKT GT SCH ×2 (10:43→17:46)
[2019-05-02] MEDS: ASCORBIC ACID 500 MG TABLET (FP) GT SCH ×2 (10:43→23:19)
[2019-05-02] MEDS: FINASTERIDE 5 MG TABLET (FP) PO SCH (10:43)
[2019-05-02] MEDS: PANTOPRAZOLE SOD 40 MG SUSPENSION PACKET NGT SCH (10:43)
[2019-05-02] MEDS: MIDODRINE HCL 2.5 MG TABLET PO SCH ×2 (10:44→18:14)
[2019-05-02] MEDS: SODIUM BICARBONATE 650 MG TABLET GT SCH (10:44)
[2019-05-02] MEDS: MULTIVIT-MINERALS ORAL LIQUID PEG SCH (10:44)
[2019-05-02] MEDS: ARTIFICIAL TEARS (POLYVINYL ALCOHOL) OPTH DROPS OU SCH ×4 (10:44→23:21)
--- NOTE | 2019-05-02 11:17 | PN ---
Progress Note, Physician - Current Medication List Current Medications: Active Medications Acetaminophen (Tylenol Oral Solution -) 650 mg PO Q4H PRN PRN Reason: FEVER Albuterol Sulfate (Ventolin 0.083% Nebulizer Soln -) 1 amp NEB Q4H PRN PRN Reason: SHORT OF BREATH/WHEEZING Last Admin: 05/02/19 00:41 Dose: 1 amp Amino Acids (Prosource No Carb Liquid Pkt) 30 ml GT BID@0800,1730 [facility] Last Admin: 05/02/19 10:43 Dose: 30 ml Artificial Tears (Artificial Tears) 1 drop OU QID [facility] Last Admin: 05/02/19 10:44 Dose: 1 drop Ascorbic Acid (Vitamin C -) 500 mg GT BID [facility] Last Admin: 05/02/19 10:43 Dose: 500 mg Bacitracin (Bacitracin -) 1 applic TP BID [facility] Last Admin: 05/01/19 22:57 Dose: 1 applic Diltiazem HCl (Cardizem -) 30 mg PO Q6HPO [facility] Last Admin: 05/02/19 07:48 Dose: 30 mg Finasteride (Proscar -) 5 mg PO DAILY [facility] Last Admin: 05/02/19 10:43 Dose: 5 mg Furosemide (Lasix Oral Solution -) 40 mg GT BIDLASIX [facility] Last Admin: 05/02/19 07:49 Dose: 40 mg Metoclopramide HCl (Reglan Oral Solution -) 5 mg PEG TIDAC [facility] Last Admin: 05/02/19 07:51 Dose: 5 mg Metoprolol Tartrate (Lopressor -) 50 mg PEG Q6HPO [facility] Last Admin: 05/02/19 07:48 Dose: 50 mg Metoprolol Tartrate (Lopressor Injection -) 5 mg IVPB Q4H PRN PRN Reason: HYPERTENSION Metoprolol Tartrate (Lopressor Injection -) 10 mg IVPB Q4H PRN PRN Reason: TACHYCARDIA Midodrine (Proamatine -) 2.5 mg PO BID-MID [facility] Last Admin: 05/02/19 10:44 Dose: 2.5 mg Multivitamins/Minerals (Certavite-Antioxidant Liquid) 15 ml PEG DAILY [facility] Last Admin: 05/02/19 10:44 Dose: 15 ml Nystatin (Nystop Powder -) 1 applic TP TID [facility] Last Admin: 05/02/19 07:52 Dose: 1 applic Pantoprazole Sodium (Protonix Packets For Oral Suspension -) 40 mg NGT DAILY [facility] Last Admin: 05/02/19 10:43 Dose: 40 mg Sodium Bicarbonate (Sodium Bicarbonate -) 650 mg GT DAILY [facility] Last Admin: 05/02/19 10:44 Dose: 650 mg Sodium Chloride (Normal Saline For Inhalation -) 3 ml IH Q6H PRN PRN Reason: COUGH Last Admin: 04/22/19 22:10 Dose: 3 ml - Objective Vital Signs: Vital Signs Temperature 97.3 F L 05/02/19 06:00 Pulse Rate 93 H 05/02/19 08:34 Respiratory Rate 21 H 05/02/19 08:34 Blood Pressure 109/60 05/02/19 06:00 O2 Sat by Pulse Oximetry (%) 99 05/02/19 08:34 Cardiovascular: Yes: S1, S2 Respiratory: Yes: Regular, CTA Bilaterally Gastrointestinal: Yes: Normal Bowel Sounds, Soft Labs: CBC, BMP 05/01/19 07:30 05/01/19 06:00 INR, PTT INR 1.43 (0.83-1.09) H 04/18/19 05:20 Fibrinogen 295.0 mg/dL (238-498) 04/16/19 05:30 Problem List - Problems (1) Ascites Code(s): R18.8 - OTHER ASCITES (2) Anemia Code(s): D64.9 - ANEMIA, UNSPECIFIED (3) Sepsis Code(s): A41.9 - SEPSIS, UNSPECIFIED ORGANISM (4) Acute and chronic respiratory failure Code(s): J96.20 - ACUTE AND CHR RESP FAILURE, UNSP W HYPOXIA OR HYPERCAPNIA (5) COPD (chronic obstructive pulmonary disease) Code(s): J44.9 - CHRONIC OBSTRUCTIVE PULMONARY DISEASE, UNSPECIFIED (6) Diabetes mellitus Code(s): E11.9 - TYPE 2 DIABETES MELLITUS WITHOUT COMPLICATIONS (7) HTN (hypertension) Code(s): I10 - ESSENTIAL (PRIMARY) HYPERTENSION (8) Atrial flutter Code(s): I48.92 - UNSPECIFIED ATRIAL FLUTTER (9) SBO (small bowel obstruction) Code(s): K56.609 - UNSP INTESTNL OBST, UNSP TO PARTIAL VERSUS COMPLETE OBST Assessment/Plan - Problems (1) Acute and chronic respiratory failure Assessment/Plan: -Pulm on board -Mechanically Ventilated -keep SpO2 >90% -Sputum Culture positive for MRSA -repeat CXR shows some atelectasis at the right base with right base blunting and dense left base compatible with fluid, atelectasis, or infiltrate -CXR Repeat Code(s): J96.20 - ACUTE AND CHR RESP FAILURE, UNSP W HYPOXIA OR HYPERCAPNIA (2) Anemia Assessment/Plan: -Hg 8.6 -monitor Hg daily and transfuse for Hg <7.0 to avoid fluid overload -GI and Hematology on board -Anemia profile shows low Iron, low TIBC, high Ferritin Code(s): D64.9 - ANEMIA, UNSPECIFIED (3) Atrial flutter Assessment/Plan: -Metoprolol and Cardizem -Cardiology on board -ADD Midodrine to alllow meds to be given Code(s): I48.92 - UNSPECIFIED ATRIAL FLUTTER (4) COPD (chronic obstructive pulmonary disease) Assessment/Plan: -Pulm on board -Mechanically Ventilated -keep SpO2 >90% -CXR shows cardiomegaly, left basilar compressive atelectasis, left pleural effusion, right pleural effusion -repeat CXR shows some atelectasis at the right base with right base blunting and dense left base compatible with fluid, atelectasis, or infiltrate Code(s): J44.9 - CHRONIC OBSTRUCTIVE PULMONARY DISEASE, UNSPECIFIED (5) Diabetes mellitus Assessment/Plan: -BGM ACHS -ISS Code(s): E11.9 - TYPE 2 DIABETES MELLITUS WITHOUT COMPLICATIONS (6) GI bleed Assessment/Plan: -Hg 7.8 -GI on board -EGD 04/19 shows normal esophageal mucosa, clot in the gastric fundus, no active bleeding, no abnormalities in duodenal mucosa -avoid NSAIDs -Pantoprazole -as per GI note patient family states patient had EGD within year, no reports to review Code(s): K92.2 - GASTROINTESTINAL HEMORRHAGE, UNSPECIFIED (7) HTN (hypertension) Assessment/Plan: -Lisinopril Code(s): I10 - ESSENTIAL (PRIMARY) HYPERTENSION (8) SBO (small bowel obstruction) Assessment/Plan: -CTAP shows no evidence of bowel obstruction -GI on board Code(s): K56.609 - UNSP INTESTNL OBST, UNSP TO PARTIAL VERSUS COMPLETE OBST (9) Ascites Assessment/Plan: -s/p paracentesis -Ascites Fluid specimen noted albumin 1.8 with elevated globulins, 2+ proteinuria, macrocytic anemia raise suspicion for hematologic malingnancy -Hematology on board Code(s): R18.8 - OTHER ASCITES (10) Sepsis Assessment/Plan: -ID on board -Leukocytosis -afebrile -Sputum Culture positive for MRSA -BC neg -UC positive ESBL, Klebsiella -Gentamicin and Zosyn -CXR shows cardiomegaly, left basilar compressive atelectasis, left pleural effusion, right pleural effusion -LA 2.1~1.3 Code(s): A41.9 - SEPSIS, UNSPECIFIED ORGANISM (11) Nephrostomy status Assessment/Plan: -Evaluated by Urology -Nephrostomy tube removed Code(s): Z93.6 - OTHER ARTIFICIAL OPENINGS OF URINARY TRACT STATUS (12) Decubitus ulcer of sacral region, stage 4 Assessment/Plan: -Plastic Surgery consult -turn q2h -offloading -daily dressing change Code(s): L89.154 - PRESSURE ULCER OF [place]CR[place] REGION, STAGE 4
[2019-05-02] MEDS: BACITRACIN 15 GM TUBE TOPICAL OINTMENT TP SCH ×2 (12:35→23:20)
[2019-05-02] MEDS ORDERED: FENTANYL PATCH WASTE MC PRN (13:58)
[2019-05-02] MEDS: fentaNYL 12mcg/hr PATCH.TD72 TD SCH (15:04)
[2019-05-03] MEDS: NYSTATIN POWDER 100,000 UNITS/GM - 15 GM TOPICAL POWDER TP SCH ×3 (06:07→21:26)
[2019-05-03] MEDS: METOCLOPRAMIDE HCL 5 MG/5 ML UNIT DOSE CUP PEG SCH ×3 (06:08→17:39)
[2019-05-03] MEDS: FUROSEMIDE 40 MG/5 ML UNIT-DOSE CUP GT SCH ×2 (06:08→15:13)
[2019-05-03] MEDS: METOPROLOL TARTRATE 50 MG TABLET (FP) PEG SCH ×3 (06:08→17:39)
[2019-05-03] MEDS: dilTIAZem HCL 30 MG TABLET (FP) PO SCH ×3 (06:08→17:39)
[2019-05-03] MEDS ORDERED: PT OWN MED DRAWER 7, Y5N ONE ×3 (08:46→20:59)
[2019-05-03] MEDS: AMINO ACIDS/PROTEIN HYDROLYS 30 ML LIQUID.PKT GT SCH ×2 (09:17→17:39)
[2019-05-03] MEDS: ASCORBIC ACID 500 MG TABLET (FP) GT SCH ×2 (09:18→21:25)
[2019-05-03] MEDS: SODIUM BICARBONATE 650 MG TABLET GT SCH (09:18)
[2019-05-03] MEDS: PANTOPRAZOLE SOD 40 MG SUSPENSION PACKET NGT SCH (09:18)
[2019-05-03] MEDS: FINASTERIDE 5 MG TABLET (FP) PO SCH (09:18)
[2019-05-03] MEDS: MIDODRINE HCL 2.5 MG TABLET PO SCH ×2 (09:19→17:44)
[2019-05-03] MEDS: MULTIVIT-MINERALS ORAL LIQUID PEG SCH (09:19)
[2019-05-03] MEDS: ARTIFICIAL TEARS (POLYVINYL ALCOHOL) OPTH DROPS OU SCH ×4 (09:29→21:25)
--- NOTE | 2019-05-03 11:06 | PN ---
Progress Note, Physician Chief Complaint: Acute on Chronic Respiratory Failure UTI Ascites History of Present Illness: mechanical vent H/H stable returned from EGD- source of bleeding still unidentifiable + melena/hematochezia Family frustrated of not being able to understand the source of emerging chronic and acute issues, mainly bleeding Has had bleeding from bladder in the past at [facility]-records reviewed Had rectal bleed in 04/2018, went to [facility] in [place], await records Awaiting records from [facility] and [facility] 04/22/18: Awake and alert Started on reglan SSRI discontinued due to interaction PEG residual 50 cc this AM 04/26/19 Vomited yesterday Tube feeds held GI aware Was on IV reglan, was dc'd? 05/03/19 Tolerating feedings Seen by Urology Nephrostomy tubes dc'd Seen by Wound care Dr Grijalva- no additional interventions recommended BP labile- on multiple meds, will get cardiology to re-eval. - Current Medication List Current Medications: Active Medications Acetaminophen (Tylenol Oral Solution -) 650 mg PO Q4H PRN PRN Reason: FEVER Albuterol Sulfate (Ventolin 0.083% Nebulizer Soln -) 1 amp NEB Q4H PRN PRN Reason: SHORT OF BREATH/WHEEZING Last Admin: 05/02/19 00:41 Dose: 1 amp Amino Acids (Prosource No Carb Liquid Pkt) 30 ml GT BID@0800,1730 [facility] Last Admin: 05/03/19 09:17 Dose: 30 ml Artificial Tears (Artificial Tears) 1 drop OU QID [facility] Last Admin: 05/03/19 09:29 Dose: 1 drop Ascorbic Acid (Vitamin C -) 500 mg GT BID [facility] Last Admin: 05/03/19 09:18 Dose: 500 mg Bacitracin (Bacitracin -) 1 applic TP BID [facility] Last Admin: 05/02/19 23:20 Dose: 1 applic Diltiazem HCl (Cardizem -) 30 mg PO Q6HPO [facility] Last Admin: 05/03/19 06:08 Dose: 30 mg Fentanyl (Duragesic 12mcg Patch -) 1 patch TD Q72H [facility] Stop: 05/09/19 13:58 Last Admin: 05/02/19 15:04 Dose: 1 patch Finasteride (Proscar -) 5 mg PO DAILY [facility] Last Admin: 05/03/19 09:18 Dose: 5 mg Furosemide (Lasix Oral Solution -) 40 mg GT BIDLASIX [facility] Last Admin: 05/03/19 06:08 Dose: 40 mg Metoclopramide HCl (Reglan Oral Solution -) 5 mg PEG TIDAC [facility] Last Admin: 05/03/19 06:08 Dose: 5 mg Metoprolol Tartrate (Lopressor -) 50 mg PEG Q6HPO [facility] Last Admin: 05/03/19 06:08 Dose: 50 mg Metoprolol Tartrate (Lopressor Injection -) 5 mg IVPB Q4H PRN PRN Reason: HYPERTENSION Metoprolol Tartrate (Lopressor Injection -) 10 mg IVPB Q4H PRN PRN Reason: TACHYCARDIA Midodrine (Proamatine -) 2.5 mg PO BID-MID [facility] Last Admin: 05/03/19 09:19 Dose: 2.5 mg Miscellaneous (Duragesic Patch Waste) 1 each MC PRN PRN PRN Reason: PAIN Multivitamins/Minerals (Certavite-Antioxidant Liquid) 15 ml PEG DAILY [facility] Last Admin: 05/03/19 09:19 Dose: 15 ml Nystatin (Nystop Powder -) 1 applic TP TID [facility] Last Admin: 05/03/19 06:07 Dose: 1 applic Pantoprazole Sodium (Protonix Packets For Oral Suspension -) 40 mg NGT DAILY [facility] Last Admin: 05/03/19 09:18 Dose: 40 mg Sodium Bicarbonate (Sodium Bicarbonate -) 650 mg GT DAILY [facility] Last Admin: 05/03/19 09:18 Dose: 650 mg Sodium Chloride (Normal Saline For Inhalation -) 3 ml IH Q6H PRN PRN Reason: COUGH Last Admin: 04/22/19 22:10 Dose: 3 ml - Objective Vital Signs: Vital Signs Temperature 98.5 F 05/03/19 10:00 Pulse Rate 82 05/03/19 10:00 Respiratory Rate 32 H 05/03/19 10:00 Blood Pressure 114/65 05/03/19 10:00 O2 Sat by Pulse Oximetry (%) 98 05/02/19 21:00 Constitutional: Yes: Well Nourished, No Distress, Calm Cardiovascular: Yes: Regular Rate and Rhythm Respiratory: Yes: Mechanically Ventilated, Rhonchi (diffuse), Tachypnea Gastrointestinal: Yes: Normal Bowel Sounds, Soft, Abdomen, Obese Genitourinary: Yes: Huber Present Musculoskeletal: Yes: Muscle Weakness Extremities: Yes: Other (generalized atrophy) Peripheral Pulses WNL: Yes Neurological: Yes: Alert, Lethargy, Pre-Existing Deficit Psychiatric: Yes: Alert Labs: CBC, BMP 05/01/19 07:30 05/01/19 06:00 INR, PTT INR 1.43 (0.83-1.09) H 04/18/19 05:20 Fibrinogen 295.0 mg/dL (238-498) 04/16/19 05:30 Problem List - Problems (1) PÉREZ (acute kidney injury) Assessment/Plan: -Nephrology consult -monitor trend -Cr stable -Renal U/S reviewed -Furosemide as per renal Problems reviewed: Yes Code(s): N17.9 - ACUTE KIDNEY FAILURE, UNSPECIFIED (2) Vomiting Assessment/Plan: -resolved -Continue Reglan 10 mg AC -GI on board -abd xray reviewed -Tube feedings titrated up to goal rate of 45 cc/hr-tolerating well Problems reviewed: Yes Code(s): R11.10 - VOMITING, UNSPECIFIED (3) Nephrostomy status Assessment/Plan: -BL -Seen by Urology -nephrostomy tubes discontinued Problems reviewed: Yes Code(s): Z93.6 - OTHER ARTIFICIAL OPENINGS OF URINARY TRACT STATUS (4) Macular degeneration Assessment/Plan: -Family's complaint of pt having macular degeneration - will get ophthalmology consult-still pending consult Problems reviewed: Yes Code(s): H35.30 - UNSPECIFIED MACULAR DEGENERATION (5) Decubitus ulcer of sacral region, stage 4 Assessment/Plan: -Wound care consult appreciated -Continue wet to dry dressings -Offloading -T&P Q2H Problems reviewed: Yes Code(s): L89.154 - PRESSURE ULCER OF [place]CR[place] REGION, STAGE 4 Assessment/Plan (1) Acute and chronic respiratory failure Assessment/Plan: -Pulm on board -Mechanically Ventilated -keep SpO2 >90% -CXR shows cardiomegaly, left basilar compressive atelectasis, left pleural effusion, right pleural effusion -Sputum Culture positive for MRSA -Encourage use of passy berta valve daily -MBS when stable Code(s): J96.20 - ACUTE AND CHR RESP FAILURE, UNSP W HYPOXIA OR HYPERCAPNIA (2) Anemia Assessment/Plan: -Stable -monitor Hg weekly outpatient and transfuse for Hg <7.0 to avoid fluid overload -GI and Hematology on board Code(s): D64.9 - ANEMIA, UNSPECIFIED (3) Atrial flutter Assessment/Plan: -Metoprolol and Cardizem -Cardiology on board -Rate controlled now Code(s): I48.92 - UNSPECIFIED ATRIAL FLUTTER (4) COPD (chronic obstructive pulmonary disease) Assessment/Plan: -Pulm on board -Mechanically Ventilated -keep SpO2 >90% Code(s): J44.9 - CHRONIC OBSTRUCTIVE PULMONARY DISEASE, UNSPECIFIED (5) Diabetes mellitus Assessment/Plan: -BGM ACHS -ISS Code(s): E11.9 - TYPE 2 DIABETES MELLITUS WITHOUT COMPLICATIONS (6) GI bleed Assessment/Plan: -GI on board -Pantoprazole GT -EGD-unable to identify the source of bleeding -CT Abd/pelvis was negative for SBO Code(s): K92.2 - GASTROINTESTINAL HEMORRHAGE, UNSPECIFIED (7) HTN (hypertension) Assessment/Plan: -Metoprolol + Cardizem + Furosemide 40 bid+ Midodrine -Asked Cardiology to revisit meds Code(s): I10 - ESSENTIAL (PRIMARY) HYPERTENSION (8) SBO (small bowel obstruction) Assessment/Plan: -CTAP shows no evidence of bowel obstruction -GI on board Code(s): K56.609 - UNSP INTESTNL OBST, UNSP TO PARTIAL VERSUS COMPLETE OBST (9) Ascites Assessment/Plan: -s/p paracentesis tis admission -Ascites Fluid specimen noted albumin 1.8 with elevated globulins, 2+ proteinuria, macrocytic anemia raise suspicion for hematologic malingnancy -Hematology on board -Furosemide 40 mg BID Code(s): R18.8 - OTHER ASCITES (10) Sepsis Assessment/Plan: -ID on board -Leukocytosis -afebrile -Sputum Culture positive for MRSA -BC neg -UC positive ESBL, Klebsiella -Completed course of Zosyn -Off IV abx Code(s): A41.9 - SEPSIS, UNSPECIFIED ORGANISM Assessment/Plan see problem list dvt ppx Spoke to daughter Beulah over the phone.
--- NOTE | 2019-05-03 11:17 | PN ---
Progress Note (short form) - Note Progress Note: PULMONARY Vented, sleeping. No fevers recorded. Vital Signs Period Temp Pulse Resp BP Sys/Kang Pulse Ox Last 24 Hr 98.5 F-99.4 F 81-96 22-35 107-139/60-76 98-98 Gen: vented, awake Heart: RRR Lung: decreased breath sounds at the bases Abd: soft, nontender Ext: + edema CBC, BMP 05/01/19 07:30 05/01/19 06:00 Active Medications Acetaminophen (Tylenol Oral Solution -) 650 mg PO Q4H PRN PRN Reason: FEVER Albuterol Sulfate (Ventolin 0.083% Nebulizer Soln -) 1 amp NEB Q4H PRN PRN Reason: SHORT OF BREATH/WHEEZING Last Admin: 05/02/19 00:41 Dose: 1 amp Amino Acids (Prosource No Carb Liquid Pkt) 30 ml GT BID@0800,1730 [facility] Last Admin: 05/03/19 09:17 Dose: 30 ml Artificial Tears (Artificial Tears) 1 drop OU QID [facility] Last Admin: 05/03/19 09:29 Dose: 1 drop Ascorbic Acid (Vitamin C -) 500 mg GT BID [facility] Last Admin: 05/03/19 09:18 Dose: 500 mg Bacitracin (Bacitracin -) 1 applic TP BID [facility] Last Admin: 05/02/19 23:20 Dose: 1 applic Diltiazem HCl (Cardizem -) 30 mg PO Q6HPO [facility] Last Admin: 05/03/19 06:08 Dose: 30 mg Fentanyl (Duragesic 12mcg Patch -) 1 patch TD Q72H [facility] Stop: 05/09/19 13:58 Last Admin: 05/02/19 15:04 Dose: 1 patch Finasteride (Proscar -) 5 mg PO DAILY [facility] Last Admin: 05/03/19 09:18 Dose: 5 mg Furosemide (Lasix Oral Solution -) 40 mg GT BIDLASIX [facility] Last Admin: 05/03/19 06:08 Dose: 40 mg Metoclopramide HCl (Reglan Oral Solution -) 5 mg PEG TIDAC [facility] Last Admin: 05/03/19 06:08 Dose: 5 mg Metoprolol Tartrate (Lopressor -) 50 mg PEG Q6HPO [facility] Last Admin: 01/13/20 06:08 Dose: 50 mg Metoprolol Tartrate (Lopressor Injection -) 5 mg IVPB Q4H PRN PRN Reason: HYPERTENSION Metoprolol Tartrate (Lopressor Injection -) 10 mg IVPB Q4H PRN PRN Reason: TACHYCARDIA Midodrine (Proamatine -) 2.5 mg PO BID-MID [facility] Last Admin: 05/03/19 09:19 Dose: 2.5 mg Miscellaneous (Duragesic Patch Waste) 1 each [facility] PRN PRN PRN Reason: PAIN Multivitamins/Minerals (Certavite-Antioxidant Liquid) 15 ml PEG DAILY [facility] Last Admin: 05/03/19 09:19 Dose: 15 ml Nystatin (Nystop Powder -) 1 applic TP TID [facility] Last Admin: 05/03/19 06:07 Dose: 1 applic Pantoprazole Sodium (Protonix Packets For Oral Suspension -) 40 mg NGT DAILY [facility] Last Admin: 05/03/19 09:18 Dose: 40 mg Sodium Bicarbonate (Sodium Bicarbonate -) 650 mg GT DAILY [facility] Last Admin: 05/03/19 09:18 Dose: 650 mg Sodium Chloride (Normal Saline For Inhalation -) 3 ml IH Q6H PRN PRN Reason: COUGH Last Admin: 04/22/19 22:10 Dose: 3 ml A/P Chronic Respiratory Failure UTI/Pneumonia/Sepsis Lactic Acidosis Atrial Flutter with RVR GI Bleed Anemia CAD s/p CABG COPD HTN Hyperlipidemia Ascites - completed antibiotics - protonix - monitor H/H - rate control - enteral feeds as tolerated - DVT/GI prophylaxis
--- NOTE | 2019-05-03 11:54 | PN ---
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 RT reports copious thick secretions. PMV deferred for now. However, consider using it for communication/palliative care/with family/staff as needed to allow pt to communicate.
[2019-05-03] MEDS: BACITRACIN 15 GM TUBE TOPICAL OINTMENT TP SCH ×2 (12:05→21:26)
--- NOTE | 2019-05-03 12:25 | PN ---
Progress Note (short form) - Note Progress Note: Renal follow up for PÉREZ Seen and examined at the bedside awake and alert on vent via trach no overnight events making urine Vital Signs Temperature 98.5 F 05/03/19 10:00 Pulse Rate 82 05/03/19 10:00 Respiratory Rate 22 H 05/03/19 12:21 Blood Pressure 114/65 05/03/19 10:00 O2 Sat by Pulse Oximetry (%) 98 05/02/19 21:00 Intake & Output 04/30/19 05/01/19 05/02/19 05/03/19 23:59 23:59 23:59 23:59 Intake Total 582 801 9909 0 Output Total 1600 1700 2000 600 Balance -740 -800 -800 -600 NAD awake and alert neck supple RRR CTA soft NT/ND + upper and lower extremity edema CBC, BMP 05/01/19 07:30 05/01/19 06:00 Current Medications Acetaminophen (Tylenol Oral Solution -) 650 mg PO Q4H PRN PRN Reason: FEVER Albuterol Sulfate (Ventolin 0.083% Nebulizer Soln -) 1 amp NEB Q4H PRN PRN Reason: SHORT OF BREATH/WHEEZING Last Admin: 05/02/19 00:41 Dose: 1 amp Amino Acids (Prosource No Carb Liquid Pkt) 30 ml GT BID@0800,1730 [facility] Last Admin: 05/03/19 09:17 Dose: 30 ml Artificial Tears (Artificial Tears) 1 drop OU QID [facility] Last Admin: 05/03/19 09:29 Dose: 1 drop Ascorbic Acid (Vitamin C -) 500 mg GT BID [facility] Last Admin: 05/03/19 09:18 Dose: 500 mg Bacitracin (Bacitracin -) 1 applic TP BID [facility] Last Admin: 05/02/19 23:20 Dose: 1 applic Diltiazem HCl (Cardizem -) 30 mg PO Q6HPO [facility] Last Admin: 05/03/19 06:08 Dose: 30 mg Fentanyl (Duragesic 12mcg Patch -) 1 patch TD Q72H [facility] Stop: 05/09/19 13:58 Last Admin: 05/02/19 15:04 Dose: 1 patch Finasteride (Proscar -) 5 mg PO DAILY [facility] Last Admin: 05/03/19 09:18 Dose: 5 mg Furosemide (Lasix Oral Solution -) 40 mg GT BIDLASIX [facility] Last Admin: 05/03/19 06:08 Dose: 40 mg Metoclopramide HCl (Reglan Oral Solution -) 5 mg PEG TIDAC [facility] Last Admin: 05/03/19 06:08 Dose: 5 mg Metoprolol Tartrate (Lopressor -) 50 mg PEG Q6HPO [facility] Last Admin: 05/03/19 06:08 Dose: 50 mg Metoprolol Tartrate (Lopressor Injection -) 5 mg IVPB Q4H PRN PRN Reason: HYPERTENSION Metoprolol Tartrate (Lopressor Injection -) 10 mg IVPB Q4H PRN PRN Reason: TACHYCARDIA Midodrine (Proamatine -) 2.5 mg PO BID-MID [facility] Last Admin: 05/03/19 09:19 Dose: 2.5 mg Miscellaneous (Duragesic Patch Waste) 1 each MC PRN PRN PRN Reason: PAIN Multivitamins/Minerals (Certavite-Antioxidant Liquid) 15 ml PEG DAILY [facility] Last Admin: 05/03/19 09:19 Dose: 15 ml Nystatin (Nystop Powder -) 1 applic TP TID [facility] Last Admin: 05/03/19 06:07 Dose: 1 applic Pantoprazole Sodium (Protonix Packets For Oral Suspension -) 40 mg NGT DAILY [facility] Last Admin: 05/03/19 09:18 Dose: 40 mg Sodium Bicarbonate (Sodium Bicarbonate -) 650 mg GT DAILY [facility] Last Admin: 05/03/19 09:18 Dose: 650 mg Sodium Chloride (Normal Saline For Inhalation -) 3 ml IH Q6H PRN PRN Reason: COUGH Last Admin: 04/22/19 22:10 Dose: 3 ml 83 year old gentleman with history of respiratory failure on vent via trach, prostate cancer s/p radiation therapy, CAD s/p CABG, hypertension, DM who presented from [place] with coffee ground emesis who has developed acute kidney injury during the hospital admission. 1. Acute kidney injury secondary to pre-renal injury vs. contrast nephropathy 2. Hypernatremia 3. Acute on chronic anemia with suspected GI bleed 4. Chronic respiratory failure on vent 5. Leukocytoiss 6. BPH/Prostate cancer 7. Mild hyperkalemia likely secondary to potassium/phos supplementation Renal function stable, no new labs since 05/01/2019, ordered labs for this am Continue Lasix 40mg PO BID for now for fluid management nephrostomy tubes removed by Continue oral feeds and free water continue proscar continue vent support Thank you Andrew Finney DO
--- NOTE | 2019-05-03 16:03 | PN ---
Progress Note, Physician Chief Complaint: Reconsult for cardiac medications reconciliation. The patient appear weak but is awake and alert, ventilated through trach. No acute distress. History of Present Illness: 83 year old male with a PMHx of HTN, DM, CAD s/p CABG, ESRD, COPD, prostate cancer, s/p radiation, and s/p trach/vent/[facility]. EGD 04/16/19 showed no source of active bleeding. But clotted blood seen in fundus. He remains in atrial flutter with controlled VR 85-100 BPM on current medications. Echocardiogram 04/20/19: normal LV size and systolic function. LVEF 55%. Normal RV. Moderate LA and RA dilatation. Moderate MAC with mild MR. FCAV without stenosis. Arrhythmia-aflutter vs atach -HR has remained adequately controlled on current regimen -cont current meds with diltiazem and metoprolol via PEG at current doses -not a candidate for AC due to bleed -echo 04/20/19 showed normal LVEF, mild valvular abnl, and stable moderately dilated TAA -BP adequately controlled No additional inpatient cardiac work up is needed at this time. Will see as needed. Please call with any questions. - Current Medication List Current Medications: Active Medications Acetaminophen (Tylenol Oral Solution -) 650 mg PO Q4H PRN PRN Reason: FEVER Acetylcysteine (Mucomyst 20 Oral / Inh Use Only*) 400 mg NEB RBID [facility] Albuterol Sulfate (Ventolin 0.083% Nebulizer Soln -) 1 amp NEB Q4H PRN PRN Reason: SHORT OF BREATH/WHEEZING Last Admin: 05/02/19 00:41 Dose: 1 amp Amino Acids (Prosource No Carb Liquid Pkt) 30 ml GT BID@0800,1730 [facility] Last Admin: 05/03/19 09:17 Dose: 30 ml Artificial Tears (Artificial Tears) 1 drop OU QID [facility] Last Admin: 05/03/19 13:04 Dose: 1 drop Ascorbic Acid (Vitamin C -) 500 mg GT BID [facility] Last Admin: 05/03/19 09:18 Dose: 500 mg Bacitracin (Bacitracin -) 1 applic TP BID [facility] Last Admin: 05/03/19 12:05 Dose: 1 applic Diltiazem HCl (Cardizem -) 30 mg PO Q6HPO [facility] Last Admin: 05/03/19 13:04 Dose: 30 mg Fentanyl (Duragesic 12mcg Patch -) 1 patch TD Q72H [facility] Stop: 05/09/19 13:58 Last Admin: 05/02/19 15:04 Dose: 1 patch Finasteride (Proscar -) 5 mg PO DAILY [facility] Last Admin: 05/03/19 09:18 Dose: 5 mg Furosemide (Lasix Oral Solution -) 40 mg GT BIDLASIX [facility] Last Admin: 05/03/19 15:13 Dose: 40 mg Metoclopramide HCl (Reglan Oral Solution -) 5 mg PEG TIDAC [facility] Last Admin: 05/03/19 12:00 Dose: 5 mg Metoprolol Tartrate (Lopressor -) 50 mg PEG Q6HPO [facility] Last Admin: 05/03/19 13:03 Dose: 50 mg Metoprolol Tartrate (Lopressor Injection -) 5 mg IVPB Q4H PRN PRN Reason: HYPERTENSION Metoprolol Tartrate (Lopressor Injection -) 10 mg IVPB Q4H PRN PRN Reason: TACHYCARDIA Midodrine (Proamatine -) 2.5 mg PO BID-MID [facility] Last Admin: 05/03/19 09:19 Dose: 2.5 mg Miscellaneous (Duragesic Patch Waste) 1 each MC PRN PRN PRN Reason: PAIN Multivitamins/Minerals (Certavite-Antioxidant Liquid) 15 ml PEG DAILY [facility] Last Admin: 05/03/19 09:19 Dose: 15 ml Nystatin (Nystop Powder -) 1 applic TP TID [facility] Last Admin: 05/03/19 12:05 Dose: 1 applic Pantoprazole Sodium (Protonix Packets For Oral Suspension -) 40 mg NGT DAILY [facility] Last Admin: 05/03/19 09:18 Dose: 40 mg Sodium Bicarbonate (Sodium Bicarbonate -) 650 mg GT DAILY [facility] Last Admin: 05/03/19 09:18 Dose: 650 mg Sodium Chloride (Normal Saline For Inhalation -) 3 ml IH Q6H PRN PRN Reason: COUGH Last Admin: 04/22/19 22:10 Dose: 3 ml - Objective Vital Signs: Vital Signs Temperature 98.2 F 05/03/19 14:00 Pulse Rate 95 H 05/03/19 14:00 Respiratory Rate 22 H 05/03/19 12:21 Blood Pressure 123/81 05/03/19 14:00 O2 Sat by Pulse Oximetry (%) 98 05/03/19 09:00 General: Well developed. Chronic ill and frail. No acute distress. Head: Normocephalic. Atraumatic, Neck: Trach in place. Heart: Normal S1, S2: Irregular rhythm and rate. Lungs: Symmetrical coarse BS. Abdomen: Soft. Bowel sound positive. Non tender. No masses. Extremities: Multiple ecchymoses. No edema. No clubbing or cyanosis. Labs: CBC, BMP 05/01/19 07:30 05/01/19 06:00 INR, PTT INR 1.43 (0.83-1.09) H 04/18/19 05:20 Fibrinogen 295.0 mg/dL (238-498) 04/16/19 05:30 Assessment/Plan 83 year old male with a PMHx of HTN, DM, CAD s/p CABG, ESRD, COPD, prostate cancer, s/p radiation, and s/p trach/vent/peg [facility] ground [facility]. EGD 04/16/19 showed no source of active bleeding. But clotted blood seen in fundus. He remains in atrial flutter with controlled VR 85-100 BPM on current medications. Echocardiogram 04/20/19: normal LV size and systolic function. LVEF 55%. Normal RV. Moderate LA and RA dilatation. Moderate MAC with mild MR. FCAV without stenosis. 05/03/19: Reconsult for cardiac medications reconciliation. Remains in atrial flutter with variable AV block and controlled VR. BP is stable and in normal range. Change metoprolol tartrate to 100 m BID. Change diltiazem to 60 mg BID. Continue NaCl Increase water intake. May d/c midodrine and monitor BP. No AC given GI bleeding Please do not hesitate to call us for reconsult at any time if any further questions or additional issue arises regarding this patient.
[2019-05-03 17:39] LABS: HEMATOCRIT 27.4 % (35.4-49); HEMOGLOBIN 8.9 GM/dL (11.7-16.9); MCH 32.4 pg (25.7-33.7); MCHC 32.3 g/dl (32.0-35.9); MEAN CELL VOLUME 100.2 fl (80-96); PLATELET COUNT 121 K/MM3 (134-434); RBC 2.73 M/mm3 (4.00-5.60); RDW 25.1 % (11.9-15.9); WHITE BLOOD COUNT 15.5 K/mm3 (4.0-10.0)
[2019-05-03 17:48] LABS: ADD RBC MORPHOLOGY YES
[2019-05-03 18:15] LABS: ALBUMIN 1.2 g/dl (3.4-5.0); BILIRUBIN,TOTAL 0.6 mg/dL (0.2-1); BLOOD UREA NITROGEN 53.4 mg/dL (7-18); CALCIUM 7.3 mg/dL (8.5-10.1); CREATININE 1.7 mg/dL (0.55-1.3); POTASSIUM 4.5 mmol/L (3.5-5.1); TOT PROT 6.8 g/dl (6.4-8.2)
[2019-05-03 18:52] LABS: ANISOCYTOSIS 2+; MACROCYTOSIS 1+; PLATELET ESTIMATE DECREASED; TARGET CELLS 1+
--- NOTE | 2019-05-03 19:29 | HOSP ---
Subjective - Review of Symptoms Events since last encounter: 83 year old male with a PMHx of HTN, DM, CAD s/p CABG, ESRD, COPD, prostate cancer, s/p radiation, and s/p trach/vent/peg admitted from senior care for coffee ground emesis. EGD 04/16/19 showed no source of active bleeding. leukocytosis trending upward 13.2 --> 11.2 --. 15.5 no fevers, hemodynamics appear stable patient had Id consult 04/30 with rec if wbc trend up consider bcx blood cultures ordered if noted with fever, tachy will consider antibiotics Physical Examination Vital Signs: Vital Signs Temperature 97.6 F 05/03/19 18:00 Pulse Rate 101 H 05/03/19 18:00 Respiratory Rate 24 H 05/03/19 18:00 Blood Pressure 129/65 05/03/19 18:00 O2 Sat by Pulse Oximetry (%) 98 05/03/19 09:00 Labs: CBC, BMP 05/03/19 16:15 05/03/19 11:15
[2019-05-03] MEDS: SODIUM CHLORIDE FOR INHALATION 3 ML VIAL.NEB IH PRN (20:05)
[2019-05-03] MEDS: ACETYLCYSTEINE 20% 200MG/ML 4 ML VIAL *FOR ORAL / INH USE ONLY NEB SCH (20:05)
[2019-05-04] MEDS: dilTIAZem HCL 30 MG TABLET (FP) PO SCH ×3 (00:05→14:28)
[2019-05-04] MEDS: METOPROLOL TARTRATE 50 MG TABLET (FP) PEG SCH ×3 (00:05→14:31)
[2019-05-04] MEDS: NYSTATIN POWDER 100,000 UNITS/GM - 15 GM TOPICAL POWDER TP SCH ×2 (05:18→15:00)
[2019-05-04] MEDS: FUROSEMIDE 40 MG/5 ML UNIT-DOSE CUP GT SCH ×2 (05:18→15:00)
[2019-05-04] MEDS: METOCLOPRAMIDE HCL 5 MG/5 ML UNIT DOSE CUP PEG SCH ×3 (06:20→18:44)
[2019-05-04] MEDS: ACETYLCYSTEINE 20% 200MG/ML 4 ML VIAL *FOR ORAL / INH USE ONLY NEB SCH ×2 (08:44→21:15)
[2019-05-04] MEDS: ALBUTEROL SO4 0.083% IH SOL 2.5 MG/3 ML VIAL.NEB. NEB PRN (08:44)
[2019-05-04] MEDS ORDERED: PT OWN MED DRAWER 7, Y5N ONE (09:41)
[2019-05-04] MEDS: AMINO ACIDS/PROTEIN HYDROLYS 30 ML LIQUID.PKT GT SCH ×2 (10:00→18:45)
[2019-05-04] MEDS: SODIUM BICARBONATE 650 MG TABLET GT SCH (10:24)
[2019-05-04] MEDS: PANTOPRAZOLE SOD 40 MG SUSPENSION PACKET NGT SCH (10:24)
[2019-05-04] MEDS: MULTIVIT-MINERALS ORAL LIQUID PEG SCH (10:25)
[2019-05-04] MEDS: FINASTERIDE 5 MG TABLET (FP) PO SCH (10:25)
[2019-05-04] MEDS: ASCORBIC ACID 500 MG TABLET (FP) GT SCH ×2 (10:25→23:58)
[2019-05-04] MEDS: MIDODRINE HCL 2.5 MG TABLET PO SCH (10:25)
[2019-05-04] MEDS: ARTIFICIAL TEARS (POLYVINYL ALCOHOL) OPTH DROPS OU SCH ×3 (10:26→18:45)
--- NOTE | 2019-05-04 12:28 | PN ---
Progress Note (short form) - Note Progress Note: PULMONARY Vented, arousable. Low grade fever overnight. Vital Signs Period Temp Pulse Resp BP Sys/Kang Pulse Ox Last 24 Hr 97.6 F-100.4 F 95-109 20-37 118-129/54-81 100 Gen: vented, awake Heart: RRR Lung: decreased breath sounds at the bases Abd: soft, nontender Ext: + edema CBC, BMP 05/03/19 16:15 05/03/19 11:15 Active Medications Acetaminophen (Tylenol Oral Solution -) 650 mg PO Q4H PRN PRN Reason: FEVER Last Admin: 05/03/19 21:22 Dose: 650 mg Acetylcysteine (Mucomyst 20 Oral / Inh Use Only*) 400 mg NEB RBID [facility] Last Admin: 05/04/19 08:44 Dose: 400 mg Albuterol Sulfate (Ventolin 0.083% Nebulizer Soln -) 1 amp NEB Q4H PRN PRN Reason: SHORT OF BREATH/WHEEZING Last Admin: 05/04/19 08:44 Dose: 1 amp Amino Acids (Prosource No Carb Liquid Pkt) 30 ml GT BID@0800,1730 [facility] Last Admin: 05/04/19 10:00 Dose: 30 ml Artificial Tears (Artificial Tears) 1 drop OU QID [facility] Last Admin: 05/04/19 10:26 Dose: 1 drop Ascorbic Acid (Vitamin C -) 500 mg GT BID [facility] Last Admin: 05/04/19 10:25 Dose: 500 mg Bacitracin (Bacitracin -) 1 applic TP BID [facility] Last Admin: 05/03/19 21:26 Dose: 1 applic Diltiazem HCl (Cardizem -) 30 mg PO Q6HPO [facility] Last Admin: 05/04/19 05:18 Dose: 30 mg Fentanyl (Duragesic 12mcg Patch -) 1 patch TD Q72H [facility] Stop: 05/09/19 13:58 Last Admin: 05/02/19 15:04 Dose: 1 patch Finasteride (Proscar -) 5 mg PO DAILY [facility] Last Admin: 05/04/19 10:25 Dose: 5 mg Furosemide (Lasix Oral Solution -) 40 mg GT BIDLASIX [facility] Last Admin: 05/04/19 05:18 Dose: 40 mg Metoclopramide HCl (Reglan Oral Solution -) 5 mg PEG TIDAC [facility] Last Admin: 05/04/19 06:20 Dose: 5 mg Metoprolol Tartrate (Lopressor -) 50 mg PEG Q6HPO [facility] Last Admin: 05/04/19 05:18 Dose: 50 mg Metoprolol Tartrate (Lopressor Injection -) 5 mg IVPB Q4H PRN PRN Reason: HYPERTENSION Metoprolol Tartrate (Lopressor Injection -) 10 mg IVPB Q4H PRN PRN Reason: TACHYCARDIA Midodrine (Proamatine -) 2.5 mg PO BID-MID [facility] Last Admin: 05/04/19 10:25 Dose: 2.5 mg Miscellaneous (Duragesic Patch Waste) 1 each MC PRN PRN PRN Reason: PAIN Multivitamins/Minerals (Certavite-Antioxidant Liquid) 15 ml PEG DAILY [facility] Last Admin: 05/04/19 10:25 Dose: 15 ml Nystatin (Nystop Powder -) 1 applic TP TID [facility] Last Admin: 05/04/19 05:18 Dose: 1 applic Pantoprazole Sodium (Protonix Packets For Oral Suspension -) 40 mg NGT DAILY [facility] Last Admin: 05/04/19 10:24 Dose: 40 mg Sodium Bicarbonate (Sodium Bicarbonate -) 650 mg GT DAILY [facility] Last Admin: 05/04/19 10:24 Dose: 650 mg Sodium Chloride (Normal Saline For Inhalation -) 3 ml IH Q6H PRN PRN Reason: COUGH Last Admin: 05/03/19 20:05 Dose: 3 ml A/P Chronic Respiratory Failure UTI/Pneumonia/Sepsis Lactic Acidosis Atrial Flutter with RVR GI Bleed Anemia CAD s/p CABG COPD HTN Hyperlipidemia Ascites - completed antibiotics - f/u cultures - protonix - monitor H/H - rate control - enteral feeds as tolerated - DVT/GI prophylaxis
--- NOTE | 2019-05-04 12:31 | PN ---
Progress Note, Physician Chief Complaint: Acute on Chronic Respiratory Failure UTI Ascites History of Present Illness: mechanical vent H/H stable returned from EGD- source of bleeding still unidentifiable + melena/hematochezia Family frustrated of not being able to understand the source of emerging chronic and acute issues, mainly bleeding Has had bleeding from bladder in the past at [facility]-records reviewed Had rectal bleed in 04/2018, went to [facility] in [place], await records Awaiting records from [facility] and [facility] 04/22/18: Awake and alert Started on reglan SSRI discontinued due to interaction PEG residual 50 cc this AM 04/26/19 Vomited yesterday Tube feeds held GI aware Was on IV reglan, was dc'd? 05/04/19 Tolerating feedings Nephrostomy tubes dc'd Seen by Wound care Dr Grijalva- no additional interventions recommended Febrile overnight BC pending Daughter at bedside trial of PMV - Current Medication List Current Medications: Active Medications Acetaminophen (Tylenol Oral Solution -) 650 mg PO Q4H PRN PRN Reason: FEVER Last Admin: 05/03/19 21:22 Dose: 650 mg Acetylcysteine (Mucomyst 20 Oral / Inh Use Only*) 400 mg NEB RBID [facility] Last Admin: 05/04/19 08:44 Dose: 400 mg Albuterol Sulfate (Ventolin 0.083% Nebulizer Soln -) 1 amp NEB Q4H PRN PRN Reason: SHORT OF BREATH/WHEEZING Last Admin: 05/04/19 08:44 Dose: 1 amp Amino Acids (Prosource No Carb Liquid Pkt) 30 ml GT BID@0800,1730 [facility] Last Admin: 05/04/19 10:00 Dose: 30 ml Artificial Tears (Artificial Tears) 1 drop OU QID [facility] Last Admin: 05/04/19 10:26 Dose: 1 drop Ascorbic Acid (Vitamin C -) 500 mg GT BID [facility] Last Admin: 05/04/19 10:25 Dose: 500 mg Bacitracin (Bacitracin -) 1 applic TP BID [facility] Last Admin: 05/03/19 21:26 Dose: 1 applic Diltiazem HCl (Cardizem -) 30 mg PO Q6HPO [facility] Last Admin: 05/04/19 05:18 Dose: 30 mg Fentanyl (Duragesic 12mcg Patch -) 1 patch TD Q72H [facility] Stop: 05/09/19 13:58 Last Admin: 05/02/19 15:04 Dose: 1 patch Finasteride (Proscar -) 5 mg PO DAILY [facility] Last Admin: 05/04/19 10:25 Dose: 5 mg Furosemide (Lasix Oral Solution -) 40 mg GT BIDLASIX [facility] Last Admin: 05/04/19 05:18 Dose: 40 mg Metoclopramide HCl (Reglan Oral Solution -) 5 mg PEG TIDAC [facility] Last Admin: 05/04/19 06:20 Dose: 5 mg Metoprolol Tartrate (Lopressor -) 50 mg PEG Q6HPO [facility] Last Admin: 05/04/19 05:18 Dose: 50 mg Metoprolol Tartrate (Lopressor Injection -) 5 mg IVPB Q4H PRN PRN Reason: HYPERTENSION Metoprolol Tartrate (Lopressor Injection -) 10 mg IVPB Q4H PRN PRN Reason: TACHYCARDIA Midodrine (Proamatine -) 2.5 mg PO BID-MID [facility] Last Admin: 05/04/19 10:25 Dose: 2.5 mg Miscellaneous (Duragesic Patch Waste) 1 each MC PRN PRN PRN Reason: PAIN Multivitamins/Minerals (Certavite-Antioxidant Liquid) 15 ml PEG DAILY [facility] Last Admin: 05/04/19 10:25 Dose: 15 ml Nystatin (Nystop Powder -) 1 applic TP TID [facility] Last Admin: 05/04/19 05:18 Dose: 1 applic Pantoprazole Sodium (Protonix Packets For Oral Suspension -) 40 mg NGT DAILY [facility] Last Admin: 05/04/19 10:24 Dose: 40 mg Sodium Bicarbonate (Sodium Bicarbonate -) 650 mg GT DAILY [facility] Last Admin: 05/04/19 10:24 Dose: 650 mg Sodium Chloride (Normal Saline For Inhalation -) 3 ml IH Q6H PRN PRN Reason: COUGH Last Admin: 05/03/19 20:05 Dose: 3 ml - Objective Vital Signs: Vital Signs Temperature 98.5 F 05/04/19 10:00 Pulse Rate 98 H 05/04/19 10:00 Respiratory Rate 22 H 05/04/19 10:00 Blood Pressure 122/62 05/04/19 10:00 O2 Sat by Pulse Oximetry (%) 100 05/03/19 21:00 Constitutional: Yes: Well Nourished, No Distress, Calm Cardiovascular: Yes: Regular Rate and Rhythm Respiratory: Yes: Regular Gastrointestinal: Yes: Normal Bowel Sounds, Soft Genitourinary: Yes: Huber Present Musculoskeletal: Yes: Muscle Weakness Edema: Yes (generalized weeping edema) Peripheral Pulses WNL: Yes Neurological: Yes: Alert, Oriented Psychiatric: Yes: Alert, Oriented Labs: CBC, BMP 05/03/19 16:15 05/03/19 11:15 INR, PTT INR 1.43 (0.83-1.09) H 04/18/19 05:20 Fibrinogen 295.0 mg/dL (238-498) 04/16/19 05:30 Problem List - Problems (1) PÉREZ (acute kidney injury) Assessment/Plan: -Nephrology consult -monitor trend -Cr stable -Renal U/S reviewed -Furosemide as per renal Problems reviewed: Yes Code(s): N17.9 - ACUTE KIDNEY FAILURE, UNSPECIFIED (2) Vomiting Assessment/Plan: -resolved -Continue Reglan 10 mg AC -GI on board -abd xray reviewed -Tube feedings titrated up to goal rate of 45 cc/hr-tolerating well Problems reviewed: Yes Code(s): R11.10 - VOMITING, UNSPECIFIED (3) Nephrostomy status Assessment/Plan: -BL -Seen by Urology -nephrostomy tubes discontinued Problems reviewed: Yes Code(s): Z93.6 - OTHER ARTIFICIAL OPENINGS OF URINARY TRACT STATUS (4) Macular degeneration Assessment/Plan: -Opthalmology unable to evaluate pt in the hospital Problems reviewed: Yes Code(s): H35.30 - UNSPECIFIED MACULAR DEGENERATION (5) Decubitus ulcer of sacral region, stage 4 Assessment/Plan: -Wound care consult appreciated -Continue wet to dry dressings -Offloading -T&P Q2H Problems reviewed: Yes Code(s): L89.154 - PRESSURE ULCER OF SACRAL REGION, STAGE 4 Assessment/Plan (1) Acute and chronic respiratory failure Assessment/Plan: -Pulm on board -Mechanically Ventilated -keep SpO2 >90% -CXR shows cardiomegaly, left basilar compressive atelectasis, left pleural effusion, right pleural effusion-Repeat CXR minimal improvement in the left base. -Sputum Culture positive for MRSA -Encourage use of passy berta valve daily- has not been tolerating it -MBS when stable Code(s): J96.20 - ACUTE AND CHR RESP FAILURE, UNSP W HYPOXIA OR HYPERCAPNIA (2) Anemia Assessment/Plan: -Stable -monitor Hg weekly outpatient and transfuse for Hg <7.0 to avoid fluid overload -GI and Hematology on board Code(s): D64.9 - ANEMIA, UNSPECIFIED (3) Atrial flutter Assessment/Plan: -Metoprolol and Cardizem -Cardiology on board -Rate controlled now Code(s): I48.92 - UNSPECIFIED ATRIAL FLUTTER (4) COPD (chronic obstructive pulmonary disease) Assessment/Plan: -Pulm on board -Mechanically Ventilated -keep SpO2 >90% Code(s): J44.9 - CHRONIC OBSTRUCTIVE PULMONARY DISEASE, UNSPECIFIED (5) Diabetes mellitus Assessment/Plan: -BGM ACHS -ISS Code(s): E11.9 - TYPE 2 DIABETES MELLITUS WITHOUT COMPLICATIONS (6) GI bleed Assessment/Plan: -GI on board -Pantoprazole GT -EGD-unable to identify the source of bleeding -CT Abd/pelvis was negative for SBO Code(s): K92.2 - GASTROINTESTINAL HEMORRHAGE, UNSPECIFIED (7) HTN (hypertension) Assessment/Plan: -Metoprolol + Cardizem + Furosemide 40 bid+ Midodrine -Cardiology re-eval appreciated -Meds adjust as recommended by cardiology -monitor BP Code(s): I10 - ESSENTIAL (PRIMARY) HYPERTENSION (8) SBO (small bowel obstruction) Assessment/Plan: -CTAP shows no evidence of bowel obstruction -GI on board Code(s): K56.609 - UNSP INTESTNL OBST, UNSP TO PARTIAL VERSUS COMPLETE OBST (9) Ascites Assessment/Plan: -s/p paracentesis tis admission -Ascites Fluid specimen noted albumin 1.8 with elevated globulins, 2+ proteinuria, macrocytic anemia raise suspicion for hematologic malingnancy -Hematology on board -Furosemide 40 mg BID Code(s): R18.8 - OTHER ASCITES (10) Sepsis Assessment/Plan: -ID on board-requested to re-evaluate, recommended to monito off abx -Leukocytosis -febrile overnight -Sputum Culture positive for MRSA -Repeat BC pending -UC positive ESBL, Klebsiella -Completed course of Zosyn -Off IV abx Code(s): A41.9 - SEPSIS, UNSPECIFIED ORGANISM Assessment/Plan see problem list dvt ppx Spoke to daughter Beulah at bedside
[2019-05-04 13:31] LABS: EOS % 0.6 % (0-4.5); HEMATOCRIT 24.9 % (35.4-49); HEMOGLOBIN 8.1 GM/dL (11.7-16.9); LYMPH % 2.7 % (8-40); MCH 32.4 pg (25.7-33.7); MCHC 32.4 g/dl (32.0-35.9); MEAN PLT VOLUME 10.6 fl (7.5-11.1); MONO % 1.7 % (3.8-10.2); PLATELET COUNT 97 K/MM3 (134-434); RBC 2.49 M/mm3 (4.00-5.60); RDW 25.4 % (11.9-15.9); WHITE BLOOD COUNT 15.6 K/mm3 (4.0-10.0)
[2019-05-04 14:07] LABS: BILIRUBIN,TOTAL 0.5 mg/dL (0.2-1); BLOOD UREA NITROGEN 53.4 mg/dL (7-18); CALCIUM 7.1 mg/dL (8.5-10.1); CREATININE 1.6 mg/dL (0.55-1.3); MAGNESIUM 1.7 mg/dL (1.8-2.4); PHOSPHOROUS 2.5 mg/dL (2.5-4.9); POTASSIUM 4.2 mmol/L (3.5-5.1)
[2019-05-04 14:44] LABS: ANISOCYTOSIS 2+; MACROCYTOSIS 2+; PLATELET ESTIMATE NORMAL; TOXIC GRANULATION 1+
[2019-05-04] MEDS: BACITRACIN 15 GM TUBE TOPICAL OINTMENT TP SCH (15:00)
[2019-05-04] MEDS: ALBUTEROL SO4 0.083% IH SOL 2.5 MG/3 ML VIAL.NEB. NEB SCH (21:10)
[2019-05-04] MEDS: METOPROLOL TARTRATE 50 MG TABLET (FP) PO SCH (23:58)
[2019-05-05] MEDS: NYSTATIN POWDER 100,000 UNITS/GM - 15 GM TOPICAL POWDER TP SCH ×4 (00:02→23:45)
[2019-05-05] MEDS: ARTIFICIAL TEARS (POLYVINYL ALCOHOL) OPTH DROPS OU SCH ×5 (00:03→23:46)
[2019-05-05] MEDS: BACITRACIN 15 GM TUBE TOPICAL OINTMENT TP SCH ×3 (00:05→23:46)
[2019-05-05] MEDS: ALBUTEROL SO4 0.083% IH SOL 2.5 MG/3 ML VIAL.NEB. NEB SCH ×6 (00:10→20:29)
[2019-05-05] MEDS: FUROSEMIDE 40 MG/5 ML UNIT-DOSE CUP GT SCH ×2 (06:02→14:41)
[2019-05-05] MEDS: METOCLOPRAMIDE HCL 5 MG/5 ML UNIT DOSE CUP PEG SCH ×3 (06:02→17:13)
[2019-05-05] MEDS: ACETYLCYSTEINE 20% 200MG/ML 4 ML VIAL *FOR ORAL / INH USE ONLY NEB SCH ×2 (08:10→20:29)
[2019-05-05] MEDS: PANTOPRAZOLE SOD 40 MG SUSPENSION PACKET NGT SCH (09:52)
[2019-05-05] MEDS: AMINO ACIDS/PROTEIN HYDROLYS 30 ML LIQUID.PKT GT SCH ×2 (09:52→17:13)
[2019-05-05] MEDS: METOPROLOL TARTRATE 50 MG TABLET (FP) PO SCH ×2 (09:52→23:44)
[2019-05-05] MEDS: SODIUM BICARBONATE 650 MG TABLET GT SCH (09:52)
[2019-05-05] MEDS: MULTIVIT-MINERALS ORAL LIQUID PEG SCH (09:53)
[2019-05-05] MEDS: ASCORBIC ACID 500 MG TABLET (FP) GT SCH ×2 (09:53→23:44)
[2019-05-05] MEDS: FINASTERIDE 5 MG TABLET (FP) PO SCH (09:53)
[2019-05-05] MEDS: dilTIAZem HCL 60 MG TABLET (FP) PO SCH ×3 (09:53→23:47)
--- NOTE | 2019-05-05 12:07 | PN ---
Progress Note (short form) - Note Progress Note: PULMONARY Vented, awake. No fevers recorded. Vital Signs Period Temp Pulse Resp BP Sys/Kang Pulse Ox Last 24 Hr 97.4 F-99.3 F 97-100 20-31 120-154/70-111 96-99 Gen: vented, awake Heart: RRR Lung: decreased breath sounds at the bases Abd: soft, nontender Ext: + edema CBC, BMP 05/04/19 12:30 05/04/19 12:30 Active Medications Acetaminophen (Tylenol Oral Solution -) 650 mg PO Q4H PRN PRN Reason: FEVER Last Admin: 05/03/19 21:22 Dose: 650 mg Acetylcysteine (Mucomyst 20 Oral / Inh Use Only*) 400 mg NEB RBID [facility] Last Admin: 05/05/19 08:10 Dose: 400 mg Albuterol Sulfate (Ventolin 0.083% Nebulizer Soln -) 1 amp NEB RQ4H [facility] Last Admin: 05/05/19 08:10 Dose: 1 amp Amino Acids (Prosource No Carb Liquid Pkt) 30 ml GT BID@0800,1730 [facility] Last Admin: 05/05/19 09:52 Dose: 30 ml Artificial Tears (Artificial Tears) 1 drop OU QID [facility] Last Admin: 05/05/19 09:53 Dose: 1 drop Ascorbic Acid (Vitamin C -) 500 mg GT BID [facility] Last Admin: 05/05/19 09:53 Dose: 500 mg Bacitracin (Bacitracin -) 1 applic TP BID [facility] Last Admin: 05/05/19 00:05 Dose: 1 applic Diltiazem HCl (Cardizem -) 60 mg PO BID [facility] Last Admin: 05/05/19 09:53 Dose: 60 mg Fentanyl (Duragesic 12mcg Patch -) 1 patch TD Q72H [facility] Stop: 05/09/19 13:58 Last Admin: 05/02/19 15:04 Dose: 1 patch Finasteride (Proscar -) 5 mg PO DAILY [facility] Last Admin: 05/05/19 09:53 Dose: 5 mg Furosemide (Lasix Oral Solution -) 40 mg GT BIDLASIX [facility] Last Admin: 05/05/19 06:02 Dose: 40 mg Metoclopramide HCl (Reglan Oral Solution -) 5 mg PEG TIDAC [facility] Last Admin: 05/05/19 06:02 Dose: 5 mg Metoprolol Tartrate (Lopressor Injection -) 5 mg IVPB Q4H PRN PRN Reason: HYPERTENSION Metoprolol Tartrate (Lopressor Injection -) 10 mg IVPB Q4H PRN PRN Reason: TACHYCARDIA Metoprolol Tartrate (Lopressor -) 100 mg PO BID [facility] Last Admin: 05/05/19 09:52 Dose: 100 mg Miscellaneous (Duragesic Patch Waste) 1 each MC PRN PRN PRN Reason: PAIN Multivitamins/Minerals (Certavite-Antioxidant Liquid) 15 ml PEG DAILY [facility] Last Admin: 05/05/19 09:53 Dose: 15 ml Nystatin (Nystop Powder -) 1 applic TP TID [facility] Last Admin: 05/05/19 06:02 Dose: 1 applic Pantoprazole Sodium (Protonix Packets For Oral Suspension -) 40 mg NGT DAILY [facility] Last Admin: 05/05/19 09:52 Dose: 40 mg Sodium Bicarbonate (Sodium Bicarbonate -) 650 mg GT DAILY [facility] Last Admin: 05/05/19 09:52 Dose: 650 mg Sodium Chloride (Normal Saline For Inhalation -) 3 ml IH Q6H PRN PRN Reason: COUGH Last Admin: 05/03/19 20:05 Dose: 3 ml A/P Chronic Respiratory Failure UTI/Pneumonia/Sepsis Lactic Acidosis Atrial Flutter with RVR GI Bleed Anemia CAD s/p CABG COPD HTN Hyperlipidemia Ascites - completed antibiotics - protonix - monitor H/H - rate control - enteral feeds as tolerated - DVT/GI prophylaxis
[2019-05-05 12:29] LABS: PHOSPHOROUS 3.1 mg/dL (2.5-4.9)
[2019-05-05 13:11] LABS: EOS % 0.4 % (0-4.5); HEMATOCRIT 24.6 % (35.4-49); HEMOGLOBIN 7.8 GM/dL (11.7-16.9); LYMPH % 1.9 % (8-40); MCH 31.9 pg (25.7-33.7); MCHC 31.7 g/dl (32.0-35.9); MEAN CELL VOLUME 100.8 fl (80-96); MEAN PLT VOLUME 10.4 fl (7.5-11.1); MONO % 2.3 % (3.8-10.2); NEUT % 95.4 % (42.8-82.8); PLATELET COUNT 128 K/MM3 (134-434); RBC 2.44 M/mm3 (4.00-5.60); RDW 26.1 % (11.9-15.9); WHITE BLOOD COUNT 12.6 K/mm3 (4.0-10.0)
[2019-05-05] MEDS ORDERED: busPIRone HCL 5 MG TABLET PO PRN (13:22)
--- NOTE | 2019-05-05 13:34 | PN ---
Progress Note, Physician Chief Complaint: Acute on Chronic Respiratory Failure UTI Ascites History of Present Illness: mechanical vent H/H stable returned from EGD- source of bleeding still unidentifiable + melena/hematochezia Family frustrated of not being able to understand the source of emerging chronic and acute issues, mainly bleeding Has had bleeding from bladder in the past at [facility]-records reviewed Had rectal bleed in 04/2018, went to [facility] in [place], await records Awaiting records from [facility] and [facility] 04/22/18: Awake and alert Started on reglan SSRI discontinued due to interaction PEG residual 50 cc this AM 04/26/19 Vomited yesterday Tube feeds held GI aware Was on IV reglan, was dc'd? Tolerating feedings Nephrostomy tubes dc'd Seen by Wound care Dr Grijalva- no additional interventions recommended 05/05/19 afebrile overnight Repeat BC pending Failed PMV trial yesterday more alert and awake today - Current Medication List Current Medications: Active Medications Acetaminophen (Tylenol Oral Solution -) 650 mg PO Q4H PRN PRN Reason: FEVER Last Admin: 05/03/19 21:22 Dose: 650 mg Acetylcysteine (Mucomyst 20 Oral / Inh Use Only*) 400 mg NEB RBID [facility] Last Admin: 05/05/19 08:10 Dose: 400 mg Albuterol Sulfate (Ventolin 0.083% Nebulizer Soln -) 1 amp NEB RQ4H [facility] Last Admin: 05/05/19 11:00 Dose: 1 amp Amino Acids (Prosource No Carb Liquid Pkt) 30 ml GT BID@0800,1730 [facility] Last Admin: 05/05/19 09:52 Dose: 30 ml Artificial Tears (Artificial Tears) 1 drop OU QID [facility] Last Admin: 05/05/19 09:53 Dose: 1 drop Ascorbic Acid (Vitamin C -) 500 mg GT BID [facility] Last Admin: 05/05/19 09:53 Dose: 500 mg Bacitracin (Bacitracin -) 1 applic TP BID [facility] Last Admin: 05/05/19 13:15 Dose: 1 applic Buspirone HCl (Buspar -) 5 mg PO TID PRN PRN Reason: ANXIETY Diltiazem HCl (Cardizem -) 60 mg PO BID [facility] Last Admin: 05/05/19 09:53 Dose: 60 mg Fentanyl (Duragesic 12mcg Patch -) 1 patch TD Q72H [facility] Stop: 05/09/19 13:58 Last Admin: 05/02/19 15:04 Dose: 1 patch Finasteride (Proscar -) 5 mg PO DAILY [facility] Last Admin: 05/05/19 09:53 Dose: 5 mg Furosemide (Lasix Oral Solution -) 40 mg GT BIDLASIX [facility] Last Admin: 05/05/19 06:02 Dose: 40 mg Metoclopramide HCl (Reglan Oral Solution -) 5 mg PEG TIDAC [facility] Last Admin: 05/05/19 12:30 Dose: 5 mg Metoprolol Tartrate (Lopressor Injection -) 5 mg IVPB Q4H PRN PRN Reason: HYPERTENSION Metoprolol Tartrate (Lopressor Injection -) 10 mg IVPB Q4H PRN PRN Reason: TACHYCARDIA Metoprolol Tartrate (Lopressor -) 100 mg PO BID [facility] Last Admin: 05/05/19 09:52 Dose: 100 mg Miscellaneous (Duragesic Patch Waste) 1 each MC PRN PRN PRN Reason: PAIN Multivitamins/Minerals (Certavite-Antioxidant Liquid) 15 ml PEG DAILY [facility] Last Admin: 05/05/19 09:53 Dose: 15 ml Nystatin (Nystop Powder -) 1 applic TP TID [facility] Last Admin: 05/05/19 06:02 Dose: 1 applic Pantoprazole Sodium (Protonix Packets For Oral Suspension -) 40 mg NGT DAILY [facility] Last Admin: 05/05/19 09:52 Dose: 40 mg Sodium Bicarbonate (Sodium Bicarbonate -) 650 mg GT DAILY [facility] Last Admin: 05/05/19 09:52 Dose: 650 mg Sodium Chloride (Normal Saline For Inhalation -) 3 ml IH Q6H PRN PRN Reason: COUGH Last Admin: 05/03/19 20:05 Dose: 3 ml - Objective Vital Signs: Vital Signs Temperature 98.8 F 05/05/19 10:00 Pulse Rate 100 H 05/05/19 10:00 Respiratory Rate 28 H 05/05/19 10:00 Blood Pressure 120/70 05/05/19 10:00 O2 Sat by Pulse Oximetry (%) 99 05/05/19 09:00 Constitutional: Yes: Well Nourished, No Distress, Calm Cardiovascular: Yes: Pulse Irregular Respiratory: Yes: Mechanically Ventilated, Rhonchi (diffuse) Gastrointestinal: Yes: Normal Bowel Sounds, Soft, Abdomen, Obese Genitourinary: Yes: Huber Present Musculoskeletal: Yes: Muscle Weakness Edema: Yes (generalized edema) Peripheral Pulses WNL: Yes Neurological: Yes: Alert, Oriented Psychiatric: Yes: Alert, Oriented Labs: CBC, BMP 05/05/19 12:30 INR, PTT INR 1.43 (0.83-1.09) H 04/18/19 05:20 Fibrinogen 295.0 mg/dL (238-498) 04/16/19 05:30 Problem List - Problems (1) PÉREZ (acute kidney injury) Assessment/Plan: -Nephrology consult -monitor trend -Cr stable -Renal U/S reviewed -Furosemide as per renal Problems reviewed: Yes Code(s): N17.9 - ACUTE KIDNEY FAILURE, UNSPECIFIED (2) Vomiting Assessment/Plan: -resolved -Continue Reglan 10 mg AC -GI on board -abd xray reviewed -Tube feedings titrated up to goal rate of 45 cc/hr-tolerating well Problems reviewed: Yes Code(s): R11.10 - VOMITING, UNSPECIFIED (3) Nephrostomy status Assessment/Plan: -BL -Seen by Urology -nephrostomy tubes discontinued Problems reviewed: Yes Code(s): Z93.6 - OTHER ARTIFICIAL OPENINGS OF URINARY TRACT STATUS (4) Macular degeneration Assessment/Plan: -Opthalmology unable to evaluate pt in the hospital Problems reviewed: Yes Code(s): H35.30 - UNSPECIFIED MACULAR DEGENERATION (5) Decubitus ulcer of sacral region, stage 4 Assessment/Plan: -Wound care consult appreciated -Continue wet to dry dressings -Offloading -T&P Q2H Problems reviewed: Yes Code(s): L89.154 - PRESSURE ULCER OF SACRAL REGION, STAGE 4 Assessment/Plan (1) Acute and chronic respiratory failure Assessment/Plan: -Pulm on board -Mechanically Ventilated -keep SpO2 >90% -CXR shows cardiomegaly, left basilar compressive atelectasis, left pleural effusion, right pleural effusion-Repeat CXR minimal improvement in the left base. -Sputum Culture positive for MRSA -Encourage use of passy berta valve daily- has not been tolerating it -Not a good candidate for MBS Code(s): J96.20 - ACUTE AND CHR RESP FAILURE, UNSP W HYPOXIA OR HYPERCAPNIA (2) Anemia Assessment/Plan: -Stable -monitor Hg weekly outpatient and transfuse for Hg <7.0 to avoid fluid overload -GI and Hematology on board Code(s): D64.9 - ANEMIA, UNSPECIFIED (3) Atrial flutter Assessment/Plan: -Metoprolol and Cardizem -Cardiology on board -Rate controlled now Code(s): I48.92 - UNSPECIFIED ATRIAL FLUTTER (4) COPD (chronic obstructive pulmonary disease) Assessment/Plan: -Pulm on board -Mechanically Ventilated -keep SpO2 >90% Code(s): J44.9 - CHRONIC OBSTRUCTIVE PULMONARY DISEASE, UNSPECIFIED (5) Diabetes mellitus Assessment/Plan: -BGM ACHS -ISS Code(s): E11.9 - TYPE 2 DIABETES MELLITUS WITHOUT COMPLICATIONS (6) GI bleed Assessment/Plan: -GI on board -Pantoprazole GT -EGD-unable to identify the source of bleeding -CT Abd/pelvis was negative for SBO Code(s): K92.2 - GASTROINTESTINAL HEMORRHAGE, UNSPECIFIED (7) HTN (hypertension) Assessment/Plan: -Metoprolol + Cardizem + Furosemide adjusted-as per cardiology recommendation -Midodrine discontinued -Cardiology re-eval appreciated -Meds adjust as recommended by cardiology -monitor BP Code(s): I10 - ESSENTIAL (PRIMARY) HYPERTENSION (8) SBO (small bowel obstruction) Assessment/Plan: -CTAP shows no evidence of bowel obstruction -GI on board Code(s): K56.609 - UNSP INTESTNL OBST, UNSP TO PARTIAL VERSUS COMPLETE OBST (9) Ascites Assessment/Plan: -s/p paracentesis this admission -Ascites Fluid specimen noted albumin 1.8 with elevated globulins, 2+ proteinuria, macrocytic anemia raise suspicion for hematologic malingnancy -Hematology on board -Furosemide 40 mg BID-tolerating well with no rise in Cr Code(s): R18.8 - OTHER ASCITES (10) Sepsis Assessment/Plan: -ID on board-requested to re-evaluate, recommended to monito off abx -Leukocytosis -afebrile overnight -Sputum Culture positive for MRSA -Repeat BC pending -UC positive ESBL, Klebsiella -Completed course of Zosyn -Off IV abx Code(s): A41.9 - SEPSIS, UNSPECIFIED ORGANISM Assessment/Plan see problem list dvt ppx Spoke to daughter Beulah on the phone
[2019-05-05 13:41] LABS: BILIRUBIN,TOTAL 0.5 mg/dL (0.2-1); BLOOD UREA NITROGEN 55.5 mg/dL (7-18); CALCIUM 7.2 mg/dL (8.5-10.1); CREATININE 1.6 mg/dL (0.55-1.3); POTASSIUM 4.1 mmol/L (3.5-5.1); TOT PROT 6.1 g/dl (6.4-8.2)
[2019-05-05 13:57] LABS: ANISOCYTOSIS 2+; MACROCYTOSIS 1+; PLATELET ESTIMATE NORMAL
--- NOTE | 2019-05-05 14:07 | PN ---
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 Pt was very weak and did not reportedly tolerate it well, removed after 5 minutes. Peer nursing, pt is very weak, unable to tolerate patient care. Prognosis for improvement is guarded per medical team Suggest use PMV not as a rehabilitation tool but to provide ability to communicate as needed briefly with staff, family, palliative care, as tolerated. Consider reassessment by speech pathology, if and when indicated
[2019-05-05] MEDS: fentaNYL 12mcg/hr PATCH.TD72 TD SCH (14:38)
--- NOTE | 2019-05-05 15:20 | PN ---
Progress Note (short form) - Note Progress Note: Renal follow up for PÉREZ Seen and examined at the bedside awake and alert on vent via trach no overnight events Vital Signs Temperature 98.8 F 05/05/19 10:00 Pulse Rate 100 H 05/05/19 10:00 Respiratory Rate 28 H 05/05/19 10:00 Blood Pressure 120/70 05/05/19 10:00 O2 Sat by Pulse Oximetry (%) 99 05/05/19 09:00 Intake & Output 05/02/19 05/03/19 05/04/19 05/05/19 23:59 23:59 23:59 23:59 Intake Total 1200 1160 860 Output Total 1999 1900 2700 300 Balance -800 -740 -1840 -300 NAD awake and alert neck supple RRR CTA soft NT/ND + upper and lower extremity edema CBC, BMP 05/05/19 12:30 05/05/19 12:30 Current Medications Acetaminophen (Tylenol Oral Solution -) 650 mg PO Q4H PRN PRN Reason: FEVER Last Admin: 05/03/19 21:22 Dose: 650 mg Acetylcysteine (Mucomyst 20 Oral / Inh Use Only*) 400 mg NEB RBID [facility] Last Admin: 05/05/19 08:10 Dose: 400 mg Albuterol Sulfate (Ventolin 0.083% Nebulizer Soln -) 1 amp NEB RQ4H [facility] Last Admin: 05/05/19 11:00 Dose: 1 amp Amino Acids (Prosource No Carb Liquid Pkt) 30 ml GT BID@0800,1730 [facility] Last Admin: 05/05/19 09:52 Dose: 30 ml Artificial Tears (Artificial Tears) 1 drop OU QID [facility] Last Admin: 05/05/19 14:41 Dose: 1 drop Ascorbic Acid (Vitamin C -) 500 mg GT BID [facility] Last Admin: 05/05/19 09:53 Dose: 500 mg Bacitracin (Bacitracin -) 1 applic TP BID [facility] Last Admin: 05/05/19 13:15 Dose: 1 applic Buspirone HCl (Buspar -) 5 mg PO TID PRN PRN Reason: ANXIETY Diltiazem HCl (Cardizem -) 60 mg PO BID [facility] Last Admin: 05/05/19 09:53 Dose: 60 mg Fentanyl (Duragesic 12mcg Patch -) 1 patch TD Q72H [facility] Stop: 05/09/19 13:58 Last Admin: 05/05/19 14:38 Dose: 1 patch Finasteride (Proscar -) 5 mg PO DAILY [facility] Last Admin: 05/05/19 09:53 Dose: 5 mg Furosemide (Lasix Oral Solution -) 40 mg GT BIDLASIX [facility] Last Admin: 05/05/19 14:41 Dose: 40 mg Metoclopramide HCl (Reglan Oral Solution -) 5 mg PEG TIDAC [facility] Last Admin: 05/05/19 12:30 Dose: 5 mg Metoprolol Tartrate (Lopressor Injection -) 5 mg IVPB Q4H PRN PRN Reason: HYPERTENSION Metoprolol Tartrate (Lopressor Injection -) 10 mg IVPB Q4H PRN PRN Reason: TACHYCARDIA Metoprolol Tartrate (Lopressor -) 100 mg PO BID [facility] Last Admin: 05/05/19 09:52 Dose: 100 mg Miscellaneous (Duragesic Patch Waste) 1 each MC PRN PRN PRN Reason: PAIN Last Admin: 05/05/19 14:57 Dose: 1 each Multivitamins/Minerals (Certavite-Antioxidant Liquid) 15 ml PEG DAILY [facility] Last Admin: 05/05/19 09:53 Dose: 15 ml Nystatin (Nystop Powder -) 1 applic TP TID [facility] Last Admin: 05/05/19 14:41 Dose: 1 applic Pantoprazole Sodium (Protonix Packets For Oral Suspension -) 40 mg NGT DAILY [facility] Last Admin: 05/05/19 09:52 Dose: 40 mg Sodium Bicarbonate (Sodium Bicarbonate -) 650 mg GT DAILY [facility] Last Admin: 05/05/19 09:52 Dose: 650 mg Sodium Chloride (Normal Saline For Inhalation -) 3 ml IH Q6H PRN PRN Reason: COUGH Last Admin: 05/03/19 20:05 Dose: 3 ml 83 year old gentleman with history of respiratory failure on vent via trach, prostate cancer s/p radiation therapy, CAD s/p CABG, hypertension, DM who presented from [place] with coffee ground emesis who has developed acute kidney injury during the hospital admission. 1. Acute kidney injury secondary to pre-renal injury vs. contrast nephropathy 2. Hypernatremia 3. Acute on chronic anemia with suspected GI bleed 4. Chronic respiratory failure on vent 5. Leukocytoiss 6. BPH/Prostate cancer 7. Mild hyperkalemia likely secondary to potassium/phos supplementation Renal function stable Continue Lasix 40mg PO BID for now for fluid management Making urine via bryant continue proscar continue vent support Thank you Andrew Finney DO
[2019-05-06] MEDS: ALBUTEROL SO4 0.083% IH SOL 2.5 MG/3 ML VIAL.NEB. NEB SCH ×5 (00:19→15:51)
[2019-05-06 06:22] VITALS: TEMP 98.5
[2019-05-06] MEDS: METOCLOPRAMIDE HCL 5 MG/5 ML UNIT DOSE CUP PEG SCH ×2 (07:04→10:39)
[2019-05-06] MEDS: FUROSEMIDE 40 MG/5 ML UNIT-DOSE CUP GT SCH ×2 (07:06→15:04)
[2019-05-06] MEDS: NYSTATIN POWDER 100,000 UNITS/GM - 15 GM TOPICAL POWDER TP SCH ×2 (07:06→15:05)
[2019-05-06] MEDS: ACETYLCYSTEINE 20% 200MG/ML 4 ML VIAL *FOR ORAL / INH USE ONLY NEB SCH (08:00)
[2019-05-06] MEDS: AMINO ACIDS/PROTEIN HYDROLYS 30 ML LIQUID.PKT GT SCH (09:48)
[2019-05-06] MEDS: FINASTERIDE 5 MG TABLET (FP) PO SCH (10:40)
[2019-05-06] MEDS: METOPROLOL TARTRATE 50 MG TABLET (FP) PO SCH (10:40)
[2019-05-06] MEDS: SODIUM BICARBONATE 650 MG TABLET GT SCH (10:41)
[2019-05-06] MEDS: ASCORBIC ACID 500 MG TABLET (FP) GT SCH (10:41)
--- NOTE | 2019-05-06 10:41 | PN ---
Progress Note (short form) - Note Progress Note: PULMONARY Vented, awake. No fevers recorded. Vital Signs Period Temp Pulse Resp BP Sys/Kang Pulse Ox Last 24 Hr 97.5 F-98.8 F 75-130 20-35 106-180/57-100 99 Gen: vented, awake Heart: RRR Lung: decreased breath sounds at the bases Abd: soft, nontender Ext: + edema CBC, BMP 05/05/19 12:30 05/05/19 12:30 Active Medications Acetaminophen (Tylenol Oral Solution -) 650 mg PO Q4H PRN PRN Reason: FEVER Last Admin: 05/03/19 21:22 Dose: 650 mg Acetylcysteine (Mucomyst 20 Oral / Inh Use Only*) 400 mg NEB RBID [facility] Last Admin: 05/06/19 08:00 Dose: 400 mg Albuterol Sulfate (Ventolin 0.083% Nebulizer Soln -) 1 amp NEB RQ4H [facility] Last Admin: 05/06/19 08:00 Dose: 1 amp Amino Acids (Prosource No Carb Liquid Pkt) 30 ml GT BID@0800,1730 [facility] Last Admin: 05/06/19 09:48 Dose: 30 ml Artificial Tears (Artificial Tears) 1 drop OU QID [facility] Last Admin: 05/05/19 23:46 Dose: 1 drop Ascorbic Acid (Vitamin C -) 500 mg GT BID [facility] Last Admin: 05/05/19 23:44 Dose: 500 mg Bacitracin (Bacitracin -) 1 applic TP BID [facility] Last Admin: 05/05/19 23:46 Dose: 1 applic Buspirone HCl (Buspar -) 5 mg PO TID PRN PRN Reason: ANXIETY Diltiazem HCl (Cardizem -) 60 mg PO BID [facility] Last Admin: 05/05/19 23:47 Dose: 60 mg Fentanyl (Duragesic 12mcg Patch -) 1 patch TD Q72H [facility] Stop: 05/09/19 13:58 Last Admin: 05/05/19 14:38 Dose: 1 patch Finasteride (Proscar -) 5 mg PO DAILY [facility] Last Admin: 05/05/19 09:53 Dose: 5 mg Furosemide (Lasix Oral Solution -) 40 mg GT BIDLASIX [facility] Last Admin: 05/06/19 07:06 Dose: 40 mg Metoclopramide HCl (Reglan Oral Solution -) 5 mg PEG TIDAC [facility] Last Admin: 05/06/19 07:04 Dose: 5 mg Metoprolol Tartrate (Lopressor Injection -) 5 mg IVPB Q4H PRN PRN Reason: HYPERTENSION Metoprolol Tartrate (Lopressor Injection -) 10 mg IVPB Q4H PRN PRN Reason: TACHYCARDIA Metoprolol Tartrate (Lopressor -) 100 mg PO BID [facility] Last Admin: 05/05/19 23:44 Dose: 100 mg Miscellaneous (Duragesic Patch Waste) 1 each MC PRN PRN PRN Reason: PAIN Last Admin: 05/05/19 14:57 Dose: 1 each Multivitamins/Minerals (Certavite-Antioxidant Liquid) 15 ml PEG DAILY [facility] Last Admin: 05/05/19 09:53 Dose: 15 ml Nystatin (Nystop Powder -) 1 applic TP TID [facility] Last Admin: 05/06/19 07:06 Dose: 1 applic Pantoprazole Sodium (Protonix Packets For Oral Suspension -) 40 mg NGT DAILY [facility] Last Admin: 05/05/19 09:52 Dose: 40 mg Sodium Bicarbonate (Sodium Bicarbonate -) 650 mg GT DAILY [facility] Last Admin: 05/05/19 09:52 Dose: 650 mg Sodium Chloride (Normal Saline For Inhalation -) 3 ml IH Q6H PRN PRN Reason: COUGH Last Admin: 05/03/19 20:05 Dose: 3 ml A/P Chronic Respiratory Failure UTI/Pneumonia/Sepsis Lactic Acidosis Atrial Flutter with RVR GI Bleed Anemia CAD s/p CABG COPD HTN Hyperlipidemia Ascites - completed antibiotics - protonix - monitor H/H - rate control - enteral feeds as tolerated - DVT/GI prophylaxis
[2019-05-06] MEDS: PANTOPRAZOLE SOD 40 MG SUSPENSION PACKET NGT SCH (10:42)
[2019-05-06] MEDS: dilTIAZem HCL 60 MG TABLET (FP) PO SCH (10:43)
[2019-05-06] MEDS: ARTIFICIAL TEARS (POLYVINYL ALCOHOL) OPTH DROPS OU SCH ×2 (10:44→15:05)
[2019-05-06] MEDS: MULTIVIT-MINERALS ORAL LIQUID PEG SCH (10:44)
[2019-05-06] MEDS: BACITRACIN 15 GM TUBE TOPICAL OINTMENT TP SCH (10:45)
[2019-05-06] MEDS ORDERED: PT OWN MED DRAWER 7, Y5N ONE ×2 (11:26→14:16)
--- NOTE | 2019-05-06 14:21 | DS ---
Physical Examination Vital Signs: Vital Signs Temperature 98.5 F 05/06/19 10:00 Pulse Rate 116 H 05/06/19 10:00 Respiratory Rate 25 H 05/06/19 12:00 Blood Pressure 145/61 05/06/19 10:00 O2 Sat by Pulse Oximetry (%) 100 05/06/19 09:00 Constitutional: Yes: Well Nourished, No Distress, Calm Cardiovascular: Yes: Regular Rate and Rhythm Respiratory: Yes: Regular, Mechanically Ventilated Gastrointestinal: Yes: Normal Bowel Sounds, Soft Renal/: Yes: Huber Present Musculoskeletal: Yes: Muscle Weakness Extremities: Yes: Other (generalized atrophy) Edema: Yes (generalized edema) Peripheral Pulses WNL: Yes Integumentary: Yes: Pressure Ulcer Wound/Incision: Yes: Dressing Dry and Intact Neurological: Yes: Alert, Oriented Psychiatric: Yes: Alert, Oriented Labs: CBC, BMP 05/05/19 12:30 05/05/19 12:30 Discharge Summary Problems reviewed: Yes Reason For Visit: URINARY TRACT INFECTION, GENERALIZES EDEMA, UPPER Current Active Problems PÉREZ (acute kidney injury) (Acute) Acute and chronic respiratory failure (Acute) Anemia (Acute) Ascites (Acute) Atrial flutter (Acute) COPD (chronic obstructive pulmonary disease) (Acute) Coffee ground emesis (Acute) Constipation (Acute) Decubitus ulcer of sacral region, stage 4 (Acute) Diabetes mellitus (Acute) ESRD (end stage renal disease) (Acute) GI bleed (Acute) HLD (hyperlipidemia) (Acute) HTN (hypertension) (Acute) Hydronephrosis (Acute) Macular degeneration (Acute) Melena (Acute) Nephrostomy status (Acute) SBO (small bowel obstruction) (Acute) Sepsis (Acute) Status post tracheostomy (Acute) UTI (urinary tract infection) (Acute) Vomiting (Acute) Goals: (1) PÉREZ (acute kidney injury) Assessment/Plan: -Nephrology consult -monitor trend -Cr stable -Renal U/S reviewed -Furosemide as per renal Problems reviewed: Yes Code(s): N17.9 - ACUTE KIDNEY FAILURE, UNSPECIFIED (2) Vomiting Assessment/Plan: -resolved -Continue Reglan 10 mg AC -GI on board -abd xray reviewed -Tube feedings titrated up to goal rate of 45 cc/hr-tolerating well Problems reviewed: Yes Code(s): R11.10 - VOMITING, UNSPECIFIED (3) Nephrostomy status Assessment/Plan: -BL -Seen by Urology -nephrostomy tubes discontinued Problems reviewed: Yes Code(s): Z93.6 - OTHER ARTIFICIAL OPENINGS OF URINARY TRACT STATUS (4) Macular degeneration Assessment/Plan: -Opthalmology unable to evaluate pt in the hospital Problems reviewed: Yes Code(s): H35.30 - UNSPECIFIED MACULAR DEGENERATION (5) Decubitus ulcer of sacral region, stage 4 Assessment/Plan: -Wound care consult appreciated -Continue wet to dry dressings -Offloading -T&P Q2H Problems reviewed: Yes Code(s): L89.154 - PRESSURE ULCER OF SACRAL REGION, STAGE 4 Assessment/Plan (1) Acute and chronic respiratory failure Assessment/Plan: -Pulm on board -Mechanically Ventilated -keep SpO2 >90% -CXR shows cardiomegaly, left basilar compressive atelectasis, left pleural effusion, right pleural effusion-Repeat CXR minimal improvement in the left base. -Sputum Culture positive for MRSA -Encourage use of passy berta valve daily during family visitation to encourage strengthening of vocal cords for possible future MBS -Not a good candidate for MBS at this time Code(s): J96.20 - ACUTE AND CHR RESP FAILURE, UNSP W HYPOXIA OR HYPERCAPNIA (2) Anemia Assessment/Plan: -Stable -monitor Hg weekly outpatient and transfuse for Hg <7.0 to avoid fluid overload -GI and Hematology on board Code(s): D64.9 - ANEMIA, UNSPECIFIED (3) Atrial flutter Assessment/Plan: -Metoprolol and Cardizem -Cardiology on board -Rate controlled now Code(s): I48.92 - UNSPECIFIED ATRIAL FLUTTER (4) COPD (chronic obstructive pulmonary disease) Assessment/Plan: -Pulm on board -Mechanically Ventilated -keep SpO2 >90% Code(s): J44.9 - CHRONIC OBSTRUCTIVE PULMONARY DISEASE, UNSPECIFIED (5) Diabetes mellitus Assessment/Plan: -BGM ACHS -ISS Code(s): E11.9 - TYPE 2 DIABETES MELLITUS WITHOUT COMPLICATIONS (6) GI bleed Assessment/Plan: -GI on board -Pantoprazole GT -EGD-unable to identify the source of bleeding -CT Abd/pelvis was negative for SBO Code(s): K92.2 - GASTROINTESTINAL HEMORRHAGE, UNSPECIFIED (7) HTN (hypertension) Assessment/Plan: -Metoprolol + Cardizem + Furosemide adjusted-as per cardiology recommendation -Midodrine discontinued -Cardiology re-eval appreciated -Meds adjust as recommended by cardiology -monitor BP Code(s): I10 - ESSENTIAL (PRIMARY) HYPERTENSION (8) SBO (small bowel obstruction) Assessment/Plan: -CTAP shows no evidence of bowel obstruction -GI on board Code(s): K56.609 - UNSP INTESTNL OBST, UNSP TO PARTIAL VERSUS COMPLETE OBST (9) Ascites Assessment/Plan: -s/p paracentesis this admission -Ascites Fluid specimen noted albumin 1.8 with elevated globulins, 2+ proteinuria, macrocytic anemia raise suspicion for hematologic malingnancy -Hematology on board -Furosemide 40 mg BID-tolerating well with no rise in Cr Code(s): R18.8 - OTHER ASCITES (10) Sepsis Assessment/Plan: -ID on board-requested to re-evaluate, recommended to monito off abx -Leukocytosis -afebrile overnight -Sputum Culture positive for MRSA -Repeat BC pending -UC positive ESBL, Klebsiella -Completed course of Zosyn -Off IV abx Condition: Stable - Instructions Diet, Activity, Other Instructions: -Monitor weekly CBC/CMP -PMV use daily , especially during family visitation -Physical therapy for ROM -Wound care-wet to dry dressing, offloading, T&P Q2H either to left or right side, absolutely no lying on the back+ AIR MATTRESS- as per wound care recommendation Referrals: Dread Lima MD [Primary Care Provider] - [facility]: [facility] - Home Medications Comprehensive Discharge Medication List: Ambulatory Orders Finasteride 5 mg PO DAILY 03/31/19 Latanoprost/Pf [Latanoprost 0.005% Eye Drop] 7.5 ml OP ONCE 03/31/19 Bimatoprost [Lumigan] 1 drop OU DAILY 04/26/19 Acetaminophen Oral Solution [Tylenol Oral Solution -] 650 mg PO Q4H PRN soln.oral 05/06/19 Acetylcysteine Po/INH 20% [Mucomyst 20 Oral / INH Use Only*] 400 mg NEB RBID vial 05/06/19 Albuterol 0.083% Nebulizer Jossie [Ventolin 0.083% Nebulizer Soln -] 1 amp NEB RQ4H amp 05/06/19 Amino Acids/Protein Hydrolys [Prosource No Carb Liquid Pkt] 30 ml GT BID@0800, 1730 packet 05/06/19 Ascorbic Acid [Vitamin C -] 500 mg GT BID tablet 05/06/19 Bacitracin - [Bacitracin Topical Ointment -] 1 applic TP BID tube 05/06/19 Buspirone HCl [Buspar -] 5 mg PO TID PRN tablet 05/06/19 Diltiazem [Cardizem -] 60 mg PO BID tablet 05/06/19 FENTANYL 12mcg PATCH [DURAGESIC 12mcg PATCH -] 1 patch TD Q72H #0 patch.td72 MDD 1 05/06/19 Fentanyl Patch Waste [Duragesic Patch Waste] 1 each MC PRN PRN each 05/06/19 Finasteride [Proscar -] 5 mg PO DAILY tablet 05/06/19 Furosemide Oral Solution [Lasix Oral Solution -] 40 mg GT BIDLASIX udc Metoclopramide Oral Soln [Reglan Oral Solution -] 5 mg PEG TIDAC udc 05/06/19 Metoprolol Tartrate [Lopressor -] 100 mg PO BID tablet 05/06/19 Multivit-Minerals [Certavite-Antioxidant Liquid] 15 ml PEG DAILY cup 05/06/19 Nystatin Powder [Nystop Powder -] 1 applic TP TID applic 05/06/19 Pantoprazole Suspension [Protonix Packets For Oral Suspension -] 40 mg NGT DAILY packet 05/06/19 Polyvinyl Alcohol [Artificial Tears] 1 drop OU QID drops 05/06/19 Sodium Bicarbonate - 650 mg GT DAILY tablet 05/06/19 Sodium Chloride Inhalation [Normal Saline For Inhalation -] 3 ml IH Q6H PRN vial.neb 05/06/19
[2019-05-06 15:46] LABS: BASO % 0.1 % (0-2.0); EOS % 1.5 % (0-4.5); HEMATOCRIT 24.2 % (35.4-49); HEMOGLOBIN 7.8 GM/dL (11.7-16.9); LYMPH % 3.5 % (8-40); MCH 32.5 pg (25.7-33.7); MCHC 32.3 g/dl (32.0-35.9); MEAN CELL VOLUME 100.7 fl (80-96); MEAN PLT VOLUME 9.8 fl (7.5-11.1); MONO % 3.6 % (3.8-10.2); NEUT % 91.3 % (42.8-82.8); PLATELET COUNT 149 K/MM3 (134-434); RDW 25.6 % (11.9-15.9); WHITE BLOOD COUNT 10.4 K/mm3 (4.0-10.0)
[2019-05-06 15:47] VITALS: BP 126/78; PULSE 99
[2019-05-06 16:36] LABS: ANISOCYTOSIS 2+; MACROCYTOSIS 1+; OVALOCYTE 1+
[2019-05-06 16:39] LABS: BILIRUBIN,TOTAL 0.6 mg/dL (0.2-1); BLOOD UREA NITROGEN 56.5 mg/dL (7-18); CALCIUM 7.4 mg/dL (8.5-10.1); CREATININE 1.5 mg/dL (0.55-1.3); POTASSIUM 4.2 mmol/L (3.5-5.1); TOT PROT 6.3 g/dl (6.4-8.2)
[2019-05-06 17:05] LABS: PLATELET ESTIMATE NORMAL
== END 2019-05-06 16:45 | DRG 870 ==
LOC: JER 21:35 → JERBED 03-31 02:26 → JICU 03-31 20:42 → J5S 04-02 00:57 → JICU 04-13 11:00 → J5S 04-20 21:20
PROVIDERS: ADMIT Internal Medicine; ATTEND Family Medicine
PROC: 5A1955Z Respiratory Ventilation, Greater than 96 Consecutive Hours (ICD-10-PCS; principal; 2019-03-31)
PROC: 30233N1 Transfusion of Nonautologous Red Blood Cells into Peripheral Vein, Percutaneous Approach (ICD-10-PCS; 2019-03-31)
PROC: 0W9G3ZX Drainage of Peritoneal Cavity, Percutaneous Approach, Diagnostic (ICD-10-PCS; 2019-04-02)
PROC: 30233L1 Transfusion of Nonautologous Fresh Plasma into Peripheral Vein, Percutaneous Approach (ICD-10-PCS; 2019-04-14)
PROC: 30233K1 Transfusion of Nonautologous Frozen Plasma into Peripheral Vein, Percutaneous Approach (ICD-10-PCS; 2019-04-14)
PROC: 0W3P8ZZ Control Bleeding in Gastrointestinal Tract, Via Natural or Artificial Opening Endoscopic (ICD-10-PCS; 2019-04-15)
PROC: 3E0G8GC Introduction of Other Therapeutic Substance into Upper GI, Via Natural or Artificial Opening Endoscopic (ICD-10-PCS; 2019-04-15)
PROC: 05HN33Z Insertion of Infusion Device into Left Internal Jugular Vein, Percutaneous Approach (ICD-10-PCS; 2019-04-16)
PROC: 0DJ08ZZ Inspection of Upper Intestinal Tract, Via Natural or Artificial Opening Endoscopic (ICD-10-PCS; 2019-04-16)
DX: A41.9 Sepsis, unspecified organism (principal); L89.154 Pressure ulcer of sacral region, stage 4; K31.82 Dieulafoy lesion (hemorrhagic) of stomach and duodenum; G82.50 Quadriplegia, unspecified; J96.20 Acute and chronic respiratory failure, unspecified whether with hypoxia or hypercapnia; J69.0 Pneumonitis due to inhalation of food and vomit; N18.6 End stage renal disease; R18.8 Other ascites; D62 Acute posthemorrhagic anemia; I48.92 Unspecified atrial flutter; N17.9 Acute kidney failure, unspecified; E87.0 Hyperosmolality and hypernatremia; N39.0 Urinary tract infection, site not specified; N13.30 Unspecified hydronephrosis; E87.2 Acidosis; J98.11 Atelectasis; I12.0 Hypertensive chronic kidney disease with stage 5 chronic kidney disease or end stage renal disease; Z93.0 Tracheostomy status; K59.00 Constipation, unspecified; E78.5 Hyperlipidemia, unspecified; H35.30 Unspecified macular degeneration; J44.9 Chronic obstructive pulmonary disease, unspecified; I25.10 Atherosclerotic heart disease of native coronary artery without angina pectoris; Z95.1 Presence of aortocoronary bypass graft; D72.829 Elevated white blood cell count, unspecified; N40.0 Benign prostatic hyperplasia without lower urinary tract symptoms; E87.5 Hyperkalemia; E66.9 Obesity, unspecified; Z68.32 Body mass index [BMI] 32.0-32.9, adult; R00.0 Tachycardia, unspecified; E11.22 Type 2 diabetes mellitus with diabetic chronic kidney disease
CPT/HCPCS: 36415; 36430; 36511; 50431; 71045-TC-FY; 71250-TC; 74018-TC-FY; 74174-TC; 74176-TC; 74425-TC-FY; 76700-TC; 76705-TC; 76775-TC; 76942-TC; 80048; 80053; 80074; 81003; 82042; 82150; 82272; 82330; 82465; 82550; 82565; 82570; 82728; 82784; 82945; 82962; 83036; 83540; 83550; 83605; 83615; 83735; 83986; 84100; 84155; 84156; 84157; 84165; 84300; 84478; 84484; 85025; 85027; 85044; 85362; 85384; 85610; 85730; 86334; 86850; 86900; 86901; 86922; 87040; 87070; 87075; 87086; 87102; 87116; 87186; 87205; 87206; 87210; 87324; 87449; 88108; 88305-TC; 93005; 93010; 93306-TC; 94002; 94640; 99285-25; G0480; J7030; P9016; P9017; P9021; P9038; P9058; Q9967

== ENCOUNTER 2019-05-08 16:56 | Inpatient (IN) | payer OTHER, MEDICARE ==
--- NOTE | 2019-05-08 17:34 | PDOC ---
History of Present Illness - General Chief Complaint: Respiratory Stated Complaint: FEVER Time Seen by Provider: 05/08/19 17:10 - History of Present Illness Initial Comments: 05/08/19 19:04 83 y/o M hx of CABG, HTN, HLD, ESRD s/p Nephrostomy Tubes, COPD s/p Trach/Vent Dependent, Pneumonia, PEG-tube.sacral decubitus ulcers. He was recently admitted to ICU at this hospital for sepsis (MRSA + Klebsiella ESBL)and GI bleeding. He presents today from [facility] brought in by EMS for sinus tachycardia at the facility. hx ltd per EMS and patient unable to contribute as he has a trach. No fevers or respiratory distress noted. Past History - Past Medical History Allergies/Adverse Reactions: Allergies Allergy/AdvReac Type Severity Reaction Status Date / Time chlorhexidine Allergy Verified 05/17/19 22:30 Home Medications: Ambulatory Orders Finasteride 5 mg GT DAILY 03/31/19 Latanoprost/Pf [Latanoprost 0.005% Eye Drop] 1 drop OP HS 03/31/19 Bimatoprost [Lumigan] 1 drop OU DAILY 04/26/19 Acetylcysteine Po/INH 20% [Mucomyst 20 Oral / INH Use Only*] 400 mg NEB RBID vial 05/06/19 Albuterol 0.083% Nebulizer Jossie [Ventolin 0.083% Nebulizer Soln -] 1 amp NEB RQ4H amp 05/06/19 Amino Acids/Protein Hydrolys [Prosource No Carb Liquid Pkt] 30 ml GT BID@0800, 1730 packet 05/06/19 Ascorbic Acid [Vitamin C -] 500 mg GT BID tablet 05/06/19 Bacitracin - [Bacitracin Topical Ointment -] 1 applic TP BID tube 05/06/19 Buspirone HCl [Buspar -] 5 mg PO TID PRN tablet 05/06/19 Diltiazem [Cardizem -] 60 mg PO BID tablet 05/06/19 FENTANYL 12mcg PATCH [DURAGESIC 12mcg PATCH -] 1 patch TD Q72H #0 patch.td72 MDD 1 05/06/19 Fentanyl Patch Waste [Duragesic Patch Waste] 1 each MC PRN PRN each 05/06/19 Metoclopramide Oral Soln [Reglan Oral Solution -] 5 mg PEG TIDAC udc 01/16/20 Metoprolol Tartrate [Lopressor -] 100 mg PO BID tablet 05/06/19 Multivit-Minerals [Certavite-Antioxidant Liquid] 15 ml PEG DAILY cup 05/06/19 Nystatin Powder [Nystop Powder -] 1 applic TP TID applic 05/06/19 Pantoprazole Suspension [Protonix Packets For Oral Suspension -] 40 mg NGT DAILY packet 05/06/19 Polyvinyl Alcohol [Artificial Tears] 1 drop OU QID drops 05/06/19 Sodium Bicarbonate - 650 mg GT DAILY tablet 05/06/19 Sodium Chloride Inhalation [Normal Saline For Inhalation -] 3 ml IH Q6H PRN vial.neb 05/06/19 Aa/Hydrolyzed Collagen, Whey [Lps 15-30 Liquid] 30 ml GT BID 05/08/19 Acetaminophen Oral Solution [Tylenol Oral Solution -] 650 mg GT Q4H PRN Oxycodone HCl 5 mg GT DAILY 05/08/19 Acetylcysteine Po/INH 20% [Mucomyst 20 Oral / INH Use Only*] 400 mg NEB RBID vial 05/13/19 Amox-Tr/K Cl [Augmentin 500-125mg Tablet -] 1 tab PO BID #14 tab 05/13/19 Furosemide Oral Solution [Lasix Oral Solution -] 40 mg GT BID@0600,1400 [facility] Heparin - 5,000 unit SQ BID vial 05/13/19 Levalbuterol HCl [Xopenex] 0.31 mg IH Q8H PRN vial.[facility] 05/13/19 Mupirocin Ointment [Bactroban Ointment (For Decolonization) -] 1 applic NS BID applic 05/13/19 Verapamil HCl [Calan -] 80 mg PEG TID tablet 05/13/19 Anemia: Yes COPD: Yes (trach) Diabetes: Yes HTN: Yes Hypercholesterolemia: Yes Psychiatric Problems: Yes - Surgical History Cardiac Surgery: Yes (CABG) - Psycho Social/Smoking Cessation Hx Smoking History: Unknown if ever smoked Have you smoked in the past 12 months: No Hx Alcohol Use: No Review of Systems - Review of Systems Able to Perform ROS?: No (pt. trached) *Physical Exam - Physical Exam 05/08/19 19:11 GENERAL: Awake and alert. generalized edema (anasarca) HEAD: No signs of trauma, normocephalic, atraumatic EYES: PERRLA, EOMI, sclera anicteric, conjunctiva clear ENT: Auricles normal inspection, hearing grossly normal, nares patent, oropharynx clear without exudates. Moist mucosa NECK: trach attached to vent. LUNGS: No distress. pt on A/C mode of ventilator. rhonchi on lung exam bilaterally. HEART: tachycardic ,normal S1 and S2, no murmurs, rubs or gallops, 1+ peripheral pedal pulses bilaterally. ABDOMEN: distended abdomen, with peg-tube in place. BS+ in all four quadrants. edematous to abdomen. EXTREMITIES : extensive bilateral upper extremity echymoses and friable skin. 2 + edema up to abdomen NEUROLOGICAL: Pt alert and awake, able to follow commands and express discomfort. SKIN: bilateral upper extremity and lower extremity echymoses. Upper extremities more extensive than lower extremities. sacral ulcer stage 4 ED Treatment Course - LABORATORY CBC & Chemistry Diagram: 05/13/19 06:00 05/13/19 06:00 Medical Decision Making - Medical Decision Making 05/08/19 19:17 Sepsis work up initiated IV access in right EJ and 22G in left foot placed by EMS Pt has received 1L of NS per EMS. will hold off on IV fluids at this time due to generalized edema Pt given vanc and gentamicin for antibiotic coverage. Labs pending. Pt signed out to night team. EKG:AV flutter 2:1 block. rate 153 Discharge - Discharge Information Problems reviewed: Yes Clinical Impression/Diagnosis: Decubitus ulcer of sacral region, stage 4 Atrial flutter Qualifiers: Atrial flutter type: typical Qualified Code(s): I48.3 - Typical atrial flutter Condition: Fair - Follow up/Referral - Patient Discharge Instructions - Post Discharge Activity
--- NOTE | 2019-05-08 18:36 | PDOC ---
Attending Attestation - Resident Resident Name: Josy Price - ED Attending Attestation I have performed the following: I have examined & evaluated the patient, The case was reviewed & discussed with the resident, I agree w/resident's findings & plan, Exceptions are as noted - HPI HPI: 05/08/19 18:37 83 y/o/m from [facility] with PMHx of CABG, HTN, HLD, ESRD s/p Nephrostomy Tubes, COPD s/p Trach/Vent Dependent, Pneumonia, PEG Placement, DM, Anemia, recent prolonged sepsis admission presents to the ED from [facility] with tachycardia to 130s. History is limited as pt unable to communicate. - Physicial Exam PE: 05/08/19 18:39 GENERAL: Awake, alert, non verbal, in no acute distress EYES: EOMI, sclera anicteric, conjunctiva clear ENT: trach in place, connected to vent NECK: +JVD LUNGS: Breath sounds equal, diminshed at the bases b/l. No wheezes, and no crackles HEART: Tachycardic to 150 but regular, normal S1 and S2, no murmurs, rubs or gallops ABDOMEN: Soft, nontender, normoactive bowel sounds. No guarding, no rebound. No masses. PEG tube in place : rectal temp 99.3, no dark stool, no bleeding EXTREMITIES: Diffuse anasarca b/l UE and LE, WWP NEUROLOGICAL: Cranial nerves intact, non verbal - Critical Care Time Total Critical Care Time: 60 Critical Care Statement: The care of this patient involved high complexity decision making to prevent further life threatening deterioration of the patient 's condition and/or to evaluate & treat vital organ system(s) failure or risk of failure. - Medical Decision Making 05/08/19 19:00 83yo M, chronic trach/PEG, recent admission for sepsis presents to the ED with tachycardia, low grade temp HR 150 consistently, most likely aflutter with 2:1 block Concern for recurrent sepsis Pt very difficult IV access, had 22G by EMS in foot, but infiltrated, eventually placed 20G in right EJ Pt covered empirically with vanc/gent based on previous sensitivities ( klebsiella in UCx/pseudomonas in sputum sensitive to gentamycin and MRSA sensitive to Vanc) Labs, CXR, UA pending at this time Stable, satting 100% on vent BP wnl, thus will hold off on fluids given anasarca on exam Anticipate admission to tele vs ICU based on w/u Case signed out to overnight attending for further mgmt/dispo Heart Score/ECG Review #1 05/08/19 18:54 EKG read and int by me: Aflutter with 2:1 block, rate 152, no BAILEY
[2019-05-08 18:44] LABS: VENOUS PC02 37.1 mmHg (38-52); VENOUS PH 7.51 (7.31-7.41); VENOUS PO2 56.9 mmHg (28-48)
[2019-05-08] MEDS ORDERED: VANCOMYCIN 1,000 MG in DEXTROSE 5%-WATER - 250 ML IVPB ONE (18:46)
[2019-05-08 18:49] LABS: HEMATOCRIT 23.1 % (35.4-49); HEMOGLOBIN 7.5 GM/dL (11.7-16.9); MCHC 32.3 g/dl (32.0-35.9); MEAN CELL VOLUME 101.9 fl (80-96); MEAN PLT VOLUME 9.8 fl (7.5-11.1); PLATELET COUNT 182 K/MM3 (134-434); RBC 2.26 M/mm3 (4.00-5.60); RDW 25.9 % (11.9-15.9)
[2019-05-08] MEDS ORDERED: GENTAMICIN INJECTION 300 MG in DEXTROSE 5%-WATER - 250 ML IVPB SCH (19:00)
[2019-05-08 19:01] LABS: ADD RBC MORPHOLOGY YES
[2019-05-08 19:07] LABS: INR 1.47 (0.83-1.09); PROTHROMBIN TIME (PATIENT) 17.4 SEC (9.7-13.0)
[2019-05-08 19:09] LABS: ACTIVATED PTT 33.4 SECONDS (25.2-36.5); EPI CELLS 2.5 /HPF (0-5/HPF); HYALINE CASTS 13 /lpf (0-8); PH,URINE 6.5 (5.0-8.0); URINE APPEARANCE TURBID; URINE BACTERIA 4202.4 /hpf (NEGATIVE); URINE BILIRUBIN NEGATIVE (NEGATIVE); URINE COLOR YELLOW; URINE GLUCOSE (UA) NEGATIVE (NEGATIVE); URINE KETONE NEGATIVE (NEGATIVE); URINE LEUK ESTERASE 3+ (NEGATIVE); URINE NITRITE NEGATIVE (NEGATIVE); URINE PROTEIN 1+ (NEGATIVE); URINE UROBILINOGEN 0.2 mg/dL (0.2-1.0); URINE WBC 605 /hpf (0-5)
[2019-05-08 19:12] LABS: ALBUMIN 1.2 g/dl (3.4-5.0); BILIRUBIN,TOTAL 0.9 mg/dL (0.2-1); BLOOD UREA NITROGEN 53.9 mg/dL (7-18); CALCIUM 7.8 mg/dL (8.5-10.1); CREATININE 1.4 mg/dL (0.55-1.3); POTASSIUM 4.5 mmol/L (3.5-5.1); TOT PROT 6.8 g/dl (6.4-8.2)
--- NOTE | 2019-05-08 19:20 | PDOC ---
*Physical Exam - Vital Signs Last Vital Signs Temp Pulse Resp BP Pulse Ox 99.3 F 152 H 32 H 114/74 98 05/08/19 17:00 05/08/19 17:00 05/08/19 17:05 05/08/19 17:00 05/08/19 17:00 ED Treatment Course - LABORATORY CBC & Chemistry Diagram: 05/08/19 18:24 05/08/19 18:24 - ADDITIONAL ORDERS Additional order review: Laboratory Results 05/08/19 05/08/19 05/08/19 18:24 18:24 18:24 PT with INR INR PTT (Actin FS) VBG pH 7.51 H POC VBG pCO2 37.1 L POC VBG pO2 56.9 H VBG HCO3 29.6 H VBG O2 Sat (Jewel) 91.5 H VBG Base Excess 6.4 H Sodium Potassium Chloride Carbon Dioxide Anion Gap BUN Creatinine Est GFR (CKD-EPI)AfAm Est GFR (CKD-EPI)NonAf Random Glucose Lactic Acid 2.0 Calcium Total Bilirubin AST ALT Alkaline Phosphatase Troponin I Total Protein Albumin Urine Color Yellow Urine Appearance Turbid Urine pH 6.5 D Ur Specific Calcium 1.014 Urine Protein 1+ H Urine Glucose (UA) Negative Urine Ketones Negative Urine Blood 1+ H Urine Nitrite Negative Urine Bilirubin Negative Urine Urobilinogen 0.2 Ur Leukocyte Esterase 3+ H Urine WBC (Auto) 605 Urine Casts (Auto) 13 U Epithel Cells (Auto) 2.5 Urine Bacteria (Auto) 4202.4 05/08/19 05/08/19 05/08/19 18:24 18:24 18:24 PT with INR 17.40 H INR 1.47 H PTT (Actin FS) 33.4 VBG pH POC VBG pCO2 POC VBG pO2 VBG HCO3 VBG O2 Sat (Jewel) VBG Base Excess Sodium 145 Potassium 4.5 Chloride 110 H Carbon Dioxide 30 Anion Gap 5 L BUN 53.9 H Creatinine 1.4 H Est GFR (CKD-EPI)AfAm 53.85 Est GFR (CKD-EPI)NonAf 46.46 Random Glucose 83 Lactic Acid Calcium 7.8 L Total Bilirubin 0.9 AST 59 H ALT 48 Alkaline Phosphatase 280 H Troponin I < 0.02 Total Protein 6.8 Albumin 1.2 L Urine Color Urine Appearance Urine pH Ur Specific Calcium Urine Protein Urine Glucose (UA) Urine Ketones Urine Blood Urine Nitrite Urine Bilirubin Urine Urobilinogen Ur Leukocyte Esterase Urine WBC (Auto) Urine Casts (Auto) U Epithel Cells (Auto) Urine Bacteria (Auto) 05/08/19 18:24 RBC 2.26 L MCV 101.9 H MCHC 32.3 RDW 25.9 H MPV 9.8 Neutrophils % No Result Required. Lymphocytes % No Result Required. Medical Decision Making - Medical Decision Making Pt presents from [facility] w/ concern of tachycardia to 150s Pt received as sign out, consider infectious nidus (sacral wound vs UTI), also consider CHF/volume overload Will add BNP 05/08/19 19:20 Pt given Digoxen 0.25mg IV once for persistent a-flutter with tachycardia to 152 Pt given Vanc/Gent for concern of infection Holding fluids for now as pt LA is 2, no leukocytosis, afebrile, and history of HF Pt signed out to [facility] and ICU 05/08/19 21:12 Will give NS 250cc IV once Huber exchanged in ED Discharge - Discharge Information Problems reviewed: Yes Clinical Impression/Diagnosis: Decubitus ulcer of sacral region, stage 4 Atrial flutter Qualifiers: Atrial flutter type: typical Qualified Code(s): I48.3 - Typical atrial flutter Condition: Guarded - Admission Yes - Follow up/Referral - Patient Discharge Instructions - Post Discharge Activity
[2019-05-08] MEDS ORDERED: VANCOMYCIN 1 GRAM (PRE-DOCKED) 1,000 MG/250 ML BAG IVPB ONE (19:24)
[2019-05-08] MEDS ORDERED: morphine CARPU-JECT 4 MG/1 ML DISP.SYRIN IVPUSH ONE (19:30)
[2019-05-08 19:45] LABS: ANISOCYTOSIS 3+; MACROCYTOSIS 1+; PLATELET ESTIMATE ADEQUATE
[2019-05-08] MEDS ORDERED: MORPHINE SULFATE 2 MG/ML VIAL ONE (19:49)
[2019-05-08] MEDS ORDERED: DIGOXIN 0.5 MG/2 ML AMPUL IVPUSH ONE (20:08)
[2019-05-08] MEDS ORDERED: DIGOXIN 0.5 MG/2 ML AMPUL ONE (20:12)
[2019-05-08] MEDS ORDERED: ACETAMINOPHEN 1000 MG/100 ML VIAL (NON FORMULARY) IVPB ONE (20:35)
[2019-05-08 20:45] LABS: N-TERMINAL BNP 39179.2 pg/ml (5-450)
[2019-05-08 20:55] LABS: URINE RBC 9.2 /hpf (0-4)
[2019-05-08 20:57] LABS: URINE CRYSTALS FEW CA OXALATE CRYST /hpf
[2019-05-08] MEDS ORDERED: ACETAMINOPHEN INJECTION 100 ML IVPB ONE (20:57)
[2019-05-08 20:58] LABS: YEAST MODERATE (NEGATIVE)
[2019-05-08] MEDS ORDERED: CHLORHEXIDINE GLUCONATE 4% CLEANSER FOR DECOLONIZATION TP SCH (22:00)
--- NOTE | 2019-05-08 22:00 | CONSULT ---
Consultation: REQUESTING PROVIDER: CONSULT REQUEST: We have been asked to medically evaluate this patient for cardiac and airway monitoring. HISTORY OF PRESENT ILLNESS: 83 y.o. M from [facility] with recent admission here (03/31/19-05/06/2019 for PNA & GI bleed) with PMH CABG, HTN, HLD, ESRD (b/l nephrostomy tubes removed by uro 04/28/2019), COPD s/p trach/vent dependent, pneumonia, PEG tube, DM, anemia presenting for tachycardia to 150s noted in his NH. As per AR and prior admission, pt has a labile HR fluctuating from 70s-110s. Pt trached and unable to provide history. EKG showing a-flutter rate 150s. PHYSICAL EXAMINATION Vital Signs - 24 hr 05/08/19 05/08/19 17:00 17:05 Temperature 99.3 F Pulse Rate 152 H Respiratory 16 32 H Rate Blood Pressure 114/74 O2 Sat by Pulse 98 Oximetry (%) GENERAL: Lying in bed. NAD. HEENT: Trached, on vent. PERRLA. LUNGS: Scattered rhonchi throughout, R>L HEART: Irregular, Tachycardic. + systolic murmur 3/6 ABDOMEN: Soft, mildly distended. + guarding to suprapubic palpation. PEG tube in place c/d/i : Bryant in place draining yellow urine EXTREMITIES: small hematomas present b/l UE & LE. 2+ pitting edema b/l LE. SKIN: + sacral ulcer, chronic Laboratory Results - last 24 hr 05/08/19 05/08/19 05/08/19 18:24 18:24 18:24 WBC 10.0 RBC 2.26 L Hgb 7.5 L Hct 23.1 L MCV 101.9 H MCH 33.0 MCHC 32.3 RDW 25.9 H Plt Count 182 D MPV 9.8 Absolute Neuts (auto) No Result Required. Total Counted 100 Neutrophils % No Result Required. Neutrophils % (Manual) 83.0 H Band Neutrophils % 4.0 Lymphocytes % No Result Required. Lymphocytes % (Manual) 6.0 L D Monocytes % (Manual) 3 L D Eosinophils % (Manual) 3.0 D Basophils % (Manual) 1.0 D Nucleated RBC % 0 Differential Comment Man diff performed Platelet Estimate Adequate Platelet Comment Slide scanned. Polychromasia 1+ Anisocytosis 3+ Microcytosis 1+ Macrocytosis 1+ PT with INR 17.40 H INR 1.47 H PTT (Actin FS) 33.4 VBG pH POC VBG pCO2 POC VBG pO2 VBG HCO3 VBG O2 Sat (Jewel) VBG Base Excess Sodium Potassium Chloride Carbon Dioxide Anion Gap BUN Creatinine Est GFR (CKD-EPI)AfAm Est GFR (CKD-EPI)NonAf Random Glucose Lactic Acid Calcium Total Bilirubin AST ALT Alkaline Phosphatase Troponin I < 0.02 B-Natriuretic Peptide Total Protein Albumin Urine Color Urine Appearance Urine pH Ur Specific [place] Urine Protein Urine Glucose (UA) Urine Ketones Urine Blood Urine Nitrite Urine Bilirubin Urine Urobilinogen Ur Leukocyte Esterase Urine WBC (Auto) Urine RBC (Auto) Urine Casts (Auto) U Pathogenic Cast Auto U Epithel Cells (Auto) Urine Crystals (Auto) Urine Bacteria (Auto) Urine Yeast (Auto) 05/08/19 05/08/19 05/08/19 18:24 18:24 18:24 WBC RBC Hgb Hct MCV MCH MCHC RDW Plt Count MPV Absolute Neuts (auto) Total Counted Neutrophils % Neutrophils % (Manual) Band Neutrophils % Lymphocytes % Lymphocytes % (Manual) Monocytes % (Manual) Eosinophils % (Manual) Basophils % (Manual) Nucleated RBC % Differential Comment Platelet Estimate Platelet Comment Polychromasia Anisocytosis Microcytosis Macrocytosis PT with INR INR PTT (Actin FS) VBG pH POC VBG pCO2 POC VBG pO2 VBG HCO3 VBG O2 Sat (Jewel) VBG Base Excess Sodium 145 Potassium 4.5 Chloride 110 H Carbon Dioxide 30 Anion Gap 5 L BUN 53.9 H Creatinine 1.4 H Est GFR (CKD-EPI)AfAm 53.85 Est GFR (CKD-EPI)NonAf 46.46 Random Glucose 83 Lactic Acid 2.0 Calcium 7.8 L Total Bilirubin 0.9 AST 59 H ALT 48 Alkaline Phosphatase 280 H Troponin I B-Natriuretic Peptide 74296.2 H Total Protein 6.8 Albumin 1.2 L Urine Color Yellow Urine Appearance Turbid Urine pH 6.5 D Ur Specific [place] 1.014 Urine Protein 1+ H Urine Glucose (UA) Negative Urine Ketones Negative Urine Blood 1+ H Urine Nitrite Negative Urine Bilirubin Negative Urine Urobilinogen 0.2 Ur Leukocyte Esterase 3+ H Urine WBC (Auto) 605 Urine RBC (Auto) 9.2 Urine Casts (Auto) 13 U Pathogenic Cast Auto None seen U Epithel Cells (Auto) 2.5 Urine Crystals (Auto) Few ca oxalate cryst Urine Bacteria (Auto) 4202.4 Urine Yeast (Auto) Moderate 05/08/19 18:24 WBC RBC Hgb Hct MCV MCH MCHC RDW Plt Count MPV Absolute Neuts (auto) Total Counted Neutrophils % Neutrophils % (Manual) Band Neutrophils % Lymphocytes % Lymphocytes % (Manual) Monocytes % (Manual) Eosinophils % (Manual) Basophils % (Manual) Nucleated RBC % Differential Comment Platelet Estimate Platelet Comment Polychromasia Anisocytosis Microcytosis Macrocytosis PT with INR INR PTT (Actin FS) VBG pH 7.51 H POC VBG pCO2 37.1 L POC VBG pO2 56.9 H VBG HCO3 29.6 H VBG O2 Sat (Jewel) 91.5 H VBG Base Excess 6.4 H Sodium Potassium Chloride Carbon Dioxide Anion Gap BUN Creatinine Est GFR (CKD-EPI)AfAm Est GFR (CKD-EPI)NonAf Random Glucose Lactic Acid Calcium Total Bilirubin AST ALT Alkaline Phosphatase Troponin I B-Natriuretic Peptide Total Protein Albumin Urine Color Urine Appearance Urine pH Ur Specific [place] Urine Protein Urine Glucose (UA) Urine Ketones Urine Blood Urine Nitrite Urine Bilirubin Urine Urobilinogen Ur Leukocyte Esterase Urine WBC (Auto) Urine RBC (Auto) Urine Casts (Auto) U Pathogenic Cast Auto U Epithel Cells (Auto) Urine Crystals (Auto) Urine Bacteria (Auto) Urine Yeast (Auto) Active Medications Generic Name Dose Route Start Last Admin Trade Name Freq PRN Reason Stop Dose Admin Gentamicin Sulfate 300 mg/ 257.5 mls @ 250 mls/hr 05/08/19 19:00 05/08/19 20:44 Dextrose IVPB 250 mls/hr ONCE BASSEM Administration ASSESSMENT/PLAN: 83 y.o. M from [facility] with recent admission here (03/31/19-05/06/2019 for PNA & GI bleed) with PMH CABG, HTN, HLD, ESRD (b/l nephrostomy tubes removed by uro 04/28/2019), COPD s/p trach/vent dependent, pneumonia, PEG tube, DM, anemia presenting for tachycardia requiring cardiac & airway monitoring. #CV -EKG: A-flutter, rate 150s -Echo 04/20/19: normal LVEF, mild valvular abnormality, stable moderately dilated TAA -Given digoxin 0.25mg IV in ED for rate control -HTN, d/c'd on cardizem 60mg GT BID, lopressor 100mg GT BID last visit -CHF; d/c'd on lasix 40mg via GT on last visit #Pulm -chronic resp failure s/p trach & vent dependent; 400/12/5/40% -CXR: dense L base, fluid/ atelectasis vs infiltrate. R lung clear, minimal atelect vs. 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 Wilson consulted #Renal -ESRD -S/p bilateral nephrostomy tube removal by Dr. Dumont (urology) 04/28 -home meds: finasteride, lasix #Heme/onc -hgb 7.8 on d/c 2 days ago, now 7.5 -monitor h&h -macrocytic anemia-- ctm #PPX -SCDs Dispo: We will continue to follow the patient. Thank you for this consultative opportunity. Visit type - Emergency Visit Emergency Visit: Yes ED Registration Date: 05/08/19 Care time: The patient presented to the Emergency Department on the above date and was hospitalized for further evaluation of their emergent condition. - New Patient This patient is new to me today: Yes Date on this admission: 06/25/19 - Critical Care Critical Care patient: Yes Total Critical Care Time (in minutes): 45 Critical Care Statement: The care of this patient involved high complexity d ecision making to prevent further life threatening deterioration of the patient's condition and/or to evaluate & treat vital organ system(s) failure or risk of failure. ATTENDING PHYSICIAN STATEMENT I saw and evaluated the patient. I reviewed the resident's note and discussed the case with the resident. I agree with the resident's findings and plan as documented. SUBJECTIVE: OBJECTIVE: ASSESSMENT AND PLAN:
--- NOTE | 2019-05-08 22:12 | HP ---
Admitting History and Physical - Primary Care Physician PCP: Dread Lima - Admission Chief Complaint: Tachycardia History of Present Illness: This is a 83 y/o man from [facility] with a PMHx of Respiratory Failure s/p Trach - vent dependent, COPD, HTN, s/p CABG, Anemia, ESRD s/p Nephrostomy Tubes, Anxiety. Who presents to the ED for evaluation of tachycardia. Patient was admitted last month for Sepsis and GIB. Patient is trach-vent dependent (non- verbal), unable to provide HPI. Obtained history for ED record. ED course was noted for: (1) EKG- SVT 152, ST & T wave abnormality (2) UA- +1 blood, +3 leukocyte esterase, WBC 605, Bacteria 4204 (3) Chest Xray- dense left base compatible with fluid, atelectasis or infiltrate , prominent central markings. right lung clear (4) BNP 4204 History Source: Transfer Record Limitations to Obtaining History: Clinical Condition - Past Medical History Cardiovascular: Yes: Aneurysm, CAD, HTN, Hyperlipdemia Pulmonary: Yes: COPD, Pneumonia, Other (trach/vent dependent) Renal/: Yes: Renal Failure Heme/Onc: Yes: Anemia Endocrine: Yes: Diabetes Mellitus - Past Surgical History Past Surgical History: Yes: AAA Repair, CABG - Smoking History Smoking history: Unknown if ever smoked Have you smoked in the past 12 months: No - Alcohol/Substance Use Hx Alcohol Use: No History of Substance Use: reports: None - Social History ADL: Support Services History of Recent Travel: No Home Medications - Allergies Allergies/Adverse Reactions: Allergies Allergy/AdvReac Type Severity Reaction Status Date / Time chlorhexidine Allergy Verified 05/08/19 22:13 - Home Medications Home Medications: Ambulatory Orders Finasteride 5 mg GT DAILY 03/31/19 Latanoprost/Pf [Latanoprost 0.005% Eye Drop] 1 drop OP HS 03/31/19 Bimatoprost [Lumigan] 1 drop OU DAILY 04/26/19 Acetylcysteine Po/INH 20% [Mucomyst 20 Oral / INH Use Only*] 400 mg NEB RBID vial 05/06/19 Albuterol 0.083% Nebulizer Jossie [Ventolin 0.083% Nebulizer Soln -] 1 amp NEB RQ4H amp 05/06/19 Amino Acids/Protein Hydrolys [Prosource No Carb Liquid Pkt] 30 ml GT BID@0800, 1730 packet 05/06/19 Ascorbic Acid [Vitamin C -] 500 mg GT BID tablet 05/06/19 Bacitracin - [Bacitracin Topical Ointment -] 1 applic TP BID tube 05/06/19 Buspirone HCl [Buspar -] 5 mg PO TID PRN tablet 05/06/19 Diltiazem [Cardizem -] 60 mg PO BID tablet 05/06/19 FENTANYL 12mcg PATCH [DURAGESIC 12mcg PATCH -] 1 patch TD Q72H #0 patch.td72 MDD 1 05/06/19 Fentanyl Patch Waste [Duragesic Patch Waste] 1 each MC PRN PRN each 05/06/19 Metoclopramide Oral Soln [Reglan Oral Solution -] 5 mg PEG TIDAC udc 05/06/19 Metoprolol Tartrate [Lopressor -] 100 mg PO BID tablet 05/06/19 Multivit-Minerals [Certavite-Antioxidant Liquid] 15 ml PEG DAILY cup 05/06/19 Nystatin Powder [Nystop Powder -] 1 applic TP TID applic 05/06/19 Pantoprazole Suspension [Protonix Packets For Oral Suspension -] 40 mg NGT DAILY packet 05/06/19 Polyvinyl Alcohol [Artificial Tears] 1 drop OU QID drops 05/06/19 Sodium Bicarbonate - 650 mg GT DAILY tablet 05/06/19 Sodium Chloride Inhalation [Normal Saline For Inhalation -] 3 ml IH Q6H PRN vial.neb 05/06/19 Aa/Hydrolyzed Collagen, Whey [Lps 15-30 Liquid] 30 ml GT BID 05/08/19 Acetaminophen Oral Solution [Tylenol Oral Solution -] 650 mg GT Q4H PRN Oxycodone HCl 5 mg GT DAILY 05/08/19 Family Medical History Family History: Unable to Obtain Review of Systems Unable to obtain ROS, reason: Clinical Condition Physical Examination Vital Signs: Vital Signs Temperature 99.3 F 05/08/19 17:00 Pulse Rate 152 H 05/08/19 17:00 Respiratory Rate 32 H 05/08/19 17:05 Blood Pressure 114/74 05/08/19 17:00 O2 Sat by Pulse Oximetry (%) 100 05/08/19 21:00 Constitutional: Yes: Mild Distress, Other (trach- vent dependent, non-verbal at baseline) Eyes: Yes: Conjunctiva Clear, PERRL HENT: Yes: WNL, Atraumatic, Normocephalic Cardiovascular: Yes: Tachycardia, Pulse Irregular, JVD, S1, S2 Respiratory: Yes: Diminished, Mechanically Ventilated (trach), Rhonchi Gastrointestinal: Yes: Soft, Abdomen, Obese, Other (PEG) Renal/: Yes: Huber Present (sediment noted in tubing, yellow urine in drainage bag) Breast(s): Yes: WNL Musculoskeletal: Yes: WNL Extremities: Yes: Other (petechial non raised blotches to b/l lower extremities) Edema: Yes Edema: LLE: 2+, RLE: 2+ Peripheral Pulses WNL: Yes Integumentary: Yes: Erythema, Pressure Ulcer (sacral), Rash Neurological: Yes: Other (trach- vent dependent non verbal) Labs: CBC, BMP 05/08/19 18:24 05/08/19 18:24 Laboratory Results - last 24 hr 05/08/19 05/08/19 05/08/19 18:24 18:24 18:24 WBC 10.0 RBC 2.26 L Hgb 7.5 L Hct 23.1 L MCV 101.9 H MCH 33.0 MCHC 32.3 RDW 25.9 H Plt Count 182 D MPV 9.8 Absolute Neuts (auto) No Result Required. Total Counted 100 Neutrophils % No Result Required. Neutrophils % (Manual) 83.0 H Band Neutrophils % 4.0 Lymphocytes % No Result Required. Lymphocytes % (Manual) 6.0 L D Monocytes % (Manual) 3 L D Eosinophils % (Manual) 3.0 D Basophils % (Manual) 1.0 D Nucleated RBC % 0 Differential Comment Man diff performed Platelet Estimate Adequate Platelet Comment Slide scanned. Polychromasia 1+ Anisocytosis 3+ Microcytosis 1+ Macrocytosis 1+ PT with INR 17.40 H INR 1.47 H PTT (Actin FS) 33.4 VBG pH POC VBG pCO2 POC VBG pO2 VBG HCO3 VBG O2 Sat (Jewel) VBG Base Excess Sodium Potassium Chloride Carbon Dioxide Anion Gap BUN Creatinine Est GFR (CKD-EPI)AfAm Est GFR (CKD-EPI)NonAf Random Glucose Lactic Acid Calcium Total Bilirubin AST ALT Alkaline Phosphatase Troponin I < 0.02 B-Natriuretic Peptide Total Protein Albumin Urine Color Urine Appearance Urine pH Ur Specific [place] Urine Protein Urine Glucose (UA) Urine Ketones Urine Blood Urine Nitrite Urine Bilirubin Urine Urobilinogen Ur Leukocyte Esterase Urine WBC (Auto) Urine RBC (Auto) Urine Casts (Auto) U Pathogenic Cast Auto U Epithel Cells (Auto) Urine Crystals (Auto) Urine Bacteria (Auto) Urine Yeast (Auto) Blood Type Antibody Screen 05/08/19 05/08/19 05/08/19 18:24 18:24 18:24 WBC RBC Hgb Hct MCV MCH MCHC RDW Plt Count MPV Absolute Neuts (auto) Total Counted Neutrophils % Neutrophils % (Manual) Band Neutrophils % Lymphocytes % Lymphocytes % (Manual) Monocytes % (Manual) Eosinophils % (Manual) Basophils % (Manual) Nucleated RBC % Differential Comment Platelet Estimate Platelet Comment Polychromasia Anisocytosis Microcytosis Macrocytosis PT with INR INR PTT (Actin FS) VBG pH POC VBG pCO2 POC VBG pO2 VBG HCO3 VBG O2 Sat (Jewel) VBG Base Excess Sodium 145 Potassium 4.5 Chloride 110 H Carbon Dioxide 30 Anion Gap 5 L BUN 53.9 H Creatinine 1.4 H Est GFR (CKD-EPI)AfAm 53.85 Est GFR (CKD-EPI)NonAf 46.46 Random Glucose 83 Lactic Acid 2.0 Calcium 7.8 L Total Bilirubin 0.9 AST 59 H ALT 48 Alkaline Phosphatase 280 H Troponin I B-Natriuretic Peptide 74057.2 H Total Protein 6.8 Albumin 1.2 L Urine Color Yellow Urine Appearance Turbid Urine pH 6.5 D Ur Specific [place] 1.014 Urine Protein 1+ H Urine Glucose (UA) Negative Urine Ketones Negative Urine Blood 1+ H Urine Nitrite Negative Urine Bilirubin Negative Urine Urobilinogen 0.2 Ur Leukocyte Esterase 3+ H Urine WBC (Auto) 605 Urine RBC (Auto) 9.2 Urine Casts (Auto) 13 U Pathogenic Cast Auto None seen U Epithel Cells (Auto) 2.5 Urine Crystals (Auto) Few ca oxalate cryst Urine Bacteria (Auto) 4202.4 Urine Yeast (Auto) Moderate Blood Type Antibody Screen 05/08/19 05/08/19 18:24 20:08 WBC RBC Hgb Hct MCV MCH MCHC RDW Plt Count MPV Absolute Neuts (auto) Total Counted Neutrophils % Neutrophils % (Manual) Band Neutrophils % Lymphocytes % Lymphocytes % (Manual) Monocytes % (Manual) Eosinophils % (Manual) Basophils % (Manual) Nucleated RBC % Differential Comment Platelet Estimate Platelet Comment Polychromasia Anisocytosis Microcytosis Macrocytosis PT with INR INR PTT (Actin FS) VBG pH 7.51 H POC VBG pCO2 37.1 L POC VBG pO2 56.9 H VBG HCO3 29.6 H VBG O2 Sat (Jewel) 91.5 H VBG Base Excess 6.4 H Sodium Potassium Chloride Carbon Dioxide Anion Gap BUN Creatinine Est GFR (CKD-EPI)AfAm Est GFR (CKD-EPI)NonAf Random Glucose Lactic Acid Calcium Total Bilirubin AST ALT Alkaline Phosphatase Troponin I B-Natriuretic Peptide Total Protein Albumin Urine Color Urine Appearance Urine pH Ur Specific [place] Urine Protein Urine Glucose (UA) Urine Ketones Urine Blood Urine Nitrite Urine Bilirubin Urine Urobilinogen Ur Leukocyte Esterase Urine WBC (Auto) Urine RBC (Auto) Urine Casts (Auto) U Pathogenic Cast Auto U Epithel Cells (Auto) Urine Crystals (Auto) Urine Bacteria (Auto) Urine Yeast (Auto) Blood Type O NEGATIVE Antibody Screen Negative Intake & Output 05/06/19 05/07/19 05/08/19 05/09/19 23:59 23:59 23:59 23:59 Weight 102.965 kg 102.965 kg Imaging - Results Chest X-ray: Report Reviewed, Image Reviewed EKG: Image Reviewed Problem List - Problems (1) Sepsis Code(s): A41.9 - SEPSIS, UNSPECIFIED ORGANISM (2) Atrial flutter Code(s): I48.92 - UNSPECIFIED ATRIAL FLUTTER Qualifiers: Atrial flutter type: typical Qualified Code(s): I48.3 - Typical atrial flutter (3) Decubitus ulcer of sacral region, stage 4 Code(s): L89.154 - PRESSURE ULCER OF SACRAL REGION, STAGE 4 (4) Acute and chronic respiratory failure Code(s): J96.20 - ACUTE AND CHR RESP FAILURE, UNSP W HYPOXIA OR HYPERCAPNIA (5) Anemia Code(s): D64.9 - ANEMIA, UNSPECIFIED (6) COPD (chronic obstructive pulmonary disease) Code(s): J44.9 - CHRONIC OBSTRUCTIVE PULMONARY DISEASE, UNSPECIFIED (7) ESRD (end stage renal disease) Code(s): N18.6 - END STAGE RENAL DISEASE (8) HLD (hyperlipidemia) Code(s): E78.5 - HYPERLIPIDEMIA, UNSPECIFIED (9) HTN (hypertension) Code(s): I10 - ESSENTIAL (PRIMARY) HYPERTENSION (10) Nephrostomy status Code(s): Z93.6 - OTHER ARTIFICIAL OPENINGS OF URINARY TRACT STATUS (11) Status post tracheostomy Code(s): Z93.0 - TRACHEOSTOMY STATUS (12) UTI (urinary tract infection) Code(s): N39.0 - URINARY TRACT INFECTION, SITE NOT SPECIFIED (13) Functional quadriplegia Code(s): R53.2 - FUNCTIONAL QUADRIPLEGIA Assessment/Plan This is a 83 y/o man from [facility] with a PMHx of Respiratory Failure s/p Trach - vent dependent, COPD, HTN, s/p CABG, Anemia, ESRD s/p Nephrostomy Tubes, Anxiety. Admitted to ICU for Sepsis, UTI, Arrhythmia for further evaluation of their emergent condition. Plan: # Sepsis Likely secondary to UTI vs Sacral Wound qSOFA 2 Sepsis Criteria Met: P 162, R 32, +3 leukocyte esterase, WBC 605, BUN 53.9 Blood Cultures-pending Urine Culture-pending Sputum Culture-pending Chest Xray report- dense left base compatible with fluid, atelectasis or infiltrate. prominent central markings. right lung clear Gentamycin and Vancomycin given in ED Continue Vancomycin Appreciate ID consult Monitor CBC, BMP Maintain MAP > 65 Tylenol prn # UTI see above # Arrhythmia, CAD, HTN Cardiac Monitoring Serial Enzymes Appreciate Cardiology consult EKG- SVT 152, ST&T wave abnormality, digoxin IV given in ED with improvement BNP 06402 (unknown baseline) Continue home meds with parameters # COPD Continue duonebs Continue home meds Trach- vent dependent Monitor vitals Appreciate Pulm Consult # ESRD s/p Nephrostomy Tubes Cr 1.4- at baseline Monitor BMP Avoid Nephrotoxic drugs #Anemia stable Hgb 7.5 (baseline 7.2-9.0) Will transfuse if Hgb < 7.0 Monitor CBC Monitor vitals # Functional Quadriplegia Complete immobility due to frailty- Chronic Respiratory Failure Requires total care Turn Q2h Maik lift as needed Heel Protectors Fall Precautions # Sacral Wound Stage 4 Continue wound care Turn Reposition Q2h FEN Replete lytes prn Continue Tube Feeds DVT ppx OOB SCDs Heparin SQ Code Status: DNR ([place], HCP- David Kilpatrick (primary), son [phone]) Dispo: Requires Inpatient Care Visit type - Emergency Visit Emergency Visit: Yes ED Registration Date: 05/08/19 Care time: The patient presented to the Emergency Department on the above date and was hospitalized for further evaluation of their emergent condition. - New Patient This patient is new to me today: Yes Date on this admission: 05/08/19 - Critical Care Critical Care patient: Yes Total Critical Care Time (in minutes): 35 Critical Care Statement: The care of this patient involved high complexity decision making to prevent further life threatening deterioration of the patient 's condition and/or to evaluate & treat vital organ system(s) failure or risk of failure.
[2019-05-08] MEDS ORDERED: SODIUM CHLORIDE 0.9% 500 ML INFUS.BAG IV ONE (22:14)
[2019-05-09] MEDS ORDERED: METOPROLOL TARTRATE 50 MG TABLET (FP) PO SCH (00:15)
[2019-05-09] MEDS: MUPIROCIN 2% TOPICAL OINTMENT FOR DECOLONIZATION NS SCH ×3 (00:35→21:45)
[2019-05-09] MEDS: HEPARIN NA (PORCINE) 5,000 UNITS/ML 1ML VIAL SQ SCH ×2 (00:36→09:57)
[2019-05-09] MEDS: METOPROLOL TARTRATE 50 MG TABLET (FP) GT SCH ×3 (00:37→21:42)
[2019-05-09 07:44] LABS: BASO % 0.1 % (0-2.0); EOS % 1.5 % (0-4.5); HEMOGLOBIN 7.4 GM/dL (11.7-16.9); LYMPH % 3.9 % (8-40); MCH 33.2 pg (25.7-33.7); MCHC 32.3 g/dl (32.0-35.9); MEAN CELL VOLUME 102.7 fl (80-96); MEAN PLT VOLUME 9.7 fl (7.5-11.1); NEUT % 90.5 % (42.8-82.8); PLATELET COUNT 188 K/MM3 (134-434); RBC 2.24 M/mm3 (4.00-5.60); RDW 25.9 % (11.9-15.9); WHITE BLOOD COUNT 9.5 K/mm3 (4.0-10.0)
[2019-05-09 08:01] LABS: BLOOD UREA NITROGEN 55.8 mg/dL (7-18); CALCIUM 7.9 mg/dL (8.5-10.1); CREATININE 1.3 mg/dL (0.55-1.3); POTASSIUM 4.5 mmol/L (3.5-5.1)
[2019-05-09] MEDS ORDERED: busPIRone HCL 5 MG TABLET PO PRN (08:43)
[2019-05-09] MEDS ORDERED: ACETAMINOPHEN 650 MG/20.3 ML ORAL SOLUTION (CUPS) GT PRN (08:43)
[2019-05-09] MEDS ORDERED: SODIUM CHLORIDE FOR INHALATION 3 ML VIAL.NEB IH PRN (08:43)
--- NOTE | 2019-05-09 09:28 | CON.CARD ---
Consult Consult Specialty:: Cardiology Referred by:: Evelin Reason for Consultation:: af rvr - History of Present Illness Chief Complaint: sent from [place] for RVR History of Present Illness: 83 year old male with a PMHx of HTN, DM, CAD s/p CABG, ESRD, COPD, prostate cancer, s/p radiation, and s/p trach/vent/peg admitted from jail for coffee ground emesis. EGD 04/16/19 showed no source of active bleeding. He was sent from [place] for tachycardia to 130's. Unable to give history. He was getting Cardizem via Gtube 60 bid. Echocardiogram 04/20/19: normal LV size and systolic function. LVEF 55%. Normal RV. Moderate LA and RA dilatation. Moderate MAC with mild MR. FCAV without stenosis. - History Source History Provided By: Medical Record Limitations to Obtaining History: Intubated - Past Medical History Cardio/Vascular: Yes: Aneurysm, CAD, HTN, Hyperlipdemia Pulmonary: Yes: COPD, Pneumonia, Other (trach/vent dependent) Renal/: Yes: Renal Failure Endocrine: Yes: Diabetes Mellitus - Past Surgical History Past Surgical History: Yes: AAA Repair, CABG - Alcohol/Substance Use Hx Alcohol Use: No History of Substance Use: reports: None - Smoking History Smoking history: Unknown if ever smoked Have you smoked in the past 12 months: No - Social History ADL: Support Services History of Recent Travel: No Home Medications - Allergies Allergies/Adverse Reactions: Allergies Allergy/AdvReac Type Severity Reaction Status Date / Time chlorhexidine Allergy Verified 05/08/19 22:13 - Home Medications Home Medications: Ambulatory Orders Finasteride 5 mg GT DAILY 03/31/19 Latanoprost/Pf [Latanoprost 0.005% Eye Drop] 1 drop OP HS 03/31/19 Bimatoprost [Lumigan] 1 drop OU DAILY 04/26/19 Acetylcysteine Po/INH 20% [Mucomyst 20 Oral / INH Use Only*] 400 mg NEB RBID vial 05/06/19 Albuterol 0.083% Nebulizer Jossie [Ventolin 0.083% Nebulizer Soln -] 1 amp NEB RQ4H amp 05/06/19 Amino Acids/Protein Hydrolys [Prosource No Carb Liquid Pkt] 30 ml GT BID@0800, 1730 packet 05/06/19 Ascorbic Acid [Vitamin C -] 500 mg GT BID tablet 05/06/19 Bacitracin - [Bacitracin Topical Ointment -] 1 applic TP BID tube 05/06/19 Buspirone HCl [Buspar -] 5 mg PO TID PRN tablet 05/06/19 Diltiazem [Cardizem -] 60 mg PO BID tablet 05/06/19 FENTANYL 12mcg PATCH [DURAGESIC 12mcg PATCH -] 1 patch TD Q72H #0 patch.td72 MDD 1 05/06/19 Fentanyl Patch Waste [Duragesic Patch Waste] 1 each MC PRN PRN each 05/06/19 Metoclopramide Oral Soln [Reglan Oral Solution -] 5 mg PEG TIDAC udc 05/06/19 Metoprolol Tartrate [Lopressor -] 100 mg PO BID tablet 05/06/19 Multivit-Minerals [Certavite-Antioxidant Liquid] 15 ml PEG DAILY cup 05/06/19 Nystatin Powder [Nystop Powder -] 1 applic TP TID applic 05/06/19 Pantoprazole Suspension [Protonix Packets For Oral Suspension -] 40 mg NGT DAILY packet 05/06/19 Polyvinyl Alcohol [Artificial Tears] 1 drop OU QID drops 05/06/19 Sodium Bicarbonate - 650 mg GT DAILY tablet 05/06/19 Sodium Chloride Inhalation [Normal Saline For Inhalation -] 3 ml IH Q6H PRN vial.neb 05/06/19 Aa/Hydrolyzed Collagen, Whey [Lps 15-30 Liquid] 30 ml GT BID 05/08/19 Acetaminophen Oral Solution [Tylenol Oral Solution -] 650 mg GT Q4H PRN Oxycodone HCl 5 mg GT DAILY 05/08/19 Vital Signs: Vital Signs Temperature 98.0 F 05/09/19 06:00 Pulse Rate 108 H 05/09/19 08:00 Respiratory Rate 19 05/09/19 08:40 Blood Pressure 121/63 05/09/19 08:00 O2 Sat by Pulse Oximetry (%) 99 05/08/19 22:45 Constitutional: Yes: No Distress Eyes: Yes: EOM Intact HENT: Yes: Normocephalic Neck: Yes: Trachea Midline Respiratory: Yes: Mechanically Ventilated Gastrointestinal: Yes: Normal Bowel Sounds, Soft Cardiovascular: Yes: Tachycardia, Pulse Irregular JVD: No Carotid Bruit: No PMI: Non-Displaced Heart Sounds: Yes: S1, S2 Extremities: Yes: WNL Edema: No - Other Data Labs, Other Data: CBC, BMP 05/09/19 06:10 05/09/19 06:10 INR, PTT INR 1.47 (0.83-1.09) H 05/08/19 18:24 Troponin, BNP 05/08/19 05/08/19 18:24 18:24 Troponin I < 0.02 B-Natriuretic Peptide 21072.2 H Troponin, BNP 05/08/19 05/08/19 18:24 18:24 Troponin I < 0.02 B-Natriuretic Peptide 85475.2 H Imaging - Results Chest X-ray: Report Reviewed (lt base infiltrate) EKG: Report Reviewed (af rvr lad) Assessment/Plan 83 year old male with a PMHx of HTN, DM, CAD s/p CABG, ESRD, COPD, prostate cancer, s/p radiation, and s/p trach/vent/peg admitted from jail for coffee ground emesis. EGD 04/16/19 showed no source of active bleeding. He was sent from [place] for tachycardia to 130's. Unable to give history. Echocardiogram 04/20/19: normal LV size and systolic function. LVEF 55%. Normal RV. Moderate LA and RA dilatation. Moderate MAC with mild MR. FCAV without stenosis. Atrial fibrillation -restart AC if no contraindications. -change dilt to verapamil 40 mg q8h -titrate as tolerated by BP and HR. -no need for repeat testing -limit beta agonists. -will follow with you.
[2019-05-09] MEDS ORDERED: PT OWN MED DRAWER 7, Y5N ONE ×4 (09:38→22:10)
[2019-05-09] MEDS ORDERED: FENTANYL PATCH WASTE TD PRN (09:54)
[2019-05-09] MEDS: oxyCODONE HCL 5 MG TABLET GT SCH (09:56)
[2019-05-09] MEDS: ASCORBIC ACID 500 MG TABLET (FP) GT SCH ×2 (09:57→21:42)
[2019-05-09] MEDS: SODIUM BICARBONATE 650 MG TABLET GT SCH (09:57)
[2019-05-09] MEDS: MULTIVIT-MINERALS ORAL LIQUID PEG SCH (09:58)
[2019-05-09] MEDS: BACITRACIN 15 GM TUBE TOPICAL OINTMENT TP SCH ×2 (10:00→21:44)
[2019-05-09] MEDS ORDERED: dilTIAZem HCL 60 MG TABLET (FP) PO SCH (10:00)
[2019-05-09] MEDS ORDERED: PANTOPRAZOLE SOD 40 MG SUSPENSION PACKET NGT SCH (10:00)
[2019-05-09] MEDS: fentaNYL 12mcg/hr PATCH.TD72 TD SCH (10:07)
[2019-05-09] MEDS: ARTIFICIAL TEARS (POLYVINYL ALCOHOL) OPTH DROPS OU SCH ×4 (10:25→21:44)
[2019-05-09] MEDS: DEXTROSE 5%-LACTATED RINGERS 1,000 ML IV SCH (10:30)
[2019-05-09] MEDS: METOCLOPRAMIDE HCL 5 MG/5 ML UNIT DOSE CUP PEG SCH ×2 (10:30→17:36)
[2019-05-09] MEDS: FINASTERIDE 5 MG TABLET (FP) PO SCH (10:43)
--- NOTE | 2019-05-09 11:02 | EKG ---
Test Reason : Blood Pressure : / mmHG Vent. Rate : 152 BPM Atrial Rate : 152 BPM P-R Int : 000 ms QRS Dur : 104 ms QT Int : 258 ms P-R-T Axes : 000 -44 154 degrees QTc Int : 410 ms SUPRAVENTRICULAR TACHYCARDIA LEFT AXIS DEVIATION ABNORMAL ECG WHEN COMPARED WITH ECG OF 17-APR-2019 09:37, SINUS RHYTHM HAS REPLACED ATRIAL FLUTTER Confirmed by KENNEY PIERRE MD ([id number]) on 05/09/2019 11:02:16 AM Referred By: Confirmed By:KENNEY PIERRE MD
--- NOTE | 2019-05-09 11:32 | PN ---
Teaching Attending Note Name of Resident: Stacey Jimenez ATTENDING PHYSICIAN STATEMENT I saw and evaluated the patient. I reviewed the resident's note and discussed the case with the resident. I agree with the resident's findings and plan as documented. SUBJECTIVE: Pt seen and examined in the ICU. Heart rates better controlled. Vented, arousable. OBJECTIVE: Vital Signs Period Temp Pulse Resp BP Sys/Kang Pulse Ox Last 24 Hr 98.0 F-99.3 F 95-153 16-32 97-121/56-74 98-100 Intake & Output 05/06/19 05/07/19 05/08/19 05/09/19 23:59 23:59 23:59 23:59 Output Total 300 Balance -300 Weight 102.965 kg 91.9 kg Gen: vented, arousable Heart: irregular Lung: scattered rhonchi Abd: soft, nontender Ext: + edema CBC, BMP 05/09/19 06:10 05/09/19 06:10 Active Medications Acetaminophen (Tylenol Oral Solution -) 650 mg GT Q4H PRN PRN Reason: FEVER Acetylcysteine (Mucomyst 20 Oral / Inh Use Only*) 400 mg NEB RBID BASSEM Albuterol Sulfate (Ventolin 0.083% Nebulizer Soln -) 1 amp NEB RQ4H BASSEM Amino Acids (Prosource No Carb Liquid Pkt) 30 ml GT BID@0800,1730 [facility] Artificial Tears (Artificial Tears) 1 drop OU QID [facility] Last Admin: 05/09/19 10:25 Dose: 1 drp Ascorbic Acid (Vitamin C -) 500 mg GT BID [facility] Last Admin: 05/09/19 09:57 Dose: 500 mg Bacitracin (Bacitracin -) 1 applic TP BID [facility] Last Admin: 05/09/19 10:00 Dose: 1 applic Buspirone HCl (Buspar -) 5 mg PO TID PRN PRN Reason: ANXIETY Diltiazem HCl (Cardizem -) 60 mg PO BID [facility] Famotidine (Pepcid) 20 mg NGT BID [facility] Fentanyl (Duragesic 12mcg Patch -) 1 patch TD Q72H [facility] Last Admin: 05/09/19 10:07 Dose: 1 patch Finasteride (Proscar -) 5 mg PO DAILY [facility] Last Admin: 05/09/19 10:43 Dose: 5 mg Furosemide (Lasix Oral Solution -) 40 mg GT BID@0600,1400 [facility] Heparin Sodium (Porcine) (Heparin -) 5,000 unit SQ BID [facility] Last Admin: 05/09/19 09:57 Dose: 5,000 unit Dextrose/Lactated Ringer's (D5-Lr -) 1,000 mls @ 42 mls/hr IV ASDIR [facility] Last Admin: 05/09/19 10:30 Dose: 42 mls/hr Vancomycin HCl 1,250 mg/ (Dextrose) 250 mls @ 250 mls/2 hr IVPB Q24H [facility]; Protocol Vancomycin HCl 1,250 mg/ (Dextrose) 250 mls @ 166.667 mls/hr IVPB ONCE ONE Stop: 05/09/19 20:29 Latanoprost (Xalatan 0.005% Eye Drops -) 1 drop OU HS [facility] Metoclopramide HCl (Reglan Oral Solution -) 5 mg PEG TIDAC [facility] Last Admin: 05/09/19 10:30 Dose: 5 mg Metoprolol Tartrate (Lopressor -) 100 mg GT BID [facility] Last Admin: 05/09/19 00:37 Dose: 100 mg Miscellaneous (Duragesic Patch Waste) 1 each TD PRN PRN PRN Reason: PATCH REMOVAL Multivitamins/Minerals (Certavite-Antioxidant Liquid) 15 ml PEG DAILY [facility] Last Admin: 05/09/19 09:58 Dose: 15 ml Mupirocin (Bactroban Ointment (For Decolonization) -) 1 applic NS BID [facility] Stop: 05/13/19 21:59 Last Admin: 05/09/19 09:59 Dose: 1 applic Nystatin (Nystop Powder -) 1 applic TP TID [facility] Oxycodone HCl (Roxicodone -) 5 mg GT DAILY [facility] Last Admin: 05/09/19 09:56 Dose: 5 mg Sodium Bicarbonate (Sodium Bicarbonate -) 650 mg GT DAILY [facility] Last Admin: 05/09/19 09:57 Dose: 650 mg Sodium Chloride (Normal Saline For Inhalation -) 3 ml IH Q6H PRN PRN Reason: COUGH ASSESSMENT AND PLAN: Chronic Respiratory Failure Atrial Fibrillation with RVR r/o UTI Sacral Decubitus Ulcer COPD CAD s/p CABG CKD Anemia - rate control - continue anticoagulation - would change bryant and recheck UA, UCx - volume assist control - inhaled bronchodilators - enteral feeds - DVT/GI prophylaxis - can monitor on vent floor
[2019-05-09] MEDS: FAMOTIDINE 40 MG/5 ML ORAL SUSPENSION NGT SCH ×2 (11:33→21:45)
--- NOTE | 2019-05-09 11:56 | PN ---
Progress Note, Physician Chief Complaint: Tachycardia History of Present Illness: NAD Mech vent still mildly tachycardiac - Current Medication List Current Medications: Active Medications Acetaminophen (Tylenol Oral Solution -) 650 mg GT Q4H PRN PRN Reason: FEVER Acetylcysteine (Mucomyst 20 Oral / Inh Use Only*) 400 mg NEB RBID BASSEM Amino Acids (Prosource No Carb Liquid Pkt) 30 ml GT BID@0800,1730 [facility] Artificial Tears (Artificial Tears) 1 drop OU QID [facility] Last Admin: 05/09/19 10:25 Dose: 1 drp Ascorbic Acid (Vitamin C -) 500 mg GT BID [facility] Last Admin: 05/09/19 09:57 Dose: 500 mg Bacitracin (Bacitracin -) 1 applic TP BID [facility] Last Admin: 05/09/19 10:00 Dose: 1 applic Buspirone HCl (Buspar -) 5 mg PO TID PRN PRN Reason: ANXIETY Famotidine (Pepcid) 20 mg NGT BID [facility] Last Admin: 05/09/19 11:33 Dose: 20 mg Fentanyl (Duragesic 12mcg Patch -) 1 patch TD Q72H [facility] Last Admin: 05/09/19 10:07 Dose: 1 patch Finasteride (Proscar -) 5 mg PO DAILY [facility] Last Admin: 05/09/19 10:43 Dose: 5 mg Furosemide (Lasix Oral Solution -) 40 mg GT BID@0600,1400 [facility] Heparin Sodium (Porcine) (Heparin -) 5,000 unit SQ BID [facility] Last Admin: 05/09/19 09:57 Dose: 5,000 unit Dextrose/Lactated Ringer's (D5-Lr -) 1,000 mls @ 42 mls/hr IV ASDIR [facility] Last Admin: 05/09/19 10:30 Dose: 42 mls/hr Vancomycin HCl 1,250 mg/ (Dextrose) 250 mls @ 250 mls/2 hr IVPB Q24H [facility]; Protocol Vancomycin HCl 1,250 mg/ (Dextrose) 250 mls @ 166.667 mls/hr IVPB ONCE ONE Stop: 05/09/19 20:29 Latanoprost (Xalatan 0.005% Eye Drops -) 1 drop OU HS [facility] Metoclopramide HCl (Reglan Oral Solution -) 5 mg PEG TIDAC [facility] Last Admin: 05/09/19 10:30 Dose: 5 mg Metoprolol Tartrate (Lopressor -) 100 mg GT BID [facility] Last Admin: 05/09/19 11:39 Dose: 100 mg Miscellaneous (Duragesic Patch Waste) 1 each TD PRN PRN PRN Reason: PATCH REMOVAL Multivitamins/Minerals (Certavite-Antioxidant Liquid) 15 ml PEG DAILY [facility] Last Admin: 05/09/19 09:58 Dose: 15 ml Mupirocin (Bactroban Ointment (For Decolonization) -) 1 applic NS BID [facility] Stop: 05/13/19 21:59 Last Admin: 05/09/19 09:59 Dose: 1 applic Nystatin (Nystop Powder -) 1 applic TP TID [facility] Oxycodone HCl (Roxicodone -) 5 mg GT DAILY [facility] Last Admin: 05/09/19 09:56 Dose: 5 mg Sodium Bicarbonate (Sodium Bicarbonate -) 650 mg GT DAILY [facility] Last Admin: 05/09/19 09:57 Dose: 650 mg Sodium Chloride (Normal Saline For Inhalation -) 3 ml IH Q6H PRN PRN Reason: COUGH Verapamil HCl (Calan -) 40 mg PEG TID [facility] - Objective Vital Signs: Vital Signs Temperature 98.0 F 05/09/19 06:00 Pulse Rate 108 H 05/09/19 08:00 Respiratory Rate 19 05/09/19 08:40 Blood Pressure 121/63 05/09/19 08:00 O2 Sat by Pulse Oximetry (%) 99 05/08/19 22:45 Constitutional: Yes: Well Nourished, No Distress, Calm Cardiovascular: Yes: Tachycardia Respiratory: Yes: Mechanically Ventilated, Rhonchi (diffuse) Gastrointestinal: Yes: Normal Bowel Sounds, Soft Genitourinary: Yes: Huber Present Musculoskeletal: Yes: Muscle Weakness Extremities: Yes: Other (generalized atrophy) Edema: No Peripheral Pulses WNL: Yes Neurological: Yes: Alert, Pre-Existing Deficit Psychiatric: Yes: Alert Labs: CBC, BMP 05/09/19 06:10 05/09/19 06:10 INR, PTT INR 1.47 (0.83-1.09) H 05/08/19 18:24 Problem List - Problems (1) Atrial flutter Assessment/Plan: -Cardiology consult -D/C Diltiazem -Start Verapamil 40 mg TID -Continue Lopressor 100 mg BID -tele monitor -AC contraindicated secondary to recent GI bleed Problems reviewed: Yes Code(s): I48.92 - UNSPECIFIED ATRIAL FLUTTER Qualifiers: Atrial flutter type: typical Qualified Code(s): I48.3 - Typical atrial flutter (2) Decubitus ulcer of sacral region, stage 4 Assessment/Plan: -Wound care -off loading -T&P Q2H Problems reviewed: Yes Code(s): L89.154 - PRESSURE ULCER OF SACRAL REGION, STAGE 4 (3) Functional quadriplegia Problems reviewed: Yes Code(s): R53.2 - FUNCTIONAL QUADRIPLEGIA (4) Acute and chronic respiratory failure Assessment/Plan: -mechanical vent -Pulmonary on board -Bronchodilators PRN Problems reviewed: Yes Code(s): J96.20 - ACUTE AND CHR RESP FAILURE, UNSP W HYPOXIA OR HYPERCAPNIA (5) Anemia Assessment/Plan: -chronic -Monitor trend -Avoid transfusion unless Hg <7.0 to avoid fluid overload Problems reviewed: Yes Code(s): D64.9 - ANEMIA, UNSPECIFIED (6) Urinary retention Assessment/Plan: -Huber catheter -Replaced on 05/08/19 Problems reviewed: Yes Code(s): R33.9 - RETENTION OF URINE, UNSPECIFIED Assessment/Plan see problem list
[2019-05-09] MEDS ORDERED: ALBUTEROL SO4 0.083% IH SOL 2.5 MG/3 ML VIAL.NEB. NEB SCH (12:00)
--- NOTE | 2019-05-09 13:26 | PN ---
Physical Exam: SUBJECTIVE: Patient seen and examined. Pt trach and vented. afebrile . OBJECTIVE: Vital Signs Period Temp Pulse Resp BP Sys/Kang Pulse Ox Last 24 Hr 98.0 F-99.3 F 95-153 16-32 97-121/56-74 98-100 GENERAL: Lying in bed. NAD. HEENT: Trached, on vent. PERRLA. LUNGS: Scattered rhonchi throughout, R>L HEART: Irregular, Tachycardic. + systolic murmur 3/6 ABDOMEN: Soft, mildly distended. + guarding to suprapubic palpation. PEG tube in place c/d/i : [place] in place draining yellow urine EXTREMITIES: small hematomas present b/l UE & LE. 2+ pitting edema b/l LE. SKIN: + sacral ulcer, chronic Laboratory Results - last 24 hr 05/08/19 05/08/19 05/08/19 18:24 18:24 18:24 WBC 10.0 RBC 2.26 L Hgb 7.5 L Hct 23.1 L MCV 101.9 H MCH 33.0 MCHC 32.3 RDW 25.9 H Plt Count 182 D MPV 9.8 Absolute Neuts (auto) No Result Required. Total Counted 100 Neutrophils % No Result Required. Neutrophils % (Manual) 83.0 H Band Neutrophils % 4.0 Lymphocytes % No Result Required. Lymphocytes % (Manual) 6.0 L D Monocytes % Monocytes % (Manual) 3 L D Eosinophils % Eosinophils % (Manual) 3.0 D Basophils % Basophils % (Manual) 1.0 D Nucleated RBC % 0 Differential Comment Man diff performed Platelet Estimate Adequate Platelet Comment Slide scanned. Polychromasia 1+ Anisocytosis 3+ Microcytosis 1+ Macrocytosis 1+ PT with INR 17.40 H INR 1.47 H PTT (Actin FS) 33.4 VBG pH POC VBG pCO2 POC VBG pO2 VBG HCO3 VBG O2 Sat (Jewel) VBG Base Excess Sodium Potassium Chloride Carbon Dioxide Anion Gap BUN Creatinine Est GFR (CKD-EPI)AfAm Est GFR (CKD-EPI)NonAf Random Glucose Lactic Acid Calcium Total Bilirubin AST ALT Alkaline Phosphatase Troponin I < 0.02 B-Natriuretic Peptide Total Protein Albumin Urine Color Urine Appearance Urine pH Ur Specific [place] Urine Protein Urine Glucose (UA) Urine Ketones Urine Blood Urine Nitrite Urine Bilirubin Urine Urobilinogen Ur Leukocyte Esterase Urine WBC (Auto) Urine RBC (Auto) Urine Casts (Auto) U Pathogenic Cast Auto U Epithel Cells (Auto) Urine Crystals (Auto) Urine Bacteria (Auto) Urine Yeast (Auto) Blood Type Antibody Screen Crossmatch 05/08/19 05/08/19 05/08/19 18:24 18:24 18:24 WBC RBC Hgb Hct MCV MCH MCHC RDW Plt Count MPV Absolute Neuts (auto) Total Counted Neutrophils % Neutrophils % (Manual) Band Neutrophils % Lymphocytes % Lymphocytes % (Manual) Monocytes % Monocytes % (Manual) Eosinophils % Eosinophils % (Manual) Basophils % Basophils % (Manual) Nucleated RBC % Differential Comment Platelet Estimate Platelet Comment Polychromasia Anisocytosis Microcytosis Macrocytosis PT with INR INR PTT (Actin FS) VBG pH POC VBG pCO2 POC VBG pO2 VBG HCO3 VBG O2 Sat (Jewel) VBG Base Excess Sodium 145 Potassium 4.5 Chloride 110 H Carbon Dioxide 30 Anion Gap 5 L BUN 53.9 H Creatinine 1.4 H Est GFR (CKD-EPI)AfAm 53.85 Est GFR (CKD-EPI)NonAf 46.46 Random Glucose 83 Lactic Acid 2.0 Calcium 7.8 L Total Bilirubin 0.9 AST 59 H ALT 48 Alkaline Phosphatase 280 H Troponin I B-Natriuretic Peptide 06200.2 H Total Protein 6.8 Albumin 1.2 L Urine Color Yellow Urine Appearance Turbid Urine pH 6.5 D Ur Specific [place] 1.014 Urine Protein 1+ H Urine Glucose (UA) Negative Urine Ketones Negative Urine Blood 1+ H Urine Nitrite Negative Urine Bilirubin Negative Urine Urobilinogen 0.2 Ur Leukocyte Esterase 3+ H Urine WBC (Auto) 605 Urine RBC (Auto) 9.2 Urine Casts (Auto) 13 U Pathogenic Cast Auto None seen U Epithel Cells (Auto) 2.5 Urine Crystals (Auto) Few ca oxalate cryst Urine Bacteria (Auto) 4202.4 Urine Yeast (Auto) Moderate Blood Type Antibody Screen Crossmatch 05/08/19 05/08/19 05/09/19 18:24 20:08 06:10 WBC 9.5 RBC 2.24 L Hgb 7.4 L Hct 23.0 L MCV 102.7 H MCH 33.2 MCHC 32.3 RDW 25.9 H Plt Count 188 MPV 9.7 Absolute Neuts (auto) 8.6 H Total Counted Neutrophils % 90.5 H Neutrophils % (Manual) Band Neutrophils % Lymphocytes % 3.9 L Lymphocytes % (Manual) Monocytes % 4.0 Monocytes % (Manual) Eosinophils % 1.5 Eosinophils % (Manual) Basophils % 0.1 Basophils % (Manual) Nucleated RBC % 0 Differential Comment Platelet Estimate Platelet Comment Polychromasia Anisocytosis Microcytosis Macrocytosis PT with INR INR PTT (Actin FS) VBG pH 7.51 H POC VBG pCO2 37.1 L POC VBG pO2 56.9 H VBG HCO3 29.6 H VBG O2 Sat (Jewel) 91.5 H VBG Base Excess 6.4 H Sodium Potassium Chloride Carbon Dioxide Anion Gap BUN Creatinine Est GFR (CKD-EPI)AfAm Est GFR (CKD-EPI)NonAf Random Glucose Lactic Acid Calcium Total Bilirubin AST ALT Alkaline Phosphatase Troponin I B-Natriuretic Peptide Total Protein Albumin Urine Color Urine Appearance Urine pH Ur Specific [place] Urine Protein Urine Glucose (UA) Urine Ketones Urine Blood Urine Nitrite Urine Bilirubin Urine Urobilinogen Ur Leukocyte Esterase Urine WBC (Auto) Urine RBC (Auto) Urine Casts (Auto) U Pathogenic Cast Auto U Epithel Cells (Auto) Urine Crystals (Auto) Urine Bacteria (Auto) Urine Yeast (Auto) Blood Type O NEGATIVE Antibody Screen Negative Crossmatch See Detail 05/09/19 06:10 WBC RBC Hgb Hct MCV MCH MCHC RDW Plt Count MPV Absolute Neuts (auto) Total Counted Neutrophils % Neutrophils % (Manual) Band Neutrophils % Lymphocytes % Lymphocytes % (Manual) Monocytes % Monocytes % (Manual) Eosinophils % Eosinophils % (Manual) Basophils % Basophils % (Manual) Nucleated RBC % Differential Comment Platelet Estimate Platelet Comment Polychromasia Anisocytosis Microcytosis Macrocytosis PT with INR INR PTT (Actin FS) VBG pH POC VBG pCO2 POC VBG pO2 VBG HCO3 VBG O2 Sat (Jewel) VBG Base Excess Sodium 145 Potassium 4.5 Chloride 109 H Carbon Dioxide 32 Anion Gap 4 L BUN 55.8 H Creatinine 1.3 Est GFR (CKD-EPI)AfAm 58.89 Est GFR (CKD-EPI)NonAf 50.81 Random Glucose 71 L Lactic Acid Calcium 7.9 L Total Bilirubin AST ALT Alkaline Phosphatase Troponin I B-Natriuretic Peptide Total Protein Albumin Urine Color Urine Appearance Urine pH Ur Specific [place] Urine Protein Urine Glucose (UA) Urine Ketones Urine Blood Urine Nitrite Urine Bilirubin Urine Urobilinogen Ur Leukocyte Esterase Urine WBC (Auto) Urine RBC (Auto) Urine Casts (Auto) U Pathogenic Cast Auto U Epithel Cells (Auto) Urine Crystals (Auto) Urine Bacteria (Auto) Urine Yeast (Auto) Blood Type Antibody Screen Crossmatch Active Medications Generic Name Dose Route Start Last Admin Trade Name Freq PRN Reason Stop Dose Admin Acetaminophen 650 mg 05/09/19 08:43 Tylenol Oral Solution - GT Q4H PRN FEVER Acetylcysteine 400 mg 05/09/19 20:00 Mucomyst 20 Oral / Inh Use Only* NEB RBID BASSEM Amino Acids 30 ml 05/09/19 17:30 Prosource No Carb Liquid Pkt GT BID@0800,1730 BASSEM Artificial Tears 1 drop 05/09/19 10:00 05/09/19 10:25 Artificial Tears OU 1 drp QID BASSEM Administration Ascorbic Acid 500 mg 05/09/19 10:00 05/09/19 09:57 Vitamin C - GT 500 mg BID BASSEM Administration Bacitracin 1 applic 05/09/19 10:00 05/09/19 10:00 Bacitracin - TP 1 applic BID BASSEM Administration Buspirone HCl 5 mg 05/09/19 08:43 Buspar - PO TID PRN ANXIETY Famotidine 20 mg 05/09/19 10:00 05/09/19 11:33 Pepcid NGT 20 mg BID BASSEM Administration Fentanyl 1 patch 05/09/19 10:15 05/09/19 10:07 Duragesic 12mcg Patch - TD 1 patch Q72H BASSEM Administration Finasteride 5 mg 05/09/19 10:00 05/09/19 10:43 Proscar - PO 5 mg DAILY BASSEM Administration Furosemide 40 mg 05/09/19 14:00 Lasix Oral Solution - GT BID@0600,1400 BASSEM Heparin Sodium (Porcine) 5,000 unit 05/08/19 22:00 05/09/19 09:57 Heparin - SQ 5,000 unit BID BASSEM Administration Dextrose/Lactated Ringer's 1,000 mls @ 42 mls/hr 05/09/19 06:30 05/09/19 10:30 D5-Lr - IV 42 mls/hr ASDIR BASSEM Administration Vancomycin HCl 1,250 mg/ 250 mls @ 250 mls/2 hr 05/09/19 19:00 Dextrose IVPB Q24H BASSEM Protocol Vancomycin HCl 1,250 mg/ 250 mls @ 166.667 mls/hr 05/09/19 19:00 Dextrose IVPB 05/09/19 20:29 ONCE ONE Latanoprost 1 drop 05/09/19 22:00 Xalatan 0.005% Eye Drops - OU HS BASSEM Metoclopramide HCl 5 mg 05/09/19 11:00 05/09/19 10:30 Reglan Oral Solution - PEG 5 mg TIDAC BASSEM Administration Metoprolol Tartrate 100 mg 05/09/19 00:15 05/09/19 11:39 Lopressor - GT 100 mg BID BASSEM Administration Miscellaneous 1 each 05/09/19 09:54 Duragesic Patch Waste TD PRN PRN PATCH REMOVAL Multivitamins/Minerals 15 ml 05/09/19 10:00 05/09/19 09:58 Certavite-Antioxidant Liquid PEG 15 ml DAILY BASSEM Administration Mupirocin 1 applic 05/08/19 22:00 05/09/19 09:59 Bactroban Ointment (For Decolonization) - NS 05/13/19 21:59 1 applic BID BASSEM Administration Nystatin 1 applic 05/09/19 14:00 Nystop Powder - TP TID BASSEM Oxycodone HCl 5 mg 05/09/19 10:00 05/09/19 09:56 Roxicodone - GT 5 mg DAILY BASSEM Administration Sodium Bicarbonate 650 mg 05/09/19 10:00 05/09/19 09:57 Sodium Bicarbonate - GT 650 mg DAILY BASSEM Administration Sodium Chloride 3 ml 05/09/19 08:43 Normal Saline For Inhalation - IH Q6H PRN COUGH Verapamil HCl 40 mg 05/09/19 14:00 Calan - PEG TID [facility] ASSESSMENT/PLAN: 83 y.o. M from [facility] with recent admission here (03/31/19-05/06/2019 for PNA & GI bleed) with PMH CABG, HTN, HLD, ESRD (b/l nephrostomy tubes removed by uro 04/28/2019), COPD s/p trach/vent dependent, pneumonia, PEG tube, DM, anemia presenting for tachycardia requiring cardiac & airway monitoring. #CV - HR 108 currently -Echo 04/20/19: normal LVEF, mild valvular abnormality, stable moderately dilated TAA -changed dilt to verapamil 40 mg q8h -titrate as tolerated by BP and HR. -no need for repeat testing -limit beta agonists. -per Cardio, restart AC if no contraindications. #Pulm -chronic resp failure s/p trach & vent dependent; 400/12/5/40% -CXR: dense L base, fluid/ atelectasis vs infiltrate. R lung clear, minimal atelect vs. scarring @ rt base -maintain SaO2 >90% #ID -Hx + sputum MRSA 04/08/19 -hx ESBL L nephrostomy 03/31/19 -UA + (from [facility])-- 3+ LE, 1+ blood, +organisms -afebrile -f/u urine, blood cx's -changed [facility] and resent UA -cont vanc & gentamicin given -Dr. Wilson consulted and recs appreciated #Renal -ESRD -S/p bilateral nephrostomy tube removal by Dr. Dumont (urology) 04/28 -home meds: finasteride, lasix #Heme/onc -hgb 7.8 on d/c 2 days ago, now 7.5->7.4 -1 Unit PRBC -post transfusion CBC hb 8.1 -monitor h&h #PPX -SCDs Dispo: med surge transfer Visit type - Emergency Visit Emergency Visit: Yes ED Registration Date: 05/08/19 Care time: The patient presented to the Emergency Department on the above date and was hospitalized for further evaluation of their emergent condition. - New Patient This patient is new to me today: Yes Date on this admission: 05/09/19 - Critical Care Critical Care patient: Yes Total Critical Care Time (in minutes): 35 Critical Care Statement: The care of this patient involved high complexity decision making to prevent further life threatening deterioration of the patient's condition and/or to evaluate & treat vital organ system(s) failure or risk of failure. ATTENDING PHYSICIAN STATEMENT I saw and evaluated the patient. I reviewed the resident's note and discussed the case with the resident. I agree with the resident's findings and plan as documented. SUBJECTIVE: OBJECTIVE: ASSESSMENT AND PLAN:
--- NOTE | 2019-05-09 13:35 | PN ---
Progress Note (short form) - Note Progress Note: ID CONSULT DICTATED TACHYARRHYMIA R/O SEPSIS ? LLL PNEUMONIA UTI SACRAL DECUBITUS ULCER HX MDRO ESRD CHRONIC RESP FAILURE AWAIT SEPSIS W/U EMPIRIC VANCOMYCIN/ GENTAMICIN ADJUSTED FOR ESRD
[2019-05-09] MEDS: VERAPAMIL HCL 40 MG TABLET PEG SCH ×2 (13:56→21:43)
[2019-05-09] MEDS: FUROSEMIDE 40 MG/5 ML UNIT-DOSE CUP GT SCH (13:58)
[2019-05-09] MEDS: NYSTATIN POWDER 100,000 UNITS/GM - 15 GM TOPICAL POWDER TP SCH ×2 (13:59→21:45)
--- NOTE | 2019-05-09 15:01 | PN ---
Physical Exam: SUBJECTIVE: Patient seen and examined OBJECTIVE: Vital Signs Period Temp Pulse Resp BP Sys/Kang Pulse Ox Last 24 Hr 98.0 F-99.3 F 95-153 16-32 97-121/56-74 98-100 GENERAL: The patient is awake, alert, and fully oriented, in no acute distress. HEAD: Normal with no signs of trauma. EYES: PERRL, extraocular movements intact, sclera anicteric, conjunctiva clear. No ptosis. ENT: Ears normal, nares patent, oropharynx clear without exudates, moist mucous membranes. NECK: Trachea midline, full range of motion, supple. LUNGS: Breath sounds equal, clear to auscultation bilaterally, no wheezes, no crackles, no accessory muscle use. HEART: Regular rate and rhythm, S1, S2 without murmur, rub or gallop. ABDOMEN: Soft, nontender, nondistended, normoactive bowel sounds, no guarding, no rebound, no hepatosplenomegaly, no masses. EXTREMITIES: 2+ pulses, warm, well-perfused, no edema. NEUROLOGICAL: Cranial nerves II through XII grossly intact. Normal speech, gait not observed. PSYCH: Normal mood, normal affect. SKIN: Warm, dry, normal turgor, no rashes or lesions noted Laboratory Results - last 24 hr 05/08/19 05/08/19 05/08/19 18:24 18:24 18:24 WBC 10.0 RBC 2.26 L Hgb 7.5 L Hct 23.1 L MCV 101.9 H MCH 33.0 MCHC 32.3 RDW 25.9 H Plt Count 182 D MPV 9.8 Absolute Neuts (auto) No Result Required. Total Counted 100 Neutrophils % No Result Required. Neutrophils % (Manual) 83.0 H Band Neutrophils % 4.0 Lymphocytes % No Result Required. Lymphocytes % (Manual) 6.0 L D Monocytes % Monocytes % (Manual) 3 L D Eosinophils % Eosinophils % (Manual) 3.0 D Basophils % Basophils % (Manual) 1.0 D Nucleated RBC % 0 Differential Comment Man diff performed Platelet Estimate Adequate Platelet Comment Slide scanned. Polychromasia 1+ Anisocytosis 3+ Microcytosis 1+ Macrocytosis 1+ PT with INR 17.40 H INR 1.47 H PTT (Actin FS) 33.4 VBG pH POC VBG pCO2 POC VBG pO2 VBG HCO3 VBG O2 Sat (Jewel) VBG Base Excess Sodium Potassium Chloride Carbon Dioxide Anion Gap BUN Creatinine Est GFR (CKD-EPI)AfAm Est GFR (CKD-EPI)NonAf Random Glucose Lactic Acid Calcium Total Bilirubin AST ALT Alkaline Phosphatase Troponin I < 0.02 B-Natriuretic Peptide Total Protein Albumin Urine Color Urine Appearance Urine pH Ur Specific [place] Urine Protein Urine Glucose (UA) Urine Ketones Urine Blood Urine Nitrite Urine Bilirubin Urine Urobilinogen Ur Leukocyte Esterase Urine WBC (Auto) Urine RBC (Auto) Urine Casts (Auto) U Pathogenic Cast Auto U Epithel Cells (Auto) Urine Crystals (Auto) Urine Bacteria (Auto) Urine Yeast (Auto) Blood Type Antibody Screen Crossmatch 05/08/19 05/08/19 05/08/19 18:24 18:24 18:24 WBC RBC Hgb Hct MCV MCH MCHC RDW Plt Count MPV Absolute Neuts (auto) Total Counted Neutrophils % Neutrophils % (Manual) Band Neutrophils % Lymphocytes % Lymphocytes % (Manual) Monocytes % Monocytes % (Manual) Eosinophils % Eosinophils % (Manual) Basophils % Basophils % (Manual) Nucleated RBC % Differential Comment Platelet Estimate Platelet Comment Polychromasia Anisocytosis Microcytosis Macrocytosis PT with INR INR PTT (Actin FS) VBG pH POC VBG pCO2 POC VBG pO2 VBG HCO3 VBG O2 Sat (Jewel) VBG Base Excess Sodium 145 Potassium 4.5 Chloride 110 H Carbon Dioxide 30 Anion Gap 5 L BUN 53.9 H Creatinine 1.4 H Est GFR (CKD-EPI)AfAm 53.85 Est GFR (CKD-EPI)NonAf 46.46 Random Glucose 83 Lactic Acid 2.0 Calcium 7.8 L Total Bilirubin 0.9 AST 59 H ALT 48 Alkaline Phosphatase 280 H Troponin I B-Natriuretic Peptide 88184.2 H Total Protein 6.8 Albumin 1.2 L Urine Color Yellow Urine Appearance Turbid Urine pH 6.5 D Ur Specific [place] 1.014 Urine Protein 1+ H Urine Glucose (UA) Negative Urine Ketones Negative Urine Blood 1+ H Urine Nitrite Negative Urine Bilirubin Negative Urine Urobilinogen 0.2 Ur Leukocyte Esterase 3+ H Urine WBC (Auto) 605 Urine RBC (Auto) 9.2 Urine Casts (Auto) 13 U Pathogenic Cast Auto None seen U Epithel Cells (Auto) 2.5 Urine Crystals (Auto) Few ca oxalate cryst Urine Bacteria (Auto) 4202.4 Urine Yeast (Auto) Moderate Blood Type Antibody Screen Crossmatch 05/08/19 05/08/19 05/09/19 18:24 20:08 06:10 WBC 9.5 RBC 2.24 L Hgb 7.4 L Hct 23.0 L MCV 102.7 H MCH 33.2 MCHC 32.3 RDW 25.9 H Plt Count 188 MPV 9.7 Absolute Neuts (auto) 8.6 H Total Counted Neutrophils % 90.5 H Neutrophils % (Manual) Band Neutrophils % Lymphocytes % 3.9 L Lymphocytes % (Manual) Monocytes % 4.0 Monocytes % (Manual) Eosinophils % 1.5 Eosinophils % (Manual) Basophils % 0.1 Basophils % (Manual) Nucleated RBC % 0 Differential Comment Platelet Estimate Platelet Comment Polychromasia Anisocytosis Microcytosis Macrocytosis PT with INR INR PTT (Actin FS) VBG pH 7.51 H POC VBG pCO2 37.1 L POC VBG pO2 56.9 H VBG HCO3 29.6 H VBG O2 Sat (Jewel) 91.5 H VBG Base Excess 6.4 H Sodium Potassium Chloride Carbon Dioxide Anion Gap BUN Creatinine Est GFR (CKD-EPI)AfAm Est GFR (CKD-EPI)NonAf Random Glucose Lactic Acid Calcium Total Bilirubin AST ALT Alkaline Phosphatase Troponin I B-Natriuretic Peptide Total Protein Albumin Urine Color Urine Appearance Urine pH Ur Specific [place] Urine Protein Urine Glucose (UA) Urine Ketones Urine Blood Urine Nitrite Urine Bilirubin Urine Urobilinogen Ur Leukocyte Esterase Urine WBC (Auto) Urine RBC (Auto) Urine Casts (Auto) U Pathogenic Cast Auto U Epithel Cells (Auto) Urine Crystals (Auto) Urine Bacteria (Auto) Urine Yeast (Auto) Blood Type O NEGATIVE Antibody Screen Negative Crossmatch See Detail 05/09/19 06:10 WBC RBC Hgb Hct MCV MCH MCHC RDW Plt Count MPV Absolute Neuts (auto) Total Counted Neutrophils % Neutrophils % (Manual) Band Neutrophils % Lymphocytes % Lymphocytes % (Manual) Monocytes % Monocytes % (Manual) Eosinophils % Eosinophils % (Manual) Basophils % Basophils % (Manual) Nucleated RBC % Differential Comment Platelet Estimate Platelet Comment Polychromasia Anisocytosis Microcytosis Macrocytosis PT with INR INR PTT (Actin FS) VBG pH POC VBG pCO2 POC VBG pO2 VBG HCO3 VBG O2 Sat (Jewel) VBG Base Excess Sodium 145 Potassium 4.5 Chloride 109 H Carbon Dioxide 32 Anion Gap 4 L BUN 55.8 H Creatinine 1.3 Est GFR (CKD-EPI)AfAm 58.89 Est GFR (CKD-EPI)NonAf 50.81 Random Glucose 71 L Lactic Acid Calcium 7.9 L Total Bilirubin AST ALT Alkaline Phosphatase Troponin I B-Natriuretic Peptide Total Protein Albumin Urine Color Urine Appearance Urine pH Ur Specific [place] Urine Protein Urine Glucose (UA) Urine Ketones Urine Blood Urine Nitrite Urine Bilirubin Urine Urobilinogen Ur Leukocyte Esterase Urine WBC (Auto) Urine RBC (Auto) Urine Casts (Auto) U Pathogenic Cast Auto U Epithel Cells (Auto) Urine Crystals (Auto) Urine Bacteria (Auto) Urine Yeast (Auto) Blood Type Antibody Screen Crossmatch Active Medications Generic Name Dose Route Start Last Admin Trade Name Freq PRN Reason Stop Dose Admin Acetaminophen 650 mg 05/09/19 08:43 Tylenol Oral Solution - GT Q4H PRN FEVER Acetylcysteine 400 mg 05/09/19 20:00 Mucomyst 20 Oral / Inh Use Only* NEB RBID BASSEM Amino Acids 30 ml 05/09/19 17:30 Prosource No Carb Liquid Pkt GT BID@0800,1730 BASSEM Artificial Tears 1 drop 05/09/19 10:00 05/09/19 13:56 Artificial Tears OU 1 drp QID BASSEM Administration Ascorbic Acid 500 mg 05/09/19 10:00 05/09/19 09:57 Vitamin C - GT 500 mg BID BASSEM Administration Bacitracin 1 applic 05/09/19 10:00 05/09/19 10:00 Bacitracin - TP 1 applic BID BASSEM Administration Buspirone HCl 5 mg 05/09/19 08:43 Buspar - PO TID PRN ANXIETY Famotidine 20 mg 05/09/19 10:00 05/09/19 11:33 Pepcid NGT 20 mg BID BASSEM Administration Fentanyl 1 patch 05/09/19 10:15 05/09/19 10:07 Duragesic 12mcg Patch - TD 1 patch Q72H BASSEM Administration Finasteride 5 mg 05/09/19 10:00 05/09/19 10:43 Proscar - PO 5 mg DAILY BASSEM Administration Furosemide 40 mg 05/09/19 14:00 05/09/19 13:58 Lasix Oral Solution - GT 40 mg BID@0600,1400 BASSEM Administration Heparin Sodium (Porcine) 5,000 unit 05/08/19 22:00 05/09/19 09:57 Heparin - SQ 5,000 unit BID BASSEM Administration Dextrose/Lactated Ringer's 1,000 mls @ 42 mls/hr 05/09/19 06:30 05/09/19 10: 30 D5-Lr - IV 42 mls/hr ASDIR BASSEM Administration Vancomycin HCl 1,250 mg/ 250 mls @ 250 mls/2 hr 05/09/19 19:00 Dextrose IVPB Q24H BASSEM Protocol Vancomycin HCl 1,250 mg/ 250 mls @ 166.667 mls/hr 05/09/19 19:00 Dextrose IVPB 05/09/19 20:29 ONCE ONE Latanoprost 1 drop 05/09/19 22:00 Xalatan 0.005% Eye Drops - OU HS BASSEM Metoclopramide HCl 5 mg 05/09/19 11:00 05/09/19 10:30 Reglan Oral Solution - PEG 5 mg TIDAC BASSEM Administration Metoprolol Tartrate 100 mg 05/09/19 00:15 05/09/19 11:39 Lopressor - GT 100 mg BID BASSEM Administration Miscellaneous 1 each 05/09/19 09:54 Duragesic Patch Waste TD PRN PRN PATCH REMOVAL Multivitamins/Minerals 15 ml 05/09/19 10:00 05/09/19 09:58 Certavite-Antioxidant Liquid PEG 15 ml DAILY BASSEM Administration Mupirocin 1 applic 05/08/19 22:00 05/09/19 09:59 Bactroban Ointment (For Decolonization) - NS 05/13/19 21:59 1 applic BID BASSEM Administration Nystatin 1 applic 05/09/19 14:00 05/09/19 13:59 Nystop Powder - TP 1 applic TID BASSEM Administration Oxycodone HCl 5 mg 05/09/19 10:00 05/09/19 09:56 Roxicodone - GT 5 mg DAILY BASSEM Administration Sodium Bicarbonate 650 mg 05/09/19 10:00 05/09/19 09:57 Sodium Bicarbonate - GT 650 mg DAILY BASSEM Administration Sodium Chloride 3 ml 05/09/19 08:43 Normal Saline For Inhalation - IH Q6H PRN COUGH Verapamil HCl 40 mg 05/09/19 14:00 05/09/19 13:56 Calan - PEG 40 mg TID BASSEM Administration ASSESSMENT/PLAN: ATTENDING PHYSICIAN STATEMENT I saw and evaluated the patient. I reviewed the resident's note and discussed the case with the resident. I agree with the resident's findings and plan as documented. SUBJECTIVE: OBJECTIVE: ASSESSMENT AND PLAN:
[2019-05-09] MEDS: AMINO ACIDS/PROTEIN HYDROLYS 30 ML LIQUID.PKT GT SCH (17:36)
--- NOTE | 2019-05-09 18:15 | CONS ---
DATE OF CONSULTATION: DATE OF DICTATION: 05/09/2019 The patient is an 83-year-old male who is evaluated for possible sepsis. History was obtained from the chart, as he cannot give a history secondary to his mental status. He has a history of chronic respiratory failure, on the ventilator. He recently had a prolonged hospitalization at [facility] in March and April of this year. He is now re-admitted from the [facility] after he was noted to be tachycardic. The patient was noted to be in rapid atrial fibrillation. He was admitted to the intensive care unit. Chest x-ray showed possible pneumonia. Cultures were obtained and he was empirically treated with vancomycin and gentamicin. His previous hospital course was complicated by sepsis syndrome and a history of multidrug resistant pathogens. At the present time, he is awake but he is not verbally responsive. He remains afebrile with normal white blood cell count. Cultures are pending. Past medical history positive for end-stage renal disease, on hemodialysis, history of chronic respiratory failure, on ventilator, coronary artery disease, hypertension, hyperlipidemia, COPD, sacral decubitus ulcer, history of MRSA, ESBL, and Pseudomonas, from various sites. PAST SURGICAL HISTORY: Status post tracheostomy, feeding gastrostomy, coronary artery bypass, and nephrostomy tubes, which have been removed. Allergies to CHLORHEXIDINE. Medications include vancomycin, gentamicin, Tylenol, BuSpar, Pepcid, fentanyl, Lasix, Reglan, oxycodone. SOCIAL HISTORY: He resides in a shelter facility. He is dependent in activities of daily living. He is ventilator dependent. No active tobacco or alcohol use. SYSTEMS REVIEW: Neurologic: No loss of consciousness, seizure activity, or focal weakness. Cardiac: As per HPI. Respiratory: As per HPI. Gastrointestinal: Positive feeding gastrostomy. Genitourinary: End-stage renal disease, on hemodialysis. LABORATORY DATA: White count 9.5, hematocrit 23.0, platelets 188. Creatinine 1.3. Blood and urine cultures are pending. Chest x-ray shows some congestion bilaterally, with non-visualization of the left hemidiaphragm. PHYSICAL EXAMINATION: General: He is chronically ill-appearing, in no acute distress. Vital Signs: Temperature 98.0. Blood pressure 121/63. Pulse 108, regular. Respirations 20 per minute. Eyes: Sclerae anicteric. Heart Sounds: S1, S2, tachycardic, irregular. Lungs: Air entry bilaterally. Abdomen: Soft. No tenderness elicited. Feeding gastrostomy tube is in place. Extremities: Positive for edema. There were multiple ecchymotic areas present on the extremities. IMPRESSION: 1. Tachyarrhythmia. 2. Rule out sepsis. 3. Atelectasis versus infiltrate, left lung base. 4. Pyuria. Rule out urinary tract infection. 5. Stage 4 sacral decubitus ulcer. 6. History of multidrug resistant pathogens. Await sepsis workup. Patient has been given stat doses of vancomycin and gentamicin, adjusted for his chronic end-stage renal disease. Await culture results. Contact precautions. Will follow. Thank you for the kind referral. DESTIN OTT M.D. [id number]
[2019-05-09] MEDS ORDERED: VANCOMYCIN HCL 1,250 MG in DEXTROSE 5%-WATER - 250 ML IVPB SCH (19:00)
[2019-05-09] MEDS ORDERED: VANCOMYCIN HCL 1,250 MG in DEXTROSE 5%-WATER - 250 ML IVPB ONE (19:00)
[2019-05-09 19:30] LABS: EPI CELLS 7.1 /HPF (0-5/HPF); HYALINE CASTS 42 /lpf (0-8); PH,URINE 5.5 (5.0-8.0); URINE APPEARANCE TURBID; URINE BACTERIA 127.5 /hpf (NEGATIVE); URINE BILIRUBIN NEGATIVE (NEGATIVE); URINE COLOR YELLOW; URINE GLUCOSE (UA) NEGATIVE (NEGATIVE); URINE KETONE NEGATIVE (NEGATIVE); URINE LEUK ESTERASE 3+ (NEGATIVE); URINE NITRITE NEGATIVE (NEGATIVE); URINE PROTEIN 1+ (NEGATIVE); URINE UROBILINOGEN 0.2 mg/dL (0.2-1.0); URINE WBC 1290 /hpf (0-5)
[2019-05-09] MEDS ORDERED: ACETYLCYSTEINE 20% 200MG/ML 4 ML VIAL *FOR ORAL / INH USE ONLY NEB SCH (20:00)
[2019-05-09 20:41] LABS: URINE RBC 46.7 /hpf (0-4); YEAST MODERATE (NEGATIVE)
[2019-05-09 21:15] LABS: BASO % 0.1 % (0-2.0); EOS % 0.5 % (0-4.5); HEMATOCRIT 25.4 % (35.4-49); HEMOGLOBIN 8.1 GM/dL (11.7-16.9); MCH 31.6 pg (25.7-33.7); MCHC 31.9 g/dl (32.0-35.9); MEAN CELL VOLUME 99.2 fl (80-96); MEAN PLT VOLUME 9.3 fl (7.5-11.1); NEUT % 93.4 % (42.8-82.8); PLATELET COUNT 201 K/MM3 (134-434); RBC 2.56 M/mm3 (4.00-5.60); RDW 27.6 % (11.9-15.9); WHITE BLOOD COUNT 12.6 K/mm3 (4.0-10.0)
[2019-05-09] MEDS: LATANOPROST 0.005% OPHTH SOLN 2.5ML BOTTLE OU SCH (21:46)
[2019-05-09 22:11] LABS: ANISOCYTOSIS 2+; MACROCYTOSIS 1+; PLATELET ESTIMATE ADEQUATE
[2019-05-10] MEDS ORDERED: PT OWN MED DRAWER 7, Y5N ONE ×4 (06:02→22:12)
[2019-05-10] MEDS: FUROSEMIDE 40 MG/5 ML UNIT-DOSE CUP GT SCH ×2 (06:05→18:21)
[2019-05-10] MEDS: VERAPAMIL HCL 40 MG TABLET PEG SCH ×3 (06:05→23:50)
[2019-05-10] MEDS: NYSTATIN POWDER 100,000 UNITS/GM - 15 GM TOPICAL POWDER TP SCH ×3 (06:06→21:30)
[2019-05-10] MEDS: METOCLOPRAMIDE HCL 5 MG/5 ML UNIT DOSE CUP PEG SCH ×3 (06:06→16:32)
[2019-05-10 07:10] LABS: BASO % 0.4 % (0-2.0); EOS % 0.8 % (0-4.5); HEMATOCRIT 25.2 % (35.4-49); HEMOGLOBIN 7.9 GM/dL (11.7-16.9); LYMPH % 3.8 % (8-40); MCH 31.8 pg (25.7-33.7); MCHC 31.3 g/dl (32.0-35.9); MEAN CELL VOLUME 101.8 fl (80-96); MEAN PLT VOLUME 9.8 fl (7.5-11.1); MONO % 2.2 % (3.8-10.2); NEUT % 92.8 % (42.8-82.8); PLATELET COUNT 201 K/MM3 (134-434); RBC 2.48 M/mm3 (4.00-5.60); RDW 27.7 % (11.9-15.9); WHITE BLOOD COUNT 12.4 K/mm3 (4.0-10.0)
[2019-05-10 07:35] LABS: BILIRUBIN,TOTAL 1.2 mg/dL (0.2-1); BLOOD UREA NITROGEN 53.6 mg/dL (7-18); CALCIUM 7.5 mg/dL (8.5-10.1); CREATININE 1.3 mg/dL (0.55-1.3); MAGNESIUM 1.9 mg/dL (1.8-2.4); PHOSPHOROUS 3.1 mg/dL (2.5-4.9); POTASSIUM 4.4 mmol/L (3.5-5.1)
[2019-05-10] MEDS: ALBUTEROL SO4 0.083% IH SOL 2.5 MG/3 ML VIAL.NEB. NEB SCH ×4 (08:20→20:44)
[2019-05-10] MEDS: AMINO ACIDS/PROTEIN HYDROLYS 30 ML LIQUID.PKT GT SCH ×2 (09:00→18:21)
[2019-05-10] MEDS: DEXTROSE 5%-LACTATED RINGERS 1,000 ML IV SCH (09:04)
[2019-05-10] MEDS: ARTIFICIAL TEARS (POLYVINYL ALCOHOL) OPTH DROPS OU SCH ×4 (09:29→21:31)
[2019-05-10] MEDS: BACITRACIN 15 GM TUBE TOPICAL OINTMENT TP SCH ×2 (09:29→21:29)
[2019-05-10] MEDS: MUPIROCIN 2% TOPICAL OINTMENT FOR DECOLONIZATION NS SCH ×2 (09:29→21:29)
[2019-05-10] MEDS: MULTIVIT-MINERALS ORAL LIQUID PEG SCH (09:30)
[2019-05-10] MEDS: HEPARIN NA (PORCINE) 5,000 UNITS/ML 1ML VIAL SQ SCH (09:30)
[2019-05-10] MEDS: oxyCODONE HCL 5 MG TABLET GT SCH (09:32)
[2019-05-10] MEDS: ASCORBIC ACID 500 MG TABLET (FP) GT SCH ×2 (09:33→21:31)
[2019-05-10] MEDS: FINASTERIDE 5 MG TABLET (FP) PO SCH (09:33)
[2019-05-10] MEDS: FAMOTIDINE 40 MG/5 ML ORAL SUSPENSION NGT SCH ×2 (09:33→21:59)
[2019-05-10] MEDS: SODIUM BICARBONATE 650 MG TABLET GT SCH (09:34)
--- NOTE | 2019-05-10 09:39 | PN ---
Progress Note, Physician - Current Medication List Current Medications: Active Medications Acetaminophen (Tylenol Oral Solution -) 650 mg GT Q4H PRN PRN Reason: FEVER Acetylcysteine (Mucomyst 20 Oral / Inh Use Only*) 400 mg NEB RBID BASSEM Albuterol Sulfate (Ventolin 0.083% Nebulizer Soln -) 1 amp NEB RQ4H [facility] Amino Acids (Prosource No Carb Liquid Pkt) 30 ml GT BID@0800,1730 [facility] Last Admin: 05/10/19 09:00 Dose: 30 ml Artificial Tears (Artificial Tears) 1 drop OU QID [facility] Last Admin: 05/10/19 09:29 Dose: 1 drp Ascorbic Acid (Vitamin C -) 500 mg GT BID [facility] Last Admin: 05/10/19 09:33 Dose: 500 mg Bacitracin (Bacitracin -) 1 applic TP BID [facility] Last Admin: 05/10/19 09:29 Dose: 1 applic Buspirone HCl (Buspar -) 5 mg PO TID PRN PRN Reason: ANXIETY Famotidine (Pepcid) 20 mg NGT BID [facility] Last Admin: 05/10/19 09:33 Dose: 20 mg Fentanyl (Duragesic 12mcg Patch -) 1 patch TD Q72H [facility] Last Admin: 05/09/19 10:07 Dose: 1 patch Finasteride (Proscar -) 5 mg PO DAILY [facility] Last Admin: 05/10/19 09:33 Dose: 5 mg Furosemide (Lasix Oral Solution -) 40 mg GT BID@0600,1400 [facility] Last Admin: 05/10/19 06:05 Dose: 40 mg Heparin Sodium (Porcine) (Heparin -) 5,000 unit SQ BID [facility] Last Admin: 05/10/19 09:30 Dose: 5,000 unit Dextrose/Lactated Ringer's (D5-Lr -) 1,000 mls @ 42 mls/hr IV ASDIR [facility] Last Admin: 05/10/19 09:04 Dose: 42 mls/hr Vancomycin HCl 1,250 mg/ (Dextrose) 250 mls @ 250 mls/2 hr IVPB Q24H [facility]; Protocol Latanoprost (Xalatan 0.005% Eye Drops -) 1 drop OU HS [facility] Last Admin: 05/09/19 21:46 Dose: 1 drop Metoclopramide HCl (Reglan Oral Solution -) 5 mg PEG TIDAC [facility] Last Admin: 05/10/19 06:06 Dose: 5 mg Metoprolol Tartrate (Lopressor -) 100 mg GT BID [facility] Last Admin: 05/09/19 21:42 Dose: 100 mg Miscellaneous (Duragesic Patch Waste) 1 each TD PRN PRN PRN Reason: PATCH REMOVAL Multivitamins/Minerals (Certavite-Antioxidant Liquid) 15 ml PEG DAILY [facility] Last Admin: 05/10/19 09:30 Dose: 15 ml Mupirocin (Bactroban Ointment (For Decolonization) -) 1 applic NS BID [facility] Stop: 05/13/19 21:59 Last Admin: 05/10/19 09:29 Dose: 1 applic Nystatin (Nystop Powder -) 1 applic TP TID [facility] Last Admin: 05/10/19 06:06 Dose: 1 applic Oxycodone HCl (Roxicodone -) 5 mg GT DAILY [facility] Last Admin: 05/10/19 09:32 Dose: 5 mg Sodium Bicarbonate (Sodium Bicarbonate -) 650 mg GT DAILY [facility] Last Admin: 05/10/19 09:34 Dose: 650 mg Sodium Chloride (Normal Saline For Inhalation -) 3 ml IH Q6H PRN PRN Reason: COUGH Verapamil HCl (Calan -) 40 mg PEG TID [facility] Last Admin: 05/10/19 06:05 Dose: 40 mg - Objective Vital Signs: Vital Signs Temperature 98.6 F 05/10/19 06:00 Pulse Rate 73 05/10/19 08:00 Respiratory Rate 21 H 05/10/19 08:23 Blood Pressure 81/70 L 05/10/19 08:00 O2 Sat by Pulse Oximetry (%) 98 05/09/19 09:00 Cardiovascular: Yes: Pulse Irregular, S1, S2 Respiratory: Yes: Mechanically Ventilated Gastrointestinal: Yes: Normal Bowel Sounds, Soft Labs: CBC, BMP 05/10/19 05:20 05/10/19 05:20 INR, PTT INR 1.47 (0.83-1.09) H 05/08/19 18:24 Assessment/Plan - Problems (1) Atrial flutter Assessment/Plan: -Cardiology consult -D/C Diltiazem -Start Verapamil 40 mg TID -Continue Lopressor 100 mg BID -tele monitor -AC contraindicated secondary to recent GI bleed Problems reviewed: Yes Code(s): I48.92 - UNSPECIFIED ATRIAL FLUTTER Qualifiers: Atrial flutter type: typical Qualified Code(s): I48.3 - Typical atrial flutter (2) Decubitus ulcer of sacral region, stage 4 Assessment/Plan: -Wound care -off loading -T&P Q2H Problems reviewed: Yes Code(s): L89.154 - PRESSURE ULCER OF SACRAL REGION, STAGE 4 (3) Functional quadriplegia Problems reviewed: Yes Code(s): R53.2 - FUNCTIONAL QUADRIPLEGIA (4) Acute and chronic respiratory failure Assessment/Plan: -mechanical vent -Pulmonary on board -Bronchodilators PRN Problems reviewed: Yes Code(s): J96.20 - ACUTE AND CHR RESP FAILURE, UNSP W HYPOXIA OR HYPERCAPNIA (5) Anemia Assessment/Plan: -chronic -Monitor trend -Avoid transfusion unless Hg <7.0 to avoid fluid overload Problems reviewed: Yes Code(s): D64.9 - ANEMIA, UNSPECIFIED (6) Urinary retention Assessment/Plan: -Huber catheter -Replaced on 05/08/19 Problems reviewed: Yes Code(s): R33.9 - RETENTION OF URINE, UNSPECIFIED
--- NOTE | 2019-05-10 10:00 | PN ---
Progress Note, Physician History of Present Illness: POORLY RESPONSIVE ON VENTILATOR AFEBRILE WBC ELEVATED URINE C/S NLF - Current Medication List Current Medications: Active Medications Acetaminophen (Tylenol Oral Solution -) 650 mg GT Q4H PRN PRN Reason: FEVER Acetylcysteine (Mucomyst 20 Oral / Inh Use Only*) 400 mg NEB RBID BASSEM Albuterol Sulfate (Ventolin 0.083% Nebulizer Soln -) 1 amp NEB RQ4H [facility] Amino Acids (Prosource No Carb Liquid Pkt) 30 ml GT BID@0800,1730 [facility] Last Admin: 05/10/19 09:00 Dose: 30 ml Artificial Tears (Artificial Tears) 1 drop OU QID [facility] Last Admin: 05/10/19 09:29 Dose: 1 drp Ascorbic Acid (Vitamin C -) 500 mg GT BID [facility] Last Admin: 05/10/19 09:33 Dose: 500 mg Bacitracin (Bacitracin -) 1 applic TP BID [facility] Last Admin: 05/10/19 09:29 Dose: 1 applic Buspirone HCl (Buspar -) 5 mg PO TID PRN PRN Reason: ANXIETY Famotidine (Pepcid) 20 mg NGT BID [facility] Last Admin: 05/10/19 09:33 Dose: 20 mg Fentanyl (Duragesic 12mcg Patch -) 1 patch TD Q72H [facility] Last Admin: 05/09/19 10:07 Dose: 1 patch Finasteride (Proscar -) 5 mg PO DAILY [facility] Last Admin: 05/10/19 09:33 Dose: 5 mg Furosemide (Lasix Oral Solution -) 40 mg GT BID@0600,1400 [facility] Last Admin: 05/10/19 06:05 Dose: 40 mg Heparin Sodium (Porcine) (Heparin -) 5,000 unit SQ BID [facility] Last Admin: 05/10/19 09:30 Dose: 5,000 unit Dextrose/Lactated Ringer's (D5-Lr -) 1,000 mls @ 42 mls/hr IV ASDIR [facility] Last Admin: 05/10/19 09:04 Dose: 42 mls/hr Vancomycin HCl 1,250 mg/ (Dextrose) 250 mls @ 250 mls/2 hr IVPB Q24H [facility]; Protocol Latanoprost (Xalatan 0.005% Eye Drops -) 1 drop OU HS [facility] Last Admin: 05/09/19 21:46 Dose: 1 drop Metoclopramide HCl (Reglan Oral Solution -) 5 mg PEG TIDAC [facility] Last Admin: 05/10/19 06:06 Dose: 5 mg Metoprolol Tartrate (Lopressor -) 100 mg GT BID [facility] Last Admin: 05/09/19 21:42 Dose: 100 mg Miscellaneous (Duragesic Patch Waste) 1 each TD PRN PRN PRN Reason: PATCH REMOVAL Multivitamins/Minerals (Certavite-Antioxidant Liquid) 15 ml PEG DAILY [facility] Last Admin: 05/10/19 09:30 Dose: 15 ml Mupirocin (Bactroban Ointment (For Decolonization) -) 1 applic NS BID [facility] Stop: 05/13/19 21:59 Last Admin: 05/10/19 09:29 Dose: 1 applic Nystatin (Nystop Powder -) 1 applic TP TID [facility] Last Admin: 05/10/19 06:06 Dose: 1 applic Oxycodone HCl (Roxicodone -) 5 mg GT DAILY [facility] Last Admin: 05/10/19 09:32 Dose: 5 mg Sodium Bicarbonate (Sodium Bicarbonate -) 650 mg GT DAILY [facility] Last Admin: 05/10/19 09:34 Dose: 650 mg Sodium Chloride (Normal Saline For Inhalation -) 3 ml IH Q6H PRN PRN Reason: COUGH Verapamil HCl (Calan -) 40 mg PEG TID [facility] Last Admin: 05/10/19 06:05 Dose: 40 mg - Objective Vital Signs: Vital Signs Temperature 98.6 F 05/10/19 06:00 Pulse Rate 73 05/10/19 08:00 Respiratory Rate 21 H 05/10/19 08:23 Blood Pressure 81/70 L 05/10/19 08:00 O2 Sat by Pulse Oximetry (%) 98 05/09/19 09:00 Constitutional: Yes: No Distress Eyes: Yes: Conjunctiva Clear Cardiovascular: Yes: Regular Rate and Rhythm, S1, S2 Respiratory: Yes: Mechanically Ventilated Gastrointestinal: Yes: Normal Bowel Sounds, Soft, Other (DISTENDED +GT). No: Tenderness Edema: Yes Labs: CBC, BMP 05/10/19 05:20 05/10/19 05:20 INR, PTT INR 1.47 (0.83-1.09) H 05/08/19 18:24 Assessment/Plan SEPSIS UTI R/O SEPSIS SECONDARY TO UTI LLL PNEUMONIA SACRAL DECUBITUS ULCER HX MDRO RENAL FAILURE CHRONIC RESP FAILURE AWAIT URINE C/S RESULT EMPIRIC ZOSYN
--- NOTE | 2019-05-10 11:06 | PN ---
Progress Note, Physician Chief Complaint: Intubated, comfortable tele af controlled VR History of Present Illness: 83 year old male with a PMHx of HTN, DM, CAD s/p CABG, ESRD, COPD, prostate cancer, s/p radiation, and s/p trach/vent/peg admitted from residential for coffee ground emesis. EGD 04/16/19 showed no source of active bleeding. [place] was sent [place] for tachycardia to 130's. Unable to give history. He was getting Cardizem via Gtube 60 bid. Echocardiogram 04/20/19: normal LV size and systolic function. LVEF 55%. Normal RV. Moderate LA and RA dilatation. Moderate MAC with mild MR. FCAV without stenosis. - Current Medication List Current Medications: Active Medications Acetaminophen (Tylenol Oral Solution -) 650 mg GT Q4H PRN PRN Reason: FEVER Acetylcysteine (Mucomyst 20 Oral / Inh Use Only*) 400 mg NEB RBID BASSEM Albuterol Sulfate (Ventolin 0.083% Nebulizer Soln -) 1 amp NEB RQ4H [facility] Amino Acids (Prosource No Carb Liquid Pkt) 30 ml GT BID@0800,1730 [facility] Last Admin: 05/10/19 09:00 Dose: 30 ml Artificial Tears (Artificial Tears) 1 drop OU QID [facility] Last Admin: 05/10/19 09:29 Dose: 1 drp Ascorbic Acid (Vitamin C -) 500 mg GT BID [facility] Last Admin: 05/10/19 09:33 Dose: 500 mg Bacitracin (Bacitracin -) 1 applic TP BID [facility] Last Admin: 05/10/19 09:29 Dose: 1 applic Buspirone HCl (Buspar -) 5 mg PO TID PRN PRN Reason: ANXIETY Famotidine (Pepcid) 20 mg NGT BID [facility] Last Admin: 05/10/19 09:33 Dose: 20 mg Fentanyl (Duragesic 12mcg Patch -) 1 patch TD Q72H [facility] Last Admin: 05/09/19 10:07 Dose: 1 patch Finasteride (Proscar -) 5 mg PO DAILY [facility] Last Admin: 05/10/19 09:33 Dose: 5 mg Furosemide (Lasix Oral Solution -) 40 mg GT BID@0600,1400 [facility] Last Admin: 05/10/19 06:05 Dose: 40 mg Heparin Sodium (Porcine) (Heparin -) 5,000 unit SQ BID [facility] Last Admin: 05/10/19 09:30 Dose: 5,000 unit Dextrose/Lactated Ringer's (D5-Lr -) 1,000 mls @ 42 mls/hr IV ASDIR [facility] Last Admin: 05/10/19 09:04 Dose: 42 mls/hr Piperacillin Sod/Tazobactam (Sod 3.375 gm/ Dextrose) 50 mls @ 100 mls/hr IVPB Q8H-IV [facility]; Protocol Latanoprost (Xalatan 0.005% Eye Drops -) 1 drop OU HS [facility] Last Admin: 05/09/19 21:46 Dose: 1 drop Metoclopramide HCl (Reglan Oral Solution -) 5 mg PEG TIDAC [facility] Last Admin: 05/10/19 06:06 Dose: 5 mg Metoprolol Tartrate (Lopressor -) 100 mg GT BID [facility] Last Admin: 05/09/19 21:42 Dose: 100 mg Miscellaneous (Duragesic Patch Waste) 1 each TD PRN PRN PRN Reason: PATCH REMOVAL Multivitamins/Minerals (Certavite-Antioxidant Liquid) 15 ml PEG DAILY [facility] Last Admin: 05/10/19 09:30 Dose: 15 ml Mupirocin (Bactroban Ointment (For Decolonization) -) 1 applic NS BID [facility] Stop: 05/13/19 21:59 Last Admin: 05/10/19 09:29 Dose: 1 applic Nystatin (Nystop Powder -) 1 applic TP TID [facility] Last Admin: 05/10/19 06:06 Dose: 1 applic Oxycodone HCl (Roxicodone -) 5 mg GT DAILY [facility] Last Admin: 05/10/19 09:32 Dose: 5 mg Sodium Bicarbonate (Sodium Bicarbonate -) 650 mg GT DAILY [facility] Last Admin: 05/10/19 09:34 Dose: 650 mg Sodium Chloride (Normal Saline For Inhalation -) 3 ml IH Q6H PRN PRN Reason: COUGH Verapamil HCl (Calan -) 40 mg PEG TID [facility] Last Admin: 05/10/19 06:05 Dose: 40 mg - Objective Vital Signs: Vital Signs Temperature 98.2 F 05/10/19 10:00 Pulse Rate 73 05/10/19 10:00 Respiratory Rate 20 05/10/19 10:00 Blood Pressure 89/55 L 05/10/19 10:00 O2 Sat by Pulse Oximetry (%) 98 05/09/19 09:00 Constitutional: Yes: No Distress, Calm Eyes: Yes: Conjunctiva Clear, EOM Intact HENT: Yes: Atraumatic, Normocephalic Neck: Yes: Trachea Midline Cardiovascular: Yes: Pulse Irregular Respiratory: Yes: Mechanically Ventilated Gastrointestinal: Yes: Normal Bowel Sounds, Soft Extremities: Yes: WNL Edema: No Labs: CBC, BMP 05/10/19 05:20 05/10/19 05:20 INR, PTT INR 1.47 (0.83-1.09) H 05/08/19 18:24 Assessment/Plan 83 year old male with a PMHx of HTN, DM, CAD s/p CABG, ESRD, COPD, prostate cancer, s/p radiation, and s/p trach/vent/peg admitted from residential for coffee ground emesis. EGD 04/16/19 showed no source of active bleeding. [place]cardia to 130's. Unable to give history. Echocardiogram 04/20/19: normal LV size and systolic function. LVEF 55%. Normal RV. Moderate LA and RA dilatation. Moderate MAC with mild MR. FCAV without stenosis. Atrial fibrillation -restart AC if no contraindications. -change dilt to verapamil 40 mg q8h -titrate as tolerated by BP and HR. -no need for repeat testing -limit beta agonists. -will follow with you.
[2019-05-10 11:52] VITALS: BMI 30.1
[2019-05-10] MEDS ORDERED: DEXTROSE 5%-WATER - 50 ML IVPB ONE ×2 (11:52→17:46)
[2019-05-10] MEDS ORDERED: PIPERACILLIN/TAZOBACTAM 3.375 GM VIAL IVPB ONE ×2 (11:52→17:45)
[2019-05-10] MEDS: PIPERACILLIN/TAZOB 3.375 GM 3.375 GM in DEXTROSE 5%-WATER - 50 ML IVPB SCH ×2 (11:54→18:22)
[2019-05-10 11:55] LABS: ANISOCYTOSIS 2+; MACROCYTOSIS 0; PLATELET ESTIMATE NORMAL; TARGET CELLS 1+
--- NOTE | 2019-05-10 12:23 | PN ---
Teaching Attending Note Name of Resident: Kenroy Johnson ATTENDING PHYSICIAN STATEMENT I saw and evaluated the patient. I reviewed the resident's note and discussed the case with the resident. I agree with the resident's findings and plan as documented. SUBJECTIVE: Pt seen and examined in the ICU. Vented, awake. Heart rates better controlled. OBJECTIVE: Vital Signs Period Temp Pulse Resp BP Sys/Kang Pulse Ox Last 24 Hr 98 F-99.1 F 73-101 17-22 81-131/55-70 Intake & Output 05/07/19 05/08/19 05/09/19 05/10/19 23:59 23:59 23:59 23:59 Intake Total 840 654 Output Total 750 900 Balance 90 -246 Weight 102.965 kg 91.9 kg 92.533 kg Gen: vented, awake Heart: irregular Lung: scattered rhonchi Abd: soft, nontender Ext: + edema CBC, BMP 05/10/19 05:20 05/10/19 05:20 Active Medications Acetaminophen (Tylenol Oral Solution -) 650 mg GT Q4H PRN PRN Reason: FEVER Acetylcysteine (Mucomyst 20 Oral / Inh Use Only*) 400 mg NEB RBID [facility] Albuterol Sulfate (Ventolin 0.083% Nebulizer Soln -) 1 amp NEB RQ4H [facility] Last Admin: 05/10/19 11:45 Dose: 1 amp Amino Acids (Prosource No Carb Liquid Pkt) 30 ml GT BID@0800,1730 [facility] Last Admin: 05/10/19 09:00 Dose: 30 ml Artificial Tears (Artificial Tears) 1 drop OU QID [facility] Last Admin: 05/10/19 09:29 Dose: 1 drp Ascorbic Acid (Vitamin C -) 500 mg GT BID [facility] Last Admin: 05/10/19 09:33 Dose: 500 mg Bacitracin (Bacitracin -) 1 applic TP BID [facility] Last Admin: 05/10/19 09:29 Dose: 1 applic Buspirone HCl (Buspar -) 5 mg PO TID PRN PRN Reason: ANXIETY Famotidine (Pepcid) 20 mg NGT BID [facility] Last Admin: 05/10/19 09:33 Dose: 20 mg Fentanyl (Duragesic 12mcg Patch -) 1 patch TD Q72H [facility] Last Admin: 01/19/20 10:07 Dose: 1 patch Finasteride (Proscar -) 5 mg PO DAILY [facility] Last Admin: 05/10/19 09:33 Dose: 5 mg Furosemide (Lasix Oral Solution -) 40 mg GT BID@0600,1400 [facility] Last Admin: 05/10/19 06:05 Dose: 40 mg Heparin Sodium (Porcine) (Heparin -) 5,000 unit SQ BID [facility] Last Admin: 05/10/19 09:30 Dose: 5,000 unit Dextrose/Lactated Ringer's (D5-Lr -) 1,000 mls @ 42 mls/hr IV ASDIR [facility] Last Admin: 05/10/19 09:04 Dose: 42 mls/hr Piperacillin Sod/Tazobactam (Sod 3.375 gm/ Dextrose) 50 mls @ 100 mls/hr IVPB Q8H-IV [facility]; Protocol Last Admin: 05/10/19 11:54 Dose: 100 mls/hr Latanoprost (Xalatan 0.005% Eye Drops -) 1 drop OU HS [facility] Last Admin: 05/09/19 21:46 Dose: 1 drop Metoclopramide HCl (Reglan Oral Solution -) 5 mg PEG TIDAC [facility] Last Admin: 05/10/19 11:50 Dose: 5 mg Metoprolol Tartrate (Lopressor -) 100 mg GT BID [facility] Last Admin: 05/09/19 21:42 Dose: 100 mg Miscellaneous (Duragesic Patch Waste) 1 each TD PRN PRN PRN Reason: PATCH REMOVAL Multivitamins/Minerals (Certavite-Antioxidant Liquid) 15 ml PEG DAILY [facility] Last Admin: 05/10/19 09:30 Dose: 15 ml Mupirocin (Bactroban Ointment (For Decolonization) -) 1 applic NS BID [facility] Stop: 05/13/19 21:59 Last Admin: 05/10/19 09:29 Dose: 1 applic Nystatin (Nystop Powder -) 1 applic TP TID [facility] Last Admin: 05/10/19 06:06 Dose: 1 applic Oxycodone HCl (Roxicodone -) 5 mg GT DAILY [facility] Last Admin: 05/10/19 09:32 Dose: 5 mg Sodium Bicarbonate (Sodium Bicarbonate -) 650 mg GT DAILY [facility] Last Admin: 05/10/19 09:34 Dose: 650 mg Sodium Chloride (Normal Saline For Inhalation -) 3 ml IH Q6H PRN PRN Reason: COUGH Verapamil HCl (Calan -) 40 mg PEG TID [facility] Last Admin: 05/10/19 06:05 Dose: 40 mg ASSESSMENT AND PLAN: Chronic Respiratory Failure Atrial Fibrillation with RVR UTI Sacral Decubitus Ulcer COPD CAD s/p CABG CKD Anemia - rate control - continue anticoagulation - antibiotics per ID - f/u cultures - volume assist control - inhaled bronchodilators - enteral feeds - DVT/GI prophylaxis - can monitor on vent floor
--- NOTE | 2019-05-10 14:06 | PN ---
Physical Exam: SUBJECTIVE: Patient seen and examined in the morning. No acute events overnight, no events on cardiac monitoring. Patient shakes his head no to questions regarding chest pain, abdominal pain, and shortness of breath. OBJECTIVE: Vital Signs Period Temp Pulse Resp BP Sys/Kang Pulse Ox Last 24 Hr 98 F-99.1 F 73-101 17-22 81-131/55-70 GENERAL: The patient is awake, alert and in no acute distress. HEAD: Trached to vent, PERRLA EYES: PERRL, extraocular movements intact, sclera anicteric, conjunctiva clear. No ptosis. LUNGS: Scattered rhonchi. HEART: Irregularly, irregular. Systolic murmur 3/6 ABDOMEN: Soft, nontender. Peg tube in place. EXTREMITIES: small hematomas present b/l UE & LE. 2+ pitting edema b/l SKIN: chronic sacral ulcer. Laboratory Results - last 24 hr 05/08/19 05/09/19 05/09/19 20:08 18:20 20:24 WBC 12.6 H RBC 2.56 L Hgb 8.1 L Hct 25.4 L MCV 99.2 H MCH 31.6 MCHC 31.9 L RDW 27.6 H Plt Count 201 MPV 9.3 Absolute Neuts (auto) 11.8 H Total Counted 100 Neutrophils % 93.4 H Neutrophils % (Manual) 87.0 H Band Neutrophils % 8.0 Lymphocytes % 3.0 L D Lymphocytes % (Manual) 2.0 L D Monocytes % 3.0 L Monocytes % (Manual) 3 L Eosinophils % 0.5 Eosinophils % (Manual) Basophils % 0.1 Basophils % (Manual) Myelocytes % (Man) Promyelocytes % (Man) Blast Cells % (Manual) Nucleated RBC % 0 Metamyelocytes Differential Comment Man diff performed Hypochromia Platelet Estimate Adequate Platelet Comment Slide scanned. Polychromasia 1+ Poikilocytosis Anisocytosis 2+ Microcytosis 1+ Macrocytosis 1+ Spherocytes Target Cells Sodium Potassium Chloride Carbon Dioxide Anion Gap BUN Creatinine Est GFR (CKD-EPI)AfAm Est GFR (CKD-EPI)NonAf Random Glucose Calcium Phosphorus Magnesium Total Bilirubin AST ALT Alkaline Phosphatase Total Protein Albumin Urine Color Yellow Urine Appearance Turbid Urine pH 5.5 Ur Specific [place] 1.012 Urine Protein 1+ H Urine Glucose (UA) Negative Urine Ketones Negative Urine Blood 2+ H Urine Nitrite Negative Urine Bilirubin Negative Urine Urobilinogen 0.2 Ur Leukocyte Esterase 3+ H Urine WBC (Auto) 1290 Urine RBC (Auto) 46.7 Urine Casts (Auto) 42 U Epithel Cells (Auto) 7.1 Urine Bacteria (Auto) 127.5 Urine Yeast (Auto) Moderate Blood Type O NEGATIVE Antibody Screen Negative Crossmatch See Detail 05/10/19 05/10/19 05:20 05:20 WBC 12.4 H RBC 2.48 L Hgb 7.9 L Hct 25.2 L MCV 101.8 H MCH 31.8 MCHC 31.3 L RDW 27.7 H Plt Count 201 MPV 9.8 Absolute Neuts (auto) 11.5 H Total Counted Neutrophils % 92.8 H Neutrophils % (Manual) 77.1 Band Neutrophils % 16.7 Lymphocytes % 3.8 L D Lymphocytes % (Manual) 4.2 L D Monocytes % 2.2 L Monocytes % (Manual) 1 L Eosinophils % 0.8 Eosinophils % (Manual) 0.0 D Basophils % 0.4 D Basophils % (Manual) 0.0 Myelocytes % (Man) 0 Promyelocytes % (Man) 0 Blast Cells % (Manual) 0 Nucleated RBC % 0 Metamyelocytes 0 Differential Comment Hypochromia 0 Platelet Estimate Normal Platelet Comment Present Polychromasia 1+ Poikilocytosis 1+ Anisocytosis 2+ Microcytosis 2+ Macrocytosis 0 Spherocytes 1+ Target Cells 1+ Sodium 144 Potassium 4.4 Chloride 110 H Carbon Dioxide 28 Anion Gap 6 L BUN 53.6 H Creatinine 1.3 Est GFR (CKD-EPI)AfAm 58.89 Est GFR (CKD-EPI)NonAf 50.81 Random Glucose 72 L Calcium 7.5 L Phosphorus 3.1 Magnesium 1.9 Total Bilirubin 1.2 H AST 33 ALT 31 Alkaline Phosphatase 202 H Total Protein 6.0 L Albumin 1.0 L Urine Color Urine Appearance Urine pH Ur Specific [place] Urine Protein Urine Glucose (UA) Urine Ketones Urine Blood Urine Nitrite Urine Bilirubin Urine Urobilinogen Ur Leukocyte Esterase Urine WBC (Auto) Urine RBC (Auto) Urine Casts (Auto) U Epithel Cells (Auto) Urine Bacteria (Auto) Urine Yeast (Auto) Blood Type Antibody Screen Crossmatch Active Medications Generic Name Dose Route Start Last Admin Trade Name Freq PRN Reason Stop Dose Admin Acetaminophen 650 mg 05/09/19 08:43 Tylenol Oral Solution - GT Q4H PRN FEVER Acetylcysteine 400 mg 05/09/19 20:00 Mucomyst 20 Oral / Inh Use Only* NEB RBID BASSEM Albuterol Sulfate 1 amp 05/10/19 06:35 05/10/19 11:45 Ventolin 0.083% Nebulizer Soln - NEB 1 amp RQ4H BASSEM Administration Amino Acids 30 ml 05/09/19 17:30 05/10/19 09:00 Prosource No Carb Liquid Pkt GT 30 ml BID@0800,1730 BASSEM Administration Artificial Tears 1 drop 05/09/19 10:00 05/10/19 09:29 Artificial Tears OU 1 drp QID BASSEM Administration Ascorbic Acid 500 mg 05/09/19 10:00 05/10/19 09:33 Vitamin C - GT 500 mg BID BASSEM Administration Bacitracin 1 applic 05/09/19 10:00 05/10/19 09:29 Bacitracin - TP 1 applic BID BASSEM Administration Buspirone HCl 5 mg 05/09/19 08:43 Buspar - PO TID PRN ANXIETY Famotidine 20 mg 05/09/19 10:00 05/10/19 09:33 Pepcid NGT 20 mg BID BASSEM Administration Fentanyl 1 patch 05/09/19 10:15 05/09/19 10:07 Duragesic 12mcg Patch - TD 1 patch Q72H BASSEM Administration Finasteride 5 mg 05/09/19 10:00 05/10/19 09:33 Proscar - PO 5 mg DAILY BASSEM Administration Furosemide 40 mg 05/09/19 14:00 05/10/19 06:05 Lasix Oral Solution - GT 40 mg BID@0600,1400 BASSEM Administration Heparin Sodium (Porcine) 5,000 unit 05/08/19 22:00 05/10/19 09:30 Heparin - SQ 5,000 unit BID BASSEM Administration Dextrose/Lactated Ringer's 1,000 mls @ 42 mls/hr 05/09/19 06:30 05/10/19 0 9:04 D5-Lr - IV 42 mls/hr ASDIR BASSEM Administration Piperacillin Sod/Tazobactam 50 mls @ 100 mls/hr 05/10/19 10:15 05/10/19 11:54 Sod 3.375 gm/ Dextrose IVPB 100 mls/hr Q8H-IV BASSEM Administration Protocol Latanoprost 1 drop 05/09/19 22:00 05/09/19 21:46 Xalatan 0.005% Eye Drops - OU 1 drop HS BASSEM Administration Metoclopramide HCl 5 mg 05/09/19 11:00 05/10/19 11:50 Reglan Oral Solution - PEG 5 mg TIDAC BASSEM Administration Metoprolol Tartrate 100 mg 05/09/19 00:15 05/09/19 21:42 Lopressor - GT 100 mg BID BASSEM Administration Miscellaneous 1 each 05/09/19 09:54 Duragesic Patch Waste TD PRN PRN PATCH REMOVAL Multivitamins/Minerals 15 ml 05/09/19 10:00 05/10/19 09:30 Certavite-Antioxidant Liquid PEG 15 ml DAILY BASSEM Administration Mupirocin 1 applic 05/08/19 22:00 05/10/19 09:29 Bactroban Ointment (For Decolonization) - NS 05/13/19 21:59 1 applic BID BASSEM Administration Nystatin 1 applic 05/09/19 14:00 05/10/19 06:06 Nystop Powder - TP 1 applic TID BASSEM Administration Oxycodone HCl 5 mg 05/09/19 10:00 05/10/19 09:32 Roxicodone - GT 5 mg DAILY BASSEM Administration Sodium Bicarbonate 650 mg 05/09/19 10:00 05/10/19 09:34 Sodium Bicarbonate - GT 650 mg DAILY BASSEM Administration Sodium Chloride 3 ml 05/09/19 08:43 Normal Saline For Inhalation - IH Q6H PRN COUGH Verapamil HCl 40 mg 05/09/19 14:00 05/10/19 06:05 Calan - PEG 40 mg TID BASSEM Administration ASSESSMENT/PLAN: 83 M PMH CABG, HTN, HLD, ESRD (b/l nephrostomy tubes removed 04/28/2019), COPD s/p trach/vent, PEG tube, DM, anemia presented for tachycardia. 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 -Lasix 40 mg GT BID -Cardiology consulted, appreciate recs Pulmonary -Chronic resp failure s/p trach & vent dependent: 400/12/5/40% -maintain o2 sat >90% GI -On tube feeds -No acute events -Continue monitoring -ID -Hx of sputum MRSA and ESBL from nephrostomy tube in prior admission -Afebrile -Urine culture shows non lactose fermenting gram negative bacilli -Vancomycin and gentamicin -bryant changed -ID consulted, appreciate recs Renal -ESRD -S/p bilateral nephrostomy tube by Urology 04/28/2019 -Finasteride, lasix Heme/Onc -Hgb 7.9 s/p 1 unit PRBC -1 units PRBC today -Holding A/C for potential bleed -Monitor H&H DVT: SCDs Lines: On chronic tracheostomy. Bryant changed on 05/08. No central line. Dispo: Transfer to Med/Surg Visit type - Emergency Visit Emergency Visit: Yes ED Registration Date: 05/08/19 Care time: The patient presented to the Emergency Department on the above date and was hospitalized for further evaluation of their emergent condition. - New Patient This patient is new to me today: Yes Date on this admission: 05/10/19 - Critical Care Critical Care patient: Yes Total Critical Care Time (in minutes): 45 Critical Care Statement: The care of this patient involved high complexity decision making to prevent further life threatening deterioration of the patient's condition and/or to evaluate & treat vital organ system(s) failure or risk of failure. ATTENDING PHYSICIAN STATEMENT I saw and evaluated the patient. I reviewed the resident's note and discussed the case with the resident. I agree with the resident's findings and plan as documented. SUBJECTIVE: OBJECTIVE: ASSESSMENT AND PLAN:
[2019-05-10] MEDS: METOPROLOL TARTRATE 50 MG TABLET (FP) GT SCH ×2 (16:31→23:50)
[2019-05-10] MEDS ORDERED: ACETYLCYSTEINE 20% 200MG/ML 4 ML VIAL *FOR ORAL / INH USE ONLY NEB SCH (20:00)
[2019-05-10] MEDS: ACETYLCYSTEINE 20% 200MG/ML 4 ML VIAL *FOR ORAL / INH USE ONLY NEB SCH (20:44)
[2019-05-10] MEDS: LATANOPROST 0.005% OPHTH SOLN 2.5ML BOTTLE OU SCH (21:31)
[2019-05-10 21:46] LABS: BASO % 0.1 % (0-2.0); HEMATOCRIT 30.5 % (35.4-49); HEMOGLOBIN 10.1 GM/dL (11.7-16.9); LYMPH % 4.1 % (8-40); MCH 32.2 pg (25.7-33.7); MCHC 33.2 g/dl (32.0-35.9); MEAN CELL VOLUME 96.9 fl (80-96); MEAN PLT VOLUME 9.4 fl (7.5-11.1); MONO % 2.6 % (3.8-10.2); NEUT % 92.2 % (42.8-82.8); PLATELET COUNT 198 K/MM3 (134-434); RBC 3.15 M/mm3 (4.00-5.60); WHITE BLOOD COUNT 10.8 K/mm3 (4.0-10.0)
[2019-05-10 22:45] LABS: ANISOCYTOSIS 2+; PLATELET ESTIMATE ADEQUATE; TARGET CELLS FEW
[2019-05-11] MEDS: ALBUTEROL SO4 0.083% IH SOL 2.5 MG/3 ML VIAL.NEB. NEB SCH ×2 (00:37→04:38)
[2019-05-11] MEDS ORDERED: ACETYLCYSTEINE 20% 200MG/ML 4 ML VIAL *FOR ORAL / INH USE ONLY NEB SCH (00:55)
[2019-05-11] MEDS ORDERED: PIPERACILLIN/TAZOBACTAM 3.375 GM VIAL IVPB ONE ×3 (01:44→17:45)
[2019-05-11] MEDS ORDERED: DEXTROSE 5%-WATER - 50 ML IVPB ONE ×3 (01:44→17:46)
[2019-05-11] MEDS: PIPERACILLIN/TAZOB 3.375 GM 3.375 GM in DEXTROSE 5%-WATER - 50 ML IVPB SCH ×3 (01:47→17:54)
[2019-05-11] MEDS ORDERED: PT OWN MED DRAWER 7, Y5N ONE ×5 (05:54→21:41)
[2019-05-11] MEDS: METOCLOPRAMIDE HCL 5 MG/5 ML UNIT DOSE CUP PEG SCH ×3 (06:08→16:53)
[2019-05-11] MEDS: VERAPAMIL HCL 40 MG TABLET PEG SCH (06:09)
[2019-05-11] MEDS: NYSTATIN POWDER 100,000 UNITS/GM - 15 GM TOPICAL POWDER TP SCH ×3 (06:10→21:39)
[2019-05-11] MEDS: FUROSEMIDE 40 MG/5 ML UNIT-DOSE CUP GT SCH ×2 (06:10→14:16)
[2019-05-11 06:13] LABS: BASO % 0.3 % (0-2.0); EOS % 1.2 % (0-4.5); HEMATOCRIT 30.8 % (35.4-49); HEMOGLOBIN 10.1 GM/dL (11.7-16.9); LYMPH % 3.6 % (8-40); MCH 31.7 pg (25.7-33.7); MCHC 32.9 g/dl (32.0-35.9); MEAN CELL VOLUME 96.4 fl (80-96); MEAN PLT VOLUME 9.2 fl (7.5-11.1); MONO % 2.8 % (3.8-10.2); NEUT % 92.1 % (42.8-82.8); PLATELET COUNT 207 K/MM3 (134-434); RBC 3.19 M/mm3 (4.00-5.60); RDW 23.3 % (11.9-15.9); WHITE BLOOD COUNT 12.6 K/mm3 (4.0-10.0)
[2019-05-11 06:40] LABS: BILIRUBIN,TOTAL 0.9 mg/dL (0.2-1); BLOOD UREA NITROGEN 50.4 mg/dL (7-18); CALCIUM 7.5 mg/dL (8.5-10.1); CREATININE 1.5 mg/dL (0.55-1.3); MAGNESIUM 1.9 mg/dL (1.8-2.4); PHOSPHOROUS 3.7 mg/dL (2.5-4.9); POTASSIUM 4.2 mmol/L (3.5-5.1); TOT PROT 6.3 g/dl (6.4-8.2)
--- NOTE | 2019-05-11 07:06 | PN ---
Physical Exam: SUBJECTIVE: Patient seen and examined NAEON. Patient awake and alert, responds to commands appropriately. Denies being in pain. OBJECTIVE: Vital Signs Period Temp Pulse Resp BP Sys/Kang Pulse Ox Last 24 Hr 98.1 F-98.6 F 73-112 15-27 81-99/46-70 95-97 GENERAL: The patient is awake, alert and in no acute distress, non-verbal but follows commands HEENT: trached to vent, PERRL, extraocular movements intact, sclera anicteric, conjunctiva clear. No ptosis LUNGS: diffuse rhonchi HEART: Normal rate, irregularly irregular, systolic murmur ABDOMEN: Soft, nontender. Peg tube in place. EXTREMITIES: small hematomas present at b/l UE & LE. 2+ pitting edema b/l SKIN: chronic Stage 4 sacral ulcer Laboratory Results - last 24 hr 05/08/19 05/10/19 05/10/19 20:08 05:20 05:20 WBC 12.4 H RBC 2.48 L Hgb 7.9 L Hct 25.2 L MCV 101.8 H MCH 31.8 MCHC 31.3 L RDW 27.7 H Plt Count 201 MPV 9.8 Absolute Neuts (auto) 11.5 H Neutrophils % 92.8 H Neutrophils % (Manual) 77.1 Band Neutrophils % 16.7 Lymphocytes % 3.8 L D Lymphocytes % (Manual) 4.2 L D Monocytes % 2.2 L Monocytes % (Manual) 1 L Eosinophils % 0.8 Eosinophils % (Manual) 0.0 D Basophils % 0.4 D Basophils % (Manual) 0.0 Myelocytes % (Man) 0 Promyelocytes % (Man) 0 Blast Cells % (Manual) 0 Nucleated RBC % 0 Metamyelocytes 0 Hypochromia 0 Platelet Estimate Normal Platelet Comment Present Polychromasia 1+ Poikilocytosis 1+ Anisocytosis 2+ Microcytosis 2+ Macrocytosis 0 Spherocytes 1+ Target Cells 1+ Sodium 144 Potassium 4.4 Chloride 110 H Carbon Dioxide 28 Anion Gap 6 L BUN 53.6 H Creatinine 1.3 Est GFR (CKD-EPI)AfAm 58.89 Est GFR (CKD-EPI)NonAf 50.81 Random Glucose 72 L Calcium 7.5 L Phosphorus 3.1 Magnesium 1.9 Total Bilirubin 1.2 H AST 33 ALT 31 Alkaline Phosphatase 202 H Total Protein 6.0 L Albumin 1.0 L Blood Type O NEGATIVE Antibody Screen Negative Crossmatch See Detail 05/10/19 05/11/19 05/11/19 21:15 05:33 05:33 WBC 10.8 H 12.6 H RBC 3.15 L 3.19 L Hgb 10.1 L 10.1 L Hct 30.5 L D 30.8 L MCV 96.9 H 96.4 H MCH 32.2 31.7 MCHC 33.2 32.9 RDW 23.0 H 23.3 H Plt Count 198 207 MPV 9.4 9.2 Absolute Neuts (auto) 10.0 H 11.6 H Neutrophils % 92.2 H 92.1 H Neutrophils % (Manual) 76.0 Band Neutrophils % 20.0 Lymphocytes % 4.1 L 3.6 L Lymphocytes % (Manual) 3.0 L D Monocytes % 2.6 L 2.8 L Monocytes % (Manual) 1 L Eosinophils % 1.0 1.2 Eosinophils % (Manual) 0.0 Basophils % 0.1 0.3 Basophils % (Manual) 0.0 Myelocytes % (Man) Promyelocytes % (Man) Blast Cells % (Manual) Nucleated RBC % 0 0 Metamyelocytes Hypochromia Platelet Estimate Adequate Platelet Comment Polychromasia Poikilocytosis Anisocytosis 2+ Microcytosis Macrocytosis Spherocytes Target Cells Few Sodium 143 Potassium 4.2 Chloride 110 H Carbon Dioxide 27 Anion Gap 6 L BUN 50.4 H Creatinine 1.5 H Est GFR (CKD-EPI)AfAm 49.54 Est GFR (CKD-EPI)NonAf 42.74 Random Glucose 92 Calcium 7.5 L Phosphorus 3.7 Magnesium 1.9 Total Bilirubin 0.9 AST 39 H ALT 28 Alkaline Phosphatase 203 H Total Protein 6.3 L Albumin 1.0 L Blood Type Antibody Screen Crossmatch Active Medications Generic Name Dose Route Start Last Admin Trade Name Freq PRN Reason Stop Dose Admin Acetaminophen 650 mg 05/09/19 08:43 Tylenol Oral Solution - GT Q4H PRN FEVER Acetylcysteine 400 mg 05/10/19 20:00 05/10/19 20:44 Mucomyst 20 Oral / Inh Use Only* NEB 400 mg RBID BASSEM Administration Albuterol Sulfate 1 amp 05/10/19 06:35 01/21/20 04:38 Ventolin 0.083% Nebulizer Soln - NEB 1 amp RQ4H BASSEM Administration Amino Acids 30 ml 05/09/19 17:30 05/10/19 18:21 Prosource No Carb Liquid Pkt GT 30 ml BID@0800,1730 BASSEM Administration Artificial Tears 1 drop 05/09/19 10:00 05/10/19 21:31 Artificial Tears OU 1 drp QID BASSEM Administration Ascorbic Acid 500 mg 05/09/19 10:00 05/10/19 21:31 Vitamin C - GT 500 mg BID BASSEM Administration Bacitracin 1 applic 05/09/19 10:00 05/10/19 21:29 Bacitracin - TP 1 applic BID BASSEM Administration Buspirone HCl 5 mg 05/09/19 08:43 Buspar - PO TID PRN ANXIETY Famotidine 20 mg 05/09/19 10:00 05/10/19 21:59 Pepcid NGT 20 mg BID BASSEM Administration Fentanyl 1 patch 05/09/19 10:15 05/09/19 10:07 Duragesic 12mcg Patch - TD 1 patch Q72H BASSEM Administration Finasteride 5 mg 05/09/19 10:00 05/10/19 09:33 Proscar - PO 5 mg DAILY BASSEM Administration Furosemide 40 mg 05/09/19 14:00 05/11/19 06:10 Lasix Oral Solution - GT 40 mg BID@0600,1400 BASSEM Administration Heparin Sodium (Porcine) 5,000 unit 05/08/19 22:00 05/10/19 09:30 Heparin - SQ 5,000 unit BID BASSEM Administration Dextrose/Lactated Ringer's 1,000 mls @ 42 mls/hr 05/09/19 06:30 05/10/19 09:04 D5-Lr - IV 42 mls/hr ASDIR BASSEM Administration Piperacillin Sod/Tazobactam 50 mls @ 100 mls/hr 05/10/19 10:15 05/11/19 01:47 Sod 3.375 gm/ Dextrose IVPB 100 mls/hr Q8H-IV BASSEM Administration Protocol Latanoprost 1 drop 05/09/19 22:00 05/10/19 21:31 Xalatan 0.005% Eye Drops - OU 1 drop HS BASSEM Administration Metoclopramide HCl 5 mg 05/09/19 11:00 05/11/19 06:08 Reglan Oral Solution - PEG 5 mg TIDAC BASSEM Administration Metoprolol Tartrate 100 mg 05/09/19 00:15 05/10/19 23:50 Lopressor - GT Not Given BID [facility] Miscellaneous 1 each 05/09/19 09:54 Duragesic Patch Waste TD PRN PRN PATCH REMOVAL Multivitamins/Minerals 15 ml 05/09/19 10:00 05/10/19 09:30 Certavite-Antioxidant Liquid PEG 15 ml DAILY BASSEM Administration Mupirocin 1 applic 05/08/19 22:00 05/10/19 21:29 Bactroban Ointment (For Decolonization) - NS 05/13/19 21:59 1 applic BID BASSEM Administration Nystatin 1 applic 05/09/19 14:00 05/11/19 06:10 Nystop Powder - TP 1 applic TID BASSEM Administration Oxycodone HCl 5 mg 05/09/19 10:00 05/10/19 09:32 Roxicodone - GT 5 mg DAILY BASSEM Administration Sodium Bicarbonate 650 mg 05/09/19 10:00 05/10/19 09:34 Sodium Bicarbonate - GT 650 mg DAILY BASSEM Administration Sodium Chloride 3 ml 05/09/19 08:43 Normal Saline For Inhalation - IH Q6H PRN COUGH Verapamil HCl 40 mg 05/09/19 14:00 05/11/19 06:09 Calan - PEG 40 mg TID BASSEM Administration ASSESSMENT/PLAN: 83 yo M PMH CABG, HTN, HLD, ESRD (b/l nephrostomy tubes removed 04/28/2019), COPD s/p trach/vent, PEG tube, DM, anemia, initially presented for tachycardia which has since resolved. 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 beta blockers - Lasix 40 mg GT BID - Cardiology consulted, appreciate recs - ctm Pulmonary - Chronic respiratory failure s/p trach - Vent dependent: 400/12/5/40% - Goal O2 sat >90% - ctm GI - On tube feeds - ctm -ID - hx sputum MRSA - hx ESBL from nephrostomy tube in prior admission - afebrile throughout current admission - urine culture: non lactose fermenting gram negative bacilli - received vancomycin and gentamicin in the ED - currently on piptazo q8hr - current Huber in place since 05/08/2019 - ID consulted, appreciate recs Renal - ESRD - s/p bilateral nephrostomy tubes by urology 04/28/2019 - urine with 2+ blood, positive leuks, growing non lactose fermenting gram negative bacilli - finasteride, lasix - ctm Heme/Onc - initial Hgb 7.9 s/p 1 unit PRBC - 2 units pRBCs transfused yesterday - currently stable Hgb at 10.1 from 10.1 - holding anticoagulation for now due to possible bleed - Monitor H&H DVT: SCDs Lines: On chronic tracheostomy. Huber changed on 05/08. No central line. Dispo: Transfer to Med/Surg Visit type - Emergency Visit Emergency Visit: Yes ED Registration Date: 05/08/19 Care time: The patient presented to the Emergency Department on the above date and was hospitalized for further evaluation of their emergent condition. - New Patient This patient is new to me today: No - Critical Care Critical Care patient: Yes Total Critical Care Time (in minutes): 45 Critical Care Statement: The care of this patient involved high complexity decision making to prevent further life threatening deterioration of the patient's condition and/or to evaluate & treat vital organ system(s) failure or risk of failure. ATTENDING PHYSICIAN STATEMENT I saw and evaluated the patient. I reviewed the resident's note and discussed the case with the resident. I agree with the resident's findings and plan as documented. SUBJECTIVE: OBJECTIVE: ASSESSMENT AND PLAN:
[2019-05-11] MEDS: AMINO ACIDS/PROTEIN HYDROLYS 30 ML LIQUID.PKT GT SCH ×2 (09:23→16:53)
[2019-05-11] MEDS: ACETYLCYSTEINE 20% 200MG/ML 4 ML VIAL *FOR ORAL / INH USE ONLY NEB SCH ×2 (09:39→20:58)
[2019-05-11 10:11] LABS: ANISOCYTOSIS 1+; PLATELET ESTIMATE ADEQUATE
[2019-05-11] MEDS: DEXTROSE 5%-LACTATED RINGERS 1,000 ML IV SCH (10:24)
[2019-05-11] MEDS: METOPROLOL TARTRATE 50 MG TABLET (FP) GT SCH (10:26)
[2019-05-11] MEDS: oxyCODONE HCL 5 MG TABLET GT SCH (10:26)
[2019-05-11] MEDS: ASCORBIC ACID 500 MG TABLET (FP) GT SCH ×2 (10:27→21:39)
[2019-05-11] MEDS: SODIUM BICARBONATE 650 MG TABLET GT SCH (10:27)
[2019-05-11] MEDS: FINASTERIDE 5 MG TABLET (FP) PO SCH (10:27)
[2019-05-11] MEDS: FAMOTIDINE 40 MG/5 ML ORAL SUSPENSION NGT SCH ×2 (10:30→21:42)
[2019-05-11] MEDS: MULTIVIT-MINERALS ORAL LIQUID PEG SCH (10:32)
[2019-05-11] MEDS: MUPIROCIN 2% TOPICAL OINTMENT FOR DECOLONIZATION NS SCH ×2 (10:36→21:39)
[2019-05-11] MEDS: BACITRACIN 15 GM TUBE TOPICAL OINTMENT TP SCH ×2 (10:37→21:39)
[2019-05-11] MEDS: ARTIFICIAL TEARS (POLYVINYL ALCOHOL) OPTH DROPS OU SCH ×4 (10:38→21:39)
--- NOTE | 2019-05-11 12:01 | PN ---
Progress Note, Physician History of Present Illness: seen and examined in nad. awake and responsive. no overnight events. - Current Medication List Current Medications: Active Medications Acetaminophen (Tylenol Oral Solution -) 650 mg GT Q4H PRN PRN Reason: FEVER Acetylcysteine (Mucomyst 20 Oral / Inh Use Only*) 400 mg NEB RBID [facility] Last Admin: 05/11/19 09:39 Dose: 400 mg Amino Acids (Prosource No Carb Liquid Pkt) 30 ml GT BID@0800,1730 [facility] Last Admin: 05/11/19 09:23 Dose: 30 ml Artificial Tears (Artificial Tears) 1 drop OU QID [facility] Last Admin: 05/11/19 10:38 Dose: 1 drp Ascorbic Acid (Vitamin C -) 500 mg GT BID [facility] Last Admin: 05/11/19 10:27 Dose: 500 mg Bacitracin (Bacitracin -) 1 applic TP BID [facility] Last Admin: 05/11/19 10:37 Dose: 1 applic Buspirone HCl (Buspar -) 5 mg PO TID PRN PRN Reason: ANXIETY Famotidine (Pepcid) 20 mg NGT BID [facility] Last Admin: 05/11/19 10:30 Dose: 20 mg Fentanyl (Duragesic 12mcg Patch -) 1 patch TD Q72H [facility] Last Admin: 05/09/19 10:07 Dose: 1 patch Finasteride (Proscar -) 5 mg PO DAILY [facility] Last Admin: 05/11/19 10:27 Dose: 5 mg Furosemide (Lasix Oral Solution -) 40 mg GT BID@0600,1400 [facility] Last Admin: 05/11/19 06:10 Dose: 40 mg Heparin Sodium (Porcine) (Heparin -) 5,000 unit SQ BID [facility] Last Admin: 05/10/19 09:30 Dose: 5,000 unit Dextrose/Lactated Ringer's (D5-Lr -) 1,000 mls @ 42 mls/hr IV ASDIR [facility] Last Admin: 05/11/19 10:24 Dose: 42 mls/hr Piperacillin Sod/Tazobactam (Sod 3.375 gm/ Dextrose) 50 mls @ 100 mls/hr IVPB Q8H-IV BASSEM; Protocol Last Admin: 05/11/19 10:25 Dose: 100 mls/hr Latanoprost (Xalatan 0.005% Eye Drops -) 1 drop OU HS [facility] Last Admin: 05/10/19 21:31 Dose: 1 drop Metoclopramide HCl (Reglan Oral Solution -) 5 mg PEG TIDAC [facility] Last Admin: 05/11/19 10:33 Dose: 5 mg Metoprolol Tartrate (Lopressor -) 100 mg GT BID [facility] Last Admin: 05/11/19 10:26 Dose: 100 mg Miscellaneous (Duragesic Patch Waste) 1 each TD PRN PRN PRN Reason: PATCH REMOVAL Multivitamins/Minerals (Certavite-Antioxidant Liquid) 15 ml PEG DAILY [facility] Last Admin: 05/11/19 10:32 Dose: 15 ml Mupirocin (Bactroban Ointment (For Decolonization) -) 1 applic NS BID [facility] Stop: 05/13/19 21:59 Last Admin: 05/11/19 10:36 Dose: 1 applic Nystatin (Nystop Powder -) 1 applic TP TID [facility] Last Admin: 05/11/19 06:10 Dose: 1 applic Oxycodone HCl (Roxicodone -) 5 mg GT DAILY [facility] Last Admin: 05/11/19 10:26 Dose: 5 mg Sodium Bicarbonate (Sodium Bicarbonate -) 650 mg GT DAILY [facility] Last Admin: 05/11/19 10:27 Dose: 650 mg Sodium Chloride (Normal Saline For Inhalation -) 3 ml IH Q6H PRN PRN Reason: COUGH Verapamil HCl (Calan -) 80 mg PEG TID [facility] - Objective Vital Signs: Vital Signs Temperature 99.3 F 05/11/19 10:00 Pulse Rate 113 H 05/11/19 10:00 Respiratory Rate 14 05/11/19 10:00 Blood Pressure 94/60 05/11/19 10:00 O2 Sat by Pulse Oximetry (%) 99 05/11/19 09:00 Constitutional: Yes: No Distress, Calm Eyes: Yes: Conjunctiva Clear, EOM Intact HENT: Yes: Atraumatic, Normocephalic Neck: Yes: Supple, Trachea Midline Cardiovascular: Yes: Pulse Irregular, S1, S2. No: Regular Rate and Rhythm, Bradycardia, Tachycardia, Bruit, JVD, Gallop, Murmur, Rub, S3, S4, Varicosities Respiratory: Yes: Regular, Mechanically Ventilated. No: Rales, Rhonchi, SOB Gastrointestinal: Yes: Normal Bowel Sounds, Soft Musculoskeletal: Yes: WNL Extremities: Yes: WNL Edema: No Peripheral Pulses WNL: Yes Neurological: Yes: Alert Psychiatric: Yes: Alert Labs: CBC, BMP 05/11/19 05:33 05/11/19 05:33 INR, PTT INR 1.47 (0.83-1.09) H 05/08/19 18:24 - ....Imaging Chest X-ray: Report Reviewed, Image Reviewed EKG: Report Reviewed, Image Reviewed Other: Report Reviewed, Image Reviewed (tele-aflutter with variable conduction) Assessment/Plan 83 year old male with a PMHx of HTN, DM, CAD s/p CABG, ESRD, COPD, prostate cancer, s/p radiation, and s/p trach/vent/peg admitted from residential for coffee ground emesis. EGD 04/16/19 showed no source of active bleeding. He was sent from [place] for tachycardia to 130's. Unable to give history. Echocardiogram 04/20/19: normal LV size and systolic function. LVEF 55%. Normal RV. Moderate LA and RA dilatation. Moderate MAC with mild MR. FCAV without stenosis. Atrial flutter/fibrillation -HR adequate currently but often above goal -restart AC if no contraindications. -receiving metoprolol -verapamil was stopped -BP running low normal -if BP does not tolerate further uptitration of metoprolol or calcium channel filippo can load Digoxin -will follow with you.
--- NOTE | 2019-05-11 12:10 | PN ---
Teaching Attending Note Name of Resident: Juancho George ATTENDING PHYSICIAN STATEMENT I saw and evaluated the patient. I reviewed the resident's note and discussed the case with the resident. I agree with the resident's findings and plan as documented. SUBJECTIVE: Pt seen and examined in the ICU. Vented, awake. Heart rates variable. OBJECTIVE: Vital Signs Period Temp Pulse Resp BP Sys/Kang Pulse Ox Last 24 Hr 98.1 F-99.3 F 79-120 14-27 88-103/46-71 95-99 Intake & Output 05/08/19 05/09/19 05/10/19 05/11/19 23:59 23:59 23:59 23:59 Intake Total 840 1654 Output Total 750 1700 400 Balance 90 -46 -400 Weight 102.965 kg 91.9 kg 92.533 kg 92.4 kg Gen: vented, awake Heart: irregular Lung: bilateral rhonchi Abd: soft, nontender Ext: + edema CBC, BMP 05/11/19 05:33 05/11/19 05:33 Active Medications Acetaminophen (Tylenol Oral Solution -) 650 mg GT Q4H PRN PRN Reason: FEVER Acetylcysteine (Mucomyst 20 Oral / Inh Use Only*) 400 mg NEB RBID [facility] Last Admin: 05/11/19 09:39 Dose: 400 mg Amino Acids (Prosource No Carb Liquid Pkt) 30 ml GT BID@0800,1730 [facility] Last Admin: 05/11/19 09:23 Dose: 30 ml Artificial Tears (Artificial Tears) 1 drop OU QID [facility] Last Admin: 05/11/19 10:38 Dose: 1 drp Ascorbic Acid (Vitamin C -) 500 mg GT BID [facility] Last Admin: 05/11/19 10:27 Dose: 500 mg Bacitracin (Bacitracin -) 1 applic TP BID [facility] Last Admin: 05/11/19 10:37 Dose: 1 applic Buspirone HCl (Buspar -) 5 mg PO TID PRN PRN Reason: ANXIETY Famotidine (Pepcid) 20 mg NGT BID [facility] Last Admin: 05/11/19 10:30 Dose: 20 mg Fentanyl (Duragesic 12mcg Patch -) 1 patch TD Q72H [facility] Last Admin: 05/09/19 10:07 Dose: 1 patch Finasteride (Proscar -) 5 mg PO DAILY [facility] Last Admin: 05/11/19 10:27 Dose: 5 mg Furosemide (Lasix Oral Solution -) 40 mg GT BID@0600,1400 [facility] Last Admin: 05/11/19 06:10 Dose: 40 mg Heparin Sodium (Porcine) (Heparin -) 5,000 unit SQ BID [facility] Last Admin: 05/10/19 09:30 Dose: 5,000 unit Dextrose/Lactated Ringer's (D5-Lr -) 1,000 mls @ 42 mls/hr IV ASDIR [facility] Last Admin: 05/11/19 10:24 Dose: 42 mls/hr Piperacillin Sod/Tazobactam (Sod 3.375 gm/ Dextrose) 50 mls @ 100 mls/hr IVPB Q8H-IV [facility]; Protocol Last Admin: 05/11/19 10:25 Dose: 100 mls/hr Latanoprost (Xalatan 0.005% Eye Drops -) 1 drop OU HS [facility] Last Admin: 05/10/19 21:31 Dose: 1 drop Metoclopramide HCl (Reglan Oral Solution -) 5 mg PEG TIDAC [facility] Last Admin: 05/11/19 10:33 Dose: 5 mg Metoprolol Tartrate (Lopressor -) 100 mg GT BID [facility] Last Admin: 05/11/19 10:26 Dose: 100 mg Miscellaneous (Duragesic Patch Waste) 1 each TD PRN PRN PRN Reason: PATCH REMOVAL Multivitamins/Minerals (Certavite-Antioxidant Liquid) 15 ml PEG DAILY [facility] Last Admin: 05/11/19 10:32 Dose: 15 ml Mupirocin (Bactroban Ointment (For Decolonization) -) 1 applic NS BID [facility] Stop: 05/13/19 21:59 Last Admin: 05/11/19 10:36 Dose: 1 applic Nystatin (Nystop Powder -) 1 applic TP TID [facility] Last Admin: 05/11/19 06:10 Dose: 1 applic Oxycodone HCl (Roxicodone -) 5 mg GT DAILY [facility] Last Admin: 05/11/19 10:26 Dose: 5 mg Sodium Bicarbonate (Sodium Bicarbonate -) 650 mg GT DAILY [facility] Last Admin: 05/11/19 10:27 Dose: 650 mg Sodium Chloride (Normal Saline For Inhalation -) 3 ml IH Q6H PRN PRN Reason: COUGH Verapamil HCl (Calan -) 80 mg PEG TID [facility] ASSESSMENT AND PLAN: Chronic Respiratory Failure Atrial Fibrillation with RVR UTI Sacral Decubitus Ulcer COPD CAD s/p CABG CKD Anemia - rate control - continue anticoagulation - antibiotics per ID - f/u cultures - volume assist control - inhaled bronchodilators - enteral feeds - DVT/GI prophylaxis - can monitor on vent floor
[2019-05-11] MEDS: VERAPAMIL HCL 80 MG TABLET PEG SCH (14:10)
--- NOTE | 2019-05-11 17:25 | PN ---
Progress Note, Physician History of Present Illness: AWAKE ON VENTILATOR AFEBRILE WBC ELEVATED URINE C/S NLF SPUTUM C/S MIXED - Current Medication List Current Medications: Active Medications Acetaminophen (Tylenol Oral Solution -) 650 mg GT Q4H PRN PRN Reason: FEVER Acetylcysteine (Mucomyst 20 Oral / Inh Use Only*) 400 mg NEB RBID [facility] Last Admin: 05/11/19 09:39 Dose: 400 mg Amino Acids (Prosource No Carb Liquid Pkt) 30 ml GT BID@0800,1730 [facility] Last Admin: 05/11/19 16:53 Dose: 30 ml Artificial Tears (Artificial Tears) 1 drop OU QID [facility] Last Admin: 05/11/19 14:23 Dose: 1 drp Ascorbic Acid (Vitamin C -) 500 mg GT BID [facility] Last Admin: 05/11/19 10:27 Dose: 500 mg Bacitracin (Bacitracin -) 1 applic TP BID [facility] Last Admin: 05/11/19 10:37 Dose: 1 applic Buspirone HCl (Buspar -) 5 mg PO TID PRN PRN Reason: ANXIETY Famotidine (Pepcid) 20 mg NGT BID [facility] Last Admin: 05/11/19 10:30 Dose: 20 mg Fentanyl (Duragesic 12mcg Patch -) 1 patch TD Q72H [facility] Last Admin: 05/09/19 10:07 Dose: 1 patch Finasteride (Proscar -) 5 mg PO DAILY [facility] Last Admin: 05/11/19 10:27 Dose: 5 mg Furosemide (Lasix Oral Solution -) 40 mg GT BID@0600,1400 [facility] Last Admin: 05/11/19 14:16 Dose: 40 mg Heparin Sodium (Porcine) (Heparin -) 5,000 unit SQ BID [facility] Last Admin: 05/10/19 09:30 Dose: 5,000 unit Dextrose/Lactated Ringer's (D5-Lr -) 1,000 mls @ 42 mls/hr IV ASDIR [facility] Last Admin: 05/11/19 10:24 Dose: 42 mls/hr Piperacillin Sod/Tazobactam (Sod 3.375 gm/ Dextrose) 50 mls @ 100 mls/hr IVPB Q8H-IV [facility]; Protocol Last Admin: 05/11/19 10:25 Dose: 100 mls/hr Latanoprost (Xalatan 0.005% Eye Drops -) 1 drop OU HS [facility] Last Admin: 05/10/19 21:31 Dose: 1 drop Levalbuterol HCl (Xopenex) 0.31 mg IH Q8H PRN PRN Reason: ASTHMA Metoclopramide HCl (Reglan Oral Solution -) 5 mg PEG TIDAC [facility] Last Admin: 05/11/19 16:53 Dose: 5 mg Metoprolol Tartrate (Lopressor -) 100 mg GT BID [facility] Last Admin: 05/11/19 10:26 Dose: 100 mg Miscellaneous (Duragesic Patch Waste) 1 each TD PRN PRN PRN Reason: PATCH REMOVAL Multivitamins/Minerals (Certavite-Antioxidant Liquid) 15 ml PEG DAILY [facility] Last Admin: 05/11/19 10:32 Dose: 15 ml Mupirocin (Bactroban Ointment (For Decolonization) -) 1 applic NS BID [facility] Stop: 05/13/19 21:59 Last Admin: 05/11/19 10:36 Dose: 1 applic Nystatin (Nystop Powder -) 1 applic TP TID [facility] Last Admin: 05/11/19 14:24 Dose: 1 applic Oxycodone HCl (Roxicodone -) 5 mg GT DAILY [facility] Last Admin: 05/11/19 10:26 Dose: 5 mg Sodium Bicarbonate (Sodium Bicarbonate -) 650 mg GT DAILY [facility] Last Admin: 05/11/19 10:27 Dose: 650 mg Sodium Chloride (Normal Saline For Inhalation -) 3 ml IH Q6H PRN PRN Reason: COUGH Verapamil HCl (Calan -) 80 mg PEG TID [facility] Last Admin: 05/11/19 14:10 Dose: 80 mg - Objective Vital Signs: Vital Signs Temperature 99.0 F 05/11/19 14:00 Pulse Rate 74 05/11/19 16:00 Respiratory Rate 19 05/11/19 16:42 Blood Pressure 102/60 05/11/19 16:00 O2 Sat by Pulse Oximetry (%) 99 05/11/19 10:00 Constitutional: Yes: No Distress Eyes: Yes: Conjunctiva Clear Cardiovascular: Yes: Regular Rate and Rhythm, S1, S2 Respiratory: Yes: Mechanically Ventilated Gastrointestinal: Yes: Normal Bowel Sounds, Soft. No: Tenderness Edema: Yes Labs: CBC, BMP 05/11/19 05:33 05/11/19 05:33 INR, PTT INR 1.47 (0.83-1.09) H 05/08/19 18:24 Assessment/Plan SEPSIS UTI R/O SEPSIS SECONDARY TO UTI LLL PNEUMONIA SACRAL DECUBITUS ULCER HX MDRO RENAL FAILURE CHRONIC RESP FAILURE AWAIT C/S RESULT EMPIRIC ZOSYN
[2019-05-11] MEDS ORDERED: LEVALBUTEROL HCL 0.31 MG/3 ML VIAL.NEB IH PRN (18:32)
--- NOTE | 2019-05-11 19:02 | PN ---
Progress Note, Physician Chief Complaint: Tachycardia History of Present Illness: NAD Mech vent Tachycardia improved Awaiting Sputum C&S On IV abx - Current Medication List Current Medications: Active Medications Acetaminophen (Tylenol Oral Solution -) 650 mg GT Q4H PRN PRN Reason: FEVER Acetylcysteine (Mucomyst 20 Oral / Inh Use Only*) 400 mg NEB RBID [facility] Last Admin: 05/11/19 09:39 Dose: 400 mg Amino Acids (Prosource No Carb Liquid Pkt) 30 ml GT BID@0800,1730 [facility] Last Admin: 05/11/19 16:53 Dose: 30 ml Artificial Tears (Artificial Tears) 1 drop OU QID [facility] Last Admin: 05/11/19 17:55 Dose: 1 drp Ascorbic Acid (Vitamin C -) 500 mg GT BID [facility] Last Admin: 05/11/19 10:27 Dose: 500 mg Bacitracin (Bacitracin -) 1 applic TP BID [facility] Last Admin: 05/11/19 10:37 Dose: 1 applic Buspirone HCl (Buspar -) 5 mg PO TID PRN PRN Reason: ANXIETY Famotidine (Pepcid) 20 mg NGT BID [facility] Last Admin: 05/11/19 10:30 Dose: 20 mg Fentanyl (Duragesic 12mcg Patch -) 1 patch TD Q72H [facility] Last Admin: 05/09/19 10:07 Dose: 1 patch Finasteride (Proscar -) 5 mg PO DAILY [facility] Last Admin: 05/11/19 10:27 Dose: 5 mg Furosemide (Lasix Oral Solution -) 40 mg GT BID@0600,1400 [facility] Last Admin: 05/11/19 14:16 Dose: 40 mg Heparin Sodium (Porcine) (Heparin -) 5,000 unit SQ BID [facility] Last Admin: 05/10/19 09:30 Dose: 5,000 unit Dextrose/Lactated Ringer's (D5-Lr -) 1,000 mls @ 42 mls/hr IV ASDIR [facility] Last Admin: 05/11/19 10:24 Dose: 42 mls/hr Piperacillin Sod/Tazobactam (Sod 3.375 gm/ Dextrose) 50 mls @ 100 mls/hr IVPB Q8H-IV [facility]; Protocol Last Admin: 05/11/19 17:54 Dose: 100 mls/hr Latanoprost (Xalatan 0.005% Eye Drops -) 1 drop OU HS [facility] Last Admin: 05/10/19 21:31 Dose: 1 drop Levalbuterol HCl (Xopenex) 0.31 mg IH Q8H PRN PRN Reason: ASTHMA Levalbuterol HCl (Xopenex) 0.31 mg IH Q8H PRN PRN Reason: ASTHMA Stop: 05/12/19 23:59 Metoclopramide HCl (Reglan Oral Solution -) 5 mg PEG TIDAC [facility] Last Admin: 05/11/19 16:53 Dose: 5 mg Metoprolol Tartrate (Lopressor -) 100 mg GT BID [facility] Last Admin: 05/11/19 10:26 Dose: 100 mg Miscellaneous (Duragesic Patch Waste) 1 each TD PRN PRN PRN Reason: PATCH REMOVAL Multivitamins/Minerals (Certavite-Antioxidant Liquid) 15 ml PEG DAILY [facility] Last Admin: 05/11/19 10:32 Dose: 15 ml Mupirocin (Bactroban Ointment (For Decolonization) -) 1 applic NS BID [facility] Stop: 05/13/19 21:59 Last Admin: 05/11/19 10:36 Dose: 1 applic Nystatin (Nystop Powder -) 1 applic TP TID [facility] Last Admin: 05/11/19 14:24 Dose: 1 applic Oxycodone HCl (Roxicodone -) 5 mg GT DAILY [facility] Last Admin: 05/11/19 10:26 Dose: 5 mg Sodium Bicarbonate (Sodium Bicarbonate -) 650 mg GT DAILY [facility] Last Admin: 05/11/19 10:27 Dose: 650 mg Sodium Chloride (Normal Saline For Inhalation -) 3 ml IH Q6H PRN PRN Reason: COUGH Verapamil HCl (Calan -) 80 mg PEG TID [facility] Last Admin: 05/11/19 14:10 Dose: 80 mg - Objective Vital Signs: Vital Signs Temperature 99.2 F 05/11/19 18:00 Pulse Rate 75 05/11/19 18:00 Respiratory Rate 14 05/11/19 18:00 Blood Pressure 126/75 05/11/19 18:00 O2 Sat by Pulse Oximetry (%) 99 05/11/19 10:00 Constitutional: Yes: Well Nourished, No Distress, Calm Cardiovascular: Yes: Regular Rate and Rhythm Respiratory: Yes: Mechanically Ventilated, Rhonchi (diffuse) Gastrointestinal: Yes: WNL Genitourinary: Yes: Huber Present Musculoskeletal: Yes: Muscle Weakness Edema: Yes (generalized) Integumentary: Yes: Pressure Ulcer (Stage 4 sacral), Skin Tear (BLUE) Wound/Incision: Yes: Dressing Dry and Intact Neurological: Yes: Alert, Pre-Existing Deficit Labs: CBC, BMP 05/11/19 05:33 05/11/19 05:33 INR, PTT INR 1.47 (0.83-1.09) H 05/08/19 18:24 Problem List - Problems (1) Atrial flutter Assessment/Plan: -Cardiology consult -D/C Diltiazem -Started on Verapamil 40 mg TID -Continue Lopressor 100 mg BID -tele monitor -AC contraindicated secondary to recent GI bleed Problems reviewed: Yes Code(s): I48.92 - UNSPECIFIED ATRIAL FLUTTER Qualifiers: Atrial flutter type: typical Qualified Code(s): I48.3 - Typical atrial flutter (2) Decubitus ulcer of sacral region, stage 4 Assessment/Plan: -Wound care -off loading -T&P Q2H Problems reviewed: Yes Code(s): L89.154 - PRESSURE ULCER OF SACRAL REGION, STAGE 4 (3) Functional quadriplegia Problems reviewed: Yes Code(s): R53.2 - FUNCTIONAL QUADRIPLEGIA (4) Acute and chronic respiratory failure Assessment/Plan: -mechanical vent -Pulmonary on board -Bronchodilators PRN Problems reviewed: Yes Code(s): J96.20 - ACUTE AND CHR RESP FAILURE, UNSP W HYPOXIA OR HYPERCAPNIA (5) Anemia Assessment/Plan: -chronic -Monitor trend -Avoid transfusion unless Hg <7.0 to avoid fluid overload -Received 3 units PRBC Problems reviewed: Yes Code(s): D64.9 - ANEMIA, UNSPECIFIED (6) Urinary retention Assessment/Plan: -Huber catheter -Replaced on 05/08/19 Problems reviewed: Yes Code(s): R33.9 - RETENTION OF URINE, UNSPECIFIED Assessment/Plan see problem list
[2019-05-11] MEDS: HEPARIN NA (PORCINE) 5,000 UNITS/ML 1ML VIAL SQ SCH (21:39)
[2019-05-11] MEDS: LATANOPROST 0.005% OPHTH SOLN 2.5ML BOTTLE OU SCH (21:40)
[2019-05-12] MEDS ORDERED: PIPERACILLIN/TAZOBACTAM 3.375 GM VIAL IVPB ONE ×3 (02:26→16:02)
[2019-05-12] MEDS ORDERED: DEXTROSE 5%-WATER - 50 ML IVPB ONE ×3 (02:26→16:02)
[2019-05-12] MEDS: PIPERACILLIN/TAZOB 3.375 GM 3.375 GM in DEXTROSE 5%-WATER - 50 ML IVPB SCH ×3 (02:29→17:12)
[2019-05-12] MEDS: METOPROLOL TARTRATE 50 MG TABLET (FP) GT SCH ×3 (03:39→21:22)
[2019-05-12] MEDS: VERAPAMIL HCL 80 MG TABLET PEG SCH ×4 (03:39→21:22)
[2019-05-12] MEDS: METOCLOPRAMIDE HCL 5 MG/5 ML UNIT DOSE CUP PEG SCH ×3 (06:03→17:12)
[2019-05-12] MEDS: DEXTROSE 5%-LACTATED RINGERS 1,000 ML IV SCH (06:04)
[2019-05-12] MEDS: FUROSEMIDE 40 MG/5 ML UNIT-DOSE CUP GT SCH ×2 (06:04→17:12)
[2019-05-12] MEDS: NYSTATIN POWDER 100,000 UNITS/GM - 15 GM TOPICAL POWDER TP SCH ×3 (06:04→21:23)
[2019-05-12] MEDS ORDERED: PT OWN MED DRAWER 7, Y5N ONE ×4 (06:57→16:02)
[2019-05-12] MEDS: ACETYLCYSTEINE 20% 200MG/ML 4 ML VIAL *FOR ORAL / INH USE ONLY NEB SCH ×3 (08:46→19:48)
[2019-05-12 09:45] LABS: BASO % 0.2 % (0-2.0); EOS % 1.3 % (0-4.5); HEMATOCRIT 29.3 % (35.4-49); HEMOGLOBIN 9.5 GM/dL (11.7-16.9); LYMPH % 2.1 % (8-40); MCH 31.6 pg (25.7-33.7); MCHC 32.4 g/dl (32.0-35.9); MEAN CELL VOLUME 97.7 fl (80-96); MEAN PLT VOLUME 8.8 fl (7.5-11.1); MONO % 3.7 % (3.8-10.2); NEUT % 92.7 % (42.8-82.8); PLATELET COUNT 191 K/MM3 (134-434); RDW 24.8 % (11.9-15.9); WHITE BLOOD COUNT 12.2 K/mm3 (4.0-10.0)
[2019-05-12] MEDS: ARTIFICIAL TEARS (POLYVINYL ALCOHOL) OPTH DROPS OU SCH ×4 (10:00→21:21)
[2019-05-12 10:15] LABS: ALBUMIN 0.9 g/dl (3.4-5.0); BILIRUBIN,TOTAL 0.5 mg/dL (0.2-1); BLOOD UREA NITROGEN 45.6 mg/dL (7-18); CALCIUM 7.4 mg/dL (8.5-10.1); CREATININE 1.5 mg/dL (0.55-1.3); MAGNESIUM 1.9 mg/dL (1.8-2.4); POTASSIUM 3.8 mmol/L (3.5-5.1)
[2019-05-12] MEDS: HEPARIN NA (PORCINE) 5,000 UNITS/ML 1ML VIAL SQ SCH ×2 (10:27→21:22)
[2019-05-12] MEDS: ASCORBIC ACID 500 MG TABLET (FP) GT SCH ×2 (10:28→21:23)
[2019-05-12] MEDS: oxyCODONE HCL 5 MG TABLET GT SCH (10:28)
[2019-05-12] MEDS: SODIUM BICARBONATE 650 MG TABLET GT SCH (10:29)
[2019-05-12] MEDS: FINASTERIDE 5 MG TABLET (FP) PO SCH (10:29)
[2019-05-12] MEDS: AMINO ACIDS/PROTEIN HYDROLYS 30 ML LIQUID.PKT GT SCH ×2 (10:30→17:12)
[2019-05-12] MEDS: BACITRACIN 15 GM TUBE TOPICAL OINTMENT TP SCH ×2 (10:30→21:21)
[2019-05-12] MEDS: MUPIROCIN 2% TOPICAL OINTMENT FOR DECOLONIZATION NS SCH ×2 (10:30→21:21)
[2019-05-12] MEDS: MULTIVIT-MINERALS ORAL LIQUID PEG SCH (10:31)
[2019-05-12] MEDS: FAMOTIDINE 40 MG/5 ML ORAL SUSPENSION NGT SCH ×2 (10:33→21:23)
[2019-05-12] MEDS: fentaNYL 12mcg/hr PATCH.TD72 TD SCH (11:26)
--- NOTE | 2019-05-12 11:57 | PN ---
Progress Note, Physician History of Present Illness: AWAKE ON VENTILATOR AFEBRILE WBC REMAINS ELEVATED URINE C/S NLF SPUTUM C/S MIXED - Current Medication List Current Medications: Active Medications Acetaminophen (Tylenol Oral Solution -) 650 mg GT Q4H PRN PRN Reason: FEVER Acetylcysteine (Mucomyst 20 Oral / Inh Use Only*) 400 mg NEB RBID [facility] Last Admin: 05/12/19 08:46 Dose: Not Given Amino Acids (Prosource No Carb Liquid Pkt) 30 ml GT BID@0800,1730 [facility] Last Admin: 05/12/19 10:30 Dose: 30 ml Artificial Tears (Artificial Tears) 1 drop OU QID [facility] Last Admin: 05/11/19 21:39 Dose: 1 drp Ascorbic Acid (Vitamin C -) 500 mg GT BID [facility] Last Admin: 05/12/19 10:28 Dose: 500 mg Bacitracin (Bacitracin -) 1 applic TP BID [facility] Last Admin: 05/12/19 10:30 Dose: 1 applic Buspirone HCl (Buspar -) 5 mg PO TID PRN PRN Reason: ANXIETY Famotidine (Pepcid) 20 mg NGT BID [facility] Last Admin: 05/12/19 10:33 Dose: 20 mg Fentanyl (Duragesic 12mcg Patch -) 1 patch TD Q72H [facility] Last Admin: 05/12/19 11:26 Dose: 1 patch Finasteride (Proscar -) 5 mg PO DAILY [facility] Last Admin: 05/12/19 10:29 Dose: 5 mg Furosemide (Lasix Oral Solution -) 40 mg GT BID@0600,1400 [facility] Last Admin: 05/12/19 06:04 Dose: 40 mg Heparin Sodium (Porcine) (Heparin -) 5,000 unit SQ BID [facility] Last Admin: 05/12/19 10:27 Dose: 5,000 unit Dextrose/Lactated Ringer's (D5-Lr -) 1,000 mls @ 42 mls/hr IV ASDIR [facility] Last Admin: 05/12/19 06:04 Dose: Not Given Piperacillin Sod/Tazobactam (Sod 3.375 gm/ Dextrose) 50 mls @ 100 mls/hr IVPB Q8H-IV [facility]; Protocol Last Admin: 05/12/19 10:27 Dose: 100 mls/hr Latanoprost (Xalatan 0.005% Eye Drops -) 1 drop OU HS [facility] Last Admin: 05/11/19 21:40 Dose: 1 drop Levalbuterol HCl (Xopenex) 0.31 mg IH Q8H PRN PRN Reason: ASTHMA Levalbuterol HCl (Xopenex) 0.31 mg IH Q8H PRN PRN Reason: ASTHMA Stop: 05/12/19 23:59 Metoclopramide HCl (Reglan Oral Solution -) 5 mg PEG TIDAC [facility] Last Admin: 05/12/19 10:32 Dose: 5 mg Metoprolol Tartrate (Lopressor -) 100 mg GT BID [facility] Last Admin: 05/12/19 10:41 Dose: 100 mg Miscellaneous (Duragesic Patch Waste) 1 each TD PRN PRN PRN Reason: PATCH REMOVAL Multivitamins/Minerals (Certavite-Antioxidant Liquid) 15 ml PEG DAILY [facility] Last Admin: 05/12/19 10:31 Dose: 15 ml Mupirocin (Bactroban Ointment (For Decolonization) -) 1 applic NS BID [facility] Stop: 05/13/19 21:59 Last Admin: 05/12/19 10:30 Dose: 1 applic Nystatin (Nystop Powder -) 1 applic TP TID [facility] Last Admin: 05/12/19 06:04 Dose: 1 applic Oxycodone HCl (Roxicodone -) 5 mg GT DAILY [facility] Last Admin: 05/12/19 10:28 Dose: 5 mg Sodium Bicarbonate (Sodium Bicarbonate -) 650 mg GT DAILY [facility] Last Admin: 05/12/19 10:29 Dose: 650 mg Sodium Chloride (Normal Saline For Inhalation -) 3 ml IH Q6H PRN PRN Reason: COUGH Verapamil HCl (Calan -) 80 mg PEG TID [facility] Last Admin: 05/12/19 06:03 Dose: 80 mg - Objective Vital Signs: Vital Signs Temperature 99.1 F 05/12/19 10:00 Pulse Rate 102 H 05/12/19 10:00 Respiratory Rate 20 05/12/19 10:00 Blood Pressure 123/81 05/12/19 10:00 O2 Sat by Pulse Oximetry (%) 97 05/12/19 08:00 Constitutional: Yes: No Distress Cardiovascular: Yes: Regular Rate and Rhythm, S1, S2 Respiratory: Yes: Mechanically Ventilated Gastrointestinal: Yes: Normal Bowel Sounds, Soft. No: Tenderness Edema: Yes Edema: LLE: 2+, RLE: 2+ Labs: CBC, BMP 05/12/19 09:14 05/12/19 09:14 INR, PTT INR 1.47 (0.83-1.09) H 05/08/19 18:24 Assessment/Plan SEPSIS UTI R/O SEPSIS SECONDARY TO UTI LLL PNEUMONIA SACRAL DECUBITUS ULCER HX MDRO RENAL FAILURE CHRONIC RESP FAILURE AWAIT C/S RESULT EMPIRIC ZOSYN
[2019-05-12 12:18] LABS: OVALOCYTE 1+; PLATELET ESTIMATE ADEQUATE; TEAR DROP CELLS 1+
--- NOTE | 2019-05-12 14:23 | PN ---
Teaching Attending Note Name of Resident: Kenroy Johnson ATTENDING PHYSICIAN STATEMENT I saw and evaluated the patient. I reviewed the resident's note and discussed the case with the resident. I agree with the resident's findings and plan as documented. SUBJECTIVE: Pt seen and examined in the ICU. Vented, awake. No fevers recorded. OBJECTIVE: Vital Signs Period Temp Pulse Resp BP Sys/Kang Pulse Ox Last 24 Hr 99 F-99.2 F 74-114 14-30 92-126/55-81 97-98 Intake & Output 05/09/19 05/10/19 05/11/19 05/12/19 23:59 23:59 23:59 23:59 Intake Total 840 2596 842 8600 Output Total 750 1700 1250 900 Balance 90 -46 -688 387 Weight 91.9 kg 92.533 kg 92.4 kg 98.3 kg Gen: vented, awake Heart: RRR Lung: scattered rhonchi Abd: soft, nontender Ext: + edema CBC, BMP 05/12/19 09:14 05/12/19 09:14 Active Medications Acetaminophen (Tylenol Oral Solution -) 650 mg GT Q4H PRN PRN Reason: FEVER Acetylcysteine (Mucomyst 20 Oral / Inh Use Only*) 400 mg NEB RBID [facility] Last Admin: 05/12/19 12:10 Dose: 400 mg Amino Acids (Prosource No Carb Liquid Pkt) 30 ml GT BID@0800,1730 [facility] Last Admin: 05/12/19 10:30 Dose: 30 ml Artificial Tears (Artificial Tears) 1 drop OU QID [facility] Last Admin: 05/11/19 21:39 Dose: 1 drp Ascorbic Acid (Vitamin C -) 500 mg GT BID [facility] Last Admin: 05/12/19 10:28 Dose: 500 mg Bacitracin (Bacitracin -) 1 applic TP BID [facility] Last Admin: 05/12/19 10:30 Dose: 1 applic Buspirone HCl (Buspar -) 5 mg PO TID PRN PRN Reason: ANXIETY Famotidine (Pepcid) 20 mg NGT BID [facility] Last Admin: 05/12/19 10:33 Dose: 20 mg Fentanyl (Duragesic 12mcg Patch -) 1 patch TD Q72H [facility] Last Admin: 05/12/19 11:26 Dose: 1 patch Finasteride (Proscar -) 5 mg PO DAILY [facility] Last Admin: 05/12/19 10:29 Dose: 5 mg Furosemide (Lasix Oral Solution -) 40 mg GT BID@0600,1400 [facility] Last Admin: 05/12/19 06:04 Dose: 40 mg Heparin Sodium (Porcine) (Heparin -) 5,000 unit SQ BID [facility] Last Admin: 05/12/19 10:27 Dose: 5,000 unit Dextrose/Lactated Ringer's (D5-Lr -) 1,000 mls @ 42 mls/hr IV ASDIR [facility] Last Admin: 05/12/19 06:04 Dose: Not Given Piperacillin Sod/Tazobactam (Sod 3.375 gm/ Dextrose) 50 mls @ 100 mls/hr IVPB Q8H-IV [facility]; Protocol Last Admin: 05/12/19 10:27 Dose: 100 mls/hr Latanoprost (Xalatan 0.005% Eye Drops -) 1 drop OU HS [facility] Last Admin: 05/11/19 21:40 Dose: 1 drop Levalbuterol HCl (Xopenex) 0.31 mg IH Q8H PRN PRN Reason: ASTHMA Levalbuterol HCl (Xopenex) 0.31 mg IH Q8H PRN PRN Reason: ASTHMA Stop: 05/12/19 23:59 Last Admin: 05/12/19 12:10 Dose: 0.31 mg Metoclopramide HCl (Reglan Oral Solution -) 5 mg PEG TIDAC [facility] Last Admin: 05/12/19 10:32 Dose: 5 mg Metoprolol Tartrate (Lopressor -) 100 mg GT BID [facility] Last Admin: 05/12/19 10:41 Dose: 100 mg Miscellaneous (Duragesic Patch Waste) 1 each TD PRN PRN PRN Reason: PATCH REMOVAL Multivitamins/Minerals (Certavite-Antioxidant Liquid) 15 ml PEG DAILY [facility] Last Admin: 05/12/19 10:31 Dose: 15 ml Mupirocin (Bactroban Ointment (For Decolonization) -) 1 applic NS BID [facility] Stop: 05/13/19 21:59 Last Admin: 05/12/19 10:30 Dose: 1 applic Nystatin (Nystop Powder -) 1 applic TP TID [facility] Last Admin: 05/12/19 06:04 Dose: 1 applic Oxycodone HCl (Roxicodone -) 5 mg GT DAILY [facility] Last Admin: 05/12/19 10:28 Dose: 5 mg Sodium Bicarbonate (Sodium Bicarbonate -) 650 mg GT DAILY [facility] Last Admin: 05/12/19 10:29 Dose: 650 mg Sodium Chloride (Normal Saline For Inhalation -) 3 ml IH Q6H PRN PRN Reason: COUGH Verapamil HCl (Calan -) 80 mg PEG TID [facility] Last Admin: 05/12/19 06:03 Dose: 80 mg ASSESSMENT AND PLAN: Chronic Respiratory Failure Atrial Fibrillation with RVR UTI Sacral Decubitus Ulcer COPD CAD s/p CABG CKD Anemia - rate control - continue anticoagulation - antibiotics per ID - f/u cultures - volume assist control - inhaled bronchodilators - enteral feeds - DVT/GI prophylaxis - can monitor on vent floor
--- NOTE | 2019-05-12 14:38 | PN ---
Progress Note, Physician Chief Complaint: Cardiology FU Intubted Telem AF HR 80s - Current Medication List Current Medications: Active Medications Acetaminophen (Tylenol Oral Solution -) 650 mg GT Q4H PRN PRN Reason: FEVER Acetylcysteine (Mucomyst 20 Oral / Inh Use Only*) 400 mg NEB RBID [facility] Last Admin: 05/12/19 12:10 Dose: 400 mg Amino Acids (Prosource No Carb Liquid Pkt) 30 ml GT BID@0800,1730 [facility] Last Admin: 05/12/19 10:30 Dose: 30 ml Artificial Tears (Artificial Tears) 1 drop OU QID [facility] Last Admin: 05/11/19 21:39 Dose: 1 drp Ascorbic Acid (Vitamin C -) 500 mg GT BID [facility] Last Admin: 05/12/19 10:28 Dose: 500 mg Bacitracin (Bacitracin -) 1 applic TP BID [facility] Last Admin: 05/12/19 10:30 Dose: 1 applic Buspirone HCl (Buspar -) 5 mg PO TID PRN PRN Reason: ANXIETY Famotidine (Pepcid) 20 mg NGT BID [facility] Last Admin: 05/12/19 10:33 Dose: 20 mg Fentanyl (Duragesic 12mcg Patch -) 1 patch TD Q72H [facility] Last Admin: 05/12/19 11:26 Dose: 1 patch Finasteride (Proscar -) 5 mg PO DAILY [facility] Last Admin: 05/12/19 10:29 Dose: 5 mg Furosemide (Lasix Oral Solution -) 40 mg GT BID@0600,1400 [facility] Last Admin: 05/12/19 06:04 Dose: 40 mg Heparin Sodium (Porcine) (Heparin -) 5,000 unit SQ BID [facility] Last Admin: 05/12/19 10:27 Dose: 5,000 unit Dextrose/Lactated Ringer's (D5-Lr -) 1,000 mls @ 42 mls/hr IV ASDIR [facility] Last Admin: 05/12/19 06:04 Dose: Not Given Piperacillin Sod/Tazobactam (Sod 3.375 gm/ Dextrose) 50 mls @ 100 mls/hr IVPB Q8H-IV [facility]; Protocol Last Admin: 05/12/19 10:27 Dose: 100 mls/hr Latanoprost (Xalatan 0.005% Eye Drops -) 1 drop OU HS [facility] Last Admin: 05/11/19 21:40 Dose: 1 drop Levalbuterol HCl (Xopenex) 0.31 mg IH Q8H PRN PRN Reason: ASTHMA Levalbuterol HCl (Xopenex) 0.31 mg IH Q8H PRN PRN Reason: ASTHMA Stop: 05/12/19 23:59 Last Admin: 05/12/19 12:10 Dose: 0.31 mg Metoclopramide HCl (Reglan Oral Solution -) 5 mg PEG TIDAC [facility] Last Admin: 05/12/19 10:32 Dose: 5 mg Metoprolol Tartrate (Lopressor -) 100 mg GT BID [facility] Last Admin: 05/12/19 10:41 Dose: 100 mg Miscellaneous (Duragesic Patch Waste) 1 each TD PRN PRN PRN Reason: PATCH REMOVAL Multivitamins/Minerals (Certavite-Antioxidant Liquid) 15 ml PEG DAILY [facility] Last Admin: 05/12/19 10:31 Dose: 15 ml Mupirocin (Bactroban Ointment (For Decolonization) -) 1 applic NS BID [facility] Stop: 05/13/19 21:59 Last Admin: 05/12/19 10:30 Dose: 1 applic Nystatin (Nystop Powder -) 1 applic TP TID [facility] Last Admin: 05/12/19 06:04 Dose: 1 applic Oxycodone HCl (Roxicodone -) 5 mg GT DAILY [facility] Last Admin: 05/12/19 10:28 Dose: 5 mg Sodium Bicarbonate (Sodium Bicarbonate -) 650 mg GT DAILY [facility] Last Admin: 05/12/19 10:29 Dose: 650 mg Sodium Chloride (Normal Saline For Inhalation -) 3 ml IH Q6H PRN PRN Reason: COUGH Verapamil HCl (Calan -) 80 mg PEG TID [facility] Last Admin: 05/12/19 06:03 Dose: 80 mg - Objective Vital Signs: Vital Signs Temperature 99 F 05/12/19 14:00 Pulse Rate 101 H 05/12/19 14:00 Respiratory Rate 05/12/19 14:00 Blood Pressure 115/65 05/12/19 14:00 O2 Sat by Pulse Oximetry (%) 98 05/12/19 13:14 Constitutional: Yes: No Distress, Calm Eyes: Yes: Conjunctiva Clear HENT: Yes: Atraumatic, Normocephalic Neck: Yes: Supple, Trachea Midline Respiratory: Yes: Regular, CTA Bilaterally Gastrointestinal: Yes: Normal Bowel Sounds Edema: Yes Edema: LLE: 1+, RLE: 1+ Labs: CBC, BMP 05/12/19 09:14 05/12/19 09:14 INR, PTT INR 1.47 (0.83-1.09) H 05/08/19 18:24 Problem List - Problems (1) Atrial flutter Code(s): I48.92 - UNSPECIFIED ATRIAL FLUTTER Qualifiers: Atrial flutter type: typical Qualified Code(s): I48.3 - Typical atrial flutter Assessment/Plan 83 year old male with a PMHx of HTN, DM, CAD s/p CABG, ESRD, COPD, prostate cancer, s/p radiation, and s/p trach/vent/peg admitted from assisted for coffee ground emesis. EGD 04/16/19 showed no source of active bleeding. He was sent from [place] for tachycardia to 130's. Unable to give history. Echocardiogram 04/20/19: normal LV size and systolic function. LVEF 55%. Normal RV. Moderate LA and RA dilatation. Moderate MAC with mild MR. FCAV without stenosis. Atrial flutter/fibrillation -HR adequately controlled -restart AC if no contraindications. -receiving metoprolol -if BP does not tolerate further uptitration of metoprolol or calcium channel filippo can load Digoxin -will follow with you.
--- NOTE | 2019-05-12 16:14 | PN ---
Physical Exam: SUBJECTIVE: Patient seen and examined in the morning. Patient desatted last night, respiratory therapist increased Fio2 to 100% however it was returned to normal levels in the morning. No events on cardiac monitoring. Patient shakes his head no to questions regarding chest pain, abdominal pain, and shortness of breath. OBJECTIVE: Vital Signs Period Temp Pulse Resp BP Sys/Kang Pulse Ox Last 24 Hr 99 F-99.2 F 75-114 14-30 92-126/55-81 97-98 GENERAL: The patient is awake, alert and in no acute distress. HEAD: Trached to vent, PERRLA EYES: PERRL, extraocular movements intact, sclera anicteric, conjunctiva clear. No ptosis. LUNGS: Scattered rhonchi. HEART: Irregularly, irregular. Systolic murmur 3/6 ABDOMEN: Soft, nontender. Peg tube in place. EXTREMITIES: small hematomas present b/l UE & LE. 2+ pitting edema b/l SKIN: chronic sacral ulcer. Laboratory Results - last 24 hr 05/08/19 05/12/19 05/12/19 20:08 09:14 09:14 WBC 12.2 H RBC 3.00 L Hgb 9.5 L Hct 29.3 L MCV 97.7 H MCH 31.6 MCHC 32.4 RDW 24.8 H Plt Count 191 MPV 8.8 Absolute Neuts (auto) 11.3 H Total Counted 100 Neutrophils % 92.7 H Neutrophils % (Manual) 85.0 H Band Neutrophils % 5.0 Lymphocytes % 2.1 L D Lymphocytes % (Manual) 5.0 L D Monocytes % 3.7 L Monocytes % (Manual) 3 L Eosinophils % 1.3 Eosinophils % (Manual) 2.0 Basophils % 0.2 Nucleated RBC % 0 Platelet Estimate Adequate Platelet Comment Large platelets Polychromasia 1+ Tear Drop Cells 1+ Ovalocytes 1+ Sodium 145 Potassium 3.8 Chloride 110 H Carbon Dioxide 28 Anion Gap 8 BUN 45.6 H Creatinine 1.5 H Est GFR (CKD-EPI)AfAm 49.54 Est GFR (CKD-EPI)NonAf 42.74 Random Glucose 221 H Calcium 7.4 L Phosphorus 3.0 Magnesium 1.9 Total Bilirubin 0.5 AST 44 H ALT 28 Alkaline Phosphatase 215 H Total Protein 6.0 L Albumin 0.9 L Blood Type O NEGATIVE Antibody Screen Negative Crossmatch See Detail Active Medications Generic Name Dose Route Start Last Admin Trade Name Freq PRN Reason Stop Dose Admin Acetaminophen 650 mg 05/09/19 08:43 Tylenol Oral Solution - GT Q4H PRN FEVER Acetylcysteine 400 mg 05/10/19 20:00 05/12/19 12:10 Mucomyst 20 Oral / Inh Use Only* NEB 400 mg RBID [facility] Administration Amino Acids 30 ml 05/09/19 17:30 05/12/19 10:30 Prosource No Carb Liquid Pkt GT 30 ml BID@0800,1730 [facility] Administration Artificial Tears 1 drop 05/09/19 10:00 05/11/19 21:39 Artificial Tears OU 1 drp QID [facility] Administration Ascorbic Acid 500 mg 05/09/19 10:00 05/12/19 10:28 Vitamin C - GT 500 mg BID [facility] Administration Bacitracin 1 applic 05/09/19 10:00 05/12/19 10:30 Bacitracin - TP 1 applic BID [facility] Administration Buspirone HCl 5 mg 05/09/19 08:43 Buspar - PO TID PRN ANXIETY Famotidine 20 mg 05/09/19 10:00 05/12/19 10:33 Pepcid NGT 20 mg BID [facility] Administration Fentanyl 1 patch 05/09/19 10:15 05/12/19 11:26 Duragesic 12mcg Patch - TD 1 patch Q72H [facility] Administration Finasteride 5 mg 05/09/19 10:00 05/12/19 10:29 Proscar - PO 5 mg DAILY [facility] Administration Furosemide 40 mg 05/09/19 14:00 05/12/19 06:04 Lasix Oral Solution - GT 40 mg BID@0600,1400 [facility] Administration Heparin Sodium (Porcine) 5,000 unit 05/08/19 22:00 05/12/19 10:27 Heparin - SQ 5,000 unit BID [facility] Administration Dextrose/Lactated Ringer's 1,000 mls @ 42 mls/hr 05/09/19 06:30 05/12/19 06:04 D5-Lr - IV Not Given ASDIR [facility] Piperacillin Sod/Tazobactam 50 mls @ 100 mls/hr 05/10/19 10:15 05/12/19 10:27 Sod 3.375 gm/ Dextrose IVPB 100 mls/hr Q8H-IV [facility] Administration Protocol Latanoprost 1 drop 05/09/19 22:00 05/11/19 21:40 Xalatan 0.005% Eye Drops - OU 1 drop HS [facility] Administration Levalbuterol HCl 0.31 mg 05/11/19 16:43 Xopenex IH Q8H PRN ASTHMA Levalbuterol HCl 0.31 mg 05/11/19 18:32 05/12/19 12:10 Xopenex IH 05/12/19 23:59 0.31 mg Q8H PRN Administration ASTHMA Metoclopramide HCl 5 mg 05/09/19 11:00 05/12/19 10:32 Reglan Oral Solution - PEG 5 mg TIDAC [facility] Administration Metoprolol Tartrate 100 mg 05/09/19 00:15 05/12/19 10:41 Lopressor - GT 100 mg BID [facility] Administration Miscellaneous 1 each 05/09/19 09:54 Duragesic Patch Waste TD PRN PRN PATCH REMOVAL Multivitamins/Minerals 15 ml 05/09/19 10:00 05/12/19 10:31 Certavite-Antioxidant Liquid PEG 15 ml DAILY [facility] Administration Mupirocin 1 applic 05/08/19 22:00 05/12/19 10:30 Bactroban Ointment (For Decolonization) - NS 05/13/19 21:59 1 applic BID [facility] Administration Nystatin 1 applic 05/09/19 14:00 05/12/19 06:04 Nystop Powder - TP 1 applic TID [facility] Administration Oxycodone HCl 5 mg 05/09/19 10:00 05/12/19 10:28 Roxicodone - GT 5 mg DAILY [facility] Administration Sodium Bicarbonate 650 mg 05/09/19 10:00 05/12/19 10:29 Sodium Bicarbonate - GT 650 mg DAILY [facility] Administration Sodium Chloride 3 ml 05/09/19 08:43 Normal Saline For Inhalation - IH Q6H PRN COUGH Verapamil HCl 80 mg 05/11/19 11:28 05/12/19 06:03 Calan - PEG 80 mg TID [facility] Administration ASSESSMENT/PLAN: 83 M PMH CABG, HTN, HLD, ESRD (b/l nephrostomy tubes removed 04/28/2019), COPD s/p trach/vent, PEG tube, DM, anemia presented for tachycardia. Neuro -Patient is alert and awake -Tracks examiner Cardiovascular -Hx of CABG, HTN, HLD -Tachycardic on admission -Verapamil 80 mg Q8H -Lopressor 100 mg GT BID -Limit Beta agonists as per camp recreation specialist -Lasix 40 mg GT BID -Cardiology consulted, appreciate recs Pulmonary -Chronic resp failure s/p trach & vent dependent: 400/12/5/40% -maintain o2 sat >90% GI -On tube feeds -No acute events -Continue monitoring -ID -Hx of sputum MRSA and ESBL from nephrostomy tube in prior admission -Afebrile -Urine culture shows non lactose fermenting gram negative bacilli and proteus CRE. -Sputum shows pseudomonas and non lactose fermenting GNB. -Vancomycin and gentamicin given. -Continue Zosyn -bryant changed -ID consulted, appreciate recs Renal -ESRD -S/p bilateral nephrostomy tube by Urology 04/28/2019 -Finasteride, lasix Heme/Onc -Hgb 7.9 s/p 1 unit PRBC -1 units PRBC today -Holding A/C for potential bleed -Monitor H&H DVT: Heparin SubQ Lines: On chronic tracheostomy. Bryant changed on 05/08. No central line. Dispo: Transfer to Med/Surg Visit type - Emergency Visit Emergency Visit: Yes ED Registration Date: 05/08/19 Care time: The patient presented to the Emergency Department on the above date and was hospitalized for further evaluation of their emergent condition. - New Patient This patient is new to me today: No - Critical Care Critical Care patient: Yes Total Critical Care Time (in minutes): 45 Critical Care Statement: The care of this patient involved high complexity decision making to prevent further life threatening deterioration of the patient's condition and/or to evaluate & treat vital organ system(s) failure or risk of failure. ATTENDING PHYSICIAN STATEMENT I saw and evaluated the patient. I reviewed the resident's note and discussed the case with the resident. I agree with the resident's findings and plan as documented. SUBJECTIVE: OBJECTIVE: ASSESSMENT AND PLAN:
[2019-05-12] MEDS ORDERED: LEVALBUTEROL HCL 0.31 MG/3 ML VIAL.NEB IH PRN (16:29)
--- NOTE | 2019-05-12 17:57 | PN ---
Progress Note, Physician Chief Complaint: Tachycardia History of Present Illness: NAD Mech vent Tachycardia improved On IV abx - Current Medication List Current Medications: Active Medications Acetaminophen (Tylenol Oral Solution -) 650 mg GT Q4H PRN PRN Reason: FEVER Acetylcysteine (Mucomyst 20 Oral / Inh Use Only*) 400 mg NEB RBID [facility] Last Admin: 05/12/19 12:10 Dose: 400 mg Amino Acids (Prosource No Carb Liquid Pkt) 30 ml GT BID@0800,1730 [facility] Last Admin: 05/12/19 17:12 Dose: 30 ml Artificial Tears (Artificial Tears) 1 drop OU QID [facility] Last Admin: 05/12/19 17:22 Dose: 1 drp Ascorbic Acid (Vitamin C -) 500 mg GT BID [facility] Last Admin: 05/12/19 10:28 Dose: 500 mg Bacitracin (Bacitracin -) 1 applic TP BID [facility] Last Admin: 05/12/19 10:30 Dose: 1 applic Buspirone HCl (Buspar -) 5 mg PO TID PRN PRN Reason: ANXIETY Famotidine (Pepcid) 20 mg NGT BID [facility] Last Admin: 05/12/19 10:33 Dose: 20 mg Fentanyl (Duragesic 12mcg Patch -) 1 patch TD Q72H [facility] Last Admin: 05/12/19 11:26 Dose: 1 patch Finasteride (Proscar -) 5 mg PO DAILY [facility] Last Admin: 05/12/19 10:29 Dose: 5 mg Furosemide (Lasix Oral Solution -) 40 mg GT BID@0600,1400 [facility] Last Admin: 05/12/19 17:12 Dose: 40 mg Heparin Sodium (Porcine) (Heparin -) 5,000 unit SQ BID [facility] Last Admin: 05/12/19 10:27 Dose: 5,000 unit Dextrose/Lactated Ringer's (D5-Lr -) 1,000 mls @ 42 mls/hr IV ASDIR [facility] Last Admin: 05/12/19 06:04 Dose: Not Given Piperacillin Sod/Tazobactam (Sod 3.375 gm/ Dextrose) 50 mls @ 100 mls/hr IVPB Q8H-IV [facility]; Protocol Last Admin: 05/12/19 17:12 Dose: 100 mls/hr Latanoprost (Xalatan 0.005% Eye Drops -) 1 drop OU HS [facility] Last Admin: 05/11/19 21:40 Dose: 1 drop Levalbuterol HCl (Xopenex) 0.31 mg IH Q8H PRN PRN Reason: ASTHMA Metoclopramide HCl (Reglan Oral Solution -) 5 mg PEG TIDAC [facility] Last Admin: 05/12/19 17:12 Dose: 5 mg Metoprolol Tartrate (Lopressor -) 100 mg GT BID [facility] Last Admin: 05/12/19 10:41 Dose: 100 mg Miscellaneous (Duragesic Patch Waste) 1 each TD PRN PRN PRN Reason: PATCH REMOVAL Multivitamins/Minerals (Certavite-Antioxidant Liquid) 15 ml PEG DAILY [facility] Last Admin: 05/12/19 10:31 Dose: 15 ml Mupirocin (Bactroban Ointment (For Decolonization) -) 1 applic NS BID [facility] Stop: 05/13/19 21:59 Last Admin: 05/12/19 10:30 Dose: 1 applic Nystatin (Nystop Powder -) 1 applic TP TID [facility] Last Admin: 05/12/19 17:12 Dose: 1 applic Oxycodone HCl (Roxicodone -) 5 mg GT DAILY [facility] Last Admin: 05/12/19 10:28 Dose: 5 mg Sodium Bicarbonate (Sodium Bicarbonate -) 650 mg GT DAILY [facility] Last Admin: 05/12/19 10:29 Dose: 650 mg Sodium Chloride (Normal Saline For Inhalation -) 3 ml IH Q6H PRN PRN Reason: COUGH Verapamil HCl (Calan -) 80 mg PEG TID [facility] Last Admin: 05/12/19 17:12 Dose: 80 mg - Objective Vital Signs: Vital Signs Temperature 99 F 05/12/19 16:00 Pulse Rate 90 05/12/19 16:00 Respiratory Rate 22 H 05/12/19 16:00 Blood Pressure 112/63 05/12/19 16:00 O2 Sat by Pulse Oximetry (%) 98 05/12/19 13:14 Labs: CBC, BMP 05/12/19 09:14 05/12/19 09:14 INR, PTT INR 1.47 (0.83-1.09) H 05/08/19 18:24 Problem List - Problems (1) Atrial flutter Code(s): I48.92 - UNSPECIFIED ATRIAL FLUTTER Qualifiers: Atrial flutter type: typical Qualified Code(s): I48.3 - Typical atrial flutter (2) Decubitus ulcer of sacral region, stage 4 Code(s): L89.154 - PRESSURE ULCER OF SACRAL REGION, STAGE 4 (3) Functional quadriplegia Code(s): R53.2 - FUNCTIONAL QUADRIPLEGIA (4) Acute and chronic respiratory failure Code(s): J96.20 - ACUTE AND CHR RESP FAILURE, UNSP W HYPOXIA OR HYPERCAPNIA (5) Anemia Code(s): D64.9 - ANEMIA, UNSPECIFIED (6) Urinary retention Code(s): R33.9 - RETENTION OF URINE, UNSPECIFIED
[2019-05-12] MEDS: LATANOPROST 0.005% OPHTH SOLN 2.5ML BOTTLE OU SCH (21:23)
[2019-05-13] MEDS ORDERED: DEXTROSE 5%-WATER - 50 ML IVPB ONE ×2 (01:33→08:46)
[2019-05-13] MEDS ORDERED: PIPERACILLIN/TAZOBACTAM 3.375 GM VIAL IVPB ONE ×2 (01:33→08:46)
[2019-05-13] MEDS: PIPERACILLIN/TAZOB 3.375 GM 3.375 GM in DEXTROSE 5%-WATER - 50 ML IVPB SCH ×2 (01:39→09:42)
[2019-05-13] MEDS: NYSTATIN POWDER 100,000 UNITS/GM - 15 GM TOPICAL POWDER TP SCH ×2 (06:13→14:23)
[2019-05-13] MEDS: VERAPAMIL HCL 80 MG TABLET PEG SCH ×2 (06:14→14:23)
[2019-05-13] MEDS: FUROSEMIDE 40 MG/5 ML UNIT-DOSE CUP GT SCH ×2 (06:14→14:23)
[2019-05-13] MEDS: METOCLOPRAMIDE HCL 5 MG/5 ML UNIT DOSE CUP PEG SCH ×2 (06:14→12:05)
[2019-05-13] MEDS: DEXTROSE 5%-LACTATED RINGERS 1,000 ML IV SCH (06:15)
[2019-05-13 06:57] LABS: BASO % 0.6 % (0-2.0); HEMOGLOBIN 9.6 GM/dL (11.7-16.9); LYMPH % 2.9 % (8-40); MCH 32.3 pg (25.7-33.7); MEAN CELL VOLUME 97.7 fl (80-96); MEAN PLT VOLUME 9.4 fl (7.5-11.1); MONO % 5.4 % (3.8-10.2); NEUT % 89.1 % (42.8-82.8); PLATELET COUNT 177 K/MM3 (134-434); RBC 2.97 M/mm3 (4.00-5.60); RDW 25.6 % (11.9-15.9); WHITE BLOOD COUNT 12.3 K/mm3 (4.0-10.0)
[2019-05-13 08:01] LABS: ALBUMIN 0.9 g/dl (3.4-5.0); BILIRUBIN,TOTAL 0.6 mg/dL (0.2-1); BLOOD UREA NITROGEN 47.5 mg/dL (7-18); CALCIUM 7.3 mg/dL (8.5-10.1); CREATININE 1.5 mg/dL (0.55-1.3); PHOSPHOROUS 3.3 mg/dL (2.5-4.9); POTASSIUM 3.9 mmol/L (3.5-5.1); TOT PROT 6.4 g/dl (6.4-8.2)
[2019-05-13] MEDS: AMINO ACIDS/PROTEIN HYDROLYS 30 ML LIQUID.PKT GT SCH (08:51)
[2019-05-13] MEDS: ACETYLCYSTEINE 20% 200MG/ML 4 ML VIAL *FOR ORAL / INH USE ONLY NEB SCH (09:07)
[2019-05-13] MEDS: METOPROLOL TARTRATE 50 MG TABLET (FP) GT SCH (09:43)
[2019-05-13] MEDS: HEPARIN NA (PORCINE) 5,000 UNITS/ML 1ML VIAL SQ SCH (09:44)
[2019-05-13] MEDS: FINASTERIDE 5 MG TABLET (FP) PO SCH (09:44)
[2019-05-13] MEDS: SODIUM BICARBONATE 650 MG TABLET GT SCH (09:45)
[2019-05-13] MEDS: ASCORBIC ACID 500 MG TABLET (FP) GT SCH (09:45)
[2019-05-13] MEDS: oxyCODONE HCL 5 MG TABLET GT SCH (09:45)
[2019-05-13] MEDS: ARTIFICIAL TEARS (POLYVINYL ALCOHOL) OPTH DROPS OU SCH ×2 (10:30→14:24)
[2019-05-13] MEDS: BACITRACIN 15 GM TUBE TOPICAL OINTMENT TP SCH (10:30)
--- NOTE | 2019-05-13 11:19 | DS ---
Physical Examination Vital Signs: Vital Signs Temperature 98.1 F 05/13/19 10:00 Pulse Rate 76 05/13/19 10:00 Respiratory Rate 20 05/13/19 10:00 Blood Pressure 117/65 05/13/19 10:00 O2 Sat by Pulse Oximetry (%) 100 05/12/19 21:00 Cardiovascular: Yes: Pulse Irregular Respiratory: Yes: Mechanically Ventilated Gastrointestinal: Yes: Soft, Other Labs: CBC, BMP 05/13/19 06:00 05/13/19 06:00 Discharge Summary Problems reviewed: Yes Reason For Visit: FEVER/SEPSIS/ATR FLUTTER/PRESSURE INJURY OF SACRAL Current Active Problems Atrial flutter (Acute) Decubitus ulcer of sacral region, stage 4 (Acute) Functional quadriplegia (Acute) Urinary retention (Acute) Hospital Course: admitted sepsis, treated with iv antibiotics. patient is colonized and does need a picc line with joint terminal attack controller iv abx. switch po augmentin 7 days total Goals: 7 days of augmentin Condition: Fair - Instructions Diet, Activity, Other Instructions: GTUBE NUTRITION AUGMENTIN BID 7 DAYS Referrals: Dread Lima MD [Primary Care Provider] - Disposition: [facility] - Home Medications Comprehensive Discharge Medication List: Ambulatory Orders Finasteride 5 mg GT DAILY 03/31/19 Latanoprost/Pf [Latanoprost 0.005% Eye Drop] 1 drop OP HS 03/31/19 Bimatoprost [Lumigan] 1 drop OU DAILY 04/26/19 Acetylcysteine Po/INH 20% [Mucomyst 20 Oral / INH Use Only*] 400 mg NEB RBID vial 05/06/19 Albuterol 0.083% Nebulizer Jossie [Ventolin 0.083% Nebulizer Soln -] 1 amp NEB RQ4H amp 05/06/19 Amino Acids/Protein Hydrolys [Prosource No Carb Liquid Pkt] 30 ml GT BID@0800, 1730 packet 05/06/19 Ascorbic Acid [Vitamin C -] 500 mg GT BID tablet 05/06/19 Bacitracin - [Bacitracin Topical Ointment -] 1 applic TP BID tube 05/06/19 Buspirone HCl [Buspar -] 5 mg PO TID PRN tablet 05/06/19 Diltiazem [Cardizem -] 60 mg PO BID tablet 05/06/19 FENTANYL 12mcg PATCH [DURAGESIC 12mcg PATCH -] 1 patch TD Q72H #0 patch.td72 MDD 1 05/06/19 Fentanyl Patch Waste [Duragesic Patch Waste] 1 each MC PRN PRN each 05/06/19 Metoclopramide Oral Soln [Reglan Oral Solution -] 5 mg PEG TIDAC udc 05/06/19 Metoprolol Tartrate [Lopressor -] 100 mg PO BID tablet 05/06/19 Multivit-Minerals [Certavite-Antioxidant Liquid] 15 ml PEG DAILY cup 05/06/19 Nystatin Powder [Nystop Powder -] 1 applic TP TID applic 05/06/19 Pantoprazole Suspension [Protonix Packets For Oral Suspension -] 40 mg NGT DAILY packet 05/06/19 Polyvinyl Alcohol [Artificial Tears] 1 drop OU QID drops 05/06/19 Sodium Bicarbonate - 650 mg GT DAILY tablet 05/06/19 Sodium Chloride Inhalation [Normal Saline For Inhalation -] 3 ml IH Q6H PRN vial.neb 05/06/19 Aa/Hydrolyzed Collagen, Whey [Lps 15-30 Liquid] 30 ml GT BID 05/08/19 Acetaminophen Oral Solution [Tylenol Oral Solution -] 650 mg GT Q4H PRN Oxycodone HCl 5 mg GT DAILY 05/08/19
[2019-05-13] MEDS: MUPIROCIN 2% TOPICAL OINTMENT FOR DECOLONIZATION NS SCH (11:25)
[2019-05-13] MEDS ORDERED: PT OWN MED DRAWER 7, Y5N ONE ×3 (11:30→14:31)
[2019-05-13] MEDS: MULTIVIT-MINERALS ORAL LIQUID PEG SCH (12:04)
[2019-05-13] MEDS: FAMOTIDINE 40 MG/5 ML ORAL SUSPENSION NGT SCH (12:06)
--- NOTE | 2019-05-13 12:36 | PN ---
Teaching Attending Note Name of Resident: Kenroy Johnson ATTENDING PHYSICIAN STATEMENT I saw and evaluated the patient. I reviewed the resident's note and discussed the case with the resident. I agree with the resident's findings and plan as documented. SUBJECTIVE: Pt seen and examined in the ICU. Vented, awake. No fevers recorded. OBJECTIVE: Vital Signs Period Temp Pulse Resp BP Sys/Kang Pulse Ox Last 24 Hr 98 F-99 F 70-101 18-24 112-120/60-78 98-100 Intake & Output 05/10/19 05/11/19 05/12/19 05/13/19 23:59 23:59 23:59 23:59 Intake Total 9374 109 8904 Output Total 1700 1250 2200 Balance -46 -688 587 Weight 92.533 kg 92.4 kg 98.3 kg 96.343 kg Gen: vented, awake Heart: irregular Lung: scattered rhonchi Abd: soft, nontender Ext: + edema CBC, BMP 05/13/19 06:00 05/13/19 06:00 Active Medications Acetaminophen (Tylenol Oral Solution -) 650 mg GT Q4H PRN PRN Reason: FEVER Acetylcysteine (Mucomyst 20 Oral / Inh Use Only*) 400 mg NEB RBID [facility] Last Admin: 05/13/19 09:07 Dose: 400 mg Amino Acids (Prosource No Carb Liquid Pkt) 30 ml GT BID@0800,1730 [facility] Last Admin: 05/13/19 08:51 Dose: 30 ml Amoxicillin/Clavulanate Potassium (Augmentin 600 Mg/5 Ml Oral Suspension -) 600 mg PO BID@0800,1730 [facility] Artificial Tears (Artificial Tears) 1 drop OU QID [facility] Last Admin: 05/13/19 10:30 Dose: 1 drp Ascorbic Acid (Vitamin C -) 500 mg GT BID [facility] Last Admin: 05/13/19 09:45 Dose: 500 mg Bacitracin (Bacitracin -) 1 applic TP BID [facility] Last Admin: 05/13/19 10:30 Dose: 1 applic Buspirone HCl (Buspar -) 5 mg PO TID PRN PRN Reason: ANXIETY Famotidine (Pepcid) 20 mg NGT BID [facility] Last Admin: 05/13/19 12:06 Dose: 20 mg Fentanyl (Duragesic 12mcg Patch -) 1 patch TD Q72H [facility] Last Admin: 05/12/19 11:26 Dose: 1 patch Finasteride (Proscar -) 5 mg PO DAILY [facility] Last Admin: 05/13/19 09:44 Dose: 5 mg Furosemide (Lasix Oral Solution -) 40 mg GT BID@0600,1400 [facility] Last Admin: 05/13/19 06:14 Dose: 40 mg Heparin Sodium (Porcine) (Heparin -) 5,000 unit SQ BID [facility] Last Admin: 05/13/19 09:44 Dose: 5,000 unit Dextrose/Lactated Ringer's (D5-Lr -) 1,000 mls @ 42 mls/hr IV ASDIR [facility] Last Admin: 05/13/19 06:15 Dose: 42 mls/hr Latanoprost (Xalatan 0.005% Eye Drops -) 1 drop OU HS [facility] Last Admin: 05/12/19 21:23 Dose: 1 drop Levalbuterol HCl (Xopenex) 0.31 mg IH Q8H PRN PRN Reason: ASTHMA Last Admin: 05/13/19 09:07 Dose: 0.31 mg Metoclopramide HCl (Reglan Oral Solution -) 5 mg PEG TIDAC [facility] Last Admin: 05/13/19 12:05 Dose: 5 mg Metoprolol Tartrate (Lopressor -) 100 mg GT BID [facility] Last Admin: 05/13/19 09:43 Dose: 100 mg Miscellaneous (Duragesic Patch Waste) 1 each TD PRN PRN PRN Reason: PATCH REMOVAL Multivitamins/Minerals (Certavite-Antioxidant Liquid) 15 ml PEG DAILY [facility] Last Admin: 05/13/19 12:04 Dose: 15 ml Mupirocin (Bactroban Ointment (For Decolonization) -) 1 applic NS BID [facility] Stop: 05/13/19 21:59 Last Admin: 05/13/19 11:25 Dose: 1 applic Nystatin (Nystop Powder -) 1 applic TP TID [facility] Last Admin: 05/13/19 06:13 Dose: 1 applic Oxycodone HCl (Roxicodone -) 5 mg GT DAILY [facility] Last Admin: 05/13/19 09:45 Dose: 5 mg Sodium Bicarbonate (Sodium Bicarbonate -) 650 mg GT DAILY [facility] Last Admin: 05/13/19 09:45 Dose: 650 mg Sodium Chloride (Normal Saline For Inhalation -) 3 ml IH Q6H PRN PRN Reason: COUGH Verapamil HCl (Calan -) 80 mg PEG TID [facility] Last Admin: 05/13/19 06:14 Dose: 80 mg ASSESSMENT AND PLAN: Chronic Respiratory Failure Atrial Fibrillation with RVR UTI Sacral Decubitus Ulcer COPD CAD s/p CABG CKD Anemia - rate control - continue anticoagulation - antibiotics per ID - f/u cultures - volume assist control - inhaled bronchodilators - enteral feeds - DVT/GI prophylaxis - can monitor on vent floor
[2019-05-13 13:17] VITALS: PULSE 76; TEMP 98.5
[2019-05-13 15:26] VITALS: BP 116/67
--- NOTE | 2019-05-13 16:41 | PN ---
Progress Note, Physician History of Present Illness: AWAKE ON VENTILATOR AFEBRILE WBC REMAINS sl ELEVATED URINE C/S NLF SPUTUM C/S MIXED - Current Medication List Current Medications: Active Medications Acetaminophen (Tylenol Oral Solution -) 650 mg GT Q4H PRN PRN Reason: FEVER Acetylcysteine (Mucomyst 20 Oral / Inh Use Only*) 400 mg NEB RBID [facility] Last Admin: 05/13/19 09:07 Dose: 400 mg Amino Acids (Prosource No Carb Liquid Pkt) 30 ml GT BID@0800,1730 [facility] Last Admin: 05/13/19 08:51 Dose: 30 ml Amoxicillin/Clavulanate Potassium (Augmentin 600 Mg/5 Ml Oral Suspension -) 600 mg PO BID@0800,1730 [facility] Artificial Tears (Artificial Tears) 1 drop OU QID [facility] Last Admin: 05/13/19 14:24 Dose: 1 drp Ascorbic Acid (Vitamin C -) 500 mg GT BID [facility] Last Admin: 05/13/19 09:45 Dose: 500 mg Bacitracin (Bacitracin -) 1 applic TP BID [facility] Last Admin: 05/13/19 10:30 Dose: 1 applic Buspirone HCl (Buspar -) 5 mg PO TID PRN PRN Reason: ANXIETY Famotidine (Pepcid) 20 mg NGT BID [facility] Last Admin: 05/13/19 12:06 Dose: 20 mg Fentanyl (Duragesic 12mcg Patch -) 1 patch TD Q72H [facility] Last Admin: 05/12/19 11:26 Dose: 1 patch Finasteride (Proscar -) 5 mg PO DAILY [facility] Last Admin: 05/13/19 09:44 Dose: 5 mg Furosemide (Lasix Oral Solution -) 40 mg GT BID@0600,1400 [facility] Last Admin: 05/13/19 14:23 Dose: 40 mg Heparin Sodium (Porcine) (Heparin -) 5,000 unit SQ BID [facility] Last Admin: 05/13/19 09:44 Dose: 5,000 unit Dextrose/Lactated Ringer's (D5-Lr -) 1,000 mls @ 42 mls/hr IV ASDIR [facility] Last Admin: 05/13/19 06:15 Dose: 42 mls/hr Latanoprost (Xalatan 0.005% Eye Drops -) 1 drop OU HS [facility] Last Admin: 05/12/19 21:23 Dose: 1 drop Levalbuterol HCl (Xopenex) 0.31 mg IH Q8H PRN PRN Reason: ASTHMA Last Admin: 05/13/19 09:07 Dose: 0.31 mg Metoclopramide HCl (Reglan Oral Solution -) 5 mg PEG TIDAC [facility] Last Admin: 05/13/19 12:05 Dose: 5 mg Metoprolol Tartrate (Lopressor -) 100 mg GT BID [facility] Last Admin: 05/13/19 09:43 Dose: 100 mg Miscellaneous (Duragesic Patch Waste) 1 each TD PRN PRN PRN Reason: PATCH REMOVAL Multivitamins/Minerals (Certavite-Antioxidant Liquid) 15 ml PEG DAILY [facility] Last Admin: 05/13/19 12:04 Dose: 15 ml Mupirocin (Bactroban Ointment (For Decolonization) -) 1 applic NS BID [facility] Stop: 05/13/19 21:59 Last Admin: 05/13/19 11:25 Dose: 1 applic Nystatin (Nystop Powder -) 1 applic TP TID [facility] Last Admin: 05/13/19 14:23 Dose: 1 applic Oxycodone HCl (Roxicodone -) 5 mg GT DAILY [facility] Last Admin: 05/13/19 09:45 Dose: 5 mg Sodium Bicarbonate (Sodium Bicarbonate -) 650 mg GT DAILY [facility] Last Admin: 05/13/19 09:45 Dose: 650 mg Sodium Chloride (Normal Saline For Inhalation -) 3 ml IH Q6H PRN PRN Reason: COUGH Verapamil HCl (Calan -) 80 mg PEG TID [facility] Last Admin: 05/13/19 14:23 Dose: 80 mg - Objective Vital Signs: Vital Signs Temperature 98.5 F 05/13/19 14:00 Pulse Rate 76 05/13/19 14:00 Respiratory Rate 05/13/19 16:04 Blood Pressure 116/67 05/13/19 14:00 O2 Sat by Pulse Oximetry (%) 100 05/12/19 21:00 Constitutional: Yes: No Distress Eyes: Yes: Conjunctiva Clear Cardiovascular: Yes: Regular Rate and Rhythm, S1, S2 Respiratory: Yes: Mechanically Ventilated Gastrointestinal: Yes: Normal Bowel Sounds, Soft. No: Tenderness Edema: Yes Integumentary: Yes: Other (sacral decubitus ulcer) Labs: CBC, BMP 05/13/19 06:00 05/13/19 06:00 INR, PTT INR 1.47 (0.83-1.09) H 05/08/19 18:24 Assessment/Plan SEPSIS IMPROVED SACRAL DECUBITUS ULCER HX MDRO RENAL FAILURE CHRONIC RESP FAILURE SUSPECT SPUTUM AND URINE ISOLATES REPRESENT COLONIZATION IN THIS CHRONICALLY DEBILITATED PATIENT SUBSTITUTE AUGMENTIN VIA GT X 7D
[2019-05-13] MEDS ORDERED: AMOX TR/POTASSIUM CLAVULANATE 600 MG/5 ML PO SCH (17:30)
--- NOTE | 2019-05-13 17:30 | PN ---
Physical Exam: SUBJECTIVE:Patient seen and examined in the morning. No events overnight. No events on cardiac monitoring. Patient shakes his head no to questions regarding chest pain, abdominal pain, and shortness of breath. OBJECTIVE: Vital Signs Period Temp Pulse Resp BP Sys/Kang Pulse Ox Last 24 Hr 98 F-98.6 F 70-76 18-22 115-120/60-78 100-100 GENERAL: The patient is awake, alert and in no acute distress. HEAD: Trached to vent, PERRLA EYES: PERRL, extraocular movements intact, sclera anicteric, conjunctiva clear. No ptosis. LUNGS: Scattered rhonchi. HEART: Irregularly, irregular. Systolic murmur 3/6 ABDOMEN: Soft, nontender. Peg tube in place. EXTREMITIES: small hematomas present b/l UE & LE. 2+ pitting edema b/l SKIN: chronic sacral ulcer. Laboratory Results - last 24 hr 05/08/19 05/13/19 05/13/19 20:08 06:00 06:00 WBC 12.3 H RBC 2.97 L Hgb 9.6 L Hct 29.0 L MCV 97.7 H MCH 32.3 MCHC 33.0 RDW 25.6 H Plt Count 177 MPV 9.4 Absolute Neuts (auto) 11.0 H Neutrophils % 89.1 H Lymphocytes % 2.9 L D Monocytes % 5.4 Eosinophils % 2.0 Basophils % 0.6 Nucleated RBC % 0 Sodium 145 Potassium 3.9 Chloride 108 H Carbon Dioxide 30 Anion Gap 6 L BUN 47.5 H Creatinine 1.5 H Est GFR (CKD-EPI)AfAm 49.54 Est GFR (CKD-EPI)NonAf 42.74 Random Glucose 93 Calcium 7.3 L Phosphorus 3.3 Magnesium 2.0 Total Bilirubin 0.6 AST 80 H ALT 46 Alkaline Phosphatase 259 H Total Protein 6.4 Albumin 0.9 L Blood Type O NEGATIVE Antibody Screen Negative Crossmatch See Detail ASSESSMENT/PLAN: 83 M PMH CABG, HTN, HLD, ESRD (b/l nephrostomy tubes removed 04/28/2019), COPD s/p trach/vent, PEG tube, DM, anemia presented for tachycardia. 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 -Sputum shows pseudomonas and non lactose fermenting GNB. -Vancomycin and gentamicin given. -bryant changed -DC with augmentin GT for 7 days. -ID consulted, appreciate recs Renal -ESRD -S/p bilateral nephrostomy tube by Urology 04/28/2019 -Finasteride, lasix -Remove Bryant Heme/Onc -Hgb 7.9 s/p 1 unit PRBC -1 units PRBC today -Holding A/C for potential bleed -Monitor H&H DVT: Heparin SubQ Lines: On chronic tracheostomy. Bryant changed on 05/08. No central line. Dispo: Discharge to [place]. Visit type - Emergency Visit Emergency Visit: Yes ED Registration Date: 05/08/19 Care time: The patient presented to the Emergency Department on the above date and was hospitalized for further evaluation of their emergent condition. - New Patient This patient is new to me today: No - Critical Care Critical Care patient: Yes Total Critical Care Time (in minutes): 45 Critical Care Statement: The care of this patient involved high complexity decision making to prevent further life threatening deterioration of the patient's condition and/or to evaluate & treat vital organ system(s) failure or risk of failure. ATTENDING PHYSICIAN STATEMENT I saw and evaluated the patient. I reviewed the resident's note and discussed the case with the resident. I agree with the resident's findings and plan as documented. SUBJECTIVE: OBJECTIVE: ASSESSMENT AND PLAN:
== END 2019-05-13 17:12 | DRG 870 ==
LOC: JER 16:56 → JERBED 19:19 → JICU 23:15 → J8W 05-12 17:05 → JICU 05-12 17:13
PROVIDERS: ADMIT Internal Medicine; ATTEND Family Medicine
PROC: 5A1955Z Respiratory Ventilation, Greater than 96 Consecutive Hours (ICD-10-PCS; principal; 2019-05-08)
DX: A41.9 Sepsis, unspecified organism (principal); L89.154 Pressure ulcer of sacral region, stage 4; N18.6 End stage renal disease; R53.2 Functional quadriplegia; J96.20 Acute and chronic respiratory failure, unspecified whether with hypoxia or hypercapnia; J18.9 Pneumonia, unspecified organism; I12.0 Hypertensive chronic kidney disease with stage 5 chronic kidney disease or end stage renal disease; I48.3 Typical atrial flutter; J98.11 Atelectasis; N39.0 Urinary tract infection, site not specified; R50.9 Fever, unspecified; I48.91 Unspecified atrial fibrillation; E78.5 Hyperlipidemia, unspecified; R33.9 Retention of urine, unspecified; J44.9 Chronic obstructive pulmonary disease, unspecified; E11.9 Type 2 diabetes mellitus without complications; D64.9 Anemia, unspecified; R00.0 Tachycardia, unspecified; I25.10 Atherosclerotic heart disease of native coronary artery without angina pectoris; Z99.2 Dependence on renal dialysis; Z93.0 Tracheostomy status; Z95.1 Presence of aortocoronary bypass graft; Z93.6 Other artificial openings of urinary tract status
CPT/HCPCS: 36415; 36430; 36511; 71045-TC-FY; 80048; 80053; 81003; 82803; 83605; 83735; 83880; 84100; 84484; 85025; 85610; 85730; 86850; 86900; 86901; 86922; 87040; 87070; 87086; 87186; 87205; 93005; 93010; 94002; 94640; 99285-25; J0131; J1644; P9038; P9058

== ENCOUNTER 2019-05-17 22:08 | Emergency (ER) | payer MEDICARE, OTHER ==
[2019-05-17 22:30] VITALS: TEMP 98.8; BMI 28.8
--- NOTE | 2019-05-17 23:13 | PDOC ---
History of Present Illness - General Chief Complaint: Respiratory Stated Complaint: MED EVAL Time Seen by Provider: 05/17/19 22:25 History Source: Patient Exam Limitations: No Limitations - History of Present Illness Initial Comments: 05/17/19 23:12 HPI: 83 y/o M hx of CABG, HTN, HLD, ESRD s/p Nephrostomy Tubes, COPD s/p Trach/ Vent Dependent, Pneumonia, PEG-tube, sacral decubitus ulcers, presenting for transient desaturation. Patient was recently admitted to this hospital for PNA ( discharged 05/13/19) sent with 7 days of Augmentin. He presents from [facility] brought in by EMS for O2Sat 86% at the facility that resolved to 100% s/p suctioning. Patient unable to contribute history as he has a Trach. No fevers or respiratory distress noted, mild tachycardia to 105 after transfer to hospital bed. Per [place] paperwork, concern for respiratory failure. All: Chlorhexidine Meds: Per chart PMH: As above PSH: As above Past History - Travel Traveled outside of the country in the last 30 days: No Close contact w/someone who was outside of country & ill: No - Past Medical History Allergies/Adverse Reactions: Allergies Allergy/AdvReac Type Severity Reaction Status Date / Time chlorhexidine Allergy Verified 05/17/19 22:30 Home Medications: Ambulatory Orders Finasteride 5 mg GT DAILY 03/31/19 Latanoprost/Pf [Latanoprost 0.005% Eye Drop] 1 drop OP HS 03/31/19 Bimatoprost [Lumigan] 1 drop OU DAILY 04/26/19 Acetylcysteine Po/INH 20% [Mucomyst 20 Oral / INH Use Only*] 400 mg NEB RBID vial 05/06/19 Albuterol 0.083% Nebulizer Jossie [Ventolin 0.083% Nebulizer Soln -] 1 amp NEB RQ4H amp 05/06/19 Amino Acids/Protein Hydrolys [Prosource No Carb Liquid Pkt] 30 ml GT BID@0800, 1730 packet 05/06/19 Ascorbic Acid [Vitamin C -] 500 mg GT BID tablet 05/06/19 Bacitracin - [Bacitracin Topical Ointment -] 1 applic TP BID tube 05/06/19 Buspirone HCl [Buspar -] 5 mg PO TID PRN tablet 05/06/19 Diltiazem [Cardizem -] 60 mg PO BID tablet 05/06/19 FENTANYL 12mcg PATCH [DURAGESIC 12mcg PATCH -] 1 patch TD Q72H #0 patch.td72 MDD 1 05/06/19 Fentanyl Patch Waste [Duragesic Patch Waste] 1 each MC PRN PRN each 05/06/19 Metoclopramide Oral Soln [Reglan Oral Solution -] 5 mg PEG TIDAC udc 05/06/19 Metoprolol Tartrate [Lopressor -] 100 mg PO BID tablet 05/06/19 Multivit-Minerals [Certavite-Antioxidant Liquid] 15 ml PEG DAILY cup 05/06/19 Nystatin Powder [Nystop Powder -] 1 applic TP TID applic 05/06/19 Pantoprazole Suspension [Protonix Packets For Oral Suspension -] 40 mg NGT DAILY packet 05/06/19 Polyvinyl Alcohol [Artificial Tears] 1 drop OU QID drops 05/06/19 Sodium Bicarbonate - 650 mg GT DAILY tablet 05/06/19 Sodium Chloride Inhalation [Normal Saline For Inhalation -] 3 ml IH Q6H PRN vial.[email or web address] 05/06/19 Aa/Hydrolyzed Collagen, Whey [Lps 15-30 Liquid] 30 ml GT BID 05/08/19 Acetaminophen Oral Solution [Tylenol Oral Solution -] 650 mg GT Q4H PRN Oxycodone HCl 5 mg GT DAILY 05/08/19 Acetylcysteine Po/INH 20% [Mucomyst 20 Oral / INH Use Only*] 400 mg NEB RBID vial 05/13/19 Amox-Tr/K Cl [Augmentin 500-125mg Tablet -] 1 tab PO BID #14 tab 05/13/19 Furosemide Oral Solution [Lasix Oral Solution -] 40 mg GT BID@0600,1400 ud[facility] Heparin - 5,000 unit SQ BID vial 05/13/19 Levalbuterol HCl [Xopenex] 0.31 mg IH Q8H PRN vial.[facility] 05/13/19 Mupirocin Ointment [Bactroban Ointment (For Decolonization) -] 1 applic NS BID applic 05/13/19 Verapamil HCl [Calan -] 80 mg PEG TID tablet 05/13/19 Anemia: Yes COPD: Yes (trach) Diabetes: Yes HTN: Yes Hypercholesterolemia: Yes Psychiatric Problems: Yes - Surgical History Cardiac Surgery: Yes (CABG) - Psycho Social/Smoking Cessation Hx Smoking History: Never smoked Have you smoked in the past 12 months: No Hx Alcohol Use: No Drug/Substance Use Hx: No Review of Systems - Review of Systems Able to Perform ROS?: No (trach) *Physical Exam - Vital Signs Last Vital Signs Temp Pulse Resp BP Pulse Ox 98.8 F 105 H 31 H 116/84 100 05/17/19 22:10 05/17/19 22:10 05/17/19 22:30 05/17/19 22:10 05/17/19 22:10 - Physical Exam 05/17/19 23:25 Vitals reviewed, AF (98 rectal), notable for borderline tachycardia GEN: Trached, Vented, No acute distress, appears stated age, comfortable. HEENT: NCAT, EOMI, PERRL. Trach in place. Sclera anicteric, non-injected. Moist mucous membranes. CV: RRR, S1/S2, no murmurs / rubs / gallops appreciated - difficult to assess 2/ 2 mechanical respirations LUNG: Mechanical respirations CTAB. No wheezes, rales, rhonchi. O2 Sat 97-100% on vent. Scattered rhonchi. GI: Soft, NTND, +BS, no guarding, no rebound. EXTREMITIES: +LE edema extending to the abdomen. Multiple ecchymoses and superficial wounds throughout arms. SKIN: Warm, dry, non-jaundiced. PSYCH: Unable to assess. NEURO: CN grossly intact. Eyes tracking. Alert. 05/17/19 23:58 - HR in the mid 90s. - Saturation 100% - Remains alert and interactive ED Treatment Course - RADIOLOGY Radiology Studies Ordered: Category Date Time Status CXRPORT [CHEST X-RAY PORTABLE*] [RAD] Stat Radiology 05/17/19 22:36 Ordered Medical Decision Making - Medical Decision Making 05/17/19 23:33 83 y/o M hx of CABG, HTN, HLD, ESRD s/p Nephrostomy Tubes, COPD s/p Trach/Vent Dependent, Pneumonia, PEG-tube, sacral decubitus ulcers, presenting for transient desaturation. Patient satting 100% in the department, baseline exam per family and chart. Will obtain chest xray, monitor saturation. - CXR - ABG - Pulse Ox monitoring 05/17/19 23:45 - CXR without clear infiltrate or effusion, similar to 05/08 film, large hear, sternal hardware - Respiratory therapy at bedside attempting ABG 05/17/19 23:58 - HR in the mid 90s - Saturation 100% - Remains alert and interactive - Family at bedside; they report his HR (90s) is much better than usual (110s- 120s) 05/18/19 00:51 - Continuing to monitor, patient still tracking with eyes - 100% O2 Sat - Duoneb ordered given family concern, receives NS Nebs q6 at home Dispo: Return to [facility] 05/18/19 02:44 - Patient leaving department, in afib, rates 120s-150s - Called Jessica, patient missed PM Cardizem 60 mg dose - 60 mg Cardizem given via PEG - Family at bedside reporting that increased rate likely related to severe pain with transfer onto stretcher, state that this occurs with transfers due to his sacral ulcers - Percocet given via PEG prior to departure - Adira called, discussion had regarding increased rate, known afib, medication and pain control provided - Of note, rate irregular (pt on rate control, not rhythm), strip averaging 100- 110s rate even with elevated fluctuations Dispo: [place] [place] Discharge - Discharge Information Problems reviewed: Yes Clinical Impression/Diagnosis: Ventilator dependence Condition: Improved Disposition: HOME - Admission No - Follow up/Referral Referrals: Derad Lima MD [Primary Care Provider] - - Patient Discharge Instructions Additional Instructions: Patient seen and evaluated for hypoxia earlier today. Please continue all prescription medications as directed. Continue care per [place] medical staff. Return to the ED for any new or concerning symptoms. - Post Discharge Activity
[2019-05-17] MEDS ORDERED: ALBUTEROL SO4 2.5/IPRATROPIUM 0.5 INH SOL 3 ML VIAL.NEB. NEB ONE (23:18)
--- NOTE | 2019-05-18 00:52 | PDOC ---
Documentation entered by Fazal Yoon SCRIBE, acting as scribe for Shahla Zelaya MD. Shahla Zelaya MD: This documentation has been prepared by the Car boyd Xhesika, SCRIBE, under my direction and personally reviewed by me in its entirety. I confirm that the documentation accurately reflects all work, treatment, procedures, and medical decision making performed by me. Attending Attestation - Resident Resident Name: ArnieRafael - ED Attending Attestation I have performed the following: I have examined & evaluated the patient, The case was reviewed & discussed with the resident, I agree w/resident's findings & plan, Exceptions are as noted - HPI HPI: 05/17/19 22:50 The patient is a year 83 old male with no significant PMH of CABG, HTN, HLD, ESRD s/p Nephrostomy Tubes, COPD s/p Trach/Vent Dependent, Pneumonia, PEG Placement, DM, Anemia who presents to the emergency department [facility] for tachycardia and desaturation that resolved prior to arrival. Pt is a poor historian and nonverbal. Allergies: Chlorhexidine - Physicial Exam PE: 05/17/19 22:51 GENERAL: Awake, alert, non verbal HEAD: No signs of trauma EYES: PERRLA, EOMI, sclera anicteric, conjunctiva clear: NECK trach in place, connected to vent LUNGS: +rhonchi HEART:+tachycardia. no murmurs, rubs or gallops ABDOMEN: Soft, EXTREMITIES: +Diffuse anasarca b/l UE and LE NEUROLOGICAL: awake,tracks w eyes 05/18/19 00:37 - Medical Decision Making 05/18/19 00:39 Patient has not been hypoxic during his observation time Impression is that he might have had a mucous plug that resolved prior to arrival
[2019-05-18] MEDS ORDERED: dilTIAZem HCL 60 MG TABLET (FP) PO ONE (02:43)
[2019-05-18] MEDS ORDERED: dilTIAZem HCL 60 MG TABLET (FP) ONE (02:47)
[2019-05-18 03:33] VITALS: BP 117/79
[2019-05-18 07:16] VITALS: PULSE 115
== END 2019-05-18 03:42 ==
LOC: JER 22:08
PROC: 3E0F7GC Introduction of Other Therapeutic Substance into Respiratory Tract, Via Natural or Artificial Opening (ICD-10-PCS; principal; 2019-05-17)
DX: T17.890A Other foreign object in other parts of respiratory tract causing asphyxiation, initial encounter (principal); X58.XXXA Exposure to other specified factors, initial encounter; Y93.9 Activity, unspecified; Y92.122 Bedroom in nursing home as the place of occurrence of the external cause; I13.11 Hypertensive heart and chronic kidney disease without heart failure, with stage 5 chronic kidney disease, or end stage renal disease; N18.6 End stage renal disease; Z95.1 Presence of aortocoronary bypass graft; I48.91 Unspecified atrial fibrillation; E11.22 Type 2 diabetes mellitus with diabetic chronic kidney disease; D64.9 Anemia, unspecified; E78.5 Hyperlipidemia, unspecified; J44.9 Chronic obstructive pulmonary disease, unspecified; Z93.0 Tracheostomy status; L89.154 Pressure ulcer of sacral region, stage 4; Z93.1 Gastrostomy status; Z99.11 Dependence on respirator [ventilator] status; R60.1 Generalized edema; Z95.2 Presence of prosthetic heart valve; Z96.0 Presence of urogenital implants; Z87.01 Personal history of pneumonia (recurrent); Z88.0 Allergy status to penicillin
CPT/HCPCS: 71045-TC-FY; 94640; 99282-25

== ENCOUNTER 2019-06-09 12:50 | Inpatient (IN) | payer OTHER ==
--- NOTE | 2019-06-09 13:03 | PDOC ---
History of Present Illness - History of Present Illness Initial Comments: 06/09/19 13:01 83 yo M PMH CABG, HTN, HLD, ESRD s/p nephrostomy tubes, COPD s/p trach/vent dependent, recent PNA (discharged 05/13/19 on 7 days of Augmentin), PEG tube, sacral decubitus ulcers, sent from [facility] with tachypnea. Per paperwork, concern was potential PNA. Patient unable to provide history or ROS 2/2 to being vent dependent. Patient is DNR. <Juancho George - Last Filed: 06/09/19 17:28> - General History Source: EMS, Family, Jail Records <Stephanie Molina - Last Filed: 06/09/19 18:56> - General Stated Complaint: PNEUMONIA Time Seen by Provider: 06/09/19 12:59 Past History - Past Medical History Anemia: Yes COPD: Yes (trach) Diabetes: Yes HTN: Yes Hypercholesterolemia: Yes Psychiatric Problems: Yes - Surgical History Cardiac Surgery: Yes (CABG) - Psycho Social/Smoking Cessation Hx Smoking History: Never smoked Have you smoked in the past 12 months: No Hx Alcohol Use: No Drug/Substance Use Hx: No <Juancho George - Last Filed: 06/09/19 17:28> <Stephanie Molina - Last Filed: 06/09/19 18:56> - Past Medical History Allergies/Adverse Reactions: Allergies Allergy/AdvReac Type Severity Reaction Status Date / Time chlorhexidine Allergy Verified 05/17/19 22:30 Home Medications: Ambulatory Orders Finasteride 5 mg GT DAILY 03/31/19 Latanoprost/Pf [Latanoprost 0.005% Eye Drop] 1 drop OP HS 03/31/19 Bimatoprost [Lumigan] 1 drop OU DAILY 04/26/19 Acetylcysteine Po/INH 20% [Mucomyst 20 Oral / INH Use Only*] 400 mg NEB RBID vial 05/06/19 Albuterol 0.083% Nebulizer Jossie [Ventolin 0.083% Nebulizer Soln -] 1 amp NEB RQ4H amp 05/06/19 Amino Acids/Protein Hydrolys [Prosource No Carb Liquid Pkt] 30 ml GT BID@0800, 1730 packet 05/06/19 Ascorbic Acid [Vitamin C -] 500 mg GT BID tablet 05/06/19 Bacitracin - [Bacitracin Topical Ointment -] 1 applic TP BID tube 05/06/19 Buspirone HCl [Buspar -] 5 mg PO TID PRN tablet 05/06/19 Diltiazem [Cardizem -] 60 mg PO BID tablet 05/06/19 FENTANYL 12mcg PATCH [DURAGESIC 12mcg PATCH -] 1 patch TD Q72H #0 patch.td72 MDD 1 05/06/19 Fentanyl Patch Waste [Duragesic Patch Waste] 1 each MC PRN PRN each 05/06/19 Metoclopramide Oral Soln [Reglan Oral Solution -] 5 mg PEG TIDAC udc 05/06/19 Metoprolol Tartrate [Lopressor -] 100 mg PO BID tablet 05/06/19 Multivit-Minerals [Certavite-Antioxidant Liquid] 15 ml PEG DAILY cup 05/06/19 Nystatin Powder [Nystop Powder -] 1 applic TP TID applic 05/06/19 Pantoprazole Suspension [Protonix Packets For Oral Suspension -] 40 mg NGT DAILY packet 05/06/19 Polyvinyl Alcohol [Artificial Tears] 1 drop OU QID drops 05/06/19 Sodium Bicarbonate - 650 mg GT DAILY tablet 05/06/19 Sodium Chloride Inhalation [Normal Saline For Inhalation -] 3 ml IH Q6H PRN vial.[facility] 05/06/19 Aa/Hydrolyzed Collagen, Whey [Lps 15-30 Liquid] 30 ml GT BID 05/08/19 Acetaminophen Oral Solution [Tylenol Oral Solution -] 650 mg GT Q4H PRN Oxycodone HCl 5 mg GT DAILY 05/08/19 Acetylcysteine Po/INH 20% [Mucomyst 20 Oral / INH Use Only*] 400 mg NEB RBID vial 05/13/19 Amox-Tr/K Cl [Augmentin 500-125mg Tablet -] 1 tab PO BID #14 tab 05/13/19 Furosemide Oral Solution [Lasix Oral Solution -] 40 mg GT BID@0600,1400 udc Heparin - 5,000 unit SQ BID vial 05/13/19 Levalbuterol HCl [Xopenex] 0.31 mg IH Q8H PRN vial.neb 05/13/19 Mupirocin Ointment [Bactroban Ointment (For Decolonization) -] 1 applic NS BID applic 05/13/19 Verapamil HCl [Calan -] 80 mg PEG TID tablet 05/13/19 Review of Systems - Review of Systems Comments:: 06/09/19 14:01 Unable to gather considering patient's vent dependent status. <Juancho George - Last Filed: 06/09/19 17:28> *Physical Exam - Physical Exam 06/09/19 14:01 Gen: appears pale and uncomfortable Neuro: tracking, responds to commands, PERRLA HEENT: atraumatic, normocephalic, dry mucous membranes Neck: trachea midline, supple CV: tachycardic to 120s-130s, regular rhythm, no murmurs, rubs, or gallops Pulm: diffuse rhonchi Abd: soft, distended, non-tender. PEG tube with leakage of yellow fluid, appears clogged and non-functional MSK: full ROM, intact pulses Extr: 1+ pitting edema in legs, swelling in upper extremities Skin: Diffuse skin lesions and skins tears with blood blisters and petechiae <Juancho George - Last Filed: 06/09/19 17:28> - Vital Signs Last Vital Signs Temp Pulse Resp BP Pulse Ox 99.3 F 126 H 30 H 138/105 H 94 L 06/09/19 13:00 06/09/19 15:10 06/09/19 16:01 06/09/19 14:45 06/09/19 15:10 <Stephanie Molina - Last Filed: 06/09/19 18:56> ED Treatment Course - LABORATORY CBC & Chemistry Diagram: 06/09/19 14:15 06/09/19 14:15 <Juancho George - Last Filed: 06/09/19 17:28> - LABORATORY CBC & Chemistry Diagram: 06/09/19 14:15 06/09/19 14:15 - ADDITIONAL ORDERS Additional order review: Laboratory Results 06/09/19 06/09/19 06/09/19 14:51 14:40 14:15 PT with INR INR PTT (Actin FS) Anticoagulation Therapy Puncture Site ABG pH ABG pCO2 at Pt Temp ABG pO2 at Pt Temp ABG HCO3 ABG O2 Sat (Measured) ABG O2 Content ABG Base Excess Jevon Test VBG pH 7.26 L POC VBG pCO2 61.3 H POC VBG pO2 < 49 H VBG HCO3 26.8 VBG O2 Sat (Jewel) 47.5 L VBG Base Excess -0.2 Carboxyhemoglobin Methemoglobin O2 Delivery Device Oxygen Flow Rate Vent Mode Vent Rate Mechanical Rate PEEP Pressure Support Vent Sodium 152 H Potassium 5.3 H Chloride 119 H Carbon Dioxide 28 Anion Gap 6 L BUN 96.6 H Creatinine 1.8 H Est GFR (CKD-EPI)AfAm 39.74 Est GFR (CKD-EPI)NonAf 34.29 Random Glucose 106 Lactic Acid 2.7 H* Calcium 8.2 L Phosphorus 4.7 Magnesium 2.7 H Total Bilirubin 0.4 AST 30 ALT 34 Alkaline Phosphatase 201 H B-Natriuretic Peptide 29932.6 H Total Protein 8.0 Albumin 1.3 L 06/09/19 06/09/19 14:15 14:15 PT with INR 16.00 H INR 1.35 H PTT (Actin FS) 32.7 Anticoagulation Therapy No Result Required. Puncture Site Left radial ABG pH 7.35 ABG pCO2 at Pt Temp 47.5 H ABG pO2 at Pt Temp 66.1 L ABG HCO3 25.3 ABG O2 Sat (Measured) 91.8 L ABG O2 Content 11.2 ABG Base Excess 0 Jevon Test Positive VBG pH POC VBG pCO2 POC VBG pO2 VBG HCO3 VBG O2 Sat (Jewel) VBG Base Excess Carboxyhemoglobin 2 Methemoglobin < 1.0 O2 Delivery Device No Result Required. Oxygen Flow Rate 40 Vent Mode No Result Required. Vent Rate 14 Mechanical Rate No Result Required. PEEP 5.0 Pressure Support Vent No Result Required. Sodium Potassium Chloride Carbon Dioxide Anion Gap BUN Creatinine Est GFR (CKD-EPI)AfAm Est GFR (CKD-EPI)NonAf Random Glucose Lactic Acid Calcium Phosphorus Magnesium Total Bilirubin AST ALT Alkaline Phosphatase B-Natriuretic Peptide Total Protein Albumin 06/09/19 14:15 RBC 2.51 L MCV 113.2 H D MCHC 29.8 L RDW 24.1 H MPV 10.6 D Neutrophils % 90.1 H Lymphocytes % 3.5 L D Monocytes % 4.5 Eosinophils % 1.5 Basophils % 0.4 - Medications Given in the ED: ED Medications Discontinued Medications Generic Name Dose Route Start Last Admin Trade Name Freq PRN Reason Stop Dose Admin Acetaminophen 1,000 mg 06/09/19 14:43 06/09/19 15:19 Ofirmev Injection - IVPB 06/09/19 14:44 1,000 mg ONCE ONE Administration Morphine Sulfate 2 mg 06/09/19 15:54 06/09/19 16:12 Morphine Injection - IVPUSH 06/09/19 15:55 2 mg ONCE ONE Administration <Stephanie Molina - Last Filed: 06/09/19 18:56> Medical Decision Making - Medical Decision Making 06/09/19 14:03 C/f for sepsis, possibly 2/2 PNA considering patient's recent PNA, hypoxia to 92 %, tachypnea to 40s. Patient is afebrile to 99.3F rectally. Ddx includes potential flu, PE, UTI, septicemia. Unable to do CTA for PE considering patient' s CKD, may require V/Q study. - sepsis order set - admit 06/09/19 15:23 Discussed goals of care with the family. They stated that they would like comfort care and hospice. Specifically, they would like pain medication and suctioning as needed, as well as G tube re-placement. They specifically declined antibiotics, Huber catheter placement, escalation of vent settings, re- intubation, compressions, or any other aggressive measures. Discussed this with Dr. Lee, who asked that the patient be admitted under Dr. Waters on a regular med/surg bed for hospice and stated that he would text to let Dr. Waters know. Will put in palliative consult and consult social work to set up hospice. 06/09/19 15:53 Labs concerning for infection with WBC >24k and lactic acid of 2.7. Clarified once again with family, who confirmed that they do not want antibiotics at this time. 06/09/19 16:16 CXR with bilateral pleural effusions, L base atelectasis v infiltrate. 06/09/19 17:28 EKG is a-flutter at 85 bpm, but patient currently has rates in the 120s. Will give 10mg dilt (patient on dilt at home). <Juancho George - Last Filed: 06/09/19 17:28> - Critical Care Time Total Critical Care Time (minutes): 60 (acute respiratory failure) Critical Care Statement: The care of this patient involved high complexity decision making to prevent further life threatening deterioration of the patient 's condition and/or to evaluate & treat vital organ system(s) failure or risk of failure. <Stephanie Molina - Last Filed: 06/09/19 18:56> Discharge - Discharge Information Problems reviewed: Yes <Juancho George - Last Filed: 06/09/19 17:28> - Admission Yes <Stephanie Molina - Last Filed: 06/09/19 18:56> - Discharge Information Clinical Impression/Diagnosis: Tachypnea, Lactic acidosis Sepsis Qualifiers: Sepsis type: sepsis due to unspecified organism Sepsis acute organ dysfunction status: unspecified Qualified Code(s): A41.9 - Sepsis, unspecified organism Acute respiratory failure Qualifiers: Respiratory failure complication: hypoxia and hypercapnia Qualified Code(s): J96.01 - Acute respiratory failure with hypoxia Leukocytosis Qualifiers: Leukocytosis type: unspecified Qualified Code(s): D72.829 - Elevated white blood cell count, unspecified Condition: Guarded
--- NOTE | 2019-06-09 13:19 | PDOC ---
Documentation entered by Marie Duvall SCRIBE, acting as scribe for Stephanie Molina MD. Stephanie Molina MD: This documentation has been prepared by the Jadiel boyd Adrianna, SCRIBE, under my direction and personally reviewed by me in its entirety. I confirm that the documentation accurately reflects all work, treatment, procedures, and medical decision making performed by me. Attending Attestation - Resident Resident Name: GeorgeRobertoalbino - ED Attending Attestation I have performed the following: I have examined & evaluated the patient, The case was reviewed & discussed with the resident, I agree w/resident's findings & plan - HPI HPI: 83 y/o male, PMH of CABG, HTN, HLD, ESRD (s/p Nephrostomy Tubes), COPD (s/p Trach/Vent Dependent), Pneumonia, PEG-tube, sacral decubitus ulcers, HLD, HTN, pAflutter on Heparin, presents from [facility] with tachypnea. Patient unable to contribute history as he has a Trach. Per [place] paperwork, concern for pneumonia. Patient was recently admitted to this hospital for PNA (discharged 05/13/19) sent with 7 days of Augmentin; another repeat dosing of abx for pneumonia beginning last week. He presents from [facility] brought in by EMS for respiratory rate in the 40s, despite his vent set to 14, sats in low 90s. Patient is Afebrile, with tachycardia. Denies fever, chills, chest pain, SOB, palpitation, dizziness, weakness, N, V, D , abdominal pain, bladder and bowel problems, leg swelling, No sick contacts or travel. No new changes in medications. Allergies: Chlorhexidine Past Medical History: CABG, HTN, HLD, ESRD (s/p Nephrostomy Tubes), COPD (s/p Trach/Vent Dependent), Pneumonia, PEG-tube, sacral decubitus ulcers Social history: [facility] resident. No tobacco, ETOH or drug use. Surgical history: CABG, nephrostomy tubes, trach/vent Meds: as documented in EMR PMD: Dr. Zhang 06/09/19 17:11 06/09/19 17:12 - Physicial Exam PE: 06/09/19 13:18 Agree with the resident's HPI and PE as documented in the electronic medical record. nonverbal, malaised appearing, awake, but min responsive to commands/voice. +to pain. EOMI, PERRL, nl conjunctiva, anicteric; neck supple. lungs with b/l rhonchi, tachypneic, tachycardic., abdomen soft nontender. No rebound, no guarding. G tube in place with cloggage. Back nontender. RAMON x4, no focal neuro deficits. No peripheral edema. +multiple skin tears over b/l upper extremities. right forearm with blood blisters x multiple. superficial skin tears in BLE. Extremities with faint areas of petechiae, nonblanching. left cheek petechiae. +trach in place, +rhonchorous. very dry mucus membranes 06/09/19 16:02 06/09/19 17:12 06/09/19 17:12 - Critical Care Time Total Critical Care Time: 60 (acute respiratory failure) Critical Care Statement: The care of this patient involved high complexity decision making to prevent further life threatening deterioration of the patient 's condition and/or to evaluate & treat vital organ system(s) failure or risk of failure. - Medical Decision Making 06/09/19 15:55 Vital Signs Temp Pulse Resp BP Pulse Ox 99.3 F 126 H 32 H 138/105 H 94 L 06/09/19 13:00 06/09/19 15:10 06/09/19 15:54 06/09/19 14:45 06/09/19 15:10 VS reviewed, +tachy. no fever. hypertensive. sats fluctuates, 80s-90s will place on supplemental oxygen rhonchi noted, likely upper airway sounds/secretions. tracheal suction done at bedside. extensive discussion with family members at bedside (including daughters and son - Beulah, David and Ankit), confirmed DNR status. has trach in place family aware of poor prognosis, with steady decline over the past 1 year, poor functional status. would like palliative care and comfort care measures no escalation of care, no IV abx, no resuscitative measures, hemodialysis, pressors, chest compressions, blood transfusions. ok with vent currently, trach settings at baseline. ok with admission to hospital if setting in motion for hospice care/placement. performed deep tracheal suctioning, supp O2 2L pain control, hydration g tube switched out as this one was nonfunctional and backing up. thick material obstructing the G tube, so will change out for patient's comfort. glycopyrrolate for secretions scopalamine available, change to this agent (no glycopyrrolate in pharmacy) duoneb to help with his secretions and rhonchi. labs and lytes noted for 24K, leukocytosis, CKD is noted. flu neg CXR is no acute pathology, no acute changes from prior enlarged heart with sternotomy scar, trach tube in place, prominant hilar markings, b/l effusions, left base atelectasis bedside echo with mildly reduced EF, no effusion, RV<LV, normal to flat IVC with collapsibility. of note pt is already anticoagulated on heparin, has established h/o pAflutter. so even if PE with persistent tachy/borderline sats, already on heparin for AC. tachy could also be from chronic pain, so given low dose of morphine and supp O2 for respiratory distress. G tube is not obstructed, flushed with water, removed the buildup from his medications/feeds. do not have large enough tube to match this for replacement. also there is no balloon port to deflate the G tube, so will keep in place. spoke with Dr Lee, discussed the plan and comfort care measures rec'd admit to med surg with hospital/palliative consultation, admitting to Dr Waters /Leatha service, spoke and s/o to DELICIA Gutiérrez. SW contacted to determine placement/hospice care to initiate the process. med/surg bed appropriate, as pt is comfort care/DNR. 06/09/19 18:55 06/09/19 18:55 Heart Score/ECG Review #1 ECG reviewed & interpreted by me at: 16:35 Compared to previous ECG there are: Changes noted 06/09/19 17:08 Aflutter RVR at 124 bpm regular interval, left axis deviation, borderline QRS widening, interval 90 ms. nonspecific T wave abnormalities. 06/09/19 17:11
[2019-06-09 13:35] VITALS: BMI 31.1
[2019-06-09] MEDS ORDERED: ACETAMINOPHEN 1000 MG/100 ML VIAL (NON FORMULARY) IVPB ONE (14:43)
[2019-06-09 14:47] LABS: ARTERIAL BLD GAS O2 SATURATION 91.8 % (95-98); ARTERIAL BLOOD GAS BASE EXCESS 0 meq/l (-2-2); ARTERIAL BLOOD GAS PCO2 47.5 mmHg (35-45); ARTERIAL BLOOD GAS PO2 66.1 mmHg (80-100); ARTERIAL BLOOD GAS pH 7.35 (7.35-7.45)
[2019-06-09 14:48] LABS: ALLENS TEST POSITIVE
[2019-06-09 14:53] LABS: CARBOXYHEMOGLOBIN 2 % (0-2)
[2019-06-09 14:56] LABS: BASO % 0.4 % (0-2.0); EOS % 1.5 % (0-4.5); HEMATOCRIT 28.4 % (35.4-49); HEMOGLOBIN 8.5 GM/dL (11.7-16.9); LYMPH % 3.5 % (8-40); MCH 33.8 pg (25.7-33.7); MCHC 29.8 g/dl (32.0-35.9); MEAN CELL VOLUME 113.2 fl (80-96); MEAN PLT VOLUME 10.6 fl (7.5-11.1); MONO % 4.5 % (3.8-10.2); NEUT % 90.1 % (42.8-82.8); PLATELET COUNT 299 K/MM3 (134-434); RBC 2.51 M/mm3 (4.00-5.60); RDW 24.1 % (11.9-15.9); WHITE BLOOD COUNT 24.6 K/mm3 (4.0-10.0)
[2019-06-09] MEDS ORDERED: ACETAMINOPHEN INJECTION 100 ML IVPB ONE (15:05)
[2019-06-09 15:06] LABS: VENOUS PH 7.26 (7.31-7.41)
[2019-06-09 15:07] LABS: VENOUS PC02 61.3 mmHg (38-52); VENOUS PO2 < 49 mmHg (28-48)
[2019-06-09 15:08] LABS: INR 1.35 (0.83-1.09)
[2019-06-09 15:11] LABS: ACTIVATED PTT 32.7 SECONDS (25.2-36.5)
[2019-06-09 15:23] LABS: ALBUMIN 1.3 g/dl (3.4-5.0); BILIRUBIN,TOTAL 0.4 mg/dL (0.2-1); BLOOD UREA NITROGEN 96.6 mg/dL (7-18); CALCIUM 8.2 mg/dL (8.5-10.1); CREATININE 1.8 mg/dL (0.55-1.3); MAGNESIUM 2.7 mg/dL (1.8-2.4); PHOSPHOROUS 4.7 mg/dL (2.5-4.9); POTASSIUM 5.3 mmol/L (3.5-5.1)
[2019-06-09 15:28] LABS: N-TERMINAL BNP 39895.6 pg/ml (5-450)
[2019-06-09] MEDS ORDERED: GLYCOPYRROLATE 1 MG TABLET PO ONE (15:54)
[2019-06-09] MEDS ORDERED: morphine CARPU-JECT 4 MG/1 ML DISP.SYRIN IVPUSH ONE (15:54)
[2019-06-09] MEDS ORDERED: MORPHINE SULFATE 2 MG/ML VIAL ONE (16:06)
--- NOTE | 2019-06-09 16:23 | HP ---
Admitting History and Physical - Primary Care Physician PCP: Dread Lima - Admission Chief Complaint: tachypnea, fever History of Present Illness: 83 year old male with extensive PMH listed below presents to the ED from [facility] with increased work of breathing and shortness of breath. Of note he was recently admitted 05/08/2019- 05/13/2019 for pneumonia/uti, went back to [facility] on Augmentin. PCP is Dr. Lima. In the ED family requesting hospice. they do NOT want aggressive measures. NO antbx, NO labs. they maintain DNR status, want him suctioned and pain control, focus on comfort. they want morphine drip to be titrate on top of his fentanyl patches. PMH- CHRONIC RESP FAILURE-VENT DEPENDENT COPD LUPUS HTN ANEMIA STAGE 5 CKD - OFF HD ANXIETY GI BLEED SACRAL DECUB STAGE 4 FUNCTIONAL QUADRIPLEGIA DYSPHAGIA- PEG TUBE PSH- TRACH PEG CABG NEPHROSTOMY TUBES History Source: Family Member, Medical Record, Transfer Record Limitations to Obtaining History: Other - Past Medical History Cardiovascular: Yes: Aneurysm, CAD, HTN, Hyperlipdemia Pulmonary: Yes: COPD, Pneumonia, Other (trach/vent dependent) Renal/: Yes: Renal Failure Heme/Onc: Yes: Anemia Endocrine: Yes: Diabetes Mellitus - Past Surgical History Past Surgical History: Yes: AAA Repair, CABG - Smoking History Smoking history: Never smoked Have you smoked in the past 12 months: No - Alcohol/Substance Use Hx Alcohol Use: No History of Substance Use: reports: None - Social History ADL: Support Services History of Recent Travel: No Home Medications - Allergies Allergies/Adverse Reactions: Allergies Allergy/AdvReac Type Severity Reaction Status Date / Time chlorhexidine Allergy Verified 05/17/19 22:30 - Home Medications Home Medications: Ambulatory Orders Finasteride 5 mg GT DAILY 03/31/19 Latanoprost/Pf [Latanoprost 0.005% Eye Drop] 1 drop OP HS 03/31/19 Bimatoprost [Lumigan] 1 drop OU DAILY 04/26/19 Acetylcysteine Po/INH 20% [Mucomyst 20 Oral / INH Use Only*] 400 mg NEB RBID vial 05/06/19 Albuterol 0.083% Nebulizer Jossie [Ventolin 0.083% Nebulizer Soln -] 1 amp NEB RQ4H amp 05/06/19 Amino Acids/Protein Hydrolys [Prosource No Carb Liquid Pkt] 30 ml GT BID@0800, 1730 packet 05/06/19 Ascorbic Acid [Vitamin C -] 500 mg GT BID tablet 05/06/19 Bacitracin - [Bacitracin Topical Ointment -] 1 applic TP BID tube 05/06/19 Buspirone HCl [Buspar -] 5 mg PO TID PRN tablet 05/06/19 Diltiazem [Cardizem -] 60 mg PO BID tablet 05/06/19 FENTANYL 12mcg PATCH [DURAGESIC 12mcg PATCH -] 1 patch TD Q72H #0 patch.td72 MDD 1 05/06/19 Fentanyl Patch Waste [Duragesic Patch Waste] 1 each MC PRN PRN each 05/06/19 Metoclopramide Oral Soln [Reglan Oral Solution -] 5 mg PEG TIDAC udc 05/06/19 Metoprolol Tartrate [Lopressor -] 100 mg PO BID tablet 05/06/19 Multivit-Minerals [Certavite-Antioxidant Liquid] 15 ml PEG DAILY cup 05/06/19 Nystatin Powder [Nystop Powder -] 1 applic TP TID applic 05/06/19 Pantoprazole Suspension [Protonix Packets For Oral Suspension -] 40 mg NGT DAILY packet 05/06/19 Polyvinyl Alcohol [Artificial Tears] 1 drop OU QID drops 05/06/19 Sodium Bicarbonate - 650 mg GT DAILY tablet 05/06/19 Sodium Chloride Inhalation [Normal Saline For Inhalation -] 3 ml IH Q6H PRN vial.jamshid 05/06/19 Aa/Hydrolyzed Collagen, Whey [Lps 15-30 Liquid] 30 ml GT BID 05/08/19 Acetaminophen Oral Solution [Tylenol Oral Solution -] 650 mg GT Q4H PRN Oxycodone HCl 5 mg GT DAILY 05/08/19 Acetylcysteine Po/INH 20% [Mucomyst 20 Oral / INH Use Only*] 400 mg NEB RBID vial 05/13/19 Amox-Tr/K Cl [Augmentin 500-125mg Tablet -] 1 tab PO BID #14 tab 05/13/19 Furosemide Oral Solution [Lasix Oral Solution -] 40 mg GT BID@0600,1400 udc Heparin - 5,000 unit SQ BID vial 05/13/19 Levalbuterol HCl [Xopenex] 0.31 mg IH Q8H PRN vial.neb 05/13/19 Mupirocin Ointment [Bactroban Ointment (For Decolonization) -] 1 applic NS BID applic 05/13/19 Verapamil HCl [Calan -] 80 mg PEG TID tablet 05/13/19 Family Medical History Family History: Unable to Obtain Review of Systems Unable to obtain ROS, reason: patient is on vent Physical Examination Vital Signs: Vital Signs Temperature 99.3 F 06/09/19 13:00 Pulse Rate 126 H 06/09/19 15:10 Respiratory Rate 32 H 06/09/19 15:54 Blood Pressure 138/105 H 06/09/19 14:45 O2 Sat by Pulse Oximetry (%) 94 L 06/09/19 15:10 Constitutional: Yes: Anxious, Moderate Distress Neck: Yes: Trachea Midline, Other (trach, vent) Cardiovascular: Yes: Tachycardia Respiratory: Yes: Accessory Muscle Use, Mechanically Ventilated Gastrointestinal: Yes: Normal Bowel Sounds, Other (peg tube leaking) Extremities: Yes: Cyanosis, Erythema Integumentary: Yes: Bruising, Erythema, Petechiae Neurological: Yes: Other Labs: CBC, BMP 06/09/19 14:15 06/09/19 14:15 Problem List - Problems (1) Sepsis Assessment/Plan: no labs no antbx no ivf morphine gtt, on top of fentanyl patches scopalamine ativan for anxiety pal care eval for inpatient hospice Code(s): A41.9 - SEPSIS, UNSPECIFIED ORGANISM (2) Acute and chronic respiratory failure Assessment/Plan: family wants to keep vent for now monitor sats duo neb Code(s): J96.20 - ACUTE AND CHR RESP FAILURE, UNSP W HYPOXIA OR HYPERCAPNIA (3) Anemia Assessment/Plan: this is his baseline no labs Code(s): D64.9 - ANEMIA, UNSPECIFIED (4) COPD (chronic obstructive pulmonary disease) Assessment/Plan: nebtx Code(s): J44.9 - CHRONIC OBSTRUCTIVE PULMONARY DISEASE, UNSPECIFIED (5) Decubitus ulcer of sacral region, stage 4 Assessment/Plan: turn and reposition local wound care Code(s): L89.154 - PRESSURE ULCER OF SACRAL REGION, STAGE 4 (6) ESRD (end stage renal disease) Code(s): N18.6 - END STAGE RENAL DISEASE (7) Functional quadriplegia Assessment/Plan: vent, peg Code(s): R53.2 - FUNCTIONAL QUADRIPLEGIA (8) HLD (hyperlipidemia) Code(s): E78.5 - HYPERLIPIDEMIA, UNSPECIFIED (9) HTN (hypertension) Code(s): I10 - ESSENTIAL (PRIMARY) HYPERTENSION (10) Ventilator dependence Code(s): Z99.11 - DEPENDENCE ON RESPIRATOR [VENTILATOR] STATUS
[2019-06-09] MEDS ORDERED: FENTANYL PATCH WASTE MC PRN (16:55)
[2019-06-09 16:56] LABS: PLATELET ESTIMATE ADEQUATE
[2019-06-09] MEDS ORDERED: ALBUTEROL SO4 2.5/IPRATROPIUM 0.5 INH SOL 3 ML VIAL.NEB. NEB PRN (16:56)
[2019-06-09] MEDS ORDERED: fentaNYL 25mcg/hr PATCH.TD72 TD SCH (17:00)
[2019-06-09] MEDS ORDERED: SCOPOLAMINE HYDROBROMIDE 1 PATCH PATCH.TD72 TD SCH (17:00)
[2019-06-09] MEDS ORDERED: fentaNYL 100mcg/hr PATCH.TD72 TD SCH (17:00)
[2019-06-09] MEDS ORDERED: dilTIAZem HCL 50 MG/10 ML - 10 ML VIAL IVPUSH ONE (17:29)
[2019-06-09] MEDS ORDERED: MORPHINE SULFATE/0.9% NACL/PF 100 MG/100 ML BAG ONE ×2 (18:00→20:14)
[2019-06-09] MEDS ORDERED: dilTIAZem HCL 125 MG/25 ML - 25 ML VIAL ONE (19:06)
[2019-06-09] MEDS ORDERED: LORazepam 2 MG/ML SDV VIAL ONE (20:03)
[2019-06-09] MEDS: LORazepam 2 MG/ML SDV VIAL IVPUSH PRN (20:06)
[2019-06-09] MEDS: MORPHINE SULFATE/0.9% NACL/PF 100 MG/100 ML BAG IVPB SCH (20:23)
[2019-06-10] MEDS ORDERED: LORazepam 2 MG/ML SDV VIAL ONE ×2 (02:45→12:52)
[2019-06-10] MEDS: LORazepam 2 MG/ML SDV VIAL IVPUSH PRN ×2 (02:49→12:59)
[2019-06-10 06:54] VITALS: TEMP 98.4
--- NOTE | 2019-06-10 09:19 | PN ---
Progress Note, Physician History of Present Illness: 83 year old male with extensive PMH listed below presents to the ED from [facility] with increased work of breathing and shortness of breath. Of note he was recently admitted 05/08/2019- 05/13/2019 for pneumonia/uti, went back to [facility] on Augmentin. PCP is Dr. Lima. In the ED family requesting hospice. they do NOT want aggressive measures. NO antbx, NO labs. they maintain DNR status, want him suctioned and pain control, focus on comfort. they want morphine drip to be titrate on top of his fentanyl patches. PMH- CHRONIC RESP FAILURE-VENT DEPENDENT COPD LUPUS HTN ANEMIA STAGE 5 CKD - OFF HD ANXIETY GI BLEED SACRAL DECUB STAGE 4 FUNCTIONAL QUADRIPLEGIA DYSPHAGIA- PEG TUBE PSH- TRACH PEG CABG NEPHROSTOMY TUBES - Current Medication List Current Medications: Active Medications Albuterol/Ipratropium (Duoneb -) 1 amp NEB Q6H PRN PRN Reason: SHORTNESS OF BREATH Fentanyl (Duragesic 100mcg Patch -) 1 patch TD Q72H BASSEM Stop: 06/16/19 16:55 Fentanyl (Duragesic 25mcg Patch -) 1 patch TD Q72H BASSEM Stop: 06/16/19 16:55 Morphine Sulfate (Morphine 100mg/100ml-0.9% Nacl) 100 mg in 100 mls @ 1 mls/hr IVPB TITR BASSEM; Protocol Last Admin: 06/09/19 20:23 Dose: 1 mg/hr, 1 mls/hr Lorazepam (Ativan Injection -) 1 mg IVPUSH Q6H PRN PRN Reason: ANXIETY Last Admin: 06/10/19 02:49 Dose: 1 mg Miscellaneous (Duragesic Patch Waste) 1 each MC PRN PRN PRN Reason: PAIN Scopolamine HBr (Transderm-Scop -) 1 patch TD Q72H BASSEM Last Admin: 06/09/19 21:02 Dose: 1 patch - Objective Vital Signs: Vital Signs Temperature 98.4 F 06/10/19 06:00 Pulse Rate 130 H 06/10/19 06:00 Respiratory Rate 22 H 06/10/19 06:00 Blood Pressure 108/63 06/10/19 06:00 O2 Sat by Pulse Oximetry (%) 99 06/10/19 06:00 Cardiovascular: Yes: S1, S2 Respiratory: Yes: Mechanically Ventilated Labs: CBC, BMP 06/09/19 14:15 06/09/19 14:15 INR, PTT INR 1.35 (0.83-1.09) H 06/09/19 14:15 Problem List - Problems (1) Leukocytosis Code(s): D72.829 - ELEVATED WHITE BLOOD CELL COUNT, UNSPECIFIED Qualifiers: Leukocytosis type: unspecified Qualified Code(s): D72.829 - Elevated white blood cell count, unspecified (2) Acute and chronic respiratory failure Code(s): J96.20 - ACUTE AND CHR RESP FAILURE, UNSP W HYPOXIA OR HYPERCAPNIA (3) Decubitus ulcer of sacral region, stage 4 Code(s): L89.154 - PRESSURE ULCER OF SACRAL REGION, STAGE 4 Assessment/Plan daughter at bedside plan of care discussed and family want comfort care no labs or further treatment continue with morphine drip
--- NOTE | 2019-06-10 11:59 | CON.PULM ---
Consult Consult Specialty:: PULM/CCM Referred by:: LANCE Reason for Consultation:: Chronic Respiratory Failure - History of Present Illness Chief Complaint: Chronic Respiratory Failure History of Present Illness: 83 M, Chronic Respiratory Failure, COPD, Lupus, HTN, Anemia, CKD, GI Bleed, Sacral decubitus ulcer, Functional Quadriplegia, and PEG. Recent admission PNA / UTI. Previously on Augmentin. Sent from SNF for further assessment and management. According to documentation the family does not want aggressive measures, ABX, and is DNR. They do want him suctioned and provided with pain control and made comfortable. They have apparently requested a morphine drip. He is poorly responsive but grimaces to noxious stimuli. He is on AC Mode of vent. - History Source History Provided By: Medical Record Limitations to Obtaining History: Clinical Condition - Past Medical History Cardio/Vascular: Yes: Aneurysm, CAD, HTN, Hyperlipdemia Pulmonary: Yes: COPD, O2 Dependent, Pneumonia, Previously Intubated, Other ( trach/vent dependent) Renal/: Yes: Renal Failure Endocrine: Yes: Diabetes Mellitus - Past Surgical History Past Surgical History: Yes: AAA Repair, CABG - Alcohol/Substance Use Hx Alcohol Use: No History of Substance Use: reports: None - Smoking History Smoking history: Never smoked Have you smoked in the past 12 months: No - Social History ADL: Support Services History of Recent Travel: No Home Medications - Allergies Allergies/Adverse Reactions: Allergies Allergy/AdvReac Type Severity Reaction Status Date / Time chlorhexidine Allergy Verified 06/09/19 22:44 - Home Medications Home Medications: Ambulatory Orders Finasteride 5 mg GT DAILY 03/31/19 Latanoprost/Pf [Latanoprost 0.005% Eye Drop] 1 drop OP HS 03/31/19 Bimatoprost [Lumigan] 1 drop OU DAILY 04/26/19 Albuterol 0.083% Nebulizer Jossie [Ventolin 0.083% Nebulizer Soln -] 1 amp NEB RQ4H amp 05/06/19 Amino Acids/Protein Hydrolys [Prosource No Carb Liquid Pkt] 30 ml GT BID@0800, 1730 packet 05/06/19 Ascorbic Acid [Vitamin C -] 500 mg GT BID tablet 05/06/19 Bacitracin - [Bacitracin Topical Ointment -] 1 applic TP BID tube 05/06/19 Buspirone HCl [Buspar -] 5 mg PO TID PRN tablet 05/06/19 Diltiazem [Cardizem -] 60 mg PO BID tablet 05/06/19 Metoclopramide Oral Soln [Reglan Oral Solution -] 5 mg PEG TIDAC udc 05/06/19 Metoprolol Tartrate [Lopressor -] 100 mg PO BID tablet 05/06/19 Multivit-Minerals [Certavite-Antioxidant Liquid] 15 ml PEG DAILY cup 05/06/19 Nystatin Powder [Nystop Powder -] 1 applic TP TID applic 05/06/19 Pantoprazole Suspension [Protonix Packets For Oral Suspension -] 40 mg NGT DAILY packet 05/06/19 Polyvinyl Alcohol [Artificial Tears] 1 drop OU QID drops 05/06/19 Sodium Bicarbonate - 650 mg GT DAILY tablet 05/06/19 Sodium Chloride Inhalation [Normal Saline For Inhalation -] 3 ml IH Q6H PRN vial[facility] 05/06/19 Aa/Hydrolyzed Collagen, Whey [Lps 15-30 Liquid] 30 ml GT BID 05/08/19 Acetaminophen Oral Solution [Tylenol Oral Solution -] 650 mg GT Q4H PRN Oxycodone HCl 5 mg GT DAILY 05/08/19 Acetylcysteine Po/INH 20% [Mucomyst 20 Oral / INH Use Only*] 400 mg NEB RBID vial 05/13/19 Furosemide Oral Solution [Lasix Oral Solution -] 40 mg GT BID@0600,1400 c Heparin - 5,000 unit SQ BID vial 05/13/19 Levalbuterol HCl [Xopenex] 0.31 mg IH Q8H PRN vial[facility] 05/13/19 Mupirocin Ointment [Bactroban Ointment (For Decolonization) -] 1 applic NS BID applic 05/13/19 Verapamil HCl [Calan -] 80 mg PEG TID tablet 05/13/19 FENTANYL 25mcg PATCH [DURAGESIC 25mcg PATCH -] 1 each TD Q72H 06/09/19 Fentanyl 100 mcg TD ONCE 06/09/19 Levofloxacin 250 mg GT DAILY 06/09/19 Review of Systems Unable to obtain ROS, reason: unable to provide Physical Exam Vital Sings: Vital Signs Temperature 98.4 F 06/10/19 06:00 Pulse Rate 120 H 06/10/19 10:04 Respiratory Rate 18 06/10/19 10:30 Blood Pressure 91/54 L 06/10/19 10:04 O2 Sat by Pulse Oximetry (%) 99 06/10/19 06:00 Constitutional: Yes: No Distress, Other (Vented ) Eyes: Yes: Conjunctiva Clear HENT: Yes: Other (Trach intact ) Neck: Yes: Trachea Midline, Other (Trach intact ) Cardiovascular: Yes: Regular Rate and Rhythm Respiratory: Yes: Diminished, Mechanically Ventilated, Rhonchi. No: SOB, SOB on Exertion, Stridor, Tachypnea, Wheezes ...Inspection: Yes: WNL ...Clubbing: No Gastrointestinal: Yes: Normal Bowel Sounds, Soft Musculoskeletal: Yes: WNL Extremities: Yes: Delayed Capillary Refill Edema: No Peripheral Pulses WNL: Yes Neurological: Yes: Pre-Existing Deficit Labs: CBC, BMP 06/09/19 14:15 06/09/19 14:15 ABG Results ABG pH 7.35 (7.35-7.45) 06/09/19 14:15 ABG pCO2 at Pt Temp 47.5 mmHg (35-45) H 06/09/19 14:15 ABG pO2 at Pt Temp 66.1 mmHg (80-100) L 06/09/19 14:15 ABG HCO3 25.3 mmol/L (22-27) 06/09/19 14:15 ABG O2 Sat (Measured) 91.8 % (95-98) L 06/09/19 14:15 ABG O2 Content 11.2 % vol 06/09/19 14:15 ABG Base Excess 0 meq/l (-2-2) 06/09/19 14:15 Imaging - Results Chest X-ray: Report Reviewed, Image Reviewed Problem List - Problems (1) Chronic respiratory failure Code(s): J96.10 - CHRONIC RESPIRATORY FAILURE, UNSP W HYPOXIA OR HYPERCAPNIA (2) Anemia Code(s): D64.9 - ANEMIA, UNSPECIFIED (3) Atrial flutter Code(s): I48.92 - UNSPECIFIED ATRIAL FLUTTER (4) COPD (chronic obstructive pulmonary disease) Code(s): J44.9 - CHRONIC OBSTRUCTIVE PULMONARY DISEASE, UNSPECIFIED (5) Decubitus ulcer of sacral region, stage 4 Code(s): L89.154 - PRESSURE ULCER OF SACRAL REGION, STAGE 4 (6) Diabetes mellitus Code(s): E11.9 - TYPE 2 DIABETES MELLITUS WITHOUT COMPLICATIONS (7) Functional quadriplegia Code(s): R53.2 - FUNCTIONAL QUADRIPLEGIA (8) GI bleed Code(s): K92.2 - GASTROINTESTINAL HEMORRHAGE, UNSPECIFIED (9) HLD (hyperlipidemia) Code(s): E78.5 - HYPERLIPIDEMIA, UNSPECIFIED (10) HTN (hypertension) Code(s): I10 - ESSENTIAL (PRIMARY) HYPERTENSION (11) Macular degeneration Code(s): H35.30 - UNSPECIFIED MACULAR DEGENERATION (12) Status post tracheostomy Code(s): Z93.0 - TRACHEOSTOMY STATUS (13) Ventilator dependence Code(s): Z99.11 - DEPENDENCE ON RESPIRATOR [VENTILATOR] STATUS Assessment/Plan Will D/W PMD and family further GOC. For apparent hospice and comfort care measures. Fentanyl patches MS drip titrated for comfort Will follow Thank you. Dr Castro
--- NOTE | 2019-06-10 14:17 | EKG ---
Test Reason : Blood Pressure : / mmHG Vent. Rate : 124 BPM Atrial Rate : 248 BPM P-R Int : 000 ms QRS Dur : 090 ms QT Int : 276 ms P-R-T Axes : 247 -46 129 degrees QTc Int : 396 ms ATRIAL FLUTTER WITH 2:1 A-V CONDUCTION LEFT ANTERIOR FASCICULAR BLOCK CANNOT RULE OUT ANTERIOR INFARCT , AGE UNDETERMINED ABNORMAL ECG WHEN COMPARED WITH ECG OF 08-MAY-2019 17:29, ATRIAL FLUTTER HAS REPLACED SINUS RHYTHM ST NOW DEPRESSED IN INFERIOR LEADS ST NOW DEPRESSED IN ANTERIOR LEADS ST LESS DEPRESSED IN LATERAL LEADS Confirmed by KENNEY PIERRE MD ([id number]) on 06/10/2019 2:17:20 PM Referred By: Confirmed By:KENNEY PIERRE MD
[2019-06-10] MEDS: MORPHINE SULFATE/0.9% NACL/PF 100 MG/100 ML BAG IVPB SCH (17:06)
[2019-06-10 18:40] VITALS: BP 0/0; PULSE 0
== END 2019-06-10 19:07 | disposition expired | DRG 871 ==
LOC: JER 12:50 → JERBED 15:29
PROVIDERS: ADMIT Family Medicine; ATTEND Family Medicine
PROC: 5A1945Z Respiratory Ventilation, 24-96 Consecutive Hours (ICD-10-PCS; principal; 2019-06-09)
DX: A41.9 Sepsis, unspecified organism (principal); L89.154 Pressure ulcer of sacral region, stage 4; J96.21 Acute and chronic respiratory failure with hypoxia; R53.2 Functional quadriplegia; J18.9 Pneumonia, unspecified organism; Z99.11 Dependence on respirator [ventilator] status; I48.92 Unspecified atrial flutter; Z93.0 Tracheostomy status; L93.0 Discoid lupus erythematosus; Z93.6 Other artificial openings of urinary tract status; I25.10 Atherosclerotic heart disease of native coronary artery without angina pectoris; E11.9 Type 2 diabetes mellitus without complications; Z95.1 Presence of aortocoronary bypass graft; E78.5 Hyperlipidemia, unspecified; H35.30 Unspecified macular degeneration; I10 Essential (primary) hypertension; Z93.1 Gastrostomy status
CPT/HCPCS: 36415; 36600; 71045-TC-FY; 80053; 82375; 82803; 83050; 83605; 83735; 83880; 84100; 85025; 85610; 85730; 87040; 87804; 93005; 93010; 93308; 94002; 99291; J0131